=== PATIENT | male | born 1955 | race Caucasian/White ===

== ENCOUNTER 2021-05-28 09:05 | Outpatient (RCR) | payer MEDICARE | END 2021-08-26 | disposition home or self-care (01) | LOC: ONC 09:05 | PROVIDERS: ATTEND Radiology Radiation Oncology | DX: C61 Malignant neoplasm of prostate (principal); I25.10 Atherosclerotic heart disease of native coronary artery without angina pectoris; I11.0 Hypertensive heart disease with heart failure; I50.9 Heart failure, unspecified; J43.9 Emphysema, unspecified; E78.00 Pure hypercholesterolemia, unspecified; M06.9 Rheumatoid arthritis, unspecified | CPT/HCPCS: 99204 ==

== ENCOUNTER → 2021-11-21 | Outpatient (CLI) | payer MEDICARE | END | disposition home or self-care (01) | LOC: PREOP 05:29 | PROVIDERS: ATTEND Radiology Radiation Oncology | DX: Z01.818 Encounter for other preprocedural examination (principal) ==

== ENCOUNTER 2021-11-28 10:45 | Day surgery (SDC) | payer MEDICARE, MEDICAID ==
[~2021-11-28] VITALS: Ht 165.1 cm; Wt 82.7 kg
[2021-11-28] VITALS (11 sets, daily range): BP systolic 130–163; BP diastolic 83–106
[~2021-11-28 10:45] MED LIST: ACHD5005 PO; ATOR20TA66 PO; DILT120T3 PO; FURO40TA4 PO; GUAI120013 PO; IPRA3AMP31 IH; IRON; MAGN500C15 PO; PANT40TA52 PO
[2021-11-28] MEDS ORDERED: LACTATED RINGERS 1,000 ML IV PRN (11:00)
--- NOTE | 2021-11-28 11:26 | Progress Note-Pre Operative ---
Pre-Operative Progress Note H&P Reviewed The H&P was reviewed, patient examined and no changes noted. Date Seen by Provider: Nov 28, 2021 Time Seen by Provider: 11: Date H&P Reviewed: Nov 28, 2021 Time H&P Reviewed: 11: Pre-Operative Diagnosis: Prostate cancer cT1c, PSA 11.5, Flavia 7 (3+4) BINDU KIM MD Nov 28, 2021 11:26
--- NOTE | 2021-11-28 11:29 | Discharge Inst-Simple/Standard ---
Discharge Inst-Standard Reconcile Patient Problems Problems Reviewed?: Yes Discharge Medications New, Converted or Re-Newed RX: Other (Patient already has) Patient Instructions/Follow Up Plan of Care/Instructions/FU: Treatment planning ct scan at [facility] cancer center 12/12/21 at 1:00 pm. Activity as Tolerated: Yes Discharge Diet: No Restrictions BINDU KIM MD Nov 28, 2021 11:29
[2021-11-28] MEDS ORDERED: proPOfol 200 MG/20 ML (DIPRIVAN) VIAL IV ONE (13:34)
[2021-11-28] MEDS ORDERED: LIDOCAINE PF 2% 5 ML (XYLOCAINE) VIAL ONE (13:34)
[2021-11-28] MEDS ORDERED: fentaNYL INJ 100 MCG/2 ML AMP ONE (13:34)
[2021-11-28] MEDS ORDERED: SEVOFLURANE (ULTANE) 15 ML INHAL SOLN ONE (14:11)
[2021-11-28] MEDS ORDERED: ONDANSETRON 4 MG/2 ML (SDV) Z0FRAN ONE (14:11)
--- NOTE | 2021-11-28 14:21 | Progress Note-Post Operative ---
Post-Operative Progess Note Surgeon (s)/Web Editor (s) Surgeon Ashley CISNEROS MD Web Editor: BINDU KIM MD Pre-Operative Diagnosis Prostate cancer cT1c, PSA 11.5, Lynn 7 (3+4) Post-Operative Diagnosis Same as preop Procedure & Operative Findings Date of Procedure 11/28/21 Procedure Performed/Findings (1) Placement of fiducial gold seed markers (2) Injection of biodegradable hydrogel prostate-rectal spacer utilizing the [employer] system Anesthesia Type General Estimated Blood Loss Estimated blood loss (mL): None Specimens/Packing Specimens Removed None Packing: None BINDU KIM MD Nov 28, 2021 14:21
--- NOTE | 2021-11-28 14:24 | Anesthesia-General Post-Op ---
General Patient Condition Mental Status/LOC: Same as Preop Cardiovascular: Satisfactory Nausea/Vomiting: Absent Respiratory: Satisfactory Pain: Controlled Complications: Absent Post Op Complications Complications None Follow Up Care/Instructions Patient Instructions None needed. Anesthesia/Patient Condition Patient Condition Patient is doing well, no complaints, stable vital signs, no apparent adverse anesthesia problems. No complications reported per nursing. BENJAMÍN VELEZ CRNA Nov 28, 2021 14:24
[2021-11-28] MEDS ORDERED: morphine INJ 10 MG/ML 1ML (SYR OR VIAL) ONE (14:29)
[2021-11-28] MEDS ORDERED: morphine INJ 10 MG/ML 1ML (SYR OR VIAL) IVP STA (14:32)
[2021-11-28] MEDS ORDERED: HYDROcodone/APAP 5 MG/325 MG (LORTAB) TAB ONE (15:25)
[2021-11-28] MEDS ORDERED: HYDROcodone/APAP 5 MG/325 MG (LORTAB) TAB PO ONE (15:30)
== END 2021-11-28 16:57 | disposition home or self-care (01) ==
LOC: SDC 10:45
PROVIDERS: ATTEND Radiology Radiation Oncology
DX: C61 Malignant neoplasm of prostate (principal); I11.0 Hypertensive heart disease with heart failure; I50.9 Heart failure, unspecified; I25.10 Atherosclerotic heart disease of native coronary artery without angina pectoris; F17.210 Nicotine dependence, cigarettes, uncomplicated; J44.9 Chronic obstructive pulmonary disease, unspecified; M06.9 Rheumatoid arthritis, unspecified; I73.9 Peripheral vascular disease, unspecified; I25.2 Old myocardial infarction; E78.00 Pure hypercholesterolemia, unspecified; Z85.3 Personal history of malignant neoplasm of breast; Z79.899 Other long term (current) drug therapy; Z99.81 Dependence on supplemental oxygen; Z79.891 Long term (current) use of opiate analgesic; Z98.890 Other specified postprocedural states; Z85.49 Personal history of malignant neoplasm of other male genital organs; Z85.118 Personal history of other malignant neoplasm of bronchus and lung
CPT/HCPCS: 87081

== ENCOUNTER → 2022-01-17 | Outpatient (RCR) | payer MEDICARE, MEDICAID | END | disposition home or self-care (01) | LOC: ONC 12-19 08:50 | PROVIDERS: ATTEND Radiology Radiation Oncology | DX: Z51.0 Encounter for antineoplastic radiation therapy (principal); C61 Malignant neoplasm of prostate; I25.10 Atherosclerotic heart disease of native coronary artery without angina pectoris; I11.0 Hypertensive heart disease with heart failure; I50.9 Heart failure, unspecified; J43.9 Emphysema, unspecified; E78.00 Pure hypercholesterolemia, unspecified; M06.9 Rheumatoid arthritis, unspecified | CPT/HCPCS: 77300; 77301; 77334; 77336; 77338; 77385 ==

== ENCOUNTER 2022-02-05 08:52 | Outpatient (RCR) | payer MEDICARE, MEDICAID ==
[2022-02-13] MEDS ORDERED: FERR325T18 PO (15:07)
[2022-02-13] MEDS ORDERED: POTA-179 PO (15:07)
[2022-02-13] MEDS ORDERED: MULT-1136 PO (15:07)
[2022-02-13] MEDS ORDERED: HYDR-3817 PO (15:07)
[2022-02-13] MEDS ORDERED: MAGN400T7 PO (15:07)
[2022-02-13] MEDS ORDERED: DILT120C85 PO (15:07)
== END 2022-02-16 | disposition home or self-care (01) ==
LOC: ONC 08:52
PROVIDERS: ATTEND Radiology Radiation Oncology
DX: Z51.0 Encounter for antineoplastic radiation therapy (principal); C61 Malignant neoplasm of prostate; I25.10 Atherosclerotic heart disease of native coronary artery without angina pectoris; I11.0 Hypertensive heart disease with heart failure; I50.9 Heart failure, unspecified; J43.9 Emphysema, unspecified; E78.00 Pure hypercholesterolemia, unspecified; M06.9 Rheumatoid arthritis, unspecified
CPT/HCPCS: 77336; 77385

== ENCOUNTER 2022-02-12 09:28 | Inpatient (IN) | payer MEDICARE, MEDICAID ==
[~2022-02-12] VITALS: Ht 165.1 cm; Wt 79.8 kg
[2022-02-12] MEDS ORDERED: RT-ALBUTEROL/IPRATROPIUM 3 ML (DUONEB) VIAL INH ONE (09:45)
[2022-02-12] MEDS ORDERED: fentaNYL INJ 100 MCG/2 ML AMP IVP ONE (09:45)
[2022-02-12] MEDS ORDERED: methylPREDNISolone 125 MG (Solu-MEDROL) VIAL IVP ONE (09:45)
[2022-02-12 09:54] LABS: BASOPHILS % (AUTO) 0 % (0-10); EOSINOPHILS # (AUTO) 0.1 10^3/uL (0.0-0.3); EOSINOPHILS % (AUTO) 1 % (0-10); HEMATOCRIT 40 % (40-54); HEMOGLOBIN 12.9 g/dL (13.3-17.7); LYMPHOCYTES # (AUTO) 1.1 10^3/uL (1.0-4.0); LYMPHOCYTES % (AUTO) 17 % (12-44); MEAN CORPUSCULAR HEMOGLOBIN 31 pg (25-34); MEAN CORPUSCULAR HGB CONC 33 g/dL (32-36); MEAN CORPUSCULAR VOLUME 94 fL (80-99); MEAN PLATELET VOLUME 10.3 fL (9.0-12.2); MONOCYTES # (AUTO) 0.5 10^3/uL (0.0-1.0); MONOCYTES % (AUTO) 8 % (0-12); NEUTROPHILS # (AUTO) 4.7 10^3/uL (1.8-7.8); NEUTROPHILS % (AUTO) 74 % (42-75); PLATELET COUNT 205 10^3/uL (130-400); WHITE BLOOD COUNT 6.4 10^3/uL (4.3-11.0)
[2022-02-12 09:58] LABS: ALBUMIN 4.1 GM/DL (3.2-4.5); POTASSIUM 3.7 MMOL/L (3.6-5.0)
[2022-02-12 09:59] LABS: CALCIUM 9.7 MG/DL (8.5-10.1)
[2022-02-12 10:00] LABS: INR 0.9 (0.8-1.4); PROTHROMBIN TIME PATIENT 12.9 SEC (12.2-14.7); TOTAL PROTEIN 7.4 GM/DL (6.4-8.2)
[2022-02-12 10:02] LABS: BILIRUBIN,TOTAL 0.7 MG/DL (0.1-1.0)
[2022-02-12 10:04] LABS: CREATININE SERUM 0.93 MG/DL (0.60-1.30)
[2022-02-12 10:07] LABS: MAGNESIUM 2.1 MG/DL (1.6-2.4)
--- NOTE | 2022-02-12 10:48 | Diagnostic Imaging Report ---
INDICATION: Cough, dyspnea. TECHNIQUE/COMPARISON: A portable AP view of the chest was obtained. There is no previous study for comparison. FINDINGS: The overall heart size is within normal limits. The pulmonary vascularity is at the upper limits of normal without overt edema. There may be slight basilar atelectasis. No consolidation or significant pleural fluid is seen. IMPRESSION: Borderline pulmonary venous congestion with slight basilar atelectasis. Dictated by: Dictated on workstation # [id number]
[2022-02-12] MEDS ORDERED: HOLD METFORMIN - RECEIVED CONTRAST 20 ML VIAL IV SCH (11:00)
[2022-02-12] MEDS ORDERED: NS 100 ML (IVPB) BAG IV ONE (11:00)
[2022-02-12] MEDS ORDERED: IOHEXOL 350 MG/ML 100 ML (OMNIPAQUE 350) VIAL IV ONE (11:00)
[2022-02-12] MEDS ORDERED: CATHETER FLUSH 10 ML SYR IV PRN ×2 (11:00→15:00)
--- NOTE | 2022-02-12 11:24 | Diagnostic Imaging Report ---
PROCEDURE: CT angiography Chest TECHNIQUE: After intravenous administration of contrast, thin section axial CT angiography of the chest was performed. 3D MIP reconstructions were made. All CT scans use one or more of the following dose optimizing techniques: automated exposure control, MA and/or KvP adjustment based on a patient size and exam type, or iterative reconstruction. INDICATION: Chest pain, cough and shortness of air COMPARISON: Chest radiograph from earlier same day. FINDINGS: Vasculature: No pulmonary emboli. No CT evidence of pulmonary hypertension or right ventricular strain. Thoracic aorta is normal in caliber. No aortic dissection or pseudoaneurysm. Heart and mediastinum: Visualized thyroid is normal. No supraclavicular, axillary, or intra-thoracic lymphadenopathy. The heart is normal in size without pericardial effusion. Dense mitral annulus calcifications are present. Calcification is also present in the aortic valve leaflets. Pleura: Small left and trace right pleural effusions. Lungs and airway: Severe centrilobular emphysema is present. Bandlike opacities are present in the left apex with architectural distortion. There are few patchy centrilobular micro-nodules and groundglass in the left upper lobe as well. No interlobular septal thickening. Upper abdomen: Allowing for the phase of contrast, no acute abnormality in the upper abdomen is seen. Musculoskeletal: No concerning osseous lesion. IMPRESSION: 1. No pulmonary emboli or acute aortic syndrome. 2. Left upper lobe scattered centrilobular opacities and nodules are likely due to an infectious process. 3. Severe emphysema with left apical bandlike opacity and architectural distortion. This is likely due to an area of scar, but no prior imaging is available to document stability. Therefore, advise followup CT chest without contrast in 3 months to reassess 4. Small left and trace right pleural effusions. 5. Calcified aortic valve leaflets can be seen with aortic stenosis. Dictated by: Dictated on workstation # [id number]
[2022-02-12] MEDS ORDERED: CEFEPIME INJECTION 2,000 MG in NS (IVPB) 50 ML IV ONE (13:30)
--- NOTE | 2022-02-12 13:33 | ED General ---
General Chief Complaint: Chest Pain Stated Complaint: SOB Nursing Triage Note: PT TO RM 10 PT CO OF C/P, L SIDE NECK PAIN, COUGH, SOA, DENIES FEVERS. RATES 8/10. PT WEARS O2 @3L PER N/C. Source of Information: Patient Exam Limitations: No Limitations History of Present Illness Date Seen by Provider: Feb 12, 2022 Time Seen by Provider: 09:42 Initial Comments This is 66-year-old gentleman presents to the emergency room by private vehicle with complaints of left-sided pain from his neck down through the upper abdomen with coughing and deep breathing. He has had significant shortness of breath and wheezing for the past several days. It has been progressive and he is now barely able to even walk to the bathroom. He normally wears oxygen at 3 L/min by nasal cannula but has bumped it up to 4 L and is still struggling. He has been afebrile. His primary care provider is at the [facility] clinic in [place]. Allergies and Home Medications Allergies Coded Allergies: No Known Drug Allergies (Unverified , 11/26/21) Patient Home Medication List Home Medication List Reviewed: Yes Atorvastatin Calcium (Atorvastatin Calcium) 20 Mg Tablet, 20 MG PO DAILY, (Reported) Entered as Reported by: GENIA CODY on 11/26/21 1307 Diltiazem HCl (Diltiazem HCl) 120 Mg Tablet, 120 MG PO DAILY, (Reported) Entered as Reported by: GENIA CODY on 11/26/21 1307 Furosemide (Furosemide) 40 Mg Tablet, 40 MG PO DAILY, (Reported) Entered as Reported by: GENIA CODY on 11/26/21 1307 Guaifenesin (Mucinex) 1,200 Mg Tab.er.12h, 1,200 MG PO UD, (Reported) Entered as Reported by: GENIA CODY on 11/26/21 1307 Hydrocodone/Acetaminophen (Hydrocodone-Acetamin 5-325 mg) 1 Each Tablet, 1 TAB PO UD PRN for PAIN-MODERATE (5-7), (Reported) Entered as Reported by: GENIA CODY on 11/26/21 1307 Ipratropium/Albuterol Sulfate (Iprat-Albut 0.5-3(2.5) mg/3 ml) 3 Ml Ampul.neb, 3 ML IH QID PRN for SHORTNESS OF BREATH, (Reported) Entered as Reported by: GENIAMARYCARMEN CODY on 11/26/211306 Magnesium Oxide (Magnesium) 500 Mg Capsule, 500 MG PO HS, (Reported) Entered as Reported by: GENIAMARYCARMEN CODY on 11/26/211306 Pantoprazole Sodium (Pantoprazole Sodium) 40 Mg Tablet.dr, 40 MG PO HS, (Reported) Entered as Reported by: GENIA CODY on 11/26/211306 [Iron] , (Reported) Entered as Reported by: GENIA CODY on 11/26/211306 Review of Systems Review of Systems Constitutional: No fever; weakness EENTM: no symptoms reported Respiratory: see HPI Cardiovascular: no symptoms reported Gastrointestinal: no symptoms reported Genitourinary: no symptoms reported Musculoskeletal: no symptoms reported Skin: no symptoms reported Psychiatric/Neurological: No Symptoms Reported Hematologic/Lymphatic: No Symptoms Reported Immunological/Allergic: no symptoms reported Past Szitwkl-Appbpl-Ggvhpx Hx Patient Social History Tobacco Use?: Yes Tobacco type used: Cigarettes Smoking Status: Current Everyday Smoker Substance use?: No Alcohol Use?: Yes Alcohol type: Beer Alcohol Frequency: Daily Pt feels they are or have been: No Immunizations Up To Date First/Initial COVID19 Vaccinat: APRIL 2021 Second COVID19 Vaccination [place]: MAY 2021 Third COVID19 Vaccination Date: APRIL 2021 Seasonal Allergies Seasonal Allergies: No Past Medical History Surgery/Hospitalization HX: COPD, CHF, PROSTRATE CA Surgeries: Yes Respiratory: Yes COPD, Emphysema Currently Using CPAP: No Currently Using BIPAP: No Cardiac: Yes (CHF) Coronary Artery Disease, Heart Attack, High Cholesterol, Hypertension, Peripheral Vascular Neurological: No Genitourinary: Yes Prostate Problems Gastrointestinal: Yes (HEP C) Gastroesophageal Reflux Musculoskeletal: Yes Arthritis, Rheumatoid Arthritis Endocrine: No HEENT: No Cancer: Yes Prostate Psychosocial: Yes Depression Integumentary: No Physical Exam Vital Signs Vital Signs - First Documented 02/12/22 09:30 Temp 36.6 Pulse 95 Resp 24 B/P (MAP) 154/85 (108) Pulse Ox 95 O2 Delivery Nasal Cannula O2 Flow Rate 2.00 Capillary Refill : Less Than 3 Seconds Height, Weight, BMI Height: '" Weight: lbs. oz. kg; 30.00 BMI Method: General Appearance: No Apparent Distress, WD/WN HEENT: PERRL/EOMI, Normal ENT Inspection Neck: Normal Inspection; No JVD Respiratory: No Respiratory Distress, Crackles (Bibasilar), Decreased Breath Sounds, Wheezing Cardiovascular: Regular Rate, Rhythm, No Edema, No Murmur Gastrointestinal: Normal Bowel Sounds, Non Tender, Soft Extremity: Normal Inspection, Non Tender, No Pedal Edema Neurologic/Psychiatric: Alert, Oriented x3, No Motor/Sensory Deficits, Normal Mood/Affect Skin: Normal Color, Warm/Dry Progress/Results/Core Measures Suspected Sepsis SIRS Temperature: Pulse: 95 Respiratory Rate: 24 Laboratory Tests 02/12/22 09:35: White Blood Count 6.4 Blood Pressure 154 /85 Mean: 108 Laboratory Tests 02/12/22 09:35: Creatinine 0.93, INR Comment 0.9, Platelet Count 205, Total Bilirubin 0.7 Results/Orders Lab Results Laboratory Tests Test 02/12/22 09:35 02/12/22 09:44 Range/Units White Blood Count 6.4 4.3-11.0 10^3/uL Red Blood Count 4.21 L 4.30-5.52 10^6/uL Hemoglobin 12.9 L 13.3-17.7 g/dL Hematocrit 40 40-54 % Mean Corpuscular Volume 94 80-99 fL Mean Corpuscular Hemoglobin 31 25-34 pg Mean Corpuscular Hemoglobin Concent 33 32-36 g/dL Red Cell Distribution Width 16.4 H 10.0-14.5 % Platelet Count 205 130-400 10^3/uL Mean Platelet Volume 10.3 9.0-12.2 fL Immature Granulocyte % (Auto) 1 % Neutrophils (%) (Auto) 74 42-75 % Lymphocytes (%) (Auto) 17 12-44 % Monocytes (%) (Auto) 8 0-12 % Eosinophils (%) (Auto) 1 0-10 % Basophils (%) (Auto) 0 0-10 % Neutrophils # (Auto) 4.7 1.8-7.8 10^3/uL Lymphocytes # (Auto) 1.1 1.0-4.0 10^3/uL Monocytes # (Auto) 0.5 0.0-1.0 10^3/uL Eosinophils # (Auto) 0.1 0.0-0.3 10^3/uL Basophils # (Auto) 0.0 0.0-0.1 10^3/uL Immature Granulocyte # (Auto) 0.0 0.0-0.1 10^3/uL Prothrombin Time 12.9 12.2-14.7 SEC INR Comment 0.9 0.8-1.4 Activated Partial Thromboplast Time 28 24-35 SEC D-Dimer 1.32 H 0.00-0.49 UG/ML Sodium Level 141 135-145 MMOL/L Potassium Level 3.7 3.6-5.0 MMOL/L Chloride Level 102 98-107 MMOL/L Carbon Dioxide Level 23 21-32 MMOL/L Anion Gap 16 H 5-14 MMOL/L Blood Urea Nitrogen 9 7-18 MG/DL Creatinine 0.93 0.60-1.30 MG/DL Estimat Glomerular Filtration Rate 91 BUN/Creatinine Ratio 10 Glucose Level 113 H 70-105 MG/DL Calcium Level 9.7 8.5-10.1 MG/DL Corrected Calcium 9.6 8.5-10.1 MG/DL Magnesium Level 2.1 1.6-2.4 MG/DL Total Bilirubin 0.7 0.1-1.0 MG/DL Aspartate Amino Transf (AST/SGOT) 27 5-34 U/L Alanine Aminotransferase (ALT/SGPT) 26 0-55 U/L Alkaline Phosphatase 114 40-136 U/L Myoglobin 80.5 10.0-92.0 NG/ML Troponin I < 0.028 <0.028 NG/ML C-Reactive Protein High Sensitivity 1.59 H 0.00-0.50 MG/DL B-Type Natriuretic Peptide 376.2 H <100.0 PG/ML Total Protein 7.4 6.4-8.2 GM/DL Albumin 4.1 3.2-4.5 GM/DL Influenza Type A (RT-PCR) Not Detected Not Detecte Influenza Type B (RT-PCR) Not Detected Not Detecte SARS-CoV-2 RNA (RT-PCR) Not Detected Not Detecte My Orders Orders - SHAWN BROWN MD Fentanyl Inj (Sublimaze Injection) (02/12/22 09:45) Cbc With Automated Diff (02/12/22 09:41) Magnesium (02/12/22 09:41) Chest 1 View, Ap/Pa Only (02/12/22 09:41) Ekg Tracing (02/12/22 09:41) Comprehensive Metabolic Panel (02/12/22 09:41) Myoglobin Serum (02/12/22 09:41) Protime With Inr (02/12/22 09:41) Partial Thromboplastin Time (02/12/22 09:41) O2 (02/12/22 09:41) Monitor-Rhythm Ecg Trace Only (02/12/22 09:41) Lipid Panel (02/13/22 06:00) Ed Iv/Invasive Line Start (02/12/22 09:41) Bnp Abdiel (02/12/22 09:41) Fibrin Degradation Products (02/12/22 09:41) Troponin I Abdiel (02/12/22 09:41) Methylprednisolone Sod Succ (Solu-Medrol (02/12/22 09:45) Albuterol/Ipra Inhalation Soln (Duoneb I (02/12/22 09:45) Svn Small Volume Nebulizer (02/12/22 09:42) Covid 19 Inhouse Test (02/12/22 09:42) Influenza A And B By Pcr (02/12/22 09:42) Hs C Reactive Protein (02/12/22 09:45) Ct Angio Chest W (02/12/22 10:43) Iohexol Injection (Omnipaque 350 Mg/Ml 1 (02/12/22 11:00) Received Contrast (Hold Metformin- Contr (02/12/22 11:00) Ns (Ivpb) (Sodium Chloride 0.9% Ivpb Bag (02/12/22 11:00) Sodium Chloride Flush (Catheter Flush Sy (02/12/22 11:00) Blood Culture (02/12/22 13:24) Lactic Acid Analyzer (02/12/22 13:24) Cefepime Injection (Maxipime Injection) (02/12/22 13:30) Medications Given in ED Current Medications Medications Dose Ordered Sig/Elvia Route Start Time Stop Time Status Last Admin Dose Admin Albuterol/ Ipratropium 3 ml ONCE ONCE INH 02/12/22 09:45 02/12/22 09:46 DC 02/12/22 09:58 3 ML Cefepime HCl 2000 mg/Sodium Chloride 50 ml @ 100 mls/hr ONCE ONCE IV 02/12/22 13:30 02/12/22 13:59 DC 02/12/22 13:54 100 MLS/HR Fentanyl Citrate 50 mcg ONCE ONCE IVP 02/12/22 09:45 02/12/22 09:46 DC 02/12/22 09:52 50 MCG Iohexol 100 ml ONCE ONCE IV 02/12/22 11:00 02/12/22 11:01 DC 02/12/22 11:10 75 ML Methylprednisolone Sodium Succinate 125 mg ONCE ONCE IVP 02/12/22 09:45 02/12/22 09:46 DC 02/12/22 09:52 125 MG Sodium Chloride 10 ml NEEDED PRN IV 02/12/22 11:00 02/12/22 14:32 DC 02/12/22 11:10 10 ML Sodium Chloride 100 ml ONCE ONCE IV 02/12/22 11:00 02/12/22 11:01 DC 02/12/22 11:10 80 ML Vital Signs/I&O 02/12/22 02/12/22 02/12/22 09:30 09:30 09:59 Temp 36.6 Pulse 95 Resp 24 B/P (MAP) 154/85 (108) Pulse Ox 95 95 95 O2 Delivery Nasal Cannula Nasal Cannula O2 Flow Rate 2.00 3.00 Capillary Refill : Less Than 3 Seconds Blood Pressure Mean: 108 Progress Note #1: Time: 13:31 Progress Note Cardiac work-up was unremarkable. D-dimer was mildly elevated. CT angiogram was obtained and revealed no PE but did reveal pneumonia. Patient is being treated with cefepime after blood cultures and lactic acid. Case was discussed with Dr. Cabezas who is agreeable to admission. I discussed CODE STATUS with the patient and he wishes to remain full code. Solu-Medrol was given for COPD exacerbation and DuoNeb treatment was administered. DuoNeb significantly improved his breathing. Patient does not feel he is compensating well at home and is at risk for falls and other complications. Admission to the hospital seems reasonable due to his severity of symptoms and increased oxygen demand. Progress Note #2: Progress Note We did discuss the abnormalities on his CT scan in the left lung. Patient states he is aware of those and they are being monitored by his search specialist in [place]. ECG Initial ECG Impression Date: Feb 12, 2022 Initial ECG Impression Time: 09:53 Initial ECG Rate: 91 Initial ECG Rhythm: Normal Sinus Initial ECG Intervals: Normal Comment Normal sinus rhythm with no ST elevation or depression. No abnormal intervals. Borderline left axis deviation. Diagnostic Imaging Diagonstic Imaging: Xray Plain Films/CT/US/NM/MRI: chest Comments Chest x-ray viewed by me and report reviewed. See report below: NAME: EL CLIFFORD [facility] REC#: [id number] PT STATUS: REG ER : 1955 PHYSICIAN: SHAWN BROWN MD ADMIT DATE: 02/12/22/ER Signed Date of Exam:02/12/22 CHEST 1 VIEW, AP/PA ONLY INDICATION: Cough, dyspnea. TECHNIQUE/COMPARISON: A portable AP view of the chest was obtained. There is no previous study for comparison. FINDINGS: The overall heart size is within normal limits. The pulmonary vascularity is at the upper limits of normal without overt edema. There may be slight basilar atelectasis. No consolidation or significant pleural fluid is seen. IMPRESSION: Borderline pulmonary venous congestion with slight basilar atelectasis. Dictated by: Dictated on workstation # [id number] Dict: 02/12/22 1044 Trans: 02/12/22 1138 [id number] Interpreted by: FLORINDA ROBERTSON MD Electronically signed by: FLORINDA ROBERTSON MD 02/12/22 1138 Diagonstic Imaging: CT Plain Films/CT/US/NM/MRI: chest Comments CT angiogram chest viewed by me and report reviewed. See report below: NAME: EL CLIFFORD [facility] REC#: [id number] PT STATUS: REG ER : 1955 PHYSICIAN: SHAWN BROWN MD ADMIT DATE: 02/12/22/ER Signed Date of Exam:02/12/22 CT ANGIO CHEST W PROCEDURE: CT angiography Chest TECHNIQUE: After intravenous administration of contrast, thin section axial CT angiography of the chest was performed. 3D MIP reconstructions were made. All CT scans use one or more of the following dose optimizing techniques: automated exposure control, MA and/or KvP adjustment based on a patient size and exam type, or iterative reconstruction. INDICATION: Chest pain, cough and shortness of air COMPARISON: Chest radiograph from earlier same day. FINDINGS: Vasculature: No pulmonary emboli. No CT evidence of pulmonary hypertension or right ventricular strain. Thoracic aorta is normal in caliber. No aortic dissection or pseudoaneurysm. Heart and mediastinum: Visualized thyroid is normal. No supraclavicular, axillary, or intra-thoracic lymphadenopathy. The heart is normal in size without pericardial effusion. Dense mitral annulus calcifications are present. Calcification is also present in the aortic valve leaflets. Pleura: Small left and trace right pleural effusions. Lungs and airway: Severe centrilobular emphysema is present. Bandlike opacities are present in the left apex with architectural distortion. There are few patchy centrilobular micro-nodules and groundglass in the left upper lobe as well. No interlobular septal thickening. Upper abdomen: Allowing for the phase of contrast, no acute abnormality in the upper abdomen is seen. Musculoskeletal: No concerning osseous lesion. IMPRESSION: 1. No pulmonary emboli or acute aortic syndrome. 2. Left upper lobe scattered centrilobular opacities and nodules are likely due to an infectious process. 3. Severe emphysema with left apical bandlike opacity and architectural distortion. This is likely due to an area of scar, but no prior imaging is available to document stability. Therefore, advise followup CT chest without contrast in 3 months to reassess 4. Small left and trace right pleural effusions. 5. Calcified aortic valve leaflets can be seen with aortic stenosis. Dictated by: Dictated on workstation # [id number] Dict: 02/12/22 1117 Trans: 02/12/22 1127 [id number] [id number] Interpreted by: EDGAR ESCOBEDO MD Electronically signed by: EDGAR ESCOBEDO MD 02/12/22 1127 Departure Communication (Admissions) Time/Spoke to Admitting Phy: 13:20 Dr. Cabezas Impression Primary Impression: Pneumonia Qualified Codes: J18.9 - Pneumonia, unspecified organism Additional Impressions: Atypical chest pain COPD exacerbation Disposition: ADMITTED INPATIENT Condition: Improved Admissions Decision to Admit Reason: Admit from ER (General) Decision to Admit/Date: Feb 12, 2022 Time/Decision to Admit Time: 13:20 Departure-Patient Inst. [facility] Primary Care Physician SHAWN BROWN MD Feb 12, 2022 13:33
[2022-02-12] MEDS ORDERED: KETOROLAC 30 MG/ML VIAL IVP ONE (13:45)
[2022-02-12] MEDS ORDERED: RT-ALBUTEROL/IPRATROPIUM 3 ML (DUONEB) VIAL ONE (14:52)
[2022-02-12] MEDS ORDERED: ONDANSETRON 4 MG/2 ML (SDV) Z0FRAN IVP PRN (15:00)
[2022-02-12 15:01] VITALS: BP 124/69
[2022-02-12 16:00] VITALS: BP 107/71
[2022-02-12] MEDS: methylPREDNISolone 40 MG/ML (Solu-MEDROL) VIAL IV SCH ×2 (16:33→21:05)
[2022-02-12] MEDS ORDERED: NICOTINE 21 MG (NICODERM) PATCH ONE (16:42)
[2022-02-12] MEDS: RT-ALBUTEROL/IPRATROPIUM 3 ML (DUONEB) VIAL INH SCH ×2 (18:48→21:24)
[2022-02-12 20:00] VITALS: BP 126/76
[2022-02-12] MEDS: CATHETER FLUSH 10 ML SYR IV SCH (21:05)
[2022-02-12] MEDS: HYDROcodone/APAP 7.5 MG/325 MG (LORTAB, LORCET PLUS) TABLET PO PRN (21:39)
[2022-02-13 00:20] VITALS: BP 139/71
[2022-02-13] MEDS: RT-ALBUTEROL/IPRATROPIUM 3 ML (DUONEB) VIAL INH SCH ×6 (01:50→21:39)
[2022-02-13] MEDS: CEFEPIME INJECTION 2,000 MG in NS (IVPB) 50 ML IV SCH ×2 (01:55→13:16)
[2022-02-13] MEDS: HYDROcodone/APAP 7.5 MG/325 MG (LORTAB, LORCET PLUS) TABLET PO PRN ×2 (03:27→13:54)
[2022-02-13] MEDS: methylPREDNISolone 40 MG/ML (Solu-MEDROL) VIAL IV SCH ×4 (03:55→21:34)
[2022-02-13] MEDS: CATHETER FLUSH 10 ML SYR IV SCH ×3 (03:55→21:39)
[2022-02-13 03:59] VITALS: BP 124/68
[2022-02-13] MEDS: ALPRAZolam 0.5 MG (XANAX) TAB PO PRN ×2 (05:16→14:32)
[2022-02-13 06:04] LABS: BASOPHILS % (AUTO) 0 % (0-10); EOSINOPHILS % (AUTO) 0 % (0-10); HEMATOCRIT 34 % (40-54); HEMOGLOBIN 11.2 g/dL (13.3-17.7); LYMPHOCYTES # (AUTO) 0.4 X 10^3 (1.0-4.0); LYMPHOCYTES % (AUTO) 7 % (12-44); MEAN CORPUSCULAR HEMOGLOBIN 31 pg (25-34); MEAN CORPUSCULAR HGB CONC 33 g/dL (32-36); MEAN CORPUSCULAR VOLUME 93 fL (80-99); MEAN PLATELET VOLUME 10.5 fL (9.0-12.2); MONOCYTES # (AUTO) 0.2 X 10^3 (0.0-1.0); MONOCYTES % (AUTO) 3 % (0-12); NEUTROPHILS # (AUTO) 5.5 X 10^3 (1.8-7.8); NEUTROPHILS % (AUTO) 89 % (42-75); PLATELET COUNT 206 10^3/uL (130-400); WHITE BLOOD COUNT 6.2 10^3/uL (4.3-11.0)
[2022-02-13 06:09] LABS: POTASSIUM 3.9 MMOL/L (3.6-5.0)
[2022-02-13 06:10] LABS: CALCIUM 9.9 MG/DL (8.5-10.1)
[2022-02-13 06:15] LABS: CREATININE SERUM 1.1 MG/DL (0.60-1.30)
[2022-02-13 07:19] LABS: BAND NEUTROPHILS 1 %; BASOPHILS % (MANUAL) 0 %; EOSINOPHILS % (MANUAL) 0 %; LYMPHOCYTES % (MANUAL) 8 %; METAMYELOCYTES % 1 %; MONOCYTES % (MANUAL) 2 %; NEUTROPHILS % (MANUAL) 88 %; RBC MORPH NORMAL
--- NOTE | 2022-02-13 07:41 | Diagnostic Imaging Report ---
Indication: Cough with dyspnea. Comparison with 02/12/2022. FINDINGS: Heart is not enlarged. The lungs are well-aerated. There does appear to be developing atelectasis or infiltrate in the right lung base. Costophrenic angles are sharp. No evidence of pulmonary edema. IMPRESSION: Increasing infiltrate and/or atelectasis right lung base since previous exam. Dictated by: Dictated on workstation # [id number]
[2022-02-13] MEDS: RT-ALBUTEROL/IPRATROPIUM 3 ML (DUONEB) VIAL INH PRN (07:54)
[2022-02-13 07:56] VITALS: BP 103/63
[2022-02-13] MEDS ORDERED: NICOTINE 21 MG (NICODERM) PATCH TD SCH (09:00)
[2022-02-13] MEDS: NICOTINE 21 MG (NICODERM) PATCH TD SCH (09:12)
[2022-02-13 11:40] VITALS: BP 103/63
[2022-02-13] MEDS ORDERED: morphine INJ 10 MG/ML 1ML (SYR OR VIAL) IVP PRN (12:00)
[2022-02-13] MEDS: morphine INJ 4 MG/ML 1 ML (VIAL/SYRINGE) IV PRN ×3 (13:14→19:55)
[2022-02-13] MEDS: PROMETHAZINE/ CODEINE SYRUP 5 ML UDC PO PRN ×3 (13:14→23:30)
[2022-02-13] MEDS ORDERED: MULT-1136 PO (15:07)
[2022-02-13] MEDS ORDERED: POTA-179 PO (15:07)
[2022-02-13] MEDS ORDERED: MAGN400T7 PO (15:07)
[2022-02-13] MEDS ORDERED: HYDR-3817 PO (15:07)
[2022-02-13] MEDS ORDERED: DILT120C85 PO (15:07)
[2022-02-13] MEDS ORDERED: FERR325T18 PO (15:07)
[2022-02-13 16:00] VITALS: BP 109/63
--- NOTE | 2022-02-13 19:59 | History & Physical ---
HPI History of Present Illness: 66 yo M with known severe COPD with baseline oxygen need. Patient states that about the last week he has been getting progressively short of breath and has had several attacks. States that in those attacks he was able to sit down and rest and take his inhalers and has felt better but last night that did not help. He is also complaining of rib and abdominal pain which he attributes to his coughing. Denies any chest pain, N/V. Denies any recent contacts and states that he stays at home and is not around many people. Denies missing any doses of his inhalers. No fevers or chills. Source: patient Exam Limitations: no limitations Date seen by provider: Feb 13, 2022 Time Seen by Provider: 10:25 Attending Physician Jean Marie Cabezas MD PCP [facility] Consult Date of Admission Feb 12, 2022 at 13:35 Home Medications Home Medications Reviewed patient Home Medication Reconciliation performed by pharmacy medication reconciliations skin care technician and/or nursing. Patients Allergies have been reviewed. 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: [employer] Past Medical History COPD with baseline oxygen need 4L HTN HLD Iron Def anemia Review of Systems (CHC) Constitutional: weakness EENTM: nose congestion, throat pain Respiratory: cough, dyspnea on exertion, phlegm, short of breath Cardiovascular: no symptoms reported Gastrointestinal: abdominal pain, loss of appetite Genitourinary: no symptoms reported Musculoskeletal: back pain, muscle pain Skin: no symptoms reported Psychiatric/Neurological: No Symptoms Reported Reviewed Test Results Reviewed Test Results Lab Laboratory Tests Test 02/13/22 05:45 Range/Units White Blood Count 6.2 4.3-11.0 10^3/uL Red Blood Count 3.65 L 4.30-5.52 10^6/uL Hemoglobin 11.2 L 13.3-17.7 g/dL Hematocrit 34 L 40-54 % Mean Corpuscular Volume 93 80-99 fL Mean Corpuscular Hemoglobin 31 25-34 pg Mean Corpuscular Hemoglobin Concent 33 32-36 g/dL Red Cell Distribution Width 15.9 H 10.0-14.5 % Platelet Count 206 130-400 10^3/uL Mean Platelet Volume 10.5 9.0-12.2 fL Immature Granulocyte % (Auto) 1 % Neutrophils (%) (Auto) 89 H 42-75 % Lymphocytes (%) (Auto) 7 L 12-44 % Monocytes (%) (Auto) 3 0-12 % Eosinophils (%) (Auto) 0 0-10 % Basophils (%) (Auto) 0 0-10 % Neutrophils # (Auto) 5.5 1.8-7.8 X 10^3 Lymphocytes # (Auto) 0.4 L 1.0-4.0 X 10^3 Monocytes # (Auto) 0.2 0.0-1.0 X 10^3 Eosinophils # (Auto) 0.0 0.0-0.3 10^3/uL Basophils # (Auto) 0.0 0.0-0.1 10^3/uL Immature Granulocyte # (Auto) 0.1 0.0-0.1 10^3/uL Neutrophils % (Manual) 88 % Lymphocytes % (Manual) 8 % Monocytes % (Manual) 2 % Eosinophils % (Manual) 0 % Basophils % (Manual) 0 % Metamyelocytes % 1 % Band Neutrophils 1 % Blood Morphology Comment NORMAL Sodium Level 140 135-145 MMOL/L Potassium Level 3.9 3.6-5.0 MMOL/L Chloride Level 106 98-107 MMOL/L Carbon Dioxide Level 20 L 21-32 MMOL/L Anion Gap 14 5-14 MMOL/L Blood Urea Nitrogen 26 H 7-18 MG/DL Creatinine 1.10 0.60-1.30 MG/DL Estimat Glomerular Filtration Rate 74 BUN/Creatinine Ratio 24 Glucose Level 146 H 70-105 MG/DL Calcium Level 9.9 8.5-10.1 MG/DL C-Reactive Protein High Sensitivity 1.12 H 0.00-0.50 MG/DL Triglycerides Level 69 <150 MG/DL Cholesterol Level 115 < 200 MG/DL LDL Cholesterol Direct 57 1-129 MG/DL VLDL Cholesterol 14 5-40 MG/DL HDL Cholesterol 41 40-60 MG/DL Procalcitonin 1.75 H <0.10 NG/ML Physical Exam-(CHC) Physical Exam Vital Signs VS - Last 72 Hours, by Label 02/12/22 02/12/22 02/12/22 02/12/22 09:30 09:30 09:59 14:00 Temp 36.6 Pulse 95 84 Resp 24 18 B/P (MAP) 154/85 (108) 124/69 Pulse Ox 95 95 95 96 O2 Delivery Nasal Cannula Nasal Cannula Nasal Cannula O2 Flow Rate 2.00 3.00 3.00 02/12/22 02/12/22 02/12/22 02/12/22 14:41 14:59 15:01 16:00 Temp 36.6 37.0 Pulse 84 89 Resp 16 B/P (MAP) 107/71 (83) Pulse Ox 91 95 95 95 O2 Delivery Nasal Cannula Nasal Cannula Nasal Cannula O2 Flow Rate 5.00 4.00 5.00 02/12/22 02/12/22 02/12/22 02/12/22 18:48 19:50 20:00 21:24 Temp 37.2 Pulse 100 Resp 20 B/P (MAP) 126/76 (93) Pulse Ox 97 96 97 96 O2 Delivery Nasal Cannula Nasal Cannula Nasal Cannula Nasal Cannula O2 Flow Rate 5.00 5.00 5.00 5.00 02/13/22 02/13/22 02/13/22 02/13/22 00:20 01:50 03:59 07:54 Temp 36.7 36.9 Pulse 103 100 Resp 20 20 B/P (MAP) 139/71 (93) 124/68 (86) Pulse Ox 92 94 92 98 O2 Delivery Nasal Cannula Nasal Cannula Nasal Cannula Nasal Cannula O2 Flow Rate 3.00 5.00 3.00 5.00 02/13/22 02/13/22 02/13/22 02/13/22 07:56 07:59 08:00 08:13 Temp 36.5 Pulse 87 Resp 19 B/P (MAP) 103/63 (76) Pulse Ox 94 94 97 O2 Delivery Nasal Cannula Nasal Cannula Nasal Cannula Nasal Cannula O2 Flow Rate 3.00 3.00 3.00 3.00 02/13/22 02/13/22 02/13/22 02/13/22 10:40 11:40 15:03 16:00 Temp 36.8 36.9 Pulse 108 100 Resp 20 20 B/P (MAP) 103/63 (76) 109/63 (78) Pulse Ox 94 94 96 93 O2 Delivery Nasal Cannula Nasal Cannula Nasal Cannula Nasal Cannula O2 Flow Rate 3.00 3.00 3.00 3.00 02/13/22 18:24 Pulse Ox 93 O2 Delivery Nasal Cannula O2 Flow Rate 3.00 Capillary Refill : Less Than 3 Seconds General Appearance: moderate distress (several coughing fits during visit) HEENT: PERRL/EOMI Neck: non-tender, supple Respiratory: accessory muscle use, wheezing, expiration, other (chest ttp) Cardiovascular: normal peripheral pulses, regular rate, rhythm, no edema, no murmur Gastrointestinal: normal bowel sounds, soft Back: no CVA tenderness Extremities: no calf tenderness, normal capillary refill, pedal edema (1+ pitting edema in LE equal bilaterally) Neurologic/Psychiatric: possum trapper II-XII nml as tested, alert, oriented x 3 Skin: normal color, warm/dry Lymphatic: no adenopathy Assessment/Plan Assessment/Plan Admission Status: Inpatient Order (span 2 midnights) Reason for Inpatient Admission: Patient requiring increase oxygen need, high risk of decompensation with COPD and reported CHF (1) COPD exacerbation Status: Acute Assessment & Plan: - IV steroids/antibiotics, Cefepime, blood cultures pending, MAT protocol (2) PNA (pneumonia) Status: Acute Qualifiers: Qualified Codes: J18.9 - Pneumonia, unspecified organism (3) Abdominal pain Status: Acute Assessment & Plan: - thought to be more from coughing, started on cough medicine and his home pain meds Qualifiers: Qualified Codes: R10.13 - Epigastric pain (4) Rib pain Status: Acute (5) Lower extremity weakness Status: Acute Assessment & Plan: - Will order PT Qualifiers: Qualified Codes: R29.898 - Other symptoms and signs involving the musculoskeletal system (6) HLD (hyperlipidemia) Status: Chronic Assessment & Plan: - Continue home meds (7) HTN (hypertension) Status: Chronic Assessment & Plan: - Holding home bp meds due to normotension and risk of developing sepsis (8) DVT prophylaxis Status: Acute Assessment & Plan: - lovenox Clinical Quality Measures AMI/AHF: ASA po Prior to arrival: JEAN MARIE Bennett MD Feb 13, 2022 19:59
[2022-02-13 20:00] VITALS: BP 99/65
[2022-02-13] MEDS ORDERED: ENOXAPARIN 40 MG/0.4 ML (LOVENOX) SYR SQ SCH (21:30)
[2022-02-14] VITALS: BP 115/68
[2022-02-14] MEDS: morphine INJ 4 MG/ML 1 ML (VIAL/SYRINGE) IV PRN (01:54)
[2022-02-14] MEDS: CEFEPIME INJECTION 2,000 MG in NS (IVPB) 50 ML IV SCH ×2 (01:56→13:44)
[2022-02-14] MEDS: RT-ALBUTEROL/IPRATROPIUM 3 ML (DUONEB) VIAL INH SCH ×6 (02:10→22:04)
[2022-02-14] MEDS: ALPRAZolam 0.5 MG (XANAX) TAB PO PRN (02:32)
[2022-02-14] MEDS: methylPREDNISolone 40 MG/ML (Solu-MEDROL) VIAL IV SCH ×4 (04:01→21:45)
[2022-02-14 04:03] VITALS: BP 117/70
[2022-02-14] MEDS: CATHETER FLUSH 10 ML SYR IV SCH ×3 (04:04→21:48)
[2022-02-14] MEDS: HYDROcodone/APAP 7.5 MG/325 MG (LORTAB, LORCET PLUS) TABLET PO PRN ×3 (04:07→20:45)
[2022-02-14 06:10] LABS: BASOPHILS % (AUTO) 0 % (0-10); EOSINOPHILS % (AUTO) 0 % (0-10); HEMATOCRIT 34 % (40-54); LYMPHOCYTES # (AUTO) 0.4 10^3/uL (1.0-4.0); LYMPHOCYTES % (AUTO) 5 % (12-44); MEAN CORPUSCULAR HEMOGLOBIN 30 pg (25-34); MEAN CORPUSCULAR HGB CONC 32 g/dL (32-36); MEAN CORPUSCULAR VOLUME 94 fL (80-99); MEAN PLATELET VOLUME 10.7 fL (9.0-12.2); MONOCYTES # (AUTO) 0.3 10^3/uL (0.0-1.0); MONOCYTES % (AUTO) 4 % (0-12); NEUTROPHILS # (AUTO) 6.4 10^3/uL (1.8-7.8); NEUTROPHILS % (AUTO) 90 % (42-75); PLATELET COUNT 213 10^3/uL (130-400); WHITE BLOOD COUNT 7.1 10^3/uL (4.3-11.0)
[2022-02-14 06:23] LABS: ALBUMIN 3.7 GM/DL (3.2-4.5); POTASSIUM 4.6 MMOL/L (3.6-5.0)
[2022-02-14 06:24] LABS: CALCIUM 9.8 MG/DL (8.5-10.1)
[2022-02-14 06:26] LABS: TOTAL PROTEIN 6.6 GM/DL (6.4-8.2)
[2022-02-14 06:27] LABS: BILIRUBIN,TOTAL 0.4 MG/DL (0.1-1.0)
[2022-02-14 06:29] LABS: CREATININE SERUM 0.95 MG/DL (0.60-1.30)
[2022-02-14] MEDS: NICOTINE 21 MG (NICODERM) PATCH TD SCH (07:43)
[2022-02-14] MEDS: NICOTINE PATCH REMOVAL TP SCH (07:43)
[2022-02-14] MEDS: PROMETHAZINE/ CODEINE SYRUP 5 ML UDC PO PRN ×3 (07:47→20:56)
[2022-02-14 08:07] VITALS: BP 117/75
[2022-02-14] MEDS ORDERED: PATCH REMOVAL TP SCH (09:00)
--- NOTE | 2022-02-14 09:11 | Physical Therapy Progress Note ---
Therapy Progress Note Patient on Hold per RN due to decline in respiratory status. PT will monitor patient status and initiate treatment when patient is medically stable. DOUGLAS WILEY PT Feb 14, 2022 09:11
[2022-02-14] MEDS: morphine INJ 4 MG/ML 1 ML (VIAL/SYRINGE) IVP PRN ×4 (10:25→21:45)
[2022-02-14] MEDS ORDERED: morphine INJ 4 MG/ML 1 ML (VIAL/SYRINGE) IV PRN (10:30)
--- NOTE | 2022-02-14 10:49 | Tele-ICU Progress Note ---
Subjective Date Seen by a Provider: Feb 14, 2022 Time Seen by a Provider: 10:15 Subjective/Events-last exam This virtual visit was conducted using real time audio/video. Thank you for asking us to see this patient for respiratory insufficiency due to AECOPD, posssible pna. PMH: COPD/HOME O2 3 LPM, hl, chf,cad, htn, gerd, rheum arth., prost CA, PAD, CAD. SH: smoking history: current FH: Non-contributory ROS: as in HPI. PE: Mild distress. VSS. O2 sat 94% on BiPAP HEENT: No obvious masses, adenopathy or JVD. Chest: Diminished, with wheezes on auscultation. CV: RRR S1 S2 No murmur or added sounds. Abd: Non-tender. Bowel sounds Y. : Unremarkable. Vanessa N. BRICKLAYER TENDER/psychiatric: Grossly intact. No obvious focal findings. Extremities: No edema. Capillary refill < 3 seconds. Skin: unremarkable. Results: Decreased Hb 11. BG: pending. CXR: hyperinflated w possible bibasilar infilts. CTAC neg for PE. Available chart/ vitals / labs / images reviewed. Video assessment done using teleICU camera, rest of exam as per RN. A/P: Respiratory insufficiency: Continue present management with BiPAP, medrol, duonebs Monitor for increasing oxygenation needs and/or need for intubation. Critical Care: critically ill patient. Cont. abx, promise., nicotine patch. Discussed with RN Margarita. Asked RN to reach out to eICU if any questions or concerns later. Time spent with patient/coordination of care with other health professionals (mins):35 Sepsis Event Evaluation Height, Weight, BMI Height: '" Weight: lbs. oz. kg; 30.04 BMI Method: Focused Exam Lactate Level 02/12/22 13:50: Lactic Acid Level 1.24 Exam Exam Patient acknowledged, consented, and participated in this virtual visit which was conducted using real time audio/video Vital Signs Date Time Temp Pulse Resp B/P (MAP) Pulse Ox O2 Delivery O2 Flow Rate FiO2 02/14/22 10:15 NIV Bilevel 35.00 02/14/22 10:09 36.4 22 128/76 Nasal Cannula 3.00 02/14/22 10:08 113 02/14/22 08:07 36.4 92 20 117/75 (89) 94 Nasal Cannula 3.00 02/14/22 08:00 3 Nasal Cannula 02/14/22 04:03 36.4 85 20 117/70 (86) 95 Nasal Cannula 3.00 02/14/22 02:10 90 Nasal Cannula 3.00 02/14/22 00:00 36.2 94 20 115/68 (84) 93 Nasal Cannula 3.00 02/13/22 21:39 96 Nasal Cannula 3.00 02/13/22 20:00 36.6 100 18 99/65 (76) 93 Nasal Cannula 3.00 02/13/22 19:50 96 Nasal Cannula 3.00 02/13/22 18:24 93 Nasal Cannula 3.00 02/13/22 16:00 36.9 100 20 109/63 (78) 93 Nasal Cannula 3.00 02/13/22 15:03 96 Nasal Cannula 3.00 02/13/22 11:40 36.8 108 20 103/63 (76) 94 Nasal Cannula 3.00 02/13/22 10:40 94 Nasal Cannula 3.00 I & O 02/14/22 06:59 Intake Total 2845 ml Output Total 975 ml Balance 1870 ml Height & Weight Height: '" Weight: lbs. oz. kg; 30.04 BMI Method: General Appearance: No Apparent Distress, WD/WN HEENT: PERRL/EOMI, Normal ENT Inspection Neck: Normal Inspection; No JVD Respiratory: No Respiratory Distress, Crackles (Bibasilar), Decreased Breath Sounds, Wheezing Cardiovascular: Regular Rate, Rhythm, No Edema, No Murmur Capillary Refill: Less Than 3 Seconds Gastrointestinal: normal bowel sounds, soft Extremity: Normal Inspection, Non Tender, No Pedal Edema Neurologic/Psychiatric: Alert, Oriented x3, No Motor/Sensory Deficits, Normal Mood/Affect Skin: Normal Color, Warm/Dry Results Lab Laboratory Tests 02/13/22 05:45 02/14/22 05:44 Assessment/Plan Assessment/Plan See free text. Critical Care: Critically Ill Patient MARGARITA PETTY MD Feb 14, 2022 10:49
[2022-02-14] MEDS: LORazepam INJ 2 MG/ML (ATIVAN) VIAL IVP PRN ×3 (11:08→21:45)
[2022-02-14 12:46] LABS: ABG BASE EXCESS -2.2 MMOL/L (-2.5-2.5); ABG OXYGEN SATURATION 84 % (94-100); ABG PCO2 36 MMHG (35-45); ABG PO2 50 MMHG (79-93); ABG TCO2 23.1 MMOL/L (21.0-31.0)
[2022-02-14 12:47] LABS: ALLENS TEST POSITIVE; INSPIRED O2 35%; PATIENT TEMP 36.4; VENTILATOR NO
[2022-02-14 13:35] VITALS: BP 118/92
[2022-02-14] MEDS ORDERED: dilTIAZem120 MG (CARDIZEM CD) CAP PO NR (17:00)
[2022-02-14] MEDS ORDERED: FUROSEMIDE 40 MG (LASIX) TAB PO NR (17:00)
[2022-02-14] MEDS: inSUlin ASPART (NovoLOG) 1 UNIT/0.01 ML (CHARGE PER UNIT) SC SCH ×2 (17:44→21:47)
--- NOTE | 2022-02-14 18:15 | Progress Note ---
Subjective Subjective/Events-last exam Called to patient's room due to increase in shortness of breath. RT gave patient hr long treatment with minimal improvement and suggests that patient be started on bipap. He states he is having alot of pain with coughing and increasing shortness of breath. Review of Systems Pulmonary: Dyspnea, Cough Cardiovascular: Palpitations Musculoskeletal: back pain Neurological: Weakness, Incoordination Focused Exam Lactate Level 02/12/22 13:50: Lactic Acid Level 1.24 Objective Exam Last Set of Vital Signs Vital Signs Date Time Temp Pulse Resp B/P (MAP) Pulse Ox O2 Delivery O2 Flow Rate FiO2 02/14/22 17:00 113 22 123/78 94 Nasal Cannula 4.00 02/14/22 12:00 35 02/14/22 11:59 36.5 Capillary Refill : Less Than 3 Seconds I&O Intake and Output 02/14/22 00:00 Intake Total 2820 ml Output Total 850 ml Balance 1970 ml Intake Oral 2770 ml IV Total 50 ml Output Urine Total 850 ml # Voids 3 General: Alert, Moderate Distress Lungs: Other (Diffuse wheezing) Heart: Other (tachycardic rate) Abdomen: Soft Extremities: No Edema, No Tenderness/Swelling Neuro: Normal Speech Results/Procedures Lab Laboratory Tests 02/14/22 05:44: White Blood Count 7.1, Red Blood Count 3.62L, Hemoglobin 11.0L, Hematocrit 34L, Mean Corpuscular Volume 94, Mean Corpuscular Hemoglobin 30, Mean Corpuscular Hemoglobin Concent 32, Red Cell Distribution Width 16.3H, Platelet Count 213, Mean Platelet Volume 10.7, Immature Granulocyte % (Auto) 1, Neutrophils (%) (Auto) 90H, Lymphocytes (%) (Auto) 5L, Monocytes (%) (Auto) 4, Eosinophils (%) (Auto) 0, Basophils (%) (Auto) 0, Neutrophils # (Auto) 6.4, Lymphocytes # (Auto) 0.4L, Monocytes # (Auto) 0.3, Eosinophils # (Auto) 0.0, Basophils # (Auto) 0.0, Immature Granulocyte # (Auto) 0.1, Sodium Level 139, Potassium Level 4.6, Chloride Level 106, Carbon Dioxide Level 19L, Anion Gap 14, Blood Urea Nitrogen 30H, Creatinine 0.95, Estimat Glomerular Filtration Rate 88, BUN/Creatinine Ratio 32, Glucose Level 145H, Calcium Level 9.8, Corrected Calcium 10.0, Total Bilirubin 0.4, Aspartate Amino Transf (AST/SGOT) 54H, Alanine Aminotransferase (ALT/SGPT) 23, Alkaline Phosphatase 83, Total Protein 6.6, Albumin 3.7 02/14/22 12:40: Blood Gas Puncture Site RIGHT RADIAL, Blood Gas Patient Temperature 36.4, Arterial Blood pH 7.40, Arterial Blood Partial Pressure CO2 36, Arterial Blood Partial Pressure O2 50L, Arterial Blood HCO3 22L, Arterial Blood Total CO2 23.1, Arterial Blood Oxygen Saturation 84L, Arterial Blood Base Excess -2.2, Jarad Test POSITIVE, Blood Gas Ventilator Setting NO, Blood Gas Inspired Oxygen 35% 02/14/22 16:58: Glucometer 194H Microbiology 02/12/22 Blood Culture - Preliminary, Resulted No growth Assessment/Plan Assessment/Plan (1) Acute and chronic respiratory failure with hypoxia Status: Acute Assessment & Plan: 02/14: Patient with acute decompensation this AM, RT did 1hr long treatment with minimal improvement and recommend bipap, Patient transferred to ICU, Spoke with patient again regarding code status and patient wishes to be intubated if he needs it. (2) COPD exacerbation Status: Acute Assessment & Plan: - IV steroids/antibiotics, Cefepime, blood cultures pending, MAT protocol 02/14: Likely contaminent in blood culture, continue IV antibiotics (3) PNA (pneumonia) Status: Acute Qualifiers: Qualified Codes: J18.9 - Pneumonia, unspecified organism (4) Abdominal pain Status: Acute Assessment & Plan: - thought to be more from coughing, started on cough medicine and his home pain meds Qualifiers: Qualified Codes: R10.13 - Epigastric pain (5) Rib pain Status: Acute (6) Lower extremity weakness Status: Acute Assessment & Plan: - Will order PT Qualifiers: Qualified Codes: R29.898 - Other symptoms and signs involving the musculosk eletal system (7) HLD (hyperlipidemia) Status: Chronic Assessment & Plan: - Continue home meds (8) HTN (hypertension) Status: Chronic Assessment & Plan: - Holding home bp meds due to normotension and risk of developing sepsis (9) DVT prophylaxis Status: Acute Assessment & Plan: - lovenox Clinical Quality Measures AMI/AHF: ASA po Prior to arrival: JEAN MARIE Bennett MD Feb 14, 2022 18:15
[2022-02-14] MEDS: guaiFENesin (MUCINEX) 600 MG TAB PO SCH (20:45)
[2022-02-14] MEDS: ENOXAPARIN 40 MG/0.4 ML (LOVENOX) SYR SQ SCH (20:45)
[2022-02-14] MEDS: DOCUSATE SODIUM 100 MG (COLACE) CAP PO SCH (21:44)
[2022-02-14 22:04] VITALS: BP 110/72
[2022-02-15] MEDS: CEFEPIME INJECTION 2,000 MG in NS (IVPB) 50 ML IV SCH ×2 (01:27→15:07)
[2022-02-15 02:32] VITALS: BP 129/103
[2022-02-15] MEDS: RT-ALBUTEROL/IPRATROPIUM 3 ML (DUONEB) VIAL INH SCH ×6 (02:32→21:20)
[2022-02-15] MEDS: LORazepam INJ 2 MG/ML (ATIVAN) VIAL IVP PRN ×4 (03:22→20:06)
[2022-02-15] MEDS: PROMETHAZINE/ CODEINE SYRUP 5 ML UDC PO PRN ×3 (03:22→17:29)
[2022-02-15] MEDS: HYDROcodone/APAP 7.5 MG/325 MG (LORTAB, LORCET PLUS) TABLET PO PRN ×2 (03:22→17:29)
[2022-02-15] MEDS: methylPREDNISolone 40 MG/ML (Solu-MEDROL) VIAL IV SCH ×4 (03:22→22:28)
[2022-02-15] MEDS: morphine INJ 4 MG/ML 1 ML (VIAL/SYRINGE) IVP PRN ×6 (03:54→22:33)
[2022-02-15 05:33] LABS: POTASSIUM 4.4 MMOL/L (3.6-5.0)
[2022-02-15 05:34] LABS: CALCIUM 9.9 MG/DL (8.5-10.1)
[2022-02-15 05:38] LABS: CREATININE SERUM 1.07 MG/DL (0.60-1.30)
[2022-02-15 05:41] LABS: MAGNESIUM 2.1 MG/DL (1.6-2.4)
[2022-02-15] MEDS: KCL 20 MEQ TAB (K-DUR) PO SCH (05:41)
[2022-02-15] MEDS: POTASSIUM CL 10MEQ/50ML IVPB 50 ML IV SCH (05:41)
[2022-02-15] MEDS: inSUlin ASPART (NovoLOG) 1 UNIT/0.01 ML (CHARGE PER UNIT) SC SCH ×4 (05:42→20:41)
[2022-02-15 05:56] LABS: BASOPHILS % (AUTO) 0 % (0-10); EOSINOPHILS % (AUTO) 0 % (0-10); HEMATOCRIT 37 % (40-54); HEMOGLOBIN 11.7 g/dL (13.3-17.7); LYMPHOCYTES # (AUTO) 0.3 10^3/uL (1.0-4.0); LYMPHOCYTES % (AUTO) 4 % (12-44); MEAN CORPUSCULAR HEMOGLOBIN 30 pg (25-34); MEAN CORPUSCULAR HGB CONC 32 g/dL (32-36); MEAN CORPUSCULAR VOLUME 95 fL (80-99); MEAN PLATELET VOLUME 10.6 fL (9.0-12.2); MONOCYTES # (AUTO) 0.2 10^3/uL (0.0-1.0); MONOCYTES % (AUTO) 3 % (0-12); NEUTROPHILS # (AUTO) 5.2 10^3/uL (1.8-7.8); NEUTROPHILS % (AUTO) 90 % (42-75); PLATELET COUNT 232 10^3/uL (130-400); WHITE BLOOD COUNT 5.9 10^3/uL (4.3-11.0)
[2022-02-15] MEDS: CATHETER FLUSH 10 ML SYR IV SCH ×3 (06:38→22:28)
[2022-02-15] MEDS: MAGNESIUM 1 GM/100 ML IVPB 100 ML IV SCH (06:38)
[2022-02-15 07:03] VITALS: BP 123/91
--- NOTE | 2022-02-15 07:58 | Physical Therapy Progress Note ---
Therapy Progress Note Patient was transferred to ICU from the medical floor due to medical complications. PT will need new orders to evaluate when appropriate. JENNYFER NAVARRETE PT Feb 15, 2022 07:58
[2022-02-15] MEDS: DOCUSATE SODIUM 100 MG (COLACE) CAP PO SCH ×3 (08:10→20:41)
[2022-02-15] MEDS: guaiFENesin (MUCINEX) 600 MG TAB PO SCH ×2 (08:10→20:06)
[2022-02-15] MEDS: NICOTINE 21 MG (NICODERM) PATCH TD SCH (08:10)
[2022-02-15] MEDS: FUROSEMIDE 40 MG (LASIX) TAB PO SCH (08:11)
[2022-02-15] MEDS: dilTIAZem120 MG (CARDIZEM CD) CAP PO SCH (08:11)
[2022-02-15] MEDS: NICOTINE PATCH REMOVAL TP SCH (08:11)
--- NOTE | 2022-02-15 08:48 | Tele-ICU Progress Note ---
Subjective Date Seen by a Provider: Feb 15, 2022 Time Seen by a Provider: 08:15 Subjective/Events-last exam This virtual visit was conducted using real time audio/video. Thank you for asking us to see this patient for respiratory insufficiency due to AECOPD, posssible pna. PMH: COPD/HOME O2 3 LPM, hl, chf,cad, htn, gerd, rheum arth., prost CA, PAD, CAD. SH: smoking history: current PE: Mild-moderate distress. VSS. O2 sat 90% on3 LPM NC. HEENT: No obvious masses, adenopathy or JVD. Chest: Diminished, with wheezes on auscultation. CV: RRR S1 S2 No murmur or added sounds. Abd: Non-tender. Bowel sounds Y. : Unremarkable. Vanessa N. MEAT SEAFOOD ASSOCIATE/psychiatric: Grossly intact. No obvious focal findings. Extremities: No edema. Capillary refill < 3 seconds. Skin: unremarkable. Results: Decreased Hb 11.7. Elevated BUN 34, BG 138. AB.4/36/50 on 35%.. CXR: hyperinflated w possible bibasilar infilts. CTAC neg for PE. Available chart/ vitals / labs / images reviewed. Video assessment done using teleICU camera, rest of exam as per RN. A/P: Respiratory insufficiency: Continue present management NC/PRN BiPAP, medro l, duonebs Monitor for increasing oxygenation needs and/or need for intubation. Critical Care: critically ill patient. Cont. abx, promise., nicotine patch, Dilt., Lasix. Discussed with CHAYITO Ashton. Asked RN to reach out to eICU if any questions or concerns later. Time spent with patient/coordination of care with other health professionals (mins):30 Sepsis Event Evaluation Height, Weight, BMI Height: '" Weight: lbs. oz. kg; 30.04 BMI Method: Focused Exam Lactate Level 02/12/22 13:50: Lactic Acid Level 1.24 Exam Exam Patient acknowledged, consented, and participated in this virtual visit which was conducted using real time audio/video Vital Signs Date Time Temp Pulse Resp B/P (MAP) Pulse Ox O2 Delivery O2 Flow Rate FiO2 02/15/22 08:00 92 119/75 96 Nasal Cannula 6.00 02/15/22 07:30 Nasal Cannula 6.00 02/15/22 07:30 96 Nasal Cannula 6.00 02/15/22 07:03 89 24 96 35.00 02/15/22 07:00 85 02/15/22 07:00 87 123/91 95 NIV Bilevel 30.00 02/15/22 06:00 79 124/79 94 NIV Bilevel 30.00 02/15/22 05:45 NIV Bilevel 30.00 02/15/22 05:00 89 125/81 97 NIV Bilevel 35.00 02/15/22 04:00 96 103/80 97 NIV Bilevel 35.00 02/15/22 04:00 36.3 02/15/22 04:00 NIV Bilevel 30 02/15/22 03:00 107 146/91 90 NIV Bilevel 35.00 02/15/22 02:32 79 16 95 35.00 02/15/22 02:00 79 121/84 95 NIV Bilevel 35.00 02/15/22 01:00 77 02/15/22 01:00 NIV Bilevel 35.00 02/15/22 01:00 77 108/73 94 NIV Bilevel 35.00 02/15/22 00:16 Nasal Cannula 2.00 02/15/22 00:00 84 111/73 95 NIV Bilevel 30.00 02/15/22 00:00 NIV Bilevel 30 02/15/22 00:00 36.2 02/14/22 23:00 87 90/60 95 NIV Bilevel 30.00 02/14/22 22:04 100 21 95 35.00 02/14/22 22:00 102 110/72 96 NIV Bilevel 30.00 02/14/22 21:45 NIV Bilevel 30.00 02/14/22 21:00 124 22 115/70 90 Nasal Cannula 3.00 02/14/22 20:00 Nasal Cannula 4.00 02/14/22 20:00 36.0 02/14/22 20:00 99 18 108/71 93 Nasal Cannula 3.00 02/14/22 19:27 93 Nasal Cannula 3.00 02/14/22 19:02 Nasal Cannula 3.00 02/14/22 19:00 101 02/14/22 19:00 101 19 105/66 94 Nasal Cannula 3.00 02/14/22 18:00 113 24 127/80 94 Nasal Cannula 4.00 02/14/22 17:00 113 22 123/78 94 Nasal Cannula 4.00 02/14/22 16:00 Nasal Cannula 4.00 02/14/22 16:00 110 23 108/93 96 Nasal Cannula 4.00 02/14/22 15:00 104 21 94/57 93 Nasal Cannula 4.00 02/14/22 14:00 113 28 123/85 96 Nasal Cannula 4.00 02/14/22 13:49 Nasal Cannula 4.00 02/14/22 13:37 97 Nasal Cannula 3.00 02/14/22 13:35 112 35 98 35.00 02/14/22 13:00 105 02/14/22 13:00 104 23 91/64 97 NIV Bilevel 35.00 02/14/22 12:00 NIV Bilevel 35 02/14/22 12:00 109 27 100/76 95 NIV Bilevel 35.00 02/14/22 11:59 36.5 02/14/22 11:00 114 27 108/74 98 NIV Bilevel 35.00 02/14/22 10:30 112 26 105/70 99 NIV Bilevel 35.00 02/14/22 10:15 NIV Bilevel 35.00 02/14/22 10:09 36.4 22 128/76 Nasal Cannula 3.00 02/14/22 10:08 113 I & O 02/15/22 06:59 Intake Total 500 ml Output Total 635 ml Balance -135 ml Height & Weight Height: '" Weight: lbs. oz. kg; 30.04 BMI Method: General Appearance: No Apparent Distress, WD/WN HEENT: PERRL/EOMI, Normal ENT Inspection Neck: Normal Inspection; No JVD Respiratory: No Respiratory Distress, Crackles (Bibasilar), Decreased Breath Sounds, Wheezing Cardiovascular: Regular Rate, Rhythm, No Edema, No Murmur Capillary Refill: Less Than 3 Seconds Gastrointestinal: normal bowel sounds, soft Extremity: Normal Inspection, Non Tender, No Pedal Edema Neurologic/Psychiatric: Alert, Oriented x3, No Motor/Sensory Deficits, Normal Mood/Affect Skin: Normal Color, Warm/Dry Results Lab Laboratory Tests 02/14/22 05:44 02/15/22 04:38 02/15/22 04:58 Assessment/Plan Assessment/Plan See free text. Critical Care: Critically Ill Patient MARGARITA PETTY MD Feb 15, 2022 08:48
--- NOTE | 2022-02-15 09:24 | Progress Note ---
Subjective Subjective/Events-last exam Patient states that he is not feeling any better. The cough is somewhat better. Now having generalize body pain but can not localize pain. Tolerating PO diet when off bipap. Sitting to side of the bed this AM. Review of Systems Pulmonary: Dyspnea, Cough Musculoskeletal: back pain Neurological: Weakness, Incoordination Focused Exam Lactate Level 02/12/22 13:50: Lactic Acid Level 1.24 Objective Exam Last Set of Vital Signs Vital Signs Date Time Temp Pulse Resp B/P (MAP) Pulse Ox O2 Delivery O2 Flow Rate FiO2 02/15/22 09:00 87 20 118/71 93 NIV Bilevel 35.00 02/15/22 04:00 36.3 02/15/22 04:00 30 Capillary Refill : Less Than 3 Seconds I&O Intake and Output 02/15/22 00:00 Intake Total 875 ml Output Total 960 ml Balance -85 ml Intake Oral 875 ml Output Urine Total 960 ml General: Alert, Oriented X3, Moderate Distress Lungs: Other (diffuse wheezing, increased work of breathing at rest.) Heart: Regular Rate, No Murmurs Abdomen: Soft, No Tenderness Extremities: No Edema, No Tenderness/Swelling Results/Procedures Lab Laboratory Tests 02/14/22 12:40: Blood Gas Puncture Site RIGHT RADIAL, Blood Gas Patient Temperature 36.4, Arterial Blood pH 7.40, Arterial Blood Partial Pressure CO2 36, Arterial Blood Partial Pressure O2 50L, Arterial Blood HCO3 22L, Arterial Blood Total CO2 23.1, Arterial Blood Oxygen Saturation 84L, Arterial Blood Base Excess -2.2, Jarad Test POSITIVE, Blood Gas Ventilator Setting NO, Blood Gas Inspired Oxygen 35% 02/14/22 16:58: Glucometer 194H 02/14/22 20:32: Glucometer 199H 02/15/22 04:38: White Blood Count 5.9, Red Blood Count 3.90L, Hemoglobin 11.7L, Hematocrit 37L, Mean Corpuscular Volume 95, Mean Corpuscular Hemoglobin 30, Mean Corpuscular Hemoglobin Concent 32, Red Cell Distribution Width 16.5H, Platelet Count 232, Mean Platelet Volume 10.6, Immature Granulocyte % (Auto) 3, Neutrophils (%) (Auto) 90H, Lymphocytes (%) (Auto) 4L, Monocytes (%) (Auto) 3, Eosinophils (%) (Auto) 0, Basophils (%) (Auto) 0, Neutrophils # (Auto) 5.2, Lymphocytes # (Auto) 0.3L, Monocytes # (Auto) 0.2, Eosinophils # (Auto) 0.0, Basophils # (Auto) 0.0, Immature Granulocyte # (Auto) 0.2H 02/15/22 04:58: Sodium Level 143, Potassium Level 4.4, Chloride Level 106, Carbon Dioxide Level 19L, Anion Gap 18H, Blood Urea Nitrogen 34H, Creatinine 1.07, Estimat Glomerular Filtration Rate 77, BUN/Creatinine Ratio 32, Glucose Level 138H, Calcium Level 9.9, Magnesium Level 2.1 Microbiology 02/12/22 Blood Culture - Preliminary, Resulted No growth Assessment/Plan Assessment/Plan (1) Acute and chronic respiratory failure with hypoxia Status: Acute Assessment & Plan: 02/14: Patient with acute decompensation this AM, RT did 1hr long treatment with minimal improvement and recommend bipap, Patient transferred to ICU, Spoke with patient again regarding code status and patient wishes to be intubated if he needs it. 02/15: Bipap and able to wean to vapotherm to eat and then back on bipap, poor p rognosis, End stage COPD (2) COPD exacerbation Status: Acute Assessment & Plan: - IV steroids/antibiotics, Cefepime, blood cultures pending, MAT protocol 02/14: Likely contaminent in blood culture, continue IV antibiotics (3) PNA (pneumonia) Status: Acute Qualifiers: Qualified Codes: J18.9 - Pneumonia, unspecified organism (4) Abdominal pain Status: Acute Assessment & Plan: - thought to be more from coughing, started on cough medicine and his home pain meds Qualifiers: Qualified Codes: R10.13 - Epigastric pain (5) Rib pain Status: Acute (6) Lower extremity weakness Status: Acute Assessment & Plan: - Will order PT Qualifiers: Qualified Codes: R29.898 - Other symptoms and signs involving the musculoskeletal system (7) HLD (hyperlipidemia) Status: Chronic Assessment & Plan: - Continue home meds (8) HTN (hypertension) Status: Chronic Assessment & Plan: - Holding home bp meds due to normotension and risk of developing sepsis (9) DVT prophylaxis Status: Acute Assessment & Plan: - lovenox Clinical Quality Measures AMI/AHF: ASA po Prior to arrival: JEAN MARIE Bennett MD Feb 15, 2022 09:24
[2022-02-15] MEDS: oxyCODONE ER 10 MG (OxyCONTIN CR) TAB PO SCH ×2 (09:53→20:06)
[2022-02-15] MEDS: polyethylene glycoL POWDER 17 GM (MIRALAX) PACK PO SCH ×2 (09:53→20:06)
[2022-02-15 10:59] VITALS: BP 138/113
[2022-02-15 15:37] VITALS: BP 138/113
[2022-02-15] MEDS: ENOXAPARIN 40 MG/0.4 ML (LOVENOX) SYR SQ SCH (21:00)
[2022-02-15 21:20] VITALS: BP 169/114
[2022-02-16] VITALS (7 sets, daily range): BP systolic 106–162; BP diastolic 64–99
[2022-02-16] MEDS: CEFEPIME INJECTION 2,000 MG in NS (IVPB) 50 ML IV SCH ×2 (02:08→14:35)
[2022-02-16] MEDS: RT-ALBUTEROL/IPRATROPIUM 3 ML (DUONEB) VIAL INH SCH ×6 (03:02→21:28)
[2022-02-16] MEDS: methylPREDNISolone 40 MG/ML (Solu-MEDROL) VIAL IV SCH ×4 (03:46→23:31)
[2022-02-16] MEDS: morphine INJ 4 MG/ML 1 ML (VIAL/SYRINGE) IVP PRN ×6 (04:26→23:32)
[2022-02-16] MEDS: LORazepam INJ 2 MG/ML (ATIVAN) VIAL IVP PRN ×3 (04:26→22:49)
[2022-02-16] MEDS: HYDROcodone/APAP 7.5 MG/325 MG (LORTAB, LORCET PLUS) TABLET PO PRN (05:08)
[2022-02-16] MEDS: PROMETHAZINE/ CODEINE SYRUP 5 ML UDC PO PRN (05:08)
[2022-02-16 05:20] LABS: BASOPHILS % (AUTO) 0 % (0-10); EOSINOPHILS % (AUTO) 0 % (0-10); HEMATOCRIT 37 % (40-54); LYMPHOCYTES # (AUTO) 0.4 10^3/uL (1.0-4.0); LYMPHOCYTES % (AUTO) 6 % (12-44); MEAN CORPUSCULAR HEMOGLOBIN 31 pg (25-34); MEAN CORPUSCULAR HGB CONC 32 g/dL (32-36); MEAN CORPUSCULAR VOLUME 95 fL (80-99); MEAN PLATELET VOLUME 10.9 fL (9.0-12.2); MONOCYTES # (AUTO) 0.3 10^3/uL (0.0-1.0); MONOCYTES % (AUTO) 4 % (0-12); NEUTROPHILS # (AUTO) 6.1 10^3/uL (1.8-7.8); NEUTROPHILS % (AUTO) 86 % (42-75); PLATELET COUNT 250 10^3/uL (130-400); WHITE BLOOD COUNT 7.1 10^3/uL (4.3-11.0)
[2022-02-16 05:32] LABS: POTASSIUM 4.3 MMOL/L (3.6-5.0)
[2022-02-16 05:33] LABS: CALCIUM 9.6 MG/DL (8.5-10.1)
[2022-02-16] MEDS: KCL 20 MEQ TAB (K-DUR) PO SCH (05:35)
[2022-02-16] MEDS: POTASSIUM CL 10MEQ/50ML IVPB 50 ML IV SCH (05:35)
[2022-02-16] MEDS: inSUlin ASPART (NovoLOG) 1 UNIT/0.01 ML (CHARGE PER UNIT) SC SCH ×4 (05:35→22:54)
[2022-02-16 05:37] LABS: CREATININE SERUM 1.47 MG/DL (0.60-1.30)
[2022-02-16 05:40] LABS: MAGNESIUM 2.2 MG/DL (1.6-2.4)
[2022-02-16] MEDS: MAGNESIUM 1 GM/100 ML IVPB 100 ML IV SCH (05:41)
[2022-02-16] MEDS: CATHETER FLUSH 10 ML SYR IV SCH ×3 (06:20→22:55)
[2022-02-16] MEDS: polyethylene glycoL POWDER 17 GM (MIRALAX) PACK PO SCH ×2 (07:43→22:54)
[2022-02-16] MEDS: NICOTINE 21 MG (NICODERM) PATCH TD SCH (07:44)
[2022-02-16] MEDS: NICOTINE PATCH REMOVAL TP SCH (07:44)
[2022-02-16] MEDS: DOCUSATE SODIUM 100 MG (COLACE) CAP PO SCH ×4 (07:45→22:54)
[2022-02-16] MEDS: FUROSEMIDE 40 MG (LASIX) TAB PO SCH (07:45)
[2022-02-16] MEDS: guaiFENesin (MUCINEX) 600 MG TAB PO SCH ×2 (07:45→20:59)
[2022-02-16] MEDS: oxyCODONE ER 10 MG (OxyCONTIN CR) TAB PO SCH ×2 (07:45→21:00)
[2022-02-16] MEDS: dilTIAZem120 MG (CARDIZEM CD) CAP PO SCH (07:45)
[2022-02-16] MEDS: RT-ALBUTEROL/IPRATROPIUM 3 ML (DUONEB) VIAL INH PRN (08:06)
[2022-02-16] MEDS: DexMEDEtomidine 250 ML DRIP 250 ML IV SCH ×2 (08:32→23:32)
--- NOTE | 2022-02-16 09:19 | Progress Note - Hospitalist ---
Subjective HPI/CC On Admission Date Seen by Provider: Feb 16, 2022 Time Seen by Provider: 09:30 Subjective/Events-last exam Patient currently on Precedex and that is helping Maintained on BiPAP Lungs are very distant Reviewed meds and labs Updated partner outside the elevators today Patient likely will require intubation ultimately Poor prognosis given the severity of his end-stage COPD Review of Systems General: Fatigue, Malaise Pulmonary: Dyspnea Objective Exam Vital Signs Vital Signs Date Time Temp Pulse Resp B/P (MAP) Pulse Ox O2 Delivery O2 Flow Rate FiO2 02/16/22 11:00 77 13 103/72 93 NIV Bilevel 35.00 02/16/22 08:15 36.1 02/16/22 07:45 30 Capillary Refill : Less Than 3 Seconds General Appearance: No Apparent Distress, WD/WN, Chronically ill Respiratory: Crackles, Decreased Breath Sounds, Wheezing Cardiovascular: Regular Rate, Rhythm Neurologic/Psychiatric: Alert Results/Procedures Lab Laboratory Tests 02/16/22 04:34 Patient resulted labs reviewed. Assessment/Plan Assessment and Plan Assess & Plan/Chief Complaint Assessment: Acute on chronic respiratory failure requiring BiPAP End-stage COPD but still remains full code and intubation if needed Pneumonia Hypertension Hyperlipidemia Plan: ICU care Precedex BiPAP Critical Care Critically Ill Patient Clinical Quality Measures AMI/AHF: ASA po Prior to arrival: CURTIS Patterson DO Feb 16, 2022 09:19
--- NOTE | 2022-02-16 10:52 | Tele-ICU Progress Note ---
Progress Note video rounds completed 66 y/o male with hypoxemic resp failure on AVAPS Settings: TV 450 Mac 30/Min 7 FIO2 35% PE: comfortable now on precedex Vanessa inserted Pulse: 86 BP" 114/72 PLAN: conitune Non invasive ventilation Focused Exam Height, Weight, BMI Height: '" Weight: lbs. oz. kg; 30.04 BMI Method: Laboratory Tests 02/16/22 04:34 Labs Labs Laboratory Tests 02/15/22 11:49: Glucometer 169H 02/15/22 15:36: Glucometer 190H 02/15/22 20:39: Glucometer 176H 02/16/22 04:34: White Blood Count 7.1, Red Blood Count 3.92L, Hemoglobin 12.0L, Hematocrit 37L, Mean Corpuscular Volume 95, Mean Corpuscular Hemoglobin 31, Mean Corpuscular Hemoglobin Concent 32, Red Cell Distribution Width 16.3H, Platelet Count 250, Mean Platelet Volume 10.9, Immature Granulocyte % (Auto) 4, Neutrophils (%) (A uto) 86H, Lymphocytes (%) (Auto) 6L, Monocytes (%) (Auto) 4, Eosinophils (%) (Auto) 0, Basophils (%) (Auto) 0, Neutrophils # (Auto) 6.1, Lymphocytes # (Auto) 0.4L, Monocytes # (Auto) 0.3, Eosinophils # (Auto) 0.0, Basophils # (Auto) 0.0, Immature Granulocyte # (Auto) 0.3H, Sodium Level 139, Potassium Level 4.3, Chloride Level 103, Carbon Dioxide Level 19L, Anion Gap 17H, Blood Urea Nitrogen 44H, Creatinine 1.47H, Estimat Glomerular Filtration Rate 52, BUN/Creatinine Ratio 30, Glucose Level 140H, Calcium Level 9.6, Magnesium Level 2.2 02/16/22 10:38: Glucometer 172H Microbiology 02/12/22 Blood Culture - Preliminary, Resulted No growth Lab results: Laboratory Tests Test 02/15/22 11:49 02/15/22 15:36 02/15/22 20:39 02/16/22 04:34 Range/Units Glucometer 169 H 190 H 176 H 70-110 MG/DL White Blood Count 7.1 4.3-11.0 10^3/uL Red Blood Count 3.92 L 4.30-5.52 10^6/uL Hemoglobin 12.0 L 13.3-17.7 g/dL Hematocrit 37 L 40-54 % Mean Corpuscular Volume 95 80-99 fL Mean Corpuscular Hemoglobin 31 25-34 pg Mean Corpuscular Hemoglobin Concent 32 32-36 g/dL Red Cell Distribution Width 16.3 H 10.0-14.5 % Platelet Count 250 130-400 10^3/uL Mean Platelet Volume 10.9 9.0-12.2 fL Immature Granulocyte % (Auto) 4 % Neutrophils (%) (Auto) 86 H 42-75 % Lymphocytes (%) (Auto) 6 L 12-44 % Monocytes (%) (Auto) 4 0-12 % Eosinophils (%) (Auto) 0 0-10 % Basophils (%) (Auto) 0 0-10 % Neutrophils # (Auto) 6.1 1.8-7.8 10^3/uL Lymphocytes # (Auto) 0.4 L 1.0-4.0 10^3/uL Monocytes # (Auto) 0.3 0.0-1.0 10^3/uL Eosinophils # (Auto) 0.0 0.0-0.3 10^3/uL Basophils # (Auto) 0.0 0.0-0.1 10^3/uL Immature Granulocyte # (Auto) 0.3 H 0.0-0.1 10^3/uL Sodium Level 139 135-145 MMOL/L Potassium Level 4.3 3.6-5.0 MMOL/L Chloride Level 103 98-107 MMOL/L Carbon Dioxide Level 19 L 21-32 MMOL/L Anion Gap 17 H 5-14 MMOL/L Blood Urea Nitrogen 44 H 7-18 MG/DL Creatinine 1.47 H 0.60-1.30 MG/DL Estimat Glomerular Filtration Rate 52 BUN/Creatinine Ratio 30 Glucose Level 140 H 70-105 MG/DL Calcium Level 9.6 8.5-10.1 MG/DL Magnesium Level 2.2 1.6-2.4 MG/DL Test 02/16/22 10:38 Range/Units Glucometer 172 H 70-110 MG/DL My orders: Orders - GIDEON CAZARES MD Dexmedetomidine 250 Ml Drip (Precedex Dr (02/16/22 08:30) GIDEON CAZARES MD Feb 16, 2022 10:52
[2022-02-16 11:33] LABS: BILIRUBIN,URINE NEGATIVE (NEGATIVE); CLARITY,URINE CLEAR; COLOR,URINE YELLOW; GLUCOSE, URINE (UA) NEGATIVE (NEGATIVE); KETONES,URINE NEGATIVE (NEGATIVE); NITRITE,URINE NEGATIVE (NEGATIVE); PROTEIN,URINE NEGATIVE (NEGATIVE)
[2022-02-16 11:34] LABS: BACTERIA,URINE NEGATIVE /HPF; LEUKOCYTE ESTERASE ,URINE NEGATIVE (NEGATIVE)
[2022-02-16] MEDS: ENOXAPARIN 40 MG/0.4 ML (LOVENOX) SYR SQ SCH (20:59)
[2022-02-17 00:49] LABS: ABG BASE EXCESS -1.3 MMOL/L (-2.5-2.5); ABG OXYGEN SATURATION 91 % (94-100); ABG PCO2 42 MMHG (35-45); ABG PH 7.36 (7.37-7.43); ABG PO2 58 MMHG (79-93)
[2022-02-17 00:51] LABS: ALLENS TEST YES-POS; INSPIRED O2 50%; PATIENT TEMP 35.5; VENTILATOR NO
[2022-02-17] MEDS: CEFEPIME INJECTION 2,000 MG in NS (IVPB) 50 ML IV SCH (02:26)
[2022-02-17 02:29] VITALS: BP 133/90
[2022-02-17] MEDS: RT-ALBUTEROL/IPRATROPIUM 3 ML (DUONEB) VIAL INH SCH ×6 (02:29→21:59)
[2022-02-17 03:59] LABS: ABG BASE EXCESS -0.6 MMOL/L (-2.5-2.5); ABG OXYGEN SATURATION 92 % (94-100); ABG PCO2 39 MMHG (35-45); ABG PO2 62 MMHG (79-93); ABG TCO2 25.1 MMOL/L (21.0-31.0)
[2022-02-17 04:00] LABS: ALLENS TEST YES-POS; INSPIRED O2 50%; PATIENT TEMP 35.5; VENTILATOR NO
[2022-02-17] MEDS: methylPREDNISolone 40 MG/ML (Solu-MEDROL) VIAL IV SCH ×4 (04:30→21:08)
[2022-02-17] MEDS: morphine INJ 4 MG/ML 1 ML (VIAL/SYRINGE) IVP PRN ×2 (04:53→10:59)
[2022-02-17 05:04] LABS: BASOPHILS % (AUTO) 0 % (0-10); EOSINOPHILS % (AUTO) 0 % (0-10); HEMATOCRIT 39 % (40-54); HEMOGLOBIN 12.6 g/dL (13.3-17.7); LYMPHOCYTES # (AUTO) 0.2 10^3/uL (1.0-4.0); LYMPHOCYTES % (AUTO) 6 % (12-44); MEAN CORPUSCULAR HEMOGLOBIN 30 pg (25-34); MEAN CORPUSCULAR HGB CONC 32 g/dL (32-36); MEAN CORPUSCULAR VOLUME 94 fL (80-99); MEAN PLATELET VOLUME 10.8 fL (9.0-12.2); MONOCYTES # (AUTO) 0.2 10^3/uL (0.0-1.0); MONOCYTES % (AUTO) 4 % (0-12); NEUTROPHILS # (AUTO) 3.7 10^3/uL (1.8-7.8); NEUTROPHILS % (AUTO) 87 % (42-75); PLATELET COUNT 218 10^3/uL (130-400); WHITE BLOOD COUNT 4.3 10^3/uL (4.3-11.0)
[2022-02-17 05:18] LABS: CALCIUM 9.1 MG/DL (8.5-10.1)
[2022-02-17 05:23] LABS: CREATININE SERUM 0.95 MG/DL (0.60-1.30)
[2022-02-17 05:25] LABS: MAGNESIUM 2.4 MG/DL (1.6-2.4)
[2022-02-17 05:29] LABS: BAND NEUTROPHILS 3 %; LYMPHOCYTES % (MANUAL) 5 %; MONOCYTES % (MANUAL) 4 %; NEUTROPHILS % (MANUAL) 88 %; RBC MORPH NORMAL
[2022-02-17] MEDS: CATHETER FLUSH 10 ML SYR IV SCH ×3 (06:02→21:08)
[2022-02-17] MEDS: inSUlin ASPART (NovoLOG) 1 UNIT/0.01 ML (CHARGE PER UNIT) SC SCH ×3 (06:03→18:19)
[2022-02-17] MEDS: POTASSIUM CL 10MEQ/50ML IVPB 50 ML IV SCH (06:03)
[2022-02-17] MEDS: MAGNESIUM 1 GM/100 ML IVPB 100 ML IV SCH (06:03)
[2022-02-17] MEDS: KCL 20 MEQ TAB (K-DUR) PO SCH (06:03)
--- NOTE | 2022-02-17 06:28 | Progress Note - Hospitalist ---
Subjective HPI/CC On Admission Date Seen by Provider: February 17, 2022 Time Seen by Provider: 11:30 Subjective/Events-last exam Patient worse Maintained on BiPAP but he appears to be cyanotic Will intubate Updated patient and family Poor prognosis overall given the severity of his COPD He has been intubated several times before he reports Reviewed meds and labs Review of Systems General: Fatigue, Malaise Pulmonary: Dyspnea Objective Exam Vital Signs Vital Signs Date Time Temp Pulse Resp B/P (MAP) Pulse Ox O2 Delivery O2 Flow Rate FiO2 02/18/22 05:13 163/96 02/18/22 05:12 85 02/18/22 04:00 94 Mechanical Ventilator 50 02/18/22 04:00 37.3 02/18/22 02:36 17 02/17/22 23:00 55.00 Capillary Refill : Less Than 3 Seconds General Appearance: Anxious, Chronically ill, Moderate Distress Respiratory: Decreased Breath Sounds Cardiovascular: Regular Rate, Rhythm Neurologic/Psychiatric: Alert, Oriented x3 Results/Procedures Lab Laboratory Tests 02/18/22 03:45 Patient resulted labs reviewed. Assessment/Plan Assessment and Plan Assess & Plan/Chief Complaint Assessment: Acute on chronic respiratory failure requiring BiPAP but failed and intubated on 02/17/2022 End-stage COPD but still remains full code and intubation if needed per patient request Pneumonia Hypertension Hyperlipidemia Plan: ICU care Precedex BiPAP 02/17/2022: Intubated Appreciate eICU Critical Care Critically Ill Patient Clinical Quality Measures AMI/AHF: ASA po Prior to arrival: CURTIS Patterson DO February 17, 2022 06:28
[2022-02-17] MEDS: DexMEDEtomidine 250 ML DRIP 250 ML IV SCH ×2 (07:00→21:12)
[2022-02-17] MEDS: LORazepam INJ 2 MG/ML (ATIVAN) VIAL IVP PRN (07:44)
--- NOTE | 2022-02-17 10:49 | Tele-ICU Progress Note ---
Subjective Date Seen by a Provider: February 17, 2022 Time Seen by a Provider: 10:00 Subjective/Events-last exam This virtual visit was conducted using real time audio/video. Thank you for asking us to see this patient for respiratory insufficiency due to AECOPD, posssible pna. PE: no distress despite BiPAP need. VSS. O2 sat 92% on BiPAP 15/8, 50%. HEENT: No obvious masses, adenopathy or JVD. Chest: Diminished, with wheezes on auscultation. CV: RRR S1 S2 No murmur or added sounds. Abd: Non-tender. Bowel sounds Y. : Unremarkable. 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 No obvious focal findings. Extremities: No edema. Capillary refill < 3 seconds. Skin: unremarkable. Results: Decreased Hb 12.6. Elevated BUN 34, BG 138. AB.4/36/50 on 35%.. CXR: hyperinflated w possible bibasilar infilts. CTAC neg for PE. AB.4/39/62 on 50%. Available chart/ vitals / labs / images reviewed. Video assessment done using teleICU camera, rest of exam as per RN. A/P: Respiratory insufficiency: Continue present management with NC, PRN BiPAP, medrol, duonebs, prec. Monitor for increasing oxygenation needs and/or need for intubation. Critical Care: critically ill patient. Cont. promise., nicotine patch, Dilt., Lasix, SSI. Discussed with CHAYITO Ashton. Asked RN to reach out to eICU if any questions or co ncerns later. Time spent with patient/coordination of care with other health professionals (mins):30 Sepsis Event Evaluation Height, Weight, BMI Height: '" Weight: lbs. oz. kg; 30.04 BMI Method: Exam Exam Patient acknowledged, consented, and participated in this virtual visit which was conducted using real time audio/video Vital Signs Date Time Temp Pulse Resp B/P (MAP) Pulse Ox O2 Delivery O2 Flow Rate FiO2 02/17/22 10:00 72 20 132/80 94 NIV Bilevel 50.00 02/17/22 09:00 72 15 137/86 92 NIV Bilevel 50.00 02/17/22 08:00 73 16 131/84 93 NIV Bilevel 50.00 02/17/22 07:58 36.5 02/17/22 07:40 93 NIV Bilevel 50 02/17/22 07:02 70 21 92 50.00 02/17/22 07:00 68 13 130/90 92 NIV Bilevel 50.00 02/17/22 07:00 70 02/17/22 07:00 69 120/83 02/17/22 06:00 70 17 126/93 94 NIV Bilevel 50.00 02/17/22 05:00 73 16 129/96 95 NIV Bilevel 50.00 02/17/22 04:00 71 15 145/88 94 NIV Bilevel 50.00 02/17/22 04:00 93 NIV Bilevel 50 02/17/22 03:00 71 15 131/94 92 NIV Bilevel 50.00 02/17/22 02:29 72 23 91 50.00 02/17/22 02:00 70 15 136/90 92 NIV Bilevel 50.00 02/17/22 01:00 71 02/17/22 01:00 71 17 133/91 94 NIV Bilevel 50.00 02/17/22 00:00 93 NIV Bilevel 50 02/17/22 00:00 72 17 128/76 91 NIV Bilevel 50.00 02/16/22 23:32 76 125/82 02/16/22 23:00 74 18 125/93 93 NIV Bilevel 50.00 02/16/22 22:00 75 17 135/86 95 NIV Bilevel 50.00 02/16/22 21:28 76 22 92 50.00 02/16/22 21:00 77 18 125/82 97 NIV Bilevel 50.00 02/16/22 20:00 76 18 125/79 93 NIV Bilevel 50.00 02/16/22 20:00 93 NIV Bilevel 40 02/16/22 20:00 35.9 NIV Bilevel 50.00 02/16/22 19:04 83 34 92 30.00 02/16/22 19:00 74 25 127/80 93 NIV Bilevel 35.00 02/16/22 19:00 80 02/16/22 18:00 77 17 117/79 91 NIV Bilevel 35.00 02/16/22 17:00 75 17 104/64 93 NIV Bilevel 35.00 02/16/22 16:13 93 NIV Bilevel 40 02/16/22 16:00 76 16 107/71 92 NIV Bilevel 35.00 02/16/22 15:00 78 18 122/79 97 NIV Bilevel 35.00 02/16/22 14:21 75 17 92 30.00 02/16/22 14:00 78 32 119/81 91 NIV Bilevel 35.00 02/16/22 13:00 78 109/72 92 NIV Bilevel 35.00 02/16/22 12:44 80 02/16/22 12:11 93 NIV Bilevel 35 02/16/22 12:00 77 13 114/74 93 NIV Bilevel 35.00 02/16/22 11:46 36.3 02/16/22 11:00 77 13 103/72 93 NIV Bilevel 35.00 02/16/22 11:00 NIV Bilevel 35.00 I & O 02/17/22 07:00 Intake Total 375 ml Output Total 2575 ml Balance -2200 ml Height & Weight Height: '" Weight: lbs. oz. kg; 30.04 BMI Method: General Appearance: No Apparent Distress, WD/WN, Chronically ill HEENT: PERRL/EOMI, Normal ENT Inspection Neck: Normal Inspection; No JVD Respiratory: Crackles, Decreased Breath Sounds, Wheezing Cardiovascular: Regular Rate, Rhythm Capillary Refill: Less Than 3 Seconds Gastrointestinal: normal bowel sounds, soft Extremity: Normal Inspection, Non Tender, No Pedal Edema Neurologic/Psychiatric: Alert Skin: Normal Color, Warm/Dry Results Lab Laboratory Tests 02/16/22 04:34 02/17/22 04:12 Assessment/Plan Assessment/Plan See free text. Critical Care: Critically Ill Patient MARGARITA PETTY MD February 17, 2022 10:49
[2022-02-17] MEDS: NICOTINE PATCH REMOVAL TP SCH (10:56)
[2022-02-17] MEDS: NICOTINE 21 MG (NICODERM) PATCH TD SCH (10:57)
[2022-02-17] MEDS: FUROSEMIDE 40 MG (LASIX) TAB PO SCH (11:07)
[2022-02-17] MEDS: dilTIAZem120 MG (CARDIZEM CD) CAP PO SCH (11:07)
[2022-02-17] MEDS: DOCUSATE SODIUM 100 MG (COLACE) CAP PO SCH ×3 (11:07→20:50)
[2022-02-17] MEDS: guaiFENesin (MUCINEX) 600 MG TAB PO SCH ×2 (11:07→20:49)
[2022-02-17] MEDS: polyethylene glycoL POWDER 17 GM (MIRALAX) PACK PO SCH ×2 (11:07→20:48)
[2022-02-17] MEDS: oxyCODONE ER 10 MG (OxyCONTIN CR) TAB PO SCH ×2 (11:08→20:58)
[2022-02-17 11:10] VITALS: BP 137/95
[2022-02-17] MEDS ORDERED: fentaNYL DRIP PRE-MIX 250 ML IV ONE (12:19)
[2022-02-17] MEDS ORDERED: PROPOFOL DRIP (ICU) 100 ML IV ONE (12:19)
[2022-02-17] MEDS ORDERED: NS IV 1000 ML 1,000 ML ONE ×2 (12:24→12:29)
[2022-02-17] MEDS ORDERED: HALOPERIDOL 5 MG/ML (HALDOL) VIAL IV PRN (12:30)
[2022-02-17] MEDS ORDERED: DexMEDEtomidine 250 ML DRIP 250 ML IV SCH (12:30)
[2022-02-17] MEDS ORDERED: LORazepam/NS DRIP 100 ML IV SCH (12:30)
[2022-02-17 12:34] VITALS: BP 141/104
--- NOTE | 2022-02-17 13:04 | Diagnostic Imaging Report ---
Indication: Dyspnea. Comparison: 02/13/2022. Discussion: 2 frontal views of the chest were obtained. New intubation with endotracheal tube in good position within the mid trachea. Stable heart size. Bilateral mixed interstitial and alveolar infiltrates are new, likely pneumonia or edema. Infiltrates are greatest within the right lung. No pleural fluid or pneumothorax. No osseous abnormality. Enteric tube is also new with tip in the gastric body. Impression: 1. New severe pulmonary infiltrates, likely pneumonia or edema. 2. Endotracheal tube in good position. Dictated by: Dictated on workstation # [id number]
--- NOTE | 2022-02-17 13:08 | Anesthesia-Procedure Note ---
Procedures/Interventions Procedure Start/Stop/Diagnosis Date of Procedure: February 17, 2022 Start Time: 12:30 Referring Physician: Catalina Stop Time: 12:58 Intubation Reason Intubation/Diagnosis: Resp Failure RSI: No 100% pre-Ox, [id number]: Yes Intubation Method: orotracheal Videoscope used: Yes Grade View: 1 Medications: Propofol (100), Rocuronium (50), Succinylcholine (100) Mask Ventilation: positive Positive End Tide CO2: Yes Breath Sounds after Intubation: bilateral-equal ETT Securred @ (cm): 24 Intubated with ease: Yes Intubation Complications: no complications Post Intubation Xray-done: Yes Progress/Xray Impression: Deep, removed to 23 cm Care turned over to: ICU staff and RT Arterial Line Arterial Line Catheter: 20G (Ultrasound guided. ) Type: Radial Location: Right Procedure: prepped, draped in sterile fashion, good wave-form was obtained, patient tolerated procedure well, no immediate complications, post procedure area cleaned, post procedure dressing applied RUBY ROSS CRNA February 17, 2022 13:08
[2022-02-17 13:51] LABS: ABG BASE EXCESS -1.5 MMOL/L (-2.5-2.5); ABG OXYGEN SATURATION 91 % (94-100); ABG PCO2 46 MMHG (35-45); ABG PO2 60 MMHG (79-93); ABG TCO2 25.3 MMOL/L (21.0-31.0)
[2022-02-17 13:52] LABS: ALLENS TEST YES-POS; INSPIRED O2 60%; PATIENT TEMP 35.8; VENTILATOR YES
[2022-02-17 13:53] LABS: ABG PH 7.33 (7.37-7.43)
[2022-02-17] MEDS: PROPOFOL DRIP (ICU) 100 ML IV SCH ×3 (13:53→21:11)
[2022-02-17] MEDS: fentaNYL DRIP PRE-MIX 250 ML IV SCH (13:54)
[2022-02-17 14:08] VITALS: BP 133/85
[2022-02-17] MEDS ORDERED: SUCCINYLCHOLINE INJ 100 MG/5 ML SYR/VIAL INJ ONE (15:46)
[2022-02-17] MEDS ORDERED: proPOfol 200 MG/20 ML (DIPRIVAN) VIAL IV ONE (15:46)
[2022-02-17] MEDS ORDERED: ROCURONIUM 50 MG/5 ML (ZEMURON) VIAL IV ONE (15:46)
[2022-02-17 18:49] VITALS: BP 141/82
[2022-02-17] MEDS: ENOXAPARIN 40 MG/0.4 ML (LOVENOX) SYR SQ SCH (20:50)
[2022-02-17 21:59] VITALS: BP 157/83
[2022-02-18] MEDS: inSUlin ASPART (NovoLOG) 1 UNIT/0.01 ML (CHARGE PER UNIT) SC SCH ×5 (00:41→23:16)
[2022-02-18] MEDS: PROPOFOL DRIP (ICU) 100 ML IV SCH ×7 (01:09→22:57)
[2022-02-18 02:36] VITALS: BP 161/81
[2022-02-18] MEDS: RT-ALBUTEROL/IPRATROPIUM 3 ML (DUONEB) VIAL INH SCH ×6 (02:36→22:07)
[2022-02-18 03:57] LABS: ABG BASE EXCESS -1.5 MMOL/L (-2.5-2.5); ABG OXYGEN SATURATION 95 % (94-100); ABG PCO2 34 MMHG (35-45); ABG PH 7.43 (7.37-7.43); ABG PO2 73 MMHG (79-93); ABG TCO2 23.4 MMOL/L (21.0-31.0)
[2022-02-18 03:58] LABS: ALLENS TEST ART LINE; BASOPHILS % (AUTO) 0 % (0-10); EOSINOPHILS % (AUTO) 0 % (0-10); HEMATOCRIT 38 % (40-54); HEMOGLOBIN 12.5 g/dL (13.3-17.7); INSPIRED O2 50%; LYMPHOCYTES # (AUTO) 0.1 10^3/uL (1.0-4.0); LYMPHOCYTES % (AUTO) 3 % (12-44); MEAN CORPUSCULAR HEMOGLOBIN 31 pg (25-34); MEAN CORPUSCULAR HGB CONC 33 g/dL (32-36); MEAN CORPUSCULAR VOLUME 94 fL (80-99); MEAN PLATELET VOLUME 10.3 fL (9.0-12.2); MONOCYTES # (AUTO) 0.3 10^3/uL (0.0-1.0); MONOCYTES % (AUTO) 5 % (0-12); NEUTROPHILS # (AUTO) 4.8 10^3/uL (1.8-7.8); NEUTROPHILS % (AUTO) 86 % (42-75); PATIENT TEMP 36.6; PLATELET COUNT 228 10^3/uL (130-400); VENTILATOR YES; WHITE BLOOD COUNT 5.6 10^3/uL (4.3-11.0)
[2022-02-18 04:08] LABS: POTASSIUM 3.9 MMOL/L (3.6-5.0)
[2022-02-18 04:09] LABS: CALCIUM 8.6 MG/DL (8.5-10.1)
[2022-02-18 04:13] LABS: CREATININE SERUM 0.81 MG/DL (0.60-1.30)
[2022-02-18 04:15] LABS: MAGNESIUM 2.5 MG/DL (1.6-2.4)
[2022-02-18] MEDS: methylPREDNISolone 40 MG/ML (Solu-MEDROL) VIAL IV SCH ×4 (04:31→21:13)
[2022-02-18] MEDS: DexMEDEtomidine 250 ML DRIP 250 ML IV SCH ×3 (05:12→20:01)
--- NOTE | 2022-02-18 06:18 | Progress Note - Hospitalist ---
Subjective HPI/CC On Admission Date Seen by Provider: February 18, 2022 Time Seen by Provider: 10:00 Subjective/Events-last exam Patient still intubated Likely will be long-term and possible trach placement requirement Updated at bedside Reviewed meds and labs Objective Exam Vital Signs Vital Signs Date Time Temp Pulse Resp B/P (MAP) Pulse Ox O2 Delivery O2 Flow Rate FiO2 02/18/22 11:00 82 9 94 Mechanical Ventilator 50.00 02/18/22 10:09 50 02/18/22 08:00 36.9 Capillary Refill : Less Than 3 Seconds General Appearance: No Apparent Distress, WD/WN, Chronically ill, Other (Sedated and intubated) Respiratory: No Accessory Muscle Use, No Respiratory Distress, Decreased Breath Sounds Results/Procedures Lab Laboratory Tests 02/18/22 03:45 Patient resulted labs reviewed. Assessment/Plan Assessment and Plan Assess & Plan/Chief Complaint Assessment: Acute on chronic respiratory failure requiring BiPAP but failed and intubated on 02/17/2022 End-stage COPD but still remains full code and intubation if needed per patient request Pneumonia Hypertension Hyperlipidemia Plan: ICU care Precedex BiPAP 02/17/2022: Intubated Appreciate eICU 02/18/2022: Supportive care Maintain intubation Critical Care Critically Ill Patient Clinical Quality Measures AMI/AHF: ASA po Prior to arrival: CURTIS Patterson DO February 18, 2022 06:18
[2022-02-18] MEDS: CATHETER FLUSH 10 ML SYR IV SCH ×3 (06:25→22:56)
--- NOTE | 2022-02-18 06:45 | Occ Therapy Progress Note ---
Therapy Progress Note OT orders received. Pt is currently intubated. OT will monitor pt's status and will initiate treatment when pt is medically stable and able to actively participate in skilled therapy. TI OCAMPO February 18, 2022 06:45
[2022-02-18] MEDS: MAGNESIUM 1 GM/100 ML IVPB 100 ML IV SCH (06:54)
[2022-02-18] MEDS: POTASSIUM CL 10MEQ/50ML IVPB 50 ML IV SCH (06:54)
[2022-02-18] MEDS: KCL 20 MEQ TAB (K-DUR) PO SCH (06:55)
[2022-02-18 06:58] VITALS: BP 157/84
--- NOTE | 2022-02-18 07:36 | Physical Therapy Progress Note ---
Therapy Progress Note Patient currently sedated and intubated. PT will continue to monitor patient status and initiate treatment when patient is able to actively participate with skilled therapy. DOUGLAS WILEY PT February 18, 2022 07:36
[2022-02-18] MEDS: polyethylene glycoL POWDER 17 GM (MIRALAX) PACK PO SCH ×2 (07:38→20:02)
--- NOTE | 2022-02-18 07:47 | Diagnostic Imaging Report ---
EXAMINATION: Chest 1 view HISTORY: Intubation COMPARISON: 02/17/2022 FINDINGS: Endotracheal tube tip terminates 2 cm above the camille. Gastric tube terminates in body of stomach. There are extensive bilateral interstitial and airspace opacities. No pneumothorax. Heart size is normal. IMPRESSION: 1. Stable extensive bilateral interstitial and airspace opacities concerning for pneumonia. Dictated by: Dictated on workstation # [id number]
[2022-02-18] MEDS: NICOTINE 21 MG (NICODERM) PATCH TD SCH (08:21)
[2022-02-18] MEDS: PANTOPRAZOLE 40 MG (PROTONIX) VIAL IV SCH (08:21)
[2022-02-18] MEDS: NICOTINE PATCH REMOVAL TP SCH (08:21)
[2022-02-18] MEDS: guaiFENesin (MUCINEX) 600 MG TAB PO SCH ×2 (08:22→20:02)
[2022-02-18] MEDS: dilTIAZem120 MG (CARDIZEM CD) CAP PO SCH (08:22)
[2022-02-18] MEDS: DOCUSATE SODIUM 100 MG (COLACE) CAP PO SCH ×2 (08:22→20:03)
[2022-02-18] MEDS: FUROSEMIDE 40 MG (LASIX) TAB PO SCH (08:22)
[2022-02-18] MEDS: oxyCODONE ER 10 MG (OxyCONTIN CR) TAB PO SCH ×2 (08:23→20:03)
--- NOTE | 2022-02-18 09:22 | Tele-ICU Progress Note ---
Subjective Date Seen by a Provider: February 18, 2022 Time Seen by a Provider: 08:45 Subjective/Events-last exam This virtual visit was conducted using real time audio/video. Thank you for asking us to see this patient for respiratory insufficiency due to AECOPD, posssible pna. Pt intubated 02/18/2020 at approx 12:30 PM. PE: sedated on vent. VSS. O2 sat 94% on vent 50%/+8. HEENT: No obvious masses, adenopathy or JVD. Chest: Diminished breath sounds. CV: RRR S1 S2 No murmur or added sounds. Abd: Non-tender. Bowel sounds Y. : Unremarkable. Vanessa Y. 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 No obvious focal findings. Extremities: No edema. Capillary refill < 3 seconds. Skin: unremarkable. Results: Decreased Hb 8.1. Elevated BUN 35, BG 160. AB.4// on 50%/+8%.. CXR: hyperinflated w bibasilar infilts R>L. CTAC neg for PE. AB.4// on 50%. Available chart/ vitals / labs / images reviewed. Video assessment done using teleICU camera, rest of exam as per RN. A/P: Respiratory insufficiency: Continue present management with vent, medrol, duonebs, prec. No SBT currently. Monitor for increasing oxygenation needs. Critical Care: critically ill patient. Cont. promise., Dilt.,abx, SSI. Discussed with RN SAMANTHA. Asked RN to reach out to eICU if any questions or concerns later. Time spent with patient/coordination of care with other health professionals (mins):30 Sepsis Event Evaluation Height, Weight, BMI Height: '" Weight: lbs. oz. kg; 30.04 BMI Method: Exam Exam Patient acknowledged, consented, and participated in this virtual visit which was conducted using real time audio/video Vital Signs Date Time Temp Pulse Resp B/P (MAP) Pulse Ox O2 Delivery O2 Flow Rate FiO2 02/18/22 09:00 82 15 94 Mechanical Ventilator 50.00 02/18/22 08:56 85 157/84 02/18/22 08:00 36.9 02/18/22 08:00 85 18 94 Mechanical Ventilator 50.00 02/18/22 08:00 94 Mechanical Ventilator 50 02/18/22 07:00 85 10 94 Mechanical Ventilator 50.00 02/18/22 07:00 Mechanical Ventilator 50.00 02/18/22 07:00 85 02/18/22 06:58 84 17 94 50 02/18/22 06:00 84 15 94 Mechanical Ventilator 55.00 02/18/22 05:13 163/96 02/18/22 05:12 85 02/18/22 05:00 85 15 94 Mechanical Ventilator 55.00 02/18/22 04:00 94 Mechanical Ventilator 50 02/18/22 04:00 37.3 02/18/22 04:00 84 15 93 Mechanical Ventilator 55.00 02/18/22 03:00 84 16 93 Mechanical Ventilator 55.00 02/18/22 02:36 80 17 93 50 02/18/22 02:00 78 15 94 Mechanical Ventilator 55.00 02/18/22 01:09 157/83 02/18/22 01:00 80 02/18/22 01:00 79 16 94 Mechanical Ventilator 55.00 02/18/22 00:00 36.6 02/18/22 00:00 94 Mechanical Ventilator 55 02/18/22 00:00 79 16 95 Mechanical Ventilator 55.00 02/17/22 23:00 79 16 94 Mechanical Ventilator 55.00 02/17/22 22:00 Mechanical Ventilator 55.00 02/17/22 22:00 76 16 95 Mechanical Ventilator 55.00 02/17/22 21:59 76 17 94 55 02/17/22 21:12 76 164/85 02/17/22 21:11 77 166/86 02/17/22 21:00 76 14 95 Mechanical Ventilator 60.00 02/17/22 20:00 76 15 95 Mechanical Ventilator 60.00 02/17/22 20:00 36.4 02/17/22 20:00 94 Mechanical Ventilator 60 02/17/22 19:00 74 15 95 Mechanical Ventilator 60.00 02/17/22 19:00 80 02/17/22 18:49 75 16 94 60 02/17/22 18:00 74 20 94 Mechanical Ventilator 60.00 02/17/22 17:00 73 16 93 Mechanical Ventilator 60.00 02/17/22 16:39 73 150/87 02/17/22 16:00 73 16 93 Mechanical Ventilator 60.00 02/17/22 16:00 94 Mechanical Ventilator 60 02/17/22 15:00 70 16 93 Mechanical Ventilator 60.00 02/17/22 14:08 67 16 94 60 02/17/22 14:00 70 16 91 Mechanical Ventilator 60.00 02/17/22 13:53 72 141/91 02/17/22 13:00 74 02/17/22 13:00 72 16 91 Mechanical Ventilator 100.00 02/17/22 12:34 71 16 99 100 02/17/22 12:00 93 NIV Bilevel 50 02/17/22 12:00 73 17 151/96 95 NIV Bilevel 50.00 02/17/22 11:56 36.0 02/17/22 11:10 71 20 94 50.00 02/17/22 11:00 71 14 136/92 94 NIV Bilevel 50.00 02/17/22 10:00 72 20 132/80 94 NIV Bilevel 50.00 I & O 02/18/22 07:00 Intake Total 850 ml Output Total 2445 ml Balance -1595 ml Height & Weight Height: '" Weight: lbs. oz. kg; 30.04 BMI Method: General Appearance: Anxious, Chronically ill, Moderate Distress HEENT: PERRL/EOMI, Normal ENT Inspection Neck: Normal Inspection; No JVD Respiratory: Decreased Breath Sounds Cardiovascular: Regular Rate, Rhythm Capillary Refill: Less Than 3 Seconds Gastrointestinal: normal bowel sounds, soft Extremity: Normal Inspection, Non Tender, No Pedal Edema Neurologic/Psychiatric: Alert, Oriented x3 Skin: Normal Color, Warm/Dry Results Lab Laboratory Tests 02/17/22 04:12 02/18/22 03:45 Assessment/Plan Assessment/Plan See free text. Critical Care: Ventilator Management MARGARITA PETTY MD February 18, 2022 09:22
[2022-02-18 10:09] VITALS: BP 154/77
[2022-02-18] MEDS: fentaNYL DRIP PRE-MIX 250 ML IV SCH ×3 (10:53→20:02)
--- NOTE | 2022-02-18 13:47 | Occ Therapy Progress Note ---
Therapy Progress Note Per nrsg report, pt is expected to be intubated for extended time and is a critically ill pt. OT to discharge pt at this time. Pt will need new orders when medically stable and able to actively participate in skilled therapy. TI OCAMPO February 18, 2022 13:47
--- NOTE | 2022-02-18 14:00 | Physical Therapy Progress Note ---
Therapy Progress Note Per RN report, pt is expected to be intubated for extended time and is a critically ill pt. PT to discharge pt at this time. Pt will need new orders when medically stable and able to actively participate in skilled therapy. DOUGLAS WILEY PT February 18, 2022 14:00
[2022-02-18 14:50] VITALS: BP 157/87
[2022-02-18 18:52] VITALS: BP 156/87
[2022-02-18] MEDS: ENOXAPARIN 40 MG/0.4 ML (LOVENOX) SYR SQ SCH (20:02)
[2022-02-18 22:07] VITALS: BP 171/84
[2022-02-19] MEDS: fentaNYL DRIP PRE-MIX 250 ML IV SCH ×6 (02:05→22:10)
[2022-02-19] MEDS: PROPOFOL DRIP (ICU) 100 ML IV SCH ×6 (02:06→20:46)
[2022-02-19 02:34] VITALS: BP 159/81
[2022-02-19] MEDS: RT-ALBUTEROL/IPRATROPIUM 3 ML (DUONEB) VIAL INH SCH ×6 (02:34→22:19)
[2022-02-19] MEDS: DexMEDEtomidine 250 ML DRIP 250 ML IV SCH ×3 (02:40→18:19)
[2022-02-19] MEDS: methylPREDNISolone 40 MG/ML (Solu-MEDROL) VIAL IV SCH ×4 (03:18→22:13)
[2022-02-19 04:41] LABS: ABG BASE EXCESS -1.5 MMOL/L (-2.5-2.5); ABG OXYGEN SATURATION 96 % (94-100); ABG PCO2 38 MMHG (35-45); ABG PO2 79 MMHG (79-93); ABG TCO2 23.6 MMOL/L (21.0-31.0); ALLENS TEST YES-POS; INSPIRED O2 50%; PATIENT TEMP 37.8; VENTILATOR YES
--- NOTE | 2022-02-19 05:23 | Progress Note - Hospitalist ---
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
[2022-02-19 06:03] LABS: BASOPHILS % (AUTO) 0 % (0-10); EOSINOPHILS % (AUTO) 0 % (0-10); HEMATOCRIT 38 % (40-54); HEMOGLOBIN 12.4 g/dL (13.3-17.7); LYMPHOCYTES # (AUTO) 0.2 10^3/uL (1.0-4.0); LYMPHOCYTES % (AUTO) 2 % (12-44); MEAN CORPUSCULAR HEMOGLOBIN 31 pg (25-34); MEAN CORPUSCULAR HGB CONC 33 g/dL (32-36); MEAN CORPUSCULAR VOLUME 96 fL (80-99); MEAN PLATELET VOLUME 10.8 fL (9.0-12.2); MONOCYTES # (AUTO) 0.3 10^3/uL (0.0-1.0); MONOCYTES % (AUTO) 5 % (0-12); NEUTROPHILS # (AUTO) 5.3 10^3/uL (1.8-7.8); NEUTROPHILS % (AUTO) 84 % (42-75); PLATELET COUNT 215 10^3/uL (130-400); WHITE BLOOD COUNT 6.2 10^3/uL (4.3-11.0)
[2022-02-19] MEDS: CATHETER FLUSH 10 ML SYR IV SCH ×3 (06:14→22:13)
[2022-02-19 06:19] LABS: POTASSIUM 3.8 MMOL/L (3.6-5.0)
[2022-02-19 06:20] LABS: CALCIUM 8.2 MG/DL (8.5-10.1)
[2022-02-19] MEDS: KCL 20 MEQ TAB (K-DUR) PO SCH (06:21)
[2022-02-19] MEDS: POTASSIUM CL 10MEQ/50ML IVPB 50 ML IV SCH (06:21)
[2022-02-19 06:25] LABS: CREATININE SERUM 0.86 MG/DL (0.60-1.30)
[2022-02-19 06:27] LABS: MAGNESIUM 2.6 MG/DL (1.6-2.4)
[2022-02-19] MEDS: inSUlin ASPART (NovoLOG) 1 UNIT/0.01 ML (CHARGE PER UNIT) SC SCH ×4 (06:31→23:16)
[2022-02-19] MEDS: MAGNESIUM 1 GM/100 ML IVPB 100 ML IV SCH (06:31)
--- NOTE | 2022-02-19 07:15 | Diagnostic Imaging Report ---
INDICATION: Respiratory distress. Comparison made with prior examination from 02/18/2022. FINDINGS: There is cardiomegaly. There is diffuse bilateral airspace disease. There is some venous congestion. There is no pneumothorax. ET and NG tubes are in satisfactory position. IMPRESSION: Cardiomegaly and some central pulmonary venous congestion with bibasal pulmonary infiltrates. Dictated by: Dictated on workstation # [id number]
[2022-02-19 07:19] VITALS: BP 181/92
[2022-02-19] MEDS: NICOTINE PATCH REMOVAL TP SCH (07:57)
[2022-02-19] MEDS: FUROSEMIDE 40 MG (LASIX) TAB PO SCH (07:57)
[2022-02-19] MEDS: guaiFENesin (MUCINEX) 600 MG TAB PO SCH ×2 (07:57→19:59)
[2022-02-19] MEDS: PANTOPRAZOLE 40 MG (PROTONIX) VIAL IV SCH (07:57)
[2022-02-19] MEDS: dilTIAZem120 MG (CARDIZEM CD) CAP PO SCH (07:57)
[2022-02-19] MEDS: polyethylene glycoL POWDER 17 GM (MIRALAX) PACK PO SCH ×2 (07:57→19:59)
[2022-02-19] MEDS: NICOTINE 21 MG (NICODERM) PATCH TD SCH (07:57)
[2022-02-19] MEDS: DOCUSATE SODIUM 100 MG (COLACE) CAP PO SCH ×3 (07:58→21:00)
[2022-02-19] MEDS: oxyCODONE ER 10 MG (OxyCONTIN CR) TAB PO SCH ×2 (07:58→20:00)
--- NOTE | 2022-02-19 09:49 | Tele-ICU Progress Note ---
Subjective Date Seen by a Provider: February 19, 2022 Time Seen by a Provider: 09:05 Subjective/Events-last exam This virtual visit was conducted using real time audio/video. Thank you for asking us to see this patient for respiratory insufficiency due to AECOPD, pna. Pt intubated 02/18/2020 at approx 12:30 PM. PE: sedated on vent. VSS. O2 sat 92% on vent 50%/+12. HEENT: No obvious masses, adenopathy or JVD. Chest: Diminished breath sounds. CV: RRR S1 S2 No murmur or added sounds. Abd: Non-tender. Bowel sounds Y. : Unremarkable. Vanessa Y. ADMINISTRATION SPECIALIST/psychiatric: Grossly intact. No obvious focal findings. Extremities: No edema. Capillary refill < 3 seconds. Skin: unremarkable. Results: Decreased Hb 12.4. Elevated BUN 34, BG 164. AB.4/38/79 on 50%/+12%.. CXR: hyperinflated w bibasilar infilts R>L. CTAC neg for PE. Available chart/ vitals / labs / images reviewed. Video assessment done using teleICU camera, rest of exam as per RN. A/P: Respiratory insufficiency: Continue present management with vent, medrol, duonebs, prec., ativan, fent. No SBT currently. Monitor for increasing oxygenation needs. Critical Care: critically ill patient. Cont. promise., Dilt., PPI,, nicotine patch, lasix, abx, SSI. Discussed with RN Ilsa and RT. Asked RN to reach out to eICU if any questions or concerns later. Time spent with patient/coordination of care with other health professionals (mins):30 Sepsis Event Evaluation Height, Weight, BMI Height: '" Weight: lbs. oz. kg; 30.04 BMI Method: Exam Exam Patient acknowledged, consented, and participated in this virtual visit which was conducted using real time audio/video Vital Signs Date Time Temp Pulse Resp B/P (MAP) Pulse Ox O2 Delivery O2 Flow Rate FiO2 02/19/22 09:00 90 22 143/85 93 Mechanical Ventilator 50.00 02/19/22 08:58 89 148/82 02/19/22 08:00 88 6 170/92 92 Mechanical Ventilator 50.00 02/19/22 08:00 93 Mechanical Ventilator 50 02/19/22 07:30 38.0 02/19/22 07:19 85 18 94 50 02/19/22 07:00 87 02/19/22 07:00 86 14 180/93 93 Mechanical Ventilator 50.00 02/19/22 06:14 90 185/96 02/19/22 06:00 87 16 170/91 93 Mechanical Ventilator 50.00 02/19/22 05:00 120 26 02/19/22 05:00 87 16 171/89 95 Mechanical Ventilator 50.00 02/19/22 04:00 37.7 02/19/22 04:00 95 Mechanical Ventilator 50 02/19/22 04:00 87 16 166/84 93 Mechanical Ventilator 50.00 02/19/22 03:00 89 16 161/83 92 Mechanical Ventilator 50.00 02/19/22 02:40 82 159/81 02/19/22 02:34 80 17 95 50 02/19/22 02:06 80 154/88 02/19/22 02:00 80 16 155/875 95 Mechanical Ventilator 50.00 02/19/22 01:00 81 16 156/79 95 Mechanical Ventilator 50.00 02/19/22 01:00 81 02/19/22 00:37 37.3 02/19/22 00:00 95 Mechanical Ventilator 50 02/19/22 00:00 82 16 158/87 95 Mechanical Ventilator 50.00 02/18/22 23:00 85 16 157/84 92 Mechanical Ventilator 50.00 02/18/22 22:57 84 162/95 02/18/22 22:41 37.3 02/18/22 22:07 81 16 94 50 02/18/22 22:00 81 16 163/93 94 Mechanical Ventilator 50.00 02/18/22 21:00 80 16 161/91 94 Mechanical Ventilator 50.00 02/18/22 20:02 79 159/85 02/18/22 20:01 78 159/85 02/18/22 20:00 78 16 158/85 94 Mechanical Ventilator 50.00 02/18/22 20:00 94 Mechanical Ventilator 50 02/18/22 19:56 37.2 02/18/22 19:00 77 02/18/22 19:00 77 16 156/94 95 Mechanical Ventilator 50.00 02/18/22 18:52 75 16 96 50 02/18/22 18:00 75 16 158/89 96 Mechanical Ventilator 50.00 02/18/22 17:00 78 16 159/90 96 Mechanical Ventilator 50.00 02/18/22 16:00 80 16 158/85 95 Mechanical Ventilator 50.00 02/18/22 16:00 95 Mechanical Ventilator 50 02/18/22 16:00 80 158/85 02/18/22 15:52 37.0 02/18/22 15:00 79 14 157/83 94 Mechanical Ventilator 50.00 02/18/22 14:50 77 16 96 50 02/18/22 14:00 78 16 155/88 95 Mechanical Ventilator 50.00 02/18/22 13:00 79 16 160/85 95 Mechanical Ventilator 50.00 02/18/22 13:00 79 02/18/22 12:30 95 149/89 02/18/22 12:30 81 149/89 02/18/22 12:00 36.3 02/18/22 12:00 95 Mechanical Ventilator 50 02/18/22 12:00 81 16 149/89 95 Mechanical Ventilator 50.00 02/18/22 11:00 82 9 94 Mechanical Ventilator 50.00 02/18/22 10:09 80 17 93 50 02/18/22 10:00 81 14 94 Mechanical Ventilator 50.00 I & O 02/19/22 06:59 Intake Total 1460 ml Output Total 1700 ml Balance -240 ml Height & Weight Height: '" Weight: lbs. oz. kg; 30.04 BMI Method: General Appearance: No Apparent Distress, WD/WN, Chronically ill, Other (Sedated and intubated) HEENT: PERRL/EOMI, Normal ENT Inspection Neck: Normal Inspection; No JVD Respiratory: No Accessory Muscle Use, No Respiratory Distress, Decreased Breath Sounds Cardiovascular: Regular Rate, Rhythm Capillary Refill: Less Than 3 Seconds Gastrointestinal: normal bowel sounds, soft Extremity: Normal Inspection, Non Tender, No Pedal Edema Neurologic/Psychiatric: Alert, Oriented x3 Skin: Normal Color, Warm/Dry Results Lab Laboratory Tests 02/18/22 03:45 02/19/22 05:44 Assessment/Plan Assessment/Plan See free text. Critical Care: Ventilator Management MARGARITA PETTY MD February 19, 2022 09:49
[2022-02-19 10:45] VITALS: BP 145/85
[2022-02-19 14:52] VITALS: BP 135/76
[2022-02-19 18:37] VITALS: BP 155/85
[2022-02-19] MEDS: IBUPROFEN TABLET 200 MG TAB PO PRN (19:59)
[2022-02-19] MEDS: ENOXAPARIN 40 MG/0.4 ML (LOVENOX) SYR SQ SCH (19:59)
[2022-02-19 22:19] VITALS: BP 145/80
[2022-02-20] MEDS: DexMEDEtomidine 250 ML DRIP 250 ML IV SCH ×4 (01:15→23:05)
[2022-02-20] MEDS: fentaNYL DRIP PRE-MIX 250 ML IV SCH ×7 (01:42→23:04)
[2022-02-20 02:05] VITALS: BP 131/80
[2022-02-20] MEDS: RT-ALBUTEROL/IPRATROPIUM 3 ML (DUONEB) VIAL INH SCH ×6 (02:05→21:30)
[2022-02-20] MEDS: PROPOFOL DRIP (ICU) 100 ML IV SCH ×4 (03:01→19:23)
[2022-02-20] MEDS: methylPREDNISolone 40 MG/ML (Solu-MEDROL) VIAL IV SCH ×4 (03:31→21:33)
[2022-02-20 04:41] LABS: BASOPHILS % (AUTO) 1 % (0-10); EOSINOPHILS % (AUTO) 0 % (0-10); HEMATOCRIT 38 % (40-54); HEMOGLOBIN 11.9 g/dL (13.3-17.7); LYMPHOCYTES # (AUTO) 0.2 10^3/uL (1.0-4.0); LYMPHOCYTES % (AUTO) 5 % (12-44); MEAN CORPUSCULAR HEMOGLOBIN 30 pg (25-34); MEAN CORPUSCULAR HGB CONC 31 g/dL (32-36); MEAN CORPUSCULAR VOLUME 96 fL (80-99); MEAN PLATELET VOLUME 10.5 fL (9.0-12.2); MONOCYTES # (AUTO) 0.3 10^3/uL (0.0-1.0); MONOCYTES % (AUTO) 6 % (0-12); NEUTROPHILS # (AUTO) 3.6 10^3/uL (1.8-7.8); NEUTROPHILS % (AUTO) 82 % (42-75); PLATELET COUNT 187 10^3/uL (130-400); WHITE BLOOD COUNT 4.4 10^3/uL (4.3-11.0)
[2022-02-20 04:55] LABS: POTASSIUM 3.7 MMOL/L (3.6-5.0)
[2022-02-20 04:56] LABS: CALCIUM 8.1 MG/DL (8.5-10.1)
[2022-02-20 05:01] LABS: CREATININE SERUM 0.77 MG/DL (0.60-1.30)
[2022-02-20 05:03] LABS: MAGNESIUM 2.7 MG/DL (1.6-2.4)
[2022-02-20 05:03] LABS: ABG BASE EXCESS -1.6 MMOL/L (-2.5-2.5); ABG OXYGEN SATURATION 94 % (94-100); ABG PCO2 43 MMHG (35-45); ABG PH 7.35 (7.37-7.43); ABG PO2 65 MMHG (79-93); ABG TCO2 24.8 MMOL/L (21.0-31.0)
[2022-02-20 05:04] LABS: ALLENS TEST YES-POS; INSPIRED O2 50%; VENTILATOR YES
[2022-02-20] MEDS: POTASSIUM CL 10MEQ/50ML IVPB 50 ML IV SCH (05:40)
[2022-02-20] MEDS: MAGNESIUM 1 GM/100 ML IVPB 100 ML IV SCH (05:41)
[2022-02-20] MEDS: KCL 20 MEQ TAB (K-DUR) PO SCH (05:41)
[2022-02-20] MEDS: inSUlin ASPART (NovoLOG) 1 UNIT/0.01 ML (CHARGE PER UNIT) SC SCH ×3 (05:41→18:50)
--- NOTE | 2022-02-20 05:57 | Progress Note - Hospitalist ---
Subjective HPI/CC On Admission Date Seen by Provider: February 20, 2022 Time Seen by Provider: 09:00 Subjective/Events-last exam Pt remains on the ventilator Will start tube feedings Long course ahead given his end stage COPD Starting tube feeds Objective Exam Vital Signs Vital Signs Date Time Temp Pulse Resp B/P (MAP) Pulse Ox O2 Delivery O2 Flow Rate FiO2 02/21/22 04:00 91 Mechanical Ventilator 50 02/21/22 02:19 73 16 02/21/22 01:08 122/78 02/21/22 00:00 50.00 02/20/22 22:36 36.2 Capillary Refill : Less Than 3 Seconds General Appearance: No Apparent Distress, WD/WN, Chronically ill, Other (Sedated and intubated) Respiratory: No Accessory Muscle Use, No Respiratory Distress, Decreased Breath Sounds Cardiovascular: Regular Rate, Rhythm Results/Procedures Lab Patient resulted labs reviewed. 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
[2022-02-20] MEDS: CATHETER FLUSH 10 ML SYR IV SCH ×3 (06:44→21:33)
[2022-02-20 07:08] VITALS: BP 120/77
--- NOTE | 2022-02-20 07:23 | Diagnostic Imaging Report ---
INDICATION: Respiratory distress. Comparison with 02/19/2022. FINDINGS: ET tube and NG tube remain in good position. There has been improved aeration. There are decreasing infiltrates when compared with previous exam. Heart remains mildly enlarged. IMPRESSION: The 1. Support lines remain in good position. 2. Improved aeration with decreasing pulmonary edema. Dictated by: Dictated on workstation # [id number]
[2022-02-20] MEDS: polyethylene glycoL POWDER 17 GM (MIRALAX) PACK PO SCH ×2 (08:54→20:56)
[2022-02-20] MEDS: dilTIAZem120 MG (CARDIZEM CD) CAP PO SCH (08:55)
[2022-02-20] MEDS: guaiFENesin (MUCINEX) 600 MG TAB PO SCH ×2 (08:55→20:56)
[2022-02-20] MEDS: DOCUSATE SODIUM 100 MG (COLACE) CAP PO SCH ×2 (08:55→20:56)
[2022-02-20] MEDS: PANTOPRAZOLE 40 MG (PROTONIX) VIAL IV SCH (08:55)
[2022-02-20] MEDS: FUROSEMIDE 40 MG (LASIX) TAB PO SCH (08:55)
[2022-02-20] MEDS: NICOTINE 21 MG (NICODERM) PATCH TD SCH (08:55)
[2022-02-20] MEDS: oxyCODONE ER 10 MG (OxyCONTIN CR) TAB PO SCH ×2 (08:56→20:56)
[2022-02-20] MEDS: NICOTINE PATCH REMOVAL TP SCH (08:56)
--- NOTE | 2022-02-20 09:29 | Tele-ICU Progress Note ---
Subjective Date Seen by a Provider: February 20, 2022 Time Seen by a Provider: 08:25 Subjective/Events-last exam This virtual visit was conducted using real time audio/video. Thank you for asking us to see this patient for respiratory insufficiency due to AECOPD, pna. Pt intubated 02/18/2020 at approx 12:30 PM. PE: sedated on vent. VSS. O2 sat 93% on vent 50%/+12. HEENT: No obvious masses, adenopathy or JVD. Chest: Diminished breath sounds. CV: RRR S1 S2 No murmur or added sounds. Abd: Non-tender. Bowel sounds Y. : Unremarkable. Vanessa Y. AUTOMATION CLERK/psychiatric: Grossly intact. No obvious focal findings. Extremities: No edema. Capillary refill < 3 seconds. Skin: unremarkable. Results: Decreased Hb 11.9. Elevated BUN 34, BG 164. AB.36/43/65 on 50%/+12%.. CXR: hyperinflated w bibasilar infilts R>L, somewhat decreased. CTAC neg for PE. Available chart/ vitals / labs / images reviewed. Video assessment done using teleICU camera, rest of exam as per RN. A/P: Respiratory insufficiency: Continue present management with vent, medrol, duonebs, prec., propofol, fent. No SBT currently. Monitor for increasing oxygenation needs. Consider Palliative Care consult. Critical Care: critically ill patient. Cont. promise., Dilt., PPI,, nicotine patch, lasix, nicotine patch. SSI. Discussed with CHAYITO Sunshine and RT. Asked RN to reach out to eICU if any questions or concerns later. Time spent with patient/coordination of care with other health professionals (mins):30 Sepsis Event Evaluation Height, Weight, BMI Height: '" Weight: lbs. oz. kg; 30.04 BMI Method: Exam Exam Patient acknowledged, consented, and participated in this virtual visit which was conducted using real time audio/video Vital Signs Date Time Temp Pulse Resp B/P (MAP) Pulse Ox O2 Delivery O2 Flow Rate FiO2 02/20/22 09:00 66 16 113/73 92 Mechanical Ventilator 50.00 02/20/22 08:00 67 16 120/75 92 Mechanical Ventilator 50.00 02/20/22 07:51 66 120/77 02/20/22 07:50 66 120/77 02/20/22 07:44 36.0 02/20/22 07:08 66 16 92 50 02/20/22 07:00 68 02/20/22 07:00 67 16 120/77 93 Mechanical Ventilator 50.00 02/20/22 06:00 68 16 122/78 92 Mechanical Ventilator 50.00 02/20/22 05:00 80 21 02/20/22 05:00 71 16 119/76 92 Mechanical Ventilator 50.00 02/20/22 04:00 71 16 121/76 94 Mechanical Ventilator 50.00 02/20/22 04:00 93 Mechanical Ventilator 50 02/20/22 03:01 69 131/80 02/20/22 03:00 70 16 118/73 96 Mechanical Ventilator 50.00 02/20/22 02:05 69 16 95 50 02/20/22 02:00 68 16 135/78 95 Mechanical Ventilator 50.00 02/20/22 01:15 72 141/83 02/20/22 01:00 71 16 135/80 95 Mechanical Ventilator 50.00 02/20/22 01:00 71 02/20/22 00:00 92 Mechanical Ventilator 50 02/20/22 00:00 36.3 02/20/22 00:00 72 16 141/83 95 Mechanical Ventilator 50.00 02/19/22 23:00 75 16 143/79 94 Mechanical Ventilator 50.00 02/19/22 22:19 77 17 94 50 02/19/22 22:00 78 16 145/80 93 Mechanical Ventilator 50.00 02/19/22 22:00 36.9 02/19/22 21:00 76 15 142/81 94 Mechanical Ventilator 50.00 02/19/22 20:46 85 155/85 02/19/22 20:29 36.7 02/19/22 20:00 92 Mechanical Ventilator 50 02/19/22 20:00 82 14 154/85 93 Mechanical Ventilator 50.00 02/19/22 19:59 38.0 02/19/22 19:58 37.9 02/19/22 19:00 85 13 157/86 94 Mechanical Ventilator 50.00 02/19/22 19:00 85 02/19/22 18:37 84 17 94 50 02/19/22 18:19 85 152/81 02/19/22 18:00 87 14 152/85 90 Mechanical Ventilator 50.00 02/19/22 17:56 90 Mechanical Ventilator 50.00 02/19/22 17:00 83 15 137/78 91 Mechanical Ventilator 40.00 02/19/22 16:13 37.3 02/19/22 16:00 94 Mechanical Ventilator 50 02/19/22 16:00 81 16 138/79 93 Mechanical Ventilator 40.00 Arterial Line 02/19/22 15:32 80 139/76 02/19/22 15:00 80 16 142/78 99 Mechanical Ventilator 40.00 02/19/22 14:52 80 16 93 50 02/19/22 14:27 94 Mechanical Ventilator 40.00 02/19/22 14:00 80 9 140/75 95 Mechanical Ventilator 50.00 02/19/22 13:00 82 10 142/80 95 Mechanical Ventilator 50.00 02/19/22 12:59 81 02/19/22 12:08 83 144/79 02/19/22 12:00 95 Mechanical Ventilator 50 02/19/22 12:00 81 13 144/79 94 Mechanical Ventilator 50.00 02/19/22 11:36 37.3 02/19/22 11:00 82 16 142/77 96 Mechanical Ventilator 50.00 02/19/22 10:48 81 145/84 02/19/22 10:45 81 18 97 50 02/19/22 10:00 82 8 149/86 97 Mechanical Ventilator 50.00 I & O 02/20/22 07:00 Intake Total 100 ml Output Total 2475 ml Balance -2375 ml Height & Weight Height: '" Weight: lbs. oz. kg; 30.04 BMI Method: General Appearance: Chronically ill, Other (sedated and intubated) HEENT: PERRL/EOMI, Normal ENT Inspection Neck: Normal Inspection; No JVD Respiratory: Lungs Clear, Normal Breath Sounds Cardiovascular: Regular Rate, Rhythm Capillary Refill: Less Than 3 Seconds Gastrointestinal: normal bowel sounds, soft Extremity: Normal Inspection, Non Tender, No Pedal Edema Neurologic/Psychiatric: Alert, Oriented x3 Skin: Normal Color, Warm/Dry Results Lab Laboratory Tests 02/19/22 05:44 02/20/22 04:14 Assessment/Plan Assessment/Plan See free text. Critical Care: Ventilator Management MARGARITA PETTY MD February 20, 2022 09:29
[2022-02-20 11:20] VITALS: BP 98/68
[2022-02-20 15:11] VITALS: BP 117/75
[2022-02-20 18:30] VITALS: BP 106/70
[2022-02-20] MEDS: ENOXAPARIN 40 MG/0.4 ML (LOVENOX) SYR SQ SCH (20:58)
[2022-02-20 21:30] VITALS: BP 118/73
[2022-02-21] MEDS: inSUlin ASPART (NovoLOG) 1 UNIT/0.01 ML (CHARGE PER UNIT) SC SCH ×5 (00:07→23:27)
[2022-02-21] MEDS: PROPOFOL DRIP (ICU) 100 ML IV SCH ×4 (01:08→21:28)
[2022-02-21] MEDS: fentaNYL DRIP PRE-MIX 250 ML IV SCH ×7 (02:13→23:24)
[2022-02-21 02:19] VITALS: BP 132/84
[2022-02-21] MEDS: RT-ALBUTEROL/IPRATROPIUM 3 ML (DUONEB) VIAL INH SCH ×6 (02:19→21:36)
[2022-02-21] MEDS: methylPREDNISolone 40 MG/ML (Solu-MEDROL) VIAL IV SCH ×4 (03:39→21:27)
[2022-02-21 05:19] LABS: BASOPHILS % (AUTO) 0 % (0-10); EOSINOPHILS % (AUTO) 0 % (0-10); HEMATOCRIT 40 % (40-54); HEMOGLOBIN 12.6 g/dL (13.3-17.7); LYMPHOCYTES # (AUTO) 0.2 10^3/uL (1.0-4.0); LYMPHOCYTES % (AUTO) 3 % (12-44); MEAN CORPUSCULAR HEMOGLOBIN 31 pg (25-34); MEAN CORPUSCULAR HGB CONC 31 g/dL (32-36); MEAN CORPUSCULAR VOLUME 97 fL (80-99); MEAN PLATELET VOLUME 10.9 fL (9.0-12.2); MONOCYTES # (AUTO) 0.3 10^3/uL (0.0-1.0); MONOCYTES % (AUTO) 5 % (0-12); NEUTROPHILS # (AUTO) 5.6 10^3/uL (1.8-7.8); NEUTROPHILS % (AUTO) 87 % (42-75); PLATELET COUNT 181 10^3/uL (130-400); WHITE BLOOD COUNT 6.5 10^3/uL (4.3-11.0)
[2022-02-21 05:25] LABS: ABG BASE EXCESS -0.1 MMOL/L (-2.5-2.5); ABG OXYGEN SATURATION 91 % (94-100); ABG PCO2 44 MMHG (35-45); ABG PH 7.37 (7.37-7.43); ABG PO2 67 MMHG (79-93); ABG TCO2 25.9 MMOL/L (21.0-31.0)
[2022-02-21 05:28] LABS: ALLENS TEST YES-POS; INSPIRED O2 50%; VENTILATOR YES
[2022-02-21 05:34] LABS: POTASSIUM 3.7 MMOL/L (3.6-5.0)
[2022-02-21 05:35] LABS: CALCIUM 8.1 MG/DL (8.5-10.1)
[2022-02-21 05:37] LABS: BAND NEUTROPHILS 8 %; NEUTROPHILS % (MANUAL) 88 %
[2022-02-21 05:38] LABS: ANISOCYTOSIS SLIGHT; BASOPHILS % (MANUAL) 0 %; EOSINOPHILS % (MANUAL) 0 %; LYMPHOCYTES % (MANUAL) 1 %; MONOCYTES % (MANUAL) 3 %
[2022-02-21 05:39] LABS: CREATININE SERUM 0.75 MG/DL (0.60-1.30)
[2022-02-21 05:42] LABS: MAGNESIUM 2.7 MG/DL (1.6-2.4)
[2022-02-21] MEDS: POTASSIUM CL 10MEQ/50ML IVPB 50 ML IV SCH (05:48)
[2022-02-21] MEDS: MAGNESIUM 1 GM/100 ML IVPB 100 ML IV SCH (05:49)
[2022-02-21] MEDS: KCL 20 MEQ TAB (K-DUR) PO SCH (05:49)
[2022-02-21] MEDS: DexMEDEtomidine 250 ML DRIP 250 ML IV SCH ×3 (05:58→19:55)
--- NOTE | 2022-02-21 06:01 | Progress Note - Hospitalist ---
Subjective HPI/CC On Admission Date Seen by Provider: February 21, 2022 Time Seen by Provider: 10:30 Subjective/Events-last exam Pt is doing the same Sodium level 150 so we will change the free water through his OG tube to 200ccs per tube every 4 hours instead of 100 Updated his about a trach possibility and superintendent terminal ventilator status He has end stage COPD, I doubt he will be able to get off the ventilator Objective Exam Vital Signs Vital Signs Date Time Temp Pulse Resp B/P (MAP) Pulse Ox O2 Delivery O2 Flow Rate FiO2 02/22/22 04:09 91 Mechanical Ventilator 55 02/22/22 03:02 82 144/65 02/22/22 03:00 37.0 55.00 02/22/22 03:00 16 Capillary Refill : Less Than 3 Seconds General Appearance: No Apparent Distress, Chronically ill, Other (Sedated and intubated) Respiratory: Lungs Clear, Normal Breath Sounds Cardiovascular: Regular Rate, Rhythm Results/Procedures Lab Laboratory Tests 02/22/22 05:05 Patient resulted labs reviewed. 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
[2022-02-21] MEDS: CATHETER FLUSH 10 ML SYR IV SCH ×3 (06:05→21:28)
[2022-02-21 07:39] VITALS: BP 138/81
[2022-02-21] MEDS: oxyCODONE ER 10 MG (OxyCONTIN CR) TAB PO SCH ×2 (08:50→21:27)
[2022-02-21] MEDS: polyethylene glycoL POWDER 17 GM (MIRALAX) PACK PO SCH ×2 (08:58→21:27)
[2022-02-21] MEDS: PANTOPRAZOLE 40 MG (PROTONIX) VIAL IV SCH (08:59)
[2022-02-21] MEDS: NICOTINE 21 MG (NICODERM) PATCH TD SCH (08:59)
[2022-02-21] MEDS: FUROSEMIDE 40 MG (LASIX) TAB PO SCH (08:59)
[2022-02-21] MEDS: NICOTINE PATCH REMOVAL TP SCH (08:59)
[2022-02-21] MEDS: guaiFENesin (MUCINEX) 600 MG TAB PO SCH ×2 (08:59→21:27)
[2022-02-21] MEDS: dilTIAZem120 MG (CARDIZEM CD) CAP PO SCH (08:59)
[2022-02-21] MEDS: DOCUSATE SODIUM 10 MG/ML 10 ML UDC (COLACE) GT SCH ×2 (09:21→21:27)
[2022-02-21 10:36] VITALS: BP 110/67
--- NOTE | 2022-02-21 11:38 | Tele-ICU Progress Note ---
Subjective Date Seen by a Provider: February 21, 2022 Time Seen by a Provider: 11:37 Subjective/Events-last exam (Tele-ICU Physician , Progress Note ) Available chart/ vitals / labs / Images reviewed Video assessment done using teleICU camera, rest of exam as per RN Discussed with RN , EXAM PER RN Events overnight : Afebrile FiO2 - 85% peep 10 I/O = neg Drips: Pressors: , hemodynamically stable Sedation gtt: propfol 30 fent 350 precedex 1.5 ( RASS -1 ) VENT SETTINGS and ABG reviewed ? candidate for SBT today REVIEWED Cardiovascular Stability / Sedation Score / FI02/PEEP / ABG / CXR Consultants: Hospital course: (02/12) 66 y/o make admitted for CHF, COPD exac. pneumonia (02/14) transferred to ICU, worsening resp status. bipap applied (02/15) Avaps. (02/17) Emergently intubated @ 1234 A/P Acute resp failure ( CTA 02/12 - no pe , small effusions - 50% peep 8 - EF 65% , dist grI dsfnct AECOPD - SM 40 q 6 h -duoneb q 4 LRTI - sputum 02/17 - ususl ravi Pulm HTN - ECHO 02/14 - RVSP 70 mmHg Hypernatremia - increased H20 TF SASKIA - 02/16 - resolved ELV TGL - to wean down propofol left apical bandlike opacity - for follow as outpt by PCP Lines : peripf (Central Line Necessity Reviewed) Vanessa: + OG: + Nutrition: TF Analgesia: Anxiety/ delirium VTE Prophylaxis: promise 40 Stress Ulcer Prophylaxis: ppi Plans in collaboration with bedside consultants and IM MDs. Discussed with RN to reach out if any questions or concerns A total of 31minutes of critical care time was devoted to this patient today, required to treat and/or prevent further deterioration of critical care condition ( as above) . Sepsis Event Evaluation Height, Weight, BMI Height: '" Weight: lbs. oz. kg; 30.04 BMI Method: Exam Exam Patient acknowledged, consented, and participated in this virtual visit which was conducted using real time audio/video Vital Signs Date Time Temp Pulse Resp B/P (MAP) Pulse Ox O2 Delivery O2 Flow Rate FiO2 02/21/22 11:00 67 16 107/62 93 Mechanical Ventilator 50.00 02/21/22 10:36 62 16 91 50 02/21/22 10:00 61 16 110/67 93 Mechanical Ventilator 50.00 02/21/22 09:00 68 16 140/81 93 Mechanical Ventilator 50.00 02/21/22 08:00 70 16 138/81 93 Mechanical Ventilator 50.00 02/21/22 08:00 94 Mechanical Ventilator 50 02/21/22 07:39 69 16 93 50 02/21/22 07:36 36.1 02/21/22 07:28 70 02/21/22 07:00 70 16 138/81 93 Mechanical Ventilator 50.00 02/21/22 06:00 75 16 147/84 92 Mechanical Ventilator 50.00 02/21/22 05:58 74 132/84 02/21/22 05:58 74 132/84 02/21/22 05:00 75 16 147/94 91 Mechanical Ventilator 50.00 02/21/22 05:00 74 21 02/21/22 04:00 37.0 02/21/22 04:00 91 Mechanical Ventilator 50 02/21/22 04:00 74 16 137/80 91 Mechanical Ventilator 50.00 02/21/22 03:00 75 16 138/82 93 Mechanical Ventilator 50.00 02/21/22 02:19 73 16 92 50 02/21/22 02:00 73 16 132/84 93 Mechanical Ventilator 50.00 02/21/22 01:08 71 122/78 02/21/22 01:00 71 16 126/79 90 Mechanical Ventilator 50.00 02/21/22 01:00 71 02/21/22 00:00 91 Mechanical Ventilator 50 02/21/22 00:00 71 16 122/78 90 Mechanical Ventilator 50.00 02/20/22 23:05 66 118/73 02/20/22 23:00 71 16 122/75 92 Mechanical Ventilator 50.00 02/20/22 22:36 36.2 02/20/22 22:00 69 16 126/78 92 Mechanical Ventilator 50.00 02/20/22 21:30 66 16 92 50 02/20/22 21:00 66 16 117/72 92 Mechanical Ventilator 50.00 02/20/22 20:00 66 16 117/72 91 Mechanical Ventilator 50.00 02/20/22 19:58 91 Mechanical Ventilator 50 02/20/22 19:32 35.9 02/20/22 19:23 61 106/70 02/20/22 19:00 64 16 113/69 90 Mechanical Ventilator 50.00 02/20/22 19:00 64 02/20/22 18:30 61 16 91 50 02/20/22 18:00 61 16 127/74 93 Mechanical Ventilator 50.00 02/20/22 17:00 63 16 112/71 91 Mechanical Ventilator 50.00 02/20/22 16:16 57 119/73 02/20/22 16:00 91 Mechanical Ventilator 50 02/20/22 16:00 119/73 93 Mechanical Ventilator 50.00 02/20/22 15:27 35.8 02/20/22 15:11 57 16 94 50 02/20/22 15:00 117/75 94 Mechanical Ventilator 50.00 02/20/22 14:26 63 103/67 02/20/22 14:00 63 16 102/68 92 Mechanical Ventilator 50.00 02/20/22 13:00 63 02/20/22 13:00 63 16 103/67 91 Mechanical Ventilator 50.00 02/20/22 12:59 80 02/20/22 12:00 91 Mechanical Ventilator 50 02/20/22 12:00 66 16 94/65 89 Mechanical Ventilator 50.00 02/20/22 11:49 36.8 I & O 02/21/22 07:00 Intake Total 530 ml Output Total 2150 ml Balance -1620 ml Height & Weight Height: '" Weight: lbs. oz. kg; 30.04 BMI Method: General Appearance: No Apparent Distress, WD/WN, Chronically ill, Other (Sedated and intubated) HEENT: PERRL/EOMI, Normal ENT Inspection Neck: Normal Inspection; No JVD Respiratory: No Accessory Muscle Use, No Respiratory Distress, Decreased Breath Sounds Cardiovascular: Regular Rate, Rhythm Capillary Refill: Less Than 3 Seconds Gastrointestinal: normal bowel sounds, soft Extremity: Normal Inspection, Non Tender, No Pedal Edema Neurologic/Psychiatric: Alert, Oriented x3 Skin: Normal Color, Warm/Dry Results Lab Laboratory Tests 02/20/22 04:14 02/21/22 05:13 Assessment/Plan Assessment/Plan ` IGNACIO ALDRICH MD February 21, 2022 11:38
[2022-02-21 14:06] VITALS: BP 123/69
[2022-02-21 18:22] VITALS: BP 137/69
[2022-02-21] MEDS: ENOXAPARIN 40 MG/0.4 ML (LOVENOX) SYR SQ SCH (21:27)
[2022-02-21 21:36] VITALS: BP 147/72
[2022-02-22 02:32] VITALS: BP 144/65
[2022-02-22] MEDS: RT-ALBUTEROL/IPRATROPIUM 3 ML (DUONEB) VIAL INH SCH ×6 (02:32→21:57)
[2022-02-22] MEDS: PROPOFOL DRIP (ICU) 100 ML IV SCH ×5 (03:02→21:19)
[2022-02-22] MEDS: fentaNYL DRIP PRE-MIX 250 ML IV SCH ×6 (03:02→21:27)
[2022-02-22] MEDS: DexMEDEtomidine 250 ML DRIP 250 ML IV SCH ×3 (03:02→17:05)
[2022-02-22] MEDS: methylPREDNISolone 40 MG/ML (Solu-MEDROL) VIAL IV SCH ×4 (04:00→21:00)
[2022-02-22 04:13] LABS: ABG BASE EXCESS 2.5 MMOL/L (-2.5-2.5); ABG OXYGEN SATURATION 96 % (94-100); ABG PCO2 39 MMHG (35-45); ABG PH 7.44 (7.37-7.43); ABG PO2 82 MMHG (79-93); ABG TCO2 27.5 MMOL/L (21.0-31.0)
[2022-02-22 04:16] LABS: ALLENS TEST POSITIVE; INSPIRED O2 55; PATIENT TEMP 37; VENTILATOR YES
[2022-02-22 05:25] LABS: BASOPHILS % (AUTO) 0 % (0-10); EOSINOPHILS % (AUTO) 0 % (0-10); HEMATOCRIT 40 % (40-54); HEMOGLOBIN 12.4 g/dL (13.3-17.7); LYMPHOCYTES # (AUTO) 0.2 10^3/uL (1.0-4.0); LYMPHOCYTES % (AUTO) 3 % (12-44); MEAN CORPUSCULAR HEMOGLOBIN 30 pg (25-34); MEAN CORPUSCULAR HGB CONC 31 g/dL (32-36); MEAN CORPUSCULAR VOLUME 96 fL (80-99); MEAN PLATELET VOLUME 11.1 fL (9.0-12.2); MONOCYTES # (AUTO) 0.3 10^3/uL (0.0-1.0); MONOCYTES % (AUTO) 6 % (0-12); NEUTROPHILS % (AUTO) 86 % (42-75); PLATELET COUNT 176 10^3/uL (130-400); WHITE BLOOD COUNT 5.9 10^3/uL (4.3-11.0)
[2022-02-22 05:29] LABS: POTASSIUM 3.3 MMOL/L (3.6-5.0)
[2022-02-22 05:30] LABS: CALCIUM 8.2 MG/DL (8.5-10.1)
[2022-02-22 05:34] LABS: CREATININE SERUM 0.72 MG/DL (0.60-1.30)
[2022-02-22 05:37] LABS: MAGNESIUM 2.7 MG/DL (1.6-2.4)
[2022-02-22] MEDS: POTASSIUM CL 10MEQ/50ML IVPB 50 ML IV SCH ×5 (05:43→06:40)
[2022-02-22] MEDS: inSUlin ASPART (NovoLOG) 1 UNIT/0.01 ML (CHARGE PER UNIT) SC SCH ×3 (05:44→17:57)
[2022-02-22] MEDS: KCL 20 MEQ TAB (K-DUR) PO SCH (05:44)
[2022-02-22] MEDS: CATHETER FLUSH 10 ML SYR IV SCH ×3 (05:44→22:00)
[2022-02-22] MEDS: MAGNESIUM 1 GM/100 ML IVPB 100 ML IV SCH (05:54)
[2022-02-22 06:01] LABS: ANISOCYTOSIS SLIGHT; LYMPHOCYTES % (MANUAL) 3 %; MICROCYTOSIS SLIGHT; MONOCYTES % (MANUAL) 7 %; NEUTROPHILS % (MANUAL) 90 %
[2022-02-22 07:05] VITALS: BP 159/77
--- NOTE | 2022-02-22 07:05 | Progress Note - Hospitalist ---
Subjective HPI/CC On Admission Date Seen by Provider: February 22, 2022 Time Seen by Provider: 10:30 Subjective/Events-last exam Pt failed the wean trial Having some episodes of v tach PEEP is at 8, FiO2 is at 50% Updated at the bedside Trach and PEG tube will be placed by Dr. Morales on Friday Objective Exam Vital Signs Vital Signs Date Time Temp Pulse Resp B/P (MAP) Pulse Ox O2 Delivery O2 Flow Rate FiO2 02/23/22 05:00 69 16 125/65 95 Mechanical Ventilator 50.00 02/23/22 04:00 60 02/23/22 04:00 37.8 Capillary Refill : Less Than 3 Seconds General Appearance: No Apparent Distress, WD/WN, Chronically ill, Obese, Other (Intubated and sedated) Respiratory: Decreased Breath Sounds Cardiovascular: Regular Rate, Rhythm Results/Procedures Lab Laboratory Tests 02/23/22 04:40 Patient resulted labs reviewed. Assessment/Plan Assessment and Plan Assess & Plan/Chief Complaint Assessment: Acute on chronic respiratory failure requiring BiPAP but failed and intubated on 02/17/2022 End-stage COPD but still remains full code and intubation if needed per patient request Pneumonia Hypertension Hyperlipidemia Plan: ICU care Precedex BiPAP 02/17/2022: Intubated Appreciate eICU 02/18/2022: Supportive care Maintain intubation 02/19/22: Monitor closely 02/20/2022: Start tube feeds 02/21/2022: Appreciate ventilator management Poor prognosis 02/22/2022: Trach and PEG placement on Friday Poor prognosis Critical Care Ventilator Management Clinical Quality Measures AMI/AHF: ASA po Prior to arrival: CURTIS Patterson DO February 22, 2022 07:05
--- NOTE | 2022-02-22 07:40 | Diagnostic Imaging Report ---
Indication: Respiratory failure AP view of chest is obtained with comparison made to study of 02/20/2022. Endotracheal tube remains in place with tip just below the thoracic inlet. Overall heart size is within normal limits. There is background air trapping. Prominent interstitial markings are seen throughout the lungs with blunting of the costophrenic sulci, greater on the right. There is no evidence of consolidation. IMPRESSION: Findings suggest probable background pulmonary edema or pneumonitis with mild to moderate right pleural effusion. Dictated by: Dictated on workstation # [id number]
[2022-02-22] MEDS: guaiFENesin (MUCINEX) 600 MG TAB PO SCH ×2 (08:59→20:58)
[2022-02-22] MEDS: oxyCODONE ER 10 MG (OxyCONTIN CR) TAB PO SCH ×2 (08:59→20:59)
--- NOTE | 2022-02-22 09:17 | Tele-ICU Progress Note ---
Subjective Date Seen by a Provider: February 22, 2022 Time Seen by a Provider: 09:16 Subjective/Events-last exam (Tele-ICU Physician , Progress Note ) Available chart/ vitals / labs / Images reviewed Video assessment done using teleICU camera, rest of exam as per RN Discussed with RN , EXAM PER RN Events overnight : Afebrile - 37 FiO2 - 55% peep 10 I/O = neg Drips: Pressors: , hemodynamically stable Sedation gtt: propfol 30 fent 350 precedex 1.5 ( RASS -1 ) VENT SETTINGS and ABG reviewed ? candidate for SBT today REVIEWED Cardiovascular Stability / Sedation Score / FI02/PEEP / ABG / CXR Consultants: Hospital course: (02/12) 66 y/o make admitted for CHF, COPD exac. pneumonia (02/14) transferred to ICU, worsening resp status. bipap applied (02/15) Avaps. (02/17) Emergently intubated @ 1234 02/22- 55% peep 8 - failed SBT with agitation A/P Acute resp failure ( CTA 02/12 - no pe , small effusions - SBT for 10 min - restless ( on precedex1.5 ) not follow commands but moves all extramities , HT and RR andf BP increases - WILL RESUME NG HOME PAIN MEDS AND REASSESS - 55% peep 8 - EF 65% , dist grI dsfnct -02/22 - CXR with worsening on RIGHT AECOPD - SM 40 q 6 h- to cont same dose today -duoneb q 4 LRTI - sputum 02/17 - ususl ravi Pulm HTN - ECHO 02/14 - RVSP 70 mmHg - cont diuresis Hypernatremia - increased H20 TF SASKIA - 02/16 - resolved ELV TGL - to wean down propofol left apical bandlike opacity - for follow as outpt by PCP Lines : peripf (Central Line Necessity Reviewed) Vanessa: + OG: + Nutrition: TF Analgesia: Anxiety/ delirium VTE Prophylaxis: promise 40 Stress Ulcer Prophylaxis: ppi Plans in collaboration with bedside consultants and IM MDs. Discussed with RN to reach out if any questions or concerns A total of 31minutes of critical care time was devoted to this patient today, required to treat and/or prevent further deterioration of critical care condition ( as above) . Sepsis Event Evaluation Height, Weight, BMI Height: '" Weight: lbs. oz. kg; 30.04 BMI Method: Exam Exam Patient acknowledged, consented, and participated in this virtual visit which was conducted using real time audio/video Vital Signs Date Time Temp Pulse Resp B/P (MAP) Pulse Ox O2 Delivery O2 Flow Rate FiO2 02/22/22 09:00 77 16 149/74 93 Mechanical Ventilator 55.00 02/22/22 08:00 37.8 02/22/22 08:00 84 16 160/77 93 Mechanical Ventilator 55.00 02/22/22 07:59 93 Mechanical Ventilator 55 02/22/22 07:05 81 16 93 55 02/22/22 07:00 80 15 147/79 93 Mechanical Ventilator 55.00 02/22/22 07:00 82 02/22/22 06:00 89 15 163/81 93 Mechanical Ventilator 55.00 02/22/22 05:00 84 22 93 02/22/22 05:00 79 16 171/93 93 Mechanical Ventilator 55.00 02/22/22 04:09 91 Mechanical Ventilator 55 02/22/22 04:00 82 16 151/75 94 Mechanical Ventilator 55.00 02/22/22 03:02 82 144/65 02/22/22 03:02 82 144/65 02/22/22 03:00 37.0 Mechanical Ventilator 55.00 02/22/22 03:00 85 16 138/76 93 Mechanical Ventilator 55.00 02/22/22 02:32 82 16 93 55 02/22/22 02:00 82 16 138/72 93 Mechanical Ventilator 55.00 02/22/22 01:00 89 17 145/74 91 Mechanical Ventilator 55.00 02/22/22 00:46 83 02/22/22 00:00 81 15 129/80 92 Mechanical Ventilator 55.00 02/22/22 00:00 93 Mechanical Ventilator 55 02/21/22 23:00 78 18 144/74 93 Mechanical Ventilator 55.00 02/21/22 22:57 36.7 Mechanical Ventilator 55.00 02/21/22 22:00 79 18 126/70 91 Mechanical Ventilator 55.00 02/21/22 21:36 76 16 93 55 02/21/22 21:28 70 137/69 02/21/22 21:00 73 18 142/72 93 Mechanical Ventilator 55.00 02/21/22 20:00 93 Mechanical Ventilator 55 02/21/22 20:00 72 17 148/76 93 Mechanical Ventilator 55.00 02/21/22 19:55 70 137/69 02/21/22 19:00 75 16 140/73 92 Mechanical Ventilator 55.00 02/21/22 19:00 73 02/21/22 19:00 36.8 Mechanical Ventilator 55.00 02/21/22 18:22 70 17 93 55 02/21/22 18:00 81 16 112/62 94 Mechanical Ventilator 50.00 02/21/22 17:00 92 16 110/67 97 Mechanical Ventilator 50.00 02/21/22 16:00 37.1 02/21/22 16:00 69 16 135/74 92 Mechanical Ventilator 50.00 02/21/22 16:00 92 Mechanical Ventilator 50 02/21/22 15:00 67 16 130/70 92 Mechanical Ventilator 50.00 02/21/22 14:06 66 16 90 50 02/21/22 14:00 73 16 109/60 91 Mechanical Ventilator 50.00 02/21/22 13:11 67 02/21/22 13:00 81 16 116/63 97 Mechanical Ventilator 50.00 02/21/22 12:10 67 107/62 02/21/22 12:09 67 107/62 02/21/22 12:00 65 16 112/65 91 Mechanical Ventilator 50.00 02/21/22 12:00 92 Mechanical Ventilator 50 02/21/22 12:00 36.2 02/21/22 11:00 67 16 107/62 93 Mechanical Ventilator 50.00 02/21/22 10:36 62 16 91 50 02/21/22 10:00 61 16 110/67 93 Mechanical Ventilator 50.00 I & O 02/22/22 07:00 Intake Total 3870 ml Output Total 3500 ml Balance 370 ml Height & Weight Height: '" Weight: lbs. oz. kg; 30.04 BMI Method: General Appearance: No Apparent Distress, Chronically ill, Other (Sedated and intubated) HEENT: PERRL/EOMI, Normal ENT Inspection Neck: Normal Inspection; No JVD Respiratory: Lungs Clear, Normal Breath Sounds Cardiovascular: Regular Rate, Rhythm Capillary Refill: Less Than 3 Seconds Gastrointestinal: normal bowel sounds, soft Extremity: Normal Inspection, Non Tender, No Pedal Edema Neurologic/Psychiatric: Alert, Oriented x3 Skin: Normal Color, Warm/Dry Results Lab Laboratory Tests 02/21/22 05:13 02/22/22 05:05 Assessment/Plan Assessment/Plan ` IGNACIO ALDRICH MD February 22, 2022 09:17
[2022-02-22] MEDS: DOCUSATE SODIUM 10 MG/ML 10 ML UDC (COLACE) GT SCH ×2 (09:22→20:59)
[2022-02-22] MEDS: PANTOPRAZOLE 40 MG (PROTONIX) VIAL IV SCH (09:22)
[2022-02-22] MEDS: NICOTINE 21 MG (NICODERM) PATCH TD SCH (09:22)
[2022-02-22] MEDS: polyethylene glycoL POWDER 17 GM (MIRALAX) PACK PO SCH ×2 (09:23→20:59)
[2022-02-22] MEDS: NICOTINE PATCH REMOVAL TP SCH (09:23)
[2022-02-22] MEDS: FUROSEMIDE 40 MG (LASIX) TAB PO SCH (09:23)
--- NOTE | 2022-02-22 12:52 | Consultation-Cardiology ---
HPI-Cardiology Cardiology Consultation: Date of Consultation 02/22/22 Date of Admission 02/12/22 Attending Physician Sherri Arnold DO Admitting Physician [facility] Consulting Physician CAROL LEWIS JR, MD HPI: Time Seen by a Provider: 12:48 Chief Complaint: Reason for consultation: Ventricular tachycardia. I had the pleasure of seeing Audie in the intensive care unit at [facility] in [place], [place] today. He is currently intubated and sedated. I obtained the history from his nurse, his who was at the bedside as well as the electronic medical record. He was admitted to the hospital last week due to an exacerbation of his chronic obstructive pulmonary disease. He was placed on the usual treatment but his respiratory status continued to decline. He was then placed on BiPAP and transferred to the intensive care unit 5 days ago. He then ended up requiring intubation and mechanical ventilation. Earlier today his nurse was attempting to wean his sedation for a ventilator weaning trial and he became agitated, more hypoxemic and then was having some short runs of nonsustained ventricular tachycardia. As such, a cardiology consultation was requested. His states that he follows with a payroll assistant in [place] for an ill-defined arrhythmia. She tells me that he has no previous history of a myocardial infarction but does have a history of heart failure. She tells me that despite him being hospitalized on 4 different occasions over the past year for acute respiratory failure, he continues to smoke cigarettes. He apparently has chronic dyspnea on exertion. I am not able to obtain any history from the patient due to his sedation. Certain portions of this document may have been dictated utilizing voice recognition technology. Inherent to this technology, typographical and grammatical errors may exist. As much as I am diligent to identify and correct these mistakes, some errors may remain in the document. Review of Systems-Cardiology Review of Systems Other comments Not obtainable due to clinical status. [id number] Hx Patient Social History Marrital Status: Living Status: Lives at home independently with his Smoking Status: Current Everyday Smoker Have you traveled recently?: No Alcohol Use?: Yes Pt feels they are or have been: No Tobacco type used: Cigarettes Immunizations Up To Date Date of Influenza Vaccine: Jul 26, 2021 Past Medical History PMH As described under Assessment. Family Medical History Family Medical History: His does not know of any family history of premature coronary artery disease in first-degree relatives. Allergies and Home Medications Allergies Coded Allergies: No Known Drug Allergies (Unverified , 11/26/21) Patient Home Medication List Home Medication List Reviewed: Yes Atorvastatin Calcium (Atorvastatin Calcium) 20 Mg Tablet, 20 MG PO DAILY, (Reported) Entered as Reported by: GENIA CODY on 11/26/211306 Last Action: Reviewed Diltiazem HCl (Diltiazem ER) 120 Mg Capsule.er, 120 MG PO DAILY, (Reported) Entered as Reported by: ADDIS ZAPATA on 02/13/221506 Last Action: Reviewed Ferrous Sulfate (Ferrous Sulfate) 325 Mg (65 Mg Iron) Tablet, 325 MG PO Q48H, (Reported) Entered as Reported by: ADDIS ZAPATA on 02/13/221506 Last Action: Reviewed Furosemide (Furosemide) 40 Mg Tablet, 40 MG PO DAILY, (Reported) Entered as Reported by: GENIA CODY on 11/26/211306 Last Action: Reviewed Guaifenesin (Mucinex) 1,200 Mg Tab.er.12h, 1,200 MG PO BID, (Reported) Entered as Reported by: GENIA CODY on 11/26/211306 Last Action: Reviewed Hydrocodone/Acetaminophen (Hydrocodone-Acetamin 7.5-325) 7.5 Mg-325 Mg Tablet, 1 EA PO Q8H PRN for PAIN-MODERATE (5-7), (Reported) Entered as Reported by: ADDIS ZAPATA on 02/13/221506 Last Action: Reviewed Ipratropium/Albuterol Sulfate (Iprat-Albut 0.5-3(2.5) mg/3 ml) 3 Ml Ampul.neb, 3 ML IH QID PRN for SHORTNESS OF BREATH, (Reported) Entered as Reported by: GENIA CODY on 11/26/211306 Last Action: Reviewed Magnesium Oxide (Magnesium Oxide) 400 Mg Tablet, 400 MG PO HS, (Reported) Entered as Reported by: ADDIS ZAPATA on 02/13/221506 Last Action: Reviewed Multivitamin (Multivitamin) 1 Each Tablet, 1 EACH PO DAILY, (Reported) Entered as Reported by: ADDIS ZAPATA on 02/13/221506 Last Action: Reviewed Pantoprazole Sodium (Pantoprazole Sodium) 40 Mg Tablet.dr, 40 MG PO HS, (Reported) Entered as Reported by: GENIA CODY on 11/26/21 1307 Last Action: Reviewed Potassium Chloride (Potassium Chloride) 20 Meq Tab.er.prt, 20 MEQ PO DAILY, (Reported) Entered as Reported by: ADDIS ZAPATA on 02/13/22 1507 Last Action: Reviewed Exam Vital Signs Vital Signs Date Time Temp Pulse Resp B/P (MAP) Pulse Ox O2 Delivery O2 Flow Rate FiO2 02/22/22 16:00 80 16 137/74 93 Mechanical Ventilator 55.00 02/22/22 15:32 37.7 02/22/22 14:53 55 Physical Exam General: Intubated and sedated. Well nourished and appears stated age. Eye: Conjunctivae are clear. There are no xanthelasma. HENT: Normocephalic. Atraumatic. Carotid pulsations 2/2 without bruits. Neck: Jugular venous pressure does not appear elevated. No thyromegaly appreciated. Respiratory: Symmetrical expansion bilaterally. Coarse breath sounds due to the ventilator. Cardiovascular: Normal rate. Regular rhythm. No murmur. No gallop. Point of maximal impulse is not appear displaced. Good pulses equal in all extremities. No edema. Gastrointestinal: Soft. Normal bowel sounds. Skin: Skin turgor is normal. There is no pallor. Musculoskeletal: No obvious deformities. Neurologic: Intubated and sedated. Psychiatric: Not obtainable due to clinical status. Labs Laboratory Tests Test 02/21/22 17:42 02/21/22 23:26 02/22/22 04:05 02/22/22 05:05 Range/Units Glucometer 172 H 220 H 70-110 MG/DL Blood Gas Puncture Site RIGHT RADIAL Blood Gas Patient Temperature 37 Arterial Blood pH 7.44 H 7.37-7.43 Arterial Blood Partial Pressure CO2 39 35-45 MMHG Arterial Blood Partial Pressure O2 82 79-93 MMHG Arterial Blood HCO3 26 23-27 MMOL/L Arterial Blood Total CO2 27.5 21.0-31.0 MMOL/L Arterial Blood Oxygen Saturation 96 94-100 % Arterial Blood Base Excess 2.5 -2.5-2.5 MMOL/L Jarad Test POSITIVE Blood Gas Ventilator Setting YES Blood Gas Inspired Oxygen 55 White Blood Count 5.9 4.3-11.0 10^3/uL Red Blood Count 4.13 L 4.30-5.52 10^6/uL Hemoglobin 12.4 L 13.3-17.7 g/dL Hematocrit 40 40-54 % Mean Corpuscular Volume 96 80-99 fL Mean Corpuscular Hemoglobin 30 25-34 pg Mean Corpuscular Hemoglobin Concent 31 L 32-36 g/dL Red Cell Distribution Width 16.6 H 10.0-14.5 % Platelet Count 176 130-400 10^3/uL Mean Platelet Volume 11.1 9.0-12.2 fL Immature Granulocyte % (Auto) 6 % Neutrophils (%) (Auto) 86 H 42-75 % Lymphocytes (%) (Auto) 3 L 12-44 % Monocytes (%) (Auto) 6 0-12 % Eosinophils (%) (Auto) 0 0-10 % Basophils (%) (Auto) 0 0-10 % Neutrophils # (Auto) 5.0 1.8-7.8 10^3/uL Lymphocytes # (Auto) 0.2 L 1.0-4.0 10^3/uL Monocytes # (Auto) 0.3 0.0-1.0 10^3/uL Eosinophils # (Auto) 0.0 0.0-0.3 10^3/uL Basophils # (Auto) 0.0 0.0-0.1 10^3/uL Immature Granulocyte # (Auto) 0.3 H 0.0-0.1 10^3/uL Neutrophils % (Manual) 90 % Lymphocytes % (Manual) 3 % Monocytes % (Manual) 7 % Anisocytosis SLIGHT Microcytosis SLIGHT Sodium Level 149 H 135-145 MMOL/L Potassium Level 3.3 L 3.6-5.0 MMOL/L Chloride Level 113 H 98-107 MMOL/L Carbon Dioxide Level 22 21-32 MMOL/L Anion Gap 14 5-14 MMOL/L Blood Urea Nitrogen 35 H 7-18 MG/DL Creatinine 0.72 0.60-1.30 MG/DL Estimat Glomerular Filtration Rate 101 BUN/Creatinine Ratio 49 Glucose Level 170 H 70-105 MG/DL Calcium Level 8.2 L 8.5-10.1 MG/DL Magnesium Level 2.7 H 1.6-2.4 MG/DL Test 02/22/22 11:20 Range/Units Glucometer 186 H 70-110 MG/DL Radiology ECHOCARDIOGRAM (02/14/2022): 1. Left ventricle: The cavity size is normal. Wall thickness is normal. Systolic function is normal. The estimated ejection fraction is 65-70%. There were no regional wall motion abnormalities identified. Doppler parameters are consistent with abnormal left ventricular relaxation (grade 1 diastolic dysfunction). 2. Left atrium: The atrium is mildly dilated. 3. Aortic valve: Thickening, consistent with sclerosis. 4. Pulmonary arteries: Systolic pressure is in the range of 70 mmHg to 75 mmHg. ECG Impression ECG Comment Electrocardiogram from this morning shows sinus rhythm with left atrial abnormality and possible old septal myocardial infarction. Diagnosis/Problems Diagnosis/Problems (1) Ventricular tachycardia Assessment & Plan: I suspect this was brought on by hypoxia that occurred during lightening of his sedation and weaning trials. He had an echocardiogram during this hospitalization that shows a normal ejection fraction. His magnesium level is normal but his potassium level is slightly low. I would try to keep his potassium level closer to 4. Continue diltiazem. He may need an ischemic evaluation once he recovers from this acute illness. 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 (2) Chronic heart failure with preserved ejection fraction (HFpEF) Assessment & Plan: His chest x-ray from this morning shows pulmonary congestion and a pleural effusion. I will give him 1 dose of IV Lasix. He has been taking oral Lasix while here in the hospital. (3) Pulmonary hypertension Assessment & Plan: He has severe pulmonary hypertension as noted on his echocardiogram earlier in this hospitalization. I suspect this is due to his chronic obstructive pulmonary disease and chronic hypoxic respiratory failure. He may benefit from home oxygen if he has not already been using this. He needs to quit smoking. (4) Primary hypertension Assessment & Plan: Continue diltiazem. He is receiving short acting diltiazem while he has been intubated. This can be changed back to diltiazem CD if and when he is extubated and can take oral medications. (5) Mixed hyperlipidemia Assessment & Plan: He was taking atorvastatin at home which I have reordered. (6) Acute and chronic respiratory failure with hypoxia Status: Acute Assessment & Plan: Most likely due to his chronic obstructive pulmonary disease and possibly a mild component of his chronic heart failure. The hospitalist and eICU are managing the ventilator. (7) Cigarette smoker Assessment & Plan: A needs to quit smoking. His was counseled in this regard. The patient will also need to be counseled. CAROL LEWIS JR, MD February 22, 2022 12:52
--- NOTE | 2022-02-22 13:14 | Consultation - Surgery ---
History of Present Illness History of Present Illness Patient Consulted On(ofelia/time) 02/22/22 13:07 Time Seen by Provider: 12:44 History of Present Illness Surgery asked to consult regarding possible Trach and Peg. HPI per ED: This is 66-year-old gentleman presents to the emergency room by private vehicle with complaints of left-sided pain from his neck down through the upper abdomen with coughing and deep breathing. He has had significant shortness of breath and wheezing for the past several days. It has been progressive and he is now barely able to even walk to the bathroom. He normally wears oxygen at 3 L/min by nasal cannula but has bumped it up to 4 L and is still struggling. He has been afebrile. His primary care provider is at the [facility] clinic in [place]. HPI per IM: 66 yo M with known severe COPD with baseline oxygen need. Patient states that about the last week he has been getting progressively short of breath and has had several attacks. States that in those attacks he was able to sit down and rest and take his inhalers and has felt better but last night that did not help. He is also complaining of rib and abdominal pain which he attributes to his coughing. Denies any chest pain, N/V. Denies any recent contacts and states that he stays at home and is not around many people. Denies missing any doses of his inhalers. No fevers or chills. Pt is currently intubated so this H&P obtained from chart and . His COPD got progressively worse and was intubated on Friday. IM does not think he will be able to be extubated and would like to get him to a LTAC for treatment. He needs trach and peg for that to happen. Allergies and Home Medications Allergies Coded Allergies: No Known Drug Allergies (Unverified , 11/26/21) Patient Home Medication List Home Medication List Reviewed: Yes Atorvastatin Calcium (Atorvastatin Calcium) 20 Mg Tablet, 20 MG PO DAILY, (Reported) Entered as Reported by: GENIA CODY on 11/26/21 1307 Last Action: Reviewed Diltiazem HCl (Diltiazem ER) 120 Mg Capsule.er, 120 MG PO DAILY, (Reported) Entered as Reported by: ADDIS ZAPATA on 02/13/22 1507 Last Action: Reviewed Ferrous Sulfate (Ferrous Sulfate) 325 Mg (65 Mg Iron) Tablet, 325 MG PO Q48H, (Reported) Entered as Reported by: ADDIS ZAPATA on 02/13/221506 Last Action: Reviewed Furosemide (Furosemide) 40 Mg Tablet, 40 MG PO DAILY, (Reported) Entered as Reported by: GENIA CODY on 11/26/211306 Last Action: Reviewed Guaifenesin (Mucinex) 1,200 Mg Tab.er.12h, 1,200 MG PO BID, (Reported) Entered as Reported by: GENIA CODY on 11/26/211306 Last Action: Reviewed Hydrocodone/Acetaminophen (Hydrocodone-Acetamin 7.5-325) 7.5 Mg-325 Mg Tablet, 1 EA PO Q8H PRN for PAIN-MODERATE (5-7), (Reported) Entered as Reported by: ADDIS ZAPATA on 02/13/221506 Last Action: Reviewed Ipratropium/Albuterol Sulfate (Iprat-Albut 0.5-3(2.5) mg/3 ml) 3 Ml Ampul.neb, 3 ML IH QID PRN for SHORTNESS OF BREATH, (Reported) Entered as Reported by: GENIA CODY on 11/26/211306 Last Action: Reviewed Magnesium Oxide (Magnesium Oxide) 400 Mg Tablet, 400 MG PO HS, (Reported) Entered as Reported by: ADDIS ZAPATA on 02/13/221506 Last Action: Reviewed Multivitamin (Multivitamin) 1 Each Tablet, 1 EACH PO DAILY, (Reported) Entered as Reported by: ADDIS ZAPATA on 02/13/221506 Last Action: Reviewed Pantoprazole Sodium (Pantoprazole Sodium) 40 Mg Tablet.dr, 40 MG PO HS, (Reported) Entered as Reported by: GENIA CODY on 11/26/211306 Last Action: Reviewed Potassium Chloride (Potassium Chloride) 20 Meq Tab.er.prt, 20 MEQ PO DAILY, (Reported) Entered as Reported by: ADDIS ZAPATA on 02/13/221506 Last Action: Reviewed Past Qxknrxk-Ccxyik-Eyqwma Hx Patient Social History Smoking Status: Current Everyday Smoker Type Used: Cigarettes Recent Hopitalizations: No Alcohol Use?: Yes Have you traveled recently?: No Immunizations Up To Date Date of Influenza Vaccine: Jul 26, 2021 Seasonal Allergies Seasonal Allergies: No Surgeries History of Surgeries: Yes Respiratory History of Respiratory Disorde: Yes Respiratory Disorders: COPD, Emphysema Cardiovascular History of Cardiac Disorders: Yes (CHF) Cardiac Disorders: Coronary Artery Disease, Heart Attack, High Cholesterol, Hypertension, Peripheral Vascular Neurological History of Neurological Disord: No Genitourinary History of Genitourinary Disor: Yes Genitourinary Disorders: Prostate Problems Gastrointestinal History of Gastrointestinal Di: Yes (HEP C) Gastrointestinal Disorders: Gastroesophageal Reflux Musculoskeletal History of Musculoskeletal Dis: Yes Musculoskeletal Disorders: Arthritis, Rheumatoid Arthritis Endocrine History of Endocrine Disorders: No HEENT History of HEENT Disorders: No Cancer History of Cancer: Yes Cancer: Prostate Psychosocial History of Psychiatric Problem: Yes Behavioral Health Disorders: Depression Integumentary History of Skin or Integumenta: No Family Medical History Significant Family History: COPD (mother), Diabetes (grandmother), Hypertension (mother) Review of Systems-General ROS-Unable to Obtain: pt intubated and sedated Respiratory: dyspnea on exertion, orthopnea, short of breath Physical Exam-General Problems Physical Exam Vital Signs Vital Signs - First Documented 02/16/22 00:00 Temp 36.6 Pulse 91 Resp 16 B/P (MAP) 145/97 Pulse Ox 94 O2 Delivery NIV Bilevel O2 Flow Rate 30.00 FiO2 35 Capillary Refill : Less Than 3 Seconds General Appearance: no apparent distress, other (pt sedated and intubated) Eyes: Bilateral Eye PERRL HEENT: other (ET tube in place) Respiratory: decreased breath sounds, accessory muscle use, crackles Cardiovascular: regular rate, rhythm, no murmur Gastrointestinal: soft Extremities: pedal edema Skin: normal color, warm/dry Lymphatic: no adenopathy (neck, axilla or groin) Data Review Labs Laboratory Tests 02/21/22 17:42: Glucometer 172H 02/21/22 23:26: Glucometer 220H 02/22/22 04:05: Blood Gas Puncture Site RIGHT RADIAL, Blood Gas Patient Temperature 37, Arterial Blood pH 7.44H, Arterial Blood Partial Pressure CO2 39, Arterial Blood Partial Pressure O2 82, Arterial Blood HCO3 26, Arterial Blood Total CO2 27.5, Arterial Blood Oxygen Saturation 96, Arterial Blood Base Excess 2.5, Jarad Test POSITIVE, Blood Gas Ventilator Setting YES, Blood Gas Inspired Oxygen 55 02/22/22 05:05: White Blood Count 5.9, Red Blood Count 4.13L, Hemoglobin 12.4L, Hematocrit 40, Mean Corpuscular Volume 96, Mean Corpuscular Hemoglobin 30, Mean Corpuscular Hemoglobin Concent 31L, Red Cell Distribution Width 16.6H, Platelet Count 176, Mean Platelet Volume 11.1, Immature Granulocyte % (Auto) 6, Neutrophils (%) (Auto) 86H, Lymphocytes (%) (Auto) 3L, Monocytes (%) (Auto) 6, Eosinophils (%) (Auto) 0, Basophils (%) (Auto) 0, Neutrophils # (Auto) 5.0, Lymphocytes # (Auto) 0.2L, Monocytes # (Auto) 0.3, Eosinophils # (Auto) 0.0, Basophils # (Auto) 0.0, Immature Granulocyte # (Auto) 0.3H, Neutrophils % (Manual) 90, Lymphocytes % (Manual) 3, Monocytes % (Manual) 7, Anisocytosis SLIGHT, Microcytosis SLIGHT, Sodium Level 149H, Potassium Level 3.3L, Chloride Level 113H, Carbon Dioxide Level 22, Anion Gap 14, Blood Urea Nitrogen 35H, Creatinine 0.72, Estimat Glomerular Filtration Rate 101, BUN/Creatinine Ratio 49, Glucose Level 170H, Calcium Level 8.2L, Magnesium Level 2.7H 02/22/22 11:20: Glucometer 186H Microbiology 02/17/22 Gram Stain - Final, Complete 02/17/22 Sputum Culture - Final, Complete Usual upper respiratory ravi 02/12/22 Blood Culture - Final, Complete No growth Radiology Date of Exam:02/12/22 CT ANGIO CHEST W PROCEDURE: CT angiography Chest TECHNIQUE: After intravenous administration of contrast, thin section axial CT angiography of the chest was performed. 3D MIP reconstructions were made. All CT scans use one or more of the following dose optimizing techniques: automated exposure control, MA and/or KvP adjustment based on a patient size and exam type, or iterative reconstruction. INDICATION: Chest pain, cough and shortness of air COMPARISON: Chest radiograph from earlier same day. FINDINGS: Vasculature: No pulmonary emboli. No CT evidence of pulmonary hypertension or right ventricular strain. Thoracic aorta is normal in caliber. No aortic dissection or pseudoaneurysm. Heart and mediastinum: Visualized thyroid is normal. No supraclavicular, axillary, or intra-thoracic lymphadenopathy. The heart is normal in size without pericardial effusion. Dense mitral annulus calcifications are present. Calcification is also present in the aortic valve leaflets. Pleura: Small left and trace right pleural effusions. Lungs and airway: Severe centrilobular emphysema is present. Bandlike opacities are present in the left apex with architectural distortion. There are few patchy centrilobular micro-nodules and groundglass in the left upper lobe as well. No interlobular septal thickening. Upper abdomen: Allowing for the phase of contrast, no acute abnormality in the upper abdomen is seen. Musculoskeletal: No concerning osseous lesion. IMPRESSION: 1. No pulmonary emboli or acute aortic syndrome. 2. Left upper lobe scattered centrilobular opacities and nodules are likely due to an infectious process. 3. Severe emphysema with left apical bandlike opacity and architectural distortion. This is likely due to an area of scar, but no prior imaging is available to document stability. Therefore, advise followup CT chest without contrast in 3 months to reassess 4. Small left and trace right pleural effusions. 5. Calcified aortic valve leaflets can be seen with aortic stenosis. Dictated by: Dictated on workstation # [id number] Dict: 02/12/22 1117 Trans: 02/12/22 1127 CVB [id number] Interpreted by: EDGAR ESCOBEDO MD Electronically signed by: EDGAR ESCOBEDO MD 02/12/22 1127 Assessment/Plan Assessment/Plan Assessment/Plan Respiratory Failure secondary to COPD exacerbation Malnutrition Pneumonia Hypertension Hyperlipidemia I had discussion with and son, explaining why we were thinking about possible Trach and PEG. He would come off sedation with trach and then be able to work with PT/OT, etc. We don't know if he will be able to swallow and early nutrition would help with recovery. I did talk to them about watching through the weekend and if he improves enough to be extubated or looks like he may be extubated soon; then we would hold off. Otherwise he is tentatively scheduled for Friday. They understood this and all questions answered to their satisfaction. Clinical Quality Measures AMI/AHF: ASA po Prior to arrival: FAN Lou DO February 22, 2022 13:14
[2022-02-22 14:53] VITALS: BP 134/70
[2022-02-22] MEDS ORDERED: FUROSEMIDE 40 MG/4 ML INJ (LASIX) IVP NR (17:00)
[2022-02-22 18:33] VITALS: BP 118/65
[2022-02-22] MEDS: ENOXAPARIN 40 MG/0.4 ML (LOVENOX) SYR SQ SCH (20:59)
[2022-02-22 21:57] VITALS: BP 110/64
[2022-02-23] MEDS: PROPOFOL DRIP (ICU) 100 ML IV SCH ×2 (00:15→04:33)
[2022-02-23] MEDS: DexMEDEtomidine 250 ML DRIP 250 ML IV SCH ×2 (00:16→07:42)
[2022-02-23] MEDS: inSUlin ASPART (NovoLOG) 1 UNIT/0.01 ML (CHARGE PER UNIT) SC SCH ×4 (00:16→17:11)
[2022-02-23] MEDS: fentaNYL DRIP PRE-MIX 250 ML IV SCH ×2 (01:05→04:32)
[2022-02-23 02:05] VITALS: BP 103/59
[2022-02-23] MEDS: RT-ALBUTEROL/IPRATROPIUM 3 ML (DUONEB) VIAL INH SCH ×6 (02:05→22:21)
[2022-02-23] MEDS: methylPREDNISolone 40 MG/ML (Solu-MEDROL) VIAL IV SCH ×3 (04:33→17:08)
[2022-02-23 04:47] LABS: BASOPHILS % (AUTO) 0 % (0-10); EOSINOPHILS % (AUTO) 0 % (0-10); HEMATOCRIT 37 % (40-54); LYMPHOCYTES # (AUTO) 0.3 10^3/uL (1.0-4.0); LYMPHOCYTES % (AUTO) 3 % (12-44); MEAN CORPUSCULAR HEMOGLOBIN 31 pg (25-34); MEAN CORPUSCULAR HGB CONC 33 g/dL (32-36); MEAN CORPUSCULAR VOLUME 96 fL (80-99); MEAN PLATELET VOLUME 10.9 fL (9.0-12.2); MONOCYTES # (AUTO) 0.6 10^3/uL (0.0-1.0); MONOCYTES % (AUTO) 6 % (0-12); NEUTROPHILS # (AUTO) 8.6 10^3/uL (1.8-7.8); NEUTROPHILS % (AUTO) 87 % (42-75); PLATELET COUNT 148 10^3/uL (130-400); WHITE BLOOD COUNT 9.9 10^3/uL (4.3-11.0)
[2022-02-23 04:56] LABS: POTASSIUM 3.2 MMOL/L (3.6-5.0)
[2022-02-23 04:57] LABS: CALCIUM 7.7 MG/DL (8.5-10.1)
[2022-02-23 05:02] LABS: CREATININE SERUM 0.83 MG/DL (0.60-1.30)
[2022-02-23 05:04] LABS: MAGNESIUM 2.4 MG/DL (1.6-2.4)
[2022-02-23] MEDS: MAGNESIUM 1 GM/100 ML IVPB 100 ML IV SCH (05:10)
[2022-02-23] MEDS: POTASSIUM CL 10MEQ/50ML IVPB 50 ML IV SCH ×5 (05:10→10:12)
[2022-02-23] MEDS: KCL 20 MEQ TAB (K-DUR) PO SCH (05:11)
[2022-02-23 05:38] LABS: ANISOCYTOSIS SLIGHT; ATYPICAL LYMPHOCYTES 3 %; EOSINOPHILS % (MANUAL) 1 %; LYMPHOCYTES % (MANUAL) 6 %; MICROCYTOSIS SLIGHT; MONOCYTES % (MANUAL) 3 %; NEUTROPHILS % (MANUAL) 87 %; POLYCHROMASIA SLIGHT
[2022-02-23 05:47] LABS: ABG OXYGEN SATURATION 96 % (94-100); ABG PCO2 43 MMHG (35-45); ABG PH 7.39 (7.37-7.43); ABG PO2 81 MMHG (79-93); ABG TCO2 26.6 MMOL/L (21.0-31.0); INSPIRED O2 50%
[2022-02-23 05:48] LABS: PATIENT TEMP 37.8; VENTILATOR NO
[2022-02-23] MEDS: CATHETER FLUSH 10 ML SYR IV SCH ×2 (05:49→15:38)
[2022-02-23 06:00] VITALS: BP 121/83
--- NOTE | 2022-02-23 06:37 | Progress Note - Hospitalist ---
Subjective HPI/CC On Admission Date Seen by Provider: February 23, 2022 Time Seen by Provider: 09:30 Subjective/Events-last exam Patient was extubated High risk for aspiration Bowels moved Family at bedside Review of Systems General: Fatigue Pulmonary: Dyspnea Objective Exam Vital Signs Vital Signs Date Time Temp Pulse Resp B/P (MAP) Pulse Ox O2 Delivery O2 Flow Rate FiO2 02/23/22 11:00 129 17 116/81 90 High Flow N/C 6.00 02/23/22 09:03 37.1 02/23/22 06:00 50 Capillary Refill : Less Than 3 Seconds General Appearance: WD/WN, Anxious, Chronically ill Respiratory: Accessory Muscle Use, Crackles, Decreased Breath Sounds, Rales Cardiovascular: Regular Rate, Rhythm Neurologic/Psychiatric: Alert, Oriented x3, No Motor/Sensory Deficits, Normal Mood/Affect Results/Procedures Lab Laboratory Tests 02/23/22 04:40 Patient resulted labs reviewed. 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 and intubation if needed per patient request Pneumonia Hypertension Hyperlipidemia Plan: ICU care Precedex BiPAP 02/17/2022: Intubated Appreciate eICU 02/18/2022: Supportive care Maintain intubation 02/19/22: Monitor closely 02/20/2022: Start tube feeds 02/21/2022: Appreciate ventilator management Poor prognosis 02/22/2022: Trach and PEG placement on Friday Poor prognosis 02/23/2022: Extubated End-stage COPD places patient at risk for recurrent respiratory failure Critical Care Ventilator Management Clinical Quality Measures AMI/AHF: ASA po Prior to arrival: CURTIS Patterson DO February 23, 2022 06:37
[2022-02-23 07:02] LABS: ABG BASE EXCESS 1.4 MMOL/L (-2.5-2.5); ABG OXYGEN SATURATION 96 % (94-100); ABG PCO2 42 MMHG (35-45); ABG PH 7.41 (7.37-7.43); ABG PO2 76 MMHG (79-93); ABG TCO2 26.7 MMOL/L (21.0-31.0)
[2022-02-23 07:04] LABS: ALLENS TEST POSITIVE; INSPIRED O2 50%; PATIENT TEMP 37.8; VENTILATOR YES
[2022-02-23] MEDS: PANTOPRAZOLE 40 MG (PROTONIX) VIAL IV SCH (07:42)
--- NOTE | 2022-02-23 07:49 | Diagnostic Imaging Report ---
EXAMINATION: Chest 1 view HISTORY: Intubation COMPARISON: 02/22/2022. FINDINGS: Heart size and pulmonary vasculature are stable. Medical support lines and tubes are unchanged. Stable small left pleural effusion with bibasilar interstitial opacities. Decreased right pleural effusion. The osseous structures are intact. IMPRESSION: 1. Stable left and decreased right pleural effusion. Stable bibasilar interstitial opacities. Dictated by: Dictated on workstation # [id number]
[2022-02-23] MEDS: NICOTINE PATCH REMOVAL TP SCH (09:25)
[2022-02-23] MEDS: FUROSEMIDE 40 MG (LASIX) TAB PO SCH (09:47)
[2022-02-23] MEDS: DOCUSATE SODIUM 10 MG/ML 10 ML UDC (COLACE) GT SCH ×2 (09:48→20:23)
[2022-02-23] MEDS: oxyCODONE ER 10 MG (OxyCONTIN CR) TAB PO SCH (09:48)
[2022-02-23] MEDS: guaiFENesin (MUCINEX) 600 MG TAB PO SCH (09:48)
[2022-02-23] MEDS: polyethylene glycoL POWDER 17 GM (MIRALAX) PACK PO SCH ×2 (09:48→20:24)
--- NOTE | 2022-02-23 09:52 | Cardiology Progress Note ---
Progress Note-Cardiology Events since last exam Date Seen by Provider: February 23, 2022 Time Seen by Provider: 09:47 Events since last exam I am following him due to nonsustained ventricular tachycardia. He remains in the intensive care unit. He was extubated this morning. He is on nasal cannula oxygen. He still feels fairly short of breath. He denies chest pain, palpitations, syncope, or ankle edema. Certain portions of this document may have been dictated utilizing voice recognition technology. Inherent to this technology, typographical and grammatical errors may exist. As much as I am diligent to identify and correct these mistakes, some errors may remain in the document. Vitals Last set of Vitals Signs Vital Signs 02/23/22 02/23/22 02/23/22 06:00 09:00 09:03 Temp 37.1 Pulse 76 Resp 17 B/P (MAP) 112/67 Pulse Ox 91 O2 Delivery High Flow N/C O2 Flow Rate 6.00 FiO2 50 Labs Labs Laboratory Tests 02/23/22 04:40 Exam Vital Signs Vital Signs Date Time Temp Pulse Resp B/P (MAP) Pulse Ox O2 Delivery O2 Flow Rate FiO2 02/23/22 09:03 37.1 02/23/22 09:00 76 17 112/67 91 High Flow N/C 6.00 02/23/22 06:00 50 Physical Exam General: Alert. No acute distress. He is obese. He is wearing oxygen by nasal cannula. Eye: No xanthelasma. HENT: Normocephalic. Neck: Jugular venous pressure does not appear elevated. Respiratory: Lungs have diffuse inspiratory wheezes. Respirations are non- labored. Breath sounds are equal. Symmetrical chest wall expansion. Cardiovascular: Normal rate. Regular rhythm. Distant S1/S2. No murmur. No gallop. No edema. Gastrointestinal: Soft. Normal bowel sounds. Skin: Warm. Dry. Neurologic: Alert and oriented to person and time but not place. Cranial nerves 3-11 grossly intact. Psychiatric: Cooperative. Appropriate mood & affect. Labs Laboratory Tests Test 02/22/22 11:20 02/22/22 17:42 02/23/22 00:12 02/23/22 04:40 Range/Units Glucometer 186 H 187 H 154 H 70-110 MG/DL White Blood Count 9.9 4.3-11.0 10^3/uL Red Blood Count 3.82 L 4.30-5.52 10^6/uL Hemoglobin 12.0 L 13.3-17.7 g/dL Hematocrit 37 L 40-54 % Mean Corpuscular Volume 96 80-99 fL Mean Corpuscular Hemoglobin 31 25-34 pg Mean Corpuscular Hemoglobin Concent 33 32-36 g/dL Red Cell Distribution Width 16.8 H 10.0-14.5 % Platelet Count 148 130-400 10^3/uL Mean Platelet Volume 10.9 9.0-12.2 fL Immature Granulocyte % (Auto) 4 % Neutrophils (%) (Auto) 87 H 42-75 % Lymphocytes (%) (Auto) 3 L 12-44 % Monocytes (%) (Auto) 6 0-12 % Eosinophils (%) (Auto) 0 0-10 % Basophils (%) (Auto) 0 0-10 % Neutrophils # (Auto) 8.6 H 1.8-7.8 10^3/uL Lymphocytes # (Auto) 0.3 L 1.0-4.0 10^3/uL Monocytes # (Auto) 0.6 0.0-1.0 10^3/uL Eosinophils # (Auto) 0.0 0.0-0.3 10^3/uL Basophils # (Auto) 0.0 0.0-0.1 10^3/uL Immature Granulocyte # (Auto) 0.4 H 0.0-0.1 10^3/uL Neutrophils % (Manual) 87 % Lymphocytes % (Manual) 6 % Monocytes % (Manual) 3 % Eosinophils % (Manual) 1 % Atypical Lymphocytes 3 % Polychromasia SLIGHT Anisocytosis SLIGHT Microcytosis SLIGHT Sodium Level 147 H 135-145 MMOL/L Potassium Level 3.2 L 3.6-5.0 MMOL/L Chloride Level 111 H 98-107 MMOL/L Carbon Dioxide Level 21 21-32 MMOL/L Anion Gap 15 H 5-14 MMOL/L Blood Urea Nitrogen 38 H 7-18 MG/DL Creatinine 0.83 0.60-1.30 MG/DL Estimat Glomerular Filtration Rate 97 BUN/Creatinine Ratio 46 Glucose Level 216 H 70-105 MG/DL Calcium Level 7.7 L 8.5-10.1 MG/DL Magnesium Level 2.4 1.6-2.4 MG/DL Test 02/23/22 05:17 02/23/22 06:45 Range/Units Blood Gas Puncture Site RIGHT RADIAL RIGHT RADIAL Blood Gas Patient Temperature 37.8 37.8 Arterial Blood pH 7.39 7.41 7.37-7.43 Arterial Blood Partial Pressure CO2 43 42 35-45 MMHG Arterial Blood Partial Pressure O2 81 76 L 79-93 MMHG Arterial Blood HCO3 25 26 23-27 MMOL/L Arterial Blood Total CO2 26.6 26.7 21.0-31.0 MMOL/L Arterial Blood Oxygen Saturation 96 96 94-100 % Arterial Blood Base Excess 1.0 1.4 -2.5-2.5 MMOL/L Jarad Test UNKNOWN POSITIVE Blood Gas Ventilator Setting NO YES Blood Gas Inspired Oxygen 50% 50% Diagnosis/Problems Diagnosis/Problems (1) Ventricular tachycardia Assessment & Plan: I suspect this was brought on by hypoxia that occurred during lightening of his sedation and weaning trials. He had an echocardiogram during this hospitalization that shows a normal ejection fraction. His magnesium level is normal but his potassium level was slightly low. I would try to keep his potassium level closer to 4. Continue diltiazem. He may need an ischemic evaluation once he recovers from this acute illness. 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 (2) Chronic heart failure with preserved ejection fraction (HFpEF) Assessment & Plan: His chest x-ray from this morning shows improvement in the pleural effusions following 1 dose of intravenous Lasix on 02/22. I will give him 1 more dose of IV Lasix. His oral Lasix is on hold for the time being and to the nurses have a better idea about his aspiration risk following extubation earlier this morning. (3) Pulmonary hypertension Assessment & Plan: He has severe pulmonary hypertension as noted on his echocardiogram earlier in this hospitalization. I suspect this is due to his chronic obstructive pulmonary disease and chronic hypoxic respiratory failure. He may benefit from home oxygen if he has not already been using this. He needs to quit smoking. (4) Primary hypertension Assessment & Plan: Continue diltiazem. He has been receiving short acting diltiazem while he was intubated. This can be changed back to diltiazem CD once he has been cleared from an aspiration risk. (5) Mixed hyperlipidemia Assessment & Plan: He was taking atorvastatin at home which should be continued. (6) Acute and chronic respiratory failure with hypoxia Status: Acute Assessment & Plan: Most likely due to his chronic obstructive pulmonary disease and possibly a mild component of his chronic heart failure. The hospitalist and eICU are managing his pulmonary status. (7) Cigarette smoker Assessment & Plan: He needs to quit smoking. He seems to understand that this will be imperative. He stated that he is done with smoking. CAROL LEWIS JR, MD February 23, 2022 09:52
[2022-02-23] MEDS ORDERED: FUROSEMIDE 40 MG/4 ML INJ (LASIX) IVP NR (10:00)
--- NOTE | 2022-02-23 10:08 | Tele-ICU Progress Note ---
Subjective Date Seen by a Provider: February 23, 2022 Time Seen by a Provider: 08:00 Subjective/Events-last exam This virtual visit was conducted using real time audio/video. Thank you for asking us to see this patient for respiratory insufficiency due to AECOPD, pna. Pt intubated 02/18/2020 and extubated on my order 02/23 at approx 0715. PE: Appears comfortable on camera.. VSS. O2 sat 90% on 6 LPM NC. HEENT: No obvious masses, adenopathy or JVD. Chest: Diminished breath sounds. CV: RRR S1 S2 No murmur or added sounds. Abd: Non-tender. Bowel sounds Y. : Unremarkable. Vanessa Y. [employer] WORKER/psychiatric: Grossly intact. No obvious focal findings. Extremities: No edema. Capillary refill < 3 seconds. Skin: unremarkable. Results: Decreased Hb 12, K 3.2. Elevated Na 147 BUN 34, BG 216. ABG: CXR: hyperinflated w bibasilar infilts R>L, somewhat decreased. CTAC neg for PE. Available chart/ vitals / labs / images reviewed. Video assessment done using teleICU camera, rest of exam as per RN. A/P: Respiratory insufficiency: Continue present management with NC, medrol, duonebs. Monitor for increasing oxygenation needs/need for reintubation. Possible transfer to floor on PMs if he continues to do well. Consider stopping Medrol and giving Prednisone PO 40 mg/day for 5 days. Critical Care: critically ill patient. Cont. promise., Dilt., PPI,, nicotine patch, nicotine patch. SSI. Hold lasix w rising BUN, Na. Gonzalez K. Discussed with CHAYITO Ayala and RT. Asked RN to reach out to eICU if any questions or concerns later. Time spent with patient/coordination of care with other health professionals (mins):33 Sepsis Event Evaluation Height, Weight, BMI Height: '" Weight: lbs. oz. kg; 30.04 BMI Method: Exam Exam Patient acknowledged, consented, and participated in this virtual visit which was conducted using real time audio/video Vital Signs Date Time Temp Pulse Resp B/P (MAP) Pulse Ox O2 Delivery O2 Flow Rate FiO2 02/23/22 09:03 37.1 02/23/22 09:00 76 17 112/67 91 High Flow N/C 6.00 02/23/22 08:00 75 24 109/65 90 High Flow N/C 6.00 02/23/22 07:46 94 High Flow N/C 02/23/22 07:42 72 139/74 02/23/22 07:26 92 High Flow N/C 6.00 02/23/22 07:00 72 02/23/22 07:00 73 10 139/74 93 Mechanical Ventilator 50.00 02/23/22 06:00 76 10 96 50 02/23/22 06:00 71 16 121/83 94 Mechanical Ventilator 50.00 02/23/22 05:40 71 20 95 02/23/22 05:00 69 16 125/65 95 Mechanical Ventilator 50.00 02/23/22 04:33 72 113/62 02/23/22 04:00 93 Mechanical Ventilator 60 02/23/22 04:00 37.8 02/23/22 04:00 76 16 104/62 91 Mechanical Ventilator 50.00 02/23/22 03:00 78 16 104/59 92 Mechanical Ventilator 50.00 02/23/22 02:10 77 16 93 Mechanical Ventilator 50.00 02/23/22 02:05 77 18 93 55 02/23/22 02:00 77 16 103/59 93 Mechanical Ventilator 60.00 02/23/22 01:00 81 16 102/57 93 Mechanical Ventilator 60.00 02/23/22 01:00 81 02/23/22 00:16 89 107/59 02/23/22 00:15 88 107/59 02/23/22 00:00 88 20 98/53 92 Mechanical Ventilator 60.00 02/23/22 00:00 93 Mechanical Ventilator 60 02/23/22 00:00 37.9 02/22/22 23:15 84 16 101/63 90 Mechanical Ventilator 60.00 02/22/22 23:00 84 16 95/61 91 Mechanical Ventilator 55.00 02/22/22 22:00 84 16 110/64 93 Mechanical Ventilator 55.00 02/22/22 21:57 82 22 93 55 02/22/22 21:19 80 113/67 02/22/22 21:00 81 16 107/64 93 Mechanical Ventilator 55.00 02/22/22 20:00 80 16 93/62 92 Mechanical Ventilator 55.00 02/22/22 20:00 93 Mechanical Ventilator 55 02/22/22 19:56 37.0 02/22/22 19:00 80 16 108/64 92 Mechanical Ventilator 55.00 02/22/22 19:00 80 02/22/22 18:33 79 16 94 55 02/22/22 18:00 80 16 134/69 93 Mechanical Ventilator 55.00 02/22/22 17:05 81 140/71 02/22/22 17:04 80 140/71 02/22/22 17:00 80 13 140/71 92 Mechanical Ventilator 55.00 02/22/22 16:00 80 16 137/74 93 Mechanical Ventilator 55.00 02/22/22 16:00 93 Mechanical Ventilator 55 02/22/22 15:32 37.7 02/22/22 15:00 80 16 137/73 94 Mechanical Ventilator 55.00 02/22/22 14:53 79 16 93 55 02/22/22 14:00 81 16 138/71 93 Mechanical Ventilator 55.00 02/22/22 13:54 136/71 02/22/22 13:00 77 16 134/71 93 Mechanical Ventilator 55.00 02/22/22 12:35 79 02/22/22 12:00 80 16 142/75 93 Mechanical Ventilator 55.00 02/22/22 12:00 93 Mechanical Ventilator 55 02/22/22 11:19 145/74 02/22/22 11:00 81 16 145/76 92 Mechanical Ventilator 55.00 I & O 02/23/22 06:59 Intake Total 2800 ml Output Total 4620 ml Balance -1820 ml Height & Weight Height: '" Weight: lbs. oz. kg; 30.04 BMI Method: General Appearance: No Apparent Distress, WD/WN, Chronically ill, Obese, Other (Intubated and sedated) HEENT: PERRL/EOMI, Normal ENT Inspection Neck: Normal Inspection; No JVD Respiratory: Decreased Breath Sounds Cardiovascular: Regular Rate, Rhythm Capillary Refill: Less Than 3 Seconds Gastrointestinal: soft Extremity: Normal Inspection, Non Tender, No Pedal Edema Neurologic/Psychiatric: Alert, Oriented x3 Skin: Normal Color, Warm/Dry Results Lab Laboratory Tests 02/22/22 05:05 02/23/22 04:40 Assessment/Plan Assessment/Plan See free text Critical Care: Ventilator Management MARGARITA PETTY MD February 23, 2022 10:08
[2022-02-23] MEDS: NICOTINE 21 MG (NICODERM) PATCH TD SCH (10:12)
[2022-02-23] MEDS ORDERED: AMIODARONE (BOLUS) 150 MG/3 ML IV ONE (11:22)
[2022-02-23] MEDS ORDERED: AMIODARONE 450 MG/9 ML (CORDARONE) VIAL IV ONE (11:22)
[2022-02-23] MEDS ORDERED: D5W 100 ML IVPB 100 ML IV ONE (11:23)
[2022-02-23] MEDS ORDERED: D5W IV SOLUTION (EXCEL) 250 ML IV ONE (11:23)
[2022-02-23] MEDS ORDERED: AMIODARONE FOR BOLUS 150 MG in NS (IVPB) 100 ML IV ONE ×2 (11:30→13:45)
[2022-02-23] MEDS ORDERED: AMIODARONE FOR BOLUS 150 MG in NS (IVPB) 100 ML IV NR (11:30)
[2022-02-23] MEDS ORDERED: AMIODARONE INJECTION 450 MG in D5W IV SOLUTION (EXCEL) 250 ML IV SCH ×4 (11:30)
[2022-02-23] MEDS ORDERED: dilTIAZem DRIP PRE-MIX 125 ML IV ONE (11:41)
[2022-02-23] MEDS: dilTIAZem DRIP PRE-MIX 125 ML IV SCH ×2 (12:08→19:15)
[2022-02-23] MEDS: AMIODARONE INJECTION 450 MG in D5W IV SOLUTION (EXCEL) 250 ML IV SCH ×2 (12:34→19:16)
[2022-02-23] MEDS ORDERED: NS IV 1000 ML 1,000 ML ONE (15:40)
[2022-02-23] MEDS ORDERED: proPOfol 200 MG/20 ML (DIPRIVAN) VIAL IV ONE (15:54)
--- NOTE | 2022-02-23 16:11 | Cardiac Procedure Note ---
Cardiology Procedures Date of Procedure 02/23/22 DIRECT-CURRENT CARDIOVERSION INDICATION: Paroxysmal atrial fibrillation. PROCEDURE: After informed consent and in the fasting state, deep sedation was provided by the anesthesia department. I subsequently performed direct-current cardioversion with 1 synchronized, biphasic shock at 120 J with successful conversion of atrial fibrillation to sinus rhythm. He did have some intermittent salvos of atrial fibrillation following the procedure but appears to be maintaining sinus rhythm the majority of the time. IMPRESSION: 1. Status post successful direct-current cardioversion with 1 synchronized biphasic shock at 120 J with successful conversion of atrial fibrillation to sinus rhythm. Certain portions of this document may have been dictated utilizing voice recognition technology. Inherent to this technology, typographical and grammatical errors may exist. As much as I am diligent to identify and correct these mistakes, some errors may remain in the document. CAROL LEWIS JR, MD February 23, 2022 16:11
--- NOTE | 2022-02-23 19:26 | Tele-ICU Progress Note ---
Subjective Date Seen by a Provider: February 23, 2022 Time Seen by a Provider: 19:24 Subjective/Events-last exam pt doesnt appear to be comfortable on vapotherm Sepsis Event Evaluation Height, Weight, BMI Height: '" Weight: lbs. oz. kg; 30.04 BMI Method: Exam Exam Patient acknowledged, consented, and participated in this virtual visit which was conducted using real time audio/video Vital Signs Date Time Temp Pulse Resp B/P (MAP) Pulse Ox O2 Delivery O2 Flow Rate FiO2 02/23/22 18:41 90 Vapotherm 30.00 70 02/23/22 18:00 152 14 104/90 91 High Flow N/C 10.00 02/23/22 17:00 124 14 100/61 93 High Flow N/C 10.00 02/23/22 16:00 115 23 90/72 96 High Flow N/C 10.00 02/23/22 15:34 96 Vapotherm 30.00 70 02/23/22 15:00 140 19 117/87 97 High Flow N/C 10.00 02/23/22 14:39 96 Vapotherm 30.00 70 02/23/22 14:00 165 26 99/71 88 High Flow N/C 10.00 02/23/22 13:45 108 113/95 02/23/22 13:00 110 23 113/95 90 High Flow N/C 10.00 02/23/22 13:00 108 02/23/22 12:08 129 116/81 02/23/22 12:00 104 9 133/94 90 High Flow N/C 10.00 02/23/22 12:00 92 High Flow N/C 8.00 02/23/22 12:00 High Flow N/C 10.00 02/23/22 11:59 36.2 02/23/22 11:00 129 17 116/81 90 High Flow N/C 6.00 02/23/22 10:25 92 High Flow N/C 6.00 02/23/22 10:00 70 11 136/84 96 High Flow N/C 6.00 02/23/22 09:03 37.1 02/23/22 09:00 76 17 112/67 91 High Flow N/C 6.00 02/23/22 08:00 75 24 109/65 90 High Flow N/C 6.00 02/23/22 07:46 94 High Flow N/C 02/23/22 07:42 72 139/74 02/23/22 07:26 92 High Flow N/C 6.00 02/23/22 07:00 72 02/23/22 07:00 73 10 139/74 93 Mechanical Ventilator 50.00 02/23/22 06:00 76 10 96 50 02/23/22 06:00 71 16 121/83 94 Mechanical Ventilator 50.00 02/23/22 05:40 71 20 95 02/23/22 05:00 69 16 125/65 95 Mechanical Ventilator 50.00 02/23/22 04:33 72 113/62 02/23/22 04:00 93 Mechanical Ventilator 60 02/23/22 04:00 37.8 02/23/22 04:00 76 16 104/62 91 Mechanical Ventilator 50.00 02/23/22 03:00 78 16 104/59 92 Mechanical Ventilator 50.00 02/23/22 02:10 77 16 93 Mechanical Ventilator 50.00 02/23/22 02:05 77 18 93 55 02/23/22 02:00 77 16 103/59 93 Mechanical Ventilator 60.00 02/23/22 01:00 81 16 102/57 93 Mechanical Ventilator 60.00 02/23/22 01:00 81 02/23/22 00:16 89 107/59 02/23/22 00:15 88 107/59 02/23/22 00:00 88 20 98/53 92 Mechanical Ventilator 60.00 02/23/22 00:00 93 Mechanical Ventilator 60 02/23/22 00:00 37.9 02/22/22 23:15 84 16 101/63 90 Mechanical Ventilator 60.00 02/22/22 23:00 84 16 95/61 91 Mechanical Ventilator 55.00 02/22/22 22:00 84 16 110/64 93 Mechanical Ventilator 55.00 02/22/22 21:57 82 22 93 55 02/22/22 21:19 80 113/67 02/22/22 21:00 81 16 107/64 93 Mechanical Ventilator 55.00 02/22/22 20:00 80 16 93/62 92 Mechanical Ventilator 55.00 02/22/22 20:00 93 Mechanical Ventilator 55 02/22/22 19:56 37.0 I & O 02/23/22 07:00 Intake Total 2800 ml Output Total 4620 ml Balance -1820 ml Height & Weight Height: '" Weight: lbs. oz. kg; 30.04 BMI Method: General Appearance: WD/WN, Anxious, Chronically ill HEENT: PERRL/EOMI, Normal ENT Inspection Neck: Normal Inspection; No JVD Respiratory: Accessory Muscle Use, Crackles, Decreased Breath Sounds, Rales, Respiratory Distress Cardiovascular: Regular Rate, Rhythm Capillary Refill: Less Than 3 Seconds Gastrointestinal: soft Extremity: Normal Inspection, Non Tender, No Pedal Edema Neurologic/Psychiatric: Alert, Oriented x3, No Motor/Sensory Deficits, Normal Mood/Affect Skin: Normal Color, Warm/Dry Results Lab Laboratory Tests 02/22/22 05:05 02/23/22 04:40 Assessment/Plan Assessment/Plan Acute on chronic resp failure -copds/ a fib with rvr failed cardioversion -ro vte - pt on steroids/ duo nebs/ dvt prophylaxis -check d dimer/ duplex of lower exr -abg ordered bipap to be attempted with the intent to prevent invasive mechanical ventilation pt was visualzied; dw bed side rn and teleicu rn chart was reviewed DOMINIC GROVES MD February 23, 2022 19:26
[2022-02-23] MEDS ORDERED: PHENYLEPHRINE IV ONE (19:40)
[2022-02-23 19:41] VITALS: BP 98/67
[2022-02-23] MEDS ORDERED: PHENYLEPHRINE INJECTION 10 MG in NS (IVPB) 250 ML IV SCH (19:45)
[2022-02-23] MEDS ORDERED: NORMAL SALINE 250 ML ONE ×2 (19:48)
[2022-02-23] MEDS ORDERED: PHENYLEPHRINE INJ 10 MG/ML (FOR PYXIS KITS ONLY) ONE (19:48)
[2022-02-23 20:14] LABS: ABG OXYGEN SATURATION 97 % (94-100); ABG PCO2 36 MMHG (35-45); ABG PH 7.48 (7.37-7.43); ABG PO2 79 MMHG (79-93); ABG TCO2 27.4 MMOL/L (21.0-31.0); ALLENS TEST POSITIVE; INSPIRED O2 70% BIPAP; VENTILATOR NO
[2022-02-23 20:15] LABS: PATIENT TEMP 36.9
--- NOTE | 2022-02-23 21:46 | Diagnostic Imaging Report ---
Clinical indication: Patient with pneumonia and COPD exacerbation. Comparison: None. Procedure: Ultrasound venous ultrasound of the bilateral lower extremities with multiple real-time grayscale images were obtained in various projections. Additional spectral analysis and color Doppler duplex images were also obtained. Findings: The deep venous system is well visualized and is easily compressible. There is no evidence of deep venous thrombosis, valvular incompetence, or significant collateral circulation. There is no fluid collection in the popliteal fossa regions. Impression: There is no ultrasound Doppler evidence of deep venous thrombosis in the bilateral lower extremities. Dictated by: Dictated on workstation # [id number]
[2022-02-23 22:22] VITALS: BP 126/94
[2022-02-24] MEDS: guaiFENesin (MUCINEX) 600 MG TAB PO SCH ×3 (00:48→20:52)
[2022-02-24] MEDS: oxyCODONE ER 10 MG (OxyCONTIN CR) TAB PO SCH ×3 (00:48→20:53)
[2022-02-24] MEDS: ENOXAPARIN 40 MG/0.4 ML (LOVENOX) SYR SQ SCH ×2 (00:49→20:53)
[2022-02-24] MEDS: CEFEPIME INJECTION 1,000 MG in NS (IVPB) 50 ML IV SCH ×5 (00:50→20:53)
[2022-02-24] MEDS: CATHETER FLUSH 10 ML SYR IV SCH ×4 (00:50→20:53)
[2022-02-24] MEDS: methylPREDNISolone 40 MG/ML (Solu-MEDROL) VIAL IV SCH ×2 (00:50→04:55)
[2022-02-24] MEDS: dilTIAZem DRIP PRE-MIX 125 ML IV SCH ×2 (00:51→06:48)
[2022-02-24] MEDS: RT-ALBUTEROL/IPRATROPIUM 3 ML (DUONEB) VIAL INH SCH ×6 (02:44→21:44)
[2022-02-24] MEDS: HYDROcodone/APAP 7.5 MG/325 MG (LORTAB, LORCET PLUS) TABLET PO PRN ×2 (04:55→12:41)
[2022-02-24] MEDS: inSUlin ASPART (NovoLOG) 1 UNIT/0.01 ML (CHARGE PER UNIT) SC SCH ×4 (04:56→17:40)
[2022-02-24 05:42] LABS: POTASSIUM 2.9 MMOL/L (3.6-5.0)
[2022-02-24 05:43] LABS: CALCIUM 8.3 MG/DL (8.5-10.1)
[2022-02-24 05:47] LABS: CREATININE SERUM 0.68 MG/DL (0.60-1.30)
[2022-02-24 05:50] LABS: MAGNESIUM 2.4 MG/DL (1.6-2.4)
--- NOTE | 2022-02-24 06:59 | Progress Note - Hospitalist ---
Subjective HPI/CC On Admission Date Seen by Provider: February 24, 2022 Time Seen by Provider: 10:00 Subjective/Events-last exam Patient doing a lot better this morning Had episode of A. fib with RVR requiring amiodarone and attempted cardioversion Spontaneously converted to normal sinus rhythm at 0300 Less secretions noted Lungs much improved Family at the bedside Will continue care in the ICU due to arrhythmia but hopefully tomorrow move to fourth floor Review of Systems General: Fatigue, Malaise Pulmonary: Dyspnea, Cough Focused Exam Lactate Level 02/23/22 19:44: Lactic Acid Level 1.78 Objective Exam Vital Signs Vital Signs Date Time Temp Pulse Resp B/P (MAP) Pulse Ox O2 Delivery O2 Flow Rate FiO2 02/25/22 04:00 96 Vapotherm 30.00 60 02/25/22 03:15 91 20 118/67 02/24/22 19:33 36.6 Capillary Refill : Less Than 3 Seconds General Appearance: Anxious, Chronically ill, Mild Distress Respiratory: No Accessory Muscle Use, No Respiratory Distress, Accessory Muscle Use, Decreased Breath Sounds Cardiovascular: Regular Rate, Rhythm Neurologic/Psychiatric: Alert, Oriented x3, No Motor/Sensory Deficits, Normal Mood/Affect Results/Procedures Lab Patient resulted labs reviewed. 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 and intubation if needed per patient request Pneumonia Hypertension Hyperlipidemia Atrial fibrillation with RVR status post conversion to normal sinus rhythm spontaneously on amiodarone drip Plan: ICU care Precedex BiPAP 02/17/2022: Intubated Appreciate eICU 02/18/2022: Supportive care Maintain intubation 02/19/22: Monitor closely 02/20/2022: Start tube feeds 02/21/2022: Appreciate ventilator management Poor prognosis 02/22/2022: Trach and PEG placement on Friday Poor prognosis 02/23/2022: Extubated End-stage COPD places patient at risk for recurrent respiratory failure 02/24/2022: Supportive care Appreciate cardiology Critical Care Ventilator Management Clinical Quality Measures AMI/AHF: ASA po Prior to arrival: No CURTIS MOSLEY DO February 24, 2022 06:59
[2022-02-24] MEDS: MAGNESIUM 1 GM/100 ML IVPB 100 ML IV SCH (07:02)
--- NOTE | 2022-02-24 07:17 | Diagnostic Imaging Report ---
INDICATION: Respiratory difficulty. Compared is made with prior exam of 02/23/2022. FINDINGS: There is cardiomegaly. There is is left basilar atelectasis and/or pneumonitis and small pleural effusion. No pneumothorax. Mediastinum is unremarkable. IMPRESSION: Left basilar atelectasis and/or pneumonitis and small left pleural effusion. Dictated by: Dictated on workstation # [id number]
[2022-02-24] MEDS ORDERED: KCL 20 MEQ TAB (K-DUR) PO NR ×3 (07:30→11:30)
[2022-02-24] MEDS: POTASSIUM CL 10MEQ/50ML IVPB 50 ML IV SCH (07:34)
[2022-02-24] MEDS: KCL 20 MEQ TAB (K-DUR) PO SCH (07:35)
[2022-02-24] MEDS: PROPOFOL DRIP (ICU) 100 ML IV SCH ×2 (07:35→16:29)
[2022-02-24] MEDS: polyethylene glycoL POWDER 17 GM (MIRALAX) PACK PO SCH (07:36)
[2022-02-24] MEDS: DOCUSATE SODIUM 10 MG/ML 10 ML UDC (COLACE) GT SCH (07:36)
[2022-02-24] MEDS: PANTOPRAZOLE 40 MG (PROTONIX) VIAL IV SCH (07:43)
[2022-02-24] MEDS: FUROSEMIDE 40 MG (LASIX) TAB PO SCH (07:43)
[2022-02-24] MEDS: NICOTINE 21 MG (NICODERM) PATCH TD SCH (07:51)
[2022-02-24] MEDS: NICOTINE PATCH REMOVAL TP SCH (07:51)
[2022-02-24] MEDS: AMIODARONE 200 MG (CORDARONE) TAB PO SCH ×2 (09:09→20:52)
[2022-02-24] MEDS: morphine INJ 4 MG/ML 1 ML (VIAL/SYRINGE) IVP PRN ×5 (09:16→18:07)
--- NOTE | 2022-02-24 09:19 | Cardiology Progress Note ---
Progress Note-Cardiology Events since last exam Date Seen by Provider: February 24, 2022 Time Seen by Provider: 09:14 Events since last exam I was initially seeing him due to nonsustained ventricular tachycardia and then on 02/23 he developed atrial fibrillation. I had him undergo a cardioversion on 02/23 due to persistent tachycardia. Overnight he has remained in sinus rhythm on amiodarone infusion and short acting oral diltiazem. He was also receiving intravenous diltiazem. This morning he is sitting up in bed in the intensive care unit. He states his breathing is improved. He is adamant that he will quit smoking. He complains of pain all over his body which is a chronic issue for him. He denies chest pain, per se. He denies palpitations, syncope, or ankle edema. Certain portions of this document may have been dictated utilizing voice recognition technology. Inherent to this technology, typographical and grammatical errors may exist. As much as I am diligent to identify and correct these mistakes, some errors may remain in the document. Vitals Last set of Vitals Signs Vital Signs 02/24/22 02/24/22 02/24/22 07:51 07:57 08:00 Temp 37.2 Pulse 90 Resp 17 B/P (MAP) 129/44 Pulse Ox 95 O2 Delivery Vapotherm O2 Flow Rate 30.00 70.00 FiO2 70 Labs Labs Laboratory Tests 02/24/22 05:10 Exam Vital Signs Vital Signs Date Time Temp Pulse Resp B/P (MAP) Pulse Ox O2 Delivery O2 Flow Rate FiO2 02/24/22 08:00 90 17 129/44 95 Vapotherm 30.00 70.00 02/24/22 07:57 70 02/24/22 07:51 37.2 Physical Exam General: Alert. No acute distress. He is obese. He is wearing oxygen by nasal cannula. Eye: No xanthelasma. HENT: Normocephalic. Neck: Jugular venous pressure does not appear elevated. Respiratory: Lungs have diffusely decreased breath sounds with some scattered wheezes, slightly improved from 1 day prior. Respirations are non-labored. Breath sounds are equal. Symmetrical chest wall expansion. Cardiovascular: Normal rate. Regular rhythm. No murmur. No gallop. No edema. Gastrointestinal: Soft. Normal bowel sounds. Skin: Warm. Dry. Neurologic: Alert and oriented to person, place, time. Cranial nerves 3-11 grossly intact. Psychiatric: Cooperative. Appropriate mood & affect. Labs Laboratory Tests Test 02/23/22 12:53 02/23/22 17:11 02/23/22 19:44 02/23/22 20:09 Range/Units Glucometer 156 H 161 H 70-110 MG/DL D-Dimer 2.04 H 0.00-0.49 UG/ML Lactic Acid Level 1.78 0.50-2.00 MMOL/L Blood Gas Puncture Site LEFT RADIAL Blood Gas Patient Temperature 36.9 Arterial Blood pH 7.48 H 7.37-7.43 Arterial Blood Partial Pressure CO2 36 35-45 MMHG Arterial Blood Partial Pressure O2 79 79-93 MMHG Arterial Blood HCO3 26 23-27 MMOL/L Arterial Blood Total CO2 27.4 21.0-31.0 MMOL/L Arterial Blood Oxygen Saturation 97 94-100 % Arterial Blood Base Excess 3.0 H -2.5-2.5 MMOL/L Jarad Test POSITIVE Blood Gas Ventilator Setting NO Blood Gas Inspired Oxygen 70% BIPAP Test 02/24/22 05:10 Range/Units Sodium Level 145 135-145 MMOL/L Potassium Level 2.9 L 3.6-5.0 MMOL/L Chloride Level 108 H 98-107 MMOL/L Carbon Dioxide Level 23 21-32 MMOL/L Anion Gap 14 5-14 MMOL/L Blood Urea Nitrogen 32 H 7-18 MG/DL Creatinine 0.68 0.60-1.30 MG/DL Estimat Glomerular Filtration Rate 103 BUN/Creatinine Ratio 47 Glucose Level 168 H 70-105 MG/DL Calcium Level 8.3 L 8.5-10.1 MG/DL Magnesium Level 2.4 1.6-2.4 MG/DL Diagnosis/Problems Diagnosis/Problems (1) Paroxysmal atrial fibrillation Assessment & Plan: He has now developed atrial fibrillation. He had persistent tachycardia despite high-dose of intravenous diltiazem as well as an amiodarone infusion. As such, I had him undergo a cardioversion on 02/23 which was successful. Overnight, he has remained in sinus rhythm. I will transition intravenous amiodarone over to oral amiodarone. I will stop the intravenous diltiazem infusion. I suspect the atrial fibrillation was brought on by his acute, noncardiac illness. The atrial fibrillation lasted for less than 24 hours. As such, I do not see any strong indication for oral anticoagulation at this time. (2) Ventricular tachycardia Assessment & Plan: I suspect this was brought on by hypoxia that occurred during lightening of his sedation and weaning trials. He had an echocardiogram during this hospitalization that shows a normal ejection fraction. His magnesium level is normal but his potassium level was slightly low. I would try to keep his potassium level closer to 4. Continue diltiazem. He may need an ischemic evaluation once he recovers from this acute illness. This could certainly be done as an outpatient by his regular tower helper at the outside facility in [place], [place]. (3) Chronic heart failure with preserved ejection fraction (HFpEF) Assessment & Plan: His chest x-ray seems to be improving. I recommend he continue on the oral furosemide. I had given him 2 daily doses of intravenous furosemide and I will hold off on any further intravenous furosemide at this time. (4) Pulmonary hypertension Assessment & Plan: He has severe pulmonary hypertension as noted on his echocardiogram earlier in this hospitalization. I suspect this is due to his chronic obstructive pulmonary disease and chronic hypoxic respiratory failure. He may benefit from home oxygen if he has not already been using this. He needs to quit smoking. (5) Primary hypertension Assessment & Plan: Continue diltiazem. He has been receiving short acting diltiazem while he was intubated. This can be changed back to diltiazem CD once he has been cleared from an aspiration risk. (6) Mixed hyperlipidemia Assessment & Plan: He was taking atorvastatin at home which should be continued. (7) Acute and chronic respiratory failure with hypoxia Status: Acute Assessment & Plan: Most likely due to his chronic obstructive pulmonary disease and possibly a mild component of his chronic heart failure. The hospitalist and eICU are managing his pulmonary status. (8) Cigarette smoker Assessment & Plan: He needs to quit smoking. He seems to understand that this will be imperative. He stated that he is done with smoking. CAROL LEWIS JR, MD February 24, 2022 09:19
--- NOTE | 2022-02-24 09:53 | Tele-ICU Progress Note ---
Subjective Date Seen by a Provider: February 24, 2022 Time Seen by a Provider: 07:55 Subjective/Events-last exam This virtual visit was conducted using real time audio/video. Thank you for asking us to see this patient for respiratory insufficiency due to AECOPD, pna. Pt intubated 02/18/2020 and extubated on my order 57 AM. Went into afib/RVR 5/7 PM. Failed cardioversion but spontaneously converted on 02/24 at approx. 3 AM. PE: Appears comfortable on camera.. VSS. O2 sat 98% on Vapotherm 30 LPM, 70%. HEENT: No obvious masses, adenopathy or JVD. Chest: Diminished breath sounds. CV: Sinus with multiple PACs. S1 S2 No murmur or added sounds. Abd: Non-tender. Bowel sounds Y. : Unremarkable. Vanessa Y. FOOD CONSULTANT/psychiatric: Grossly intact. No obvious focal findings. Extremities: No edema. Capillary refill < 3 seconds. Skin: unremarkable. Results: Decreased Hb 12, K 2.9. Elevated Na 145 BUN 32, BG 168. CXR: hyperinflated w L basal infiltrate, . CTAC neg for PE. Available chart/ vitals / labs / images reviewed. Video assessment done using teleICU camera, rest of exam as per RN. A/P: Respiratory insufficiency: Continue present management with VT, medrol, duonebs. Monitor for increasing oxygenation needs/need for reintubation. Stopped Medrol and ordered Prednisone PO 40 mg/day for 5 days. Critical Care: critically ill patient. Cont. promise., Dilt., Amiodarone, PPI,, nicotine patch, SSI, lasix. Replace K. Discussed with CHAYITO Ayala and RT. Asked RN to reach out to eICU if any questions or concerns later. Time spent with patient/coordination of care with other health professionals (mins):35 Sepsis Event Evaluation Height, Weight, BMI Height: '" Weight: lbs. oz. kg; 30.04 BMI Method: Focused Exam Lactate Level 02/23/22 19:44: Lactic Acid Level 1.78 Exam Exam Patient acknowledged, consented, and participated in this virtual visit which was conducted using real time audio/video Vital Signs Date Time Temp Pulse Resp B/P (MAP) Pulse Ox O2 Delivery O2 Flow Rate FiO2 02/24/22 09:00 85 14 108/68 95 Vapotherm 30.00 70.00 02/24/22 08:00 90 17 129/44 95 Vapotherm 30.00 70.00 02/24/22 07:57 96 Vapotherm 30.00 70 02/24/22 07:51 37.2 02/24/22 07:00 110 24 102/63 96 Vapotherm 30.00 70.00 02/24/22 07:00 97 02/24/22 06:23 96 Vapotherm 30.00 70 02/24/22 06:00 93 22 103/52 97 High Flow N/C 10.00 02/24/22 05:00 96 23 105/83 99 High Flow N/C 10.00 02/24/22 04:00 83 26 121/68 97 High Flow N/C 10.00 02/24/22 04:00 96 Vapotherm 30.00 70 02/24/22 03:00 88 16 111/73 100 High Flow N/C 10.00 02/24/22 02:44 96 16 99 65.00 02/24/22 02:00 93 25 128/71 98 High Flow N/C 10.00 02/24/22 01:00 82 21 131/72 100 High Flow N/C 10.00 02/24/22 01:00 99 02/24/22 00:48 36.9 02/24/22 00:00 96 Vapotherm 30.00 70 02/24/22 00:00 89 15 132/74 99 High Flow N/C 10.00 02/23/22 23:00 96 26 107/88 100 High Flow N/C 10.00 02/23/22 22:22 112 17 100 70.00 02/23/22 22:00 109 26 109/86 100 High Flow N/C 10.00 02/23/22 21:00 125 19 110/85 99 High Flow N/C 10.00 02/23/22 20:22 103 98/67 02/23/22 20:22 103 98/67 02/23/22 20:00 106 21 110/90 100 High Flow N/C 10.00 02/23/22 20:00 96 Vapotherm 30.00 70 02/23/22 19:57 103 98/67 02/23/22 19:41 103 14 96 70.00 02/23/22 19:00 138 11 113/92 96 High Flow N/C 10.00 02/23/22 19:00 152 02/23/22 18:41 90 Vapotherm 30.00 70 02/23/22 18:00 152 14 104/90 91 High Flow N/C 10.00 02/23/22 17:00 124 14 100/61 93 High Flow N/C 10.00 02/23/22 16:00 115 23 90/72 96 High Flow N/C 10.00 02/23/22 15:34 96 Vapotherm 30.00 70 02/23/22 15:00 140 19 117/87 97 High Flow N/C 10.00 02/23/22 14:39 96 Vapotherm 30.00 70 02/23/22 14:00 165 26 99/71 88 High Flow N/C 10.00 02/23/22 13:45 108 113/95 02/23/22 13:00 110 23 113/95 90 High Flow N/C 10.00 02/23/22 13:00 108 02/23/22 12:08 129 116/81 02/23/22 12:00 104 9 133/94 90 High Flow N/C 10.00 02/23/22 12:00 92 High Flow N/C 8.00 02/23/22 12:00 High Flow N/C 10.00 02/23/22 11:59 36.2 02/23/22 11:00 129 17 116/81 90 High Flow N/C 6.00 02/23/22 10:25 92 High Flow N/C 6.00 02/23/22 10:00 70 11 136/84 96 High Flow N/C 6.00 I & O 02/24/22 07:00 Intake Total 406 ml Output Total 4025 ml Balance -3619 ml Height & Weight Height: '" Weight: lbs. oz. kg; 30.04 BMI Method: General Appearance: WD/WN, Anxious, Chronically ill HEENT: PERRL/EOMI, Normal ENT Inspection Neck: Normal Inspection; No JVD Respiratory: Accessory Muscle Use, Crackles, Decreased Breath Sounds, Rales, Respiratory Distress Cardiovascular: Regular Rate, Rhythm Capillary Refill: Less Than 3 Seconds Gastrointestinal: soft Extremity: Normal Inspection, Non Tender, No Pedal Edema Neurologic/Psychiatric: Alert, Oriented x3, No Motor/Sensory Deficits, Normal Mood/Affect Skin: Normal Color, Warm/Dry Results Lab Laboratory Tests 02/23/22 04:40 02/24/22 05:10 Assessment/Plan Assessment/Plan See free text. Critical Care: Critically Ill Patient MARGARITA PETTY MD February 24, 2022 09:53
[2022-02-24] MEDS: LORazepam INJ 2 MG/ML (ATIVAN) VIAL IVP PRN (22:30)
[2022-02-25] MEDS: morphine INJ 4 MG/ML 1 ML (VIAL/SYRINGE) IVP PRN ×5 (00:30→19:07)
[2022-02-25] MEDS: RT-ALBUTEROL/IPRATROPIUM 3 ML (DUONEB) VIAL INH SCH ×6 (01:43→21:54)
[2022-02-25] MEDS: LORazepam INJ 2 MG/ML (ATIVAN) VIAL IVP PRN (02:44)
[2022-02-25 03:46] LABS: ABG BASE EXCESS 3.4 MMOL/L (-2.5-2.5); ABG OXYGEN SATURATION 98 % (94-100); ABG PCO2 38 MMHG (35-45); ABG PH 7.46 (7.37-7.43); ABG PO2 88 MMHG (79-93); ABG TCO2 28.4 MMOL/L (21.0-31.0); INSPIRED O2 50%; VENTILATOR NO
[2022-02-25] MEDS: CEFEPIME INJECTION 1,000 MG in NS (IVPB) 50 ML IV SCH ×4 (04:21→20:37)
[2022-02-25] MEDS: HYDROcodone/APAP 7.5 MG/325 MG (LORTAB, LORCET PLUS) TABLET PO PRN ×3 (04:22→17:38)
[2022-02-25 05:18] LABS: CALCIUM 8.3 MG/DL (8.5-10.1); CREATININE SERUM 0.67 MG/DL (0.60-1.30); MAGNESIUM 2.5 MG/DL (1.6-2.4); POTASSIUM 3.5 MMOL/L (3.6-5.0)
[2022-02-25] MEDS: PROPOFOL DRIP (ICU) 100 ML IV SCH ×2 (07:04→12:05)
[2022-02-25] MEDS: polyethylene glycoL POWDER 17 GM (MIRALAX) PACK PO SCH ×3 (07:04→20:37)
[2022-02-25] MEDS: DOCUSATE SODIUM 10 MG/ML 10 ML UDC (COLACE) GT SCH ×3 (07:04→20:36)
[2022-02-25] MEDS: inSUlin ASPART (NovoLOG) 1 UNIT/0.01 ML (CHARGE PER UNIT) SC SCH ×5 (07:04→23:41)
[2022-02-25] MEDS: CATHETER FLUSH 10 ML SYR IV SCH ×3 (07:05→20:38)
[2022-02-25] MEDS: MAGNESIUM 1 GM/100 ML IVPB 100 ML IV SCH (07:06)
[2022-02-25] MEDS: KCL 20 MEQ TAB (K-DUR) PO SCH (07:06)
[2022-02-25] MEDS: POTASSIUM CL 10MEQ/50ML IVPB 50 ML IV SCH (07:06)
[2022-02-25] MEDS: guaiFENesin (MUCINEX) 600 MG TAB PO SCH ×2 (08:10→20:37)
[2022-02-25] MEDS: PANTOPRAZOLE 40 MG (PROTONIX) VIAL IV SCH (08:10)
[2022-02-25] MEDS: predniSONE 20 MG TAB PO SCH (08:10)
[2022-02-25] MEDS: FUROSEMIDE 40 MG (LASIX) TAB PO SCH (08:11)
[2022-02-25] MEDS: NICOTINE 21 MG (NICODERM) PATCH TD SCH (08:12)
[2022-02-25] MEDS: oxyCODONE ER 10 MG (OxyCONTIN CR) TAB PO SCH ×2 (08:12→20:38)
[2022-02-25] MEDS: AMIODARONE 200 MG (CORDARONE) TAB PO SCH ×2 (08:12→20:37)
--- NOTE | 2022-02-25 08:52 | Cardiology Progress Note ---
Progress Note-Cardiology Events since last exam Date Seen by Provider: February 25, 2022 Time Seen by Provider: 08:49 Events since last exam I am following him due to atrial fibrillation and nonsustained ventricular ta chycardia. He remains in the intensive care unit on high flow oxygen. He feels as though his breathing is improving. He denies chest pain, palpitations, syncope, or ankle edema. Certain portions of this document may have been dictated utilizing voice recognition technology. Inherent to this technology, typographical and grammatical errors may exist. As much as I am diligent to identify and correct these mistakes, some errors may remain in the document. Vitals Last set of Vitals Signs Vital Signs 02/25/22 02/25/22 02/25/22 14:33 15:00 15:38 Temp 35.6 Pulse 96 Resp 15 B/P (MAP) 118/71 Pulse Ox 98 O2 Delivery Vapotherm O2 Flow Rate 30.00 70.00 FiO2 55 Labs Labs Laboratory Tests 02/25/22 04:55 Exam Vital Signs Vital Signs Date Time Temp Pulse Resp B/P (MAP) Pulse Ox O2 Delivery O2 Flow Rate FiO2 02/25/22 15:38 35.6 02/25/22 15:00 96 15 118/71 98 Vapotherm 30.00 70.00 02/25/22 14:33 55 Physical Exam General: Alert. No acute distress. He is obese. He is on oxygen by nasal cannula Vapotherm. Eye: No xanthelasma. HENT: Normocephalic. Neck: Jugular venous pressure does not appear elevated. Respiratory: Lungs are clear to auscultation but slightly decreased throughout. Respirations are non-labored. Breath sounds are equal. Symmetrical chest wall expansion. Cardiovascular: Normal rate. Regular rhythm. Distant S1/S2. No murmur. No gallop. No edema. Gastrointestinal: Soft. Normal bowel sounds. Skin: Warm. Dry. Neurologic: Alert and oriented to person, place, time. Cranial nerves 3-11 grossly intact. Psychiatric: Cooperative. Appropriate mood & affect. Labs Laboratory Tests Test 02/24/22 17:38 02/25/22 03:30 02/25/22 04:55 02/25/22 11:26 Range/Units Glucometer 168 H 158 H 70-110 MG/DL Blood Gas Puncture Site UNK Blood Gas Patient Temperature 36.0 Arterial Blood pH 7.46 H 7.37-7.43 Arterial Blood Partial Pressure CO2 38 35-45 MMHG Arterial Blood Partial Pressure O2 88 79-93 MMHG Arterial Blood HCO3 27 23-27 MMOL/L Arterial Blood Total CO2 28.4 21.0-31.0 MMOL/L Arterial Blood Oxygen Saturation 98 94-100 % Arterial Blood Base Excess 3.4 H -2.5-2.5 MMOL/L Jarad Test NA Blood Gas Ventilator Setting NO Blood Gas Inspired Oxygen 50% Sodium Level 147 H 135-145 MMOL/L Potassium Level 3.5 L 3.6-5.0 MMOL/L Chloride Level 109 H 98-107 MMOL/L Carbon Dioxide Level 22 21-32 MMOL/L Anion Gap 16 H 5-14 MMOL/L Blood Urea Nitrogen 25 H 7-18 MG/DL Creatinine 0.67 0.60-1.30 MG/DL Estimat Glomerular Filtration Rate 103 BUN/Creatinine Ratio 37 Glucose Level 126 H 70-105 MG/DL Calcium Level 8.3 L 8.5-10.1 MG/DL Magnesium Level 2.5 H 1.6-2.4 MG/DL Triglycerides Level 266 H <150 MG/DL Diagnosis/Problems Diagnosis/Problems (1) Paroxysmal atrial fibrillation Status: Acute Assessment & Plan: He has now developed atrial fibrillation. He had persistent tachycardia despite high-dose of intravenous diltiazem as well as an amiodarone infusion. As such, I had him undergo a cardioversion on 02/23 which was successful. He has remained in sinus rhythm since that time. I transitioned the intravenous amiodarone over to oral amiodarone. I stopped the intravenous diltiazem infusion. I suspect the atrial fibrillation was brought on by his acute, noncardiac illness. The atrial fibrillation lasted for less than 24 hours. As such, I do not see any strong indication for oral anticoagulation at this time. We will need to taper the amiodarone over time. (2) Ventricular tachycardia Assessment & Plan: I suspect this was brought on by hypoxia that occurred during lightening of his sedation and weaning trials prior to his extubation. He had an echocardiogram during this hospitalization that shows a normal ejection fraction. His magnesium level is normal but his potassium level was slightly low. I would try to keep his potassium level closer to 4. Continue diltiazem. He may need an ischemic evaluation once he recovers from this acute illness. This could certainly be done as an outpatient by his regular excellence manager at the outside facility in [place], [place]. (3) Chronic heart failure with preserved ejection fraction (HFpEF) Assessment & Plan: His chest x-ray seems to be improving. I recommend he continue on the oral furosemide. I had given him 2 daily doses of intravenous furosemide on 02/22 and 02/23. I will hold off on any further intravenous furosemide at this time. (4) Pulmonary hypertension Assessment & Plan: He has severe pulmonary hypertension as noted on his echocardiogram earlier in this hospitalization. I suspect this is due to his chronic obstructive pulmonary disease and chronic hypoxic respiratory failure. He may benefit from home oxygen if he has not already been using this. He needs to quit smoking. (5) Primary hypertension Assessment & Plan: Continue diltiazem. He has been receiving short acting diltiazem while awaiting a swallow evaluation by speech therapy. This can be changed back to diltiazem CD once he has been cleared from an aspiration risk. (6) Mixed hyperlipidemia Assessment & Plan: He was taking atorvastatin at home which should be continued. (7) Acute and chronic respiratory failure with hypoxia Status: Acute Assessment & Plan: Most likely due to his chronic obstructive pulmonary disease and possibly a mild component of his chronic heart failure. The hospitalist and eICU are managing his pulmonary status. (8) Cigarette smoker Assessment & Plan: He needs to quit smoking. He seems to understand that this will be imperative. He stated that he is done with smoking. CAROL LEWIS JR, MD February 25, 2022 08:52
[2022-02-25] MEDS ORDERED: KCL 20 MEQ TAB (K-DUR) PO ONE (09:00)
[2022-02-25] MEDS: NICOTINE PATCH REMOVAL TP SCH (09:53)
--- NOTE | 2022-02-25 11:39 | Physical Therapy Evaluation ---
PT Evaluation-General Medical Diagnosis Admission Date Feb 12, 2022 at 13:35 Medical Diagnosis: pneumonia/COPD Onset Date: Feb 12, 2022 Therapy Diagnosis Therapy Diagnosis: generalized weakness/debility Precautions Precautions/Isolations: Fall Prevention, Standard Precautions Referral Physician: Raulito Reason for Referral: Evaluation/Treatment Medical History Pertinent Medical History: Atrial Fib, CAD, COPD (O2 dependent 3-4L), OR, PVD, Smoking Current History extubated 02/23/22 due to respiratory failure Reviewed History: Yes Social History Home: Single Level Current Living Status: Spouse Prior Prior Level of Function SCALE: Activities may be completed with or without assistive devices. 7-Qmihubkwzt-yowigaa completes the activity by him/herself with no assistance from a helper. 5-Set-up or Clean-up Assistance-helper sets up or cleans up; patient completes activity. [place] assists only prior to or following the activity. 4-Supervision or Touching Assistance-helper provides verbal cues and/or touchin g/steadying and/or contact guard assistance as patient completes activity. Assistance may be provided throughout the activity or intermittently. 3-Partial/Moderate Assistance-helper does LESS THAN HALF the effort. [place] lifts, holds or supports trunk or limbs, but provides less than half the effort. 2-Substantial/Maximal Assistance-helper does MORE THAN HALF the effort. [place] lifts or holds trunk or limbs and provides more than half the effort. 5-Dvbipjjkv-rddeay does ALL the effort. Patient does none of the effort to complete the activity. Or, the assistance of 2 or more helpers is required for the patient to complete the activity. If activity was not attempted, code reason: 7-Patient Refused. 9-Not Applicable-not attempted and the patient did not perform the activity before the current illness, exacerbation or injury. 10-Not Attempted due to Environmental Limitations-(lack of equipment, weather restraints, etc.). 88-Not Attempted due to Medical Conditions or Safety Concerns. Bed Mobility: 6 Transfers (B,C,W/C): 6 Gait: 6 Stairs: 6 Indoor Mobility (Ambulation): Independent Stairs: Independent Prior Devices Use: None PT Evaluation-Current Subjective Patient agrees to PT. Objective Patient Orientation: Person, Time, Situation Attachments: Oxygen (vapotherm), Vanessa Catheter, IV ROM/Strength ROM Lower Extremities bilateral LE WFL Strength Lower Extremities 2/5 grossly bilateral LE Integumentary/Posture Bladder Incontinence: Vanessa Cath Neuromuscular (Tone, Coordination, Reflexes) diminished coordination due to severe weakness Sensory Vision: Functional Hearing: Functional Transfers Roll Left to Right (QC): 1 (x 2) Sit to Lying (QC): 1 (x 2) Lying to Sitting/Side of Bed(Q: 1 (x 2) patient sat EOB dependent assist to maintain Gait Does the Patient Walk?: No and Walking Goal IS indicated Balance Sitting Static: Poor Sitting Dynamic: Poor Assessment/Needs 66 y.o. male, will benefit from skilled PT to address functional strength and mobility to improve current LOF. Patient sat EOB for 5 min dependent assist to attain and maintain. Patient fatigues with minimal activity. Rehab Potential: Guarded PT Short Term Goals Short Term Goals Time Frame: March 16, 2022 Roll Left & Right: 3 Sit to lyin Lying to sitting on side of be: 3 Sit to stand: 3 Chair/rew-gm-rhfvc transfer: 3 Toilet transfer: 3 Walk 10 feet: 3 PT Prison Goals Communication Manager Goals PT Communication Manager Goals Time Frame: Apr 06, 2022 Roll Left & Right (QC): 6 Sit to Lying (QC): 6 Lying-Sitting on Side/Bed(QC): 6 Sit to Stand (QC): 6 Chair/Bej-tn-Ozddh Xfer(QC): 6 Toilet Transfer (QC): 6 Car Transfer (QC): 6 Walk 10 feet (QC): 6 Walk 50ft with 2 Turns (QC): 6 Walk 150 ft (QC): 6 PT Plan Problem List Problem List: Activity Tolerance, Functional Strength, Safety, Balance, Gait, Transfer, Bed Mobility Treatment/Plan Treatment Plan: Continue Plan of Care Treatment Plan: Bed Mobility, Education, Functional Activity Yvette, Functional Strength, Gait, Safety, Therapeutic Exercise, Transfers Treatment Duration: Apr 06, 2022 Frequency: 6 times per week Estimated Hrs Per Day: .25 hour per day Patient and/or Family Agrees t: Yes Time/GCodes Time In: 1100 Time Out: 1113 Total Billed Treatment Time: 13 Total Billed Treatment 1 visit EVHighC 13 min DOUGLAS WILEY PT February 25, 2022 11:39
--- NOTE | 2022-02-25 11:43 | ST Dysphagia Evaluation ---
Speech Evaluation-General Medical Diagnosis Pneumonia Onset Date: February 17, 2022 Therapy Diagnosis Therapy Diagnosis: Oropharyngeal Dysphagia Precautions Precautions: Fall, Aspiration Precautions/Isolations: Aspiration, Fall Prevention, Standard Precautions Referral Referring Physician: Dr. Angel Pugh Reason for Referral: Evaluation/Treatment Medical History Current History The patient is a 66 year-old male with a past medical history of COPD, CHF, emphysema, CAD, HTN, high cholesterol and GERD, who presented to the emergency room with left-sided pain from his neck down through the upper abdomen with coughing and deep breathing. The patient wears 3L/min of supplemental oxygen via nasal cannula at baseline. The patient was intubated from 02/17/2022 to 02/23/2022. CXR: 02/24/2022: IMPRESSION: Left basilar atelectasis and/or pneumonitis and small left pleural effusion. Reviewed History: Yes Speech PLF/Current-Dysphagia Prior Level of Function The patient stated he consumed a regular consistency diet with thin liquids prior to admission. Subjective The patient was lying in bed, awake and alert upon entrance to his room by the clinician. The patient's is at bedside and remains for the evaluation. The patient greeted the clinician and was agreeable to participation in the clinical bedside swallowing evaluation. The patient was positioned upright in bed for safe swallowing. The patient is receiving Vapotherm at 30 LPM and 55% O2%. The patient's SpO2% is fluctuating between 93% and 91% at baseline. Cognitive Status Patient Orientation: Person, Place Oral Motor Skills Dentition: Edentalous Ability to Follow Directions: Fair Oral Expression Ability: Moderate Impairment Voice Voice Phonatory-Based Quality: Harsh Voice Pitch: Normal Voice Loudness: Normal Face Facial Symmetry: Symmetrical Oral-Facial Assessment Oral-Facial Dentition: Normal Labial Seal Description: Normal Smile: Normal Lingual Protrusion: Normal Lingual ROM: Normal Lingual Strength: Normal Volitional Dry Swallow: Yes Voluntary Cough: Yes Can Clear Throat Volitionally: Yes Productive Cough: Yes Productive Throat Clear: Yes Dysphagia Evaluation Consistencies Presented: Thin Liquid, [place] Thick Liquid, Pureed Oral Phase: Reduced Oral Transit The patient was able to accurately draw bolus material from a teaspoon and a straw. Intermittently, the patient would orally hold the thin liquid (water) bolus in the oral cavity and display a posterior head tilt to transfer the material posterior and elicit a pharyngeal swallow. The patient did not display this behavior with nectar-thick liquids or puree. Pharyngeal Phase: Decreased A/P Bolus Transit Funct. Velo/Pharyngeal Symptom: Cough After Swallow To note, the patient does display a rigorous, productive cough at baseline, prior to the introduction of bolus material. Laryngeal elevation was present to palpation. The patient was provided thin liquid via teaspoon and straw drink, nectar-thick liquid via teaspoon and straw drink, and puree. The patient demonstrated a delayed, rigorous, productive cough following two trials of thin liquid. Overt s/s of suspected aspiration were not present following any trial of nectar-thick liquid or puree. Dietary Recommendations: Pureed Liquid Recommendations: [place] Consistancy Recommendations: - Dysphagia one (pureed) diet consistency with mildly thick (nectar-thick) liquid, as tolerated. - Fully upright and alert for all P.O. intake. - 1:1 feeding assistance and supervision. - Small, single bites and sips. - Crush medication and place in puree for administration. - Monitor for s/s of suspected aspiration with P.O. intake. If demonstrated, contact speech pathology. The results and recommendations were discussed with the patient, the patient's family, and the RN. Additionally, the recommendations were placed on the in-room white board. The patient and the patient's verbalized comprehension of the material. Dysphagia Evaluation Summary The patient demonstrated suspected oropharyngeal dysphagia characterized by decreased lingual coordination and reduced airway protection in the presence of bolus material (thin liquid). Overt s/s of suspected aspiration were not demonstrated with nectar-thick liquid or puree. Speech Short Term Goals Short Term Goals Short Term Goals 1. The patient, staff, and family will follow safe swallowing strategies with 90% accuracy, independently. Time Frame-STG: Five Days. Speech Penitentiary Goals Integration Engineer Goals 1. The patient will tolerate the least restrictive diet consistency without s/s of suspected aspiration with P.O. intake. Time Frame: One Week. Speech-Plan Treatment Plan Speech Therapy Treatment Plan: Continue Plan of Care Treatment Duration: March 11, 2022 Frequency: 2 times per week Estimated Hrs Per Day: .25 hour per day Rehab Potential: Guarded Pt/Family Agrees to Plan: Yes Safety Risks/Education Teaching Recipient: Patient, Family Teaching Methods: Discussion Response to Teaching: Reinforcement Needed Education Topics Provided: Results of CBSE, Safe Swallowing Strategies, Recommendations Time Speech Therapy Time In: 10:03 Speech Therapy Time Out: 10:30 Total Billed Time: 27 Billed Treatment Time 1, BEATRIZ BLACKWELL [facility] February 25, 2022 11:42
--- NOTE | 2022-02-25 12:21 | Progress Note ---
Subjective Subjective/Events-last exam Patient feeling some better. Still has very little exercise tolerance. Swallow study pending today. Review of Systems General: Fatigue, Malaise Pulmonary: Dyspnea Neurological: Weakness, Incoordination Focused Exam Lactate Level 02/23/22 19:44: Lactic Acid Level 1.78 Objective Exam Last Set of Vital Signs Vital Signs Date Time Temp Pulse Resp B/P (MAP) Pulse Ox O2 Delivery O2 Flow Rate FiO2 02/25/22 12:00 95 21 126/88 97 Vapotherm 30.00 70.00 02/25/22 11:30 35.8 02/25/22 10:58 55 Capillary Refill : Less Than 3 Seconds I&O Intake and Output 02/25/22 00:00 Intake Total 150 ml Output Total 2650 ml Balance -2500 ml IV Total 150 ml Output Urine Total 2650 ml General: Alert, Oriented X3, Moderate Distress (Increased work of breathing with any activity) Lungs: Other (diffuse wheezing throughout) Heart: Regular Rate, No Murmurs Abdomen: Normal Bowel Sounds, Soft Results/Procedures Lab Laboratory Tests 02/24/22 17:38: Glucometer 168H 02/25/22 03:30: Blood Gas Puncture Site UNK, Blood Gas Patient Temperature 36.0, Arterial Blood pH 7.46H, Arterial Blood Partial Pressure CO2 38, Arterial Blood Partial Pressure O2 88, Arterial Blood HCO3 27, Arterial Blood Total CO2 28.4, Arterial Blood Oxygen Saturation 98, Arterial Blood Base Excess 3.4H, Jarad Test NA, Blood Gas Ventilator Setting NO, Blood Gas Inspired Oxygen 50% 02/25/22 04:55: Sodium Level 147H, Potassium Level 3.5L, Chloride Level 109H, Carbon Dioxide Level 22, Anion Gap 16H, Blood Urea Nitrogen 25H, Creatinine 0.67, Estimat Glomerular Filtration Rate 103, BUN/Creatinine Ratio 37, Glucose Level 126H, Calcium Level 8.3L, Magnesium Level 2.5H, Triglycerides Level 266H 02/25/22 11:26: Glucometer 158H Microbiology 02/23/22 Blood Culture - Preliminary, Resulted No growth 02/17/22 Gram Stain - Final, Complete 02/17/22 Sputum Culture - Final, Complete Usual upper respiratory ravi Radiology Date of Exam:02/12/22 CT ANGIO CHEST W PROCEDURE: CT angiography Chest TECHNIQUE: After intravenous administration of contrast, thin section axial CT angiography of the chest was performed. 3D MIP reconstructions were made. All CT scans use one or more of the following dose optimizing techniques: automated exposure control, MA and/or KvP adjustment based on a patient size and exam type, or iterative reconstruction. INDICATION: Chest pain, cough and shortness of air COMPARISON: Chest radiograph from earlier same day. FINDINGS: Vasculature: No pulmonary emboli. No CT evidence of pulmonary hypertension or right ventricular strain. Thoracic aorta is normal in caliber. No aortic dissection or pseudoaneurysm. Heart and mediastinum: Visualized thyroid is normal. No supraclavicular, axillary, or intra-thoracic lymphadenopathy. The heart is normal in size without pericardial effusion. Dense mitral annulus calcifications are present. Calcification is also present in the aortic valve leaflets. Pleura: Small left and trace right pleural effusions. Lungs and airway: Severe centrilobular emphysema is present. Bandlike opacities are present in the left apex with architectural distortion. There are few patchy centrilobular micro-nodules and groundglass in the left upper lobe as well. No interlobular septal thickening. Upper abdomen: Allowing for the phase of contrast, no acute abnormality in the upper abdomen is seen. Musculoskeletal: No concerning osseous lesion. IMPRESSION: 1. No pulmonary emboli or acute aortic syndrome. 2. Left upper lobe scattered centrilobular opacities and nodules are likely due to an infectious process. 3. Severe emphysema with left apical bandlike opacity and architectural distortion. This is likely due to an area of scar, but no prior imaging is available to document stability. Therefore, advise followup CT chest without contrast in 3 months to reassess 4. Small left and trace right pleural effusions. 5. Calcified aortic valve leaflets can be seen with aortic stenosis. Dictated by: Dictated on workstation # [id number] Dict: 02/12/22 1117 Trans: 02/12/22 112 CV [id number] Interpreted by: EDGAR ESCOBEDO MD Electronically signed by: EDGAR ESCOBEDO MD 02/12/22 1127 Assessment/Plan Assessment/Plan (1) Acute and chronic respiratory failure with hypoxia Status: Acute Assessment & Plan: 02/25: Extubated Friday, bipap friday and currently on Vapotherm, Still considering LTAC given very low exercise tolerance and likely will need long wean (2) COPD exacerbation Status: Acute Assessment & Plan: 02/25: End stage COPD, poor prognosis (3) PNA (pneumonia) Status: Acute Qualifiers: Qualified Codes: J18.9 - Pneumonia, unspecified organism (4) Lower extremity weakness Status: Acute Assessment & Plan: - Will order PT Qualifiers: Qualified Codes: R29.898 - Other symptoms and signs involving the musculoskeletal system (5) Paroxysmal atrial fibrillation Status: Acute Assessment & Plan: 02/25: Cardiology consulted and managing, appreciate recommendations (6) HLD (hyperlipidemia) Status: Chronic Assessment & Plan: - Continue home meds (7) HTN (hypertension) Status: Chronic Assessment & Plan: - Holding home bp meds due to normotension and risk of developing sepsis (8) DVT prophylaxis Status: Acute Assessment & Plan: - lovenox Clinical Quality Measures AMI/AHF: ASA po Prior to arrival: JEAN MARIE Bennett MD February 25, 2022 12:21
--- NOTE | 2022-02-25 13:24 | Tele-ICU Progress Note ---
Subjective Date Seen by a Provider: February 25, 2022 Time Seen by a Provider: 13:24 Subjective/Events-last exam (Tele-ICU Physician , Progress Note ) Available chart/ vitals / labs / Images reviewed Video assessment done using teleICU camera, rest of exam as per RN Discussed with RN , EXAM PER RN Events overnight : Afebrile - 37 FiO2 - VT 30L 55% I/O = neg 2500 Drips: Pressors: , hemodynamically stable Consultants: Hospital course: (02/12) 66 y/o make admitted for CHF, COPD exac. pneumonia (02/14) transferred to ICU, worsening resp status. bipap applied (02/15) Avaps. (02/17) Emergently intubated @ 1234 02/22- 55% peep 8 - failed SBT with agitation (02/23) extubated 0715 (placed to HFNC) (02/23) AFIB RVR on amiodarone and cardizem gtt// failed cardvsn and vapotherm.//Now on bipap and debi 02/24 US LE neg 02/25VT 30L 55%, started PO A/P Acute resp failure ( CTA 02/12 - no pe , small effusions -VT 30L 55% - cont to diurese , po steroid , IS AECOPD - prednisone 40 -duoneb q 4 LRTI - sputum 02/17 - ususl ravi - cefepime 02/23-12 Pulm HTN - ECHO 02/14 - RVSP 70 mmHg - cont diuresis , lasix po qd Hypernatremia - po SASKIA - 02/16 - resolved left apical bandlike opacity - for follow as outpt by PCP Lines : peripf (Central Line Necessity Reviewed) Vanessa: + OG: Nutrition: po 02/25 Analgesia: Anxiety/ delirium VTE Prophylaxis: promise 40 Stress Ulcer Prophylaxis: ppi Plans in collaboration with bedside consultants and IM MDs. Discussed with RN to reach out if any questions or concerns A total of 31minutes of critical care time was devoted to this patient today, required to treat and/or prevent further deterioration of critical care condition ( as above) . Sepsis Event Evaluation Height, Weight, BMI Height: '" Weight: lbs. oz. kg; 30.04 BMI Method: Focused Exam Lactate Level 02/23/22 19:44: Lactic Acid Level 1.78 Exam Exam Patient acknowledged, consented, and participated in this virtual visit which was conducted using real time audio/video Vital Signs Date Time Temp Pulse Resp B/P (MAP) Pulse Ox O2 Delivery O2 Flow Rate FiO2 02/25/22 12:58 95 02/25/22 12:00 95 21 126/88 97 Vapotherm 30.00 70.00 02/25/22 11:30 35.8 02/25/22 11:00 91 107/71 95 Vapotherm 30.00 70.00 02/25/22 10:58 96 Vapotherm 30.00 55 02/25/22 10:00 100 14 130/86 97 Vapotherm 30.00 70.00 02/25/22 09:00 93 14 123/79 97 Vapotherm 30.00 70.00 02/25/22 08:00 95 Vapotherm 30.00 55 02/25/22 08:00 97 136/85 99 Vapotherm 30.00 70.00 02/25/22 07:45 36.1 02/25/22 07:00 97 02/25/22 07:00 98 Vapotherm 30.00 55 02/25/22 07:00 96 9 139/78 96 Vapotherm 30.00 70.00 02/25/22 06:00 96 21 117/69 89 Vapotherm 30.00 70.00 02/25/22 05:00 87 16 96/55 93 Vapotherm 30.00 70.00 02/25/22 04:30 90 13 149/99 96 Vapotherm 30.00 70.00 02/25/22 04:00 90 16 121/73 94 NIV Bilevel 50.00 02/25/22 04:00 96 Vapotherm 30.00 60 02/25/22 03:45 91 19 109/83 96 NIV Bilevel 50.00 02/25/22 03:30 90 19 144/78 95 NIV Bilevel 50.00 02/25/22 03:15 91 20 118/67 94 NIV Bilevel 50.00 02/25/22 03:00 89 12 124/79 90 NIV Bilevel 50.00 02/25/22 02:45 93 12 120/73 94 NIV Bilevel 50.00 02/25/22 02:30 94 14 124/80 98 NIV Bilevel 50.00 02/25/22 02:15 97 11 118/79 94 NIV Bilevel 50.00 02/25/22 02:00 98 13 140/73 100 NIV Bilevel 50.00 02/25/22 01:45 96 12 129/88 95 NIV Bilevel 50.00 02/25/22 01:43 94 22 100 60.00 02/25/22 01:30 96 19 108/68 94 NIV Bilevel 50.00 02/25/22 01:15 96 12 115/76 94 NIV Bilevel 50.00 02/25/22 01:00 97 27 126/68 97 NIV Bilevel 50.00 02/25/22 01:00 97 02/25/22 00:45 96 22 113/78 95 NIV Bilevel 50.00 02/25/22 00:30 105 14 116/82 86 NIV Bilevel 50.00 02/25/22 00:15 102 13 143/84 97 NIV Bilevel 50.00 02/25/22 00:00 96 Vapotherm 30.00 60 02/25/22 00:00 97 17 120/75 100 NIV Bilevel 50.00 02/24/22 23:45 96 23 108/69 87 NIV Bilevel 50.00 02/24/22 23:30 96 10 130/70 100 NIV Bilevel 50.00 02/24/22 23:15 95 14 123/73 99 NIV Bilevel 50.00 02/24/22 23:00 96 14 134/64 100 NIV Bilevel 50.00 02/24/22 22:45 98 15 127/78 98 NIV Bilevel 50.00 02/24/22 22:40 98 19 99 NIV Bilevel 50.00 02/24/22 22:30 100 15 135/74 95 Vapotherm 30.00 70.00 02/24/22 22:15 103 11 120/66 Vapotherm 30.00 70.00 02/24/22 22:00 102 17 148/77 96 Vapotherm 30.00 70.00 02/24/22 21:45 104 15 145/85 97 Vapotherm 30.00 70.00 02/24/22 21:44 94 Vapotherm 30.00 55 02/24/22 21:30 100 16 124/69 97 Vapotherm 30.00 70.00 02/24/22 21:15 99 14 117/73 97 Vapotherm 30.00 70.00 02/24/22 21:00 100 13 122/73 96 Vapotherm 30.00 70.00 02/24/22 20:45 104 25 133/76 94 Vapotherm 30.00 70.00 02/24/22 20:30 100 16 149/134 90 Vapotherm 30.00 70.00 02/24/22 20:15 100 10 106/80 93 Vapotherm 30.00 70.00 02/24/22 20:00 96 Vapotherm 30.00 60 02/24/22 20:00 104 19 129/81 95 Vapotherm 30.00 70.00 02/24/22 19:45 98 13 113/73 96 Vapotherm 30.00 70.00 02/24/22 19:33 36.6 02/24/22 19:30 99 15 136/71 94 Vapotherm 30.00 70.00 02/24/22 19:15 101 21 131/69 94 Vapotherm 30.00 70.00 02/24/22 19:00 101 11 126/66 94 Vapotherm 30.00 70.00 02/24/22 19:00 107 02/24/22 18:13 95 Vapotherm 30.00 55 02/24/22 18:00 107 17 110/71 95 Vapotherm 30.00 70.00 02/24/22 17:00 96 15 123/70 96 Vapotherm 30.00 70.00 02/24/22 16:13 96 Vapotherm 30.00 60 02/24/22 16:00 96 17 117/80 97 Vapotherm 30.00 70.00 02/24/22 16:00 37.0 02/24/22 15:05 95 Vapotherm 30.00 55 02/24/22 15:00 87 10 126/72 97 Vapotherm 30.00 70.00 02/24/22 14:00 87 12 112/64 97 Vapotherm 30.00 70.00 I & O 02/25/22 07:00 Intake Total 150 ml Output Total 2300 ml Balance -2150 ml Height & Weight Height: '" Weight: lbs. oz. kg; 30.04 BMI Method: General Appearance: Anxious, Chronically ill, Mild Distress HEENT: PERRL/EOMI, Normal ENT Inspection Neck: Normal Inspection; No JVD Respiratory: No Accessory Muscle Use, No Respiratory Distress, Accessory Muscle Use, Decreased Breath Sounds Cardiovascular: Regular Rate, Rhythm Capillary Refill: Less Than 3 Seconds Gastrointestinal: soft Extremity: Normal Inspection, Non Tender, No Pedal Edema Neurologic/Psychiatric: Alert, Oriented x3, No Motor/Sensory Deficits, Normal Mood/Affect Skin: Normal Color, Warm/Dry Results Lab Laboratory Tests 02/24/22 05:10 02/25/22 04:55 Assessment/Plan Assessment/Plan 1 IGNACIO ALDRICH MD February 25, 2022 13:24
--- NOTE | 2022-02-25 14:38 | Occupational Therapy Eval ---
OT Evaluation-General/PLF Medical Diagnosis Admission Date Feb 12, 2022 at 13:35 Medical Diagnosis: Pneumonia Onset Date: February 17, 2022 Therapy Diagnosis Therapy Diagnosis: decreased ADL status Precautions Precautions/Isolations: Aspiration, Fall Prevention, Standard Precautions Referral Physician: Raulito Olea Reason: Evaluation/Treatment Medical History Pertinent Medical History: Atrial Fib, CAD, COPD (O2 dependent 3-4L), [place], PVD, Smoking Additional Medical History COPD with baseline 4L O2, HTN, HLD, iron def. anemia Current History ED with SOB, c/o rib and abdominal pain from coughing. Pt intubated, extubated 02/23/22 Social History Home: Single Level Current Living Status: Spouse ADL-Prior Level of Function SCALE: Activities may be completed with or without assistive devices. 6-[id number]-[id number] completes the activity by him/herself with no assistance from a helper. 5-Set-up or Clean-up Assistance-helper sets up or cleans up; patient completes activity. Clifton assists only prior to or following the activity. 4-Supervision or Touching Assistance-helper provides verbal cues and/or touching/steadying and/or contact guard assistance as patient completes activity. Assistance may be provided throughout the activity or intermittently. 3-Partial/Moderate Assistance-helper does LESS THAN HALF the effort. Clifton lifts, holds or supports trunk or limbs, but provides less than half the effort. 2-Substantial/Maximal Assistance-helper does MORE THAN HALF the effort. Clif[place] lifts or holds trunk or limbs and provides more than half the effort. 1-Zidawsjmj-hrmimd does ALL the effort. Patient does none of the effort to complete the activity. Or, the assistance of 2 or more helpers is required for the patient to complete the activity. If activity was not attempted, code reason: 7-Patient Refused. 9-Not Applicable-not attempted and the patient did not perform the activity before the current illness, exacerbation or injury. 10-Not Attempted due to Environmental Limitations-(lack of equipment, weather restraints, etc.). 88-Not Attempted due to Medical Conditions or Safety Concerns. ADL PLOF Comments Pt reports IND with ADLs and functional mobility at PLOF, no AD Self Care: Independent Functional Cognition: Independent DME/Equipment: Bath Chair, Shower OT Current Status Subjective Pt in bed, 1 visitor present. Pt agreeable to OT tx. Mental Status/Objective Patient Orientation: Person, Place, Situation Attachments: Vanessa Catheter, IV, Oxygen (vapotherm) Current Hand Dominance: Right Upper Extremity ROM Decreased BUE. RUE shoulder flexion to approx 20 degrees, LUE to approx 5 degrees Upper Extremity Strength grossly 2/5 BUEs ADL-Treatment Eating (QC): 2 (per report) Oral Hygiene (QC): 2 (per clinial judgment.) Lower Body Dressing (QC): 1 (per clinial judgment.) On/Off Footwear (QC): 1 (per clinial judgment.) Toileting Hygiene (QC): 1 (catheter) Other Treatments Pt in bed, agreeable to OT tx. Pt provided information about PLOF and home set up and participated in UE screen. Pt educated on energy conservation techniques. OT also educated pt on completing UE exercises throughout the day, increasing reps as tolerated, including shoulder flexion, elbow flexion/extension and finger flexion/extension. OT assisted pt with positioning to comfort in R sidelying position to off load pressure on buttocks, assist x2 required for positioning. Post tx, pt in bed, call light in reach and all needs met. Education OT Patient Education: Correct positioning, Energy conservation, Modified ADL techniques, Progress toward Goal/Update tx plan, Purpose of tx/functional activities Teaching Recipient: Patient Teaching Methods: Discussion Response to Teaching: Verbalize Understanding OT Jail Goals Sorting Grapple Operator Goals Time Frame: March 15, 2022 Eating (QC): 5 Oral Hygiene (QC): 5 Toileting Hygiene (QC): 4 Shower/Bathe Self (QC): 3 Upper Body Dressing (QC): 4 Lower Body Dressing (QC): 3 On/Off Footwear (QC): 3 Additional Goals: 1-Demonstrate ADL Tasks, 2-Verbalize Understanding, 3-Im proveStrength/Yvette 1=Demonstrate adherence to instructed precautions during ADL tasks. 2=Patient will verbalize/demonstrate understanding of assistive devices/modifications for ADL. 3=Patient will improve strength/tolerance for activity to enable patient to perform ADL's. OT Education/Plan Problem List/Assessment Assessment: Decreased Activ Tolerance, Decreased UE Strength, Dependent Transfers, Impaired Bed Mobility, Impaired Coordination, Impaired Funct Balance, Impaired I ADL's, Impaired Self-Care Skills, Restricted Funct UE ROM Discharge Recommendations Plan/Recommendations: Continue POC Treatment Plan/Plan of Care Patient would benefit from OT for education, treatment and training to promote independence in ADL's, mobility, safety and/or upper extremity function for ADL's. Plan of Care: ADL Retraining, Functional Mobility, UE Funct Exercise/Act Treatment Duration: March 15, 2022 Frequency: 3 times per week (3-5 times per week) Estimated Hrs Per Day: .25 hour per day Rehab Potential: Guarded Time/GCodes Start Time: 13:32 Stop Time: 13:46 Total Time Billed (hr/min): 14 Billed Treatment Time 1, NICOLAS JHA OT February 25, 2022 14:38
[2022-02-25] MEDS: ENOXAPARIN 40 MG/0.4 ML (LOVENOX) SYR SQ SCH (20:37)
[2022-02-26] MEDS: morphine INJ 4 MG/ML 1 ML (VIAL/SYRINGE) IVP PRN ×2 (00:39→06:04)
[2022-02-26] MEDS: RT-ALBUTEROL/IPRATROPIUM 3 ML (DUONEB) VIAL INH SCH ×6 (01:51→23:31)
[2022-02-26] MEDS: CEFEPIME INJECTION 1,000 MG in NS (IVPB) 50 ML IV SCH ×4 (03:58→22:06)
[2022-02-26] MEDS: HYDROcodone/APAP 7.5 MG/325 MG (LORTAB, LORCET PLUS) TABLET PO PRN ×2 (03:59→15:59)
[2022-02-26 04:20] LABS: ABG BASE EXCESS 6.1 MMOL/L (-2.5-2.5); ABG OXYGEN SATURATION 75 % (94-100); ABG PCO2 39 MMHG (35-45); ABG PH 7.49 (7.37-7.43); ABG TCO2 31.1 MMOL/L (21.0-31.0)
[2022-02-26 04:21] LABS: ALLENS TEST POSITIVE; INSPIRED O2 3L NC; PATIENT TEMP 36; VENTILATOR NO
[2022-02-26 04:22] LABS: ABG PO2 38 MMHG (79-93)
[2022-02-26 05:10] LABS: BASOPHILS % (AUTO) 0 % (0-10); EOSINOPHILS % (AUTO) 0 % (0-10); HEMATOCRIT 38 % (40-54); HEMOGLOBIN 12.4 g/dL (13.3-17.7); LYMPHOCYTES # (AUTO) 0.9 10^3/uL (1.0-4.0); LYMPHOCYTES % (AUTO) 9 % (12-44); MEAN CORPUSCULAR HEMOGLOBIN 31 pg (25-34); MEAN CORPUSCULAR HGB CONC 33 g/dL (32-36); MEAN CORPUSCULAR VOLUME 94 fL (80-99); MEAN PLATELET VOLUME 11.5 fL (9.0-12.2); MONOCYTES # (AUTO) 0.5 10^3/uL (0.0-1.0); MONOCYTES % (AUTO) 5 % (0-12); NEUTROPHILS # (AUTO) 8.2 10^3/uL (1.8-7.8); NEUTROPHILS % (AUTO) 83 % (42-75); PLATELET COUNT 117 10^3/uL (130-400); WHITE BLOOD COUNT 9.9 10^3/uL (4.3-11.0)
[2022-02-26 05:20] LABS: ALBUMIN 3.2 GM/DL (3.2-4.5); POTASSIUM 3.3 MMOL/L (3.6-5.0)
[2022-02-26 05:21] LABS: CALCIUM 8.4 MG/DL (8.5-10.1)
[2022-02-26 05:22] LABS: TOTAL PROTEIN 5.5 GM/DL (6.4-8.2)
[2022-02-26 05:24] LABS: BILIRUBIN,TOTAL 1.2 MG/DL (0.1-1.0)
[2022-02-26] MEDS: POTASSIUM CL 10MEQ/50ML IVPB 50 ML IV SCH (05:25)
[2022-02-26 05:26] LABS: CREATININE SERUM 0.65 MG/DL (0.60-1.30)
[2022-02-26] MEDS: KCL 20 MEQ TAB (K-DUR) PO SCH (05:27)
[2022-02-26 05:45] LABS: ANISOCYTOSIS SLIGHT; ATYPICAL LYMPHOCYTES 1 %; BAND NEUTROPHILS 2 %; LYMPHOCYTES % (MANUAL) 13 %; MICROCYTOSIS SLIGHT; MONOCYTES % (MANUAL) 4 %; NEUTROPHILS % (MANUAL) 80 %
[2022-02-26] MEDS: predniSONE 20 MG TAB PO SCH (06:04)
[2022-02-26] MEDS: CATHETER FLUSH 10 ML SYR IV SCH ×3 (06:05→22:05)
[2022-02-26] MEDS: inSUlin ASPART (NovoLOG) 1 UNIT/0.01 ML (CHARGE PER UNIT) SC SCH ×4 (06:05→23:56)
[2022-02-26] MEDS: MAGNESIUM 1 GM/100 ML IVPB 100 ML IV SCH (06:05)
[2022-02-26] MEDS: FUROSEMIDE 40 MG (LASIX) TAB PO SCH (07:58)
[2022-02-26] MEDS: AMIODARONE 200 MG (CORDARONE) TAB PO SCH ×2 (07:58→20:37)
[2022-02-26] MEDS: NICOTINE 21 MG (NICODERM) PATCH TD SCH (07:58)
[2022-02-26] MEDS: guaiFENesin (MUCINEX) 600 MG TAB PO SCH ×2 (07:58→20:36)
[2022-02-26] MEDS: DOCUSATE SODIUM 10 MG/ML 10 ML UDC (COLACE) GT SCH ×2 (07:59→20:36)
[2022-02-26] MEDS: oxyCODONE ER 10 MG (OxyCONTIN CR) TAB PO SCH ×2 (07:59→20:37)
[2022-02-26] MEDS: PANTOPRAZOLE 40 MG (PROTONIX) VIAL IV SCH (07:59)
[2022-02-26] MEDS ORDERED: KCL 20 MEQ TAB (K-DUR) PO ONE ×2 (08:00→10:00)
[2022-02-26] MEDS: NICOTINE PATCH REMOVAL TP SCH (08:00)
[2022-02-26] MEDS: polyethylene glycoL POWDER 17 GM (MIRALAX) PACK PO SCH ×2 (08:52→20:36)
--- NOTE | 2022-02-26 09:07 | Speech Therapy Daily Note ---
Speech Daily Progress Note Subjective Date Seen by Provider: February 26, 2022 Time Seen by Provider: 08:28 The patient was seated upright in bed, asleep with hand in his breakfast tray and residual of pureed eggs in the oral cavity. The patient woke with a verbal greeting from the clinician. - The clinician reviewed the recommendation and placed order of "feeding assistance" was reviewed with the patient. The patient stated he "needed to be able to do it at some point" and the clinician discussed the recommendation was not to discourage the patient from attempting to self-feed but rather to ensure the patient was at an appropriate alertness level for P.O. intake (as the keren machuca was found asleep with his breakfast tray upon the clinician's entrance on this date, details above). The recommendation of feeding assistance was shared with the RN following the initial documentation, documented in the patient's chart on 02/25/22 and placed on the in-room white board. - The patient's recommendation is for nectar-thick liquids. The recommendations is placed in the patient's chart, written on the patient's in room white board, discussed with the RN following the completion of the bedside swallowing evaluation, and documented as a physician order. Regardless, a large cup with thin liquid (water) and the patient's mug of thin liquid (water) was found at bedside. The clinician disposed of each. The patient's client care coordinator was present at the initiation of the session. The findings above and recommendations were shared with the patient client care coordinator, who verbalized comprehension. Objective The patient is currently receiving 3L of high flow oxygen via nasal cannula with SpO2% above 90% prior to, during, and following P.O. trials. The patient attempted to self-feed, however, was unable to bring the spoon to the oral cavity on this date. Due to this, the clinician assisted the patient with feeding and remained present to provide supervision for overall patient safety. The patient consumed pureed sausage, pureed scrambled eggs, and nectar-thick milk via straw. No s/s of suspected aspiration were demonstrated with any consistency tested. The patient's vocal quality remained clear following each swallow. Recommendations: - Dysphagia one (pureed) consistency diet with mildly thick (nectar-thick) liquids, as tolerated. - Fully upright and alert for P.O. intake. - Full, 1:1, feeding assistance and supervision to aid in feeding ability (when necessary) and ensure appropriate levels of alertness. - Small, single bites and sips. - Crush medication and place in puree for administration. - Monitor for s/s of suspected aspiration with P.O. intake. If demonstrated, contact speech pathology. Assessment Assessment Current Status: Good Progress Treatment Plan Continue Plan of Care Speech Short Term Goals Short Term Goals Short Term Goals 1. The patient, staff, and family will follow safe swallowing strategies with 90% accuracy, independently. Time Frame-STG: Five Days. Speech Work Order Sorting Clerk Goals Correction Goals 1. The patient will tolerate the least restrictive diet consistency without s/s of suspected aspiration with P.O. intake. Time Frame: One Week. Speech-Plan Treatment Plan Speech Therapy Treatment Plan: Continue Plan of Care Treatment Duration: March 11, 2022 Frequency: 2 times per week Estimated Hrs Per Day: .25 hour per day Rehab Potential: Guarded Pt/Family Agrees to Plan: Yes Safety Risks/Education Teaching Recipient: Patient Teaching Methods: Discussion Response to Teaching: Reinforcement Needed Education Topics Provided: Safe Swallowing Strategies Time Speech Therapy Time In: 08:28 Speech Therapy Time Out: 08:56 Total Billed Time: 28 Billed Treatment Time 1, DYST SWAPNA Jin February 26, 2022 09:07
--- NOTE | 2022-02-26 09:31 | Cardiology Progress Note ---
Progress Note-Cardiology Events since last exam Date Seen by Provider: February 26, 2022 Time Seen by Provider: 09:29 Events since last exam I am following him due to atrial fibrillation and nonsustained ventricular t achycardia. He remains in the intensive care unit but in the past 24 hours has been transitioned from high flow Vapotherm oxygen to nasal cannula oxygen. He feels as though his strength and breathing continues to improve daily. He denies chest pain, palpitations, syncope, or ankle edema. Certain portions of this document may have been dictated utilizing voice recognition technology. Inherent to this technology, typographical and grammatical errors may exist. As much as I am diligent to identify and correct these mistakes, some errors may remain in the document. Vitals Last set of Vitals Signs Vital Signs 02/25/22 02/26/22 21:54 12:20 Temp 36.0 Pulse 82 Resp 20 B/P (MAP) 126/71 Pulse Ox 96 O2 Delivery High Flow N/C O2 Flow Rate 3.00 FiO2 40 Labs Labs Laboratory Tests 02/26/22 05:00 Exam Vital Signs Vital Signs Date Time Temp Pulse Resp B/P (MAP) Pulse Ox O2 Delivery O2 Flow Rate FiO2 02/26/22 12:20 36.0 82 20 126/71 96 High Flow N/C 3.00 02/25/22 21:54 40 Physical Exam General: Alert. No acute distress. He is obese. He is wearing oxygen by nasal cannula. Eye: No xanthelasma. HENT: Normocephalic. Neck: Jugular venous pressure does not appear elevated. Respiratory: Lungs are clear to auscultation but with diffusely decreased breath sounds. Respirations are non-labored. Breath sounds are equal. Symmetrical chest wall expansion. Cardiovascular: Normal rate. Regular rhythm. No murmur. No gallop. No edema. Gastrointestinal: Soft. Normal bowel sounds. Skin: Warm. Dry. Neurologic: Alert and oriented to person, place, time. Cranial nerves 3-11 grossly intact. Psychiatric: Cooperative. Appropriate mood & affect. Labs Laboratory Tests Test 02/25/22 17:02 02/25/22 23:39 02/26/22 04:13 02/26/22 05:00 Range/Units Glucometer 147 H 110 70-110 MG/DL Blood Gas Puncture Site RIGHT RADIAL Blood Gas Patient Temperature 36 Arterial Blood pH 7.49 H 7.37-7.43 Arterial Blood Partial Pressure CO2 39 35-45 MMHG Arterial Blood Partial Pressure O2 38 *L 79-93 MMHG Arterial Blood HCO3 30 H 23-27 MMOL/L Arterial Blood Total CO2 31.1 H 21.0-31.0 MMOL/L Arterial Blood Oxygen Saturation 75 L 94-100 % Arterial Blood Base Excess 6.1 H -2.5-2.5 MMOL/L Jarad Test POSITIVE Blood Gas Ventilator Setting NO Blood Gas Inspired Oxygen 3L NC White Blood Count 9.9 4.3-11.0 10^3/uL Red Blood Count 4.03 L 4.30-5.52 10^6/uL Hemoglobin 12.4 L 13.3-17.7 g/dL Hematocrit 38 L 40-54 % Mean Corpuscular Volume 94 80-99 fL Mean Corpuscular Hemoglobin 31 25-34 pg Mean Corpuscular Hemoglobin Concent 33 32-36 g/dL Red Cell Distribution Width 15.9 H 10.0-14.5 % Platelet Count 117 L 130-400 10^3/uL Mean Platelet Volume 11.5 9.0-12.2 fL Immature Granulocyte % (Auto) 3 % Neutrophils (%) (Auto) 83 H 42-75 % Lymphocytes (%) (Auto) 9 L 12-44 % Monocytes (%) (Auto) 5 0-12 % Eosinophils (%) (Auto) 0 0-10 % Basophils (%) (Auto) 0 0-10 % Neutrophils # (Auto) 8.2 H 1.8-7.8 10^3/uL Lymphocytes # (Auto) 0.9 L 1.0-4.0 10^3/uL Monocytes # (Auto) 0.5 0.0-1.0 10^3/uL Eosinophils # (Auto) 0.0 0.0-0.3 10^3/uL Basophils # (Auto) 0.0 0.0-0.1 10^3/uL Immature Granulocyte # (Auto) 0.3 H 0.0-0.1 10^3/uL Neutrophils % (Manual) 80 % Lymphocytes % (Manual) 13 % Monocytes % (Manual) 4 % Band Neutrophils 2 % Atypical Lymphocytes 1 % Anisocytosis SLIGHT Microcytosis SLIGHT Sodium Level 143 135-145 MMOL/L Potassium Level 3.3 L 3.6-5.0 MMOL/L Chloride Level 106 98-107 MMOL/L Carbon Dioxide Level 26 21-32 MMOL/L Anion Gap 11 5-14 MMOL/L Blood Urea Nitrogen 23 H 7-18 MG/DL Creatinine 0.65 0.60-1.30 MG/DL Estimat Glomerular Filtration Rate 104 BUN/Creatinine Ratio 35 Glucose Level 114 H 70-105 MG/DL Calcium Level 8.4 L 8.5-10.1 MG/DL Corrected Calcium 9.0 8.5-10.1 MG/DL Magnesium Level 2.0 1.6-2.4 MG/DL Total Bilirubin 1.2 H 0.1-1.0 MG/DL Aspartate Amino Transf (AST/SGOT) 53 H 5-34 U/L Alanine Aminotransferase (ALT/SGPT) 101 H 0-55 U/L Alkaline Phosphatase 65 40-136 U/L Total Protein 5.5 L 6.4-8.2 GM/DL Albumin 3.2 3.2-4.5 GM/DL Test 02/26/22 11:42 Range/Units Glucometer 168 H 70-110 MG/DL Diagnosis/Problems Diagnosis/Problems (1) Paroxysmal atrial fibrillation Status: Acute Assessment & Plan: He developed atrial fibrillation on 02/23. He had persistent tachycardia despite high-dose of intravenous diltiazem as well as an amiodarone infusion. As such, I had him undergo a cardioversion on 02/23 which was successful. He has remained in sinus rhythm since that time. I transitioned the intravenous amiodarone over to oral amiodarone. I stopped the intravenous diltiazem infusion. I suspect the atrial fibrillation was brought on by his acute, noncardiac illness. The atrial fibrillation lasted for less than 24 hours. As such, I do not see any strong indication for oral anticoagulation at this time. We will need to taper the amiodarone over time. (2) Ventricular tachycardia Assessment & Plan: I suspect this was brought on by hypoxia that occurred during lightening of his sedation and weaning trials prior to his extubation. He had an echocardiogram during this hospitalization that shows a normal ejection fraction. His magnesium level is normal but his potassium level was slightly low. I would try to keep his potassium level closer to 4. Continue diltiazem. He may need an ischemic evaluation once he recovers from this acute illness. This could certainly be done as an outpatient by his regular commercial portfolio manager at the outside facility in [place], [place]. (3) Chronic heart failure with preserved ejection fraction (HFpEF) Assessment & Plan: His chest x-ray seems to be improving. I recommend he continue on the oral furosemide. I had given him 2 daily doses of intravenous f urosemide on 02/22 and 02/23. I will hold off on any further intravenous furosemide at this time. (4) Pulmonary hypertension Assessment & Plan: He has severe pulmonary hypertension as noted on his echocardiogram earlier in this hospitalization. I suspect this is due to his chronic obstructive pulmonary disease and chronic hypoxic respiratory failure. He may benefit from home oxygen if he has not already been using this. He needs to quit smoking. (5) Primary hypertension Assessment & Plan: Continue diltiazem. He has been receiving short acting diltiazem before and after being extubated. This can be changed back to diltiazem CD once he can swallow pills more easily. (6) Mixed hyperlipidemia Assessment & Plan: He was taking atorvastatin at home which should be continued. (7) Acute and chronic respiratory failure with hypoxia Status: Acute Assessment & Plan: Most likely due to his chronic obstructive pulmonary disease and possibly a mild component of his chronic heart failure. The hospitalist and eICU are managing his pulmonary status. (8) Cigarette smoker Assessment & Plan: He needs to quit smoking. He seems to understand that this will be imperative. He stated that he is done with smoking. CAROL LEWIS JR, MD February 26, 2022 09:31
--- NOTE | 2022-02-26 09:36 | Tele-ICU Progress Note ---
Subjective Date Seen by a Provider: February 26, 2022 Time Seen by a Provider: 09:36 Subjective/Events-last exam (Tele-ICU Physician , Progress Note ) Available chart/ vitals / labs / Images reviewed Video assessment done using teleICU camera, rest of exam as per RN Discussed with RN , EXAM PER RN Events overnight : Afebrile - 37 FiO2 - VT 30L 55% I/O = neg 2500 Drips: Pressors: , hemodynamically stable Consultants: Hospital course: (02/12) 66 y/o make admitted for CHF, COPD exac. pneumonia (02/14) transferred to ICU, worsening resp status. bipap applied (02/15) Avaps. (02/17) Emergently intubated @ 1234 02/22- 55% peep 8 - failed SBT with agitation (02/23) extubated 0715 (placed to HFNC) (02/23) AFIB RVR on amiodarone and cardizem gtt// failed cardvsn and vapotherm.//Now on bipap and debi 02/24 US LE neg 02/25VT 30L 55%, started PO 02/26 - 4L o2 A/P Acute resp failure ( CTA 02/12 - no pe , small effusions -NC 4 l - cont to diurese , po steroid , IS AECOPD - prednisone 40 -duoneb q 4 LRTI - sputum 02/17 - ususl ravi - cefepime 02/23-12 Pulm HTN - ECHO 02/14 - RVSP 70 mmHg - cont diuresis , lasix po qd Hypernatremia - po SASKIA - 02/16 - resolved left apical bandlike opacity - for follow as outpt by PCP Lines : peripf (Central Line Necessity Reviewed) Vanessa: + OG: Nutrition: po 02/25 Analgesia: Anxiety/ delirium VTE Prophylaxis: promise 40 Stress Ulcer Prophylaxis: ppi Plans in collaboration with bedside consultants and IM MDs. Discussed with RN to reach out if any questions or concerns A total of 31minutes of critical care time was devoted to this patient today, required to treat and/or prevent further deterioration of critical care condition ( as above) . Sepsis Event Evaluation Height, Weight, BMI Height: '" Weight: lbs. oz. kg; 30.04 BMI Method: Focused Exam Lactate Level 02/23/22 19:44: Lactic Acid Level 1.78 Exam Exam Patient acknowledged, consented, and participated in this virtual visit which was conducted using real time audio/video Vital Signs Date Time Temp Pulse Resp B/P (MAP) Pulse Ox O2 Delivery O2 Flow Rate FiO2 02/26/22 09:00 98 18 118/77 98 High Flow N/C 3.00 02/26/22 08:00 93 12 143/79 100 High Flow N/C 3.00 02/26/22 08:00 36.1 02/26/22 07:47 100 Nasal Cannula 4.00 02/26/22 07:45 High Flow N/C 3.00 02/26/22 07:36 86 02/26/22 07:00 89 29 123/69 93 High Flow N/C 4.00 02/26/22 06:00 96 21 136/79 90 High Flow N/C 4.00 02/26/22 05:58 High Flow N/C 4.00 02/26/22 05:00 97 19 139/84 91 High Flow N/C 3.00 02/26/22 04:04 90 High Flow N/C 3.00 02/26/22 04:00 101 15 133/80 91 High Flow N/C 3.00 02/26/22 03:34 36.0 High Flow N/C 3.00 02/26/22 03:00 101 19 127/72 92 High Flow N/C 3.00 02/26/22 02:00 94 18 123/76 100 High Flow N/C 3.00 02/26/22 01:51 94 Nasal Cannula 3.00 02/26/22 01:00 101 02/26/22 01:00 101 22 150/85 95 High Flow N/C 3.00 02/26/22 00:35 98 23 161/88 High Flow N/C 3.00 02/25/22 23:42 36.1 High Flow N/C 3.00 02/25/22 23:42 94 High Flow N/C 3.00 02/25/22 23:00 93 14 121/72 94 Nasal Cannula 3.00 02/25/22 22:00 97 16 126/73 97 Nasal Cannula 3.00 02/25/22 21:54 94 Vapotherm 20.00 40 02/25/22 21:00 111 20 118/71 95 Vapotherm 20.00 40.00 02/25/22 20:03 93 Vapotherm 20.00 40 02/25/22 20:00 104 18 113/84 95 Vapotherm 20.00 40.00 02/25/22 19:40 Vapotherm 20.00 40.00 02/25/22 19:33 35.9 02/25/22 19:00 104 02/25/22 19:00 Vapotherm 25.00 50.00 02/25/22 19:00 104 14 135/79 96 Vapotherm 25.00 50.00 02/25/22 18:29 15 95 Vapotherm 25.00 50.00 02/25/22 18:26 97 Vapotherm 30.00 55 02/25/22 18:00 101 21 125/74 98 Vapotherm 30.00 55.00 02/25/22 17:00 100 10 137/81 97 Vapotherm 30.00 55.00 02/25/22 16:00 94 Vapotherm 30.00 55 02/25/22 16:00 98 17 117/69 96 Vapotherm 30.00 70.00 02/25/22 15:38 35.6 02/25/22 15:00 96 15 118/71 98 Vapotherm 30.00 70.00 02/25/22 14:33 98 Vapotherm 30.00 55 02/25/22 14:00 94 13 117/68 95 Vapotherm 30.00 70.00 02/25/22 13:00 96 14 115/75 94 Vapotherm 30.00 70.00 02/25/22 12:58 95 02/25/22 12:00 95 Vapotherm 30.00 55 02/25/22 12:00 95 21 126/88 97 Vapotherm 30.00 70.00 02/25/22 11:30 35.8 02/25/22 11:00 91 107/71 95 Vapotherm 30.00 70.00 02/25/22 10:58 96 Vapotherm 30.00 55 02/25/22 10:00 100 14 130/86 97 Vapotherm 30.00 70.00 I & O 02/26/22 07:00 Intake Total 1040 ml Output Total 3550 ml Balance -2510 ml Height & Weight Height: '" Weight: lbs. oz. kg; 30.04 BMI Method: General Appearance: Anxious, Chronically ill, Mild Distress HEENT: PERRL/EOMI, Normal ENT Inspection Neck: Normal Inspection; No JVD Respiratory: No Accessory Muscle Use, No Respiratory Distress, Accessory Muscle Use, Decreased Breath Sounds Cardiovascular: Regular Rate, Rhythm Capillary Refill: Less Than 3 Seconds Gastrointestinal: soft Extremity: Normal Inspection, Non Tender, No Pedal Edema Neurologic/Psychiatric: Alert, Oriented x3, No Motor/Sensory Deficits, Normal Mood/Affect Skin: Normal Color, Warm/Dry Results Lab Laboratory Tests 02/25/22 04:55 02/26/22 05:00 Assessment/Plan Assessment/Plan ` IGNACIO ALDRICH MD February 26, 2022 09:36
--- NOTE | 2022-02-26 09:52 | Physical Therapy Daily Note ---
PT Daily Note-Current Subjective Patient is in bed and agrees to PT. Mental Status Patient Orientation: Person, Time, Situation Attachments: SCD's, Oxygen, Vanessa Catheter Transfers SCALE: Activities may be completed with or without assistive devices. 1-Sdxhxzinwx-yjwtzsy completes the activity by him/herself with no assistance from a helper. 5-Set-up or Clean-up Assistance-helper sets up or cleans up; patient completes activity. [place] assists only prior to or following the activity. 4-Supervision or Touching Assistance-helper provides verbal cues and/or touching/steadying and/or contact guard assistance as patient completes activi ty. Assistance may be provided throughout the activity or intermittently. 3-Partial/Moderate Assistance-helper does LESS THAN HALF the effort. [place] lifts, holds or supports trunk or limbs, but provides less than half the effort. 2-Substantial/Maximal Assistance-helper does MORE THAN HALF the effort. [place] lifts or holds trunk or limbs and provides more than half the effort. 4-Vhdbygffl-yfqrrj does ALL the effort. Patient does none of the effort to complete the activity. Or, the assistance of 2 or more helpers is required for the patient to complete the activity. If activity was not attempted, code reason: 7-Patient Refused. 9-Not Applicable-not attempted and the patient did not perform the activity before the current illness, exacerbation or injury. 10-Not Attempted due to Environmental Limitations-(lack of equipment, weather restraints, etc.). 88-Not Attempted due to Medical Conditions or Safety Concerns. Roll Left & Right (QC): 1 (x 2) Sit to Lying (QC): 1 (x 2) Lying to Sitting/Side of Bed(Q: 1 (x 2) Exercises Supine Ex: Ankle pumps, Heel Slides, Straight leg raise, Hip abd/add Supine Reps: 15 (AAROM x 2 sets) Assessment Patient sat EOB x 5 minutes with minimal assist to maintain. Patient slowly progressing with gross motor skills. PT Short Term Goals Short Term Goals Time Frame: March 16, 2022 Roll Left & Right: 3 Sit to lyin Lying to sitting on side of be: 3 Sit to stand: 3 Chair/tnb-dh-whkzb transfer: 3 Toilet transfer: 3 Walk 10 feet: 3 PT Wet Finisher Wool Goals Wet Finisher Wool Goals PT Wet Finisher Wool Goals Time Frame: Apr 06, 2022 Roll Left & Right (QC): 6 Sit to Lying (QC): 6 Lying-Sitting on Side/Bed(QC): 6 Sit to Stand (QC): 6 Chair/Rsl-ue-Syzoi Xfer(QC): 6 Toilet Transfer (QC): 6 Car Transfer (QC): 6 Walk 10 feet (QC): 6 Walk 50ft with 2 Turns (QC): 6 Walk 150 ft (QC): 6 PT Plan Treatment/Plan Treatment Plan: Continue Plan of Care Treatment Plan: Bed Mobility, Education, Functional Activity Yvette, Functional Strength, Gait, Safety, Therapeutic Exercise, Transfers Treatment Duration: Apr 06, 2022 Frequency: 6 times per week Estimated Hrs Per Day: .25 hour per day Patient and/or Family Agrees t: Yes Time/GCodes Time In: 735 Time Out: 747 Total Billed Treatment Time: 12 Total Billed Treatment 1 visit EX 12 min DOUGLAS WILEY PT February 26, 2022 09:52
[2022-02-26 13:34] VITALS: BP 126/71
--- NOTE | 2022-02-26 14:07 | Occupational Ther Daily Note ---
OT Current Status-Daily Note Subjective Pt in bed, agreeable to OT tx. 2 visitors present during tx. Pt doesn't appear to comprehend/understand current medical status, as he requests to go into the bathroom to use toilet. Pt has been unable to stand with PT, and requires total assist x2 to transfer to EOB, and assist to maintain sitting balance. Pt is unsafe to transfer to bathroom at this time. Mental Status/Objective Patient Orientation: Person, Place, Situation Attachments: Vanessa Catheter ADL-Treatment Therapy Code Descriptions/Definitions Functional [place] Measure: 0=Not Assessed/NA 4=Minimal Assistance 1=Total Assistance 5=Supervision or Setup 2=Maximal Assistance 6=Modified [place] 3=Moderate Assistance 7=Complete IndependenceSCALE: Activities may be completed with or without assistive devices. 0-Jregrlqghx-xrrgqmp completes the activity by him/herself with no assistance from a helper. 5-Set-up or Clean-up Assistance-helper sets up or cleans up; patient completes activity. [place] assists only prior to or following the activity. 4-Supervision or Touching Assistance-helper provides verbal cues and/or touching/steadying and/or contact guard assistance as patient completes activity. Assistance may be provided throughout the activity or intermittently. 3-Partial/Moderate Assistance-helper does LESS THAN HALF the effort. [place] lifts, holds or supports trunk or limbs, but provides less than half the effort. 2-Substantial/Maximal Assistance-helper does MORE THAN HALF the effort. [place] lifts or holds trunk or limbs and provides more than half the effort. 5-Nwqauvxls-fdbxxb does ALL the effort. Patient does none of the effort to complete the activity. Or, the assistance of 2 or more helpers is required for the patient to complete the activity. If activity was not attempted, code reason: 7-Patient Refused. 9-Not Applicable-not attempted and the patient did not perform the activity before the current illness, exacerbation or injury. 10-Not Attempted due to Environmental Limitations-(lack of equipment, weather restraints, etc.). 88-Not Attempted due to Medical Conditions or Safety Concerns. Toileting Hygiene (QC): 1 Other Treatment Pt in bed, agreeable to OT Tx with focus on increasing BUE strength and activity tolerance. Pt completed x10 reps each of the following AAROM exercises, BUES: Shoulder flexion, elbow flexion/extension. Pt required verbal cues for technique and pace with exercises. Pt requests to get up to bathroom. OT informed pt about current condition and requiring 2 person assistance to get to EOB, and how pt has not stood yet. Pt agreeable to bed young, but he doesn't seem to fully understand/comprehend current medical condition. Pt rolled towards L side, bed young placed. Post tx, pt in bed, call light in reach and all needs met, nurse erendira re of pt position. Education OT Patient Education: Correct positioning, Disease process, Energy conservation, Exercise program, Modified ADL techniques, Progress toward Goal/Update tx plan, Purpose of tx/functional activities Teaching Recipient: Patient Teaching Methods: Discussion Response to Teaching: Reinforcement Needed OT Longterm Goals Filter Operator Goals Time Frame: March 15, 2022 Eating (QC): 5 Oral Hygiene (QC): 5 Toileting Hygiene (QC): 4 Shower/Bathe Self (QC): 3 Upper Body Dressing (QC): 4 Lower Body Dressing (QC): 3 On/Off Footwear (QC): 3 Additional Goals: 1-Demonstrate ADL Tasks, 2-Verbalize Understanding, 3- ImproveStrength/Yvette 1=Demonstrate adherence to instructed precautions during ADL tasks. 2=Patient will verbalize/demonstrate understanding of assistive devices/modifications for ADL. 3=Patient will improve strength/tolerance for activity to enable patient to perform ADL's. OT Education/Plan Problem List/Assessment Assessment: Decreased Activ Tolerance, Decreased Safety Aware, Decreased UE Strength, Impaired Cognition, Impaired Funct Balance, Impaired I ADL's, Impaired Self-Care Skills Discharge Recommendations Plan/Recommendations: Continue POC Treatment Plan/Plan of Care Patient would benefit from OT for education, treatment and training to promote independence in ADL's, mobility, safety and/or upper extremity function for ADL's. Plan of Care: ADL Retraining, Functional Mobility, UE Funct Exercise/Act Treatment Duration: March 15, 2022 Frequency: 3 times per week (3-5 times per week) Estimated Hrs Per Day: .25 hour per day Rehab Potential: Guarded Time/GCodes Start Time: 13:12 Stop Time: 13:26 Total Time Billed (hr/min): 14 Billed Treatment Time 1, EX NICOLAS ALEX OT February 26, 2022 14:07
[2022-02-26 15:25] VITALS: BP 111/73
[2022-02-26] MEDS: IBUPROFEN TABLET 200 MG TAB PO PRN (18:28)
[2022-02-26 19:10] VITALS: BP 133/62
--- NOTE | 2022-02-26 20:19 | Progress Note ---
Subjective Subjective/Events-last exam Patient states that he feels better this AM. He is on NC this AM. Tolerating PO diet. States that he is still very weak. Review of Systems General: Malaise Pulmonary: Dyspnea Neurological: Weakness, Incoordination Objective Exam Last Set of Vital Signs Vital Signs Date Time Temp Pulse Resp B/P (MAP) Pulse Ox O2 Delivery O2 Flow Rate FiO2 02/26/22 19:10 36.8 76 18 133/62 (85) 96 High Flow N/C 3.00 02/25/22 21:54 40 Capillary Refill : Less Than 3 Seconds I&O Intake and Output 02/26/22 00:00 Intake Total 860 ml Output Total 3325 ml Balance -2465 ml Intake Oral 860 ml Output Urine Total 3325 ml General: Alert, Oriented X3, Moderate Distress Lungs: Other (Diminished breath sounds throughout, no crackles diffuse wheezing) Heart: Regular Rate, No Murmurs Abdomen: Soft, No Tenderness, No Masses Extremities: No Edema, No Tenderness/Swelling Neuro: Normal Speech Results/Procedures Lab Laboratory Tests 02/25/22 23:39: Glucometer 110 02/26/22 04:13: Blood Gas Puncture Site RIGHT RADIAL, Blood Gas Patient Temperature 36, Arterial Blood pH 7.49H, Arterial Blood Partial Pressure CO2 39, Arterial Blood Partial Pressure O2 38*L, Arterial Blood HCO3 30H, Arterial Blood Total CO2 31.1H, Arterial Blood Oxygen Saturation 75L, Arterial Blood Base Excess 6.1H, Jarad Test POSITIVE, Blood Gas Ventilator Setting NO, Blood Gas Inspired Oxygen 3L NC 02/26/22 05:00: White Blood Count 9.9, Red Blood Count 4.03L, Hemoglobin 12.4L, Hematocrit 38L, Mean Corpuscular Volume 94, Mean Corpuscular Hemoglobin 31, Mean Corpuscular Hemoglobin Concent 33, Red Cell Distribution Width 15.9H, Platelet Count 117L, Mean Platelet Volume 11.5, Immature Granulocyte % (Auto) 3, Neutrophils (%) (Auto) 83H, Lymphocytes (%) (Auto) 9L, Monocytes (%) (Auto) 5, Eosinophils (%) (Auto) 0, Basophils (%) (Auto) 0, Neutrophils # (Auto) 8.2H, Lymphocytes # (Auto) 0.9L, Monocytes # (Auto) 0.5, Eosinophils # (Auto) 0.0, Basophils # (Auto) 0.0, Immature Granulocyte # (Auto) 0.3H, Neutrophils % (Manual) 80, Lymphocytes % (Manual) 13, Monocytes % (Manual) 4, Band Neutrophils 2, Atypical Lymphocytes 1, Anisocytosis SLIGHT, Microcytosis SLIGHT, Sodium Level 143, Potassium Level 3.3L, Chloride Level 106, Carbon Dioxide Level 26, Anion Gap 11, Blood Urea Nitrogen 23H, Creatinine 0.65, Estimat Glomerular Filtration Rate 104, BUN/Creatinine Ratio 35, Glucose Level 114H, Calcium Level 8.4L, Corrected Calcium 9.0, Magnesium Level 2.0, Total Bilirubin 1.2H, Aspartate Amino Transf (AST/SGOT) 53H, Alanine Aminotransferase (ALT/SGPT) 101H, Alkaline Phosphatase 65, Total Protein 5.5L, Albumin 3.2 02/26/22 11:42: Glucometer 168H 02/26/22 18:16: Glucometer 143H Microbiology 02/23/22 Blood Culture - Preliminary, Resulted No growth 02/17/22 Gram Stain - Final, Complete 02/17/22 Sputum Culture - Final, Complete Usual upper respiratory ravi Radiology Date of Exam:02/12/22 CT ANGIO CHEST W PROCEDURE: CT angiography Chest TECHNIQUE: After intravenous administration of contrast, thin section axial CT angiography of the chest was performed. 3D MIP reconstructions were made. All CT scans use one or more of the following dose optimizing techniques: automated exposure control, MA and/or KvP adjustment based on a patient size and exam type, or iterative reconstruction. INDICATION: Chest pain, cough and shortness of air COMPARISON: Chest radiograph from earlier same day. FINDINGS: Vasculature: No pulmonary emboli. No CT evidence of pulmonary hypertension or right ventricular strain. Thoracic aorta is normal in caliber. No aortic dissection or pseudoaneurysm. Heart and mediastinum: Visualized thyroid is normal. No supraclavicular, axillary, or intra-thoracic lymphadenopathy. The heart is normal in size without pericardial effusion. Dense mitral annulus calcifications are present. Calcification is also present in the aortic valve leaflets. Pleura: Small left and trace right pleural effusions. Lungs and airway: Severe centrilobular emphysema is present. Bandlike opacities are present in the left apex with architectural distortion. There are few patchy centrilobular micro-nodules and groundglass in the left upper lobe as well. No interlobular septal thickening. Upper abdomen: Allowing for the phase of contrast, no acute abnormality in the upper abdomen is seen. Musculoskeletal: No concerning osseous lesion. IMPRESSION: 1. No pulmonary emboli or acute aortic syndrome. 2. Left upper lobe scattered centrilobular opacities and nodules are likely due to an infectious process. 3. Severe emphysema with left apical bandlike opacity and architectural distortion. This is likely due to an area of scar, but no prior imaging is available to document stability. Therefore, advise followup CT chest without contrast in 3 months to reassess 4. Small left and trace right pleural effusions. 5. Calcified aortic valve leaflets can be seen with aortic stenosis. Dictated by: Dictated on workstation # [id number] Dict: 02/12/22 1117 Trans: 02/12/22 112 CVB [id number] Interpreted by: EDGAR ESCOBEDO MD Electronically signed by: EDGAR ESCOBEDO MD 02/12/22 1127 Assessment/Plan Assessment/Plan (1) Acute and chronic respiratory failure with hypoxia Status: Acute Assessment & Plan: 02/25: Extubated Friday, bipap friday and currently on Vapotherm, Still considering LTAC given very low exercise tolerance and likely will need long wean 02/26: Patient on NC today, Will transfer out of ICU today but he remains guarded due to severe end stage COPD, will place ARU referral (2) COPD exacerbation Status: Acute Assessment & Plan: 02/25: End stage COPD, poor prognosis (3) PNA (pneumonia) Status: Acute Qualifiers: Qualified Codes: J18.9 - Pneumonia, unspecified organism (4) Lower extremity weakness Status: Acute Assessment & Plan: - Will order PT 02/26: Patient will need ARU vs SNF at d/c Qualifiers: Qualified Codes: R29.898 - Other symptoms and signs involving the musculoskeletal system (5) Paroxysmal atrial fibrillation Status: Acute Assessment & Plan: 02/25: Cardiology consulted and managing, appreciate recommendations (6) HLD (hyperlipidemia) Status: Chronic Assessment & Plan: - Continue home meds (7) HTN (hypertension) Status: Chronic Assessment & Plan: - Holding home bp meds due to normotension and risk of developing sepsis (8) DVT prophylaxis Status: Acute Assessment & Plan: - lovenox Clinical Quality Measures AMI/AHF: ASA po Prior to arrival: JEAN MARIE Bennett MD February 26, 2022 20:19
[2022-02-26] MEDS: ENOXAPARIN 40 MG/0.4 ML (LOVENOX) SYR SQ SCH (20:37)
[2022-02-26 23:52] VITALS: BP 166/70
[2022-02-27] MEDS: RT-ALBUTEROL/IPRATROPIUM 3 ML (DUONEB) VIAL INH SCH ×6 (02:18→22:01)
[2022-02-27] MEDS: CEFEPIME INJECTION 1,000 MG in NS (IVPB) 50 ML IV SCH ×4 (03:46→20:56)
[2022-02-27 03:47] VITALS: BP 146/87
[2022-02-27] MEDS: CATHETER FLUSH 10 ML SYR IV SCH ×3 (03:47→20:58)
[2022-02-27] MEDS: HYDROcodone/APAP 7.5 MG/325 MG (LORTAB, LORCET PLUS) TABLET PO PRN ×2 (03:53→13:49)
[2022-02-27] MEDS: inSUlin ASPART (NovoLOG) 1 UNIT/0.01 ML (CHARGE PER UNIT) SC SCH ×3 (05:16→17:57)
[2022-02-27] MEDS: predniSONE 20 MG TAB PO SCH (06:13)
[2022-02-27 06:16] VITALS: BP 160/85
[2022-02-27 07:26] VITALS: BP 137/75
[2022-02-27] MEDS: oxyCODONE ER 10 MG (OxyCONTIN CR) TAB PO SCH ×2 (08:06→20:57)
[2022-02-27] MEDS: polyethylene glycoL POWDER 17 GM (MIRALAX) PACK PO SCH ×2 (08:07→20:00)
[2022-02-27] MEDS: NICOTINE 21 MG (NICODERM) PATCH TD SCH (08:07)
[2022-02-27] MEDS: AMIODARONE 200 MG (CORDARONE) TAB PO SCH ×2 (08:07→20:57)
[2022-02-27] MEDS: DOCUSATE SODIUM 10 MG/ML 10 ML UDC (COLACE) GT SCH ×2 (08:07→20:56)
[2022-02-27] MEDS: guaiFENesin (MUCINEX) 600 MG TAB PO SCH ×2 (08:07→20:56)
[2022-02-27] MEDS: PANTOPRAZOLE 40 MG (PROTONIX) VIAL IV SCH (08:11)
[2022-02-27] MEDS: NICOTINE PATCH REMOVAL TP SCH (08:18)
[2022-02-27 08:19] LABS: EOSINOPHILS % (AUTO) 0 % (0-10); MEAN CORPUSCULAR VOLUME 93 fL (80-99)
[2022-02-27 08:21] LABS: BASOPHILS % (AUTO) 0 % (0-10); HEMATOCRIT 39 % (40-54); HEMOGLOBIN 12.9 g/dL (13.3-17.7); LYMPHOCYTES # (AUTO) 0.4 10^3/uL (1.0-4.0); LYMPHOCYTES % (AUTO) 5 % (12-44); MEAN CORPUSCULAR HEMOGLOBIN 31 pg (25-34); MEAN CORPUSCULAR HGB CONC 33 g/dL (32-36); MEAN PLATELET VOLUME 11.2 fL (9.0-12.2); MONOCYTES # (AUTO) 0.3 10^3/uL (0.0-1.0); MONOCYTES % (AUTO) 5 % (0-12); NEUTROPHILS # (AUTO) 6.5 10^3/uL (1.8-7.8); NEUTROPHILS % (AUTO) 86 % (42-75); PLATELET COUNT 106 10^3/uL (130-400); WHITE BLOOD COUNT 7.6 10^3/uL (4.3-11.0)
[2022-02-27 08:42] LABS: ALBUMIN 3.5 GM/DL (3.2-4.5); POTASSIUM 3.5 MMOL/L (3.6-5.0)
[2022-02-27 08:44] LABS: CALCIUM 8.8 MG/DL (8.5-10.1)
[2022-02-27 08:45] LABS: TOTAL PROTEIN 6.1 GM/DL (6.4-8.2)
[2022-02-27 08:47] LABS: BILIRUBIN,TOTAL 1.3 MG/DL (0.1-1.0)
[2022-02-27 08:48] LABS: CREATININE SERUM 0.65 MG/DL (0.60-1.30)
[2022-02-27] MEDS: MAGNESIUM 1 GM/100 ML IVPB 100 ML IV SCH (08:57)
[2022-02-27] MEDS: POTASSIUM CL 10MEQ/50ML IVPB 50 ML IV SCH (08:57)
[2022-02-27] MEDS: KCL 20 MEQ TAB (K-DUR) PO SCH (08:58)
[2022-02-27] MEDS ORDERED: KCL 20 MEQ TAB (K-DUR) PO ONE (09:00)
--- NOTE | 2022-02-27 09:46 | Speech Therapy Daily Note ---
Speech Daily Progress Note Subjective Date Seen by Provider: February 27, 2022 Time Seen by Provider: 09:15 The patient was lying in bed, awake and alert upon entrance to his room by the clinician. The patient greeted the clinician appropriately and was agreeable to participation in the dysphagia treatment session. The patient's was present at bedside and remains throughout the skilled treatment. The patient is currently receiving supplemental oxygen via nasal cannula at a rate of 3 lpm. Objective The patient was positioned upright in bed for safe swallowing. The patient reported excellent tolerance of his current diet consistency of pureed with nectar-thick liquids, denying the presence of s/s of suspected aspiration. The patient was provided multiple straw drinks of thin liquid, a teaspoon of puree, and a saltine cracker. Overt s/s of suspected aspiration were not demonstrated with any consistency tested. Slightly prolonged mastication was present with the saltine cracker with mild right buccal residue following. The patient was able to independently clear the residual material with a subsequent bolus of thin liquid. The patient continued to require clinician feeding due to upper extremity weakness. Recommendations: - Dysphagia two consistency diet with thin liquids, as tolerated. - Fully upright and alert for P.O. intake. - Feeding assistance through all P.O. intake due to upper extremity weakness and to conserve energy for the oropharyngeal swallow function. - Cease P.O. intake during periods of fatigue. - Small, single bites and sips. - Crush medication and place in puree for administration. - Monitor for s/s of suspected aspiration with P.O. intake. If demonstrated, contact speech pathology. The results and recommendations were discussed with the patient, the patient's and the RN following completion of the skilled treatment session. Additionally, the recommendations were placed on the in-room white board. Assessment Assessment Current Status: Fair Progress Treatment Plan Continue Plan of Care Speech Short Term Goals Short Term Goals Short Term Goals 1. The patient, staff, and family will follow safe swallowing strategies with 90% accuracy, independently. Time Frame-STG: Five Days. Speech Conservation Specialist Goals Conservation Specialist Goals 1. The patient will tolerate the least restrictive diet consistency without s/s of suspected aspiration with P.O. intake. Time Frame: One Week. Speech-Plan Treatment Plan Speech Therapy Treatment Plan: Continue Plan of Care Treatment Duration: March 11, 2022 Frequency: 2 times per week Estimated Hrs Per Day: .25 hour per day Rehab Potential: Guarded Pt/Family Agrees to Plan: Yes Safety Risks/Education Teaching Recipient: Patient, Family Teaching Methods: Discussion Response to Teaching: Reinforcement Needed Education Topics Provided: Results, Recommendations Time Speech Therapy Time In: 09:15 Speech Therapy Time Out: 09:30 Total Billed Time: 15 Billed Treatment Time 1BEATRIZ [address] ST February 27, 2022 09:46
[2022-02-27] MEDS: FUROSEMIDE 40 MG (LASIX) TAB PO SCH (09:49)
--- NOTE | 2022-02-27 09:51 | Cardiology Progress Note ---
Progress Note-Cardiology Events since last exam Date Seen by Provider: February 27, 2022 Time Seen by Provider: 09:50 Events since last exam I am following him due to atrial fibrillation and nonsustained ventricular t achycardia. He is now on the medical floor after having spent several days in the intensive care unit a few of which were on the ventilator. His breathing continues to improve. He is now on 3 L of oxygen by nasal cannula which he uses at home. He denies chest discomfort, palpitations, syncope, or ankle edema. He wants to know if he can go home today. I spoke to his at the bedside and she plans to call his regular training and development professional today to schedule a follow-up appointment in [place]. Certain portions of this document may have been dictated utilizing voice recognition technology. Inherent to this technology, typographical and grammatical errors may exist. As much as I am diligent to identify and correct these mistakes, some errors may remain in the document. Vitals Last set of Vitals Signs Vital Signs 02/25/22 02/27/22 21:54 11:18 Temp 36.6 Pulse 93 Resp 20 B/P (MAP) 130/83 (99) Pulse Ox 94 O2 Delivery High Flow N/C O2 Flow Rate 3.00 FiO2 40 Labs Labs Laboratory Tests 02/27/22 08:05 Exam Vital Signs Vital Signs Date Time Temp Pulse Resp B/P (MAP) Pulse Ox O2 Delivery O2 Flow Rate FiO2 02/27/22 11:18 36.6 93 20 130/83 (99) 94 High Flow N/C 3.00 02/25/22 21:54 40 Physical Exam General: Alert. No acute distress. Eye: No xanthelasma. HENT: Normocephalic. Neck: Jugular venous pressure does not appear elevated. Respiratory: Lungs are clear to auscultation but with diffusely decreased br eath. Respirations are non-labored. Breath sounds are equal. Symmetrical chest wall expansion. Cardiovascular: Normal rate. Regular rhythm. Distant S1/S2. 1/6 systolic ejection murmur. No gallop. No edema. Gastrointestinal: Soft. Normal bowel sounds. Skin: Warm. Dry. Neurologic: Alert and oriented to person, place, time. Cranial nerves 3-11 grossly intact. Psychiatric: Cooperative. Appropriate mood & affect. Labs Laboratory Tests Test 02/26/22 18:16 02/26/22 23:56 02/27/22 05:11 02/27/22 08:05 Range/Units Glucometer 143 H 147 H 120 H 70-110 MG/DL White Blood Count 7.6 4.3-11.0 10^3/uL Red Blood Count 4.18 L 4.30-5.52 10^6/uL Hemoglobin 12.9 L 13.3-17.7 g/dL Hematocrit 39 L 40-54 % Mean Corpuscular Volume 93 80-99 fL Mean Corpuscular Hemoglobin 31 25-34 pg Mean Corpuscular Hemoglobin Concent 33 32-36 g/dL Red Cell Distribution Width 15.8 H 10.0-14.5 % Platelet Count 106 L 130-400 10^3/uL Mean Platelet Volume 11.2 9.0-12.2 fL Immature Granulocyte % (Auto) 5 % Neutrophils (%) (Auto) 86 H 42-75 % Lymphocytes (%) (Auto) 5 L 12-44 % Monocytes (%) (Auto) 5 0-12 % Eosinophils (%) (Auto) 0 0-10 % Basophils (%) (Auto) 0 0-10 % Neutrophils # (Auto) 6.5 1.8-7.8 10^3/uL Lymphocytes # (Auto) 0.4 L 1.0-4.0 10^3/uL Monocytes # (Auto) 0.3 0.0-1.0 10^3/uL Eosinophils # (Auto) 0.0 0.0-0.3 10^3/uL Basophils # (Auto) 0.0 0.0-0.1 10^3/uL Immature Granulocyte # (Auto) 0.4 H 0.0-0.1 10^3/uL Percent Immature Platelet Fraction 7.4 0.0-7.6 % Sodium Level 142 135-145 MMOL/L Potassium Level 3.5 L 3.6-5.0 MMOL/L Chloride Level 103 98-107 MMOL/L Carbon Dioxide Level 27 21-32 MMOL/L Anion Gap 12 5-14 MMOL/L Blood Urea Nitrogen 20 H 7-18 MG/DL Creatinine 0.65 0.60-1.30 MG/DL Estimat Glomerular Filtration Rate 104 BUN/Creatinine Ratio 31 Glucose Level 132 H 70-105 MG/DL Calcium Level 8.8 8.5-10.1 MG/DL Corrected Calcium 9.2 8.5-10.1 MG/DL Total Bilirubin 1.3 H 0.1-1.0 MG/DL Aspartate Amino Transf (AST/SGOT) 58 H 5-34 U/L Alanine Aminotransferase (ALT/SGPT) 119 H 0-55 U/L Alkaline Phosphatase 84 40-136 U/L Total Protein 6.1 L 6.4-8.2 GM/DL Albumin 3.5 3.2-4.5 GM/DL Test 02/27/22 11:42 Range/Units Glucometer 187 H 70-110 MG/DL Diagnosis/Problems Diagnosis/Problems (1) Paroxysmal atrial fibrillation Status: Acute Assessment & Plan: He developed atrial fibrillation on 02/23. He had persistent tachycardia despite high-dose of intravenous diltiazem as well as an amiodarone infusion. As such, I had him undergo a cardioversion on 02/23 which was successful. He has remained in sinus rhythm since that time. I transitioned the intravenous amiodarone over to oral amiodarone. I stopped the intravenous d iltiazem infusion. I suspect the atrial fibrillation was brought on by his acute, noncardiac illness. The atrial fibrillation lasted for less than 24 hours. As such, I do not see any strong indication for oral anticoagulation at this time. We will need to taper the amiodarone over time. Given that his respiratory status is improved, I will reduce the amiodarone to 200 mg twice a day. This will need further tapering and can probably ultimately be discontinued following discharge. His is arranging for follow up with his regular training and development professional in [place] after discharge. (2) Ventricular tachycardia Assessment & Plan: I suspect this was brought on by hypoxia that occurred during lightening of his sedation and weaning trials prior to his extubation. He had an echocardiogram during this hospitalization that shows a normal ejection fraction. His magnesium level is normal but his potassium level was slightly low. I would try to keep his potassium level closer to 4. Continue diltiazem. He may need an ischemic evaluation once he recovers from this acute illness. This could certainly be done as an outpatient by his regular training and development professional at the outside facility in [place], [place]. (3) Chronic heart failure with preserved ejection fraction (HFpEF) Assessment & Plan: His chest x-rays improved. His oxygen requirements have improved. I recommend he continue on the oral furosemide. I had given him 2 daily doses of intravenous furosemide on 02/22 and 02/23. I will hold off on any further intravenous furosemide at this time. (4) Pulmonary hypertension Assessment & Plan: He has severe pulmonary hypertension as noted on his echocardiogram earlier in this hospitalization. I suspect this is due to his chronic obstructive pulmonary disease and chronic hypoxic respiratory failure. He may benefit from home oxygen if he has not already been using this. He needs to quit smoking. (5) Primary hypertension Assessment & Plan: Continue diltiazem. He has been receiving short acting diltiazem before and after being extubated. This can be changed back to diltiazem CD once he can swallow pills more easily. (6) Mixed hyperlipidemia Assessment & Plan: He was taking atorvastatin at home which should be continued. (7) Acute and chronic respiratory failure with hypoxia Status: Acute Assessment & Plan: Most likely due to his chronic obstructive pulmonary disease and possibly a mild component of his chronic heart failure. The hospitalist is managing his pulmonary status. (8) Cigarette smoker Assessment & Plan: He needs to quit smoking. He seems to understand that this will be imperative. He stated that he is done with smoking. CAROL LEWIS JR, MD February 27, 2022 09:51
--- NOTE | 2022-02-27 10:01 | Physical Therapy Daily Note ---
PT Daily Note-Current Subjective Patient was in bed upon entering with in room. He was compliant to treatment and seemed motivated. Pain Location: No Pain Reported Mental Status Patient Orientation: Person, Place, Situation Transfers SCALE: Activities may be completed with or without assistive devices. 3-Hjokbzypjh-dezdzpw completes the activity by him/herself with no assistance from a helper. 5-Set-up or Clean-up Assistance-helper sets up or cleans up; patient completes activity. [place] assists only prior to or following the activity. 4-Supervision or Touching Assistance-helper provides verbal cues and/or touching/steadying and/or contact guard assistance as patient completes activity. Assistance may be provided throughout the activity or intermittently. 3-Partial/Moderate Assistance-helper does LESS THAN HALF the effort. [place] lifts, holds or supports trunk or limbs, but provides less than half the effort. 2-Substantial/Maximal Assistance-helper does MORE THAN HALF the effort. [place] lifts or holds trunk or limbs and provides more than half the effort. 6-Acjmlxumr-qhagns does ALL the effort. Patient does none of the effort to complete the activity. Or, the assistance of 2 or more helpers is required for the patient to complete the activity. If activity was not attempted, code reason: 7-Patient Refused. 9-Not Applicable-not attempted and the patient did not perform the activity before the current illness, exacerbation or injury. 10-Not Attempted due to Environmental Limitations-(lack of equipment, weather restraints, etc.). 88-Not Attempted due to Medical Conditions or Safety Concerns. Roll Left & Right (QC): 3 (modA) Sit to Lying (QC): 1 Lying to Sitting/Side of Bed(Q: 1 modAx2 for lying<->sit Exercises Seated Therapy Exercises: Ankle pumps, Long arc quads, Hip flexion (10) Seated Reps: 15 Treatments LE strengthening, bed mobility, transfers Assessment Current Status: Poor Progress Patient still demonstrates weakness as he was only able to sit EOB for about 4min. At first he needed Snow for support, but then was able to support himself in sitting with both hands. Patient was left in bed with call light, tray, and all needs met bed alarm on. After getting back to bed he had to roll (mod assist) a couple of times to each side to position his drawsheet and then was scooted up in bed. PT Short Term Goals Short Term Goals Time Frame: March 16, 2022 Roll Left & Right: 3 Sit to lyin Lying to sitting on side of be: 3 Sit to stand: 3 Chair/flo-gm-vrcyf transfer: 3 Toilet transfer: 3 Walk 10 feet: 3 PT American History Teacher Goals American History Teacher Goals PT Fdc Goals Time Frame: Apr 06, 2022 Roll Left & Right (QC): 6 Sit to Lying (QC): 6 Lying-Sitting on Side/Bed(QC): 6 Sit to Stand (QC): 6 Chair/Hsd-qc-Civhj Xfer(QC): 6 Toilet Transfer (QC): 6 Car Transfer (QC): 6 Walk 10 feet (QC): 6 Walk 50ft with 2 Turns (QC): 6 Walk 150 ft (QC): 6 PT Plan Problem List Problem List: Activity Tolerance, Functional Strength, Safety, Balance, Gait, Transfer, Bed Mobility, ROM Treatment/Plan Treatment Plan: Continue Plan of Care Treatment Plan: Bed Mobility, Education, Functional Activity Yvette, Functional Strength, Gait, Safety, Therapeutic Exercise, Transfers Treatment Duration: Apr 06, 2022 Frequency: 6 times per week Estimated Hrs Per Day: .25 hour per day Patient and/or Family Agrees t: Yes Safety Risks/Education Patient Education: Transfer Techniques, Correct Positioning, Safety Issues Teaching Recipient: Patient Teaching Methods: Discussion Response to Teaching: Verbalize Understanding Time/GCodes Time In: 934 Time Out: 944 Total Billed Treatment Time: 10 Total Billed Treatment 1 visit FA 10min JENNYFER NAVARRETE PT February 27, 2022 10:00
[2022-02-27 11:18] VITALS: BP 130/83
--- NOTE | 2022-02-27 13:03 | Occupational Ther Daily Note ---
OT Current Status-Daily Note Subjective Pt in bed, family member at bedside. Pt unrealistic about his current medical condition, states he is leaving in a couple of hours. and OT attempt to inform pt that he is in the hospital and not discharging, but pt perseverates on believing he is discharging today. ADL-Treatment Therapy Code Descriptions/Definitions Functional [place] Measure: 0=Not Assessed/NA 4=Minimal Assistance 1=Total Assistance 5=Supervision or Setup 2=Maximal Assistance 6=Modified [place] 3=Moderate Assistance 7=Complete IndependenceSCALE: Activities may be completed with or without assistive devices. 0-Duxkbyaikq-vqgnswn completes the activity by him/herself with no assistance from a helper. 5-Set-up or Clean-up Assistance-helper sets up or cleans up; patient completes activity. [place] assists only prior to or following the activity. 4-Supervision or Touching Assistance-helper provides verbal cues and/or touching/steadying and/or contact guard assistance as patient completes activity. Assistance may be provided throughout the activity or intermittently. 3-Partial/Moderate Assistance-helper does LESS THAN HALF the effort. [place] lifts, holds or supports trunk or limbs, but provides less than half the effort. 2-Substantial/Maximal Assistance-helper does MORE THAN HALF the effort. [place] lifts or holds trunk or limbs and provides more than half the effort. 3-Tjtescgqe-jddmfm does ALL the effort. Patient does none of the effort to complete the activity. Or, the assistance of 2 or more helpers is required for the patient to complete the activity. If activity was not attempted, code reason: 7-Patient Refused. 9-Not Applicable-not attempted and the patient did not perform the activity before the current illness, exacerbation or injury. 10-Not Attempted due to Environmental Limitations-(lack of equipment, weather restraints, etc.). 88-Not Attempted due to Medical Conditions or Safety Concerns. Eating (QC): 2 (per report) Other Treatment Pt laying in bed, agreeable to OT Tx. Pt's assisting pt with eating lunch upon OT arrival. OT educated pt on attempting to complete task himself, he verbalized understanding. BUE exercises performed in order to increase BUE Strength and activity tolerance. Pt required AAROM LUE shoulder flexion x10 reps, then AROM x10 reps of the following performed: RUE shoulder flexion, elbow flexion/extension and front punch. OT provided hand held assist to guide pt in correct movement, providing cues to slow down and attempt full ROM. Pt encouraged to continue exercises throughout day, increasing reps as tolerated while focusing on the quality of movement, pt and verbalize agreement. Post tx, pt in bed, call light in reach and all needs met. Education OT Patient Education: Correct positioning, Energy conservation, Exercise p rogram, Modified ADL techniques, Progress toward Goal/Update tx plan, Purpose of tx/functional activities, Rehab process Teaching Recipient: Patient Teaching Methods: Discussion Response to Teaching: Verbalize Understanding OT Chcf Goals Tunnel Heading Inspector Goals Time Frame: March 15, 2022 Eating (QC): 5 Oral Hygiene (QC): 5 Toileting Hygiene (QC): 4 Shower/Bathe Self (QC): 3 Upper Body Dressing (QC): 4 Lower Body Dressing (QC): 3 On/Off Footwear (QC): 3 Additional Goals: 1-Demonstrate ADL Tasks, 2-Verbalize Understanding, 3- ImproveStrength/Yvette 1=Demonstrate adherence to instructed precautions during ADL tasks. 2=Patient will verbalize/demonstrate understanding of assistive devices/modifications for ADL. 3=Patient will improve strength/tolerance for activity to enable patient to perform ADL's. OT Education/Plan Problem List/Assessment Assessment: Decreased Activ Tolerance, Decreased UE Strength, Impaired Funct Balance, Impaired I ADL's, Impaired Self-Care Skills Discharge Recommendations Plan/Recommendations: Continue POC Treatment Plan/Plan of Care Patient would benefit from OT for education, treatment and training to promote independence in ADL's, mobility, safety and/or upper extremity function for ADL's. Plan of Care: ADL Retraining, Functional Mobility, UE Funct Exercise/Act Treatment Duration: March 15, 2022 Frequency: 3 times per week (3-5 times per week) Estimated Hrs Per Day: .25 hour per day Rehab Potential: Guarded Time/GCodes Start Time: 12:44 Stop Time: 12:54 Total Time Billed (hr/min): 10 Billed Treatment Time 1, EX NICOLAS ALEX OT February 27, 2022 13:03
--- NOTE | 2022-02-27 15:31 | Physician Query Clarification ---
Physician Query-General Query to Physician: The medical record reflects the following clinical evidence: Clinical Indicators: Admission VS/Labs: HR 95, RR 24, BP 154/85, SpO2 95% sat on 3L T 36.6, WBC 6.4, lactic acid 1.24, PCT drawn on day 2 of stay 1.75, BC x 2 from day of admission Pos, one with Gram positive bacilli and one with Staph Coag neg Coryneform bacteria Risk Factor(s): COPD with bouts of Pneumonia, Chronic steroid use, Pnuemonia on admission Treatment: Solu-Medrol IV, cefepime, no IV fluids initially, lab monitoring. 1. Possible Sepsis, unspecified organism, present on admission 2. Other explanation of clinical findings 3. Unable to determine (no explanation for clinical findings) Please clarify and document your clinical opinion in the progress notes and discharge summary including the definitive and/or presumptive diagnosis, (handy spected or probable), related to the above clinical findings. Please include clinical findings supporting your diagnosis. Gudelia Hurtado MSN, RN Clinical Tractor Mechanic [phone] [email or web address] PHYSICIAN RESPONSE: Based on the clinical findings in the record, please respond to the query above on this document as an addendum. Physician Response: Physician Response No sepsis on admission. End stage COPD with pna resulted in acute respiratory failure If you have questions please contact: Carton Folder: Ext: Thank you for your time and cooperation. Clinical Tractor Mechanic/Carton Folder This is a permanent part of the medical record GUDELIA HURTADO February 27, 2022 15:31 JEAN MARIE BLACK MD February 27, 2022 17:22 CURTIS MOSLEY DO February 27, 2022 20:09
[2022-02-27 15:51] VITALS: BP 111/52
--- NOTE | 2022-02-27 17:39 | Progress Note ---
Subjective Subjective/Events-last exam Patient states that he is feeling better. He is still requiring 3x assist with minimal movement. Tolerating PO diet. States that he was able to stand yesterday. Patient is wanting to return home at time of discharge. Discussed the need for SNF and at this time patient is refusing. Review of Systems Pulmonary: Dyspnea, Cough Neurological: Weakness, Incoordination Objective Exam Last Set of Vital Signs Vital Signs Date Time Temp Pulse Resp B/P (MAP) Pulse Ox O2 Delivery O2 Flow Rate FiO2 02/27/22 15:51 36.7 101 18 111/52 (71) 96 High Flow N/C 3.00 02/25/22 21:54 40 Capillary Refill : Less Than 3 Seconds I&O Intake and Output 02/27/22 00:00 Intake Total 1190 ml Output Total 3225 ml Balance -2035 ml Intake Oral 1090 ml IV Total 100 ml Output Urine Total 3225 ml # Bowel Movements 1 General: Alert, Moderate Distress (with any movement) Lungs: Other (Diffuse wheezing and increased work of breathing with minimal activity) Heart: Regular Rate, No Murmurs Abdomen: Normal Bowel Sounds, Soft, No Tenderness, No Masses Extremities: No Edema, No Tenderness/Swelling Neuro: Normal Speech Results/Procedures Lab Laboratory Tests 02/26/22 18:16: Glucometer 143H 02/26/22 23:56: Glucometer 147H 02/27/22 05:11: Glucometer 120H 02/27/22 08:05: White Blood Count 7.6, Red Blood Count 4.18L, Hemoglobin 12.9L, Hematocrit 39L, Mean Corpuscular Volume 93, Mean Corpuscular Hemoglobin 31, Mean Corpuscular Hemoglobin Concent 33, Red Cell Distribution Width 15.8H, Platelet Count 106L, Mean Platelet Volume 11.2, Immature Granulocyte % (Auto) 5, Neutrophils (%) (Auto) 86H, Lymphocytes (%) (Auto) 5L, Monocytes (%) (Auto) 5, Eosinophils (%) (Auto) 0, Basophils (%) (Auto) 0, Neutrophils # (Auto) 6.5, Lymphocytes # (Auto) 0.4L, Monocytes # (Auto) 0.3, Eosinophils # (Auto) 0.0, Basophils # (Auto) 0.0, Immature Granulocyte # (Auto) 0.4H, Percent Immature Platelet Fraction 7.4, Sodium Level 142, Potassium Level 3.5L, Chloride Level 103, Carbon Dioxide Level 27, Anion Gap 12, Blood Urea Nitrogen 20H, Creatinine 0.65, Estimat Glomerular Filtration Rate 104, BUN/Creatinine Ratio 31, Glucose Level 132H, Calcium Level 8.8, Corrected Calcium 9.2, Total Bilirubin 1.3H, Aspartate Amino Transf (AST/SGOT) 58H, Alanine Aminotransferase (ALT/SGPT) 119H, Alkaline Phosphatase 84, Total Protein 6.1L, Albumin 3.5 02/27/22 11:42: Glucometer 187H Microbiology 02/23/22 Blood Culture - Preliminary, Resulted No growth 02/17/22 Gram Stain - Final, Complete 02/17/22 Sputum Culture - Final, Complete Usual upper respiratory ravi Radiology Date of Exam:02/12/22 CT ANGIO CHEST W PROCEDURE: CT angiography Chest TECHNIQUE: After intravenous administration of contrast, thin section axial CT angiography of the chest was performed. 3D MIP reconstructions were made. All CT scans use one or more of the following dose optimizing techniques: automated exposure control, MA and/or KvP adjustment based on a patient size and exam type, or iterative reconstruction. INDICATION: Chest pain, cough and shortness of air COMPARISON: Chest radiograph from earlier same day. FINDINGS: Vasculature: No pulmonary emboli. No CT evidence of pulmonary hypertension or right ventricular strain. Thoracic aorta is normal in caliber. No aortic dissection or pseudoaneurysm. Heart and mediastinum: Visualized thyroid is normal. No supraclavicular, axillary, or intra-thoracic lymphadenopathy. The heart is normal in size without pericardial effusion. Dense mitral annulus calcifications are present. Calcification is also present in the aortic valve leaflets. Pleura: Small left and trace right pleural effusions. Lungs and airway: Severe centrilobular emphysema is present. Bandlike opacities are present in the left apex with architectural distortion. There are few patchy centrilobular micro-nodules and groundglass in the left upper lobe as well. No interlobular septal thickening. Upper abdomen: Allowing for the phase of contrast, no acute abnormality in the upper abdomen is seen. Musculoskeletal: No concerning osseous lesion. IMPRESSION: 1. No pulmonary emboli or acute aortic syndrome. 2. Left upper lobe scattered centrilobular opacities and nodules are likely due to an infectious process. 3. Severe emphysema with left apical bandlike opacity and architectural distortion. This is likely due to an area of scar, but no prior imaging is available to document stability. Therefore, advise followup CT chest without contrast in 3 months to reassess 4. Small left and trace right pleural effusions. 5. Calcified aortic valve leaflets can be seen with aortic stenosis. Dictated by: Dictated on workstation # [id number] Dict: 02/12/22 111 Trans: 02/12/22 112 CVB [id number] Interpreted by: EDGAR ESCOBEDO MD Electronically signed by: EDGAR ESCOBEDO MD 02/12/22 1127 Assessment/Plan Assessment/Plan (1) Acute and chronic respiratory failure with hypoxia Status: Acute Assessment & Plan: 02/25: Extubated Friday, bipap friday and currently on Vapotherm, Still considering LTAC given very low exercise tolerance and likely will need long wean 02/26: Patient on NC today, Will transfer out of ICU today but he remains guarded due to severe end stage COPD, will place ARU referral 02/27: Waiting on ARU decision, patient on home oxygen (2) COPD exacerbation Status: Acute Assessment & Plan: 02/25: End stage COPD, poor prognosis (3) PNA (pneumonia) Status: Acute Qualifiers: Qualified Codes: J18.9 - Pneumonia, unspecified organism (4) Lower extremity weakness Status: Acute Assessment & Plan: - Will order PT 02/26: Patient will need ARU vs SNF at d/c 02/27: Patient still requiring 3x assistance, patient wanting to go home but at this time it is not safe for patient to return home Qualifiers: Qualified Codes: R29.898 - Other symptoms and signs involving the musculoskeletal system (5) Paroxysmal atrial fibrillation Status: Acute Assessment & Plan: 02/25: Cardiology consulted and managing, appreciate recommendations (6) HLD (hyperlipidemia) Status: Chronic Assessment & Plan: - Continue home meds (7) HTN (hypertension) Status: Chronic Assessment & Plan: - Holding home bp meds due to normotension and risk of developing sepsis (8) DVT prophylaxis Status: Acute Assessment & Plan: - lovenox Clinical Quality Measures AMI/AHF: ASA po Prior to arrival: JEAN MARIE Bennett MD February 27, 2022 17:39
[2022-02-27 19:50] VITALS: BP 133/85
[2022-02-27] MEDS: morphine INJ 4 MG/ML 1 ML (VIAL/SYRINGE) IVP PRN (20:55)
[2022-02-27] MEDS: ENOXAPARIN 40 MG/0.4 ML (LOVENOX) SYR SQ SCH (20:57)
[2022-02-28] MEDS: inSUlin ASPART (NovoLOG) 1 UNIT/0.01 ML (CHARGE PER UNIT) SC SCH ×4 (00:04→17:38)
[2022-02-28 00:11] VITALS: BP 125/82
[2022-02-28] MEDS: HYDROcodone/APAP 7.5 MG/325 MG (LORTAB, LORCET PLUS) TABLET PO PRN ×2 (00:39→15:17)
[2022-02-28] MEDS: RT-ALBUTEROL/IPRATROPIUM 3 ML (DUONEB) VIAL INH SCH ×6 (02:10→22:24)
[2022-02-28 04:22] VITALS: BP 134/75
[2022-02-28] MEDS: CEFEPIME INJECTION 1,000 MG in NS (IVPB) 50 ML IV SCH ×2 (05:28→09:57)
[2022-02-28] MEDS: CATHETER FLUSH 10 ML SYR IV SCH ×4 (05:28→21:54)
[2022-02-28] MEDS: predniSONE 20 MG TAB PO SCH (05:29)
[2022-02-28] MEDS: morphine INJ 4 MG/ML 1 ML (VIAL/SYRINGE) IVP PRN ×2 (05:29→14:10)
[2022-02-28 06:14] LABS: MEAN CORPUSCULAR HEMOGLOBIN 31 pg (25-34); MEAN CORPUSCULAR HGB CONC 33 g/dL (32-36)
[2022-02-28 06:15] LABS: BASOPHILS % (AUTO) 0 % (0-10); EOSINOPHILS # (AUTO) 0.1 10^3/uL (0.0-0.3); EOSINOPHILS % (AUTO) 1 % (0-10); HEMATOCRIT 43 % (40-54); HEMOGLOBIN 14.1 g/dL (13.3-17.7); LYMPHOCYTES # (AUTO) 0.9 10^3/uL (1.0-4.0); LYMPHOCYTES % (AUTO) 7 % (12-44); MEAN CORPUSCULAR VOLUME 94 fL (80-99); MEAN PLATELET VOLUME 11.5 fL (9.0-12.2); MONOCYTES # (AUTO) 0.5 10^3/uL (0.0-1.0); MONOCYTES % (AUTO) 4 % (0-12); NEUTROPHILS # (AUTO) 11.9 10^3/uL (1.8-7.8); NEUTROPHILS % (AUTO) 87 % (42-75); PLATELET COUNT 95 10^3/uL (130-400); WHITE BLOOD COUNT 13.7 10^3/uL (4.3-11.0)
[2022-02-28 06:34] LABS: ALBUMIN 3.6 GM/DL (3.2-4.5); POTASSIUM 3.4 MMOL/L (3.6-5.0)
[2022-02-28] MEDS: POTASSIUM CL 10MEQ/50ML IVPB 50 ML IV SCH (06:36)
[2022-02-28] MEDS: MAGNESIUM 1 GM/100 ML IVPB 100 ML IV SCH (06:36)
[2022-02-28 06:37] LABS: TOTAL PROTEIN 6.4 GM/DL (6.4-8.2)
[2022-02-28 06:38] LABS: BILIRUBIN,TOTAL 1.3 MG/DL (0.1-1.0)
[2022-02-28] MEDS: KCL 20 MEQ TAB (K-DUR) PO SCH ×2 (06:38→09:00)
[2022-02-28 06:40] LABS: CREATININE SERUM 0.72 MG/DL (0.60-1.30)
[2022-02-28 07:55] VITALS: BP 141/70
[2022-02-28] MEDS: NICOTINE PATCH REMOVAL TP SCH (08:09)
[2022-02-28] MEDS ORDERED: KCL 20 MEQ TAB (K-DUR) PO ONE (09:00)
--- NOTE | 2022-02-28 09:28 | Cardiology Progress Note ---
Progress Note-Cardiology Events since last exam Date Seen by Provider: February 28, 2022 Time Seen by Provider: 09:22 Events since last exam I am following him due to atrial fibrillation and nonsustained ventricular t achycardia. He remains on the medical unit. He feels as though his breathing is about baseline. He denies chest discomfort, palpitations, syncope, or ankle edema. He is now thinking that he wants to go home instead of being transferred to inpatient rehab. Certain portions of this document may have been dictated utilizing voice recognition technology. Inherent to this technology, typographical and grammatical errors may exist. As much as I am diligent to identify and correct these mistakes, some errors may remain in the document. Vitals Last set of Vitals Signs Vital Signs 02/25/22 02/28/22 02/28/22 21:54 11:43 14:46 Temp 36.9 Pulse 98 Resp 20 B/P (MAP) 116/70 (85) Pulse Ox 97 O2 Delivery High Flow N/C O2 Flow Rate 3.00 FiO2 40 Labs Labs Laboratory Tests 02/28/22 06:00 Exam Vital Signs Vital Signs Date Time Temp Pulse Resp B/P (MAP) Pulse Ox O2 Delivery O2 Flow Rate FiO2 02/28/22 14:46 97 High Flow N/C 3.00 02/28/22 11:43 36.9 98 20 116/70 (85) 02/25/22 21:54 40 Physical Exam General: Alert. No acute distress. He is wearing oxygen by nasal cannula. Eye: No xanthelasma. HENT: Normocephalic. Neck: Jugular venous pressure does not appear elevated. Respiratory: Lungs are clear to auscultation with diffusely decreased breath sounds. Respirations are non-labored. Breath sounds are equal. Symmetrical chest wall expansion. Cardiovascular: Normal rate. Regular rhythm. No murmur. No gallop. No edema. Gastrointestinal: Soft. Normal bowel sounds. Skin: Warm. Dry. Neurologic: Alert and oriented to person, place, time. Cranial nerves 3-11 grossly intact. Psychiatric: Cooperative. Appropriate mood & affect. Labs Laboratory Tests Test 02/27/22 17:56 02/27/22 23:26 02/28/22 05:36 02/28/22 06:00 Range/Units Glucometer 132 H 107 102 70-110 MG/DL White Blood Count 13.7 H 4.3-11.0 10^3/uL Red Blood Count 4.59 4.30-5.52 10^6/uL Hemoglobin 14.1 13.3-17.7 g/dL Hematocrit 43 40-54 % Mean Corpuscular Volume 94 80-99 fL Mean Corpuscular Hemoglobin 31 25-34 pg Mean Corpuscular Hemoglobin Concent 33 32-36 g/dL Red Cell Distribution Width 15.9 H 10.0-14.5 % Platelet Count 95 L 130-400 10^3/uL Mean Platelet Volume 11.5 9.0-12.2 fL Immature Granulocyte % (Auto) 2 % Neutrophils (%) (Auto) 87 H 42-75 % Lymphocytes (%) (Auto) 7 L 12-44 % Monocytes (%) (Auto) 4 0-12 % Eosinophils (%) (Auto) 1 0-10 % Basophils (%) (Auto) 0 0-10 % Neutrophils # (Auto) 11.9 H 1.8-7.8 10^3/uL Lymphocytes # (Auto) 0.9 L 1.0-4.0 10^3/uL Monocytes # (Auto) 0.5 0.0-1.0 10^3/uL Eosinophils # (Auto) 0.1 0.0-0.3 10^3/uL Basophils # (Auto) 0.0 0.0-0.1 10^3/uL Immature Granulocyte # (Auto) 0.3 H 0.0-0.1 10^3/uL Percent Immature Platelet Fraction 10.0 H 0.0-7.6 % Sodium Level 142 135-145 MMOL/L Potassium Level 3.4 L 3.6-5.0 MMOL/L Chloride Level 102 98-107 MMOL/L Carbon Dioxide Level 26 21-32 MMOL/L Anion Gap 14 5-14 MMOL/L Blood Urea Nitrogen 21 H 7-18 MG/DL Creatinine 0.72 0.60-1.30 MG/DL Estimat Glomerular Filtration Rate 101 BUN/Creatinine Ratio 29 Glucose Level 102 70-105 MG/DL Calcium Level 9.0 8.5-10.1 MG/DL Corrected Calcium 9.3 8.5-10.1 MG/DL Total Bilirubin 1.3 H 0.1-1.0 MG/DL Aspartate Amino Transf (AST/SGOT) 58 H 5-34 U/L Alanine Aminotransferase (ALT/SGPT) 126 H 0-55 U/L Alkaline Phosphatase 86 40-136 U/L Total Protein 6.4 6.4-8.2 GM/DL Albumin 3.6 3.2-4.5 GM/DL Test 02/28/22 12:06 Range/Units Glucometer 246 H 70-110 MG/DL Diagnosis/Problems Diagnosis/Problems (1) Paroxysmal atrial fibrillation Status: Acute Assessment & Plan: He developed atrial fibrillation on 02/23. He had persistent tachycardia despite high-dose of intravenous diltiazem as well as an amiodarone infusion. As such, I had him undergo a cardioversion on 02/23 which was successful. He has remained in sinus rhythm since that time. I transitioned the intravenous amiodarone over to oral amiodarone. I stopped the intravenous diltiazem infusion. I suspect the atrial fibrillation was brought on by his acute, noncardiac illness. The atrial fibrillation lasted for less than 24 hours. As such, I do not see any strong indication for oral anticoagulation at this time. We will need to taper the amiodarone over time. Given that his respiratory status is improved, I reduced the amiodarone to 200 mg twice a day on 02/27. This will need further tapering and can probably ultimately be discontinued following discharge. His is arranging for follow up with his regular home restoration service supervisor in [place] after discharge. (2) Ventricular tachycardia Assessment & Plan: I suspect this was brought on by hypoxia that occurred during lightening of his sedation and weaning trials prior to his extubation. He had an echocardiogram during this hospitalization that shows a normal ejection fraction. His magnesium level is normal but his potassium level was slightly low. I would try to keep his potassium level closer to 4. Continue diltiazem. He may need an ischemic evaluation once he recovers from this acute illness. This could certainly be done as an outpatient by his regular home restoration service supervisor at the outside facility in [place], [place]. (3) Chronic heart failure with preserved ejection fraction (HFpEF) Assessment & Plan: His chest x-rays improved. His oxygen requirements have improved. I recommend he continue on the oral furosemide. I had given him 2 daily doses of intravenous furosemide on 02/22 and 02/23. I will hold off on any further intravenous furosemide at this time. (4) Pulmonary hypertension Assessment & Plan: He has severe pulmonary hypertension as noted on his echocardiogram earlier in this hospitalization. I suspect this is due to his chronic obstructive pulmonary disease and chronic hypoxic respiratory failure. He may benefit from home oxygen if he has not already been using this. He needs to quit smoking. (5) Primary hypertension Assessment & Plan: Continue diltiazem. He has been receiving short acting diltiazem before and after being extubated. This can be changed back to diltiazem CD once he can swallow pills more easily. (6) Mixed hyperlipidemia Assessment & Plan: He was taking atorvastatin at home which should be continued. (7) Acute and chronic respiratory failure with hypoxia Status: Resolved Assessment & Plan: Most likely due to his chronic obstructive pulmonary disease and possibly a mild component of his chronic heart failure. The hospitalist is managing his pulmonary status. Resolution Date/Time: 02/27/22 @ 14:58 (8) Cigarette smoker Assessment & Plan: He needs to quit smoking. He seems to understand that this will be imperative. He stated that he is done with smoking. CAROL LEWIS JR, MD February 28, 2022 09:28
[2022-02-28] MEDS: FUROSEMIDE 40 MG (LASIX) TAB PO SCH (09:56)
[2022-02-28] MEDS: AMIODARONE 200 MG (CORDARONE) TAB PO SCH ×2 (09:56→21:52)
[2022-02-28] MEDS: PANTOPRAZOLE 40 MG (PROTONIX) VIAL IV SCH (09:57)
[2022-02-28] MEDS: polyethylene glycoL POWDER 17 GM (MIRALAX) PACK PO SCH ×2 (09:57→21:52)
[2022-02-28] MEDS: guaiFENesin (MUCINEX) 600 MG TAB PO SCH ×2 (09:57→21:53)
[2022-02-28] MEDS: DOCUSATE SODIUM 10 MG/ML 10 ML UDC (COLACE) GT SCH ×2 (09:57→21:53)
[2022-02-28] MEDS: oxyCODONE ER 10 MG (OxyCONTIN CR) TAB PO SCH ×2 (09:57→21:53)
[2022-02-28] MEDS: NICOTINE 21 MG (NICODERM) PATCH TD SCH (09:58)
--- NOTE | 2022-02-28 11:20 | Physical Therapy Daily Note ---
PT Daily Note-Current Subjective Patient agrees to PT. Family present. Mental Status Patient Orientation: Person, Time, Situation Attachments: Oxygen, Vanessa Catheter Transfers SCALE: Activities may be completed with or without assistive devices. 3-Zptumbklts-masywmr completes the activity by him/herself with no assistance from a helper. 5-Set-up or Clean-up Assistance-helper sets up or cleans up; patient completes activity. [place] assists only prior to or following the activity. 4-Supervision or Touching Assistance-helper provides verbal cues and/or touching/steadying and/or contact guard assistance as patient completes activity. Assistance may be provided throughout the activity or intermittently. 3-Partial/Moderate Assistance-helper does LESS THAN HALF the effort. [place] lifts, holds or supports trunk or limbs, but provides less than half the effort. 2-Substantial/Maximal Assistance-helper does MORE THAN HALF the effort. [place] lifts or holds trunk or limbs and provides more than half the effort. 5-Jksveqrwm-zoivzq does ALL the effort. Patient does none of the effort to complete the activity. Or, the assistance of 2 or more helpers is required for the patient to complete the activity. If activity was not attempted, code reason: 7-Patient Refused. 9-Not Applicable-not attempted and the patient did not perform the activity before the current illness, exacerbation or injury. 10-Not Attempted due to Environmental Limitations-(lack of equipment, weather restraints, etc.). 88-Not Attempted due to Medical Conditions or Safety Concerns. Roll Left & Right (QC): 1 (x 2) Sit to Lying (QC): 1 (x 2) Lying to Sitting/Side of Bed(Q: 1 (x 2) Exercises Supine Ex: Ankle pumps, Heel Slides, Straight leg raise Supine Reps: 15 (AAROM bilaterally) Seated Therapy Exercises: Long arc quads Seated Reps: 15 (x 3 sets) Treatments Patient sat EOB x 8 min CGA to SBA performing bilateral LE exercises Assessment Patient fatigues with minimal activity but is motivated with progress. Noted bilateral LE atrophy. PT Short Term Goals Short Term Goals Time Frame: March 16, 2022 Roll Left & Right: 3 Sit to lyin Lying to sitting on side of be: 3 Sit to stand: 3 Chair/bpt-rd-pbppa transfer: 3 Toilet transfer: 3 Walk 10 feet: 3 PT Religious Education Director Goals Custodial Goals PT Religious Education Director Goals Time Frame: Apr 06, 2022 Roll Left & Right (QC): 6 Sit to Lying (QC): 6 Lying-Sitting on Side/Bed(QC): 6 Sit to Stand (QC): 6 Chair/Vio-qp-Lfdfp Xfer(QC): 6 Toilet Transfer (QC): 6 Car Transfer (QC): 6 Walk 10 feet (QC): 6 Walk 50ft with 2 Turns (QC): 6 Walk 150 ft (QC): 6 PT Plan Treatment/Plan Treatment Plan: Continue Plan of Care Treatment Plan: Bed Mobility, Education, Functional Activity Yvette, Functional Strength, Gait, Safety, Therapeutic Exercise, Transfers Treatment Duration: Apr 06, 2022 Frequency: 6 times per week Estimated Hrs Per Day: .25 hour per day Patient and/or Family Agrees t: Yes Time/GCodes Time In: 1030 Time Out: 1046 Total Billed Treatment Time: 16 Total Billed Treatment 1 visit EX 16 min DOUGLAS WILEY PT February 28, 2022 11:20
[2022-02-28 11:43] VITALS: BP 116/70
--- NOTE | 2022-02-28 11:46 | Occupational Ther Daily Note ---
OT Current Status-Daily Note Subjective Pt on BSC with nursing staff, agreeable to OT tx. Pt's nurse reports pt able to feed himself finger foods more independently. ADL-Treatment Therapy Code Descriptions/Definitions Functional [place] Measure: 0=Not Assessed/NA 4=Minimal Assistance 1=Total Assistance 5=Supervision or Setup 2=Maximal Assistance 6=Modified [place] 3=Moderate Assistance 7=Complete IndependenceSCALE: Activities may be completed with or without assistive devices. 4-Bvwnuqvtks-vlbwfdn completes the activity by him/herself with no assistance from a helper. 5-Set-up or Clean-up Assistance-helper sets up or cleans up; patient completes activity. [place] assists only prior to or following the activity. 4-Supervision or Touching Assistance-helper provides verbal cues and/or touching/steadying and/or contact guard assistance as patient completes activity. Assistance may be provided throughout the activity or intermittently. 3-Partial/Moderate Assistance-helper does LESS THAN HALF the effort. [place] lifts, holds or supports trunk or limbs, but provides less than half the effort. 2-Substantial/Maximal Assistance-helper does MORE THAN HALF the effort. [place] lifts or holds trunk or limbs and provides more than half the effort. 4-Gkpnrnpfn-vwrtwv does ALL the effort. Patient does none of the effort to complete the activity. Or, the assistance of 2 or more helpers is required for the patient to complete the activity. If activity was not attempted, code reason: 7-Patient Refused. 9-Not Applicable-not attempted and the patient did not perform the activity before the current illness, exacerbation or injury. 10-Not Attempted due to Environmental Limitations-(lack of equipment, weather restraints, etc.). 88-Not Attempted due to Medical Conditions or Safety Concerns. Toileting Hygiene (QC): 1 Toilet Transfer (QC): 1 Other Treatment Pt on BSC, emely lift utilized to transfer pt from BSC to recliner. Total assist with transfer and toileting. Post tx, pt up in recliner, call light in reach and all needs met. Education OT Patient Education: Correct positioning, Energy conservation, Modified ADL techniques, Progress toward Goal/Update tx plan, Purpose of tx/functional activities, Rehab process Teaching Recipient: Patient Teaching Methods: Discussion Response to Teaching: Verbalize Understanding OT Chcf Goals Pan Helper Goals Time Frame: March 15, 2022 Eating (QC): 5 Oral Hygiene (QC): 5 Toileting Hygiene (QC): 4 Shower/Bathe Self (QC): 3 Upper Body Dressing (QC): 4 Lower Body Dressing (QC): 3 On/Off Footwear (QC): 3 Additional Goals: 1-Demonstrate ADL Tasks, 2-Verbalize Understanding, 3-ImproveStrength/Yvette 1=Demonstrate adherence to instructed precautions during ADL tasks. 2=Patient will verbalize/demonstrate understanding of assistive devices/modifications for ADL. 3=Patient will improve strength/tolerance for activity to enable patient to perform ADL's. OT Education/Plan Problem List/Assessment Assessment: Decreased Activ Tolerance, Decreased Safety Aware, Decreased UE Strength, Dependent Transfers, Impaired Bed Mobility, Impaired Cognition, Impaired Coordination, Impaired Funct Balance, Impaired I ADL's, Impaired Self- Care Skills, Restricted Funct UE ROM Discharge Recommendations Plan/Recommendations: Continue POC Treatment Plan/Plan of Care Patient would benefit from OT for education, treatment and training to promote independence in ADL's, mobility, safety and/or upper extremity function for ADL's. Plan of Care: ADL Retraining, Functional Mobility, UE Funct Exercise/Act Treatment Duration: March 15, 2022 Frequency: 3 times per week (3-5 times per week) Estimated Hrs Per Day: .25 hour per day Rehab Potential: Guarded Time/GCodes Start Time: 11:30 Stop Time: 11:40 Total Time Billed (hr/min): 10 Billed Treatment Time 1, ADL NICOLAS ALEX OT February 28, 2022 11:46
--- NOTE | 2022-02-28 14:34 | Progress Note ---
Subjective Subjective/Events-last exam Patient states that he is feeling ok today. Tolerating PO diet. Working with PT and still requiring 2-3 people for assistance. Patient is really wanting to return home following discharge however his states that she is not able to care for him at home. Review of Systems Pulmonary: Cough Cardiovascular: Orthopnea Gastrointestinal: No: Nausea, Vomiting, Diarrhea, Constipation Neurological: Weakness, Incoordination, Confusion Objective Exam Last Set of Vital Signs Vital Signs Date Time Temp Pulse Resp B/P (MAP) Pulse Ox O2 Delivery O2 Flow Rate FiO2 02/28/22 11:43 36.9 98 20 116/70 (85) 96 High Flow N/C 3.00 02/25/22 21:54 40 Capillary Refill : Less Than 3 Seconds I&O Intake and Output 02/28/22 00:00 Intake Total 1340 ml Output Total 3675 ml Balance -2335 ml Intake Oral 1140 ml IV Total 200 ml Output Urine Total 3675 ml General: Alert, Oriented X3, Mild Distress Lungs: Other (diminished breath sounds throughout, diffuse wheezing) Heart: Regular Rate, No Murmurs Abdomen: Normal Bowel Sounds, Soft, No Tenderness Extremities: No Edema, No Tenderness/Swelling Neuro: Other (severe debility) Results/Procedures Lab Laboratory Tests 02/27/22 17:56: Glucometer 132H 02/27/22 23:26: Glucometer 107 02/28/22 05:36: Glucometer 102 02/28/22 06:00: White Blood Count 13.7H, Red Blood Count 4.59, Hemoglobin 14.1, Hematocrit 43, Mean Corpuscular Volume 94, Mean Corpuscular Hemoglobin 31, Mean Corpuscular Hemoglobin Concent 33, Red Cell Distribution Width 15.9H, Platelet Count 95L, Mean Platelet Volume 11.5, Immature Granulocyte % (Auto) 2, Neutrophils (%) (Auto) 87H, Lymphocytes (%) (Auto) 7L, Monocytes (%) (Auto) 4, Eosinophils (%) (Auto) 1, Basophils (%) (Auto) 0, Neutrophils # (Auto) 11.9H, Lymphocytes # (Auto) 0.9L, Monocytes # (Auto) 0.5, Eosinophils # (Auto) 0.1, Basophils # (Auto) 0.0, Immature Granulocyte # (Auto) 0.3H, Percent Immature Platelet Fraction 10.0H, Sodium Level 142, Potassium Level 3.4L, Chloride Level 102, Carbon Dioxide Level 26, Anion Gap 14, Blood Urea Nitrogen 21H, Creatinine 0.72, Estimat Glomerular Filtration Rate 101, BUN/Creatinine Ratio 29, Glucose Level 102, Calcium Level 9.0, Corrected Calcium 9.3, Total Bilirubin 1.3H, Aspartate Amino Transf (AST/SGOT) 58H, Alanine Aminotransferase (ALT/SGPT) 126H, Alkaline Phosphatase 86, Total Protein 6.4, Albumin 3.6 02/28/22 12:06: Glucometer 246H Microbiology 02/23/22 Blood Culture - Preliminary, Resulted No growth 02/17/22 Gram Stain - Final, Complete 02/17/22 Sputum Culture - Final, Complete Usual upper respiratory ravi Radiology Date of Exam:02/12/22 CT ANGIO CHEST W PROCEDURE: CT angiography Chest TECHNIQUE: After intravenous administration of contrast, thin section axial CT angiography of the chest was performed. 3D MIP reconstructions were made. All CT scans use one or more of the following dose optimizing techniques: automated exposure control, MA and/or KvP adjustment based on a patient size and exam type, or iterative reconstruction. INDICATION: Chest pain, cough and shortness of air COMPARISON: Chest radiograph from earlier same day. FINDINGS: Vasculature: No pulmonary emboli. No CT evidence of pulmonary hypertension or right ventricular strain. Thoracic aorta is normal in caliber. No aortic dissection or pseudoaneurysm. Heart and mediastinum: Visualized thyroid is normal. No supraclavicular, axillary, or intra-thoracic lymphadenopathy. The heart is normal in size without pericardial effusion. Dense mitral annulus calcifications are present. Calcification is also present in the aortic valve leaflets. Pleura: Small left and trace right pleural effusions. Lungs and airway: Severe centrilobular emphysema is present. Bandlike opacities are present in the left apex with architectural distortion. There are few patchy centrilobular micro-nodules and groundglass in the left upper lobe as well. No interlobular septal thickening. Upper abdomen: Allowing for the phase of contrast, no acute abnormality in the upper abdomen is seen. Musculoskeletal: No concerning osseous lesion. IMPRESSION: 1. No pulmonary emboli or acute aortic syndrome. 2. Left upper lobe scattered centrilobular opacities and nodules are likely due to an infectious process. 3. Severe emphysema with left apical bandlike opacity and architectural distortion. This is likely due to an area of scar, but no prior imaging is available to document stability. Therefore, advise followup CT chest without contrast in 3 months to reassess 4. Small left and trace right pleural effusions. 5. Calcified aortic valve leaflets can be seen with aortic stenosis. Dictated by: Dictated on workstation # [id number] Dict: 02/12/22 1117 Trans: 02/12/22 112 CVB [id number] Interpreted by: EDGAR ESCOBEDO MD Electronically signed by: EDGAR ESCOBEDO MD 02/12/22 1127 Assessment/Plan Assessment/Plan (1) Acute and chronic respiratory failure with hypoxia Status: Resolved Assessment & Plan: 02/25: Extubated Friday, bipap friday and currently on Vapotherm, Still considering LTAC given very low exercise tolerance and likely will need long wean 02/26: Patient on NC today, Will transfer out of ICU today but he remains guarded due to severe end stage COPD, will place ARU referral 02/27: Waiting on ARU decision, patient on home oxygen 02/28: Patient really wanting to go home, Still requiring 3x assistance, patient on home oxygen, discussed hospice and he not ready, states that he will consider SNF, Continue PT/OT (2) COPD exacerbation Status: Acute Assessment & Plan: 02/25: End stage COPD, poor prognosis (3) PNA (pneumonia) Status: Resolved Qualifiers: Qualified Codes: J18.9 - Pneumonia, unspecified organism (4) Lower extremity weakness Status: Acute Assessment & Plan: - Will order PT 02/26: Patient will need ARU vs SNF at d/c 02/27: Patient still requiring 3x assistance, patient wanting to go home but at this time it is not safe for patient to return home Qualifiers: Qualified Codes: R29.898 - Other symptoms and signs involving the musculoskeletal system (5) Paroxysmal atrial fibrillation Status: Acute Assessment & Plan: 02/25: Cardiology consulted and managing, appreciate recommendations (6) HLD (hyperlipidemia) Status: Chronic Assessment & Plan: - Continue home meds (7) HTN (hypertension) Status: Chronic Assessment & Plan: - Holding home bp meds due to normotension and risk of deve loping sepsis (8) DVT prophylaxis Status: Acute Assessment & Plan: - lovenox Clinical Quality Measures AMI/AHF: ASA po Prior to arrival: No JEAN MARIE BLACK MD February 28, 2022 14:34
[2022-02-28 15:48] VITALS: BP 132/63
[2022-02-28 19:45] VITALS: BP 138/73
[2022-02-28] MEDS: PROMETHAZINE/ CODEINE SYRUP 5 ML UDC PO PRN (21:52)
[2022-02-28] MEDS: ENOXAPARIN 40 MG/0.4 ML (LOVENOX) SYR SQ SCH (21:52)
[2022-02-28] MEDS: LORazepam INJ 2 MG/ML (ATIVAN) VIAL IVP PRN (21:52)
[2022-03-01] VITALS (7 sets, daily range): BP systolic 102–147; BP diastolic 66–85
[2022-03-01] MEDS: inSUlin ASPART (NovoLOG) 1 UNIT/0.01 ML (CHARGE PER UNIT) SC SCH ×4 (00:24→18:38)
[2022-03-01] MEDS: HYDROcodone/APAP 7.5 MG/325 MG (LORTAB, LORCET PLUS) TABLET PO PRN ×5 (00:28→22:54)
[2022-03-01] MEDS: RT-ALBUTEROL/IPRATROPIUM 3 ML (DUONEB) VIAL INH SCH ×6 (02:42→22:07)
--- NOTE | 2022-03-01 05:49 | Progress Note - Hospitalist ---
Subjective HPI/CC On Admission Date Seen by Provider: March 01, 2022 Time Seen by Provider: 08:00 Subjective/Events-[facility] still in place Very weak Not really eating or drinking well Checked meds and labs at the bedside Review of Systems Pulmonary: Dyspnea Objective Exam Vital Signs Vital Signs Date Time Temp Pulse Resp B/P (MAP) Pulse Ox O2 Delivery O2 Flow Rate FiO2 03/01/22 18:52 92 High Flow N/C 3.00 03/01/22 16:04 35.6 91 22 138/73 (94) 02/25/22 21:54 40 Capillary Refill : Less Than 3 Seconds General Appearance: No Apparent Distress, WD/WN, Chronically ill Respiratory: No Accessory Muscle Use, No Respiratory Distress, Decreased Breath Sounds Cardiovascular: Regular Rate, Rhythm Results/Procedures Lab Laboratory Tests 03/01/22 07:28 Patient resulted labs reviewed. 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 and intubation if needed per patient request Pneumonia Hypertension Hyperlipidemia Atrial fibrillation with RVR status post conversion to normal sinus rhythm spontaneously s/p amiodarone drip Plan: ICU care Precedex BiPAP 02/17/2022: Intubated Appreciate eICU 02/18/2022: Supportive care Maintain intubation 02/19/22: Monitor closely 02/20/2022: Start tube feeds 02/21/2022: Appreciate ventilator management Poor prognosis 02/22/2022: Trach and PEG placement on Friday Poor prognosis 02/23/2022: Extubated End-stage COPD places patient at risk for recurrent respiratory failure 02/24/2022: Supportive care Appreciate cardiology 03/01/2022: Medical [facility] Friday Poor prognosis Critical Care Critically Ill Patient Clinical Quality Measures AMI/AHF: ASA po Prior to arrival: CURTIS Patterson DO March 01, 2022 05:49
[2022-03-01] MEDS: predniSONE 20 MG TAB PO SCH (05:56)
[2022-03-01] MEDS: IBUPROFEN TABLET 200 MG TAB PO PRN (05:56)
[2022-03-01] MEDS: CATHETER FLUSH 10 ML SYR IV SCH ×3 (05:57→20:39)
[2022-03-01] MEDS: KCL 20 MEQ TAB (K-DUR) PO SCH (07:02)
[2022-03-01 07:40] LABS: BASOPHILS % (AUTO) 0 % (0-10); EOSINOPHILS # (AUTO) 0.1 10^3/uL (0.0-0.3); EOSINOPHILS % (AUTO) 1 % (0-10); HEMATOCRIT 41 % (40-54); HEMOGLOBIN 13.1 g/dL (13.3-17.7); LYMPHOCYTES # (AUTO) 0.8 10^3/uL (1.0-4.0); LYMPHOCYTES % (AUTO) 8 % (12-44); MEAN CORPUSCULAR HEMOGLOBIN 31 pg (25-34); MEAN CORPUSCULAR HGB CONC 32 g/dL (32-36); MEAN CORPUSCULAR VOLUME 95 fL (80-99); MEAN PLATELET VOLUME 11.2 fL (9.0-12.2); MONOCYTES # (AUTO) 0.3 10^3/uL (0.0-1.0); MONOCYTES % (AUTO) 3 % (0-12); NEUTROPHILS # (AUTO) 8.8 10^3/uL (1.8-7.8); NEUTROPHILS % (AUTO) 86 % (42-75); PLATELET COUNT 96 10^3/uL (130-400); WHITE BLOOD COUNT 10.3 10^3/uL (4.3-11.0)
[2022-03-01 07:54] LABS: ALBUMIN 3.4 GM/DL (3.2-4.5); BILIRUBIN,TOTAL 1.1 MG/DL (0.1-1.0); CALCIUM 8.9 MG/DL (8.5-10.1); CREATININE SERUM 0.77 MG/DL (0.60-1.30); POTASSIUM 3.9 MMOL/L (3.6-5.0); TOTAL PROTEIN 5.9 GM/DL (6.4-8.2)
--- NOTE | 2022-03-01 08:40 | Cardiology Progress Note ---
Progress Note-Cardiology Events since last exam Date Seen by Provider: March 01, 2022 Time Seen by Provider: 08:39 Events since last exam I am following him due to atrial fibrillation. He remains on the medical/handy rgical unit awaiting possible transfer to an inpatient rehabilitation facility. He feels as though his breathing is back to baseline but he does have fatigue and weakness. He denies chest pain, palpitations, syncope, or ankle edema. Certain portions of this document may have been dictated utilizing voice recognition technology. Inherent to this technology, typographical and grammatical errors may exist. As much as I am diligent to identify and correct these mistakes, some errors may remain in the document. Vitals Last set of Vitals Signs Vital Signs 02/25/22 03/01/22 03/01/22 21:54 07:56 10:48 Temp 36.4 Pulse 79 Resp 20 B/P (MAP) 147/85 (105) Pulse Ox 97 O2 Delivery High Flow N/C O2 Flow Rate 5.00 FiO2 40 Labs Labs Laboratory Tests 03/01/22 07:28 Exam Vital Signs Vital Signs Date Time Temp Pulse Resp B/P (MAP) Pulse Ox O2 Delivery O2 Flow Rate FiO2 03/01/22 10:48 97 High Flow N/C 5.00 03/01/22 07:56 36.4 79 20 147/85 (105) 02/25/22 21:54 40 Physical Exam General: Alert. No acute distress. Eye: No xanthelasma. HENT: Normocephalic. Neck: Jugular venous pressure does not appear elevated. Respiratory: Lungs are clear to auscultation. Respirations are non-labored. Breath sounds are equal. Symmetrical chest wall expansion. Cardiovascular: Normal rate. Regular rhythm. No murmur. No gallop. No edema. Gastrointestinal: Soft. Normal bowel sounds. Skin: Warm. Dry. Neurologic: Alert and oriented to person, place, time. Cranial nerves 3-11 grossly intact. Psychiatric: Cooperative. Appropriate mood & affect. Labs Laboratory Tests Test 02/28/22 17:34 02/28/22 23:14 03/01/22 05:20 03/01/22 07:28 Range/Units Glucometer 131 H 114 H 143 H 70-110 MG/DL White Blood Count 10.3 4.3-11.0 10^3/uL Red Blood Count 4.29 L 4.30-5.52 10^6/uL Hemoglobin 13.1 L 13.3-17.7 g/dL Hematocrit 41 40-54 % Mean Corpuscular Volume 95 80-99 fL Mean Corpuscular Hemoglobin 31 25-34 pg Mean Corpuscular Hemoglobin Concent 32 32-36 g/dL Red Cell Distribution Width 16.0 H 10.0-14.5 % Platelet Count 96 L 130-400 10^3/uL Mean Platelet Volume 11.2 9.0-12.2 fL Immature Granulocyte % (Auto) 2 % Neutrophils (%) (Auto) 86 H 42-75 % Lymphocytes (%) (Auto) 8 L 12-44 % Monocytes (%) (Auto) 3 0-12 % Eosinophils (%) (Auto) 1 0-10 % Basophils (%) (Auto) 0 0-10 % Neutrophils # (Auto) 8.8 H 1.8-7.8 10^3/uL Lymphocytes # (Auto) 0.8 L 1.0-4.0 10^3/uL Monocytes # (Auto) 0.3 0.0-1.0 10^3/uL Eosinophils # (Auto) 0.1 0.0-0.3 10^3/uL Basophils # (Auto) 0.0 0.0-0.1 10^3/uL Immature Granulocyte # (Auto) 0.2 H 0.0-0.1 10^3/uL Percent Immature Platelet Fraction 7.6 0.0-7.6 % Sodium Level 143 135-145 MMOL/L Potassium Level 3.9 3.6-5.0 MMOL/L Chloride Level 103 98-107 MMOL/L Carbon Dioxide Level 22 21-32 MMOL/L Anion Gap 18 H 5-14 MMOL/L Blood Urea Nitrogen 24 H 7-18 MG/DL Creatinine 0.77 0.60-1.30 MG/DL Estimat Glomerular Filtration Rate 99 BUN/Creatinine Ratio 31 Glucose Level 128 H 70-105 MG/DL Calcium Level 8.9 8.5-10.1 MG/DL Corrected Calcium 9.4 8.5-10.1 MG/DL Total Bilirubin 1.1 H 0.1-1.0 MG/DL Aspartate Amino Transf (AST/SGOT) 31 5-34 U/L Alanine Aminotransferase (ALT/SGPT) 84 H 0-55 U/L Alkaline Phosphatase 81 40-136 U/L Total Protein 5.9 L 6.4-8.2 GM/DL Albumin 3.4 3.2-4.5 GM/DL Test 03/01/22 12:06 Range/Units Glucometer 122 H 70-110 MG/DL Diagnosis/Problems Diagnosis/Problems (1) Paroxysmal atrial fibrillation Status: Acute Assessment & Plan: He developed atrial fibrillation on 02/23. He had persistent tachycardia despite high-dose of intravenous diltiazem as well as an amiodarone infusion. As such, I had him undergo a cardioversion on 02/23 which was successful. He has remained in sinus rhythm since that time. I transitioned the intravenous amiodarone over to oral amiodarone. I stopped the intravenous diltiazem infusion. I suspect the atrial fibrillation was brought on by his acute, noncardiac illness. The atrial fibrillation lasted for less than 24 hours. As such, I do not see any strong indication for oral anticoagulation at this time. We will need to taper the amiodarone over time. Given that his respiratory status is improved, I reduced the amiodarone to 200 mg twice a day on 02/27. This will need further tapering and can probably ultimately be discontinued following discharge. His is arranging for follow up with his regular workers' compensation mediator in [place] after discharge. (2) Ventricular tachycardia Assessment & Plan: I suspect this was brought on by hypoxia that occurred during lightening of his sedation and weaning trials prior to his extubation. He had an echocardiogram during this hospitalization that shows a normal eje ction fraction. His magnesium level is normal but his potassium level was slightly low. I would try to keep his potassium level closer to 4. Continue diltiazem. He may need an ischemic evaluation once he recovers from this acute illness. This could certainly be done as an outpatient by his regular workers' compensation mediator at the outside facility in [place], [place]. (3) Chronic heart failure with preserved ejection fraction (HFpEF) Assessment & Plan: His chest x-rays improved. His oxygen requirements have improved. I recommend he continue on the oral furosemide. I had given him 2 daily doses of intravenous furosemide on 02/22 and 02/23. I will hold off on any fu rther intravenous furosemide at this time. (4) Pulmonary hypertension Assessment & Plan: He has severe pulmonary hypertension as noted on his echocardiogram earlier in this hospitalization. I suspect this is due to his chronic obstructive pulmonary disease and chronic hypoxic respiratory failure. He may benefit from home oxygen if he has not already been using this. He needs to quit smoking. (5) Primary hypertension Assessment & Plan: Continue diltiazem. He has been receiving short acting diltiazem before and after being extubated. I will change his back over to diltiazem CD which he was taking at home. (6) Mixed hyperlipidemia Assessment & Plan: He was taking atorvastatin at home which should be continued. (7) Acute and chronic respiratory failure with hypoxia Status: Resolved Assessment & Plan: Most likely due to his chronic obstructive pulmonary disease and possibly a mild component of his chronic heart failure. The hospitalist is managing his pulmonary status. Resolution Date/Time: 02/27/22 @ 14:58 (8) Cigarette smoker Assessment & Plan: He needs to quit smoking. He seems to understand that this will be imperative. He stated that he is done with smoking. CAROL LEWIS JR, MD March 01, 2022 08:40
[2022-03-01] MEDS: oxyCODONE ER 10 MG (OxyCONTIN CR) TAB PO SCH ×2 (10:39→20:38)
[2022-03-01] MEDS: DOCUSATE SODIUM 10 MG/ML 10 ML UDC (COLACE) GT SCH ×2 (10:39→20:39)
[2022-03-01] MEDS: guaiFENesin (MUCINEX) 600 MG TAB PO SCH ×2 (10:39→20:38)
[2022-03-01] MEDS: AMIODARONE 200 MG (CORDARONE) TAB PO SCH ×2 (10:40→20:38)
[2022-03-01] MEDS: NICOTINE 21 MG (NICODERM) PATCH TD SCH (10:40)
[2022-03-01] MEDS: FUROSEMIDE 40 MG (LASIX) TAB PO SCH (10:40)
--- NOTE | 2022-03-01 10:56 | Physical Therapy Daily Note ---
PT Daily Note-Current Subjective Patient is very confused on this date. Mental Status Patient Orientation: Confused Attachments: Oxygen, Vanessa Catheter Transfers SCALE: Activities may be completed with or without assistive devices. 2-Xxofclxcov-zkosywk completes the activity by him/herself with no assistance from a helper. 5-Set-up or Clean-up Assistance-helper sets up or cleans up; patient completes activity. [place] assists only prior to or following the activity. 4-Supervision or Touching Assistance-helper provides verbal cues and/or touching/steadying and/or contact guard assistance as patient completes activity. Assistance may be provided throughout the activity or intermittently. 3-Partial/Moderate Assistance-helper does LESS THAN HALF the effort. [place] lifts, holds or supports trunk or limbs, but provides less than half the effort. 2-Substantial/Maximal Assistance-helper does MORE THAN HALF the effort. [place] lifts or holds trunk or limbs and provides more than half the effort. 3-Beuuvkdur-emgydc does ALL the effort. Patient does none of the effort to complete the activity. Or, the assistance of 2 or more helpers is required for the patient to complete the activity. If activity was not attempted, code reason: 7-Patient Refused. 9-Not Applicable-not attempted and the patient did not perform the activity before the current illness, exacerbation or injury. 10-Not Attempted due to Environmental Limitations-(lack of equipment, weather restraints, etc.). 88-Not Attempted due to Medical Conditions or Safety Concerns. Roll Left & Right (QC): 1 (x 2) Sit to Lying (QC): 1 (x 2) Lying to Sitting/Side of Bed(Q: 1 (x 2) patient able to maintain sitting EOB with CGA Exercises Supine Ex: Ankle pumps, Heel Slides, Straight leg raise Supine Reps: 14 (AAROM) Assessment Noted increase in confusion on this date. Did tolerate sitting EOB for 15 min. Increase activity as tolerated. PT Short Term Goals Short Term Goals Time Frame: March 16, 2022 Roll Left & Right: 3 Sit to lyin Lying to sitting on side of be: 3 Sit to stand: 3 Chair/oil-em-fdetg transfer: 3 Toilet transfer: 3 Walk 10 feet: 3 PT Mcfp Goals Mcfp Goals PT Graphic Design Teacher Goals Time Frame: Apr 06, 2022 Roll Left & Right (QC): 6 Sit to Lying (QC): 6 Lying-Sitting on Side/Bed(QC): 6 Sit to Stand (QC): 6 Chair/Mib-gf-Qlxlt Xfer(QC): 6 Toilet Transfer (QC): 6 Car Transfer (QC): 6 Walk 10 feet (QC): 6 Walk 50ft with 2 Turns (QC): 6 Walk 150 ft (QC): 6 PT Plan Treatment/Plan Treatment Plan: Continue Plan of Care Treatment Plan: Bed Mobility, Education, Functional Activity Yvette, Functional Strength, Gait, Safety, Therapeutic Exercise, Transfers Treatment Duration: Apr 06, 2022 Frequency: 6 times per week Estimated Hrs Per Day: .25 hour per day Patient and/or Family Agrees t: Yes Time/GCodes Time In: 1000 Time Out: 1023 Total Billed Treatment Time: 23 Total Billed Treatment 1 visit EX 8 min FA 15 min DOUGLAS WILEY PT March 01, 2022 10:56
[2022-03-01] MEDS: NICOTINE PATCH REMOVAL TP SCH (11:42)
[2022-03-01] MEDS: polyethylene glycoL POWDER 17 GM (MIRALAX) PACK PO SCH ×2 (11:42→20:39)
--- NOTE | 2022-03-01 12:39 | Occupational Ther Daily Note ---
OT Current Status-Daily Note Subjective Pt alert, lying in bed. Pt's at bedside. Pt is confused this date. Mental Status/Objective Patient Orientation: Person, Confused Attachments: Vanessa Catheter, IV ADL-Treatment Therapy Code Descriptions/Definitions Functional [employer] Measure: 0=Not Assessed/NA 4=Minimal Assistance 1=Total Assistance 5=Supervision or Setup 2=Maximal Assistance 6=Modified [employer] 3=Moderate Assistance 7=Complete IndependenceSCALE: Activities may be completed with or without assistive devices. 0-Dnxwgegice-fbwnasv completes the activity by him/herself with no assistance from a helper. 5-Set-up or Clean-up Assistance-helper sets up or cleans up; patient completes activity. [place] assists only prior to or following the activity. 4-Supervision or Touching Assistance-helper provides verbal cues and/or touching/steadying and/or contact guard assistance as patient completes activity. Assistance may be provided throughout the activity or intermittently. 3-Partial/Moderate Assistance-helper does LESS THAN HALF the effort. [place] lifts, holds or supports trunk or limbs, but provides less than half the effort. 2-Substantial/Maximal Assistance-helper does MORE THAN HALF the effort. [place] lifts or holds trunk or limbs and provides more than half the effort. 4-Tmgcxkgtk-hqxoaz does ALL the effort. Patient does none of the effort to complete the activity. Or, the assistance of 2 or more helpers is required for the patient to complete the activity. If activity was not attempted, code reason: 7-Patient Refused. 9-Not Applicable-not attempted and the patient did not perform the activity before the current illness, exacerbation or injury. 10-Not Attempted due to Environmental Limitations-(lack of equipment, weather restraints, etc.). 88-Not Attempted due to Medical Conditions or Safety Concerns. Other Treatment Assist x2 for bed mobility. CGA while sitting EOB. Tolerated EOB for 15 min. Max A for bathing. After therapy, pt sitting in recliner with call light/phone. Safety measures in place. OT Nursing Associate Goals Care Home Goals Time Frame: March 15, 2022 Eating (QC): 5 Oral Hygiene (QC): 5 Toileting Hygiene (QC): 4 Shower/Bathe Self (QC): 3 Upper Body Dressing (QC): 4 Lower Body Dressing (QC): 3 On/Off Footwear (QC): 3 Additional Goals: 1-Demonstrate ADL Tasks, 2-Verbalize Understanding, 3-Impr oveStrength/Yvette 1=Demonstrate adherence to instructed precautions during ADL tasks. 2=Patient will verbalize/demonstrate understanding of assistive devices/modifications for ADL. 3=Patient will improve strength/tolerance for activity to enable patient to perform ADL's. OT Education/Plan Problem List/Assessment Assessment: Decreased Activ Tolerance, Impaired Cognition, Impaired Self-Care Skills Discharge Recommendations Plan/Recommendations: Continue POC Treatment Plan/Plan of Care Patient would benefit from OT for education, treatment and training to promote independence in ADL's, mobility, safety and/or upper extremity function for ADL's. Plan of Care: ADL Retraining, Functional Mobility, UE Funct Exercise/Act Treatment Duration: March 15, 2022 Frequency: 3 times per week (3-5 times per week) Estimated Hrs Per Day: .25 hour per day Rehab Potential: Guarded Time/GCodes Start Time: 10:00 Stop Time: 10:23 Total Time Billed (hr/min): 23 Billed Treatment Time 1 visit-FA 2 (23 min) TI OCAMPO March 01, 2022 12:39
[2022-03-01] MEDS: ENOXAPARIN 40 MG/0.4 ML (LOVENOX) SYR SQ SCH (20:38)
[2022-03-01] MEDS: LORazepam INJ 2 MG/ML (ATIVAN) VIAL IVP PRN (21:46)
[2022-03-02] MEDS: inSUlin ASPART (NovoLOG) 1 UNIT/0.01 ML (CHARGE PER UNIT) SC SCH ×4 (00:17→17:02)
[2022-03-02] MEDS: RT-ALBUTEROL/IPRATROPIUM 3 ML (DUONEB) VIAL INH SCH ×4 (03:01→22:18)
[2022-03-02 04:01] VITALS: BP 149/88
[2022-03-02] MEDS: CATHETER FLUSH 10 ML SYR IV SCH ×3 (06:29→20:10)
[2022-03-02] MEDS: HYDROcodone/APAP 7.5 MG/325 MG (LORTAB, LORCET PLUS) TABLET PO PRN ×3 (06:29→23:34)
[2022-03-02] MEDS: predniSONE 20 MG TAB PO SCH (06:29)
[2022-03-02 07:11] VITALS: BP 149/88
[2022-03-02 07:22] VITALS: BP 150/81
[2022-03-02 07:55] LABS: BASOPHILS % (AUTO) 0 % (0-10); EOSINOPHILS # (AUTO) 0.1 10^3/uL (0.0-0.3); EOSINOPHILS % (AUTO) 1 % (0-10); HEMATOCRIT 40 % (40-54); HEMOGLOBIN 13.5 g/dL (13.3-17.7); LYMPHOCYTES # (AUTO) 0.5 10^3/uL (1.0-4.0); LYMPHOCYTES % (AUTO) 6 % (12-44); MEAN CORPUSCULAR HEMOGLOBIN 31 pg (25-34); MEAN CORPUSCULAR HGB CONC 34 g/dL (32-36); MEAN CORPUSCULAR VOLUME 93 fL (80-99); MEAN PLATELET VOLUME 11.4 fL (9.0-12.2); MONOCYTES # (AUTO) 0.2 10^3/uL (0.0-1.0); MONOCYTES % (AUTO) 2 % (0-12); NEUTROPHILS # (AUTO) 7.2 10^3/uL (1.8-7.8); NEUTROPHILS % (AUTO) 89 % (42-75); PLATELET COUNT 96 10^3/uL (130-400); WHITE BLOOD COUNT 8.1 10^3/uL (4.3-11.0)
[2022-03-02 08:37] LABS: ALBUMIN 3.7 GM/DL (3.2-4.5); BILIRUBIN,TOTAL 1.1 MG/DL (0.1-1.0); CALCIUM 9.1 MG/DL (8.5-10.1); CREATININE SERUM 0.7 MG/DL (0.60-1.30); POTASSIUM 3.2 MMOL/L (3.6-5.0); TOTAL PROTEIN 6.7 GM/DL (6.4-8.2)
[2022-03-02] MEDS ORDERED: KCL 20 MEQ TAB (K-DUR) PO ONE ×2 (08:45→11:00)
[2022-03-02] MEDS: KCL 20 MEQ TAB (K-DUR) PO SCH (08:47)
[2022-03-02] MEDS: AMIODARONE 200 MG (CORDARONE) TAB PO SCH ×2 (08:55→20:10)
[2022-03-02] MEDS: FUROSEMIDE 40 MG (LASIX) TAB PO SCH (08:55)
[2022-03-02] MEDS: guaiFENesin (MUCINEX) 600 MG TAB PO SCH ×2 (08:55→20:10)
[2022-03-02] MEDS: oxyCODONE ER 10 MG (OxyCONTIN CR) TAB PO SCH ×2 (08:56→20:10)
[2022-03-02] MEDS: polyethylene glycoL POWDER 17 GM (MIRALAX) PACK PO SCH ×2 (08:56→20:11)
[2022-03-02] MEDS: NICOTINE PATCH REMOVAL TP SCH (08:56)
[2022-03-02] MEDS: dilTIAZem120 MG (CARDIZEM CD) CAP PO SCH (08:56)
[2022-03-02] MEDS: NICOTINE 21 MG (NICODERM) PATCH TD SCH (08:56)
[2022-03-02] MEDS: DOCUSATE SODIUM 10 MG/ML 10 ML UDC (COLACE) GT SCH ×2 (08:56→20:11)
--- NOTE | 2022-03-02 09:10 | Physical Therapy Daily Note ---
PT Daily Note-Current Subjective Patient in bed pre tx, agrees to PT, has 9/10 pain in left leg, nurse notified. Patient would like to get into the recliner. Appearance Patient in recliner post tx with nurse call, phone, tray, chair alarm on. Mental Status Patient Orientation: Person, Confused Attachments: Oxygen Transfers SCALE: Activities may be completed with or without assistive devices. 9-Eglcmdvwsl-kxxhbqf completes the activity by him/herself with no assistance from a helper. 5-Set-up or Clean-up Assistance-helper sets up or cleans up; patient completes activity. [place] assists only prior to or following the activity. 4-Supervision or Touching Assistance-helper provides verbal cues and/or touching/steadying and/or contact guard assistance as patient completes activity. Assistance may be provided throughout the activity or intermittently. 3-Partial/Moderate Assistance-helper does LESS THAN HALF the effort. [place] lifts, holds or supports trunk or limbs, but provides less than half the effort. 2-Substantial/Maximal Assistance-helper does MORE THAN HALF the effort. [place] lifts or holds trunk or limbs and provides more than half the effort. 4-Ufludnccn-pwsvlg does ALL the effort. Patient does none of the effort to complete the activity. Or, the assistance of 2 or more helpers is required for the patient to complete the activity. If activity was not attempted, code reason: 7-Patient Refused. 9-Not Applicable-not attempted and the patient did not perform the activity before the current illness, exacerbation or injury. 10-Not Attempted due to Environmental Limitations-(lack of equipment, weather restraints, etc.). 88-Not Attempted due to Medical Conditions or Safety Concerns. Roll Left & Right (QC): 3 Lying to Sitting/Side of Bed(Q: 3 Sit to Stand (QC): 1 Chair/Nrq-lc-[place]tz[place] Xfer(QC): 1 dependent stand pivot transfer to recliner Exercises Seated Therapy Exercises: Ankle pumps, Long arc quads Seated Reps: 20 Treatments bed mobility and transfers, LE strengthening Assessment Current Status: Poor Progress patient very debilitated PT Short Term Goals Short Term Goals Time Frame: March 16, 2022 Roll Left & Right: 3 Sit to lyin Lying to sitting on side of be: 3 Sit to stand: 3 Chair/zaj-ds-gdseh transfer: 3 Toilet transfer: 3 Walk 10 feet: 3 PT Neon Tube Pumper Goals Alf Goals PT Alf Goals Time Frame: Apr 06, 2022 Roll Left & Right (QC): 6 Sit to Lying (QC): 6 Lying-Sitting on Side/Bed(QC): 6 Sit to Stand (QC): 6 Chair/Lmw-ug-Qyrke Xfer(QC): 6 Toilet Transfer (QC): 6 Car Transfer (QC): 6 Walk 10 feet (QC): 6 Walk 50ft with 2 Turns (QC): 6 Walk 150 ft (QC): 6 PT Plan Problem List Problem List: Activity Tolerance, Functional Strength, Safety, Balance, Gait, Transfer, Bed Mobility, ROM Treatment/Plan Treatment Plan: Continue Plan of Care Treatment Plan: Bed Mobility, Education, Functional Activity Yvette, Functional Strength, Gait, Safety, Therapeutic Exercise, Transfers Treatment Duration: Apr 06, 2022 Frequency: 6 times per week Estimated Hrs Per Day: .25 hour per day Patient and/or Family Agrees t: Yes Safety Risks/Education Patient Education: Transfer Techniques, Correct Positioning, Safety Issues Teaching Recipient: Patient Teaching Methods: Demonstration, Discussion Response to Teaching: Reinforcement Needed Time/GCodes Time In: 0836 Time Out: 0846 Total Billed Treatment Time: 10 Total Billed Treatment 1 visit FA JENNYFER RAMOS PT March 02, 2022 09:10
[2022-03-02] MEDS ORDERED: RT-ALBUTEROL/IPRATROPIUM 3 ML (DUONEB) VIAL INH PRN (09:45)
[2022-03-02 11:44] VITALS: BP 118/76
[2022-03-02 15:52] VITALS: BP 127/85
--- NOTE | 2022-03-02 18:11 | Progress Note - Hospitalist ---
ANN HINES 03/02/221810: Subjective HPI/CC On Admission Date Seen by Provider: March 02, 2022 Time Seen by Provider: 11:00 Subjective/Events-last exam The patient was sitting comfortably this morning. He reports his strength is improving. He reports his breathing is "good". He is not having any chest pains or dizzy episodes. He is not having any headaches. He reports having ankle pain. Review of Systems General: No Chills; Other (no fever) HEENT: No Head Aches, No Visual Changes Pulmonary: Dyspnea (improved); No Cough Cardiovascular: No: Chest Pain, Palpitations Gastrointestinal: No: Nausea, Vomiting Genitourinary: No Dysuria, No Hematuria Musculoskeletal: leg pain (in ankle) Neurological: No: Change in speech, Confusion Objective Exam Vital Signs Vital Signs Date Time Temp Pulse Resp B/P (MAP) Pulse Ox O2 Delivery O2 Flow Rate FiO2 03/02/22 15:52 36.2 85 22 127/85 (99) 95 High Flow N/C 3.00 03/02/22 07:11 32 Capillary Refill : Less Than 3 Seconds General Appearance: No Apparent Distress, Chronically ill HEENT: PERRL/EOMI, Moist Mucous Membranes Neck: Full Range of Motion, Normal Inspection Respiratory: Chest Non Tender, No Accessory Muscle Use, No Respiratory Distress, Decreased Breath Sounds (on R side) Cardiovascular: Regular Rate, Rhythm, No Edema, No Murmur, Normal Peripheral Pulses Gastrointestinal: Normal Bowel Sounds, No Organomegaly, No Pulsatile Mass, Non Tender, Soft Extremity: Normal Inspection, Normal Range of Motion, Non Tender, No Calf Tend erness, No Pedal Edema Neurologic/Psychiatric: Alert, Oriented x3, No Motor/Sensory Deficits, Normal Mood/Affect Skin: Normal Color, Warm/Dry Results/Procedures Lab Laboratory Tests 03/02/22 07:40 Patient resulted labs reviewed. Assessment/Plan Assessment and Plan Assess & Plan/Chief Complaint Assessment: Acute on chronic respiratory failure End stage COPD Pneumonia HTN HLP Afib with RVR DVT Acute on chronic respiratory failure End stage COPD Pneumonia Continue on Duoneb therapy. Continue on nasal canula oxygen currently at 3L. Continue daily Lasix 40mg PO. He is planned to be discharged to [facility] on Friday. HTN HLP Afib with RVR Continues to be in normal sinus rhythm. He had a successful cardioversion on 02/23 under the direction of Dr. Pugh. Monitor heart rate and rhythm. Cardiology following, appreciate recommendations. Continue home medications. DVT prophylaxis Lovenox injections Clinical Quality Measures AMI/AHF: ASA po Prior to arrival: No SHERRI MOSLEY DO 03/03/22 1440: Subjective Subjective/Events-last exam Pt doing about the same He is upset because supposedly he might not be going to [facility] on Friday I tried to reassure him and tell him nothing gets done on the weekend for that I tried to support him D/C catheter if he has retention, we will place it back in Labs pending Review of Systems General: Fatigue, Malaise Pulmonary: Dyspnea (improved) Objective Exam General Appearance: No Apparent Distress, WD/WN, Chronically ill Respiratory: No Accessory Muscle Use, No Respiratory Distress, Decreased Breath Sounds (on R side) Cardiovascular: Regular Rate, Rhythm Neurologic/Psychiatric: Alert, Oriented x3, No Motor/Sensory Deficits, Normal Mood/Affect Assessment/Plan Assessment and Plan Assess & Plan/Chief Complaint Await placement care home Monitor voiding since catheter DC'd Supervisory-Addendum Brief Verification & Attestation Participated in pt care: history, MDM, physical Personally performed: exam, history, MDM, supervision of care Care discussed with: Medical Student Procedures: n/a Results interpretation: Verified all documentation Verification and Attestation of Medical Student E/M Service A medical student performed and documented this service in my presence. I reviewed and verified all information documented by the medical student and made modifications to such information, when appropriate. I personally performed the physical exam and medical decision making. Sherri Mosley March 03, 2022,14:40 ANN HINES March 02, 2022 18:11 SHERRI MOSLEY DO March 03, 2022 14:40
[2022-03-02 19:23] VITALS: BP 128/79
[2022-03-02] MEDS: ENOXAPARIN 40 MG/0.4 ML (LOVENOX) SYR SQ SCH (20:10)
[2022-03-03 00:12] VITALS: BP 159/97
[2022-03-03] MEDS: inSUlin ASPART (NovoLOG) 1 UNIT/0.01 ML (CHARGE PER UNIT) SC SCH ×4 (00:29→16:17)
[2022-03-03] MEDS: RT-ALBUTEROL/IPRATROPIUM 3 ML (DUONEB) VIAL INH SCH ×4 (02:09→21:55)
[2022-03-03 03:42] VITALS: BP 125/74
--- NOTE | 2022-03-03 05:12 | Progress Note - Hospitalist ---
Subjective HPI/CC On Admission Date Seen by Provider: March 03, 2022 Time Seen by Provider: 05:15 Subjective/Events-last exam Pt doing really well Discontinued Catheter yesterday and voiding well Bowels are moving really well Eating and drinking fine No pain Review of Systems General: Fatigue, Malaise Objective Exam Vital Signs Vital Signs Date Time Temp Pulse Resp B/P (MAP) Pulse Ox O2 Delivery O2 Flow Rate FiO2 03/03/22 16:00 37.2 94 20 127/70 (89) 90 Room Air 03/03/22 10:51 3.00 03/02/22 07:11 32 Capillary Refill : Less Than 3 Seconds General Appearance: No Apparent Distress, WD/WN, Chronically ill Respiratory: Lungs Clear, No Accessory Muscle Use, No Respiratory Distress, Decreased Breath Sounds Cardiovascular: Regular Rate, Rhythm Neurologic/Psychiatric: Alert, Oriented x3 Results/Procedures Lab Laboratory Tests 03/03/22 06:25 Patient resulted labs reviewed. 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 and intubation if needed per patient request Pneumonia Hypertension Hyperlipidemia Atrial fibrillation with RVR status post conversion to normal sinus rhythm spontaneously s/p amiodarone drip Plan: ICU care Precedex BiPAP 02/17/2022: Intubated Appreciate eICU 02/18/2022: Supportive care Maintain intubation 02/19/22: Monitor closely 02/20/2022: Start tube feeds 02/21/2022: Appreciate ventilator management Poor prognosis 02/22/2022: Trach and PEG placement on Friday Poor prognosis 02/23/2022: Extubated End-stage COPD places patient at risk for recurrent respiratory failure 02/24/2022: Supportive care Appreciate cardiology 03/01/2022: [facility] Friday Poor prognosis 03/03/2022: Supportive care Await placement Critical Care Critically Ill Patient Clinical Quality Measures AMI/AHF: ASA po Prior to arrival: CURTIS Patterson DO March 03, 2022 05:12
[2022-03-03] MEDS: KCL 20 MEQ TAB (K-DUR) PO SCH (06:00)
[2022-03-03] MEDS: CATHETER FLUSH 10 ML SYR IV SCH ×3 (06:05→20:52)
[2022-03-03 06:34] LABS: BASOPHILS % (AUTO) 0 % (0-10); EOSINOPHILS # (AUTO) 0.1 10^3/uL (0.0-0.3); EOSINOPHILS % (AUTO) 1 % (0-10); HEMATOCRIT 37 % (40-54); HEMOGLOBIN 12.4 g/dL (13.3-17.7); LYMPHOCYTES # (AUTO) 0.4 10^3/uL (1.0-4.0); LYMPHOCYTES % (AUTO) 6 % (12-44); MEAN CORPUSCULAR HEMOGLOBIN 31 pg (25-34); MEAN CORPUSCULAR HGB CONC 34 g/dL (32-36); MEAN CORPUSCULAR VOLUME 93 fL (80-99); MEAN PLATELET VOLUME 11.8 fL (9.0-12.2); MONOCYTES # (AUTO) 0.2 10^3/uL (0.0-1.0); MONOCYTES % (AUTO) 3 % (0-12); NEUTROPHILS # (AUTO) 6.7 10^3/uL (1.8-7.8); NEUTROPHILS % (AUTO) 88 % (42-75); PLATELET COUNT 101 10^3/uL (130-400); WHITE BLOOD COUNT 7.5 10^3/uL (4.3-11.0)
[2022-03-03 06:43] LABS: ALBUMIN 3.5 GM/DL (3.2-4.5)
[2022-03-03 06:44] LABS: CALCIUM 9.2 MG/DL (8.5-10.1)
[2022-03-03 06:45] LABS: TOTAL PROTEIN 6.3 GM/DL (6.4-8.2)
[2022-03-03 06:47] LABS: BILIRUBIN,TOTAL 0.8 MG/DL (0.1-1.0)
[2022-03-03 06:49] LABS: CREATININE SERUM 0.79 MG/DL (0.60-1.30)
[2022-03-03] MEDS: NICOTINE PATCH REMOVAL TP SCH (07:38)
[2022-03-03 08:00] VITALS: BP 136/80
[2022-03-03] MEDS: polyethylene glycoL POWDER 17 GM (MIRALAX) PACK PO SCH ×2 (09:16→20:51)
[2022-03-03] MEDS: AMIODARONE 200 MG (CORDARONE) TAB PO SCH ×2 (09:16→20:51)
[2022-03-03] MEDS: FUROSEMIDE 40 MG (LASIX) TAB PO SCH (09:16)
[2022-03-03] MEDS: dilTIAZem120 MG (CARDIZEM CD) CAP PO SCH (09:16)
[2022-03-03] MEDS: DOCUSATE SODIUM 10 MG/ML 10 ML UDC (COLACE) GT SCH ×2 (09:16→20:51)
[2022-03-03] MEDS: guaiFENesin (MUCINEX) 600 MG TAB PO SCH ×2 (09:16→20:51)
[2022-03-03] MEDS: oxyCODONE ER 10 MG (OxyCONTIN CR) TAB PO SCH ×2 (09:17→20:51)
[2022-03-03] MEDS: NICOTINE 21 MG (NICODERM) PATCH TD SCH (09:23)
[2022-03-03 12:19] VITALS: BP 105/71
[2022-03-03 16:00] VITALS: BP 127/70
[2022-03-03] MEDS ORDERED: LIDOCAINE UROJET 2% GEL 10 ML PKG ONE (17:14)
[2022-03-03 19:02] VITALS: BP 103/71
[2022-03-03] MEDS: ENOXAPARIN 40 MG/0.4 ML (LOVENOX) SYR SQ SCH (20:51)
[2022-03-04] VITALS: BP 122/71
[2022-03-04] MEDS: RT-ALBUTEROL/IPRATROPIUM 3 ML (DUONEB) VIAL INH SCH ×4 (02:46→20:13)
[2022-03-04] MEDS: CATHETER FLUSH 10 ML SYR IV SCH ×3 (05:12→21:20)
--- NOTE | 2022-03-04 05:38 | Progress Note - Hospitalist ---
Subjective HPI/CC On Admission Date Seen by Provider: March 04, 2022 Time Seen by Provider: 09:00 Subjective/Events-last exam Pt is doing about the same Working with therapy Awaiting plan from insurance approval for skilled Checked meds and labs Bowels are moving Dysuria so will start Azo Review of Systems General: Fatigue, Malaise Objective Exam Vital Signs Vital Signs Date Time Temp Pulse Resp B/P (MAP) Pulse Ox O2 Delivery O2 Flow Rate FiO2 03/05/22 03:59 36.4 80 18 114/74 (87) 95 High Flow N/C 3.00 03/02/22 07:11 32 Capillary Refill : Less Than 3 Seconds General Appearance: No Apparent Distress, WD/WN, Chronically ill Respiratory: No Accessory Muscle Use, No Respiratory Distress, Decreased Breath Sounds Cardiovascular: Regular Rate, Rhythm Neurologic/Psychiatric: Alert, Oriented x3 Results/Procedures Lab Laboratory Tests 03/05/22 05:02 Patient resulted labs reviewed. 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 and intubation if needed per patient request Pneumonia Hypertension Hyperlipidemia Atrial fibrillation with RVR status post conversion to normal sinus rhythm spontaneously s/p amiodarone drip Plan: ICU care Precedex BiPAP 02/17/2022: Intubated Appreciate eICU 02/18/2022: Supportive care Maintain intubation 02/19/22: Monitor closely 02/20/2022: Start tube feeds 02/21/2022: Appreciate ventilator management Poor prognosis 02/22/2022: Trach and PEG placement on Friday Poor prognosis 02/23/2022: Extubated End-stage COPD places patient at risk for recurrent respiratory failure 02/24/2022: Supportive care Appreciate cardiology 03/01/2022: [facility] Friday Poor prognosis 03/03/2022: Supportive care Await placement 03/04/2022: Supportive care Awaiting placement Critical Care Critically Ill Patient Clinical Quality Measures AMI/AHF: ASA po Prior to arrival: CURTIS Patterson DO March 04, 2022 05:38
[2022-03-04 05:51] LABS: BASOPHILS % (AUTO) 0 % (0-10); MONOCYTES # (AUTO) 0.3 10^3/uL (0.0-1.0); MONOCYTES % (AUTO) 3 % (0-12)
[2022-03-04 05:53] LABS: EOSINOPHILS # (AUTO) 0.1 10^3/uL (0.0-0.3); EOSINOPHILS % (AUTO) 1 % (0-10); HEMATOCRIT 38 % (40-54); HEMOGLOBIN 12.8 g/dL (13.3-17.7); LYMPHOCYTES # (AUTO) 0.6 10^3/uL (1.0-4.0); LYMPHOCYTES % (AUTO) 7 % (12-44); MEAN CORPUSCULAR HEMOGLOBIN 31 pg (25-34); MEAN CORPUSCULAR HGB CONC 34 g/dL (32-36); MEAN CORPUSCULAR VOLUME 92 fL (80-99); NEUTROPHILS % (AUTO) 87 % (42-75); PLATELET COUNT 88 10^3/uL (130-400); WHITE BLOOD COUNT 9.1 10^3/uL (4.3-11.0)
[2022-03-04 05:55] LABS: ALBUMIN 3.6 GM/DL (3.2-4.5)
[2022-03-04 05:56] LABS: CALCIUM 9.2 MG/DL (8.5-10.1)
[2022-03-04 05:57] LABS: TOTAL PROTEIN 6.5 GM/DL (6.4-8.2)
[2022-03-04] MEDS: KCL 20 MEQ TAB (K-DUR) PO SCH (05:58)
[2022-03-04 05:59] LABS: BILIRUBIN,TOTAL 0.9 MG/DL (0.1-1.0)
[2022-03-04] MEDS: inSUlin ASPART (NovoLOG) 1 UNIT/0.01 ML (CHARGE PER UNIT) SC SCH ×4 (05:59→18:41)
[2022-03-04 06:01] LABS: CREATININE SERUM 0.76 MG/DL (0.60-1.30)
[2022-03-04 06:46] LABS: BAND NEUTROPHILS 3 %; EOSINOPHILS % (MANUAL) 1 %; LYMPHOCYTES % (MANUAL) 6 %; MONOCYTES % (MANUAL) 2 %; MYELOCYTES % 1 %; NEUTROPHILS % (MANUAL) 87 %
[2022-03-04 06:47] LABS: RBC MORPH NORMAL
[2022-03-04 07:43] VITALS: BP 104/73
[2022-03-04] MEDS: NICOTINE PATCH REMOVAL TP SCH (08:17)
[2022-03-04] MEDS: NICOTINE 21 MG (NICODERM) PATCH TD SCH (08:18)
[2022-03-04] MEDS: dilTIAZem120 MG (CARDIZEM CD) CAP PO SCH (08:18)
[2022-03-04] MEDS: guaiFENesin (MUCINEX) 600 MG TAB PO SCH ×2 (08:18→21:19)
[2022-03-04] MEDS: AMIODARONE 200 MG (CORDARONE) TAB PO SCH ×2 (08:19→21:19)
[2022-03-04] MEDS: DOCUSATE SODIUM 10 MG/ML 10 ML UDC (COLACE) GT SCH ×2 (08:19→21:19)
[2022-03-04] MEDS: oxyCODONE ER 10 MG (OxyCONTIN CR) TAB PO SCH ×2 (08:19→21:20)
[2022-03-04] MEDS: FUROSEMIDE 40 MG (LASIX) TAB PO SCH (08:19)
--- NOTE | 2022-03-04 08:21 | Occupational Ther Daily Note ---
OT Current Status-Daily Note ADL-Treatment Therapy Code Descriptions/Definitions Functional [place] Measure: 0=Not Assessed/NA 4=Minimal Assistance 1=Total Assistance 5=Supervision or Setup 2=Maximal Assistance 6=Modified [place] 3=Moderate Assistance 7=Complete IndependenceSCALE: Activities may be completed with or without assistive devices. 8-Hoopnsrtznq-edxmhva completes the activity by him/herself with no assistance from a helper. 5-Set-up or Clean-up Assistance-helper sets up or cleans up; patient completes activity. [place] assists only prior to or following the activity. 4-Supervision or Touching Assistance-helper provides verbal cues and/or touching/steadying and/or contact guard assistance as patient completes activity. Assistance may be provided throughout the activity or intermittently. 3-Partial/Moderate Assistance-helper does LESS THAN HALF the effort. [place] lifts, holds or supports trunk or limbs, but provides less than half the effort. 2-Substantial/Maximal Assistance-helper does MORE THAN HALF the effort. [place] lifts or holds trunk or limbs and provides more than half the effort. 5-Htfguevfo-nfjgtx does ALL the effort. Patient does none of the effort to complete the activity. Or, the assistance of 2 or more helpers is required for the patient to complete the activity. If activity was not attempted, code reason: 7-Patient Refused. 9-Not Applicable-not attempted and the patient did not perform the activity before the current illness, exacerbation or injury. 10-Not Attempted due to Environmental Limitations-(lack of equipment, weather restraints, etc.). 88-Not Attempted due to Medical Conditions or Safety Concerns. OT Shower Doors And Panels Fabricator Goals Shower Doors And Panels Fabricator Goals Time Frame: March 15, 2022 Eating (QC): 5 Oral Hygiene (QC): 5 Toileting Hygiene (QC): 4 Shower/Bathe Self (QC): 3 Upper Body Dressing (QC): 4 Lower Body Dressing (QC): 3 On/Off Footwear (QC): 3 Additional Goals: 1-Demonstrate ADL Tasks, 2-Verbalize Understanding, 3- ImproveStrength/Yvette 1=Demonstrate adherence to instructed precautions during ADL tasks. 2=Patient will verbalize/demonstrate understanding of assistive devices/modifications for ADL. 3=Patient will improve strength/tolerance for activity to enable patient to perform ADL's. OT Education/Plan Treatment Plan/Plan of Care Patient would benefit from OT for education, treatment and training to promote independence in ADL's, mobility, safety and/or upper extremity function for ADL's. Plan of Care: ADL Retraining, Functional Mobility, UE Funct Exercise/Act Treatment Duration: March 15, 2022 Frequency: 3 times per week (3-5 times per week) Estimated Hrs Per Day: .25 hour per day Rehab Potential: TI [place] March 04, 2022 08:21
[2022-03-04] MEDS: polyethylene glycoL POWDER 17 GM (MIRALAX) PACK PO SCH ×2 (08:22→21:19)
[2022-03-04] MEDS: PHENAZOPYRIDINE 100 MG (PYRIDIUM) TABLET PO SCH ×3 (10:17→18:40)
[2022-03-04] MEDS: HYDROcodone/APAP 7.5 MG/325 MG (LORTAB, LORCET PLUS) TABLET PO PRN ×2 (12:42→18:40)
--- NOTE | 2022-03-04 12:44 | Physical Therapy Daily Note ---
PT Daily Note-Current Subjective Patient in bed pre tx, agrees to PT, has pain in right ankle/calf. Appearance Patient in recliner post tx with nurse call, phone, tray, all needs met, chair alarm on. Mental Status Patient Orientation: Person, Place, Situation Attachments: Oxygen Transfers SCALE: Activities may be completed with or without assistive devices. 1-Qkpvpftqcv-etnfbnn completes the activity by him/herself with no assistance from a helper. 5-Set-up or Clean-up Assistance-helper sets up or cleans up; patient completes activity. [place] assists only prior to or following the activity. 4-Supervision or Touching Assistance-helper provides verbal cues and/or touching/steadying and/or contact guard assistance as patient completes act ivity. Assistance may be provided throughout the activity or intermittently. 3-Partial/Moderate Assistance-helper does LESS THAN HALF the effort. [place] lifts, holds or supports trunk or limbs, but provides less than half the effort. 2-Substantial/Maximal Assistance-helper does MORE THAN HALF the effort. [place] lifts or holds trunk or limbs and provides more than half the effort. 3-Xwxjhhrmr-iheiwb does ALL the effort. Patient does none of the effort to complete the activity. Or, the assistance of 2 or more helpers is required for the patient to complete the activity. If activity was not attempted, code reason: 7-Patient Refused. 9-Not Applicable-not attempted and the patient did not perform the activity before the current illness, exacerbation or injury. 10-Not Attempted due to Environmental Limitations-(lack of equipment, weather restraints, etc.). 88-Not Attempted due to Medical Conditions or Safety Concerns. Roll Left & Right (QC): 3 Lying to Sitting/Side of Bed(Q: 3 Sit to Stand (QC): 1 Chair/Bgt-ex-Hqyri Xfer(QC): 1 Patient could assist standing one time but only for a few seconds and then sat back down. Attempted again and it was dependent and the transfer was performed. Exercises Seated Therapy Exercises: Long arc quads Seated Reps: 20 Treatments bed mobility and transfers, LE AROM Assessment Current Status: Poor Progress dependent for transfers PT Short Term Goals Short Term Goals Time Frame: March 16, 2022 Roll Left & Right: 3 Sit to lyin Lying to sitting on side of be: 3 Sit to stand: 3 Chair/cfn-au-iixfa transfer: 3 Toilet transfer: 3 Walk 10 feet: 3 PT Rheumatology Nurse Goals Rheumatology Nurse Goals PT Rheumatology Nurse Goals Time Frame: Apr 06, 2022 Roll Left & Right (QC): 6 Sit to Lying (QC): 6 Lying-Sitting on Side/Bed(QC): 6 Sit to Stand (QC): 6 Chair/Dmp-iz-Nmjsp Xfer(QC): 6 Toilet Transfer (QC): 6 Car Transfer (QC): 6 Walk 10 feet (QC): 6 Walk 50ft with 2 Turns (QC): 6 Walk 150 ft (QC): 6 PT Plan Problem List Problem List: Activity Tolerance, Functional Strength, Safety, Balance, Gait, Transfer, Bed Mobility, ROM Treatment/Plan Treatment Plan: Continue Plan of Care Treatment Plan: Bed Mobility, Education, Functional Activity Yvette, Functional Strength, Gait, Safety, Therapeutic Exercise, Transfers Treatment Duration: Apr 06, 2022 Frequency: 6 times per week Estimated Hrs Per Day: .25 hour per day Patient and/or Family Agrees t: Yes Safety Risks/Education Patient Education: Transfer Techniques, Correct Positioning, Safety Issues Teaching Recipient: Patient Teaching Methods: Demonstration, Discussion Response to Teaching: Reinforcement Needed Time/GCodes Time In: 1130 Time Out: 1140 Total Billed Treatment Time: 10 Total Billed Treatment 1 visit FA JENNYFER RAMOS PT March 04, 2022 12:44
--- NOTE | 2022-03-04 14:07 | Occupational Ther Daily Note ---
OT Current Status-Daily Note Subjective Pt alert, sitting in recliner. Pt agrees to therapy. No c/o pain. Family present in room. Mental Status/Objective Patient Orientation: Person, Confused, Place Attachments: IV ADL-Treatment Therapy Code Descriptions/Definitions Functional [place] Measure: 0=Not Assessed/NA 4=Minimal Assistance 1=Total Assistance 5=Supervision or Setup 2=Maximal Assistance 6=Modified [place] 3=Moderate Assistance 7=Complete IndependenceSCALE: Activities may be completed with or without assistive devices. 5-Lihvgdxkjj-zfxyccy completes the activity by him/herself with no assistance from a helper. 5-Set-up or Clean-up Assistance-helper sets up or cleans up; patient completes activity. [place] assists only prior to or following the activity. 4-Supervision or Touching Assistance-helper provides verbal cues and/or touching/steadying and/or contact guard assistance as patient completes activity. Assistance may be provided throughout the activity or intermittently. 3-Partial/Moderate Assistance-helper does LESS THAN HALF the effort. [place] lifts, holds or supports trunk or limbs, but provides less than half the effort. 2-Substantial/Maximal Assistance-helper does MORE THAN HALF the effort. [place] lifts or holds trunk or limbs and provides more than half the effort. 8-Wtuynznou-qvdmas does ALL the effort. Patient does none of the effort to complete the activity. Or, the assistance of 2 or more helpers is required for the patient to complete the activity. If activity was not attempted, code reason: 7-Patient Refused. 9-Not Applicable-not attempted and the patient did not perform the activity before the current illness, exacerbation or injury. 10-Not Attempted due to Environmental Limitations-(lack of equipment, weather restraints, etc.). 88-Not Attempted due to Medical Conditions or Safety Concerns. Other Treatment Pt. alert in recliner. Pt. agreed to therapy. Worked on B UE exercises, needed verbal cues for correct technique. 3 B UE for skilled intervention to work on ADLs- shldr add/abd 1 set 20 reps, shldr flexion 90* reaching towards back of head 1 set 20 reps mod assist, shldr retraction 1 set 20 reps. Assist with LE marching while crossing midline to touch opposite knee. 10 leg extensions with verbal cues for full leg extension. Pt. sitting in recliner at end of session. Call light/phone in reach. Safety measures in place. Family present in room. OT Correction Goals Correction Goals Time Frame: March 15, 2022 Eating (QC): 5 Oral Hygiene (QC): 5 Toileting Hygiene (QC): 4 Shower/Bathe Self (QC): 3 Upper Body Dressing (QC): 4 Lower Body Dressing (QC): 3 On/Off Footwear (QC): 3 Additional Goals: 1-Demonstrate ADL Tasks, 2-Verbalize Understanding, 3-ImproveStrength/Yvette 1=Demonstrate adherence to instructed precautions during ADL tasks. 2=Patient will verbalize/demonstrate understanding of assistive devices/modifications for ADL. 3=Patient will improve strength/tolerance for activity to enable patient to perform ADL's. OT Education/Plan Problem List/Assessment Assessment: Decreased Activ Tolerance, Impaired Self-Care Skills Discharge Recommendations Plan/Recommendations: Continue POC Treatment Plan/Plan of Care Patient would benefit from OT for education, treatment and training to promote independence in ADL's, mobility, safety and/or upper extremity function for ADL's. Plan of Care: ADL Retraining, Functional Mobility, UE Funct Exercise/Act Treatment Duration: March 15, 2022 Frequency: 3 times per week (3-5 times per week) Estimated Hrs Per Day: .25 hour per day Rehab Potential: Guarded Time/GCodes Start Time: 13:37 Stop Time: 13:52 Total Time Billed (hr/min): 15 Billed Treatment Time 1 visit-EX 1 (15 min) TI OCAMPO March 04, 2022 14:07
[2022-03-04] MEDS: IBUPROFEN TABLET 200 MG TAB PO PRN (17:03)
[2022-03-04] MEDS: ENOXAPARIN 40 MG/0.4 ML (LOVENOX) SYR SQ SCH (21:19)
[2022-03-05] MEDS: inSUlin ASPART (NovoLOG) 1 UNIT/0.01 ML (CHARGE PER UNIT) SC SCH ×4 (00:07→18:19)
[2022-03-05 00:09] VITALS: BP 115/69
[2022-03-05] MEDS: HYDROcodone/APAP 7.5 MG/325 MG (LORTAB, LORCET PLUS) TABLET PO PRN ×4 (01:31→22:27)
[2022-03-05] MEDS: RT-ALBUTEROL/IPRATROPIUM 3 ML (DUONEB) VIAL INH SCH ×4 (02:20→21:44)
[2022-03-05 03:59] VITALS: BP 114/74
[2022-03-05 05:32] LABS: BASOPHILS % (AUTO) 0 % (0-10)
[2022-03-05 05:34] LABS: EOSINOPHILS # (AUTO) 0.1 10^3/uL (0.0-0.3); EOSINOPHILS % (AUTO) 2 % (0-10); HEMATOCRIT 35 % (40-54); HEMOGLOBIN 11.6 g/dL (13.3-17.7); LYMPHOCYTES # (AUTO) 0.6 10^3/uL (1.0-4.0); LYMPHOCYTES % (AUTO) 10 % (12-44); MEAN CORPUSCULAR HEMOGLOBIN 31 pg (25-34); MEAN CORPUSCULAR HGB CONC 34 g/dL (32-36); MEAN CORPUSCULAR VOLUME 92 fL (80-99); MEAN PLATELET VOLUME 11.2 fL (9.0-12.2); MONOCYTES # (AUTO) 0.2 10^3/uL (0.0-1.0); MONOCYTES % (AUTO) 4 % (0-12); NEUTROPHILS # (AUTO) 4.8 10^3/uL (1.8-7.8); NEUTROPHILS % (AUTO) 82 % (42-75); PLATELET COUNT 79 10^3/uL (130-400); WHITE BLOOD COUNT 5.9 10^3/uL (4.3-11.0)
--- NOTE | 2022-03-05 05:53 | Progress Note - Hospitalist ---
Subjective HPI/CC On Admission Date Seen by Provider: March 05, 2022 Time Seen by Provider: 09:00 Subjective/Events-last exam Pt is doing pretty well Awaiting retirement placement Pt appears to be very end-stage COPD Labs remain stable Review of Systems General: Fatigue, Malaise Pulmonary: Dyspnea Objective Exam Vital Signs Vital Signs Date Time Temp Pulse Resp B/P (MAP) Pulse Ox O2 Delivery O2 Flow Rate FiO2 03/06/22 04:49 36.4 87 18 110/53 (72) 93 High Flow N/C 3.00 03/06/22 01:01 32 Capillary Refill : Less Than 3 Seconds General Appearance: No Apparent Distress, WD/WN, Anxious, Chronically ill, Obese Respiratory: No Accessory Muscle Use, No Respiratory Distress, Decreased Breath Sounds Cardiovascular: Regular Rate, Rhythm Neurologic/Psychiatric: Alert, Oriented x3, No Motor/Sensory Deficits, Normal Mood/Affect Results/Procedures Lab Patient resulted labs reviewed. 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 and intubation if needed per patient request Pneumonia Hypertension Hyperlipidemia Atrial fibrillation with RVR status post conversion to normal sinus rhythm spo ntaneously s/p amiodarone drip Plan: ICU care Precedex BiPAP 02/17/2022: Intubated Appreciate eICU 02/18/2022: Supportive care Maintain intubation 02/19/22: Monitor closely 02/20/2022: Start tube feeds 02/21/2022: Appreciate ventilator management Poor prognosis 02/22/2022: Trach and PEG placement on Friday Poor prognosis 02/23/2022: Extubated End-stage COPD places patient at risk for recurrent respiratory failure 02/24/2022: Supportive care Appreciate cardiology 03/01/2022: [facility] Friday Poor prognosis 03/03/2022: Supportive care Await placement 03/04/2022: Supportive care Awaiting placement 03/05/2022: Awaiting placement Critical Care Critically Ill Patient Clinical Quality Measures AMI/AHF: ASA po Prior to arrival: CURTIS Patterson DO March 05, 2022 05:53
[2022-03-05 05:54] LABS: ALBUMIN 3.4 GM/DL (3.2-4.5); BILIRUBIN,TOTAL 0.6 MG/DL (0.1-1.0); CALCIUM 9.3 MG/DL (8.5-10.1); CREATININE SERUM 0.81 MG/DL (0.60-1.30); POTASSIUM 3.4 MMOL/L (3.6-5.0); TOTAL PROTEIN 6.2 GM/DL (6.4-8.2)
[2022-03-05] MEDS: KCL 20 MEQ TAB (K-DUR) PO SCH ×2 (06:09→08:23)
[2022-03-05] MEDS: CATHETER FLUSH 10 ML SYR IV SCH ×3 (06:27→22:03)
[2022-03-05] MEDS ORDERED: KCL 20 MEQ TAB (K-DUR) PO ONE (07:00)
[2022-03-05 07:36] VITALS: BP 117/62
[2022-03-05] MEDS: dilTIAZem120 MG (CARDIZEM CD) CAP PO SCH (08:22)
[2022-03-05] MEDS: guaiFENesin (MUCINEX) 600 MG TAB PO SCH ×2 (08:22→20:01)
[2022-03-05] MEDS: PHENAZOPYRIDINE 100 MG (PYRIDIUM) TABLET PO SCH ×3 (08:23→18:21)
[2022-03-05] MEDS: NICOTINE 21 MG (NICODERM) PATCH TD SCH (08:23)
[2022-03-05] MEDS: oxyCODONE ER 10 MG (OxyCONTIN CR) TAB PO SCH ×2 (08:23→20:01)
[2022-03-05] MEDS: FUROSEMIDE 40 MG (LASIX) TAB PO SCH (08:23)
[2022-03-05] MEDS: DOCUSATE SODIUM 10 MG/ML 10 ML UDC (COLACE) GT SCH ×2 (08:23→20:00)
[2022-03-05] MEDS: AMIODARONE 200 MG (CORDARONE) TAB PO SCH ×2 (08:23→20:01)
[2022-03-05] MEDS: NICOTINE PATCH REMOVAL TP SCH (08:45)
[2022-03-05] MEDS: polyethylene glycoL POWDER 17 GM (MIRALAX) PACK PO SCH ×2 (08:45→20:00)
--- NOTE | 2022-03-05 10:37 | Occupational Ther Daily Note ---
OT Current Status-Daily Note Subjective Pt alert, lying in bed. Pt agrees to therapy. No c/o pain. Mental Status/Objective Patient Orientation: Person, Place, Time, Situation Attachments: IV ADL-Treatment Pt completed oral care by self after set up. Pt has difficulty with B UE coordination though is demonstrating progress with this during functional tasks. Pt able to pull self up in bed with verbal cues and foot of bed elevated. After therapy, pt in bed with call light/phone in reach. All needs met in room. Safety measures in place. Therapy Code Descriptions/Definitions Functional [place] Measure: 0=Not Assessed/NA 4=Minimal Assistance 1=Total Assistance 5=Supervision or Setup 2=Maximal Assistance 6=Modified [place] 3=Moderate Assistance 7=Complete IndependenceSCALE: Activities may be completed with or without assistive devices. 4-Vfwvfdbzxv-baihiwc completes the activity by him/herself with no assistance from a helper. 5-Set-up or Clean-up Assistance-helper sets up or cleans up; patient completes activity. [place] assists only prior to or following the activity. 4-Supervision or Touching Assistance-helper provides verbal cues and/or touching/steadying and/or contact guard assistance as patient completes activity. Assistance may be provided throughout the activity or intermittently. 3-Partial/Moderate Assistance-helper does LESS THAN HALF the effort. [place] lifts, holds or supports trunk or limbs, but provides less than half the effort. 2-Substantial/Maximal Assistance-helper does MORE THAN HALF the effort. [place] lifts or holds trunk or limbs and provides more than half the effort. 0-Mtbjklgae-nhtpcd does ALL the effort. Patient does none of the effort to complete the activity. Or, the assistance of 2 or more helpers is required for the patient to complete the activity. If activity was not attempted, code reason: 7-Patient Refused. 9-Not Applicable-not attempted and the patient did not perform the activity before the current illness, exacerbation or injury. 10-Not Attempted due to Environmental Limitations-(lack of equipment, weather restraints, etc.). 88-Not Attempted due to Medical Conditions or Safety Concerns. Oral Hygiene (QC): 5 OT Longterm Goals Longterm Goals Time Frame: March 15, 2022 Eating (QC): 5 Oral Hygiene (QC): 5 Toileting Hygiene (QC): 4 Shower/Bathe Self (QC): 3 Upper Body Dressing (QC): 4 Lower Body Dressing (QC): 3 On/Off Footwear (QC): 3 Additional Goals: 1-Demonstrate ADL Tasks, 2-Verbalize Understanding, 3- ImproveStrength/Yvette 1=Demonstrate adherence to instructed precautions during ADL tasks. 2=Patient will verbalize/demonstrate understanding of assistive devices/modifications for ADL. 3=Patient will improve strength/tolerance for activity to enable patient to perform ADL's. OT Education/Plan Problem List/Assessment Assessment: Decreased UE Strength, Impaired Bed Mobility, Impaired Coordination, Impaired Self-Care Skills, Restricted Funct UE ROM Discharge Recommendations Plan/Recommendations: Continue POC Treatment Plan/Plan of Care Patient would benefit from OT for education, treatment and training to promote independence in ADL's, mobility, safety and/or upper extremity function for ADL's. Plan of Care: ADL Retraining, Functional Mobility, UE Funct Exercise/Act Treatment Duration: March 15, 2022 Frequency: 3 times per week (3-5 times per week) Estimated Hrs Per Day: .25 hour per day Rehab Potential: Guarded Time/GCodes Start Time: 09:55 Stop Time: 10:05 Total Time Billed (hr/min): 10 Billed Treatment Time 1 visit-ADL 1 (10 min) TI OCAMPO March 05, 2022 10:37
--- NOTE | 2022-03-05 13:55 | Physical Therapy Daily Note ---
PT Daily Note-Current Subjective Patient in bed pre tx, agrees to PT, has no complaints of pain. Appearance Patient in recliner post tx with nurse call, phone, tray, all needs met, chair alarm on. Mental Status Patient Orientation: Person, Place, Situation Attachments: Oxygen Transfers SCALE: Activities may be completed with or without assistive devices. 0-Ywatqgstsw-vizcgob completes the activity by him/herself with no assistance from a helper. 5-Set-up or Clean-up Assistance-helper sets up or cleans up; patient completes activity. [place] assists only prior to or following the activity. 4-Supervision or Touching Assistance-helper provides verbal cues and/or touching/steadying and/or contact guard assistance as patient completes activi ty. Assistance may be provided throughout the activity or intermittently. 3-Partial/Moderate Assistance-helper does LESS THAN HALF the effort. [place] lifts, holds or supports trunk or limbs, but provides less than half the effort. 2-Substantial/Maximal Assistance-helper does MORE THAN HALF the effort. [place] lifts or holds trunk or limbs and provides more than half the effort. 8-Sqpxhwxxm-mjmeke does ALL the effort. Patient does none of the effort to complete the activity. Or, the assistance of 2 or more helpers is required for the patient to complete the activity. If activity was not attempted, code reason: 7-Patient Refused. 9-Not Applicable-not attempted and the patient did not perform the activity before the current illness, exacerbation or injury. 10-Not Attempted due to Environmental Limitations-(lack of equipment, weather restraints, etc.). 88-Not Attempted due to Medical Conditions or Safety Concerns. Roll Left & Right (QC): 4 Lying to Sitting/Side of Bed(Q: 4 Sit to Stand (QC): 1 Chair/Ils-ry-Oqfiy Xfer(QC): 1 Patient was able to perform supine to sit with SBA today, he had some difficulty but did it without assist. Transfer from bed to recliner was still dependent though, no improvement. Exercises Seated Therapy Exercises: Ankle pumps, Long arc quads Seated Reps: 20 Treatments bed mobility and transfers, LE AROM Assessment Current Status: Fair Progress some improvement with bed mobility and supine to sit PT Short Term Goals Short Term Goals Time Frame: March 16, 2022 Roll Left & Right: 3 Sit to lyin Lying to sitting on side of be: 3 Sit to stand: 3 Chair/cpz-md-biltd transfer: 3 Toilet transfer: 3 Walk 10 feet: 3 PT Long-Term Goals Long-Term Goals PT Insurance Plan Specialist Goals Time Frame: Apr 06, 2022 Roll Left & Right (QC): 6 Sit to Lying (QC): 6 Lying-Sitting on Side/Bed(QC): 6 Sit to Stand (QC): 6 Chair/Tnp-si-Pnldb Xfer(QC): 6 Toilet Transfer (QC): 6 Car Transfer (QC): 6 Walk 10 feet (QC): 6 Walk 50ft with 2 Turns (QC): 6 Walk 150 ft (QC): 6 PT Plan Problem List Problem List: Activity Tolerance, Functional Strength, Safety, Balance, Gait, Transfer, Bed Mobility, ROM Treatment/Plan Treatment Plan: Continue Plan of Care Treatment Plan: Bed Mobility, Education, Functional Activity Yvette, Functional Strength, Gait, Safety, Therapeutic Exercise, Transfers Treatment Duration: Apr 06, 2022 Frequency: 6 times per week Estimated Hrs Per Day: .25 hour per day Patient and/or Family Agrees t: Yes Safety Risks/Education Patient Education: Transfer Techniques, Correct Positioning, Safety Issues Teaching Recipient: Patient Teaching Methods: Demonstration, Discussion Response to Teaching: Reinforcement Needed Time/GCodes Time In: 1325 Time Out: 1335 Total Billed Treatment Time: 10 Total Billed Treatment 1 visit FA JENNYFER RAMOS PT March 05, 2022 13:55
[2022-03-05] MEDS: ENOXAPARIN 40 MG/0.4 ML (LOVENOX) SYR SQ SCH (20:00)
[2022-03-05] MEDS: PROMETHAZINE/ CODEINE SYRUP 5 ML UDC PO PRN (22:02)
[2022-03-06 00:18] VITALS: BP 116/68
[2022-03-06] MEDS: inSUlin ASPART (NovoLOG) 1 UNIT/0.01 ML (CHARGE PER UNIT) SC SCH ×3 (00:22→11:20)
[2022-03-06 01:01] VITALS: BP 116/68
[2022-03-06] MEDS: RT-ALBUTEROL/IPRATROPIUM 3 ML (DUONEB) VIAL INH SCH ×2 (03:20→07:53)
[2022-03-06 04:49] VITALS: BP 110/53
[2022-03-06] MEDS: HYDROcodone/APAP 7.5 MG/325 MG (LORTAB, LORCET PLUS) TABLET PO PRN (04:57)
[2022-03-06 06:10] LABS: HEMOGLOBIN 11.4 g/dL (13.3-17.7); MEAN CORPUSCULAR HGB CONC 33 g/dL (32-36); MONOCYTES # (AUTO) 0.3 10^3/uL (0.0-1.0); NEUTROPHILS % (AUTO) 74 % (42-75)
[2022-03-06 06:12] LABS: BASOPHILS % (AUTO) 0 % (0-10); EOSINOPHILS # (AUTO) 0.1 10^3/uL (0.0-0.3); EOSINOPHILS % (AUTO) 2 % (0-10); HEMATOCRIT 35 % (40-54); LYMPHOCYTES # (AUTO) 0.9 10^3/uL (1.0-4.0); LYMPHOCYTES % (AUTO) 18 % (12-44); MEAN CORPUSCULAR HEMOGLOBIN 31 pg (25-34); MEAN CORPUSCULAR VOLUME 93 fL (80-99); MEAN PLATELET VOLUME 11.4 fL (9.0-12.2); MONOCYTES % (AUTO) 6 % (0-12); NEUTROPHILS # (AUTO) 3.7 10^3/uL (1.8-7.8); PLATELET COUNT 85 10^3/uL (130-400)
[2022-03-06 06:23] LABS: ALBUMIN 3.5 GM/DL (3.2-4.5); POTASSIUM 3.8 MMOL/L (3.6-5.0)
[2022-03-06 06:24] LABS: CALCIUM 9.5 MG/DL (8.5-10.1)
[2022-03-06 06:26] LABS: TOTAL PROTEIN 6.3 GM/DL (6.4-8.2)
[2022-03-06 06:28] LABS: BILIRUBIN,TOTAL 0.7 MG/DL (0.1-1.0)
[2022-03-06 06:29] LABS: CREATININE SERUM 0.71 MG/DL (0.60-1.30)
[2022-03-06] MEDS: KCL 20 MEQ TAB (K-DUR) PO SCH (06:30)
--- NOTE | 2022-03-06 06:33 | Progress Note - Hospitalist ---
Subjective HPI/CC On Admission Date Seen by Provider: March 06, 2022 Time Seen by Provider: 10:30 Objective Exam Vital Signs Vital Signs Date Time Temp Pulse Resp B/P (MAP) Pulse Ox O2 Delivery O2 Flow Rate FiO2 03/06/22 08:00 High Flow N/C 3.00 03/06/22 07:41 36.6 89 18 99/52 (68) 91 03/06/22 01:01 32 Capillary Refill : Less Than 3 Seconds Results/Procedures Lab Laboratory Tests 03/06/22 05:22 Patient resulted labs reviewed. 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 and intubation if needed per patient request Pneumonia Hypertension Hyperlipidemia Atrial fibrillation with RVR status post conversion to normal sinus rhythm spontaneously s/p amiodarone drip Plan: ICU care Precedex BiPAP 02/17/2022: Intubated Appreciate eICU 02/18/2022: Supportive care Maintain intubation 02/19/22: Monitor closely 02/20/2022: Start tube feeds 02/21/2022: Appreciate ventilator management Poor prognosis 02/22/2022: Trach and PEG placement on Friday Poor prognosis 02/23/2022: Extubated End-stage COPD places patient at risk for recurrent respiratory failure 02/24/2022: Supportive care Appreciate cardiology 03/01/2022: [facility] Friday Poor prognosis 03/03/2022: Supportive care Await placement 03/04/2022: Supportive care Awaiting placement 03/05/2022: Awaiting placement Critical Care Critically Ill Patient Clinical Quality Measures AMI/AHF: ASA po Prior to arrival: CURTIS Patterson DO March 06, 2022 06:33
[2022-03-06] MEDS: CATHETER FLUSH 10 ML SYR IV SCH (06:36)
[2022-03-06 07:41] VITALS: BP 99/52
[2022-03-06] MEDS: guaiFENesin (MUCINEX) 600 MG TAB PO SCH (08:42)
[2022-03-06] MEDS: dilTIAZem120 MG (CARDIZEM CD) CAP PO SCH (08:42)
[2022-03-06] MEDS: FUROSEMIDE 40 MG (LASIX) TAB PO SCH (08:42)
[2022-03-06] MEDS: PHENAZOPYRIDINE 100 MG (PYRIDIUM) TABLET PO SCH (08:42)
[2022-03-06] MEDS: AMIODARONE 200 MG (CORDARONE) TAB PO SCH (08:42)
[2022-03-06] MEDS: NICOTINE PATCH REMOVAL TP SCH (08:42)
[2022-03-06] MEDS: polyethylene glycoL POWDER 17 GM (MIRALAX) PACK PO SCH (08:43)
[2022-03-06] MEDS: NICOTINE 21 MG (NICODERM) PATCH TD SCH (08:43)
[2022-03-06] MEDS: DOCUSATE SODIUM 10 MG/ML 10 ML UDC (COLACE) GT SCH (08:43)
[2022-03-06] MEDS: oxyCODONE ER 10 MG (OxyCONTIN CR) TAB PO SCH (08:43)
--- NOTE | 2022-03-06 10:25 | Physical Therapy Daily Note ---
PT Daily Note-Current Subjective Patient in recliner pre tx, agrees to PT, has no complaints of pain. Appearance Patient in recliner post tx with nurse call, phone, tray, all needs met. Mental Status Patient Orientation: Person, Place, Situation Attachments: Oxygen Transfers SCALE: Activities may be completed with or without assistive devices. 6-Slgoglkboe-hxiwuun completes the activity by him/herself with no assistance from a helper. 5-Set-up or Clean-up Assistance-helper sets up or cleans up; patient completes activity. [place] assists only prior to or following the activity. 4-Supervision or Touching Assistance-helper provides verbal cues and/or touching/steadying and/or contact guard assistance as patient completes activity. Assistance may be provided throughout the activity or intermittently. 3-Partial/Moderate Assistance-helper does LESS THAN HALF the effort. [place] lifts, holds or supports trunk or limbs, but provides less than half the effort. 2-Substantial/Maximal Assistance-helper does MORE THAN HALF the effort. [place] lifts or holds trunk or limbs and provides more than half the effort. 7-Ohsbzgccj-xmfckv does ALL the effort. Patient does none of the effort to complete the activity. Or, the assistance of 2 or more helpers is required for the patient to complete the activity. If activity was not attempted, code reason: 7-Patient Refused. 9-Not Applicable-not attempted and the patient did not perform the activity before the current illness, exacerbation or injury. 10-Not Attempted due to Environmental Limitations-(lack of equipment, weather restraints, etc.). 88-Not Attempted due to Medical Conditions or Safety Concerns. Sit to Stand (QC): 1 Patient stood x2 for about 30 seconds each time with assist of 2. One person is required to stand patient while another is required to straighten hips. Exercises Seated Therapy Exercises: Ankle pumps, Long arc quads Seated Reps: 20 Treatments standing, LE exercise Assessment Current Status: Fair Progress Patient makes tiny improvements in strength every day. He was slightly improved with sit to stand (max assist), uses his arms more effectively pushing off of the arm rests. PT Short Term Goals Short Term Goals Time Frame: March 16, 2022 Roll Left & Right: 3 Sit to lyin Lying to sitting on side of be: 3 Sit to stand: 3 Chair/eij-zo-dxien transfer: 3 Toilet transfer: 3 Walk 10 feet: 3 PT Chief Technical Officer Goals Correction Goals PT Correction Goals Time Frame: Apr 06, 2022 Roll Left & Right (QC): 6 Sit to Lying (QC): 6 Lying-Sitting on Side/Bed(QC): 6 Sit to Stand (QC): 6 Chair/Vlr-hz-Opdlm Xfer(QC): 6 Toilet Transfer (QC): 6 Car Transfer (QC): 6 Walk 10 feet (QC): 6 Walk 50ft with 2 Turns (QC): 6 Walk 150 ft (QC): 6 PT Plan Problem List Problem List: Activity Tolerance, Functional Strength, Safety, Balance, Gait, Transfer, Bed Mobility, ROM Treatment/Plan Treatment Plan: Continue Plan of Care Treatment Plan: Bed Mobility, Education, Functional Activity Yvette, Functional Strength, Gait, Safety, Therapeutic Exercise, Transfers Treatment Duration: Apr 06, 2022 Frequency: 6 times per week Estimated Hrs Per Day: .25 hour per day Patient and/or Family Agrees t: Yes Safety Risks/Education Patient Education: Correct Positioning, Safety Issues Teaching Recipient: Patient Teaching Methods: Demonstration, Discussion Response to Teaching: Reinforcement Needed Time/GCodes Time In: 0957 Time Out: 1007 Total Billed Treatment Time: 10 Total Billed Treatment 1 visit FA JENNYFER RAMOS PT March 06, 2022 10:25
[2022-03-06] MEDS ORDERED: AMIO200T65 PO (10:58)
[2022-03-06] MEDS ORDERED: HYDR-3817 PO (10:58)
--- NOTE | 2022-03-06 11:00 | D/C HH Face to Face Order ---
D/C HH Face to Face Orders Reconcile Patient Problems Problems Reviewed?: Yes Instructions for Patient HH Patient Instructions/FollowUp: PCP 1 week Physician to follow Patient: [facility] Discharge Diet for Home: No Restrictions Patient Problems: COPD Patient Data-Allergies,Ht & Wt Patient Allergies: Coded Allergies: No Known Drug Allergies (Unverified , 11/26/21) Home Health Need/Face to Face Date of Face to Face: March 06, 2022 Clinical Findings: Generalized weakness and fatigue, Instability, Muscle weakn ess, Shortness of breath I have seen Pt osiu-bj-uwue: Yes Discharged To: Home Diagnosis/Conditions: COPD Patient is Homebound due to: CognItive deficits, Muscle weakness, Shortness of breath/distress Homebound Status Due to the above stated illness, injury or surgical procedure (medical condition or diagnosis) and associated clinical findings, the patient is homebound because of his/her inability to leave home except with aid of a supportive device and/or person AND leaving the home requires a considerable and taxing effort or is medically contraindicated. Pt req the following assistanc: Walker Home Health Nursing Orders Home Health Services Order: Nursing Services, Orthopaedic Technologist-Evaluate & Treat, Physical Therapy-Evaluate & Treat Home Health Infusion Therapy Line Start Date: February 28, 2022 Certify Stmt I certify that this patient is under my care and that I, a nurse practitioner or a physician; a melter assistant working with me, had a face to face encounter that - meets the physician face to face encounter requirements with this patient as dated. CURTIS MOSLEY DO March 06, 2022 11:00
--- NOTE | 2022-03-06 11:01 | Discharge Summary ---
Discharge Summary Hospital Course Was the Problem List Reviewed?: Yes Problems/Dx: (1) Paroxysmal atrial fibrillation Status: Acute (2) Ventricular tachycardia (3) Chronic heart failure with preserved ejection fraction (HFpEF) (4) Pulmonary hypertension (5) Primary hypertension (6) Mixed hyperlipidemia (7) Acute and chronic respiratory failure with hypoxia Status: Resolved (8) Cigarette smoker Hospital Course Date of Admission: Feb 12, 2022 at 13:35 Admission Diagnosis : Family Physician/Provider: [facility] Reggie Gutiérrez Date of Discharge: 03/06/22 Discharge Diagnosis: Acute on chronic respiratory failure, status post failure of BiPAP, status post long intubation, atrial fibrillation Hospital Course: Pt had a lengthy hospital course for 23 days, most of it in the ICU when he was intubated after he failed by BiPAP after several days of trial. His end stage COPD precluded anything but a poor prognosis. He ultimately was able to be extubated two days prior to PEG tube and trach placement and he actually stabilized. Although his end stage COPD was a concern for anything long filler cigar roller machine. He was optimized on medical therapy, PT and OT worked with him. He is awaiting mcc placement. He was deemed stable for discharge. Labs and Pending Lab Test: Laboratory Tests 03/06/22 00:17: Glucometer 107 03/06/22 05:22: White Blood Count 5.0, Red Blood Count 3.71L, Hemoglobin 11.4L, Hematocrit 35L, Mean Corpuscular Volume 93, Mean Corpuscular Hemoglobin 31, Mean Corpuscular Hemoglobin Concent 33, Red Cell Distribution Width 15.4H, Platelet Count 85L, Mean Platelet Volume 11.4, Immature Granulocyte % (Auto) 1, Neutrophils (%) (Auto) 74, Lymphocytes (%) (Auto) 18, Monocytes (%) (Auto) 6, Eosinophils (%) (Auto) 2, Basophils (%) (Auto) 0, Neutrophils # (Auto) 3.7, Lymphocytes # (Auto) 0.9L, Monocytes # (Auto) 0.3, Eosinophils # (Auto) 0.1, Basophils # (Auto) 0.0, Immature Granulocyte # (Auto) 0.1, Percent Immature Platelet Fraction 7.7H, Sodium Level 136, Potassium Level 3.8, Chloride Level 98, Carbon Dioxide Level 25, Anion Gap 13, Blood Urea Nitrogen 17, Creatinine 0.71, Estimat Glomerular Filtration Rate 101, BUN/Creatinine Ratio 24, Glucose Level 86, Calcium Level 9.5, Corrected Calcium 9.9, Total Bilirubin 0.7, Aspartate Amino Transf (AST/SGOT) 30, Alanine Aminotransferase (ALT/SGPT) 45, Alkaline Phosphatase 107, Total Protein 6.3L, Albumin 3.5 Microbiology 02/23/22 Blood Culture - Final, Complete No growth 02/17/22 Gram Stain - Final, Complete 02/17/22 Sputum Culture - Final, Complete Usual upper respiratory ravi Home Meds Active Amiodarone HCl 200 Mg Tablet 200 Mg PO BID Hydrocodone-Acetamin 7.5-325 (Hydrocodone/Acetaminophen) 7.5 Mg-325 Mg Tablet 1 Ea PO Q8H PRN Reported Ferrous Sulfate 325 Mg (65 Mg Iron) Tablet 325 Mg PO Q48H Multivitamin 1 Each Tablet 1 Each PO DAILY Diltiazem ER (Diltiazem HCl) 120 Mg Capsule.er 120 Mg PO DAILY Potassium Chloride 20 Meq Tab.er.prt 20 Meq PO DAILY Magnesium Oxide 400 Mg Tablet 400 Mg PO HS Pantoprazole Sodium 40 Mg Tablet.dr 40 Mg PO HS Mucinex (Guaifenesin) 1,200 Mg Tab.er.12h 1,200 Mg PO BID Iprat-Albut 0.5-3(2.5) mg/3 ml (Ipratropium/Albuterol Sulfate) 3 Ml Ampul.neb 3 Ml IH QID PRN Furosemide 40 Mg Tablet 40 Mg PO DAILY Atorvastatin Calcium 20 Mg Tablet 20 Mg PO DAILY Assessment/Pt Instructions PCP in 1 week Discharge Planning: <30 minutes discharge planning Discharge Instructions Discharge Diet: No Restrictions Activity as Tolerated: Yes Discharge Physical Examination Vital Signs Vital Signs Date Time Temp Pulse Resp B/P (MAP) Pulse Ox O2 Delivery O2 Flow Rate FiO2 03/06/22 08:00 High Flow N/C 3.00 03/06/22 07:41 36.6 89 18 99/52 (68) 91 03/06/22 01:01 32 General Appearance: No Apparent Distress, WD/WN, Chronically ill Respiratory: Lungs Clear, Normal Breath Sounds Cardiovascular: Regular Rate, Rhythm Neurologic/Psychiatric: Alert, Oriented x3 Allergies: Coded Allergies: No Known Drug Allergies (Unverified , 11/26/21) Discharge Summary Date of Admission Feb 12, 2022 at 13:35 Date of Discharge Discharge Date: March 06, 2022 Discharge Diagnosis Assessment: Acute on chronic respiratory failure requiring BiPAP but failed and intubated on 02/17/2022 and extubated on 02/23/2022 End-stage COPD but still remains full code and intubation if needed per patient request Pneumonia Hypertension Hyperlipidemia Atrial fibrillation with RVR status post conversion to normal sinus rhythm spontaneously s/p amiodarone drip Plan: ICU care Precedex BiPAP 02/17/2022: Intubated Appreciate eICU 02/18/2022: Supportive care Maintain intubation 02/19/22: Monitor closely 02/20/2022: Start tube feeds 02/21/2022: Appreciate ventilator management Poor prognosis 02/22/2022: Trach and PEG placement on Friday Poor prognosis 02/23/2022: Extubated End-stage COPD places patient at risk for recurrent respiratory failure 02/24/2022: Supportive care Appreciate cardiology 03/01/2022: Medical Griswold Barnhart Friday Poor prognosis 03/03/2022: Supportive care Await placement 03/04/2022: Supportive care Awaiting placement 03/05/2022: Awaiting placement (1) Paroxysmal atrial fibrillation Status: Acute Assessment & Plan: He developed atrial fibrillation on 02/23. He had persistent tachycardia despite high-dose of intravenous diltiazem as well as an amiodarone infusion. As such, I had him undergo a cardioversion on 02/23 which was successful. He has remained in sinus rhythm since that time. I transitioned the intravenous amiodarone over to oral amiodarone. I stopped the intravenous diltiazem infusion. I suspect the atrial fibrillation was brought on by his acute, noncardiac illness. The atrial fibrillation lasted for less than 24 hours. As such, I do not see any strong indication for oral anticoagulation at this time. We will need to taper the amiodarone over time. Given that his respiratory status is improved, I reduced the amiodarone to 200 mg twice a day on 02/27. This will need further tapering and can probably ultimately be discontinued following discharge. His is arranging for follow up with his regular fire engineer in [place] after discharge. (2) Ventricular tachycardia Assessment & Plan: I suspect this was brought on by hypoxia that occurred during lightening of his sedation and weaning trials prior to his extubation. He had an echocardiogram during this hospitalization that shows a normal ejection fraction. His magnesium level is normal but his potassium level was slightly low. I would try to keep his potassium level closer to 4. Continue diltiazem. He may need an ischemic evaluation once he recovers from this acute illness. This could certainly be done as an outpatient by his regular fire engineer at the outside facility in [place], [place]. (3) Chronic heart failure with preserved ejection fraction (HFpEF) Assessment & Plan: His chest x-rays improved. His oxygen requirements have improved. I recommend he continue on the oral furosemide. I had given him 2 daily doses of intravenous furosemide on 02/22 and 02/23. I will hold off on any further intravenous furosemide at this time. (4) Pulmonary hypertension Assessment & Plan: He has severe pulmonary hypertension as noted on his echocardiogram earlier in this hospitalization. I suspect this is due to his chronic obstructive pulmonary disease and chronic hypoxic respiratory failure. He may benefit from home oxygen if he has not already been using this. He needs to quit smoking. (5) Primary hypertension Assessment & Plan: Continue diltiazem. He has been receiving short acting diltiazem before and after being extubated. I will change his back over to diltiazem CD which he was taking at home. (6) Mixed hyperlipidemia Assessment & Plan: He was taking atorvastatin at home which should be continued. (7) Acute and chronic respiratory failure with hypoxia Status: Resolved Assessment & Plan: Most likely due to his chronic obstructive pulmonary disease and possibly a mild component of his chronic heart failure. The hospitalist is managing his pulmonary status. (8) Cigarette smoker Assessment & Plan: He needs to quit smoking. He seems to understand that this will be imperative. He stated that he is done with smoking. Clinical Quality Measures AMI/AHF: ASA po Prior to arrival: CURTIS Patterson DO March 06, 2022 11:01
[2022-03-06 11:42] VITALS: BP 111/62
[2022-03-06 12:50] VITALS: BP 111/62
--- NOTE | 2022-03-06 12:51 | Occupational Ther Daily Note ---
OT Current Status-Daily Note Subjective Pt alert, sitting in recliner. Pt stated that he is going home today and will have 4 people there to assist him getting into home. No c/o pain. Agrees to therapy. Mental Status/Objective Patient Orientation: Person, Place, Time, Situation Attachments: IV ADL-Treatment Therapy Code Descriptions/Definitions Functional [place] Measure: 0=Not Assessed/NA 4=Minimal Assistance 1=Total Assistance 5=Supervision or Setup 2=Maximal Assistance 6=Modified [place] 3=Moderate Assistance 7=Complete IndependenceSCALE: Activities may be completed with or without assistive devices. 6-Mlophlqcaw-rcjbkre completes the activity by him/herself with no assistance from a helper. 5-Set-up or Clean-up Assistance-helper sets up or cleans up; patient completes activity. [place] assists only prior to or following the activity. 4-Supervision or Touching Assistance-helper provides verbal cues and/or touching/steadying and/or contact guard assistance as patient completes activity. Assistance may be provided throughout the activity or intermittently. 3-Partial/Moderate Assistance-helper does LESS THAN HALF the effort. [place] lifts, holds or supports trunk or limbs, but provides less than half the effort. 2-Substantial/Maximal Assistance-helper does MORE THAN HALF the effort. [place] lifts or holds trunk or limbs and provides more than half the effort. 6-Fhxfewybf-iyzanv does ALL the effort. Patient does none of the effort to complete the activity. Or, the assistance of 2 or more helpers is required for the patient to complete the activity. If activity was not attempted, code reason: 7-Patient Refused. 9-Not Applicable-not attempted and the patient did not perform the activity before the current illness, exacerbation or injury. 10-Not Attempted due to Environmental Limitations-(lack of equipment, weather restraints, etc.). 88-Not Attempted due to Medical Conditions or Safety Concerns. Other Treatment Assist to place socks over feet then pt able to pull socks from ankles up calves with CGA for safety. Pt stood x2 for about 30 seconds each time with assist of 2. One person is required to stand patient while another is required to strai ghten hips. Pt completed shldr flexion 1 set 15 reps, shldrs 95*-90* in shldr flex only then fatigued ROM declined. After session, pt sitting in recliner with call light/phone in reach. OT Sealing Machine Operator Goals Snf Goals Time Frame: March 15, 2022 Eating (QC): 5 Oral Hygiene (QC): 5 Toileting Hygiene (QC): 4 Shower/Bathe Self (QC): 3 Upper Body Dressing (QC): 4 Lower Body Dressing (QC): 3 On/Off Footwear (QC): 3 Additional Goals: 1-Demonstrate ADL Tasks, 2-Verbalize Understanding, 3- ImproveStrength/Yvette 1=Demonstrate adherence to instructed precautions during ADL tasks. 2=Patient will verbalize/demonstrate understanding of assistive devices/modifications for ADL. 3=Patient will improve strength/tolerance for activity to enable patient to perform ADL's. OT Education/Plan Problem List/Assessment Assessment: Decreased Activ Tolerance, Decreased Safety Aware, Decreased UE St rength, Impaired Funct Balance, Impaired Self-Care Skills, Restricted Funct UE ROM Discharge Recommendations Plan/Recommendations: Continue POC Treatment Plan/Plan of Care Patient would benefit from OT for education, treatment and training to promote independence in ADL's, mobility, safety and/or upper extremity function for A DL's. Plan of Care: ADL Retraining, Functional Mobility, UE Funct Exercise/Act Treatment Duration: March 15, 2022 Frequency: 3 times per week (3-5 times per week) Estimated Hrs Per Day: .25 hour per day Rehab Potential: Guarded Time/GCodes Start Time: 09:57 Stop Time: 10:07 Total Time Billed (hr/min): 10 Billed Treatment Time 1 visit-FA 1 (10 min) TI OCAMPO March 06, 2022 12:51
== END 2022-03-06 12:50 | disposition home health service (06) | DRG 207 ==
LOC: EDUNIT# 09:28 → ER 09:29 → 4TH 13:35 → ICU 02-14 10:00 → 4TH 02-26 12:03
PROVIDERS: ADMIT Family Medicine; ATTEND Internal Medicine
PROC: 5A09457 Assistance with Respiratory Ventilation, 24-96 Consecutive Hours, Continuous Positive Airway Pressure (ICD-10-PCS; 2022-02-16)
PROC: 5A1955Z Respiratory Ventilation, Greater than 96 Consecutive Hours (ICD-10-PCS; principal; 2022-02-17)
PROC: 0BH18EZ Insertion of Endotracheal Airway into Trachea, Via Natural or Artificial Opening Endoscopic (ICD-10-PCS; 2022-02-17)
PROC: 5A2204Z Restoration of Cardiac Rhythm, Single (ICD-10-PCS; 2022-02-18)
PROC: 5A0955A Assistance with Respiratory Ventilation, Greater than 96 Consecutive Hours, High Flow/Velocity Cannula (ICD-10-PCS; 2022-02-27)
DX: J18.9 Pneumonia, unspecified organism (principal); J96.21 Acute and chronic respiratory failure with hypoxia; E46 Unspecified protein-calorie malnutrition; K52.0 Gastroenteritis and colitis due to radiation; I50.32 Chronic diastolic (congestive) heart failure; E87.0 Hyperosmolality and hypernatremia; N17.9 Acute kidney failure, unspecified; I47.2 Ventricular tachycardia; Z68.29 Body mass index [BMI] 29.0-29.9, adult; F17.210 Nicotine dependence, cigarettes, uncomplicated; J43.9 Emphysema, unspecified; I11.0 Hypertensive heart disease with heart failure; C61 Malignant neoplasm of prostate; I25.10 Atherosclerotic heart disease of native coronary artery without angina pectoris; I27.20 Pulmonary hypertension, unspecified; I48.0 Paroxysmal atrial fibrillation; R29.898 Other symptoms and signs involving the musculoskeletal system; Z20.822 Contact with and (suspected) exposure to COVID-19; E78.00 Pure hypercholesterolemia, unspecified; E78.5 Hyperlipidemia, unspecified; B19.20 Unspecified viral hepatitis C without hepatic coma; K21.9 Gastro-esophageal reflux disease without esophagitis; M19.91 Primary osteoarthritis, unspecified site; M06.9 Rheumatoid arthritis, unspecified; F32.A Depression, unspecified; I25.2 Old myocardial infarction
CPT/HCPCS: 36415; 36600; 71045; 71275; 80048; 80053; 80061; 81000; 82805; 82947; 83605; 83735; 83874; 83880; 84145; 84443; 84478; 84484; 85007; 85025; 85027; 85379; 85610; 85730; 86141; 87040; 87070; 87205; 87636; 93005; 93041; 93306; 93970; 94002; 94003; 94640; 94660; 94664; 94760; 94799; 96374; 96375

== ENCOUNTER 2022-05-26 06:13 | Inpatient (IN) | payer MEDICARE, MEDICAID ==
[~2022-05-26] VITALS: Ht 165 cm; Wt 94.0 kg
[~2022-05-26 06:13] MED LIST changes: +AMIO200T65 PO; +DILT120C85 PO; +FERR325T18 PO; +HYDR-3817 PO; +MAGN400T7 PO; +MULT-1136 PO; +POTA-179 PO
[2022-05-26] MEDS ORDERED: morphine INJ 10 MG/ML 1ML (SYR OR VIAL) IVP STA ×3 (06:21→07:00)
--- NOTE | 2022-05-26 06:29 | ED Respiratory ---
General Stated Complaint: SOA Source: patient, EMS History of Present Illness Date Seen by Provider: May 26, 2022 Time Seen by Provider: 06:10 Initial Comments Patient is a 66-year-old male history of COPD with multiple prior intubations. States that he has been getting sick with increasing shortness of breath over the last 2 weeks worse in the last couple of days. Nonproductive cough. No fevers or chills. Complains of body aches/joint pain all over. He has severe arthritis and takes hydrocodone daily. Recently had COVID within the last 3 weeks to months. Patient denies a history of heart attack in the past. He quit smoking about a month ago. He is wearing a nicotine patch on his right upper arm. He states that he saw his feeder associate 4 days ago and was started on antibiotics as well as a new inhaler. He denies smoking currently. Arrives per EMS in significant respiratory distress on 15 L simple facemask. Oxygen saturations 92 to 93%. Quite tachypneic in the upper 30s low 40s. Patient does desire intubation if necessary and full CODE STATUS. He is speaking in short 2-3 word sentences. Accessory muscle use. Quite wheezy and crackly in all lung lozada. All other review of systems reviewed and negative except as stated Timing/Duration: getting worse, other (2d-2weeks) Severity: severe Prior Episodes/Possible Cause: occasional episodes Associated Symptoms: chest pain/soreness, muscle aches, shortness of breath, other (arthritis pain) Allergies and Home Medications Allergies Coded Allergies: No Known Drug Allergies (Unverified , 11/26/21) Patient Home Medication List Home Medication List Reviewed: Yes Albuterol Sulfate (Albuterol Sulfate) 2.5 Mg/3 Ml (0.083 %) Vial.neb, 2.5 MG NEB Q6H PRN for SHORTNESS OF BREATH, (Reported) Entered as Reported by: ADDIS ZAPATA on 05/27/22 1455 Last Action: Reviewed Atorvastatin Calcium (Atorvastatin Calcium) 20 Mg Tablet, 20 MG PO DAILY, (Reported) Entered as Reported by: GENIA CODY on 11/26/21 1307 Last Action: Reviewed Diltiazem HCl (Diltiazem ER) 120 Mg Capsule.er, 120 MG PO DAILY, (Reported) Entered as Reported by: ADDIS ZAPATA on 02/13/221506 Last Action: Reviewed Ferrous Sulfate (Ferrous Sulfate) 325 Mg (65 Mg Iron) Tablet, 325 MG PO Q48H, (Reported) Entered as Reported by: ADDIS ZAPATA on 02/13/221506 Last Action: Reviewed Furosemide (Furosemide) 40 Mg Tablet, 40 MG PO DAILY, (Reported) Entered as Reported by: GENIA CODY on 11/26/211306 Last Action: Reviewed Guaifenesin (Mucinex) 1,200 Mg Tab.er.12h, 1,200 MG PO BID, (Reported) Entered as Reported by: GENIA CODY on 11/26/211306 Last Action: Reviewed Hydrocodone/Acetaminophen (Hydrocodone-Acetamin 10-325 mg) 10 Mg-325 Mg Tablet, 1 EACH PO TID PRN for PAIN-MODERATE (5-7), (Reported) Entered as Reported by: ROXANA WALLIS on 05/26/221308 Last Action: Reviewed Levofloxacin (Levofloxacin) 750 Mg Tablet, 750 MG PO DAILY, (Reported) Entered as Reported by: ADDIS ZAPATA on 05/27/221454 Last Action: Reviewed Magnesium Oxide (Magnesium Oxide) 400 Mg Tablet, 400 MG PO HS, (Reported) Entered as Reported by: ADDIS ZAPATA on 02/13/221506 Last Action: Reviewed Multivitamin (Multivitamin) 1 Each Tablet, 1 EACH PO DAILY, (Reported) Entered as Reported by: ADDIS ZAPATA on 02/13/221506 Last Action: Reviewed Pantoprazole Sodium (Pantoprazole Sodium) 40 Mg Tablet.dr, 40 MG PO HS, (Reported) Entered as Reported by: GENIA CODY on 11/26/211306 Last Action: Reviewed Potassium Chloride (Potassium Chloride) 20 Meq Tab.er.prt, 20 MEQ PO DAILY, (Reported) Entered as Reported by: ADDIS ZAPATA on 02/13/221506 Last Action: Reviewed Prednisone (Prednisone) 20 Mg Tab, MG PO DAILY, (Reported) Entered as Reported by: ADDIS ZAPATA on 05/27/221454 Last Action: Reviewed Tiotropium Br/Olodaterol HCl (Stiolto Respimat Inhal [place]) 2.5 Mcg-2.5 Mcg/Actuation Mist.inhal, 2 PUFF INH DAILY, (Reported) Entered as Reported by: ADDIS ZAPATA on 05/27/22 1455 Last Action: Reviewed Discontinued Medications Amiodarone HCl (Amiodarone HCl) 200 Mg Tablet, 200 MG PO BID Discontinued Reason: No Longer Taking Prescribed by: CURTIS MOSLEY on 03/06/22 1058 Last Action: Discontinued Hydrocodone/Acetaminophen (Hydrocodone-Acetamin 7.5-325) 7.5 Mg-325 Mg Tablet, 1 EA PO Q8H PRN for PAIN-MODERATE (5-7) Discontinued Reason: No Longer Taking Prescribed by: CURTIS MOSLEY on 03/06/22 1059 Last Action: Discontinued Ipratropium/Albuterol Sulfate (Iprat-Albut 0.5-3(2.5) mg/3 ml) 3 Ml Ampul.neb, 3 ML IH QID PRN for SHORTNESS OF BREATH, (Reported) Discontinued Reason: Duplicate Order Entered as Reported by: GENIA CODY on 11/26/21 1307 Last Action: Discontinued Review of Systems Review of Systems Constitutional: see HPI EENTM: no symptoms reported, other (dry mouth) Respiratory: short of breath, other (dry cough) Cardiovascular: no symptoms reported Gastrointestinal: abdominal pain Genitourinary: no symptoms reported Musculoskeletal: joint pain (arthritis) Skin: no symptoms reported Psychiatric/Neurological: Anxiety All Other Systems Reviewed Negative Unless Noted: Yes Past Uegamzc-Olhdky-Xshjwr Hx Immunizations Up To Date First/Initial COVID19 Vaccinat: APRIL 2021 Second COVID19 Vaccination [place]: MAY 2021 Third COVID19 Vaccination Date: APRIL 2021 Seasonal Allergies Seasonal Allergies: No Past Medical History Surgery/Hospitalization HX: COPD, CHF, PROSTRATE CA Surgeries: Yes Respiratory: Yes COPD, Emphysema Currently Using CPAP: No Currently Using BIPAP: No Cardiac: Yes (CHF) Coronary Artery Disease, Heart Attack, High Cholesterol, Hypertension, Peripheral Vascular Neurological: No Genitourinary: Yes Prostate Problems Gastrointestinal: Yes (HEP C) Gastroesophageal Reflux Musculoskeletal: Yes Arthritis, Rheumatoid Arthritis Endocrine: No HEENT: No Cancer: Yes Prostate Psychosocial: Yes Depression Integumentary: No Physical Exam Vital Signs - First Documented Capillary Refill : Height: '" Weight: lbs. oz. kg; 30.04 BMI Method: General Appearance: WD/WN, severe distress, obese Eyes: Bilateral Eye Normal Inspection HEENT: PERRL/EOMI, other (dry oral mucosa) Neck: normal inspection Respiratory: decreased breath sounds, accessory muscle use, crackles, wheezing Cardiovascular: tachycardia, other (2+ radial pulses bilaterally) Gastrointestinal: normal bowel sounds, soft Extremities: normal range of motion, non-tender, normal inspection, no pedal edema, normal capillary refill Neurologic/Psychiatric: no motor/sensory deficits, alert, normal mood/affect, oriented x 3 Skin: normal color, warm/dry Focused Exam Lactate Level 05/26/22 06:22: Lactic Acid Level 2.90*H 05/26/22 08:20: Lactic Acid Level 2.43*H Lactic Acid Level Laboratory Tests Test 05/26/22 06:22 05/26/22 08:20 Lactic Acid Level 2.90 MMOL/L (0.50-2.00) *H 2.43 MMOL/L (0.50-2.00) *H Progress/Results/Core Measures Suspected Sepsis SIRS Temperature: Pulse: Respiratory Rate: Laboratory Tests 05/26/22 06:22: White Blood Count 12.9H Blood Pressure / Mean: 05/26/22 06:22: Lactic Acid Level 2.90*H 05/26/22 08:20: Lactic Acid Level 2.43*H Laboratory Tests 05/26/22 06:22: Creatinine 1.19, INR Comment 0.9, Platelet Count 314, Total Bilirubin 0.3 Results/Orders Lab Results Laboratory Tests Test 05/26/22 06:22 05/26/22 07:23 05/26/22 07:30 05/26/22 08:20 Range/Units White Blood Count 12.9 H 4.3-11.0 10^3/uL Red Blood Count 4.50 4.30-5.52 10^6/uL Hemoglobin 12.7 L 13.3-17.7 g/dL Hematocrit 41 40-54 % Mean Corpuscular Volume 91 80-99 fL Mean Corpuscular Hemoglobin 28 25-34 pg Mean Corpuscular Hemoglobin Concent 31 L 32-36 g/dL Red Cell Distribution Width 15.9 H 10.0-14.5 % Platelet Count 314 130-400 10^3/uL Mean Platelet Volume 10.3 9.0-12.2 fL Immature Granulocyte % (Auto) 2 % Neutrophils (%) (Auto) 38 L 42-75 % Lymphocytes (%) (Auto) 52 H 12-44 % Monocytes (%) (Auto) 7 0-12 % Eosinophils (%) (Auto) 1 0-10 % Basophils (%) (Auto) 1 0-10 % Neutrophils # (Auto) 4.8 1.8-7.8 10^3/uL Lymphocytes # (Auto) 6.8 H 1.0-4.0 10^3/uL Monocytes # (Auto) 0.9 0.0-1.0 10^3/uL Eosinophils # (Auto) 0.1 0.0-0.3 10^3/uL Basophils # (Auto) 0.1 0.0-0.1 10^3/uL Immature Granulocyte # (Auto) 0.3 H 0.0-0.1 10^3/uL Neutrophils % (Manual) 39 % Lymphocytes % (Manual) 58 % Monocytes % (Manual) 2 % Myelocytes % 1 % Blood Morphology Comment NORMAL Prothrombin Time 12.9 12.2-14.7 SEC INR Comment 0.9 0.8-1.4 Activated Partial Thromboplast Time 28 24-35 SEC Sodium Level 142 135-145 MMOL/L Potassium Level 3.8 3.6-5.0 MMOL/L Chloride Level 105 98-107 MMOL/L Carbon Dioxide Level 20 L 21-32 MMOL/L Anion Gap 17 H 5-14 MMOL/L Blood Urea Nitrogen 22 H 7-18 MG/DL Creatinine 1.19 0.60-1.30 MG/DL Estimat Glomerular Filtration Rate 67 BUN/Creatinine Ratio 18 Glucose Level 269 H 70-105 MG/DL Lactic Acid Level 2.90 *H 2.43 *H 0.50-2.00 MMOL/L Calcium Level 9.2 8.5-10.1 MG/DL Corrected Calcium 9.0 8.5-10.1 MG/DL Total Bilirubin 0.3 0.1-1.0 MG/DL Aspartate Amino Transf (AST/SGOT) 89 H 5-34 U/L Alanine Aminotransferase (ALT/SGPT) 54 0-55 U/L Alkaline Phosphatase 118 40-136 U/L C-Reactive Protein High Sensitivity 0.12 0.00-0.50 MG/DL B-Type Natriuretic Peptide 454.9 H <100.0 PG/ML Total Protein 7.9 6.4-8.2 GM/DL Albumin 4.3 3.2-4.5 GM/DL Triglycerides Level 225 H <150 MG/DL Cholesterol Level 228 H < 200 MG/DL LDL Cholesterol Direct 130 H 1-129 MG/DL VLDL Cholesterol 45 H 5-40 MG/DL HDL Cholesterol 78 H 40-60 MG/DL Procalcitonin 0.05 <0.10 NG/ML Thyroid Stimulating Hormone (TSH) 5.14 H 0.35-4.94 UIU/ML Urine Color YELLOW Urine Clarity CLEAR Urine pH 6.5 5-9 Urine Specific [place] 1.020 1.016-1.022 Urine Protein 2+ H NEGATIVE Urine Glucose (UA) TRACE H NEGATIVE Urine Ketones NEGATIVE NEGATIVE Urine Nitrite NEGATIVE NEGATIVE Urine Bilirubin NEGATIVE NEGATIVE Urine Urobilinogen 0.2 < = 1.0 MG/DL Urine Leukocyte Esterase NEGATIVE NEGATIVE Urine RBC (Auto) NEGATIVE NEGATIVE Urine RBC NONE /HPF Urine WBC 0-2 /HPF Urine Squamous Epithelial Cells 0-2 /HPF Urine Crystals NONE /LPF Urine Bacteria FEW H /HPF Urine Casts PRESENT /LPF Urine Hyaline Casts 0-2 H /LPF Urine Mucus NEGATIVE /LPF Urine Culture Indicated CULTURE PENDING Blood Gas Puncture Site LT RAD Blood Gas Patient Temperature 37.0 Arterial Blood pH 7.31 *L 7.37-7.43 Arterial Blood Partial Pressure CO2 43 35-45 MMHG Arterial Blood Partial Pressure O2 94 H 79-93 MMHG Arterial Blood HCO3 21 L 23-27 MMOL/L Arterial Blood Total CO2 22.4 21.0-31.0 MMOL/L Arterial Blood Oxygen Saturation 98 94-100 % Arterial Blood Base Excess -4.2 L -2.5-2.5 MMOL/L Jarad Test NA Blood Gas Ventilator Setting NO Blood Gas Inspired Oxygen 60% Micro Results Microbiology 05/26/22 Urine Culture - Final, Complete NO GROWTH 05/26/22 Blood Culture - Preliminary, Resulted No growth 05/26/22 Blood Culture - Preliminary, Resulted No growth My Orders Orders - JODI LUO MD Cbc With Automated Diff (05/26/22 06:21) Comprehensive Metabolic Panel (05/26/22 06:21) Blood Culture (05/26/22 06:21) Sputum Culture (05/26/22 06:21) Urinalysis (05/26/22 06:21) Urine Culture (05/26/22 06:21) Protime With Inr (05/26/22 06:21) Partial Thromboplastin Time (05/26/22 06:21) Chest 1 View, Ap/Pa Only (05/26/22 06:21) Ed Iv/Invasive Line Start (05/26/22 06:21) Ed Iv/Invasive Line Start (05/26/22 06:21) Vital Signs Adult Sepsis Patie Q15M (05/26/22 06:21) O2 (05/26/22 06:21) Remove Rings In Anticipation O (05/26/22 06:21) Lactic Acid Analyzer (05/26/22 06:21) Procalcitonin (Pct) (05/26/22 06:21) Ekg Tracing (05/26/22 06:21) Hs C Reactive Protein (05/26/22 06:21) Methylprednisolone Sod Succ (Solu-Medrol (05/26/22 06:30) Ondansetron Injection (Zofran Injectio (05/26/22 06:30) Ns Iv 1000 Ml (Sodium Chloride 0.9%) (05/26/22 06:30) Arterial Blood Gas (05/26/22 06:27) Manual Differential (05/26/22 06:22) Catheter(Urinary) Insert & Ass 03,15 (05/26/22 06:35) Morphine Injection (Morphine Injection (05/26/22 07:00) Arterial Blood Draw - Obtain (05/26/22 08:02) Bnp Abdiel (05/26/22 08:22) Ns Iv 1000 Ml (Sodium Chloride 0.9%) (05/26/22 08:30) Ed Admission (Communication) (05/26/22 08:28) Medications Given in ED Vital Signs/I&O 05/26/22 05/26/22 05/26/22 06:13 06:13 07:50 Pulse 134 137 Resp 28 36 B/P (MAP) 137/99 (112) Pulse Ox 93 96 O2 Delivery Simple Mask Simple Mask O2 Flow Rate 15.00 15.00 60.00 Capillary Refill : Progress Note #1: Time: 06:51 Progress Note Patient starting to feel better. Still complaining of pain - has had 6 of morphine. But respiratory distress is improving. Lungs are clearing up - RR is down to low 20's. tolerating the Bipap fairly well Progress Note #2: Time: 08:34 Progress Note is in the room. She states that he normally wears 3 L of oxygen all the time. They did bump it up to 4. She noted oxygen saturations at home this morning down in the 40s. She reports to me that he was diagnosed with COVID on May 07 and he did complete 5 days of Paxlovid. She states that he has seemingly gotten "sicker" and had more respiratory complaints since he took that medication. ECG Initial ECG Impression Date: May 26, 2022 Initial ECG Impression Time: 07:22 Initial ECG Rate: 122 Initial ECG Rhythm: S.Tach Initial ECG Intervals NH 145 QRS [address] QTC [address]-T wave changes in the inferior leads, no ST elevation or depression is noted Q wave in lead III; poor R wave progression over the pr ecordium Critical Care Note Critical Care Start Time: 06:10 Stop Time: 07:35 Total Time (minutes) 45 minutes critical care time in the evaluation and management of this 66-year-old in respiratory distress. Time includes initial evaluation and management, supplemental oxygenation, BiPAP management. Review and interpretation of labs, EKG, imaging. Review of the medical record. Medication administration discussion with patient as well as hospitalist for admission Departure Communication (Admissions) Time/Spoke to Admitting Phy: 08:[address] Mosley Time/Spoke to Consulting Phy: 08:35 eICU - Dr Casas Impression Primary Impression: Acute exacerbation of chronic obstructive pulmonary disease (COPD) Additional Impression: Acute and chronic respiratory failure with hypoxia Disposition: ADMITTED INPATIENT Condition: Critical Admissions Decision to Admit Reason: Admit from ER (General) Decision to Admit/Date: May 26, 2022 Time/Decision to Admit Time: 07:39 Departure-Patient Inst. [facility] Primary Care Physician JODI LUO MD May 26, 2022 06:29
[2022-05-26] MEDS ORDERED: NS IV 1000 ML 1,000 ML IV SCH ×2 (06:30→08:30)
[2022-05-26] MEDS ORDERED: methylPREDNISolone 125 MG (Solu-MEDROL) VIAL IVP ONE (06:30)
[2022-05-26] MEDS ORDERED: ONDANSETRON 4 MG/2 ML (SDV) Z0FRAN IVP ONE (06:30)
[2022-05-26 06:32] LABS: BASOPHILS # (AUTO) 0.1 10^3/uL (0.0-0.1); BASOPHILS % (AUTO) 1 % (0-10); EOSINOPHILS # (AUTO) 0.1 10^3/uL (0.0-0.3); EOSINOPHILS % (AUTO) 1 % (0-10); HEMATOCRIT 41 % (40-54); HEMOGLOBIN 12.7 g/dL (13.3-17.7); LYMPHOCYTES # (AUTO) 6.8 10^3/uL (1.0-4.0); LYMPHOCYTES % (AUTO) 52 % (12-44); MEAN CORPUSCULAR HEMOGLOBIN 28 pg (25-34); MEAN CORPUSCULAR HGB CONC 31 g/dL (32-36); MEAN CORPUSCULAR VOLUME 91 fL (80-99); MEAN PLATELET VOLUME 10.3 fL (9.0-12.2); MONOCYTES # (AUTO) 0.9 10^3/uL (0.0-1.0); MONOCYTES % (AUTO) 7 % (0-12); NEUTROPHILS # (AUTO) 4.8 10^3/uL (1.8-7.8); NEUTROPHILS % (AUTO) 38 % (42-75); PLATELET COUNT 314 10^3/uL (130-400); WHITE BLOOD COUNT 12.9 10^3/uL (4.3-11.0)
[2022-05-26 06:42] LABS: ALBUMIN 4.3 GM/DL (3.2-4.5); POTASSIUM 3.8 MMOL/L (3.6-5.0)
[2022-05-26 06:43] LABS: CALCIUM 9.2 MG/DL (8.5-10.1)
[2022-05-26 06:44] LABS: INR 0.9 (0.8-1.4); PROTHROMBIN TIME PATIENT 12.9 SEC (12.2-14.7); TOTAL PROTEIN 7.9 GM/DL (6.4-8.2)
[2022-05-26] MEDS ORDERED: LIDOCAINE UROJET 2% GEL 10 ML PKG TOP ONE (06:45)
[2022-05-26 06:46] LABS: BILIRUBIN,TOTAL 0.3 MG/DL (0.1-1.0)
[2022-05-26 06:47] LABS: LYMPHOCYTES % (MANUAL) 58 %; MONOCYTES % (MANUAL) 2 %; MYELOCYTES % 1 %; NEUTROPHILS % (MANUAL) 39 %; RBC MORPH NORMAL
[2022-05-26 06:48] LABS: CREATININE SERUM 1.19 MG/DL (0.60-1.30)
[2022-05-26 07:28] LABS: BILIRUBIN,URINE NEGATIVE (NEGATIVE); CLARITY,URINE CLEAR; COLOR,URINE YELLOW; GLUCOSE, URINE (UA) TRACE (NEGATIVE); KETONES,URINE NEGATIVE (NEGATIVE); LEUKOCYTE ESTERASE ,URINE NEGATIVE (NEGATIVE); NITRITE,URINE NEGATIVE (NEGATIVE); PH,URINE 6.5 (5-9); PROTEIN,URINE 2+ (NEGATIVE)
[2022-05-26 07:36] LABS: BACTERIA,URINE FEW /HPF; HYALINE CASTS, URINE 0-2 /LPF; SQUAMOUS EPITHELIAL CELL,UR 0-2 /HPF; WBC,URINE 0-2 /HPF
[2022-05-26 07:50] VITALS: BP 142/92
[2022-05-26 07:58] LABS: ABG BASE EXCESS -4.2 MMOL/L (-2.5-2.5); ABG OXYGEN SATURATION 98 % (94-100); ABG PCO2 43 MMHG (35-45); ABG PO2 94 MMHG (79-93); ABG TCO2 22.4 MMOL/L (21.0-31.0)
[2022-05-26 07:59] LABS: ABG PH 7.31 (7.37-7.43); INSPIRED O2 60%; VENTILATOR NO
--- NOTE | 2022-05-26 08:45 | Diagnostic Imaging Report ---
INDICATION: Shortness of air. Recent COVID last month. COPD. EXAMINATION: Chest 05/26/2022 COMPARISON: 02/24/2022. FINDINGS: Single view chest Heart is prominent. Pulmonary vasculature is congested. There are increased interstitial markings throughout the lungs with more focal infiltrate at the right lung base. There are no effusions. There is no pneumothorax. IMPRESSION: 1. Findings of pulmonary edema with more focal right base infiltrate noted. Dictated by: Dictated on workstation # [id number]
[2022-05-26] MEDS ORDERED: HYDROcodone/APAP 7.5 MG/325 MG (LORTAB, LORCET PLUS) TABLET PO ONE ×2 (09:13→09:15)
[2022-05-26] MEDS ORDERED: CALCIUM CARBONATE 500 MG (TUMS) TAB.CHEW PO PRN (09:15)
[2022-05-26] MEDS ORDERED: LACTULOSE SYRUP 10GM/15ML (ENULOSE) 30ML UDC PO PRN (09:15)
[2022-05-26] MEDS ORDERED: BISACODYL 10 MG SUPP (DULCOLAX) PR PRN (09:15)
[2022-05-26] MEDS ORDERED: ANTACID SUSP 30 ML UDC (MYLANTA) PO PRN (09:15)
[2022-05-26] MEDS ORDERED: NS IV 500 ML 500 ML IV PRN (09:15)
[2022-05-26] MEDS ORDERED: ONDANSETRON 4 MG (ZOFRAN) ORAL DISSOLVE TAB PO PRN (09:15)
[2022-05-26] MEDS ORDERED: polyethylene glycoL POWDER 17 GM (MIRALAX) PACK PO PRN (09:15)
[2022-05-26] MEDS ORDERED: diphenhydrAMINE 50 MG/ML INJ (BENADRYL) IVP PRN (09:15)
[2022-05-26] MEDS ORDERED: MILK OF MAGNESIA 400 MG/5 ML 30 ML UDC PO PRN (09:15)
[2022-05-26] MEDS ORDERED: ACETAMINOPHEN 325 MG TABLET PO PRN (09:15)
[2022-05-26] MEDS ORDERED: ONDANSETRON 4 MG/2 ML (SDV) Z0FRAN IV PRN (09:15)
[2022-05-26 09:37] VITALS: BP 151/100
[2022-05-26] MEDS: RT-ALBUTEROL/IPRATROPIUM 3 ML (DUONEB) VIAL INH SCH ×4 (09:37→21:51)
--- NOTE | 2022-05-26 09:39 | Tele-ICU Progress Note ---
Subjective Date Seen by a Provider: May 26, 2022 Time Seen by a Provider: 07:45 Subjective/Events-last exam This virtual visit was conducted using real time audio/video. Thank you for asking us to see this patient for respiratory insufficiency due to AECOPD. Recent events: Covid 05/07/22. PMH: COPD, RA, CHF, CAD, PAD, GERD, Dep. SH: smoking history: until 1 month ago. FH: Non-contributory ROS: as in HPI. PE: VSS. O2 sat 96% on BiPAP 12/6 60%. HEENT: No obvious masses, adenopathy or JVD. Chest: Diminished w wheezes. CV: RRR S1 S2 No murmur or added sounds. Abd: Non-tender. Bowel sounds Y. : Unremarkable. Vanessa N. ALINING INSPECTOR/psychiatric: Grossly intact. No obvious focal findings. Extremities: No edema. Capillary refill < 3 seconds. Skin: unremarkable. Results: Elevated WCC 12.9, BUN 22, Lact. 2.9, BNP 454.9, BG 269 AB.31/43/94 on 60%. CXR hyperinflated. Vitals / labs / images reviewed. Video assessment done using teleICU camera, rest of exam as per RN. A/P: Respiratory insufficiency: Continue present management with BiPAP, medrol. Duonebs added. Monitor for increasing oxygenation needs and/or need for intubation. Discussed with RN Tammy and ER MD Dr. Camejo . Asked RN to reach out to eICU if any questions or concerns later. Time spent with patient/coordination of care with other health professionals (mins): 30 Sepsis Event Evaluation Height, Weight, BMI Height: '" Weight: lbs. oz. kg; 30.04 BMI Method: Focused Exam Lactate Level 05/26/22 06:22: Lactic Acid Level 2.90*H 05/26/22 08:20: Lactic Acid Level 2.43*H Lactic Acid Level Laboratory Tests Test 05/26/22 06:22 05/26/22 08:20 Lactic Acid Level 2.90 MMOL/L (0.50-2.00) *H 2.43 MMOL/L (0.50-2.00) *H Exam Exam Patient acknowledged, consented, and participated in this virtual visit which was conducted using real time audio/video Vital Signs Date Time Temp Pulse Resp B/P (MAP) Pulse Ox O2 Delivery O2 Flow Rate FiO2 05/26/22 07:50 137 36 96 60.00 05/26/22 06:13 Simple Mask 15.00 05/26/22 06:13 134 28 137/99 (112) 93 Simple Mask 15.00 Height & Weight Height: '" Weight: lbs. oz. kg; 30.04 BMI Method: General Appearance: Mild Distress, Obese Capillary Refill: Less Than 3 Seconds Peripheral Pulses: 2+ Dorsalis Pedis (R), 2+ Left Dors-Pedis (L) (See free text.) Gastrointestinal: normal bowel sounds, soft Results Lab Laboratory Tests 05/26/22 06:22 Assessment/Plan Assessment/Plan See free text. Critical Care: Critically Ill Patient MARGARITA PETTY MD May 26, 2022 09:38
[2022-05-26] MEDS: NICOTINE 21 MG (NICODERM) PATCH TD SCH (09:47)
[2022-05-26] MEDS: ENOXAPARIN 40 MG/0.4 ML (LOVENOX) SYR SC SCH (09:47)
[2022-05-26] MEDS: morphine INJ 4 MG/ML 1 ML (VIAL/SYRINGE) IV PRN ×3 (09:48→20:00)
[2022-05-26] MEDS: SENNOSIDES 8.6 MG (SENOKOT) TAB PO SCH ×2 (09:50→20:00)
--- NOTE | 2022-05-26 10:58 | Consultation-Cardiology ---
HPI-Cardiology Cardiology Consultation: Date of Consultation 05/26/22 Date of Admission 05/26/22 Attending Physician [facility] Admitting Physician Admitting Physician: Sherri Mosley DO Attending Physician: Sherri Mosley DO Consulting Physician CAROL LEWIS JR, MD HPI: Time Seen by a Provider: 10:53 Chief Complaint: REASON FOR CONSULTATION: Atrial fibrillation and heart failure. I had the pleasure of seeing Audie in the intensive care unit at [facility] in [place], [place] today. He is known to me from a previous hospitalization. He has a history of paroxysmal atrial fibrillation and chronic heart failure with preserved ejection fraction. He had COVID about 3 weeks ago and received the oral medication for this. He states that his symptoms had improved. However, then over about the past week he has sent a cough and increasing shortness of breath. He saw his jet engine mechanic earlier this week and was started on steroids and an antibiotic. However, his cough and shortness of breath persisted. Yesterday he slept much of the day and then stayed up until about 4:00 this morning when he went to sleep. Around 430 this morning he woke up severely short of breath and had his called 911 and he was brought to the emergency room. He denies any fever or chills. He quit smoking several months ago when he was in the hospital with similar problems. He denies any chest discomfort. He does get some occasional paroxysmal nocturnal dyspnea but not like he experienced this morning. He normally sleeps on his sofa with 3 pillows. He does get some intermittent palpitations with the sensation of fluttering in his chest. He has had some intermittent lightheaded spells but denies any syncope. He has mild, chronic intermittent lower extremity edema. Because of his cardiac history, a cardiology consultation was requested. Certain portions of this document may have been dictated utilizing voice recognition technology. Inherent to this technology, typographical and grammatical errors may exist. As much as I am diligent to identify and correct these mistakes, some errors may remain in the document. Review of Systems-Cardiology Review of Systems Other comments Review of 10 organ systems is as per the history of present illness, otherwise negative. All Other Systems Reviewed Negative Unless Noted: Yes BEB-[id number]-[id number] Hx Patient Social History Marrital Status: Smoking Status: Former Smoker Immunizations Up To Date Date of Influenza Vaccine: Jul 26, 2021 Past Medical History PMH As described under Assessment. Family Medical History Family Medical History: He does not report a family history of premature coronary artery disease. Allergies and Home Medications Allergies Coded Allergies: No Known Drug Allergies (Unverified , 11/26/21) Patient Home Medication List Home Medication List Reviewed: Yes Amiodarone HCl (Amiodarone HCl) 200 Mg Tablet, 200 MG PO BID Prescribed by: SHERRI MOSLEY on 03/06/22 1058 Atorvastatin Calcium (Atorvastatin Calcium) 20 Mg Tablet, 20 MG PO DAILY, (Reported) Entered as Reported by: GENIA CODY on 11/26/21 1307 Diltiazem HCl (Diltiazem ER) 120 Mg Capsule.er, 120 MG PO DAILY, (Reported) Entered as Reported by: ADDIS ZAPATA on 02/13/22 1507 Ferrous Sulfate (Ferrous Sulfate) 325 Mg (65 Mg Iron) Tablet, 325 MG PO Q48H, (Reported) Entered as Reported by: ADDIS ZAPATA on 02/13/22 1507 Furosemide (Furosemide) 40 Mg Tablet, 40 MG PO DAILY, (Reported) Entered as Reported by: GENIA CODY on 11/26/21 1307 Guaifenesin (Mucinex) 1,200 Mg Tab.er.12h, 1,200 MG PO BID, (Reported) Entered as Reported by: GENIA CODY on 11/26/21 1307 Hydrocodone/Acetaminophen (Hydrocodone-Acetamin 7.5-325) 7.5 Mg-325 Mg Tablet, 1 EA PO Q8H PRN for PAIN-MODERATE (5-7) Prescribed by: SHERRI MOSLEY on 03/06/22 1059 Ipratropium/Albuterol Sulfate (Iprat-Albut 0.5-3(2.5) mg/3 ml) 3 Ml Ampul.neb, 3 ML IH QID PRN for SHORTNESS OF BREATH, (Reported) Entered as Reported by: GENIA CODY on 11/26/21 1307 Magnesium Oxide (Magnesium Oxide) 400 Mg Tablet, 400 MG PO HS, (Reported) Entered as Reported by: ADDIS ZAPATA on 02/13/22 1507 Multivitamin (Multivitamin) 1 Each Tablet, 1 EACH PO DAILY, (Reported) Entered as Reported by: ADDIS ZAPATA on 02/13/22 1507 Pantoprazole Sodium (Pantoprazole Sodium) 40 Mg Tablet.dr, 40 MG PO HS, (Reported) Entered as Reported by: GENIA Torire ESCOBAR on 11/26/21 1307 Potassium Chloride (Potassium Chloride) 20 Meq Tab.er.prt, 20 MEQ PO DAILY, (Reported) Entered as Reported by: ADDIS ZAPATA on 02/13/22 1507 Exam Vital Signs Vital Signs Date Time Temp Pulse Resp B/P (MAP) Pulse Ox O2 Delivery O2 Flow Rate FiO2 05/26/22 10:00 105 18 120/100 100 NIV Bilevel 50.00 Physical Exam General: Alert. Breathing comfortably on BiPAP and able to answer questions. Well nourished and appears stated age. Eye: Extraocular movements are intact. Conjunctivae are clear. There are no xa nthelasma. HENT: Normocephalic. Atraumatic. Carotid pulsations 2/2 without bruits. Neck: Jugular venous pressure does not appear elevated. No thyromegaly appreciated. Respiratory: Lungs have scattered wheezes and some upper airway sounds from the BiPAP. Respirations are non-labored on BiPAP. Breath sounds are equal. Symmetrical chest wall expansion. Cardiovascular: Tachycardia. Regular rhythm. Distant S1/S2. No murmur. No gallop. Point of maximal impulse is not appear displaced. Good pulses equal in all extremities. No edema. Gastrointestinal: Soft. Normal bowel sounds. Skin: Skin turgor is normal. There is no pallor. Musculoskeletal: No kyphosis or scoliosis appreciated. Neurologic: Alert and oriented to person, place, time. Cranial nerves 3-12 appear grossly intact. The patient has good motor tone strength in the upper and lower extremities bilaterally. Psychiatric: Cooperative. Appropriate mood & affect. Labs Laboratory Tests Test 05/26/22 06:22 05/26/22 07:23 05/26/22 07:30 05/26/22 08:20 Range/Units White Blood Count 12.9 H 4.3-11.0 10^3/uL Red Blood Count 4.50 4.30-5.52 10^6/uL Hemoglobin 12.7 L 13.3-17.7 g/dL Hematocrit 41 40-54 % Mean Corpuscular Volume 91 80-99 fL Mean Corpuscular Hemoglobin 28 25-34 pg Mean Corpuscular Hemoglobin Concent 31 L 32-36 g/dL Red Cell Distribution Width 15.9 H 10.0-14.5 % Platelet Count 314 130-400 10^3/uL Mean Platelet Volume 10.3 9.0-12.2 fL Immature Granulocyte % (Auto) 2 % Neutrophils (%) (Auto) 38 L 42-75 % Lymphocytes (%) (Auto) 52 H 12-44 % Monocytes (%) (Auto) 7 0-12 % Eosinophils (%) (Auto) 1 0-10 % Basophils (%) (Auto) 1 0-10 % Neutrophils # (Auto) 4.8 1.8-7.8 10^3/uL Lymphocytes # (Auto) 6.8 H 1.0-4.0 10^3/uL Monocytes # (Auto) 0.9 0.0-1.0 10^3/uL Eosinophils # (Auto) 0.1 0.0-0.3 10^3/uL Basophils # (Auto) 0.1 0.0-0.1 10^3/uL Immature Granulocyte # (Auto) 0.3 H 0.0-0.1 10^3/uL Neutrophils % (Manual) 39 % Lymphocytes % (Manual) 58 % Monocytes % (Manual) 2 % Myelocytes % 1 % Blood Morphology Comment NORMAL Prothrombin Time 12.9 12.2-14.7 SEC INR Comment 0.9 0.8-1.4 Activated Partial Thromboplast Time 28 24-35 SEC Sodium Level 142 135-145 MMOL/L Potassium Level 3.8 3.6-5.0 MMOL/L Chloride Level 105 98-107 MMOL/L Carbon Dioxide Level 20 L 21-32 MMOL/L Anion Gap 17 H 5-14 MMOL/L Blood Urea Nitrogen 22 H 7-18 MG/DL Creatinine 1.19 0.60-1.30 MG/DL Estimat Glomerular Filtration Rate 67 BUN/Creatinine Ratio 18 Glucose Level 269 H 70-105 MG/DL Lactic Acid Level 2.90 *H 2.43 *H 0.50-2.00 MMOL/L Calcium Level 9.2 8.5-10.1 MG/DL Corrected Calcium 9.0 8.5-10.1 MG/DL Total Bilirubin 0.3 0.1-1.0 MG/DL Aspartate Amino Transf (AST/SGOT) 89 H 5-34 U/L Alanine Aminotransferase (ALT/SGPT) 54 0-55 U/L Alkaline Phosphatase 118 40-136 U/L C-Reactive Protein High Sensitivity 0.12 0.00-0.50 MG/DL B-Type Natriuretic Peptide 454.9 H <100.0 PG/ML Total Protein 7.9 6.4-8.2 GM/DL Albumin 4.3 3.2-4.5 GM/DL Procalcitonin 0.05 <0.10 NG/ML Urine Color YELLOW Urine Clarity CLEAR Urine pH 6.5 5-9 Urine Specific [place] 1.020 1.016-1.022 Urine Protein 2+ H NEGATIVE Urine Glucose (UA) TRACE H NEGATIVE Urine Ketones NEGATIVE NEGATIVE Urine Nitrite NEGATIVE NEGATIVE Urine Bilirubin NEGATIVE NEGATIVE Urine Urobilinogen 0.2 < = 1.0 MG/DL Urine Leukocyte Esterase NEGATIVE NEGATIVE Urine RBC (Auto) NEGATIVE NEGATIVE Urine RBC NONE /HPF Urine WBC 0-2 /HPF Urine Squamous Epithelial Cells 0-2 /HPF Urine Crystals NONE /LPF Urine Bacteria FEW H /HPF Urine Casts PRESENT /LPF Urine Hyaline Casts 0-2 H /LPF Urine Mucus NEGATIVE /LPF Urine Culture Indicated CULTURE PENDING Blood Gas Puncture Site LT RAD Blood Gas Patient Temperature 37.0 Arterial Blood pH 7.31 *L 7.37-7.43 Arterial Blood Partial Pressure CO2 43 35-45 MMHG Arterial Blood Partial Pressure O2 94 H 79-93 MMHG Arterial Blood HCO3 21 L 23-27 MMOL/L Arterial Blood Total CO2 22.4 21.0-31.0 MMOL/L Arterial Blood Oxygen Saturation 98 94-100 % Arterial Blood Base Excess -4.2 L -2.5-2.5 MMOL/L Jarad Test NA Blood Gas Ventilator Setting NO Blood Gas Inspired Oxygen 60% Test 05/26/22 10:31 Range/Units Lactic Acid Level 1.94 0.50-2.00 MMOL/L ECG Impression ECG Comment Electrocardiogram from the emergency room this morning shows sinus tachycardia 122 bpm with possible old anterior wall myocardial infarction. Diagnosis/Problems Diagnosis/Problems (1) Acute on chronic heart failure with preserved ejection fraction (HFpEF) Status: Acute Assessment & Plan: His BNP is slightly elevated and chest x-ray is consistent with some pulmonary edema. His echocardiogram from January 2022 showed a normal ejection fraction. I will start him on intravenous furosemide. (2) Paroxysmal atrial fibrillation Status: Chronic Assessment & Plan: He remains in sinus rhythm on amiodarone. I was planning to taper this as an outpatient but he was missing his appointments due to medical issues with his as well as his COVID. I will decrease the amiodarone to 200 mg once daily. I do not have him on oral anticoagulation because I felt the previous atrial fibrillation was brought on by pneumonia during a hospitalization earlier this year. (3) Ventricular tachycardia Assessment & Plan: He also had some possible ventricular tachycardia during his previous hospitalization earlier this year. There has been no evidence of recurrence. At some point I was planning on an outpatient ischemic evaluation but he was missing his appointments as outlined above. (4) Pulmonary hypertension Status: Chronic Assessment & Plan: His echocardiogram from earlier this year showed severe pulmonary hypertension. This is most likely due to his underlying chronic obstructive pulmonary disease. This will need to be followed longitudinally. He may benefit from home oxygen if he does not already have this in place. (5) Primary hypertension Status: Chronic Assessment & Plan: Continue diltiazem which she has been taking for hypertension and the previous atrial fibrillation. (6) Mixed hyperlipidemia Status: Chronic Assessment & Plan: Continue atorvastatin. (7) Acute and chronic respiratory failure with hypoxia Status: Acute Assessment & Plan: Most likely due to an exacerbation of his chronic obstructive pulmonary disease as well as some superimposed heart failure. CAROL LEWIS JR, MD May 26, 2022 10:58
[2022-05-26] MEDS ORDERED: dilTIAZem120 MG (CARDIZEM CD) CAP PO ONE (11:00)
[2022-05-26] MEDS ORDERED: FUROSEMIDE 40 MG/4 ML INJ (LASIX) IVP ONE (11:00)
[2022-05-26] MEDS: methylPREDNISolone 40 MG/ML (Solu-MEDROL) VIAL IV SCH ×3 (11:04→23:00)
[2022-05-26] MEDS: AMIODARONE 200 MG (CORDARONE) TAB PO SCH (11:09)
--- NOTE | 2022-05-26 11:34 | History & Physical-Hospitalist ---
History of Present Illness HPI/Chief Complaint CC: AECOPD with acute on chronic respiratory failure HPI: This is a 66yoWM known to me from prior respiratory failure s/p long ventilator course before extubated and ultimately DC home 1 week later who apparently started smoking when he arrived home after last critical illness admit who quit smoking 4 weeks ago after he had COVID received Paxlovid but he saw the Warehouse Team Member who placed him on Levaquin and Prednisone but his dyspnea worsened and he arrived in resp failure requiring biPAP. He has severe COPD and will be at high risk for re-intubation. Dr Pugh consulted. Source: patient Exam Limitations: no limitations Date Seen 05/26/22 Time Seen by a Provider: 11:00 Attending Physician [facility] Admitting Physician: Sherri Arnold DO Attending Physician: Sherri Arnold DO Referring Physician Date of Admission May 26, 2022 at 08:36 Home Medications & Allergies Home Medications Reviewed patient Home Medication Reconciliation performed by pharmacy medication reconciliations two way radio technician and/or nursing. Patients Allergies have been reviewed. Allergies Allergies Coded Allergies No Known Drug Allergies (Unverified11/26/21) Past Zlgotvw-Japzvb-Amktkl Hx Patient Social History Marrital Status: Tobacco Use?: Yes Smoking Status: Former Smoker Immunizations Up To Date Date of Influenza Vaccine: Jul 26, 2021 First/Initial COVID19 Vaccinat: APRIL 2021 Second COVID19 Vaccination [place]: MAY 2021 Tetanus Booster (TDap): Unknown Hepatitis A: No Hepatitis B: No Seasonal Allergies Seasonal Allergies: No Current Status Primary Language: Zambian Preferred Spoken Language: Zambian Past Medical History COPD, Emphysema Currently Using CPAP: No Currently Using BIPAP: No Coronary Artery Disease, Heart Attack, High Cholesterol, Hypertension, Peripheral Vascular Prostate Problems Gastroesophageal Reflux Arthritis, Rheumatoid Arthritis Prostate Depression COPD with baseline oxygen need 4L HTN HLD Iron Def anemia Review of Systems Constitutional: see HPI, malaise, weakness EENTM: no symptoms reported Respiratory: dyspnea on exertion, short of breath Cardiovascular: no symptoms reported Gastrointestinal: no symptoms reported Genitourinary: no symptoms reported Musculoskeletal: back pain, joint pain Skin: no symptoms reported Psychiatric/Neurological: No Symptoms Reported All Other Systems Reviewed Negative Unless Noted: Yes Physical Exam Physical Exam Vital Signs Vital Signs - First Documented 05/26/22 05/26/22 09:35 12:00 Temp 36.6 FiO2 50 Capillary Refill : Less Than 3 Seconds Height, Weight, BMI Height: '" Weight: lbs. oz. kg; 30.04 BMI Method: General Appearance: No Apparent Distress, Chronically ill Eyes: Right Eye Normal Inspection, Right Eye PERRL HEENT: PERRL/EOMI, Normal ENT Inspection, Pharynx Normal, Moist Mucous Membranes Neck: Full Range of Motion, Normal Inspection, Non Tender Respiratory: Chest Non Tender, Lungs Clear, Normal Breath Sounds, No Accessory Muscle Use, No Respiratory Distress, Decreased Breath Sounds Cardiovascular: Regular Rate, Rhythm, No Edema, No Gallop, No JVD, No Murmur, Normal Peripheral Pulses Gastrointestinal: Normal Bowel Sounds, No Organomegaly, No Pulsatile Mass, Non Tender, Soft Back: Normal Inspection, No CVA Tenderness, No Vertebral Tenderness Extremity: Normal Capillary Refill, Normal Inspection, Normal Range of Motion, Non Tender, No Calf Tenderness, No Pedal Edema Neurologic/Psychiatric: Alert, Oriented x3, No Motor/Sensory Deficits, Normal Mood/Affect Skin: Normal Color, Warm/Dry Lymphatic: No Adenopathy Results Results/Procedures Labs Laboratory Tests 05/26/22 06:22 05/27/22 04:29 Patient resulted labs reviewed. Assessment/Plan Admission Diagnosis Assessment: Acute on chronic respiratory failure requiring biPAP Severe COPD Heavy smoking history quit 4 weeks ago HTN AF HLP RA Chronic pain Plan: BiPAP O2 Steroids Pain control Admission Status: Inpatient Order (span 2 midnights) Reason for Inpatient Admission: resp failure Diagnosis/Problems Diagnosis/Problems (1) Acute exacerbation of chronic obstructive pulmonary disease (COPD) Status: Acute (2) Paroxysmal atrial fibrillation Status: Chronic (3) Pulmonary hypertension Status: Chronic (4) Mixed hyperlipidemia Status: Chronic (5) Primary hypertension Status: Chronic (6) Chronic heart failure with preserved ejection fraction (HFpEF) SHERRI ARNOLD DO May 26, 2022 11:34
[2022-05-26] MEDS ORDERED: HYDR-3820 PO (13:09)
[2022-05-26] MEDS ORDERED: HYDROmorphone 2 MG/ML VIAL (DILAUDID) IV PRN (15:00)
[2022-05-26] MEDS ORDERED: SALINE NASAL SPRAY (OCEAN) 45 ML BTL PRN (20:00)
[2022-05-26] MEDS: DOCUSATE SODIUM 100 MG (COLACE) CAP PO SCH (20:00)
[2022-05-27] MEDS: RT-ALBUTEROL/IPRATROPIUM 3 ML (DUONEB) VIAL INH SCH ×6 (02:29→21:20)
[2022-05-27] MEDS: ALPRAZolam 0.25 MG (XANAX) TAB PO PRN ×2 (02:59→20:03)
[2022-05-27] MEDS: morphine INJ 4 MG/ML 1 ML (VIAL/SYRINGE) IV PRN ×6 (03:59→20:03)
[2022-05-27 04:49] LABS: BASOPHILS % (AUTO) 0 % (0-10); EOSINOPHILS % (AUTO) 0 % (0-10); HEMATOCRIT 35 % (40-54); HEMOGLOBIN 11.2 g/dL (13.3-17.7); LYMPHOCYTES # (AUTO) 0.7 10^3/uL (1.0-4.0); LYMPHOCYTES % (AUTO) 13 % (12-44); MEAN CORPUSCULAR HEMOGLOBIN 28 pg (25-34); MEAN CORPUSCULAR HGB CONC 32 g/dL (32-36); MEAN CORPUSCULAR VOLUME 88 fL (80-99); MEAN PLATELET VOLUME 10.5 fL (9.0-12.2); MONOCYTES # (AUTO) 0.2 10^3/uL (0.0-1.0); MONOCYTES % (AUTO) 3 % (0-12); NEUTROPHILS # (AUTO) 4.5 10^3/uL (1.8-7.8); NEUTROPHILS % (AUTO) 83 % (42-75); PLATELET COUNT 212 10^3/uL (130-400); WHITE BLOOD COUNT 5.4 10^3/uL (4.3-11.0)
[2022-05-27 04:59] LABS: ALBUMIN 4.1 GM/DL (3.2-4.5)
[2022-05-27 05:00] LABS: POTASSIUM 3.6 MMOL/L (3.6-5.0)
[2022-05-27 05:01] LABS: CALCIUM 9.1 MG/DL (8.5-10.1)
[2022-05-27 05:02] LABS: TOTAL PROTEIN 7.3 GM/DL (6.4-8.2)
[2022-05-27] MEDS: POTASSIUM CL 10MEQ/50ML IVPB 50 ML IV SCH (05:02)
[2022-05-27] MEDS: MAGNESIUM 1 GM/100 ML IVPB 100 ML IV SCH ×4 (05:02→08:03)
[2022-05-27] MEDS: KCL 20 MEQ TAB (K-DUR) PO SCH (05:03)
[2022-05-27 05:04] LABS: BILIRUBIN,TOTAL 0.3 MG/DL (0.1-1.0)
[2022-05-27 05:05] LABS: PHOSPHORUS 3.6 MG/DL (2.3-4.7)
[2022-05-27 05:06] LABS: CREATININE SERUM 1.18 MG/DL (0.60-1.30)
[2022-05-27] MEDS: methylPREDNISolone 40 MG/ML (Solu-MEDROL) VIAL IV SCH ×2 (05:07→20:03)
[2022-05-27 05:09] LABS: MAGNESIUM 1.3 MG/DL (1.6-2.4)
[2022-05-27] MEDS ORDERED: KCL 20 MEQ TAB (K-DUR) PO ONE (05:15)
--- NOTE | 2022-05-27 07:36 | Diagnostic Imaging Report ---
EXAMINATION: Chest 1 view HISTORY: Dyspnea COMPARISON: 05/26/2022 FINDINGS: Heart size and pulmonary vasculature are normal. There are patchy interstitial opacities within the right mid and bilateral lower lungs, similar to prior exam. No pleural effusion or pneumothorax. The osseous structures are intact. IMPRESSION: 1. Stable interstitial opacities in the lungs compared 05/26/2022. Dictated by: Dictated on workstation # [id number]
[2022-05-27] MEDS: AMIODARONE 200 MG (CORDARONE) TAB PO SCH (07:56)
[2022-05-27] MEDS: dilTIAZem120 MG (CARDIZEM CD) CAP PO SCH (07:57)
[2022-05-27] MEDS: DOCUSATE SODIUM 100 MG (COLACE) CAP PO SCH ×2 (07:57→20:03)
[2022-05-27] MEDS: SENNOSIDES 8.6 MG (SENOKOT) TAB PO SCH ×2 (07:58→20:03)
[2022-05-27] MEDS: NICOTINE 21 MG (NICODERM) PATCH TD SCH (08:00)
[2022-05-27] MEDS: ENOXAPARIN 40 MG/0.4 ML (LOVENOX) SYR SC SCH (08:00)
--- NOTE | 2022-05-27 08:37 | Tele-ICU Progress Note ---
Subjective Date Seen by a Provider: May 27, 2022 Time Seen by a Provider: 08:32 Subjective/Events-last exam 66 yo M with COPD, now on 4 lpm NC, SpO2 97%, not in resp distress CBC BMP ok I reviewed CXR from today, shows mild hyperinflation and ? infiltrate near RLL heart border On cardizem, Medrol Sepsis Event Evaluation Height, Weight, BMI Height: '" Weight: lbs. oz. kg; 32.47 BMI Method: Focused Exam Lactate Level 05/26/22 06:22: Lactic Acid Level 2.90*H 05/26/22 08:20: Lactic Acid Level 2.43*H 05/26/22 10:31: Lactic Acid Level 1.94 Exam Exam Patient acknowledged, consented, and participated in this virtual visit which was conducted using real time audio/video Vital Signs Date Time Temp Pulse Resp B/P (MAP) Pulse Ox O2 Delivery O2 Flow Rate FiO2 05/27/22 08:00 103 12 139/84 99 High Flow N/C 4.00 05/27/22 08:00 97 High Flow N/C 4.00 05/27/22 07:40 High Flow N/C 4.00 05/27/22 07:26 95 05/27/22 07:00 111 27 146/88 96 High Flow N/C 4.00 05/27/22 07:00 36.4 High Flow N/C 4.00 05/27/22 06:50 97 High Flow N/C 4.00 05/27/22 06:00 99 15 115/76 98 High Flow N/C 5.00 05/27/22 05:00 105 21 129/114 95 High Flow N/C 5.00 05/27/22 04:06 126 29 168/93 92 High Flow N/C 5.00 05/27/22 04:00 96 High Flow N/C 5.00 05/27/22 04:00 36.5 120 22 168/93 96 High Flow N/C 5.00 05/27/22 04:00 109 28 153/101 100 High Flow N/C 5.00 05/27/22 03:04 118 22 162/102 100 NIV Bilevel 50.00 05/27/22 03:01 NIV Bilevel 50.00 05/27/22 03:00 129 23 130/117 92 High Flow N/C 5.00 05/27/22 02:57 High Flow N/C 5.00 05/27/22 02:30 96 High Flow N/C 5.00 05/27/22 02:00 97 13 123/71 95 High Flow N/C 3.00 05/27/22 01:00 97 22 127/80 98 High Flow N/C 3.00 05/27/22 01:00 97 05/27/22 00:00 99 16 119/75 98 High Flow N/C 3.00 05/26/22 23:00 106 24 150/88 98 High Flow N/C 3.00 05/26/22 23:00 99 High Flow N/C 3.00 05/26/22 22:55 36.3 High Flow N/C 3.00 05/26/22 22:00 102 11 132/87 100 High Flow N/C 5.00 05/26/22 21:52 99 High Flow N/C 5.00 05/26/22 21:00 101 23 134/107 99 High Flow N/C 5.00 05/26/22 20:00 99 18 121/79 99 High Flow N/C 5.00 05/26/22 19:30 98 High Flow N/C 5.00 05/26/22 19:00 36.5 105 28 136/82 98 High Flow N/C 5.00 05/26/22 19:00 112 05/26/22 18:43 100 High Flow N/C 5.00 05/26/22 18:00 102 15 123/89 98 NIV Bilevel 50.00 05/26/22 17:00 109 19 124/79 98 NIV Bilevel 50.00 05/26/22 16:15 98 High Flow N/C 6.00 05/26/22 16:09 37.0 05/26/22 16:00 103 18 105/76 97 NIV Bilevel 50.00 05/26/22 15:00 101 20 109/69 98 NIV Bilevel 50.00 05/26/22 14:52 95 High Flow N/C 5.00 05/26/22 14:00 103 20 105/70 99 NIV Bilevel 50.00 05/26/22 13:00 102 24 100/69 97 NIV Bilevel 50.00 05/26/22 12:41 114 05/26/22 12:15 97 High Flow N/C 6.00 05/26/22 12:00 113 15 120/96 94 NIV Bilevel 50.00 05/26/22 12:00 36.6 05/26/22 11:00 105 13 132/85 100 NIV Bilevel 50.00 05/26/22 10:00 105 18 120/100 100 NIV Bilevel 50.00 05/26/22 09:46 112 05/26/22 09:37 104 31 100 50.00 05/26/22 09:35 99 NIV Bilevel 50 05/26/22 09:30 100 16 119/86 94 NIV Bilevel I & O 05/27/22 07:00 Intake Total 3325 ml Output Total 3800 ml Balance -475 ml Height & Weight Height: '" Weight: lbs. oz. kg; 32.47 BMI Method: General Appearance: No Apparent Distress, Chronically ill HEENT: PERRL/EOMI, Normal ENT Inspection, Pharynx Normal, Moist Mucous Membranes Neck: Full Range of Motion, Normal Inspection, Non Tender Respiratory: Chest Non Tender, Lungs Clear, Normal Breath Sounds, No Accessory Muscle Use, No Respiratory Distress, Decreased Breath Sounds, Rhonci, Wheezing Cardiovascular: Regular Rate, Rhythm, No Edema, No Gallop, No JVD, No Murmur, Normal Peripheral Pulses Capillary Refill: Less Than 3 Seconds Peripheral Pulses: 2+ Dorsalis Pedis (R), 2+ Left Dors-Pedis (L) (See free text.) Gastrointestinal: normal bowel sounds, soft Extremity: Normal Capillary Refill, Normal Inspection, Normal Range of Motion, Non Tender, No Calf Tenderness, No Pedal Edema Neurologic/Psychiatric: Alert, Oriented x3, No Motor/Sensory Deficits, Normal Mood/Affect Skin: Normal Color, Warm/Dry Lymphatic: No Adenopathy Results Lab Laboratory Tests 05/26/22 06:22 05/27/22 04:29 Assessment/Plan Assessment/Plan COPD, will continue present meds, can place change roof bolter to po prednisone and will taper Looks stable enough to go to floor Critical Care: Critically Ill Patient Time spent with patient (mins): 30 GIDEON GILMORE MD May 27, 2022 08:37
[2022-05-27] MEDS ORDERED: predniSONE 10 MG TAB PO SCH (09:35)
--- NOTE | 2022-05-27 09:50 | Cardiology Progress Note ---
Progress Note-Cardiology Events since last exam Date Seen by Provider: May 27, 2022 Time Seen by Provider: 09:49 Events since last exam I am following him due to atrial fibrillation and heart failure. He remains in the ICU. He had a breathing treatment early this morning and a short while later he started coughing and became more short of breath. He called his nurse and he was put on BiPAP. He is now off the BiPAP. He came off to eat breakfast and remains off the BiPAP. He denies chest pain, palpitations or syncope. He has minimal ankle edema. Certain portions of this document may have been dictated utilizing voice recognition technology. Inherent to this technology, typographical and grammatical errors may exist. As much as I am diligent to identify and correct these mistakes, some errors may remain in the document. Vitals Last set of Vitals Signs Vital Signs 05/26/22 05/27/22 05/27/22 09:35 14:00 14:55 Pulse 103 Resp 12 B/P (MAP) 124/85 Pulse Ox 97 O2 Delivery High Flow N/C O2 Flow Rate 4.00 FiO2 50 Labs Labs Laboratory Tests 05/27/22 04:29 Exam Vital Signs Vital Signs Date Time Temp Pulse Resp B/P (MAP) Pulse Ox O2 Delivery O2 Flow Rate FiO2 05/27/22 14:55 97 High Flow N/C 4.00 05/27/22 14:00 103 12 124/85 05/27/22 12:00 35.6 05/26/22 09:35 50 Physical Exam General: Alert. Mild respiratory distress on nasal cannula oxygen. Eye: No xanthelasma. HENT: Normocephalic. Neck: Jugular venous pressure does not appear elevated. Respiratory: Lungs are clear to auscultation but decreased throughout. Respirations are non-labored. Breath sounds are equal. Symmetrical chest wall expansion. Cardiovascular: Normal rate. Regular rhythm. Distant S1/S2. No murmur. No gallop. Trace bilateral pretibial edema. Gastrointestinal: Soft. Normal bowel sounds. Skin: Warm. Dry. Neurologic: Alert and oriented to person, place, time. Cranial nerves 3-11 grossly intact. Psychiatric: Cooperative. Appropriate mood & affect. Labs Laboratory Tests Test 05/27/22 04:29 05/27/22 05:13 Range/Units White Blood Count 5.4 4.3-11.0 10^3/uL Red Blood Count 3.96 L 4.30-5.52 10^6/uL Hemoglobin 11.2 L 13.3-17.7 g/dL Hematocrit 35 L 40-54 % Mean Corpuscular Volume 88 80-99 fL Mean Corpuscular Hemoglobin 28 25-34 pg Mean Corpuscular Hemoglobin Concent 32 32-36 g/dL Red Cell Distribution Width 16.0 H 10.0-14.5 % Platelet Count 212 130-400 10^3/uL Mean Platelet Volume 10.5 9.0-12.2 fL Immature Granulocyte % (Auto) 1 % Neutrophils (%) (Auto) 83 H 42-75 % Lymphocytes (%) (Auto) 13 12-44 % Monocytes (%) (Auto) 3 0-12 % Eosinophils (%) (Auto) 0 0-10 % Basophils (%) (Auto) 0 0-10 % Neutrophils # (Auto) 4.5 1.8-7.8 10^3/uL Lymphocytes # (Auto) 0.7 L 1.0-4.0 10^3/uL Monocytes # (Auto) 0.2 0.0-1.0 10^3/uL Eosinophils # (Auto) 0.0 0.0-0.3 10^3/uL Basophils # (Auto) 0.0 0.0-0.1 10^3/uL Immature Granulocyte # (Auto) 0.1 0.0-0.1 10^3/uL Sodium Level 141 135-145 MMOL/L Potassium Level 3.6 3.6-5.0 MMOL/L Chloride Level 103 98-107 MMOL/L Carbon Dioxide Level 20 L 21-32 MMOL/L Anion Gap 18 H 5-14 MMOL/L Blood Urea Nitrogen 30 H 7-18 MG/DL Creatinine 1.18 0.60-1.30 MG/DL Estimat Glomerular Filtration Rate 68 BUN/Creatinine Ratio 25 Glucose Level 174 H 70-105 MG/DL Calcium Level 9.1 8.5-10.1 MG/DL Corrected Calcium 9.0 8.5-10.1 MG/DL Phosphorus Level 3.6 2.3-4.7 MG/DL Magnesium Level 1.3 L 1.6-2.4 MG/DL Total Bilirubin 0.3 0.1-1.0 MG/DL Aspartate Amino Transf (AST/SGOT) 40 H 5-34 U/L Alanine Aminotransferase (ALT/SGPT) 48 0-55 U/L Alkaline Phosphatase 84 40-136 U/L Total Protein 7.3 6.4-8.2 GM/DL Albumin 4.1 3.2-4.5 GM/DL Bedside Blood Gas pH (LAB) 7.405 7.310-7.410 Bedside Blood Gas pCO2 (LAB) 38.3 L 41.0-51.0 mmHg Bedside Blood Gas pO2 (LAB) 40 L 80-105 mmHg Bedside Blood Gas HCO3 (LAB) 24.0 23.0-28.0 mmol/L POC Blood Gas Total CO2 Calc 25 24-29 mmol/L Bedside Bl Gas O2 Saturation (Calc) 75 L 95-98 % Bedside Arterial Blood Base Excess -1 -2-3 mmol/L Diagnosis/Problems Diagnosis/Problems (1) Acute on chronic heart failure with preserved ejection fraction (HFpEF) Status: Acute Assessment & Plan: His BNP is slightly elevated and chest x-ray is consistent with some pulmonary edema. His echocardiogram from January 2022 showed a normal ejection fraction. I started him on intravenous furosemide. (2) Paroxysmal atrial fibrillation Status: Chronic Assessment & Plan: He remains in sinus rhythm on amiodarone. I was planning to taper this as an outpatient but he was missing his appointments due to medical issues with his as well as his COVID. I decreased the amiodarone to 200 mg once daily. This was supposed to be tapered as an outpatient when he got sick and missed his follow-up appointment. I do not have him on oral anticoagulation because I felt the previous atrial fibrillation was brought on by pneumonia during a hospitalization earlier this year. (3) Ventricular tachycardia Assessment & Plan: He also had some possible ventricular tachycardia during his previous hospitalization earlier this year. There has been no evidence of recurrence. At some point I was planning on an outpatient ischemic evaluation but he was missing his appointments as outlined above. (4) Pulmonary hypertension Status: Chronic Assessment & Plan: His echocardiogram from earlier this year showed severe pulmonary hypertension. This is most likely due to his underlying chronic obstructive pulmonary disease. This will need to be followed longitudinally. He may benefit from home oxygen if he does not already have this in place. (5) Primary hypertension Status: Chronic Assessment & Plan: Continue diltiazem which she has been taking for hyp ertension and the previous atrial fibrillation. (6) Mixed hyperlipidemia Status: Chronic Assessment & Plan: Continue atorvastatin. (7) Acute on chronic respiratory failure with hypoxemia Assessment & Plan: Most likely due to an exacerbation of his chronic obstructive pulmonary disease as well as some superimposed heart failure. CAROL LEWIS JR, MD May 27, 2022 09:50
--- NOTE | 2022-05-27 11:26 | Progress Note - Hospitalist ---
MEL FLETCHER 05/27/22 1126: Subjective HPI/CC On Admission Date Seen by Provider: May 27, 2022 CC: AECOPD with acute on chronic respiratory failure HPI: This is a 66yoWM known to me from prior respiratory failure s/p long ventilator course before extubated and ultimately DC home 1 week later who apparently started smoking when he arrived home after last critical illness admit who quit smoking 4 weeks ago after he had COVID received Paxlovid but he saw the Chemical Research Technician who placed him on Levaquin and Prednisone but his dyspnea worsened and he arrived in resp failure requiring biPAP. He has severe COPD and will be at high risk for re-intubation. Dr Pugh consulted. Subjective/Events-last exam Audie Gonzalez is a 66y/o M who is being seen for follow up for acute on chronic respiratory failure. Pt reports that around 3am this morning he had increased trouble breathing and required the BiPAP. When I saw his he was back on NC 4L. Continuing to have SOB and cough. When he coughs he feels like he needs to cough something up but he is unable to. Appetite is ok. Denies any other concerns. Review of Systems General: No Chills, No Other (fever) HEENT: Head Aches; No Visual Changes, No Eye Pain Pulmonary: Dyspnea, Cough Cardiovascular: No: Chest Pain, Palpitations Gastrointestinal: Nausea; No: Vomiting, Abdominal Pain Genitourinary: No Dysuria, No Frequency Musculoskeletal: No: neck pain, back pain Neurological: No: Weakness, Numbness Focused Exam Lactate Level 05/26/22 06:22: Lactic Acid Level 2.90*H 05/26/22 08:20: Lactic Acid Level 2.43*H 05/26/22 10:31: Lactic Acid Level 1.94 Objective Exam Vital Signs Vital Signs Date Time Temp Pulse Resp B/P (MAP) Pulse Ox O2 Delivery O2 Flow Rate FiO2 05/27/22 11:00 101 20 132/86 100 High Flow N/C 4.00 05/27/22 07:00 36.4 05/26/22 09:35 50 Capillary Refill : Less Than 3 Seconds General Appearance: No Apparent Distress, WD/WN Neck: Non Tender, Supple Respiratory: Wheezing (diffuse), Other (tachpneic ) Cardiovascular: Regular Rate, Rhythm, No Murmur, Normal Peripheral Pulses Gastrointestinal: Non Tender, Soft Extremity: Non Tender, No Calf Tenderness, No Pedal Edema Neurologic/Psychiatric: Alert, Oriented x3 Skin: Normal Color, Warm/Dry Lymphatic: No Adenopathy Results/Procedures Lab Laboratory Tests 05/27/22 04:29 Patient resulted labs reviewed. Assessment/Plan Assessment and Plan Assess & Plan/Chief Complaint Acute on chronic respiratory failure requiring biPAP Severe COPD Heavy smoking history quit 4 weeks ago HTN AF HLP RA Chronic pain Plan: BiPAP as needed Supplemental O2 as needed Solu-medrol decreased to 80mg Q12H Pain control Will continue to monitor on ICU due to history of prior intubation SHERRI MOSLEY DO 05/28/22 0528: Subjective HPI/CC On Admission Time Seen by Provider: 10:30 Subjective/Events-last exam Pt is off the BiPAP but he is still very wheezy and very SOB 4L of Oxygen, O2 set at 97% but he appears to be fatiguing IV steroids changed to 80 mg IV q12 Review of Systems Pulmonary: Dyspnea, Cough Objective Exam General Appearance: WD/WN, Anxious, Chronically ill, Mild Distress Respiratory: Accessory Muscle Use, Decreased Breath Sounds, Wheezing (diffuse) Cardiovascular: Regular Rate, Rhythm Neurologic/Psychiatric: Alert, Oriented x3 Assessment/Plan Assessment and Plan Assess & Plan/Chief Complaint Likely will need intubated as he had in the past Supervisory-Addendum Brief Verification & Attestation Participated in pt care: history, MDM, physical Personally performed: exam, history, MDM, supervision of care Care discussed with: Medical Student Procedures: n/a Results interpretation: Verified all documentation Verification and Attestation of Medical Student E/M Service A medical student performed and documented this service in my presence. I reviewed and verified all information documented by the medical student and made modifications to such information, when appropriate. I personally performed the physical exam and medical decision making. Sherri Mosley, May 28, 2022,05:26 MEL FLETCHER May 27, 2022 11:26 SHERRI MOSLEY DO May 28, 2022 05:28
--- NOTE | 2022-05-27 13:31 | Occupational Therapy Eval ---
OT Evaluation-General/PLF Medical Diagnosis Admission Date May 26, 2022 at 08:36 Medical Diagnosis: Respiratory failure Onset Date: May 26, 2022 Therapy Diagnosis Therapy Diagnosis: decreased ADL status and weakness Precautions Precautions/Isolations: Fall Prevention, Standard Precautions Referral Physician: Catalina Olea Reason: Evaluation/Treatment Medical History Additional Medical History COPD (4L 02 at baseline), emphysema, HTN, PVD, GERD, and arthritis. Current History Worsening dyspnea, arrived to ED in resp. failure Social History Home: Mobile home Current Living Status: Spouse Entry Into Home: Ramp ADL-Prior Level of Function SCALE: Activities may be completed with or without assistive devices. 2-Hgcxbbytap-scntcdb completes the activity by him/herself with no assistance from a helper. 5-Set-up or Clean-up Assistance-helper sets up or cleans up; patient completes activity. [place] assists only prior to or following the activity. 4-Supervision or Touching Assistance-helper provides verbal cues and/or t ouching/steadying and/or contact guard assistance as patient completes activity. Assistance may be provided throughout the activity or intermittently. 3-Partial/Moderate Assistance-helper does LESS THAN HALF the effort. [place] lifts, holds or supports trunk or limbs, but provides less than half the effort. 2-Substantial/Maximal Assistance-helper does MORE THAN HALF the effort. [place] lifts or holds trunk or limbs and provides more than half the effort. 2-Aovtpeuyp-gudpuj does ALL the effort. Patient does none of the effort to complete the activity. Or, the assistance of 2 or more helpers is required for the patient to complete the activity. If activity was not attempted, code reason: 7-Patient Refused. 9-Not Applicable-not attempted and the patient did not perform the activity before the current illness, exacerbation or injury. 10-Not Attempted due to Environmental Limitations-(lack of equipment, weather restraints, etc.). 88-Not Attempted due to Medical Conditions or Safety Concerns. ADL PLOF Comments Pt reports being IND with ADLs and using a FWW for functional mobility at [facility]. He reports having a similar episode around February 2022, so he is familiar with the recovery process and how to handle his SOB. Pt told clinician that "I can do anything that you can do, but I'm just weaker right now." Self Care: Independent Functional Cognition: Independent DME/Equipment: Bath Chair (built into shower), Shower, Shower Hose Child Care Provider Occupation: retired [address] Self: Yes OT Current Status Subjective Pt in bed with family present upon OT arrival, agreeable to eval/tx. Mental Status/Objective Patient Orientation: Person, Place, Situation Attachments: Oxygen, Telemetry Current Upper Extremity ROM bilaterally WFL Upper Extremity Sensation Pt denies BUE sensation deficits Upper Extremity Strength ~4/5 bilaterally ADL-Treatment Eating (QC): 6 (per nursing and pt report) On/Off Footwear (QC): 6 Toileting Hygiene (QC): 5 (with urinal) Other Treatments Pt provided information about PLOF and living situation and participated in BUE screen while seated in bed. Pt did not want to participate in OOB activities until he used his urinal and said he could not "talk and pee at the same time." After pt completed toileting at bed level, he transferred to EOB and de monstrated footwear. Pt was eager to show clinician that he was able to do everything but that he was "weaker" than his "normal state." He was SOB during activities, requiring cues for PLB. SPO2 levels would drop to mid-high 80's during activity and increase to <95 with PLB and taking drinks of water. He independently stood from bed and stood for ~1min with no LOB. Pt sat back on bed and returned to supine independently. Pt adamant that he is independent with ADLs and doesn't require OT services. Post tx, pt left in bed with call light in reach and all needs met. Education OT Patient Education: Correct positioning, Energy conservation, Exercise program, Modified ADL techniques, Progress toward Goal/Update tx plan, Purpose of tx/functional activities, Rehab process Teaching Recipient: Patient Teaching Methods: Discussion Response to Teaching: Verbalize Understanding OT Correction Goals Reading Assistant Goals 1=Demonstrate adherence to instructed precautions during ADL tasks. 2=Patient will verbalize/demonstrate understanding of assistive devices/modifications for ADL. 3=Patient will improve strength/tolerance for activity to enable patient to perform ADL's. OT Education/Plan Problem List/Assessment Assessment: No Skilled OT Needs ID'd No skilled OT services indicated at this time, as pt is independent with ADLs and at PLOF, and pt requests no further services as he is independent. D/C from OT. Discharge Recommendations Plan/Recommendations: Discharge/Goals Met Treatment Plan/Plan of Care Patient would benefit from OT for education, treatment and training to promote independence in ADL's, mobility, safety and/or upper extremity function for ADL's. Plan of Care: ADL Retraining, Functional Mobility, Group Exercise/Act as Ind, UE Funct Exercise/Act Treatment Duration: May 27, 2022 Frequency: 1 time per week (eval only) Estimated Hrs Per Day: .25 hour per day Time/GCodes Start Time: 13:05 Stop Time: 13:23 Total Time Billed (hr/min): 18 Billed Treatment Time 1, EVL (18') NICOLAS ALEX OT May 27, 2022 13:31
[2022-05-27] MEDS ORDERED: LEVO750T39 PO (14:55)
[2022-05-27] MEDS ORDERED: TIOT4MIS3 INH (14:55)
[2022-05-27] MEDS ORDERED: PRD20T PO (14:55)
[2022-05-27] MEDS ORDERED: ALBU2.5V4 NEB (14:55)
--- NOTE | 2022-05-27 15:21 | Physical Therapy Evaluation ---
PT Evaluation-General Medical Diagnosis Admission Date May 26, 2022 at 08:36 Medical Diagnosis: Respiratory failure Onset Date: May 26, 2022 Therapy Diagnosis Therapy Diagnosis: impaired mobility, strength Precautions Precautions/Isolations: Fall Prevention, Standard Precautions Weight Bear Status Right Lower Extremity: Right Weight Bearing/Tolerated Left Lower Extremity: Left Weight Bearing/Tolerated Referral Physician: Catalina Reason for Referral: Evaluation/Treatment Medical History Additional Medical History Past Medical History COPD, Emphysema Currently Using CPAP: No Currently Using BIPAP: No Coronary Artery Disease, Heart Attack, High Cholesterol, Hypertension, Peripheral Vascular Prostate Problems Gastroesophageal Reflux Arthritis, Rheumatoid Arthritis Prostate Depression COPD with baseline oxygen need 4L HTN HLD Iron Def anemia Reviewed History: Yes Social History Home: Single Level Current Living Status: Spouse Entry Into Home: Ramp Prior Prior Level of Function SCALE: Activities may be completed with or without assistive devices. 6-Wkygmadhyz-doxjbpt completes the activity by him/herself with no assistance from a helper. 5-Set-up or Clean-up Assistance-helper sets up or cleans up; patient completes activity. [place] assists only prior to or following the activity. 4-Supervision or Touching Assistance-helper provides verbal cues and/or touching/steadying and/or contact guard assistance as patient completes activity. Assistance may be provided throughout the activity or intermittently. 3-Partial/Moderate Assistance-helper does LESS THAN HALF the effort. [place] lifts, holds or supports trunk or limbs, but provides less than half the effort. 2-Substantial/Maximal Assistance-helper does MORE THAN HALF the effort. [place] lifts or holds trunk or limbs and provides more than half the effort. 4-Vocxlugda-nbldhs does ALL the effort. Patient does none of the effort to complete the activity. Or, the assistance of 2 or more helpers is required for the patient to complete the activity. If activity was not attempted, code reason: 7-Patient Refused. 9-Not Applicable-not attempted and the patient did not perform the activity before the current illness, exacerbation or injury. 10-Not Attempted due to Environmental Limitations-(lack of equipment, weather restraints, etc.). 88-Not Attempted due to Medical Conditions or Safety Concerns. Bed Mobility: 6 Transfers (B,C,W/C): 6 Gait: 6 Indoor Mobility (Ambulation): Independent PT Evaluation-Current Subjective Patient in bed pre tx, agrees to PT, has 6/10 pain in belly and chest. Pt/Family Goals to be independent at home Objective Patient Orientation: Person, Place, Situation Attachments: Oxygen ROM/Strength ROM Lower Extremities WNL Strength Lower Extremities LLE (hip flexion 3+/5, knee flexion 4+/5, knee extension 4+/5, dorsiflexion 3+/5), RLE (hip flexion 3+/5, knee flexion 4+/5, knee extension 4+/5, dorsiflexion 3+/5) Sensory Hearing: Functional Sensation Right Lower Extremit: Intact Sensation Left Lower Extremity: Intact Transfers Roll Left to Right (QC): 6 Sit to Lying (QC): 6 Lying to Sitting/Side of Bed(Q: 6 Sit to Stand (QC): 4 Chair/Hte-vu-Uirmv Xfer(QC): 4 Gait Does the Patient Walk?: Yes Mode of Locomotion: Walk Anticipated Mode of Locomotion: Walk Walk 10 feet (QC): 4 Distance: 150' Gait Assistive Device: None Comments/Gait Description SBA, slow but steady ambulation, O2 remained in mid 90's during ambulation Balance Sitting Static: Normal Sitting Dynamic: Normal Standing Static: Good Standing Dynamic: Good Treatment BLE supine exercises x20 (AP, HS) Assessment/Needs Patient has impaired mobility, strength, endurance. Patient in bed post tx with nurse call, phone, tray, all needs met. He is SBA for transfers and ambulation. Rehab Potential: Fair PT Detention Goals Detention Goals PT Manager Assurance Goals Time Frame: Jun 03, 2022 Roll Left & Right (QC): 6 Sit to Lying (QC): 6 Lying-Sitting on Side/Bed(QC): 6 Sit to Stand (QC): 6 Chair/Lwf-ui-Dyofu Xfer(QC): 6 Walk 10 feet (QC): 6 Walk 50ft with 2 Turns (QC): 6 Walk 150 ft (QC): 6 PT Plan Problem List Problem List: Activity Tolerance, Functional Strength, Safety, Balance, Gait, Transfer, ROM Treatment/Plan Treatment Plan: Continue Plan of Care Treatment Plan: Education, Functional Activity Yvette, Functional Strength, Gait, Safety, Therapeutic Exercise, Transfers Treatment Duration: Jun 03, 2022 Frequency: 6 times per week Estimated Hrs Per Day: .25 hour per day Patient and/or Family Agrees t: Yes Safety Risks/Education Patient Education: Gait Training, Transfer Techniques, Correct Positioning, Safety Issues Teaching Recipient: Patient Teaching Methods: Demonstration, Discussion Response to Teaching: Reinforcement Needed Discharge Recommendations Plan Patient will perform bed mobility and transfer training, balance and endurance training, functional strengthening, stair training, gait training, and education, to improve functional mobility and independence at home. Therapy Discharge Recommendati: Scheduled Assistance, Home & Family, Post Acute PT Time/GCodes Time In: 1459 Time Out: 1512 Total Billed Treatment Time: 13 Total Billed Treatment 1 visit DUKE 13' JENNYFER NAVARRETE PT May 27, 2022 15:21
[2022-05-28] MEDS: morphine INJ 4 MG/ML 1 ML (VIAL/SYRINGE) IV PRN ×6 (00:14→20:36)
[2022-05-28] MEDS: RT-ALBUTEROL/IPRATROPIUM 3 ML (DUONEB) VIAL INH SCH ×6 (02:04→21:58)
[2022-05-28 02:05] VITALS: BP 110/75
[2022-05-28 05:45] LABS: BASOPHILS % (AUTO) 0 % (0-10); EOSINOPHILS % (AUTO) 0 % (0-10); HEMATOCRIT 34 % (40-54); HEMOGLOBIN 10.9 g/dL (13.3-17.7); LYMPHOCYTES # (AUTO) 0.6 10^3/uL (1.0-4.0); LYMPHOCYTES % (AUTO) 10 % (12-44); MEAN CORPUSCULAR HEMOGLOBIN 29 pg (25-34); MEAN CORPUSCULAR HGB CONC 32 g/dL (32-36); MEAN CORPUSCULAR VOLUME 88 fL (80-99); MEAN PLATELET VOLUME 10.4 fL (9.0-12.2); MONOCYTES # (AUTO) 0.3 10^3/uL (0.0-1.0); MONOCYTES % (AUTO) 4 % (0-12); NEUTROPHILS # (AUTO) 5.2 10^3/uL (1.8-7.8); NEUTROPHILS % (AUTO) 84 % (42-75); PLATELET COUNT 218 10^3/uL (130-400); WHITE BLOOD COUNT 6.2 10^3/uL (4.3-11.0)
[2022-05-28 05:59] LABS: POTASSIUM 4.2 MMOL/L (3.6-5.0)
[2022-05-28 06:00] LABS: CALCIUM 9.4 MG/DL (8.5-10.1)
[2022-05-28 06:03] LABS: BILIRUBIN,TOTAL 0.5 MG/DL (0.1-1.0)
[2022-05-28 06:05] LABS: CREATININE SERUM 0.89 MG/DL (0.60-1.30); PHOSPHORUS 4.3 MG/DL (2.3-4.7)
[2022-05-28 06:08] LABS: MAGNESIUM 2.4 MG/DL (1.6-2.4)
[2022-05-28] MEDS: KCL 20 MEQ TAB (K-DUR) PO SCH (06:08)
[2022-05-28] MEDS: POTASSIUM CL 10MEQ/50ML IVPB 50 ML IV SCH (06:08)
[2022-05-28] MEDS: MAGNESIUM 1 GM/100 ML IVPB 100 ML IV SCH (06:08)
[2022-05-28] MEDS: methylPREDNISolone 40 MG/ML (Solu-MEDROL) VIAL IV SCH ×2 (08:00→20:36)
[2022-05-28] MEDS: AMIODARONE 200 MG (CORDARONE) TAB PO SCH (08:00)
[2022-05-28] MEDS: DOCUSATE SODIUM 100 MG (COLACE) CAP PO SCH ×2 (08:00→20:57)
[2022-05-28] MEDS: SENNOSIDES 8.6 MG (SENOKOT) TAB PO SCH ×2 (08:00→20:57)
[2022-05-28] MEDS: dilTIAZem120 MG (CARDIZEM CD) CAP PO SCH (08:00)
[2022-05-28] MEDS: NICOTINE 21 MG (NICODERM) PATCH TD SCH (08:01)
[2022-05-28] MEDS: ALPRAZolam 0.25 MG (XANAX) TAB PO PRN ×3 (08:08→20:05)
[2022-05-28] MEDS: ENOXAPARIN 40 MG/0.4 ML (LOVENOX) SYR SC SCH (08:16)
--- NOTE | 2022-05-28 08:59 | Diagnostic Imaging Report ---
EXAMINATION: Chest 1 view HISTORY: Dyspnea. Follow-up. COMPARISON: 05/27/2022. FINDINGS: Patchy opacities and interstitial prominence are again seen in the mid and lower lungs bilaterally, right greater than left. No large pleural effusion or pneumothorax. Stable cardiac silhouette. There is calcified aortic atherosclerotic plaque. IMPRESSION: 1. Stable chest with stable bilateral opacities in the mid and lower lungs, suggestive of edema and/or infection. Dictated by: Dictated on workstation # [id number]
--- NOTE | 2022-05-28 09:56 | Physical Therapy Daily Note ---
PT Daily Note-Current Subjective Patient is very talkative. Agrees to PT. Mental Status Patient Orientation: Person, Time, Situation Attachments: Oxygen Transfers SCALE: Activities may be completed with or without assistive devices. 2-Bfsorwjzum-szvmkem completes the activity by him/herself with no assistance from a helper. 5-Set-up or Clean-up Assistance-helper sets up or cleans up; patient completes activity. Maljamar assists only prior to or following the activity. 4-Supervision or Touching Assistance-helper provides verbal cues and/or touching/steadying and/or contact guard assistance as patient completes activity. Assistance may be provided throughout the activity or intermittently. 3-Partial/Moderate Assistance-helper does LESS THAN HALF the effort. Maljamar lifts, holds or supports trunk or limbs, but provides less than half the effort. 2-Substantial/Maximal Assistance-helper does MORE THAN HALF the effort. Maljamar lifts or holds trunk or limbs and provides more than half the effort. 3-Fwtcldxct-udziub does ALL the effort. Patient does none of the effort to complete the activity. Or, the assistance of 2 or more helpers is required for the patient to complete the activity. If activity was not attempted, code reason: 7-Patient Refused. 9-Not Applicable-not attempted and the patient did not perform the activity before the current illness, exacerbation or injury. 10-Not Attempted due to Environmental Limitations-(lack of equipment, weather restraints, etc.). 88-Not Attempted due to Medical Conditions or Safety Concerns. Lying to Sitting/Side of Bed(Q: 6 Sit to Stand (QC): 4 Chair/Wte-kv-Hsbma Xfer(QC): 4 Weight Bearing Right Lower Extremity: Right Weight Bearing/Tolerated Left Lower Extremity: Left Weight Bearing/Tolerated Gait Training Distance: 200' Walk 10 feet (QC): 4 Walk 50 ft with 2 Turns(QC): 4 Walk 150 ft (QC): 4 Gait Assistive Device: FWW SBA with ambulate with FWW/O2 in place Exercises Seated Therapy Exercises: Ankle pumps, Long arc quads Seated Reps: 15 Assessment Patient requires time and multiple standing recovery periods due to SOA with O2 in place. Patient continued to talk during entire session which also may cause increase SOA. PT Care Home Goals Care Home Goals PT Grazing Aide Goals Time Frame: Jun 03, 2022 Roll Left & Right (QC): 6 Sit to Lying (QC): 6 Lying-Sitting on Side/Bed(QC): 6 Sit to Stand (QC): 6 Chair/Fsb-dw-Lzobi Xfer(QC): 6 Walk 10 feet (QC): 6 Walk 50ft with 2 Turns (QC): 6 Walk 150 ft (QC): 6 PT Plan Treatment/Plan Treatment Plan: Continue Plan of Care Treatment Plan: Education, Functional Activity Yvette, Functional Strength, Gait, Safety, Therapeutic Exercise, Transfers Treatment Duration: Jun 03, 2022 Frequency: 6 times per week Estimated Hrs Per Day: .25 hour per day Patient and/or Family Agrees t: Yes Time/GCodes Time In: 725 Time Out: 748 Total Billed Treatment Time: 23 Total Billed Treatment 1 visit FA x 2 23 min DOUGLAS WILEY PT May 28, 2022 09:56
--- NOTE | 2022-05-28 12:52 | Progress Note - Hospitalist ---
MEL FLETCHER 05/28/22 1252: Subjective HPI/CC On Admission Date Seen by Provider: May 28, 2022 CC: AECOPD with acute on chronic respiratory failure HPI: This is a 66yoWM known to me from prior respiratory failure s/p long ventilator course before extubated and ultimately DC home 1 week later who apparently started smoking when he arrived home after last critical illness admit who quit smoking 4 weeks ago after he had COVID received Paxlovid but he saw the Sifting Operator who placed him on Levaquin and Prednisone but his dyspnea worsened and he arrived in resp failure requiring biPAP. He has severe COPD and will be at high risk for re-intubation. Dr Pugh consulted. Subjective/Events-last exam Audie Gonzalez is a 66y/o M who is being seen for follow up due to acute on chronic respiratory failure. Pt reports that he is still getting SOB easily. He did need to wear the BiPAP last night. States that his breathing fluctuates where he will not have any issues and then a little later he will feel increased SOB. Also complaining of back pain. Review of Systems General: No Chills, No Other (fever) HEENT: No Head Aches, No Visual Changes Pulmonary: Dyspnea, Cough Cardiovascular: No: Chest Pain, Palpitations Gastrointestinal: Abdominal Pain; No: Nausea, Vomiting Genitourinary: No Dysuria, No Hematuria Musculoskeletal: neck pain, back pain Neurological: No: Weakness, Numbness Focused Exam Lactate Level 05/26/22 06:22: Lactic Acid Level 2.90*H 05/26/22 08:20: Lactic Acid Level 2.43*H 05/26/22 10:31: Lactic Acid Level 1.94 Objective Exam Vital Signs Vital Signs Date Time Temp Pulse Resp B/P (MAP) Pulse Ox O2 Delivery O2 Flow Rate FiO2 05/28/22 12:45 36.3 05/28/22 12:40 94 05/28/22 12:15 96 High Flow N/C 5.00 05/28/22 12:00 25 139/83 05/26/22 09:35 50 Capillary Refill : Less Than 3 Seconds General Appearance: No Apparent Distress, WD/WN Neck: Non Tender, Supple Respiratory: No Respiratory Distress, Wheezing (diffuse) Cardiovascular: No Murmur, Normal Peripheral Pulses, Tachycardia Gastrointestinal: Non Tender, Soft Extremity: Non Tender, No Calf Tenderness Neurologic/Psychiatric: Alert, Oriented x3 Skin: Normal Color, Warm/Dry Lymphatic: No Adenopathy Results/Procedures Lab Laboratory Tests 05/28/22 05:34 Patient resulted labs reviewed. Assessment/Plan Assessment and Plan Assess & Plan/Chief Complaint Acute on chronic respiratory failure requiring biPAP Severe COPD Heavy smoking history quit 4 weeks ago HTN AF HLP RA Chronic pain Plan: BiPAP as needed Supplemental O2 as needed Solu-medrol continue at 80mg Q12H Pain control, starting baclofen Will continue to monitor on ICU due to history of prior intubation SHERRI MOSLEY DO 05/29/22 0527: Subjective HPI/CC On Admission Time Seen by Provider: 10:00 Subjective/Events-last exam Patient looking for at risk for respiratory arrest Patient usually fails oxygen and BiPAP for several days before is ultimately intubated Objective Exam General Appearance: Anxious, Chronically ill, Mild Distress Respiratory: Accessory Muscle Use, Wheezing (diffuse) Cardiovascular: Regular Rate, Rhythm Assessment/Plan Assessment and Plan Assess & Plan/Chief Complaint Monitor for intubation need Supervisory-Addendum Brief Verification & Attestation Participated in pt care: history, MDM, physical Personally performed: exam, history, MDM, supervision of care Care discussed with: Medical Student Procedures: n/a Results interpretation: Verified all documentation Verification and Attestation of Medical Student E/M Service A medical student performed and documented this service in my presence. I reviewed and verified all information documented by the medical student and made modifications to such information, when appropriate. I personally performed the physical exam and medical decision making. Sherri Mosley May 29, 2022,05:25 MEL FLETCHER May 28, 2022 12:52 SHERRI MOSLEY DO May 29, 2022 05:27
[2022-05-28] MEDS: BACLOFEN 10 MG (LIORESAL) TAB PO PRN ×2 (15:51→20:05)
--- NOTE | 2022-05-28 16:36 | Cardiology Progress Note ---
Progress Note-Cardiology Events since last exam Date Seen by Provider: May 28, 2022 Time Seen by Provider: 16:35 Events since last exam I am following him due to atrial fibrillation and heart failure. He remains in the intensive care unit. He is complaining on his back and body pain. He states the oral narcotic medication is not enough and he keeps asking the nurses for intravenous morphine. His breathing is about the same as yesterday. He gets more short of breath in the morning and as the day goes on, he feels somewhat better. However, he is still very short of breath with activity. He denies chest discomfort, palpitations, syncope, or ankle edema. Certain portions of this document may have been dictated utilizing voice recognition technology. Inherent to this technology, typographical and g rammatical errors may exist. As much as I am diligent to identify and correct these mistakes, some errors may remain in the document. Vitals Last set of Vitals Signs Vital Signs 05/26/22 05/28/22 05/28/22 05/28/22 09:35 12:00 15:43 16:00 Temp 35.5 Pulse 94 Resp 25 B/P (MAP) 124/49 Pulse Ox 95 O2 Delivery High Flow N/C O2 Flow Rate 5.00 FiO2 50 Labs Labs Laboratory Tests 05/28/22 05:34 Exam Vital Signs Vital Signs Date Time Temp Pulse Resp B/P (MAP) Pulse Ox O2 Delivery O2 Flow Rate FiO2 05/28/22 16:00 94 124/49 95 High Flow N/C 5.00 05/28/22 15:43 35.5 05/28/22 12:00 25 05/26/22 09:35 50 Physical Exam General: Alert. No acute distress. He is on oxygen by nasal cannula. Eye: No xanthelasma. HENT: Normocephalic. Neck: Jugular venous pressure does not appear elevated. Respiratory: Lungs have diffusely decreased breath sounds. Respirations are non- labored. Breath sounds are equal. Symmetrical chest wall expansion. Cardiovascular: Normal rate. Regular rhythm. Distant S1/S2. No murmur. No gallop. No edema. Gastrointestinal: Soft. Normal bowel sounds. Skin: Warm. Dry. Neurologic: Alert and oriented to person, place, time. Cranial nerves 3-11 grossly intact. Psychiatric: Cooperative. Appropriate mood & affect. Labs Laboratory Tests Test 05/28/22 05:11 05/28/22 05:34 Range/Units Bedside Blood Gas pH (LAB) 7.390 7.310-7.410 Bedside Blood Gas pCO2 (LAB) 35.0 L 41.0-51.0 mmHg Bedside Blood Gas pO2 (LAB) 75 L 80-105 mmHg Bedside Blood Gas HCO3 (LAB) 21.2 L 23.0-28.0 mmol/L POC Blood Gas Total CO2 Calc 22 L 24-29 mmol/L Bedside Bl Gas O2 Saturation (Calc) 95 95-98 % Bedside Arterial Blood Base Excess -4 L -2-3 mmol/L White Blood Count 6.2 4.3-11.0 10^3/uL Red Blood Count 3.83 L 4.30-5.52 10^6/uL Hemoglobin 10.9 L 13.3-17.7 g/dL Hematocrit 34 L 40-54 % Mean Corpuscular Volume 88 80-99 fL Mean Corpuscular Hemoglobin 29 25-34 pg Mean Corpuscular Hemoglobin Concent 32 32-36 g/dL Red Cell Distribution Width 16.2 H 10.0-14.5 % Platelet Count 218 130-400 10^3/uL Mean Platelet Volume 10.4 9.0-12.2 fL Immature Granulocyte % (Auto) 2 % Neutrophils (%) (Auto) 84 H 42-75 % Lymphocytes (%) (Auto) 10 L 12-44 % Monocytes (%) (Auto) 4 0-12 % Eosinophils (%) (Auto) 0 0-10 % Basophils (%) (Auto) 0 0-10 % Neutrophils # (Auto) 5.2 1.8-7.8 10^3/uL Lymphocytes # (Auto) 0.6 L 1.0-4.0 10^3/uL Monocytes # (Auto) 0.3 0.0-1.0 10^3/uL Eosinophils # (Auto) 0.0 0.0-0.3 10^3/uL Basophils # (Auto) 0.0 0.0-0.1 10^3/uL Immature Granulocyte # (Auto) 0.1 0.0-0.1 10^3/uL Sodium Level 134 L 135-145 MMOL/L Potassium Level 4.2 3.6-5.0 MMOL/L Chloride Level 104 98-107 MMOL/L Carbon Dioxide Level 19 L 21-32 MMOL/L Anion Gap 11 5-14 MMOL/L Blood Urea Nitrogen 32 H 7-18 MG/DL Creatinine 0.89 0.60-1.30 MG/DL Estimat Glomerular Filtration Rate 95 BUN/Creatinine Ratio 36 Glucose Level 140 H 70-105 MG/DL Calcium Level 9.4 8.5-10.1 MG/DL Corrected Calcium 9.4 8.5-10.1 MG/DL Phosphorus Level 4.3 2.3-4.7 MG/DL Magnesium Level 2.4 1.6-2.4 MG/DL Total Bilirubin 0.5 0.1-1.0 MG/DL Aspartate Amino Transf (AST/SGOT) 118 H 5-34 U/L Alanine Aminotransferase (ALT/SGPT) 76 H 0-55 U/L Alkaline Phosphatase 76 40-136 U/L Total Protein 7.0 6.4-8.2 GM/DL Albumin 4.0 3.2-4.5 GM/DL Diagnosis/Problems Diagnosis/Problems (1) Acute on chronic heart failure with preserved ejection fraction (HFpEF) Status: Acute Assessment & Plan: His BNP is slightly elevated and chest x-ray is consistent with some pulmonary edema. His echocardiogram from January 2022 showed a normal ejection fraction. I will give him another dose of intravenous furosemide this evening and get him back on once daily dosing. (2) Paroxysmal atrial fibrillation Status: Chronic Assessment & Plan: He remains in sinus rhythm on amiodarone. I decreased the amiodarone to 200 mg once daily at the time of admission. This was supposed to be tapered as an outpatient when he got sick and missed his follow-up appointment. I do not have him on oral anticoagulation because I felt the previous atrial fibrillation was brought on by pneumonia during a hospitalization earlier this year. (3) Ventricular tachycardia Assessment & Plan: He also had some possible ventricular tachycardia during his previous hospitalization earlier this year. There has been no evidence of recurrence. At some point I was planning on an outpatient ischemic evaluation but he was missing his appointments as outlined above. (4) Pulmonary hypertension Status: Chronic Assessment & Plan: His echocardiogram from earlier this year showed severe pulmonary hypertension. This is most likely due to his underlying chronic obstructive pulmonary disease. This will need to be followed longitudinally. He may benefit from home oxygen if he does not already have this in place. (5) Primary hypertension Status: Chronic Assessment & Plan: Continue diltiazem which she has been taking for hypertension and the previous atrial fibrillation. (6) Mixed hyperlipidemia Status: Chronic Assessment & Plan: Continue atorvastatin. (7) Acute on chronic respiratory failure with hypoxemia Assessment & Plan: Most likely due to an exacerbation of his chronic obstructive pulmonary disease as well as some superimposed heart failure. CAROL LEWIS JR, MD May 28, 2022 16:36
[2022-05-28] MEDS ORDERED: FUROSEMIDE 40 MG/4 ML INJ (LASIX) IVP NR (16:45)
[2022-05-29] MEDS: BACLOFEN 10 MG (LIORESAL) TAB PO PRN (00:06)
[2022-05-29] MEDS: ALPRAZolam 0.25 MG (XANAX) TAB PO PRN (00:07)
[2022-05-29] MEDS: morphine INJ 4 MG/ML 1 ML (VIAL/SYRINGE) IV PRN (00:44)
[2022-05-29] MEDS: RT-ALBUTEROL/IPRATROPIUM 3 ML (DUONEB) VIAL INH SCH ×6 (02:20→22:00)
[2022-05-29 05:58] LABS: BASOPHILS % (AUTO) 0 % (0-10); EOSINOPHILS % (AUTO) 0 % (0-10); HEMATOCRIT 33 % (40-54); HEMOGLOBIN 10.5 g/dL (13.3-17.7); LYMPHOCYTES # (AUTO) 0.4 10^3/uL (1.0-4.0); LYMPHOCYTES % (AUTO) 7 % (12-44); MEAN CORPUSCULAR HEMOGLOBIN 28 pg (25-34); MEAN CORPUSCULAR HGB CONC 32 g/dL (32-36); MEAN CORPUSCULAR VOLUME 90 fL (80-99); MEAN PLATELET VOLUME 10.5 fL (9.0-12.2); MONOCYTES # (AUTO) 0.3 10^3/uL (0.0-1.0); MONOCYTES % (AUTO) 6 % (0-12); NEUTROPHILS # (AUTO) 4.6 10^3/uL (1.8-7.8); NEUTROPHILS % (AUTO) 83 % (42-75); PLATELET COUNT 238 10^3/uL (130-400); WHITE BLOOD COUNT 5.5 10^3/uL (4.3-11.0)
[2022-05-29] MEDS: MAGNESIUM 1 GM/100 ML IVPB 100 ML IV SCH (06:00)
[2022-05-29] MEDS: KCL 20 MEQ TAB (K-DUR) PO SCH (06:00)
[2022-05-29] MEDS: POTASSIUM CL 10MEQ/50ML IVPB 50 ML IV SCH (06:00)
[2022-05-29 06:01] LABS: ALBUMIN 3.7 GM/DL (3.2-4.5); POTASSIUM 3.9 MMOL/L (3.6-5.0)
[2022-05-29 06:04] LABS: TOTAL PROTEIN 6.5 GM/DL (6.4-8.2)
[2022-05-29 06:05] LABS: BILIRUBIN,TOTAL 0.4 MG/DL (0.1-1.0)
[2022-05-29 06:07] LABS: CREATININE SERUM 1.04 MG/DL (0.60-1.30); PHOSPHORUS 4.3 MG/DL (2.3-4.7)
[2022-05-29 06:10] LABS: MAGNESIUM 2.4 MG/DL (1.6-2.4)
--- NOTE | 2022-05-29 07:59 | Diagnostic Imaging Report ---
INDICATION: Shortness of breath. Portable chest 4:48 AM Heart size and pulmonary vascularity are normal. Lungs are clear. There are no effusions or pneumothoraces. IMPRESSION: No acute abnormalities in the chest. Dictated by: Dictated on workstation # [id number]
[2022-05-29] MEDS: DOCUSATE SODIUM 100 MG (COLACE) CAP PO SCH ×2 (08:15→20:14)
[2022-05-29] MEDS: dilTIAZem120 MG (CARDIZEM CD) CAP PO SCH (08:15)
[2022-05-29] MEDS: SENNOSIDES 8.6 MG (SENOKOT) TAB PO SCH ×2 (08:15→20:14)
[2022-05-29] MEDS: NICOTINE 21 MG (NICODERM) PATCH TD SCH (08:15)
[2022-05-29] MEDS: AMIODARONE 200 MG (CORDARONE) TAB PO SCH (08:15)
[2022-05-29] MEDS: FUROSEMIDE 40 MG/4 ML INJ (LASIX) IVP SCH (08:16)
[2022-05-29] MEDS: methylPREDNISolone 40 MG/ML (Solu-MEDROL) VIAL IV SCH ×2 (08:16→20:15)
[2022-05-29] MEDS: ENOXAPARIN 40 MG/0.4 ML (LOVENOX) SYR SC SCH (08:16)
--- NOTE | 2022-05-29 08:37 | Tele-ICU Progress Note ---
Subjective Date Seen by a Provider: May 29, 2022 Time Seen by a Provider: 08:32 Subjective/Events-last exam c/o SOB and pain requiring morphine, has been on pain meds at home has pAF which is under control on po amiodarone, now in sinus, also on po cardizem Has severe pulm HTN on echo probably from COPD but there may be also a component of ASHLEIGH-but thinks he may have it COPD-ABG today 7.40/37/76, on Medrol, albuterol, IV Laaix CXR looks ok except for elevated diaphragms Sepsis Event Evaluation Height, Weight, BMI Height: '" Weight: lbs. oz. kg; 32.80 BMI Method: Focused Exam Lactate Level 05/26/22 10:31: Lactic Acid Level 1.94 Exam Exam Patient acknowledged, consented, and participated in this virtual visit which was conducted using real time audio/video Vital Signs Date Time Temp Pulse Resp B/P (MAP) Pulse Ox O2 Delivery O2 Flow Rate FiO2 05/29/22 08:00 35.7 05/29/22 08:00 93 16 117/83 94 High Flow N/C 5.00 05/29/22 07:49 84 05/29/22 07:09 90 High Flow N/C 5.00 05/29/22 07:00 81 10 106/69 89 High Flow N/C 5.00 05/29/22 06:00 85 11 98/67 94 High Flow N/C 5.00 05/29/22 05:00 96 24 150/126 96 High Flow N/C 5.00 05/29/22 04:00 95 High Flow N/C 5.00 05/29/22 04:00 89 10 110/73 91 High Flow N/C 5.00 05/29/22 03:58 36.8 05/29/22 03:00 97 12 114/74 93 High Flow N/C 5.00 05/29/22 02:20 95 High Flow N/C 5.00 05/29/22 02:00 93 11 105/66 95 High Flow N/C 5.00 05/29/22 01:00 91 05/29/22 01:00 90 11 117/73 93 High Flow N/C 5.00 05/29/22 00:00 96 12 141/85 94 High Flow N/C 5.00 05/28/22 23:59 94 High Flow N/C 5.00 05/28/22 23:49 36.4 05/28/22 23:00 92 13 106/67 93 High Flow N/C 5.00 05/28/22 22:00 101 13 125/85 High Flow N/C 5.00 05/28/22 21:58 93 High Flow N/C 5.00 05/28/22 21:04 111 21 162/84 94 High Flow N/C 5.00 05/28/22 20:00 95 High Flow N/C 5.00 05/28/22 20:00 106 18 116/72 92 High Flow N/C 5.00 05/28/22 19:51 36.2 05/28/22 19:02 110 05/28/22 19:00 33 132/73 88 High Flow N/C 5.00 05/28/22 18:28 94 High Flow N/C 5.00 05/28/22 18:00 95 37 115/86 95 High Flow N/C 5.00 05/28/22 17:00 105 130/73 87 High Flow N/C 5.00 05/28/22 16:00 94 124/49 95 High Flow N/C 5.00 05/28/22 15:43 35.5 05/28/22 15:18 94 High Flow N/C 5.00 05/28/22 15:18 96 High Flow N/C 5.00 05/28/22 15:00 101 128/78 90 High Flow N/C 5.00 05/28/22 14:00 98 113/80 95 High Flow N/C 5.00 05/28/22 13:00 91 109/68 94 High Flow N/C 5.00 05/28/22 12:45 36.3 05/28/22 12:40 94 05/28/22 12:15 96 High Flow N/C 5.00 05/28/22 12:00 102 25 139/83 94 High Flow N/C 5.00 05/28/22 11:03 96 High Flow N/C 5.00 05/28/22 11:00 101 17 113/80 95 High Flow N/C 5.00 05/28/22 10:00 103 157/90 90 High Flow N/C 5.00 05/28/22 09:00 98 122/85 96 High Flow N/C 5.00 I & O 05/29/22 07:00 Intake Total 900 ml Output Total 1950 ml Balance -1050 ml Height & Weight Height: '" Weight: lbs. oz. kg; 32.80 BMI Method: General Appearance: Anxious, Chronically ill, Mild Distress HEENT: PERRL/EOMI, Normal ENT Inspection, Pharynx Normal, Moist Mucous Membranes Neck: Non Tender, Supple Respiratory: Accessory Muscle Use, Wheezing (diffuse) Cardiovascular: Regular Rate, Rhythm Capillary Refill: Less Than 3 Seconds Peripheral Pulses: 2+ Dorsalis Pedis (R), 2+ Left Dors-Pedis (L) (See free text.) Gastrointestinal: normal bowel sounds, non tender, soft Extremity: Non Tender, No Calf Tenderness Neurologic/Psychiatric: Alert, Oriented x3 Skin: Normal Color, Warm/Dry Lymphatic: No Adenopathy Results Lab Laboratory Tests 05/28/22 05:34 05/29/22 05:29 Assessment/Plan Assessment/Plan pAF, rate under control, will continue amiodarone COPD, would continue present meds and can start prednisone and start to taper pulm HTN, would look into ASHLEIGH I strongly suspect he has severe ASHLEIGH and should be tested, I discussed this with pt Critical Care: Critically Ill Patient Time spent with patient (mins): 30 GIDEON GILMORE MD May 29, 2022 08:37
[2022-05-29] MEDS: MEROPENEM 1,000 MG in NS (IVPB) 100 ML IV SCH ×2 (10:33→17:15)
--- NOTE | 2022-05-29 11:31 | Progress Note - Hospitalist ---
MEL FLETCHER 05/29/22 1131: Subjective HPI/CC On Admission Date Seen by Provider: May 29, 2022 CC: AECOPD with acute on chronic respiratory failure HPI: This is a 66yoWM known to me from prior respiratory failure s/p long ventilator course before extubated and ultimately DC home 1 week later who apparently started smoking when he arrived home after last critical illness admit who quit smoking 4 weeks ago after he had COVID received Paxlovid but he saw the [employer] Screen Watcher who placed him on Levaquin and Prednisone but his dyspnea worsened and he arrived in resp failure requiring biPAP. He has severe COPD and will be at high risk for re-intubation. Dr Pugh consulted. Subjective/Events-last exam Audie Gonzalez is a 66y/o M who is being seen for follow up due to acute on chronic respiratory failure. He states that he is doing better today. Says that his cough and SOB seem to be improving. Appetite has been good. Nursing reported that pt did become somewhat confused last night. Review of Systems General: No Chills, No Other (fever) HEENT: No Head Aches, No Visual Changes Pulmonary: Dyspnea, Cough Cardiovascular: No: Chest Pain, Palpitations Gastrointestinal: No: Nausea, Vomiting, Abdominal Pain Genitourinary: No Dysuria, No Frequency Musculoskeletal: back pain; No: neck pain Neurological: No: Weakness, Numbness Objective Exam Vital Signs Vital Signs Date Time Temp Pulse Resp B/P (MAP) Pulse Ox O2 Delivery O2 Flow Rate FiO2 05/29/22 10:54 96 High Flow N/C 5.00 05/29/22 10:00 97 32 130/74 05/29/22 08:00 35.7 05/26/22 09:35 50 Capillary Refill : Less Than 3 Seconds General Appearance: No Apparent Distress, WD/WN Neck: Non Tender, Supple Respiratory: No Respiratory Distress, Wheezing Cardiovascular: Regular Rate, Rhythm, No Murmur, Normal Peripheral Pulses Gastrointestinal: Non Tender, Soft Extremity: Non Tender, No Calf Tenderness Neurologic/Psychiatric: Alert, Oriented x3, Normal Mood/Affect Skin: Normal Color, Warm/Dry Lymphatic: No Adenopathy Results/Procedures Lab Laboratory Tests 05/29/22 05:29 Patient resulted labs reviewed. Assessment/Plan Assessment and Plan Assess & Plan/Chief Complaint Acute on chronic respiratory failure requiring biPAP Severe COPD Heavy smoking history quit 4 weeks ago Bacteremia HTN AF HLP RA Chronic pain Plan: BiPAP as needed Supplemental O2 as needed Solu-medrol continue at 80mg Q12H Blood culture grew branching, gram positive rods, starting meropenum for 6 days Pain control Will move to cardiac step down today SHERRI MOSLEY DO 05/29/222052: Objective Exam General Appearance: WD/WN, Anxious, Chronically ill, Mild Distress Respiratory: Accessory Muscle Use, Wheezing Cardiovascular: Regular Rate, Rhythm Assessment/Plan Assessment and Plan Assess & Plan/Chief Complaint Move to [facility] High risk for intubation still Supervisory-Addendum Brief Verification & Attestation Participated in pt care: history, MDM, physical Personally performed: exam, history, MDM, supervision of care Care discussed with: Medical Student Procedures: n/a Results interpretation: Verified all documentation Verification and Attestation of Medical Student E/M Service A medical student performed and documented this service in my presence. I reviewed and verified all information documented by the medical student and made modifications to such information, when appropriate. I personally performed the physical exam and medical decision making. Sherri Mosley, May 29, 2022,20:53 MEL FLETCHER May 29, 2022 11:31 SHERRI MOSLEY DO May 29, 2022 20:53
--- NOTE | 2022-05-29 14:48 | Physical Therapy Daily Note ---
PT Daily Note-Current Subjective Patient in bed pre tx, agrees to PT but states he has been having a harder time breathing and is depressed because he thought he was getting better. Appearance Patient in bed post tx with nurse call, phone, tray, all needs met. Mental Status Patient Orientation: Person, Place, Situation Attachments: Oxygen Transfers SCALE: Activities may be completed with or without assistive devices. 6-Venswlabkq-ontjqvg completes the activity by him/herself with no assistance from a helper. 5-Set-up or Clean-up Assistance-helper sets up or cleans up; patient completes activity. [place] assists only prior to or following the activity. 4-Supervision or Touching Assistance-helper provides verbal cues and/or touching/steadying and/or contact guard assistance as patient completes activity. Assistance may be provided throughout the activity or intermittently. 3-Partial/Moderate Assistance-helper does LESS THAN HALF the effort. Hollywood lifts, holds or supports trunk or limbs, but provides less than half the effort. 2-Substantial/Maximal Assistance-helper does MORE THAN HALF the effort. [place] lifts or holds trunk or limbs and provides more than half the effort. 2-Pbqfgnozw-lccjic does ALL the effort. Patient does none of the effort to complete the activity. Or, the assistance of 2 or more helpers is required for the patient to complete the activity. If activity was not attempted, code reason: 7-Patient Refused. 9-Not Applicable-not attempted and the patient did not perform the activity before the current illness, exacerbation or injury. 10-Not Attempted due to Environmental Limitations-(lack of equipment, weather restraints, etc.). 88-Not Attempted due to Medical Conditions or Safety Concerns. Roll Left & Right (QC): 6 Sit to Lying (QC): 6 Lying to Sitting/Side of Bed(Q: 6 Sit to Stand (QC): 4 Chair/Aub-ze-Qccgf Xfer(QC): 4 Weight Bearing Right Lower Extremity: Right Weight Bearing/Tolerated Left Lower Extremity: Left Weight Bearing/Tolerated Gait Training Distance: 60' Walk 10 feet (QC): 4 Walk 50 ft with 2 Turns(QC): 4 Gait Persons Needed: 1 Gait Assistive Device: FWW slow ambulation, had one seated rest break due to fatigue, had one slight knee buckling but patient was able to catch himself Treatments bed mobility and transfers, ambulation Assessment Current Status: Poor Progress Patient's O2 dropped to 76% on 5L of O2 through nasal canula, he needed cues to purse lip breathe after getting back to bed and it took a couple of minutes to come back up to 90%. PT Custodial Goals Custodial Goals PT Weights And Measures Sealer Goals Time Frame: Jun 03, 2022 Roll Left & Right (QC): 6 Sit to Lying (QC): 6 Lying-Sitting on Side/Bed(QC): 6 Sit to Stand (QC): 6 Chair/Ovc-zq-Qswsx Xfer(QC): 6 Walk 10 feet (QC): 6 Walk 50ft with 2 Turns (QC): 6 Walk 150 ft (QC): 6 PT Plan Problem List Problem List: Activity Tolerance, Functional Strength, Safety, Balance, Gait, Transfer, ROM Treatment/Plan Treatment Plan: Continue Plan of Care Treatment Plan: Education, Functional Activity Yvette, Functional Strength, Gait, Safety, Therapeutic Exercise, Transfers Treatment Duration: Jun 03, 2022 Frequency: 6 times per week Estimated Hrs Per Day: .25 hour per day Patient and/or Family Agrees t: Yes Safety Risks/Education Patient Education: Gait Training, Transfer Techniques, Correct Positioning, Safety Issues Teaching Recipient: Patient Teaching Methods: Demonstration, Discussion Response to Teaching: Reinforcement Needed Time/GCodes Time In: 1417 Time Out: 1434 Total Billed Treatment Time: 17 Total Billed Treatment 1 visit FA Elizabeth' JENNYFER NAVARRETE PT May 29, 2022 14:48
--- NOTE | 2022-05-29 16:07 | Cardiology Progress Note ---
Progress Note-Cardiology Events since last exam Date Seen by Provider: May 29, 2022 Time Seen by Provider: 16:06 Events since last exam I am following him due to atrial fibrillation and heart failure. He remains in the intensive care unit. He feels like his shortness of breath is worse today although he is actually requiring less oxygen. He feels very weak and tired. Pain control is still an issue for him. He denies chest discomfort, palpitations, syncope, or ankle edema. Certain portions of this document may have been dictated utilizing voice recognition technology. Inherent to this technology, typographical and grammatical errors may exist. As much as I am diligent to identify and correct these mistakes, some errors may remain in the document. Vitals Last set of Vitals Signs Vital Signs 05/26/22 05/29/22 05/29/22 05/29/22 09:35 17:00 18:00 18:34 Pulse 88 Resp 14 B/P (MAP) 92/49 Pulse Ox 90 O2 Delivery High Flow N/C O2 Flow Rate 5.00 FiO2 50 Labs Labs Laboratory Tests 05/29/22 05:29 Exam Vital Signs Vital Signs Date Time Temp Pulse Resp B/P (MAP) Pulse Ox O2 Delivery O2 Flow Rate FiO2 05/29/22 18:34 90 High Flow N/C 5.00 05/29/22 18:00 88 14 05/29/22 16:00 36.2 05/26/22 09:35 50 Physical Exam General: Alert. Mild respiratory distress when talking. He is obese. He is on oxygen by nasal cannula. Eye: No xanthelasma. HENT: Normocephalic. Neck: Jugular venous pressure does not appear elevated. Respiratory: Lungs have diffusely decreased breath sounds with some scattered wheezes. Respirations mildly labored with speaking. Breath sounds are equal. Symmetrical chest wall expansion. Cardiovascular: Normal rate. Regular rhythm. No murmur. No gallop. No edema. Gastrointestinal: Soft. Normal bowel sounds. Skin: Warm. Dry. Neurologic: Alert and oriented to person, place, time. Cranial nerves 3-11 grossly intact. Psychiatric: Cooperative. Appropriate mood & affect. Labs Laboratory Tests Test 05/29/22 05:29 05/29/22 06:03 Range/Units White Blood Count 5.5 4.3-11.0 10^3/uL Red Blood Count 3.72 L 4.30-5.52 10^6/uL Hemoglobin 10.5 L 13.3-17.7 g/dL Hematocrit 33 L 40-54 % Mean Corpuscular Volume 90 80-99 fL Mean Corpuscular Hemoglobin 28 25-34 pg Mean Corpuscular Hemoglobin Concent 32 32-36 g/dL Red Cell Distribution Width 16.1 H 10.0-14.5 % Platelet Count 238 130-400 10^3/uL Mean Platelet Volume 10.5 9.0-12.2 fL Immature Granulocyte % (Auto) 4 % Neutrophils (%) (Auto) 83 H 42-75 % Lymphocytes (%) (Auto) 7 L 12-44 % Monocytes (%) (Auto) 6 0-12 % Eosinophils (%) (Auto) 0 0-10 % Basophils (%) (Auto) 0 0-10 % Neutrophils # (Auto) 4.6 1.8-7.8 10^3/uL Lymphocytes # (Auto) 0.4 L 1.0-4.0 10^3/uL Monocytes # (Auto) 0.3 0.0-1.0 10^3/uL Eosinophils # (Auto) 0.0 0.0-0.3 10^3/uL Basophils # (Auto) 0.0 0.0-0.1 10^3/uL Immature Granulocyte # (Auto) 0.2 H 0.0-0.1 10^3/uL Sodium Level 138 135-145 MMOL/L Potassium Level 3.9 3.6-5.0 MMOL/L Chloride Level 104 98-107 MMOL/L Carbon Dioxide Level 20 L 21-32 MMOL/L Anion Gap 14 5-14 MMOL/L Blood Urea Nitrogen 38 H 7-18 MG/DL Creatinine 1.04 0.60-1.30 MG/DL Estimat Glomerular Filtration Rate 79 BUN/Creatinine Ratio 37 Glucose Level 180 H 70-105 MG/DL Calcium Level 9.0 8.5-10.1 MG/DL Corrected Calcium 9.2 8.5-10.1 MG/DL Phosphorus Level 4.3 2.3-4.7 MG/DL Magnesium Level 2.4 1.6-2.4 MG/DL Total Bilirubin 0.4 0.1-1.0 MG/DL Aspartate Amino Transf (AST/SGOT) 90 H 5-34 U/L Alanine Aminotransferase (ALT/SGPT) 95 H 0-55 U/L Alkaline Phosphatase 80 40-136 U/L Total Protein 6.5 6.4-8.2 GM/DL Albumin 3.7 3.2-4.5 GM/DL Bedside Blood Gas pH (LAB) 7.401 7.310-7.410 Bedside Blood Gas pCO2 (LAB) 37.2 L 41.0-51.0 mmHg Bedside Blood Gas pO2 (LAB) 76 L 80-105 mmHg Bedside Blood Gas HCO3 (LAB) 23.1 23.0-28.0 mmol/L POC Blood Gas Total CO2 Calc 24 24-29 mmol/L Bedside Bl Gas O2 Saturation (Calc) 95 95-98 % Bedside Arterial Blood Base Excess -2 -2-3 mmol/L Diagnosis/Problems Diagnosis/Problems (1) Acute on chronic heart failure with preserved ejection fraction (HFpEF) Status: Acute Assessment & Plan: His BNP was slightly elevated and chest x-ray is consistent with some pulmonary edema. His echocardiogram from January 2022 showed a normal ejection fraction. I gave him another dose of intravenous furosemide on 05/28. He is currently ordered for daily IV furosemide. We will need to watch his renal function closely. (2) Paroxysmal atrial fibrillation Status: Chronic Assessment & Plan: He remains in sinus rhythm on amiodarone. I decreased the amiodarone to 200 mg once daily at the time of admission. This was supposed to be tapered as an outpatient but then he got sick and missed his follow-up appointment. I do not have him on oral anticoagulation because I felt the previous atrial fibrillation was brought on by pneumonia during a hosp italization earlier this year. (3) Ventricular tachycardia Assessment & Plan: He also had some possible ventricular tachycardia during his previous hospitalization earlier this year. There has been no evidence of recurrence during this hospitalization. At some point I was planning on an outpatient ischemic evaluation but he was missing his appointments as outlined above. (4) Pulmonary hypertension Status: Chronic Assessment & Plan: His echocardiogram from earlier this year showed severe pulmonary hypertension. This is most likely due to his underlying chronic obstructive pulmonary disease. This will need to be followed longitudinally. He may benefit from home oxygen if he does not already have this in place. (5) Primary hypertension Status: Chronic Assessment & Plan: Continue diltiazem which she has been taking for hypertension and the previous atrial fibrillation. His blood pressures have been running on the low side at times. If this persists, we may need to adjust the diltiazem. (6) Mixed hyperlipidemia Status: Chronic Assessment & Plan: Continue atorvastatin. (7) Acute on chronic respiratory failure with hypoxemia Assessment & Plan: Most likely due to an exacerbation of his chronic obst ructive pulmonary disease as well as some superimposed heart failure. He does not seem to be making much progress. We may need to suggest palliative care if he does not make any improvement in the next few days. CAROL LEWIS JR, MD May 29, 2022 16:07
[2022-05-29] MEDS: MELATONIN 3 MG TABLET PO PRN (20:14)
[2022-05-30] MEDS: ALPRAZolam 0.25 MG (XANAX) TAB PO PRN ×5 (00:05→20:18)
[2022-05-30] MEDS: MEROPENEM 1,000 MG in NS (IVPB) 100 ML IV SCH ×3 (02:13→16:29)
[2022-05-30] MEDS: RT-ALBUTEROL/IPRATROPIUM 3 ML (DUONEB) VIAL INH SCH ×6 (02:14→21:52)
[2022-05-30 04:43] LABS: BASOPHILS % (AUTO) 0 % (0-10); EOSINOPHILS % (AUTO) 0 % (0-10); HEMATOCRIT 32 % (40-54); HEMOGLOBIN 10.2 g/dL (13.3-17.7); LYMPHOCYTES # (AUTO) 0.4 10^3/uL (1.0-4.0); LYMPHOCYTES % (AUTO) 7 % (12-44); MEAN CORPUSCULAR HEMOGLOBIN 28 pg (25-34); MEAN CORPUSCULAR HGB CONC 32 g/dL (32-36); MEAN CORPUSCULAR VOLUME 89 fL (80-99); MEAN PLATELET VOLUME 10.4 fL (9.0-12.2); MONOCYTES # (AUTO) 0.2 10^3/uL (0.0-1.0); MONOCYTES % (AUTO) 4 % (0-12); NEUTROPHILS # (AUTO) 4.4 10^3/uL (1.8-7.8); NEUTROPHILS % (AUTO) 84 % (42-75); PLATELET COUNT 211 10^3/uL (130-400); WHITE BLOOD COUNT 5.3 10^3/uL (4.3-11.0)
[2022-05-30 05:14] LABS: ALBUMIN 3.4 GM/DL (3.2-4.5); BILIRUBIN,TOTAL 0.4 MG/DL (0.1-1.0); CALCIUM 8.9 MG/DL (8.5-10.1); CREATININE SERUM 0.98 MG/DL (0.60-1.30); MAGNESIUM 2.5 MG/DL (1.6-2.4); POTASSIUM 4.1 MMOL/L (3.6-5.0); TOTAL PROTEIN 5.6 GM/DL (6.4-8.2)
--- NOTE | 2022-05-30 07:41 | Diagnostic Imaging Report ---
INDICATION: Dyspnea COMPARISON: 05/29/2022 TECHNIQUE: Single radiograph of the chest dated 05/30/2022. FINDINGS: The cardiac silhouette is within normal limits in size. No significant pulmonary vascular congestion. New infiltrate is noted within the right lung base. The lungs otherwise appear stable. No significant pleural effusion. No pneumothorax. No acute osseous abnormality. IMPRESSION: New right basilar infiltrate, which may relate to pneumonia versus aspiration. Dictated by: Dictated on workstation # [id number]
[2022-05-30] MEDS: dilTIAZem120 MG (CARDIZEM CD) CAP PO SCH (08:18)
[2022-05-30] MEDS: AMIODARONE 200 MG (CORDARONE) TAB PO SCH (08:18)
[2022-05-30] MEDS: SENNOSIDES 8.6 MG (SENOKOT) TAB PO SCH ×2 (08:18→20:19)
[2022-05-30] MEDS: NICOTINE 21 MG (NICODERM) PATCH TD SCH (08:18)
[2022-05-30] MEDS: ENOXAPARIN 40 MG/0.4 ML (LOVENOX) SYR SC SCH (08:19)
[2022-05-30] MEDS: DOCUSATE SODIUM 100 MG (COLACE) CAP PO SCH ×2 (08:19→20:18)
[2022-05-30] MEDS: FUROSEMIDE 40 MG/4 ML INJ (LASIX) IVP SCH (08:19)
[2022-05-30] MEDS: methylPREDNISolone 40 MG/ML (Solu-MEDROL) VIAL IV SCH ×2 (08:19→20:20)
--- NOTE | 2022-05-30 10:11 | Physical Therapy Progress Note ---
Therapy Progress Note Patient declined PT stating, "I'm have a bad breathing day." RN confirms. Will attempt tomorrow. 1 ref DOUGLAS WILEY PT May 30, 2022 10:11
--- NOTE | 2022-05-30 11:04 | Cardiology Progress Note ---
Progress Note-Cardiology Events since last exam Date Seen by Provider: May 30, 2022 Time Seen by Provider: 11:03 Events since last exam I am following him due to heart failure and history of atrial fibrillation. He feels as though his breathing is no better. He has a persistent cough. Now his ribs are hurting from the cough. Otherwise, he denies chest discomfort. He denies palpitations, syncope, or peripheral edema. Certain portions of this document may have been dictated utilizing voice recognition technology. Inherent to this technology, typographical and grammatical errors may exist. As much as I am diligent to identify and correct these mistakes, some errors may remain in the document. Vitals Last set of Vitals Signs Vital Signs 05/26/22 05/30/22 05/30/22 09:35 16:00 17:00 Temp 36.4 Pulse 96 Resp 22 B/P (MAP) 135/74 Pulse Ox 97 O2 Delivery High Flow N/C O2 Flow Rate 5.00 FiO2 50 Labs Labs Laboratory Tests 05/30/22 04:15 Exam Vital Signs Vital Signs Date Time Temp Pulse Resp B/P (MAP) Pulse Ox O2 Delivery O2 Flow Rate FiO2 05/30/22 17:00 96 22 135/74 97 High Flow N/C 5.00 05/30/22 16:00 36.4 05/26/22 09:35 50 Physical Exam General: Alert. Mild respiratory distress when speaking. He is wearing oxygen by nasal cannula. Eye: No xanthelasma. HENT: Normocephalic. Neck: Jugular venous pressure does not appear elevated. Respiratory: Lungs have scattered wheezes bilaterally. Respirations are non- labored. Breath sounds are equal. Symmetrical chest wall expansion. Cardiovascular: Normal rate. Regular rhythm. Distant S1/S2. No murmur. No gallop. No edema. Gastrointestinal: Soft. Normal bowel sounds. Skin: Warm. Dry. Neurologic: Alert and oriented to person, place, time. Cranial nerves 3-11 grossly intact. Psychiatric: Cooperative. Appropriate mood & affect. Labs Laboratory Tests Test 05/30/22 04:15 05/30/22 11:37 Range/Units White Blood Count 5.3 4.3-11.0 10^3/uL Red Blood Count 3.62 L 4.30-5.52 10^6/uL Hemoglobin 10.2 L 13.3-17.7 g/dL Hematocrit 32 L 40-54 % Mean Corpuscular Volume 89 80-99 fL Mean Corpuscular Hemoglobin 28 25-34 pg Mean Corpuscular Hemoglobin Concent 32 32-36 g/dL Red Cell Distribution Width 16.0 H 10.0-14.5 % Platelet Count 211 130-400 10^3/uL Mean Platelet Volume 10.4 9.0-12.2 fL Immature Granulocyte % (Auto) 4 % Neutrophils (%) (Auto) 84 H 42-75 % Lymphocytes (%) (Auto) 7 L 12-44 % Monocytes (%) (Auto) 4 0-12 % Eosinophils (%) (Auto) 0 0-10 % Basophils (%) (Auto) 0 0-10 % Neutrophils # (Auto) 4.4 1.8-7.8 10^3/uL Lymphocytes # (Auto) 0.4 L 1.0-4.0 10^3/uL Monocytes # (Auto) 0.2 0.0-1.0 10^3/uL Eosinophils # (Auto) 0.0 0.0-0.3 10^3/uL Basophils # (Auto) 0.0 0.0-0.1 10^3/uL Immature Granulocyte # (Auto) 0.2 H 0.0-0.1 10^3/uL Sodium Level 142 135-145 MMOL/L Potassium Level 4.1 3.6-5.0 MMOL/L Chloride Level 107 98-107 MMOL/L Carbon Dioxide Level 24 21-32 MMOL/L Anion Gap 11 5-14 MMOL/L Blood Urea Nitrogen 36 H 7-18 MG/DL Creatinine 0.98 0.60-1.30 MG/DL Estimat Glomerular Filtration Rate 85 BUN/Creatinine Ratio 37 Glucose Level 170 H 70-105 MG/DL Calcium Level 8.9 8.5-10.1 MG/DL Corrected Calcium 9.4 8.5-10.1 MG/DL Magnesium Level 2.5 H 1.6-2.4 MG/DL Total Bilirubin 0.4 0.1-1.0 MG/DL Aspartate Amino Transf (AST/SGOT) 33 5-34 U/L Alanine Aminotransferase (ALT/SGPT) 67 H 0-55 U/L Alkaline Phosphatase 72 40-136 U/L Total Protein 5.6 L 6.4-8.2 GM/DL Albumin 3.4 3.2-4.5 GM/DL Bedside Blood Gas pH (LAB) 7.460 H 7.310-7.410 Bedside Blood Gas pCO2 (LAB) 35.7 L 41.0-51.0 mmHg Bedside Blood Gas pO2 (LAB) 73 L 80-105 mmHg Bedside Blood Gas HCO3 (LAB) 25.4 23.0-28.0 mmol/L POC Blood Gas Total CO2 Calc 26 24-29 mmol/L Bedside Bl Gas O2 Saturation (Calc) 95 95-98 % Bedside Arterial Blood Base Excess 2 -2-3 mmol/L Diagnosis/Problems Diagnosis/Problems (1) Acute on chronic heart failure with preserved ejection fraction (HFpEF) Status: Acute Assessment & Plan: His BNP was slightly elevated and chest x-ray is consistent with some pulmonary edema. His echocardiogram from January 2022 showed a normal ejection fraction. I gave him another dose of intravenous furosemide on 05/28. He is currently ordered for daily IV furosemide. We will need to watch his renal function closely. (2) Paroxysmal atrial fibrillation Status: Chronic Assessment & Plan: He remains in sinus rhythm on amiodarone. I decreased the amiodarone to 200 mg once daily at the time of admission. This was supposed to be tapered as an outpatient but then he got sick and missed his follow-up petra ointment. I do not have him on oral anticoagulation because I felt the previous atrial fibrillation was brought on by pneumonia during a hospitalization earlier this year. (3) Ventricular tachycardia Assessment & Plan: He also had some possible ventricular tachycardia during his previous hospitalization earlier this year. There has been no evidence of recurrence during this hospitalization. At some point I was planning on an outpatient ischemic evaluation but he was missing his appointments as outlined above. (4) Pulmonary hypertension Status: Chronic Assessment & Plan: His echocardiogram from earlier this year showed severe pulmonary hypertension. This is most likely due to his underlying chronic obstructive pulmonary disease. This will need to be followed longitudinally. He may benefit from home oxygen if he does not already have this in place. (5) Primary hypertension Status: Chronic Assessment & Plan: Continue diltiazem which she has been taking for hypertension and the previous atrial fibrillation. His blood pressures have been running on the low side at times. If this persists, we may need to adjust the diltiazem. (6) Mixed hyperlipidemia Status: Chronic Assessment & Plan: Continue atorvastatin. (7) Acute on chronic respiratory failure with hypoxemia Assessment & Plan: Most likely due to an exacerbation of his chronic obstructive pulmonary disease as well as some superimposed heart failure. He does not seem to be making much progress. We may need to suggest palliative care if he does not make any improvement in the next few days. CAROL LEWIS JR, MD May 30, 2022 11:04
--- NOTE | 2022-05-30 12:43 | Tele-ICU Progress Note ---
Subjective Date Seen by a Provider: May 30, 2022 Time Seen by a Provider: 12:43 Subjective/Events-last exam (Tele-ICU Physician , Progress Note ) Available chart/ vitals / labs / Images reviewed Video assessment done using teleICU camera, rest of exam as per RN Discussed with RN Events overnight : Afebrile hemodynamically stable Respiratory - 5 l I/O =even Drips: Pressors- no A/P PAF which is under control on po amiodarone, now in sinus, also on po cardizem Severe pulm HTN on echo probably from COPD but there may be also a component of ASHLEIGH-but thinks he may have it, and should be tested ? COPD- Medrol, albuterol, IV Lasix- to decrease steroids tomorrow Empiric abx - merrem Lines : periph , (Central Line Necessity Reviewed) Vanessa: void OG: Nutrition: Po Analgesia: Anxiety/ delirium VTE Prophylaxis: promise 40 q12 Stress Ulcer Prophylaxis: Po Plans in collaboration with bedside consultants and IM MDs. Discussed with RN to reach out if any questions or concerns A total of 20 minutes of critical care time was devoted to this patient today, required to treat and/or prevent further deterioration of critical care condition ( as above ) . Sepsis Event Evaluation Height, Weight, BMI Height: '" Weight: lbs. oz. kg; 33.09 BMI Method: Exam Exam Patient acknowledged, consented, and participated in this virtual visit which was conducted using real time audio/video Vital Signs Date Time Temp Pulse Resp B/P (MAP) Pulse Ox O2 Delivery O2 Flow Rate FiO2 05/30/22 12:00 94 24 129/67 90 High Flow N/C 5.00 05/30/22 12:00 36.8 05/30/22 10:41 94 High Flow N/C 4.00 05/30/22 08:00 96 High Flow N/C 5.00 05/30/22 08:00 35.2 05/30/22 07:24 High Flow N/C 4.00 05/30/22 07:17 97 High Flow N/C 5.00 05/30/22 07:00 77 05/30/22 04:23 96 High Flow N/C 5.00 05/30/22 04:00 36.0 05/30/22 02:14 96 High Flow N/C 5.00 05/30/22 01:00 75 05/30/22 00:00 36.1 05/30/22 00:00 102 23 147/86 98 High Flow N/C 5.00 05/29/22 23:47 96 High Flow N/C 5.00 05/29/22 22:01 93 High Flow N/C 5.00 05/29/22 20:00 96 High Flow N/C 5.00 05/29/22 19:56 36.4 92 14 142/92 95 High Flow N/C 5.00 05/29/22 19:00 90 05/29/22 18:34 90 High Flow N/C 5.00 05/29/22 18:00 88 14 100 High Flow N/C 5.00 05/29/22 17:00 88 14 92/49 94 High Flow N/C 5.00 05/29/22 16:00 36.2 05/29/22 16:00 99 116/66 93 High Flow N/C 5.00 05/29/22 16:00 95 High Flow N/C 5.00 05/29/22 15:21 96 High Flow N/C 5.00 05/29/22 15:00 99 110/63 92 High Flow N/C 5.00 05/29/22 13:30 84 10 107/62 93 High Flow N/C 5.00 05/29/22 13:28 83 05/29/22 13:00 97 18 96 High Flow N/C 5.00 I & O 05/30/22 07:00 Intake Total 2297 ml Output Total 1850 ml Balance 447 ml Height & Weight Height: '" Weight: lbs. oz. kg; 33.09 BMI Method: General Appearance: WD/WN, Anxious, Chronically ill, Mild Distress HEENT: PERRL/EOMI, Normal ENT Inspection, Pharynx Normal, Moist Mucous Membranes Neck: Non Tender, Supple Respiratory: Accessory Muscle Use, Wheezing Cardiovascular: Regular Rate, Rhythm Capillary Refill: Less Than 3 Seconds Peripheral Pulses: 2+ Dorsalis Pedis (R), 2+ Left Dors-Pedis (L) (See free text.) Gastrointestinal: normal bowel sounds, non tender, soft Extremity: Non Tender, No Calf Tenderness Neurologic/Psychiatric: Alert, Oriented x3 Skin: Normal Color, Warm/Dry Lymphatic: No Adenopathy Results Lab Laboratory Tests 05/29/22 05:29 05/30/22 04:15 Assessment/Plan Assessment/Plan 1 IGNACIO ALDRICH MD May 30, 2022 12:43
--- NOTE | 2022-05-30 12:48 | Progress Note - Hospitalist ---
MEL FLETCHER 05/30/22 1248: Subjective HPI/CC On Admission Date Seen by Provider: May 30, 2022 CC: AECOPD with acute on chronic respiratory failure HPI: This is a 66yoWM known to me from prior respiratory failure s/p long ventilator course before extubated and ultimately DC home 1 week later who apparently started smoking when he arrived home after last critical illness admit who quit smoking 4 weeks ago after he had COVID received Paxlovid but he saw the Data Entry Operator who placed him on Levaquin and Prednisone but his dyspnea worsened and he arrived in resp failure requiring biPAP. He has severe COPD and will be at high risk for re-intubation. Dr Pugh consulted. Subjective/Events-last exam Audie Gonzalez is a 66y/o who is being seen for follow up due to acute on chronic respiratory failure. Pt reports that he is doing worse today. Says that his SOB has increased and he is laboring more to breath. It is painful for him to cough. Did not wear BiPAP at all yesterday he reports. Review of Systems General: No Chills, No Other (fever) HEENT: No Head Aches, No Visual Changes Pulmonary: Dyspnea, Cough Cardiovascular: No: Chest Pain, Palpitations Gastrointestinal: No: Nausea, Vomiting, Abdominal Pain Genitourinary: No Dysuria, No Frequency Musculoskeletal: back pain; No: neck pain Neurological: Weakness (muscle); No: Numbness Objective Exam Vital Signs Vital Signs Date Time Temp Pulse Resp B/P (MAP) Pulse Ox O2 Delivery O2 Flow Rate FiO2 05/30/22 12:00 94 24 129/67 90 High Flow N/C 5.00 05/30/22 12:00 36.8 05/26/22 09:35 50 Capillary Refill : Less Than 3 Seconds General Appearance: WD/WN, Mild Distress Neck: Non Tender, Supple Respiratory: Accessory Muscle Use, Wheezing (diffuse) Cardiovascular: No Murmur, Normal Peripheral Pulses, Tachycardia Gastrointestinal: Non Tender, Soft Extremity: Non Tender, No Calf Tenderness Neurologic/Psychiatric: Alert, Oriented x3 Skin: Normal Color, Warm/Dry Lymphatic: No Adenopathy Results/Procedures Lab Laboratory Tests 05/30/22 04:15 Patient resulted labs reviewed. Assessment/Plan Assessment and Plan Assess & Plan/Chief Complaint Acute on chronic respiratory failure requiring biPAP Severe COPD Heavy smoking history quit 4 weeks ago Bacteremia HTN AF HLP RA Chronic pain Plan: BiPAP as needed Supplemental O2 as needed Solu-medrol continue at 80mg Q12H Blood culture grew branching, gram positive rods, meropenum for 6 days CXR done today showed new right basilar infiltrates, covered by meropenum Pain control Return to ICU status SHERRI MOSLEY DO 05/30/222111: Subjective HPI/CC On Admission Time Seen by Provider: 11:00 Subjective/Events-last exam Patient doing about the same New infiltrate on chest x-ray My prediction is he will need intubation soon Review of Systems Pulmonary: Dyspnea Objective Exam General Appearance: Anxious, Mild Distress Assessment/Plan Assessment and Plan Assess & Plan/Chief Complaint icu meropenem Supervisory-Addendum Brief Verification & Attestation Participated in pt care: history, MDM, physical Personally performed: exam, history, MDM, supervision of care Care discussed with: Medical Student Procedures: n/a Results interpretation: Verified all documentation Verification and Attestation of Medical Student E/M Service A medical student performed and documented this service in my presence. I reviewed and verified all information documented by the medical student and made modifications to such information, when appropriate. I personally performed the physical exam and medical decision making. Sherri Mosley May 30, 2022,21:11 MEL FLETCHER May 30, 2022 12:48 SHERRI MOSLEY DO May 30, 2022 21:12
--- NOTE | 2022-05-30 17:08 | Physician Query Clarification ---
Physician Query-General Query to Physician: The medical record reflects the following clinical scenario: The patient, in the setting of History/Risk factors, chronic heart failure with preserved ejection fraction, HTN Clinical Findings BNP 454.9, (increased from previous admission- 376), 05/26/2022 chest x-ray "findings of pulmonary edema" "dyspnea worsened and he arrived in resp failure requiring biPAP." Treatment IV Lasix in ER and Daily, I and O, , Cardiac consult, Supplemental 02 and Bipap Question: Do you agree with the impression of Acute on chronic heart failure with preserved ejection fraction (HFpEF) per Dr. Joslyn Pugh? 1. Yes; will document Acute on chronic heart failure with preserved ejection fraction (HFpEF), present on admission in the Progress Notes 2. No; will continue current documentation in the Progress Notes 3. Other; will document explanation of clinical findings 4. Clinically undetermined; no explanation for clinical findings Please clarify and document your clinical opinion in the Progress Notes and Discharge Summary including the definitive and/or presumptive diagnosis, (s uspected or probable), related to the above clinical findings. Please include clinical findings supporting your diagnosis. In responding to this query, please exercise your independent professional judgment. The purpose of this communication is to more accurately reflect the complexity of your patients condition. The fact that a question is asked does not imply that any particular answer is desired or expected. Thank you for timely response to this clarification. Marshal Velez RN, MSN Clinical Patent Chemist [phone] PHYSICIAN RESPONSE: Based on the clinical findings in the record, please respond to the query above on this document as an addendum. Physician Response: Physician Response 1 If you have questions please contact: Phonograph Needle Tip Maker: Ext: Thank you for your time and cooperation. Clinical Patent Chemist/Phonograph Needle Tip Maker This is a permanent part of the medical record MARSHAL VELEZ May 30, 2022 17:08 CURTIS MOSLEY DO May 30, 2022 18:17
[2022-05-31] MEDS: ALPRAZolam 0.25 MG (XANAX) TAB PO PRN ×6 (00:19→20:18)
[2022-05-31] MEDS: MEROPENEM 1,000 MG in NS (IVPB) 100 ML IV SCH ×3 (01:35→18:25)
[2022-05-31] MEDS: RT-ALBUTEROL/IPRATROPIUM 3 ML (DUONEB) VIAL INH SCH ×6 (03:47→22:46)
[2022-05-31 04:30] LABS: BASOPHILS % (AUTO) 0 % (0-10); EOSINOPHILS % (AUTO) 0 % (0-10); HEMATOCRIT 36 % (40-54); HEMOGLOBIN 11.3 g/dL (13.3-17.7); LYMPHOCYTES # (AUTO) 0.7 10^3/uL (1.0-4.0); LYMPHOCYTES % (AUTO) 10 % (12-44); MEAN CORPUSCULAR HEMOGLOBIN 28 pg (25-34); MEAN CORPUSCULAR HGB CONC 31 g/dL (32-36); MEAN CORPUSCULAR VOLUME 89 fL (80-99); MEAN PLATELET VOLUME 10.5 fL (9.0-12.2); MONOCYTES # (AUTO) 0.4 10^3/uL (0.0-1.0); MONOCYTES % (AUTO) 5 % (0-12); NEUTROPHILS # (AUTO) 5.3 10^3/uL (1.8-7.8); NEUTROPHILS % (AUTO) 76 % (42-75); PLATELET COUNT 237 10^3/uL (130-400)
[2022-05-31 04:47] LABS: ALBUMIN 3.8 GM/DL (3.2-4.5); BILIRUBIN,TOTAL 0.4 MG/DL (0.1-1.0); CALCIUM 9.1 MG/DL (8.5-10.1); CREATININE SERUM 1.01 MG/DL (0.60-1.30); MAGNESIUM 2.2 MG/DL (1.6-2.4); POTASSIUM 3.5 MMOL/L (3.6-5.0); TOTAL PROTEIN 6.3 GM/DL (6.4-8.2)
[2022-05-31] MEDS ORDERED: NS IV 500 ML 500 ML IV PRN (05:45)
[2022-05-31] MEDS: POTASSIUM CL 10MEQ/50ML IVPB 50 ML IV SCH (05:59)
[2022-05-31] MEDS: MAGNESIUM 1 GM/100 ML IVPB 100 ML IV SCH (05:59)
[2022-05-31] MEDS: KCL 20 MEQ TAB (K-DUR) PO SCH (05:59)
[2022-05-31] MEDS: methylPREDNISolone 40 MG/ML (Solu-MEDROL) VIAL IV SCH ×2 (08:08→20:18)
[2022-05-31] MEDS: NICOTINE 21 MG (NICODERM) PATCH TD SCH (08:08)
[2022-05-31] MEDS: SENNOSIDES 8.6 MG (SENOKOT) TAB PO SCH ×2 (08:09→20:18)
[2022-05-31] MEDS: dilTIAZem120 MG (CARDIZEM CD) CAP PO SCH (08:09)
[2022-05-31] MEDS: FUROSEMIDE 40 MG/4 ML INJ (LASIX) IVP SCH (08:09)
[2022-05-31] MEDS: ENOXAPARIN 40 MG/0.4 ML (LOVENOX) SYR SC SCH (08:10)
[2022-05-31] MEDS: DOCUSATE SODIUM 100 MG (COLACE) CAP PO SCH ×2 (08:10→20:18)
[2022-05-31] MEDS: AMIODARONE 200 MG (CORDARONE) TAB PO SCH (08:10)
--- NOTE | 2022-05-31 08:13 | Diagnostic Imaging Report ---
EXAMINATION: Chest 1 view HISTORY: Intubated COMPARISON: 09/08/2022 FINDINGS: Small right pleural effusion. No pneumothorax. No edema or pneumonia. Heart size is stable. IMPRESSION: 1. Stable small right effusion. Dictated by: Dictated on workstation # [id number]
--- NOTE | 2022-05-31 09:02 | Cardiology Progress Note ---
Progress Note-Cardiology Events since last exam Date Seen by Provider: May 31, 2022 Time Seen by Provider: 09:00 Events since last exam I am following him due to heart failure and paroxysmal atrial fibrillation. Yesterday he was up walking in the laws with assistance. He got quite short of breath and had to go back to his room after he walked about 15 feet. This morning he was sitting up on the edge of the bed. He appeared less short of breath but states he still feels more short of breath than his baseline. He denies chest discomfort, palpitations, syncope, or ankle edema. Certain portions of this document may have been dictated utilizing voice recognition technology. Inherent to this technology, typographical and grammatical errors may exist. As much as I am diligent to identify and correct these mistakes, some errors may remain in the document. Vitals Last set of Vitals Signs Vital Signs 05/26/22 05/31/22 05/31/22 05/31/22 05/31/22 09:35 12:00 14:00 14:21 14:35 Temp 36.3 Pulse 89 Resp 20 B/P (MAP) 152/106 Pulse Ox 95 O2 Delivery High Flow N/C O2 Flow Rate 3.00 FiO2 50 Labs Labs Laboratory Tests 05/31/22 04:15 Exam Vital Signs Vital Signs Date Time Temp Pulse Resp B/P (MAP) Pulse Ox O2 Delivery O2 Flow Rate FiO2 05/31/22 14:35 High Flow N/C 3.00 05/31/22 14:21 95 05/31/22 14:00 89 20 152/106 05/31/22 12:00 36.3 05/26/22 09:35 50 Physical Exam General: Alert. No acute distress. He appears chronically ill. He is wearing oxygen by nasal cannula. Eye: No xanthelasma. HENT: Normocephalic. Neck: Jugular venous pressure does not appear elevated. Respiratory: Lungs are clear to auscultation. Respirations are non-labored. Breath sounds are equal. Symmetrical chest wall expansion. Cardiovascular: Normal rate. Regular rhythm. Distant S1/S2. No murmur. No gallop. No edema. Gastrointestinal: Soft. Normal bowel sounds. Skin: Warm. Dry. Neurologic: Alert and oriented to person, place, time. Cranial nerves 3-11 grossly intact. Psychiatric: Cooperative. Appropriate mood & affect. Labs Laboratory Tests Test 05/31/22 04:15 Range/Units White Blood Count 7.0 4.3-11.0 10^3/uL Red Blood Count 4.07 L 4.30-5.52 10^6/uL Hemoglobin 11.3 L 13.3-17.7 g/dL Hematocrit 36 L 40-54 % Mean Corpuscular Volume 89 80-99 fL Mean Corpuscular Hemoglobin 28 25-34 pg Mean Corpuscular Hemoglobin Concent 31 L 32-36 g/dL Red Cell Distribution Width 16.2 H 10.0-14.5 % Platelet Count 237 130-400 10^3/uL Mean Platelet Volume 10.5 9.0-12.2 fL Immature Granulocyte % (Auto) 8 % Neutrophils (%) (Auto) 76 H 42-75 % Lymphocytes (%) (Auto) 10 L 12-44 % Monocytes (%) (Auto) 5 0-12 % Eosinophils (%) (Auto) 0 0-10 % Basophils (%) (Auto) 0 0-10 % Neutrophils # (Auto) 5.3 1.8-7.8 10^3/uL Lymphocytes # (Auto) 0.7 L 1.0-4.0 10^3/uL Monocytes # (Auto) 0.4 0.0-1.0 10^3/uL Eosinophils # (Auto) 0.0 0.0-0.3 10^3/uL Basophils # (Auto) 0.0 0.0-0.1 10^3/uL Immature Granulocyte # (Auto) 0.6 H 0.0-0.1 10^3/uL Sodium Level 143 135-145 MMOL/L Potassium Level 3.5 L 3.6-5.0 MMOL/L Chloride Level 105 98-107 MMOL/L Carbon Dioxide Level 24 21-32 MMOL/L Anion Gap 14 5-14 MMOL/L Blood Urea Nitrogen 34 H 7-18 MG/DL Creatinine 1.01 0.60-1.30 MG/DL Estimat Glomerular Filtration Rate 82 BUN/Creatinine Ratio 34 Glucose Level 168 H 70-105 MG/DL Calcium Level 9.1 8.5-10.1 MG/DL Corrected Calcium 9.3 8.5-10.1 MG/DL Magnesium Level 2.2 1.6-2.4 MG/DL Total Bilirubin 0.4 0.1-1.0 MG/DL Aspartate Amino Transf (AST/SGOT) 25 5-34 U/L Alanine Aminotransferase (ALT/SGPT) 59 H 0-55 U/L Alkaline Phosphatase 77 40-136 U/L Total Protein 6.3 L 6.4-8.2 GM/DL Albumin 3.8 3.2-4.5 GM/DL Diagnosis/Problems Diagnosis/Problems (1) Acute on chronic heart failure with preserved ejection fraction (HFpEF) Status: Acute Assessment & Plan: His BNP was slightly elevated and chest x-ray has been con sistent with pulmonary edema. His echocardiogram from January 2022 showed a normal ejection fraction. I gave him another dose of intravenous furosemide on 05/28. He is currently ordered for daily IV furosemide. We will need to watch his renal function closely. (2) Paroxysmal atrial fibrillation Status: Chronic Assessment & Plan: He remains in sinus rhythm on amiodarone. I decreased the amiodarone to 200 mg once daily at the time of admission. This was supposed to be tapered as an outpatient but then he got sick and missed his follow-up appointment. I do not have him on oral anticoagulation because I felt the previous atrial fibrillation was brought on by pneumonia during a hospitalization earlier this year. My plan is to eventually titrate the amiodarone to off. This will be arranged as an outpatient. (3) Ventricular tachycardia Assessment & Plan: He also had some possible ventricular tachycardia during his previous hospitalization earlier this year. He has not been having any significant ventricular arrhythmias during this hospitalization. At some point I was planning on an outpatient ischemic evaluation but he was missing his appointments as outlined above. (4) Primary hypertension Status: Chronic Assessment & Plan: Continue diltiazem which she has been taking for hypertension and the previous atrial fibrillation. His blood pressures had been running on the low side but are now trending upwards. I will increase his dose of diltiazem. (5) Pulmonary hypertension Status: Chronic Assessment & Plan: His echocardiogram from earlier this year showed severe pulmonary hypertension. This is most likely due to his underlying chronic obstructive pulmonary disease. This will need to be followed longitudinally. He may benefit from home oxygen if he does not already have this in place. (6) Mixed hyperlipidemia Status: Chronic Assessment & Plan: Continue atorvastatin. (7) Acute on chronic respiratory failure with hypoxemia Assessment & Plan: Most likely due to an exacerbation of his chronic obstructive pulmonary disease as well as some superimposed heart failure. He does not seem to be making much progress. We may need to suggest palliative care if he does not make any improvement in the next few days. CAROL LEWIS JR, MD May 31, 2022 09:02
--- NOTE | 2022-05-31 09:17 | Physical Therapy Progress Note ---
Therapy Progress Note Patient declined PT stating," I need another day in bed to get stronger." PT attempted to educated patient on importance of OOB activity, however, patient continued to decline. 1 ref DOUGLAS WILEY PT May 31, 2022 09:17
--- NOTE | 2022-05-31 09:41 | Tele-ICU Progress Note ---
Subjective Date Seen by a Provider: May 31, 2022 Time Seen by a Provider: 09:41 Subjective/Events-last exam (Tele-ICU Physician , Progress Note ) Available chart/ vitals / labs / Images reviewed Video assessment done using teleICU camera, rest of exam as per RN Discussed with RN Events overnight : Afebrile hemodynamically stable Respiratory - 4L I/O =even Drips: off Pressors- no A/P PAF which is under control on po amiodarone, now in sinus, also on po cardizem Severe pulm HTN on echo probably from COPD but there may be also a component of ASHLEIGH-but thinks he may have it, and should be tested ? COPD - Medrol- decrtase dose today , add IS , albuterol, IV Lasix- to decrease steroids tomorrow Empiric abx - merrem Lines : periph , (Central Line Necessity Reviewed) Vanessa: void OG: Nutrition: Po Analgesia: Anxiety/ delirium VTE Prophylaxis: promise 40 q12 Stress Ulcer Prophylaxis: Po Plans in collaboration with bedside consultants and IM MDs. Discussed with RN to reach out if any questions or concerns A total of 20 minutes of critical care time was devoted to this patient today, required to treat and/or prevent further deterioration of critical care condition ( as above ) . Sepsis Event Evaluation Height, Weight, BMI Height: '" Weight: lbs. oz. kg; 33.24 BMI Method: Exam Exam Patient acknowledged, consented, and participated in this virtual visit which was conducted using real time audio/video Vital Signs Date Time Temp Pulse Resp B/P (MAP) Pulse Ox O2 Delivery O2 Flow Rate FiO2 05/31/22 09:00 101 20 155/103 97 High Flow N/C 4.00 05/31/22 08:00 98 20 136/91 96 High Flow N/C 4.00 05/31/22 07:49 36.0 High Flow N/C 4.00 05/31/22 07:15 High Flow N/C 4.00 05/31/22 07:11 96 High Flow N/C 5.00 05/31/22 07:00 101 05/31/22 07:00 98 22 143/72 95 High Flow N/C 5.00 05/31/22 06:00 104 24 132/74 95 High Flow N/C 5.00 8/12/22 05:00 105 21 137/70 95 High Flow N/C 5.00 05/31/22 04:00 94 High Flow N/C 5.00 05/31/22 04:00 18 133/71 94 High Flow N/C 5.00 05/31/22 03:47 97 High Flow N/C 4.00 05/31/22 03:00 87 14 98/61 94 High Flow N/C 5.00 05/31/22 02:00 36.3 89 16 90/47 93 High Flow N/C 5.00 05/31/22 01:00 95 05/31/22 01:00 94 17 120/66 93 High Flow N/C 5.00 05/31/22 00:00 98 17 150/103 95 High Flow N/C 5.00 05/30/22 23:59 96 High Flow N/C 5.00 05/30/22 23:00 103 22 131/70 94 High Flow N/C 5.00 05/30/22 22:00 112 17 101/85 97 High Flow N/C 5.00 05/30/22 21:53 97 High Flow N/C 5.00 05/30/22 21:00 102 17 85/50 96 High Flow N/C 5.00 05/30/22 20:00 101 14 138/81 96 High Flow N/C 5.00 05/30/22 20:00 94 High Flow N/C 5.00 05/30/22 19:00 106 05/30/22 19:00 108 28 147/104 95 High Flow N/C 5.00 05/30/22 18:43 98 High Flow N/C 5.00 05/30/22 18:00 111 25 146/101 96 High Flow N/C 5.00 05/30/22 17:00 96 22 135/74 97 High Flow N/C 5.00 05/30/22 16:00 96 High Flow N/C 5.00 05/30/22 16:00 96 20 111/61 97 High Flow N/C 5.00 05/30/22 16:00 36.4 05/30/22 15:00 97 22 127/44 94 High Flow N/C 5.00 05/30/22 14:35 94 High Flow N/C 4.00 05/30/22 14:00 105 24 132/88 94 High Flow N/C 5.00 05/30/22 13:00 98 05/30/22 13:00 98 18 129/72 95 High Flow N/C 5.00 05/30/22 12:00 94 24 129/67 90 High Flow N/C 5.00 05/30/22 12:00 96 High Flow N/C 5.00 05/30/22 12:00 36.8 05/30/22 10:41 94 High Flow N/C 4.00 I & O 05/31/22 07:00 Intake Total 1625 ml Output Total 2200 ml Balance -575 ml Height & Weight Height: '" Weight: lbs. oz. kg; 33.24 BMI Method: General Appearance: Anxious, Mild Distress HEENT: PERRL/EOMI, Normal ENT Inspection, Pharynx Normal, Moist Mucous Membranes Neck: Non Tender, Supple Respiratory: Accessory Muscle Use, Wheezing (diffuse) Cardiovascular: No Murmur, Normal Peripheral Pulses, Tachycardia Capillary Refill: Less Than 3 Seconds Peripheral Pulses: 2+ Dorsalis Pedis (R), 2+ Left Dors-Pedis (L) (See free text.) Gastrointestinal: normal bowel sounds, non tender, soft Extremity: Non Tender, No Calf Tenderness Neurologic/Psychiatric: Alert, Oriented x3 Skin: Normal Color, Warm/Dry Lymphatic: No Adenopathy Results Lab Laboratory Tests 05/30/22 04:15 05/31/22 04:15 Assessment/Plan Assessment/Plan 1 IGNACIO ALDRICH MD May 31, 2022 09:41
[2022-05-31] MEDS ORDERED: KCL 20 MEQ TAB (K-DUR) PO ONE (09:45)
--- NOTE | 2022-05-31 11:28 | Progress Note - Hospitalist ---
MEL FLETCHER 05/31/22 1128: Subjective HPI/CC On Admission CC: AECOPD with acute on chronic respiratory failure HPI: This is a 66yoWM known to me from prior respiratory failure s/p long ventilator course before extubated and ultimately DC home 1 week later who apparently started smoking when he arrived home after last critical illness admit who quit smoking 4 weeks ago after he had COVID received Paxlovid but he saw the [facility] who placed him on Levaquin and Prednisone but his dyspnea worsened and he arrived in resp failure requiring biPAP. He has severe COPD and will be at high risk for re-intubation. Dr Pugh consulted. Subjective/Events-last exam Audie Gonzalez is a 66y/o M who is being seen for follow up for acute on chronic respiratory failure. States that he feels slightly better today than he did yesterday. Still having SOB and a cough. States that he did get up and walk some yesterday but became winded quickly. Says that breathing requires increased effort from his normal. Review of Systems General: No Chills; Fatigue HEENT: Head Aches; No Visual Changes Pulmonary: Dyspnea, Cough Cardiovascular: No: Chest Pain, Palpitations Gastrointestinal: No: Nausea, Vomiting, Abdominal Pain Genitourinary: No Dysuria, No Frequency Musculoskeletal: No: neck pain, back pain Neurological: Weakness; No: Numbness Objective Exam Vital Signs Vital Signs Date Time Temp Pulse Resp B/P (MAP) Pulse Ox O2 Delivery O2 Flow Rate FiO2 05/31/22 11:00 101 24 129/103 96 High Flow N/C 4.00 05/31/22 07:49 36.0 05/26/22 09:35 50 Capillary Refill : Less Than 3 Seconds General Appearance: No Apparent Distress, WD/WN Neck: Non Tender, Supple Respiratory: No Respiratory Distress, Wheezing (diffuse) Cardiovascular: No Murmur, Normal Peripheral Pulses, Tachycardia Gastrointestinal: Non Tender, Soft Extremity: Normal Capillary Refill, Non Tender, No Calf Tenderness Neurologic/Psychiatric: Alert, Oriented x3 Lymphatic: No Adenopathy Results/Procedures Lab Laboratory Tests 05/31/22 04:15 Patient resulted labs reviewed. Assessment/Plan Assessment and Plan Assess & Plan/Chief Complaint Acute on chronic respiratory failure requiring biPAP Severe COPD Heavy smoking history quit 4 weeks ago Bacteremia HTN AF HLP RA Chronic pain Plan: BiPAP as needed Supplemental O2 as needed Solu-medrol decreased to 60mg Q12h Blood culture grew branching, gram positive rods, meropenum for 6 days CXR done yesterday showed new right basilar infiltrates, covered by meropenum Pain control Move to cardiac step down SHERRI MOSLEY DO 05/31/225: Subjective HPI/CC On Admission Date Seen by Provider: May 31, 2022 Time Seen by Provider: 12:00 Subjective/Events-last exam Pt is doing about the same Lungs are still very weak BiPAP needed at times High risk for intubation Objective Exam General Appearance: WD/WN, Anxious, Chronically ill, Mild Distress Respiratory: Accessory Muscle Use, Decreased Breath Sounds, Wheezing (diffuse) Cardiovascular: Regular Rate, Rhythm Neurologic/Psychiatric: Alert, Oriented x3 Supervisory-Addendum Brief Verification & Attestation Participated in pt care: history, MDM, physical Personally performed: exam, history, MDM, supervision of care Care discussed with: Medical Student Procedures: n/a Results interpretation: Verified all documentation Verification and Attestation of Medical Student E/M Service A medical student performed and documented this service in my presence. I reviewed and verified all information documented by the medical student and made modifications to such information, when appropriate. I personally performed the physical exam and medical decision making. Sherri Mosley, May 31, 2022,21:54 MEL FLETCHER May 31, 2022 11:28 SHERRI MOSLEY DO May 31, 2022 21:55
[2022-05-31] MEDS ORDERED: dilTIAZem120 MG (CARDIZEM CD) CAP PO ONE (14:45)
[2022-05-31] MEDS ORDERED: MEROPENEM 1000 MG (MERREM) VIAL IV ONE (18:22)
[2022-06-01] MEDS: ALPRAZolam 0.25 MG (XANAX) TAB PO PRN ×6 (00:01→20:01)
[2022-06-01] MEDS: RT-ALBUTEROL/IPRATROPIUM 3 ML (DUONEB) VIAL INH SCH ×6 (02:21→23:06)
[2022-06-01] MEDS: MEROPENEM 1,000 MG in NS (IVPB) 100 ML IV SCH ×3 (02:39→18:50)
[2022-06-01 05:10] LABS: BASOPHILS % (AUTO) 1 % (0-10); EOSINOPHILS % (AUTO) 0 % (0-10); HEMATOCRIT 37 % (40-54); HEMOGLOBIN 11.4 g/dL (13.3-17.7); LYMPHOCYTES # (AUTO) 0.8 10^3/uL (1.0-4.0); LYMPHOCYTES % (AUTO) 10 % (12-44); MEAN CORPUSCULAR HEMOGLOBIN 28 pg (25-34); MEAN CORPUSCULAR HGB CONC 31 g/dL (32-36); MEAN CORPUSCULAR VOLUME 90 fL (80-99); MEAN PLATELET VOLUME 10.1 fL (9.0-12.2); MONOCYTES # (AUTO) 0.5 10^3/uL (0.0-1.0); MONOCYTES % (AUTO) 7 % (0-12); NEUTROPHILS # (AUTO) 5.9 10^3/uL (1.8-7.8); NEUTROPHILS % (AUTO) 74 % (42-75); PLATELET COUNT 239 10^3/uL (130-400); WHITE BLOOD COUNT 7.9 10^3/uL (4.3-11.0)
[2022-06-01 05:30] LABS: ALBUMIN 3.8 GM/DL (3.2-4.5); BILIRUBIN,TOTAL 0.3 MG/DL (0.1-1.0); CREATININE SERUM 0.86 MG/DL (0.60-1.30); MAGNESIUM 2.1 MG/DL (1.6-2.4); POTASSIUM 3.9 MMOL/L (3.6-5.0); TOTAL PROTEIN 6.2 GM/DL (6.4-8.2)
[2022-06-01] MEDS: KCL 20 MEQ TAB (K-DUR) PO SCH (06:09)
[2022-06-01] MEDS: MAGNESIUM 1 GM/100 ML IVPB 100 ML IV SCH (06:09)
[2022-06-01] MEDS: POTASSIUM CL 10MEQ/50ML IVPB 50 ML IV SCH (06:09)
--- NOTE | 2022-06-01 07:47 | Diagnostic Imaging Report ---
EXAMINATION: Chest 1 view HISTORY: Follow-up, respiratory failure COMPARISON: 05/31/2022 FINDINGS: The lungs are clear without edema or pneumonia. No pleural effusion or pneumothorax. Heart size is normal. IMPRESSION: 1. Clear lungs. Dictated by: Dictated on workstation # [id number]
[2022-06-01] MEDS: FUROSEMIDE 40 MG/4 ML INJ (LASIX) IVP SCH (08:19)
[2022-06-01] MEDS: AMIODARONE 200 MG (CORDARONE) TAB PO SCH (08:19)
[2022-06-01] MEDS: NICOTINE 21 MG (NICODERM) PATCH TD SCH (08:19)
[2022-06-01] MEDS: dilTIAZem120 MG (CARDIZEM CD) CAP PO SCH (08:19)
[2022-06-01] MEDS: ENOXAPARIN 40 MG/0.4 ML (LOVENOX) SYR SC SCH (08:20)
[2022-06-01] MEDS: DOCUSATE SODIUM 100 MG (COLACE) CAP PO SCH ×2 (08:20→20:26)
[2022-06-01] MEDS: SENNOSIDES 8.6 MG (SENOKOT) TAB PO SCH ×2 (08:20→20:27)
[2022-06-01] MEDS: methylPREDNISolone 40 MG/ML (Solu-MEDROL) VIAL IV SCH ×2 (08:20→20:39)
--- NOTE | 2022-06-01 08:55 | Tele-ICU Progress Note ---
Subjective Date Seen by a Provider: Jun 01, 2022 Time Seen by a Provider: 08:54 Subjective/Events-last exam (Tele-ICU Physician , consultation) Available chart/ vitals / labs / Images reviewed H&P is from ER notes Patient's information available about PMH, allergy reviewed in EMR. ROS as per chart and RN report Video assessment done using teleICU camera, rest of exam as per RN Discussed with RN. Hospital course. Patient complains of shortness of breath with exertion. Currently he is on high flow nasal cannula 3 L. He is taking clear liquids. No fever Sepsis Event Evaluation Height, Weight, BMI Height: '" Weight: lbs. oz. kg; 33.24 BMI Method: Exam Exam Patient acknowledged, consented, and participated in this virtual visit which was conducted using real time audio/video Vital Signs Date Time Temp Pulse Resp B/P (MAP) Pulse Ox O2 Delivery O2 Flow Rate FiO2 06/01/22 08:00 87 16 94 High Flow N/C 5.00 06/01/22 08:00 36.1 06/01/22 07:10 96 High Flow N/C 3.00 06/01/22 07:00 79 06/01/22 07:00 82 24 96 High Flow N/C 5.00 06/01/22 06:00 90 20 145/95 96 High Flow N/C 5.00 06/01/22 05:00 85 16 95 High Flow N/C 5.00 06/01/22 04:00 94 High Flow N/C 5.00 06/01/22 04:00 87 19 134/96 94 High Flow N/C 5.00 06/01/22 03:58 36.0 06/01/22 03:00 68 12 101/71 93 High Flow N/C 5.00 06/01/22 02:22 97 High Flow N/C 3.00 06/01/22 02:00 77 19 114/67 95 High Flow N/C 5.00 06/01/22 01:00 79 06/01/22 01:00 87 21 150/123 93 High Flow N/C 5.00 06/01/22 00:00 95 20 136/84 91 High Flow N/C 5.00 05/31/22 23:59 94 High Flow N/C 5.00 05/31/22 23:33 36.0 05/31/22 23:00 95 21 93 High Flow N/C 5.00 05/31/22 22:46 High Flow N/C 05/31/22 22:00 81 17 110/75 96 High Flow N/C 5.00 05/31/22 21:00 81 14 109/61 94 High Flow N/C 5.00 05/31/22 20:00 94 High Flow N/C 5.00 05/31/22 20:00 104 23 132/83 96 High Flow N/C 5.00 05/31/22 20:00 36.5 05/31/22 19:00 96 05/31/22 19:00 96 24 124/81 100 High Flow N/C 5.00 05/31/22 18:57 98 High Flow N/C 3.00 05/31/22 18:00 85 16 132/68 96 High Flow N/C 4.00 05/31/22 17:00 81 15 126/71 96 High Flow N/C 4.00 05/31/22 16:15 94 High Flow N/C 5.00 05/31/22 16:00 36.3 05/31/22 16:00 88 18 139/85 98 High Flow N/C 4.00 05/31/22 15:00 90 28 136/104 95 High Flow N/C 4.00 05/31/22 14:35 High Flow N/C 3.00 05/31/22 14:21 95 High Flow N/C 4.00 05/31/22 14:00 89 20 152/106 95 High Flow N/C 4.00 05/31/22 13:00 90 20 154/74 96 High Flow N/C 4.00 05/31/22 12:23 90 05/31/22 12:15 97 High Flow N/C 5.00 05/31/22 12:00 90 15 156/80 91 High Flow N/C 4.00 05/31/22 12:00 36.3 05/31/22 11:00 101 24 129/103 96 High Flow N/C 4.00 05/31/22 10:00 101 18 134/74 94 High Flow N/C 4.00 05/31/22 09:00 101 20 155/103 97 High Flow N/C 4.00 I & O 06/01/22 07:00 Intake Total 2640 ml Output Total 3425 ml Balance -785 ml Height & Weight Height: '" Weight: lbs. oz. kg; 33.24 BMI Method: General Appearance: WD/WN, Anxious, Chronically ill, Mild Distress HEENT: PERRL/EOMI, Normal ENT Inspection, Pharynx Normal, Moist Mucous Membranes Neck: Non Tender, Supple Respiratory: Accessory Muscle Use, Decreased Breath Sounds, Wheezing (diffuse) Cardiovascular: Regular Rate, Rhythm Capillary Refill: Less Than 3 Seconds Peripheral Pulses: 2+ Dorsalis Pedis (R), 2+ Left Dors-Pedis (L) (See free text.) Gastrointestinal: normal bowel sounds, non tender, soft Extremity: Normal Capillary Refill, Non Tender, No Calf Tenderness Neurologic/Psychiatric: Alert, Oriented x3 Skin: Normal Color, Warm/Dry Lymphatic: No Adenopathy Results Lab Laboratory Tests 05/31/22 04:15 06/01/22 04:50 Assessment/Plan Assessment/Plan 1. Paroxysmal atrial fibrillation now converted to sinus rhythm on oral amiodarone 1 and oral Cardizem. 2. Severe pulmonary hypertension on echo probably from COPD and the possibility of a component of ASHLEIGH which should be tested as an outpatient 3. COPD exacerbation. Medrol to be decreased. Continue incentive spirometry Albuterol, IV Lasix. We will decrease steroids today Empiric antibiotics Merrem. VTE prophylaxis Lovenox 40 mg SQ every 12 hours Ulcer prophylaxis p.o. Pepcid Plan in collaboration with bedside consultants and IM MDs. Discussed with the RN to reach out if any questions or concern. Critical Care: Critically Ill Patient Time spent with patient (mins): 15 ELIZABETH RING MD Jun 01, 2022 08:55
[2022-06-01] MEDS ORDERED: FAMOTIDINE 20 MG (PEPCID) TABLET PO PRN (10:00)
--- NOTE | 2022-06-01 10:40 | Physical Therapy Daily Note ---
PT Daily Note-Current Subjective Pt in bed, agreeable. Reports "I am very depressed. If it weren't for my kids, I would just want to , I am tired of fighting. They took that medicine (morphine) away that was helping me get better". Nursing notified of Pt statements regarding depression. Pt reported pain but did not rate. Mental Status Patient Orientation: Person, Place, Time, Situation Attachments: Oxygen, IV Transfers SCALE: Activities may be completed with or without assistive devices. 2-Iehuiaigkp-spojnjx completes the activity by him/herself with no assistance from a helper. 5-Set-up or Clean-up Assistance-helper sets up or cleans up; patient completes activity. [place] assists only prior to or following the activity. 4-Supervision or Touching Assistance-helper provides verbal cues and/or touching/steadying and/or contact guard assistance as patient completes activity. Assistance may be provided throughout the activity or intermittently. 3-Partial/Moderate Assistance-helper does LESS THAN HALF the effort. [place] lifts, holds or supports trunk or limbs, but provides less than half the effort. 2-Substantial/Maximal Assistance-helper does MORE THAN HALF the effort. [place] lifts or holds trunk or limbs and provides more than half the effort. 2-Xbeovtekw-pbzues does ALL the effort. Patient does none of the effort to complete the activity. Or, the assistance of 2 or more helpers is required for the patient to complete the activity. If activity was not attempted, code reason: 7-Patient Refused. 9-Not Applicable-not attempted and the patient did not perform the activity before the current illness, exacerbation or injury. 10-Not Attempted due to Environmental Limitations-(lack of equipment, weather restraints, etc.). 88-Not Attempted due to Medical Conditions or Safety Concerns. Roll Left & Right (QC): 6 Lying to Sitting/Side of Bed(Q: 6 Sit to Stand (QC): 6 Chair/Ohp-pa-Yxqno Xfer(QC): 4 Pt requested PT step out while he utilized urinal. Pt then got OOB (I) and was standing at EOB upon PT re-entry. Pt stood for about 3' for dependent luanne-care. Incontinent of BM and Pt unaware. Weight Bearing Right Lower Extremity: Right Weight Bearing/Tolerated Left Lower Extremity: Left Weight Bearing/Tolerated Gait Training Does the Patient Walk?: No and Walking Goal IS indicated Treatments Transfer to chair. Pt up in chair with O2 in situ, needs met. Spouse returned to room and nursing to room. Assessment Current Status: Fair Progress Pt tolerated well despite c/o pain. Able to get OOB without assist. PT [facility] Goals Library Serials Assistant Goals PT [facility] Goals Time Frame: Jun 03, 2022 Roll Left & Right (QC): 6 Sit to Lying (QC): 6 Lying-Sitting on Side/Bed(QC): 6 Sit to Stand (QC): 6 Chair/Pxu-dh-Bjsxg Xfer(QC): 6 Walk 10 feet (QC): 6 Walk 50ft with 2 Turns (QC): 6 Walk 150 ft (QC): 6 PT Plan Problem List Problem List: Activity Tolerance, Functional Strength, Safety, Balance, Gait, Transfer, Bed Mobility Treatment/Plan Treatment Plan: Continue Plan of Care Treatment Plan: Education, Functional Activity Yvette, Functional Strength, Gait, Safety, Therapeutic Exercise, Transfers Treatment Duration: Jun 03, 2022 Frequency: 6 times per week Estimated Hrs Per Day: .25 hour per day Patient and/or Family Agrees t: Yes Time/GCodes Time In: 912 Time Out: 930 Total Billed Treatment Time: 18 Total Billed Treatment 1, FA x 18' MINDI MON DPSari Jun 01, 2022 10:40
--- NOTE | 2022-06-01 11:13 | Cardiology Progress Note ---
Subjective Date Seen by Provider: Jun 01, 2022 Time Seen by Provider: 11:09 Subjective/Events-last exam Patient was seen at bedside, still complaining of fatigue and loss of energy Shortness of breath and generalized body ache Review of Systems General: No Chills, No Night Sweats; Fatigue; No Malaise, No Appetite, No Other HEENT: No Head Aches, No Visual Changes, No Eye Pain, No Ear Pain, No Dysphasia, No Sinus Congestion, No Post Nasal Drip, No Sore Throat, No Other Pulmonary: Dyspnea; No Cough, No Pleuritic Chest Pain, No Other Cardiovascular: Edema; No: Chest Pain, Palpitations, Orthopnea, Paroxysmal Noc. Dyspnea, Lt Headedness, Other Objective-Cardiology Exam Last Set of Vital Signs Vital Signs 05/26/22 06/01/22 06/01/22 06/01/22 06/01/22 09:35 08:00 09:00 10:00 10:36 Temp 36.1 Pulse 91 Resp 16 B/P (MAP) 132/74 Pulse Ox 96 O2 Delivery High Flow N/C O2 Flow Rate 3.00 FiO2 50 I&O Intake and Output 06/01/22 00:00 Intake Total 2690 ml Output Total 3525 ml Balance -835 ml Intake Oral 2490 ml IV Total 200 ml Output Urine Total 3525 ml # Bowel Movements 1 General: Alert, Cooperative HEENT: Atraumatic, PERRLA Neck: Supple, No JVD, No Thyromegaly Lungs: Clear to Auscultation, Normal Air Movement, Other Heart: Regular Rate, Normal S1, Normal S2, No Murmurs Abdomen: Normal Bowel Sounds, Soft, No Tenderness, No Hepatosplenomegaly, No Masses Extremities: No Clubbing, No Cyanosis, Normal Pulses, No Tenderness/Swelling, Other (Peripheral edema) Skin: No Rashes, No Breakdown, No Significant Lesion Neuro: Normal Speech, Normal Tone, Sensation Intact Psych/Mental Status: Mental Status NL, Mood NL Results Lab Laboratory Tests 06/01/22 04:50 A/P-Cardiology Admission Diagnosis Congestive heart failure, acute on chronic left ventricular diastolic dysfunction Hypertension Hyperlipidemia Paroxysmal atrial fibrillation Assessment/Plan Congestive heart failure, acute on chronic left ventricular diastolic dysfunc tion Responded to diuretics. Reporting improvement, continue to monitor Paroxysmal atrial fibrillation, currently in sinus rhythm on amiodarone. Tolerating current medication well. Continue to monitor Debility and generalized weakness. Receiving physical therapy, managed by medical team History of nonsustained ventricular tachycardia, No further ventricular tachycardia was detected during this admission. Hypertension, continue on current medication monitor blood pressure Hyperlipidemia, monitor lipids Status post acute respiratory failure, improving Chest x-ray showed clear lungs. TAWNY MORGAN MD Jun 01, 2022 11:13
--- NOTE | 2022-06-01 12:17 | Progress Note - Hospitalist ---
Subjective HPI/CC On Admission Date Seen by Provider: Jun 01, 2022 Time Seen by Provider: 12:00 CC: AECOPD with acute on chronic respiratory failure HPI: This is a 66yoWM known to me from prior respiratory failure s/p long ventilator course before extubated and ultimately DC home 1 week later who apparently started smoking when he arrived home after last critical illness admit who quit smoking 4 weeks ago after he had COVID received Paxlovid but he saw the Endless Belt Finisher who placed him on Levaquin and Prednisone but his dyspnea worsened and he arrived in resp failure requiring biPAP. He has severe COPD and will be at high risk for re-intubation. Dr Pugh consulted. Subjective/Events-last exam Patient extremely talkative with no difficulty with conversation but reporting dyspnea with minimal exertion. He reports chest wall abdominal pain from coughing so much but was able to take deep breaths without coughing today. He denied night sweats chills or fever. Objective Exam Vital Signs Vital Signs Date Time Temp Pulse Resp B/P (MAP) Pulse Ox O2 Delivery O2 Flow Rate FiO2 06/01/22 12:00 36.6 06/01/22 12:00 89 129/103 93 High Flow N/C 5.00 06/01/22 11:00 17 05/26/22 09:35 50 Capillary Refill : Less Than 3 Seconds General Appearance: No Apparent Distress Respiratory: No Accessory Muscle Use, No Respiratory Distress, Other (Mild expiratory wheezing throughout with coarse breath sounds no focal consolidative findings noted.) Cardiovascular: Regular Rate, Rhythm, No Edema, No Gallop, No JVD, No Murmur Gastrointestinal: Normal Bowel Sounds, No Organomegaly, No Pulsatile Mass, Non Tender, Soft Results/Procedures Lab Laboratory Tests 06/01/22 04:50 Patient resulted labs reviewed. Assessment/Plan Assessment and Plan Assess & Plan/Chief Complaint Acute on chronic respiratory failure requiring biPAP Severe COPD Heavy smoking history quit 4 weeks ago Bacteremia HTN AF HLP RA Chronic pain 06/01/2022: Patient appears to be improving although still reporting significant dyspnea on exertion continue current Solu-Medrol and IV antibiotics. Plan: BiPAP as needed Supplemental O2 as needed Solu-medrol decreased to 60mg Q12h Blood culture grew branching, gram positive rods, meropenum for 6 days CXR done yesterday showed new right basilar infiltrates, covered by meropenum Critical Care Critically Ill Patient CLAUDIA GLOVER MD Jun 01, 2022 12:16
[2022-06-02] MEDS: ALPRAZolam 0.25 MG (XANAX) TAB PO PRN ×6 (00:05→21:35)
[2022-06-02] MEDS: MEROPENEM 1,000 MG in NS (IVPB) 100 ML IV SCH ×3 (02:18→17:51)
[2022-06-02] MEDS: RT-ALBUTEROL/IPRATROPIUM 3 ML (DUONEB) VIAL INH SCH ×6 (03:17→22:43)
[2022-06-02 04:52] LABS: BASOPHILS % (AUTO) 1 % (0-10); EOSINOPHILS % (AUTO) 0 % (0-10); HEMATOCRIT 36 % (40-54); HEMOGLOBIN 11.3 g/dL (13.3-17.7); LYMPHOCYTES # (AUTO) 0.6 10^3/uL (1.0-4.0); LYMPHOCYTES % (AUTO) 8 % (12-44); MEAN CORPUSCULAR HEMOGLOBIN 28 pg (25-34); MEAN CORPUSCULAR HGB CONC 31 g/dL (32-36); MEAN CORPUSCULAR VOLUME 90 fL (80-99); MEAN PLATELET VOLUME 10.7 fL (9.0-12.2); MONOCYTES # (AUTO) 0.6 10^3/uL (0.0-1.0); MONOCYTES % (AUTO) 7 % (0-12); NEUTROPHILS # (AUTO) 6.2 10^3/uL (1.8-7.8); NEUTROPHILS % (AUTO) 76 % (42-75); PLATELET COUNT 218 10^3/uL (130-400); WHITE BLOOD COUNT 8.1 10^3/uL (4.3-11.0)
[2022-06-02 05:12] LABS: ALBUMIN 3.7 GM/DL (3.2-4.5); BILIRUBIN,TOTAL 0.3 MG/DL (0.1-1.0); CALCIUM 9.4 MG/DL (8.5-10.1); CREATININE SERUM 0.94 MG/DL (0.60-1.30); MAGNESIUM 2.6 MG/DL (1.6-2.4); POTASSIUM 4.4 MMOL/L (3.6-5.0); TOTAL PROTEIN 6.6 GM/DL (6.4-8.2)
[2022-06-02 05:38] LABS: ANISOCYTOSIS SLIGHT; BAND NEUTROPHILS 4 %; LYMPHOCYTES % (MANUAL) 6 %; METAMYELOCYTES % 5 %; MICROCYTOSIS SLIGHT; MONOCYTES % (MANUAL) 6 %; MYELOCYTES % 4 %; NEUTROPHILS % (MANUAL) 75 %
[2022-06-02] MEDS: POTASSIUM CL 10MEQ/50ML IVPB 50 ML IV SCH (05:51)
[2022-06-02] MEDS: MAGNESIUM 1 GM/100 ML IVPB 100 ML IV SCH (05:52)
[2022-06-02] MEDS: KCL 20 MEQ TAB (K-DUR) PO SCH (05:52)
[2022-06-02] MEDS: AMIODARONE 200 MG (CORDARONE) TAB PO SCH (09:10)
[2022-06-02] MEDS: SENNOSIDES 8.6 MG (SENOKOT) TAB PO SCH ×2 (09:10→19:27)
[2022-06-02] MEDS: dilTIAZem120 MG (CARDIZEM CD) CAP PO SCH (09:10)
[2022-06-02] MEDS: DOCUSATE SODIUM 100 MG (COLACE) CAP PO SCH ×2 (09:10→19:27)
[2022-06-02] MEDS: methylPREDNISolone 40 MG/ML (Solu-MEDROL) VIAL IV SCH ×2 (09:10→20:02)
[2022-06-02] MEDS: NICOTINE 21 MG (NICODERM) PATCH TD SCH (09:10)
[2022-06-02] MEDS: FUROSEMIDE 40 MG/4 ML INJ (LASIX) IVP SCH (09:10)
[2022-06-02] MEDS: ENOXAPARIN 40 MG/0.4 ML (LOVENOX) SYR SC SCH (09:11)
--- NOTE | 2022-06-02 09:43 | Cardiology Progress Note ---
Subjective Date Seen by Provider: Jun 02, 2022 Time Seen by Provider: 09:43 Subjective/Events-last exam Patient was seen at bedside, sitting comfortably, eating breakfast Still complaining of generalized fatigue and weakness and loss of energy Review of Systems General: No Chills, No Night Sweats; Fatigue; No Malaise, No Appetite, No Other HEENT: No Head Aches, No Visual Changes, No Eye Pain, No Ear Pain, No Dysphasia, No Sinus Congestion, No Post Nasal Drip, No Sore Throat, No Other Pulmonary: No Dyspnea, No Cough, No Pleuritic Chest Pain, No Other Cardiovascular: No: Chest Pain, Palpitations, Orthopnea, Paroxysmal Noc. Dyspnea, Edema, Lt Headedness, Other Objective-Cardiology Exam Last Set of Vital Signs Vital Signs 06/02/22 06/02/22 07:48 09:00 Temp 36.3 Pulse 82 Resp 11 B/P (MAP) 112/78 Pulse Ox 93 O2 Delivery High Flow N/C O2 Flow Rate 3.00 I&O Intake and Output 06/01/22 23:59 Intake Total 1840 ml Output Total 2450 ml Balance -610 ml Intake Oral 1840 ml Output Urine Total 2450 ml # Bowel Movements 1 General: Alert, Cooperative HEENT: Atraumatic, PERRLA Neck: Supple, No JVD, No Thyromegaly Lungs: Clear to Auscultation, Normal Air Movement, Other Heart: Regular Rate, Normal S1, Normal S2, No Murmurs Abdomen: Normal Bowel Sounds, Soft, No Tenderness, No Hepatosplenomegaly, No Masses Extremities: No Clubbing, No Cyanosis, Normal Pulses, No Tenderness/Swelling, Other Skin: No Rashes, No Breakdown, No Significant Lesion Neuro: Normal Speech, Normal Tone, Sensation Intact Psych/Mental Status: Mental Status NL, Mood NL Results Lab Laboratory Tests 06/02/22 04:30 A/P-Cardiology Admission Diagnosis Congestive heart failure, acute on chronic left ventricular diastolic dysfunction Hypertension Hyperlipidemia Paroxysmal atrial fibrillation Assessment/Plan Congestive heart failure, acute on chronic left ventricular diastolic dysfunction Responded to diuretics. Reporting improvement, continue to monitor Paroxysmal atrial fibrillation, currently in sinus rhythm on amiodarone. Tolerating current medication well. Continue to monitor Debility and generalized weakness. Receiving physical therapy, managed by medical team History of nonsustained ventricular tachycardia, No further ventricular tachycardia was detected during this admission. Hypertension, continue on current medication monitor blood pressure Hyperlipidemia, monitor lipids Status post acute respiratory failure, improving Chest x-ray showed clear lungs. TAWNY MORGAN MD Jun 02, 2022 09:43
--- NOTE | 2022-06-02 10:10 | Progress Note - Hospitalist ---
Subjective HPI/CC On Admission Date Seen by Provider: Jun 02, 2022 Time Seen by Provider: 08:30 CC: AECOPD with acute on chronic respiratory failure HPI: This is a 66yoWM known to me from prior respiratory failure s/p long ventilator course before extubated and ultimately DC home 1 week later who apparently started smoking when he arrived home after last critical illness admit who quit smoking 4 weeks ago after he had COVID received Paxlovid but he saw the Film Projector Operator who placed him on Levaquin and Prednisone but his dyspnea worsened and he arrived in resp failure requiring biPAP. He has severe COPD and will be at high risk for re-intubation. Dr Pugh consulted. Subjective/Events-last exam Patient continues to complain about pain from all the coughing he has done. He appears to be in no acute distress and again exhibits no coughing even with deep breathing during the interview. Nurse reports he has been taking Xanax and 10 mg oxycodone on a regular basis. Biggest other complaint is dyspnea on exertion he was sleeping through the night with reduction in oxygen need down to 3 L per nasal cannula. He has had minimal sputum production and cannot tell me if there is any purulence or not. Objective Exam Vital Signs Vital Signs Date Time Temp Pulse Resp B/P (MAP) Pulse Ox O2 Delivery O2 Flow Rate FiO2 06/02/22 09:00 82 11 112/78 93 High Flow N/C 3.00 06/02/22 07:48 36.3 Capillary Refill : Less Than 3 Seconds General Appearance: No Apparent Distress Respiratory: Other (Patient exhibits pursed lip breathing without the use of accessory muscles with diffuse mild end expiratory wheezing throughout breath sounds equal bilaterally no focal consolidative findings noted.) Cardiovascular: Regular Rate, Rhythm, No Edema, No Gallop, No JVD, No Murmur, Normal Peripheral Pulses Extremity: Normal Inspection, Normal Range of Motion, Non Tender, No Calf Tenderness, No Pedal Edema Results/Procedures Lab Laboratory Tests 06/02/22 04:30 Patient resulted labs reviewed. Assessment/Plan Assessment and Plan Assess & Plan/Chief Complaint Acute on chronic respiratory failure requiring biPAP Severe COPD Heavy smoking history quit 4 weeks ago Bacteremia HTN AF HLP RA Chronic pain 06/01/2022: Patient appears to be improving although still reporting significant dyspnea on exertion continue current Solu-Medrol and IV antibiotics. 06/02/2022. Patient appears to be a slow steroid responder clinically he is responding but still has significant dyspnea on exertion with known baseline severe COPD. Oxygen requirements are diminishing. Will transfer to floor continuing current ICU medication. Plan: BiPAP as needed Supplemental O2 as needed Solu-medrol decreased to 60mg Q12h Blood culture grew branching, gram positive rods, meropenum for 6 days CXR done yesterday showed new right basilar infiltrates, covered by meropenum Critical Care Critically Ill Patient CLAUDIA GLOVER MD Jun 02, 2022 10:10
[2022-06-02 16:38] VITALS: BP 137/69
[2022-06-02 19:39] VITALS: BP 135/67
[2022-06-02 23:55] VITALS: BP 128/77
[2022-06-03] MEDS: MEROPENEM 1,000 MG in NS (IVPB) 100 ML IV SCH (01:40)
[2022-06-03] MEDS: ALPRAZolam 0.25 MG (XANAX) TAB PO PRN ×6 (01:40→22:15)
[2022-06-03] MEDS: RT-ALBUTEROL/IPRATROPIUM 3 ML (DUONEB) VIAL INH SCH ×6 (02:38→22:10)
[2022-06-03 03:30] VITALS: BP 113/75
[2022-06-03 05:15] LABS: BASOPHILS # (AUTO) 0.1 10^3/uL (0.0-0.1); BASOPHILS % (AUTO) 1 % (0-10); EOSINOPHILS % (AUTO) 0 % (0-10); HEMATOCRIT 36 % (40-54); HEMOGLOBIN 11.5 g/dL (13.3-17.7); LYMPHOCYTES # (AUTO) 0.7 10^3/uL (1.0-4.0); LYMPHOCYTES % (AUTO) 7 % (12-44); MEAN CORPUSCULAR HEMOGLOBIN 28 pg (25-34); MEAN CORPUSCULAR HGB CONC 32 g/dL (32-36); MEAN CORPUSCULAR VOLUME 89 fL (80-99); MEAN PLATELET VOLUME 10.9 fL (9.0-12.2); MONOCYTES # (AUTO) 0.6 10^3/uL (0.0-1.0); MONOCYTES % (AUTO) 7 % (0-12); NEUTROPHILS # (AUTO) 7.1 10^3/uL (1.8-7.8); NEUTROPHILS % (AUTO) 77 % (42-75); PLATELET COUNT 289 10^3/uL (130-400); WHITE BLOOD COUNT 9.2 10^3/uL (4.3-11.0)
[2022-06-03 05:36] LABS: ALBUMIN 3.4 GM/DL (3.2-4.5); BILIRUBIN,TOTAL 0.3 MG/DL (0.1-1.0); CALCIUM 9.1 MG/DL (8.5-10.1); CREATININE SERUM 0.94 MG/DL (0.60-1.30); POTASSIUM 4.6 MMOL/L (3.6-5.0); TOTAL PROTEIN 5.9 GM/DL (6.4-8.2)
[2022-06-03] MEDS: morphine INJ 4 MG/ML 1 ML (VIAL/SYRINGE) IV PRN (06:03)
[2022-06-03 08:00] VITALS: BP 128/78
--- NOTE | 2022-06-03 08:50 | Cardiology Progress Note ---
Progress Note-Cardiology Events since last exam Date Seen by Provider: Jun 03, 2022 Time Seen by Provider: 08:48 Events since last exam I am following him due to heart failure with preserved ejection fraction and atrial fibrillation. Over the weekend he was transferred out of the intensive care unit to the medical floor. He has been using BiPAP at night. He has a CPAP at home and uses this most nights but not all. He still has a fair amount of shortness of breath and fatigue. He denies chest pain, palpitations, syncope, or ankle edema. Certain portions of this document may have been dictated utilizing voice recognition technology. Inherent to this technology, typographical and grammatical errors may exist. As much as I am diligent to identify and correct these mistakes, some errors may remain in the document. Vitals Last set of Vitals Signs Vital Signs 06/03/22 06/03/22 06/03/22 08:00 08:34 10:50 Temp 36.1 Pulse 84 Resp 20 B/P (MAP) 128/78 (95) Pulse Ox 97 O2 Delivery NIV Bilevel O2 Flow Rate 50.00 Labs Labs Laboratory Tests 06/03/22 05:07 Exam Vital Signs Vital Signs Date Time Temp Pulse Resp B/P (MAP) Pulse Ox O2 Delivery O2 Flow Rate FiO2 06/03/22 10:50 84 20 97 50.00 06/03/22 08:34 NIV Bilevel 06/03/22 08:00 36.1 128/78 (95) Physical Exam General: Alert. No acute distress. He is obese. He is wearing oxygen by nasal cannula. He appears chronically ill. Eye: No xanthelasma. HENT: Normocephalic. Neck: Jugular venous pressure does not appear elevated. Respiratory: Lungs are clear to auscultation but diffusely decreased breath sounds. Respirations are non-labored. Breath sounds are equal. Symmetrical chest wall expansion. Cardiovascular: Normal rate. Regular rhythm. Distant S1/S2. No murmur. No gallop. No edema. Gastrointestinal: Soft. Normal bowel sounds. Skin: Warm. Dry. Neurologic: Alert and oriented to person, place, time. Cranial nerves 3-11 grossly intact. Psychiatric: Cooperative. Appropriate mood & affect. Labs Laboratory Tests Test 06/03/22 05:07 Range/Units White Blood Count 9.2 4.3-11.0 10^3/uL Red Blood Count 4.06 L 4.30-5.52 10^6/uL Hemoglobin 11.5 L 13.3-17.7 g/dL Hematocrit 36 L 40-54 % Mean Corpuscular Volume 89 80-99 fL Mean Corpuscular Hemoglobin 28 25-34 pg Mean Corpuscular Hemoglobin Concent 32 32-36 g/dL Red Cell Distribution Width 16.1 H 10.0-14.5 % Platelet Count 289 130-400 10^3/uL Mean Platelet Volume 10.9 9.0-12.2 fL Immature Granulocyte % (Auto) 9 % Neutrophils (%) (Auto) 77 H 42-75 % Lymphocytes (%) (Auto) 7 L 12-44 % Monocytes (%) (Auto) 7 0-12 % Eosinophils (%) (Auto) 0 0-10 % Basophils (%) (Auto) 1 0-10 % Neutrophils # (Auto) 7.1 1.8-7.8 10^3/uL Lymphocytes # (Auto) 0.7 L 1.0-4.0 10^3/uL Monocytes # (Auto) 0.6 0.0-1.0 10^3/uL Eosinophils # (Auto) 0.0 0.0-0.3 10^3/uL Basophils # (Auto) 0.1 0.0-0.1 10^3/uL Immature Granulocyte # (Auto) 0.8 H 0.0-0.1 10^3/uL Sodium Level 137 135-145 MMOL/L Potassium Level 4.6 3.6-5.0 MMOL/L Chloride Level 101 98-107 MMOL/L Carbon Dioxide Level 24 21-32 MMOL/L Anion Gap 12 5-14 MMOL/L Blood Urea Nitrogen 39 H 7-18 MG/DL Creatinine 0.94 0.60-1.30 MG/DL Estimat Glomerular Filtration Rate 89 BUN/Creatinine Ratio 41 Glucose Level 219 H 70-105 MG/DL Calcium Level 9.1 8.5-10.1 MG/DL Corrected Calcium 9.6 8.5-10.1 MG/DL Total Bilirubin 0.3 0.1-1.0 MG/DL Aspartate Amino Transf (AST/SGOT) 24 5-34 U/L Alanine Aminotransferase (ALT/SGPT) 42 0-55 U/L Alkaline Phosphatase 58 40-136 U/L Total Protein 5.9 L 6.4-8.2 GM/DL Albumin 3.4 3.2-4.5 GM/DL Diagnosis/Problems Diagnosis/Problems (1) Acute on chronic heart failure with preserved ejection fraction (HFpEF) Status: Acute Assessment & Plan: His BNP was slightly elevated and chest x-ray has been consistent with pulmonary edema but on 06/01 his chest x-ray was clear. His echocardiogram from January 2022 showed a normal ejection fraction. I will change the IV Lasix over to oral. He will probably need to be discharged with oral Lasix. His creatinine has been stable despite intravenous Lasix. (2) Paroxysmal atrial fibrillation Status: Chronic Assessment & Plan: He remains in sinus rhythm on amiodarone. I decreased the amiodarone to 200 mg once daily at the time of admission. This was supposed to be tapered as an outpatient but then he got sick and missed his follow-up appointment. I do not have him on oral anticoagulation because I felt the previous atrial fibrillation was brought on by pneumonia during a hospitalization earlier this year. My plan is to eventually taper the amiodarone to off as an outpatient. (3) Ventricular tachycardia Assessment & Plan: He also had some possible ventricular tachycardia during his previous hospitalization earlier this year. He has not been having any significant ventricular arrhythmias during this hospitalization. I will plan on an ischemic evaluation following discharge, assuming he makes it to his follow- up appointments with me. I am not sure he would tolerate a pharmacologic stress test given his current pulmonary status. (4) Primary hypertension Status: Chronic Assessment & Plan: Continue diltiazem which she has been taking for hypertension and the previous atrial fibrillation. His blood pressures had been running on the low side but are now trending upwards. I will increase his dose of diltiazem. (5) Pulmonary hypertension Status: Chronic Assessment & Plan: His echocardiogram from earlier this year showed severe pulmonary hypertension. This is most likely due to his underlying chronic obstructive pulmonary disease. This will need to be followed longitudinally. He may benefit from home oxygen if he does not already have this in place. (6) Mixed hyperlipidemia Status: Chronic Assessment & Plan: Continue atorvastatin. (7) Acute on chronic respiratory failure with hypoxemia Assessment & Plan: Most likely due to an exacerbation of his chronic obstructive pulmonary disease as well as some superimposed heart failure. He does not seem to be making much progress. We may need to suggest palliative care if he does not make any improvement in the next few days. CAROL LEWIS JR, MD Jun 03, 2022 08:50
[2022-06-03] MEDS: methylPREDNISolone 40 MG/ML (Solu-MEDROL) VIAL IV SCH ×2 (08:56→20:47)
[2022-06-03] MEDS: NICOTINE 21 MG (NICODERM) PATCH TD SCH (08:56)
[2022-06-03] MEDS: ENOXAPARIN 40 MG/0.4 ML (LOVENOX) SYR SC SCH (08:57)
[2022-06-03] MEDS: SENNOSIDES 8.6 MG (SENOKOT) TAB PO SCH ×2 (08:57→20:47)
[2022-06-03] MEDS: dilTIAZem120 MG (CARDIZEM CD) CAP PO SCH (08:58)
[2022-06-03] MEDS: DOCUSATE SODIUM 100 MG (COLACE) CAP PO SCH ×2 (08:58→20:47)
[2022-06-03] MEDS: AMIODARONE 200 MG (CORDARONE) TAB PO SCH (08:58)
[2022-06-03] MEDS: FUROSEMIDE 40 MG (LASIX) TAB PO SCH (10:06)
[2022-06-03 12:00] VITALS: BP 126/67
--- NOTE | 2022-06-03 13:25 | Physical Therapy Daily Note ---
PT Daily Note-Current Subjective Patient agrees to PT. Mental Status Patient Orientation: Normal For Age Attachments: Oxygen Transfers SCALE: Activities may be completed with or without assistive devices. 0-Aavxgicmsi-lqtfops completes the activity by him/herself with no assistance from a helper. 5-Set-up or Clean-up Assistance-helper sets up or cleans up; patient completes activity. [place] assists only prior to or following the activity. 4-Supervision or Touching Assistance-helper provides verbal cues and/or touching/steadying and/or contact guard assistance as patient completes activity. Assistance may be provided throughout the activity or intermittently. 3-Partial/Moderate Assistance-helper does LESS THAN HALF the effort. [place] lifts, holds or supports trunk or limbs, but provides less than half the effort. 2-Substantial/Maximal Assistance-helper does MORE THAN HALF the effort. [place] lifts or holds trunk or limbs and provides more than half the effort. 1-Mmxaxjllm-uukyot does ALL the effort. Patient does none of the effort to complete the activity. Or, the assistance of 2 or more helpers is required for the patient to complete the activity. If activity was not attempted, code reason: 7-Patient Refused. 9-Not Applicable-not attempted and the patient did not perform the activity before the current illness, exacerbation or injury. 10-Not Attempted due to Environmental Limitations-(lack of equipment, weather restraints, etc.). 88-Not Attempted due to Medical Conditions or Safety Concerns. Sit to Lying (QC): 6 Lying to Sitting/Side of Bed(Q: 6 Sit to Stand (QC): 4 Weight Bearing Right Lower Extremity: Right Weight Bearing/Tolerated Left Lower Extremity: Left Weight Bearing/Tolerated Gait Training Distance: 120' Walk 10 feet (QC): 4 Walk 50 ft with 2 Turns(QC): 4 Gait Assistive Device: FWW slow, steady Assessment Patient returned to bed with needs met. PT to continue to increase activity as tolerated by patient. PT Mcc Goals Mcc Goals PT Lead Project Engineer Goals Time Frame: Jun 03, 2022 Roll Left & Right (QC): 6 Sit to Lying (QC): 6 Lying-Sitting on Side/Bed(QC): 6 Sit to Stand (QC): 6 Chair/Zqw-nx-Yywgx Xfer(QC): 6 Walk 10 feet (QC): 6 Walk 50ft with 2 Turns (QC): 6 Walk 150 ft (QC): 6 PT Plan Treatment/Plan Treatment Plan: Continue Plan of Care Treatment Plan: Education, Functional Activity Yvette, Functional Strength, Gait, Safety, Therapeutic Exercise, Transfers Treatment Duration: Jun 03, 2022 Frequency: 6 times per week Estimated Hrs Per Day: .25 hour per day Patient and/or Family Agrees t: Yes Time/GCodes Time In: 1305 Time Out: 1318 Total Billed Treatment Time: 13 Total Billed Treatment 1 visit FA 13 min DOUGLAS WILEY PT Jun 03, 2022 13:25
[2022-06-03 16:00] VITALS: BP 125/60
--- NOTE | 2022-06-03 19:43 | Progress Note ---
Subjective Subjective/Events-last exam Pt seen at 1027, sitting at side of bed with bipap on, had it off for breakfast and a while after, but became very short of breath. Objective Exam Last Set of Vital Signs Vital Signs Date Time Temp Pulse Resp B/P (MAP) Pulse Ox O2 Delivery O2 Flow Rate FiO2 06/03/22 18:34 95 Nasal Cannula 4.00 06/03/22 16:00 36.5 81 20 125/60 (81) Capillary Refill : Less Than 3 Seconds I&O Intake and Output 06/03/22 00:00 Intake Total 2110 ml Output Total 2625 ml Balance -515 ml Intake Oral 2010 ml IV Total 100 ml Output Urine Total 2625 ml General: Alert, Mild Distress Lungs: Other (diffuse expiratory wheezing) Heart: Regular Rate Extremities: Other (1+ pitting edema) Neuro: Normal Speech Psych/Mental Status: Mood NL Results/Procedures Lab Laboratory Tests 06/03/22 05:07: White Blood Count 9.2, Red Blood Count 4.06L, Hemoglobin 11.5L, Hematocrit 36L, Mean Corpuscular Volume 89, Mean Corpuscular Hemoglobin 28, Mean Corpuscular Hemoglobin Concent 32, Red Cell Distribution Width 16.1H, Platelet Count 289, Mean Platelet Volume 10.9, Immature Granulocyte % (Auto) 9, Neutrophils (%) (Auto) 77H, Lymphocytes (%) (Auto) 7L, Monocytes (%) (Auto) 7, Eosinophils (%) (Auto) 0, Basophils (%) (Auto) 1, Neutrophils # (Auto) 7.1, Lymphocytes # (Auto) 0.7L, Monocytes # (Auto) 0.6, Eosinophils # (Auto) 0.0, Basophils # (Auto) 0.1, Immature Granulocyte # (Auto) 0.8H, Sodium Level 137, Potassium Level 4.6, Chloride Level 101, Carbon Dioxide Level 24, Anion Gap 12, Blood Urea Nitrogen 39H, Creatinine 0.94, Estimat Glomerular Filtration Rate 89, BUN/Creatinine Ratio 41, Glucose Level 219H, Calcium Level 9.1, Corrected Calcium 9.6, Total Bilirubin 0.3, Aspartate Amino Transf (AST/SGOT) 24, Alanine Aminotransferase (ALT/SGPT) 42, Alkaline Phosphatase 58, Total Protein 5.9L, Albumin 3.4 Microbiology 05/26/22 MRSA Screen - Final, Complete MRSA not isolated 05/26/22 Urine Culture - Final, Complete NO GROWTH 05/26/22 Blood Culture - Final, Complete [place] turbata Assessment/Plan Assessment/Plan (1) Acute on chronic respiratory failure with hypoxemia Status: Acute Assessment & Plan: Intermittently requiring bipap still, secondary to COPD exacerbation and CHF exacerbation. Was admitted 02/12-03/06 this year with severe COPD exacerbation and was on ventilator for long course. Has recently gone through COVID infection as well. (2) HLD (hyperlipidemia) Status: Chronic Assessment & Plan: Continue home statin (3) Primary hypertension Status: Chronic (4) Pulmonary hypertension Status: Chronic Assessment & Plan: Suspect secondary to lung disease. (5) Paroxysmal atrial fibrillation Status: Chronic Assessment & Plan: Appreciate Cardiology recommendations. Tapering off of amiodarone, not on anticoagulation due to suspected A fib related to pneumonia previously. (6) Acute exacerbation of chronic obstructive pulmonary disease (COPD) Status: Acute Assessment & Plan: Remains on IV solumedrol with slow improvement. Continue Duonebs, resume home Stiolto (7) Acute on chronic heart failure with preserved ejection fraction (HFpEF) Status: Acute Assessment & Plan: Appreciate Cardiology recommendations. EF normal 01/2022. BNP elevated and CXR initially with edema on this admit, now resolved. IV lasix transitioning to oral per Cards. (8) Right lower lobe consolidation Status: Acute Assessment & Plan: Treated with 5 days of meropenem, CXR now clear. One blood culture with [place]ia turbata. (9) DVT prophylaxis Status: Acute Assessment & Plan: Enoxaparin LINDA THOMPSON MD Jun 03, 2022 19:42
[2022-06-03 20:05] VITALS: BP 121/58
[2022-06-04 00:05] VITALS: BP 138/70
[2022-06-04] MEDS: diphenhydrAMINE 25 MG TAB (BENADRYL) PO PRN ×2 (02:09→20:21)
[2022-06-04] MEDS: ALPRAZolam 0.25 MG (XANAX) TAB PO PRN ×5 (02:09→22:14)
[2022-06-04] MEDS: RT-ALBUTEROL/IPRATROPIUM 3 ML (DUONEB) VIAL INH SCH ×6 (02:26→21:53)
[2022-06-04 05:33] VITALS: BP 140/82
[2022-06-04 05:40] LABS: BASOPHILS % (AUTO) 0 % (0-10); EOSINOPHILS % (AUTO) 0 % (0-10); HEMATOCRIT 35 % (40-54); HEMOGLOBIN 10.9 g/dL (13.3-17.7); LYMPHOCYTES # (AUTO) 0.5 10^3/uL (1.0-4.0); LYMPHOCYTES % (AUTO) 5 % (12-44); MEAN CORPUSCULAR HEMOGLOBIN 28 pg (25-34); MEAN CORPUSCULAR HGB CONC 31 g/dL (32-36); MEAN CORPUSCULAR VOLUME 89 fL (80-99); MEAN PLATELET VOLUME 10.9 fL (9.0-12.2); MONOCYTES # (AUTO) 0.4 10^3/uL (0.0-1.0); MONOCYTES % (AUTO) 5 % (0-12); NEUTROPHILS # (AUTO) 7.7 10^3/uL (1.8-7.8); NEUTROPHILS % (AUTO) 81 % (42-75); PLATELET COUNT 214 10^3/uL (130-400); WHITE BLOOD COUNT 9.5 10^3/uL (4.3-11.0)
[2022-06-04 05:54] LABS: ALBUMIN 3.4 GM/DL (3.2-4.5)
[2022-06-04 05:55] LABS: POTASSIUM 4.2 MMOL/L (3.6-5.0)
[2022-06-04 05:57] LABS: TOTAL PROTEIN 5.9 GM/DL (6.4-8.2)
[2022-06-04 05:59] LABS: BILIRUBIN,TOTAL 0.4 MG/DL (0.1-1.0)
[2022-06-04 06:01] LABS: CREATININE SERUM 0.95 MG/DL (0.60-1.30)
[2022-06-04 08:00] VITALS: BP 130/67
[2022-06-04] MEDS: ENOXAPARIN 40 MG/0.4 ML (LOVENOX) SYR SC SCH (08:14)
[2022-06-04] MEDS: methylPREDNISolone 40 MG/ML (Solu-MEDROL) VIAL IV SCH (08:14)
[2022-06-04] MEDS: SENNOSIDES 8.6 MG (SENOKOT) TAB PO SCH ×2 (08:14→20:21)
[2022-06-04] MEDS: NICOTINE 21 MG (NICODERM) PATCH TD SCH (08:14)
[2022-06-04] MEDS: dilTIAZem120 MG (CARDIZEM CD) CAP PO SCH (08:14)
[2022-06-04] MEDS: FUROSEMIDE 40 MG (LASIX) TAB PO SCH (08:14)
[2022-06-04] MEDS: DOCUSATE SODIUM 100 MG (COLACE) CAP PO SCH ×2 (08:15→20:21)
[2022-06-04] MEDS: AMIODARONE 200 MG (CORDARONE) TAB PO SCH (08:15)
--- NOTE | 2022-06-04 08:21 | Cardiology Progress Note ---
Progress Note-Cardiology Events since last exam Date Seen by Provider: Jun 04, 2022 Time Seen by Provider: 08:19 Events since last exam I am following him due to heart failure and paroxysmal atrial fibrillation. He is feeling better this morning. He was sitting up in a chair and had just finished breakfast. He is still short of breath but overall feels improved. He denies chest pain, palpitations, or syncope. He has mild bilateral lower extremity edema. He believes he was taking Lasix 10 mg twice daily at home but his medication profile shows 40 mg once daily. I just changed IV Lasix to oral on 06/03. Certain portions of this document may have been dictated utilizing voice recognition technology. Inherent to this technology, typographical and grammatical errors may exist. As much as I am diligent to identify and correct these mistakes, some errors may remain in the document. Vitals Last set of Vitals Signs Vital Signs 06/04/22 05:33 Temp 36.8 Pulse 78 Resp 18 B/P (MAP) 140/82 (101) Pulse Ox 98 O2 Delivery Nasal Cannula O2 Flow Rate 4.00 Labs Labs Laboratory Tests 06/04/22 05:27 Exam Vital Signs Vital Signs Date Time Temp Pulse Resp B/P (MAP) Pulse Ox O2 Delivery O2 Flow Rate FiO2 06/04/22 05:33 36.8 78 18 140/82 (101) 98 Nasal Cannula 4.00 Physical Exam General: Alert. No acute distress. He is obese. Eye: No xanthelasma. HENT: Normocephalic. Neck: Jugular venous pressure does not appear elevated. Respiratory: Lungs are clear to auscultation. Aeration is much better today. Respirations are non-labored. Breath sounds are equal. Symmetrical chest wall expansion. Cardiovascular: Normal rate. Regular rhythm. Distant S1/S2. No murmur. No gallop. 1+ bilateral pretibial edema. Gastrointestinal: Soft. Normal bowel sounds. Skin: Warm. Dry. Neurologic: Alert and oriented to person, place, time. Cranial nerves 3-11 grossly intact. Psychiatric: Cooperative. Appropriate mood & affect. Labs Laboratory Tests Test 06/04/22 05:27 Range/Units White Blood Count 9.5 4.3-11.0 10^3/uL Red Blood Count 3.94 L 4.30-5.52 10^6/uL Hemoglobin 10.9 L 13.3-17.7 g/dL Hematocrit 35 L 40-54 % Mean Corpuscular Volume 89 80-99 fL Mean Corpuscular Hemoglobin 28 25-34 pg Mean Corpuscular Hemoglobin Concent 31 L 32-36 g/dL Red Cell Distribution Width 16.1 H 10.0-14.5 % Platelet Count 214 130-400 10^3/uL Mean Platelet Volume 10.9 9.0-12.2 fL Immature Granulocyte % (Auto) 9 % Neutrophils (%) (Auto) 81 H 42-75 % Lymphocytes (%) (Auto) 5 L 12-44 % Monocytes (%) (Auto) 5 0-12 % Eosinophils (%) (Auto) 0 0-10 % Basophils (%) (Auto) 0 0-10 % Neutrophils # (Auto) 7.7 1.8-7.8 10^3/uL Lymphocytes # (Auto) 0.5 L 1.0-4.0 10^3/uL Monocytes # (Auto) 0.4 0.0-1.0 10^3/uL Eosinophils # (Auto) 0.0 0.0-0.3 10^3/uL Basophils # (Auto) 0.0 0.0-0.1 10^3/uL Immature Granulocyte # (Auto) 0.9 H 0.0-0.1 10^3/uL Sodium Level 138 135-145 MMOL/L Potassium Level 4.2 3.6-5.0 MMOL/L Chloride Level 99 98-107 MMOL/L Carbon Dioxide Level 28 21-32 MMOL/L Anion Gap 11 5-14 MMOL/L Blood Urea Nitrogen 39 H 7-18 MG/DL Creatinine 0.95 0.60-1.30 MG/DL Estimat Glomerular Filtration Rate 88 BUN/Creatinine Ratio 41 Glucose Level 180 H 70-105 MG/DL Calcium Level 9.0 8.5-10.1 MG/DL Corrected Calcium 9.5 8.5-10.1 MG/DL Total Bilirubin 0.4 0.1-1.0 MG/DL Aspartate Amino Transf (AST/SGOT) 31 5-34 U/L Alanine Aminotransferase (ALT/SGPT) 42 0-55 U/L Alkaline Phosphatase 62 40-136 U/L Total Protein 5.9 L 6.4-8.2 GM/DL Albumin 3.4 3.2-4.5 GM/DL Diagnosis/Problems Diagnosis/Problems (1) Acute on chronic heart failure with preserved ejection fraction (HFpEF) Status: Acute Assessment & Plan: His BNP was slightly elevated and chest x-rays had been consistent with pulmonary edema but on 06/01 his chest x-ray was clear. His echocardiogram from January 2022 showed a normal ejection fraction. I changed IV Lasix to oral on 06/03. He will probably need to be discharged with oral Lasix. His creatinine has been stable despite intravenous Lasix. (2) Paroxysmal atrial fibrillation Status: Chronic Assessment & Plan: He remains in sinus rhythm on amiodarone. I decreased the amiodarone to 200 mg once daily at the time of admission. This was supposed to be tapered as an outpatient but then he got sick and missed his follow-up appointment. I do not have him on oral anticoagulation because I felt the previous atrial fibrillation was brought on by pneumonia during a hospitalization earlier this year. My plan is to eventually taper the amiodarone to off as an outpatient. (3) Primary hypertension Status: Chronic Assessment & Plan: Continue diltiazem which she has been taking for hypertension and the previous atrial fibrillation. His blood pressures had been running on the low side but are now trending upwards. I will increase his dose of diltiazem. (4) Pulmonary hypertension Status: Chronic Assessment & Plan: His echocardiogram from earlier this year showed severe pulmonary hypertension. This is most likely due to his underlying chronic obstructive pulmonary disease. This will need to be followed longitudinally. He may benefit from home oxygen if he does not already have this in place. (5) Mixed hyperlipidemia Status: Chronic Assessment & Plan: Continue atorvastatin. (6) Ventricular tachycardia Status: Acute Assessment & Plan: He also had some possible ventricular tachycardia during his previous hospitalization earlier this year. He has not been having any significant ventricular arrhythmias during this hospitalization. I will plan on an ischemic evaluation following discharge, assuming he makes it to his follow- up appointments with me. I am not sure he would tolerate a pharmacologic stress test given his current pulmonary status. (7) Acute on chronic respiratory failure with hypoxemia Status: Acute Assessment & Plan: Most likely due to an exacerbation of his chronic obstructive pulmonary disease as well as some superimposed heart failure. He does not seem to be making much progress. We may need to suggest palliative care if he does not make any improvement in the next few days. CAROL LEWIS JR, MD Jun 04, 2022 08:21
[2022-06-04] MEDS: RT-ALBUTEROL HFA 8.5 GM INHALER IH SCH ×3 (08:54→15:23)
[2022-06-04] MEDS ORDERED: NON-FORMULARY MEDICATION 1 EA EA (Tiotropium Br/Olodaterol HCl (Stiolto Respimat Inhal Spr INH SCH (09:00)
--- NOTE | 2022-06-04 09:03 | Physical Therapy Daily Note ---
PT Daily Note-Current Subjective Patient in bed pre tx, agrees to PT, has unrated pain "all over". Appearance Patient in bed post tx with nurse call, phone, tray, all needs met. Mental Status Patient Orientation: Person, Place, Situation Attachments: Oxygen Transfers SCALE: Activities may be completed with or without assistive devices. 7-Cxsuaswnjk-adhbsdx completes the activity by him/herself with no assistance from a helper. 5-Set-up or Clean-up Assistance-helper sets up or cleans up; patient completes activity. Rison assists only prior to or following the activity. 4-Supervision or Touching Assistance-helper provides verbal cues and/or touching/steadying and/or contact guard assistance as patient completes activity. Assistance may be provided throughout the activity or intermittently. 3-Partial/Moderate Assistance-helper does LESS THAN HALF the effort. Rison lifts, holds or supports trunk or limbs, but provides less than half the effort. 2-Substantial/Maximal Assistance-helper does MORE THAN HALF the effort. Rison lifts or holds trunk or limbs and provides more than half the effort. 2-Nhqjboibb-yseqbs does ALL the effort. Patient does none of the effort to complete the activity. Or, the assistance of 2 or more helpers is required for the patient to complete the activity. If activity was not attempted, code reason: 7-Patient Refused. 9-Not Applicable-not attempted and the patient did not perform the activity before the current illness, exacerbation or injury. 10-Not Attempted due to Environmental Limitations-(lack of equipment, weather restraints, etc.). 88-Not Attempted due to Medical Conditions or Safety Concerns. Roll Left & Right (QC): 6 Sit to Lying (QC): 6 Lying to Sitting/Side of Bed(Q: 6 Sit to Stand (QC): 4 Chair/Iba-fe-Fkuap Xfer(QC): 4 Weight Bearing Right Lower Extremity: Right Weight Bearing/Tolerated Left Lower Extremity: Left Weight Bearing/Tolerated Gait Training Distance: 120' Walk 10 feet (QC): 4 Walk 50 ft with 2 Turns(QC): 4 Gait Persons Needed: 1 Gait Assistive Device: FWW slow ambulation, needs cues to stay close to the walker, needed a few standing rest breaks Treatments bed mobility and transfers, ambulation Assessment Current Status: Poor Progress Patient was pretty SOB after getting back to his room, sat on the side of the bed and performed purse lip breathing and recovered after about 20 sec. Patient is a little impulsive with movement. Patient states he thinks he ambulated a little too far. PT [facility] Goals Printing Supervisor Goals PT Printing Supervisor Goals Time Frame: Jun 03, 2022 Roll Left & Right (QC): 6 Sit to Lying (QC): 6 Lying-Sitting on Side/Bed(QC): 6 Sit to Stand (QC): 6 Chair/Ass-qn-Rqxrj Xfer(QC): 6 Walk 10 feet (QC): 6 Walk 50ft with 2 Turns (QC): 6 Walk 150 ft (QC): 6 PT Plan Problem List Problem List: Activity Tolerance, Functional Strength, Safety, Balance, Gait, Transfer, ROM Treatment/Plan Treatment Plan: Continue Plan of Care Treatment Plan: Education, Functional Activity Yvette, Functional Strength, Gait, Safety, Therapeutic Exercise, Transfers Treatment Duration: Jun 03, 2022 Frequency: 6 times per week Estimated Hrs Per Day: .25 hour per day Patient and/or Family Agrees t: Yes Safety Risks/Education Patient Education: Gait Training, Transfer Techniques, Correct Positioning, Safety Issues Teaching Recipient: Patient Teaching Methods: Demonstration, Discussion Response to Teaching: Reinforcement Needed Time/GCodes Time In: 0845 Time Out: 0855 Total Billed Treatment Time: 10 Total Billed Treatment 1 visit GT 10JENNYFER GUERRERO PT Jun 04, 2022 09:03
[2022-06-04] MEDS: UMECLIDINIUM BROMIDE (INCRUSE ELLIPTA) 7'S IH SCH (10:52)
[2022-06-04 12:00] VITALS: BP 149/77
--- NOTE | 2022-06-04 13:02 | Progress Note ---
Subjective Subjective/Events-last exam Lying in bed, appears less short of breath than yesterday. States he needs more pain medicine which helps him cough up/clear up his lungs better. He also is concerned that his legs are still swollen. Objective Exam Last Set of Vital Signs Vital Signs Date Time Temp Pulse Resp B/P (MAP) Pulse Ox O2 Delivery O2 Flow Rate FiO2 06/04/22 12:00 36.1 88 22 149/77 (101) 94 Nasal Cannula 4.00 Capillary Refill : Less Than 3 Seconds I&O Intake and Output 06/04/22 00:00 Intake Total 1840 ml Output Total 1475 ml Balance 365 ml Intake Oral 1740 ml IV Total 100 ml Output Urine Total 1475 ml # Bowel Movements 2 General: Alert, Mild Distress Lungs: Other (decreased air movement throughout) Heart: Regular Rate Abdomen: Normal Bowel Sounds, Soft Extremities: Other (1+ pitting edema bilaterally) Neuro: Normal Speech Psych/Mental Status: Mood NL Results/Procedures Lab Laboratory Tests 06/04/22 05:27: White Blood Count 9.5, Red Blood Count 3.94L, Hemoglobin 10.9L, Hematocrit 35L, Mean Corpuscular Volume 89, Mean Corpuscular Hemoglobin 28, Mean Corpuscular Hemoglobin Concent 31L, Red Cell Distribution Width 16.1H, Platelet Count 214, Mean Platelet Volume 10.9, Immature Granulocyte % (Auto) 9, Neutrophils (%) (Auto) 81H, Lymphocytes (%) (Auto) 5L, Monocytes (%) (Auto) 5, Eosinophils (%) (Auto) 0, Basophils (%) (Auto) 0, Neutrophils # (Auto) 7.7, Lymphocytes # (Auto) 0.5L, Monocytes # (Auto) 0.4, Eosinophils # (Auto) 0.0, Basophils # (Auto) 0.0, Immature Granulocyte # (Auto) 0.9H, Sodium Level 138, Potassium Level 4.2, Chloride Level 99, Carbon Dioxide Level 28, Anion Gap 11, Blood Urea Nitrogen 39H, Creatinine 0.95, Estimat Glomerular Filtration Rate 88, BUN/Creatinine Ratio 41, Glucose Level 180H, Calcium Level 9.0, Corrected Calcium 9.5, Total Bilirubin 0.4, Aspartate Amino Transf (AST/SGOT) 31, Alanine Aminotransferase (ALT/SGPT) 42, Alkaline Phosphatase 62, Total Protein 5.9L, Albumin 3.4 Microbiology 05/26/22 MRSA Screen - Final, Complete MRSA not isolated 05/26/22 Urine Culture - Final, Complete NO GROWTH 05/26/22 Blood Culture - Final, Complete [place] turbata Assessment/Plan Assessment/Plan (1) Acute on chronic respiratory failure with hypoxemia Status: Acute Assessment & Plan: Intermittently requiring bipap still, secondary to COPD exacerbation and CHF exacerbation. Was admitted 02/12-03/06 this year with severe COPD exacerbation and was on ventilator for long course. Has recently gone th rough COVID infection as well. (2) HLD (hyperlipidemia) Status: Chronic Assessment & Plan: Continue home statin (3) Primary hypertension Status: Chronic (4) Pulmonary hypertension Status: Chronic Assessment & Plan: Suspect secondary to lung disease. (5) Paroxysmal atrial fibrillation Status: Chronic Assessment & Plan: Appreciate Cardiology recommendations. Tapering off of amiodarone, not on anticoagulation due to suspected A fib related to pneumonia previously. (6) Acute exacerbation of chronic obstructive pulmonary disease (COPD) Status: Acute Assessment & Plan: Remains on IV solumedrol with slow improvement. Continue Duonebs, resume home Stiolto 06/04 change to oral prednisone taper (7) Acute on chronic heart failure with preserved ejection fraction (HFpEF) Status: Acute Assessment & Plan: Appreciate Cardiology recommendations. EF normal 01/2022. BNP elevated and CXR initially with edema on this admit, now resolved. IV lasix transitioning to oral per Cards. 06/04 discussed while peripheral edema persists, his CXR was clear and that overuse of diuretic can cause renal dysfunction (8) Right lower lobe consolidation Status: Acute Assessment & Plan: Treated with 5 days of meropenem, CXR now clear. One blood culture with [place] turbata. (9) DVT prophylaxis Status: Acute Assessment & Plan: Enoxaparin LINDA THOMPSON MD Jun 04, 2022 13:02
[2022-06-04 16:02] VITALS: BP 122/56
[2022-06-04 19:36] VITALS: BP 140/63
[2022-06-04] MEDS: MELATONIN 3 MG TABLET PO PRN (20:21)
[2022-06-05] VITALS (7 sets, daily range): BP systolic 119–147; BP diastolic 59–79
[2022-06-05] MEDS: RT-ALBUTEROL/IPRATROPIUM 3 ML (DUONEB) VIAL INH SCH ×6 (02:06→22:06)
[2022-06-05] MEDS: ALPRAZolam 0.25 MG (XANAX) TAB PO PRN ×4 (03:08→20:20)
[2022-06-05] MEDS: predniSONE 10 MG TAB PO SCH (05:47)
[2022-06-05] MEDS: UMECLIDINIUM BROMIDE (INCRUSE ELLIPTA) 7'S IH SCH (07:00)
[2022-06-05 08:09] LABS: BASOPHILS # (AUTO) 0.1 10^3/uL (0.0-0.1); BASOPHILS % (AUTO) 1 % (0-10); EOSINOPHILS % (AUTO) 0 % (0-10); HEMATOCRIT 36 % (40-54); HEMOGLOBIN 11.4 g/dL (13.3-17.7); LYMPHOCYTES # (AUTO) 1.2 10^3/uL (1.0-4.0); LYMPHOCYTES % (AUTO) 9 % (12-44); MEAN CORPUSCULAR HEMOGLOBIN 28 pg (25-34); MEAN CORPUSCULAR HGB CONC 32 g/dL (32-36); MEAN CORPUSCULAR VOLUME 88 fL (80-99); MEAN PLATELET VOLUME 10.5 fL (9.0-12.2); MONOCYTES # (AUTO) 1.2 10^3/uL (0.0-1.0); MONOCYTES % (AUTO) 9 % (0-12); NEUTROPHILS # (AUTO) 9.8 10^3/uL (1.8-7.8); NEUTROPHILS % (AUTO) 75 % (42-75); PLATELET COUNT 193 10^3/uL (130-400); WHITE BLOOD COUNT 13.1 10^3/uL (4.3-11.0)
[2022-06-05] MEDS: NICOTINE 21 MG (NICODERM) PATCH TD SCH (08:20)
[2022-06-05] MEDS: ENOXAPARIN 40 MG/0.4 ML (LOVENOX) SYR SC SCH (08:21)
[2022-06-05] MEDS: dilTIAZem120 MG (CARDIZEM CD) CAP PO SCH (08:21)
[2022-06-05] MEDS: AMIODARONE 200 MG (CORDARONE) TAB PO SCH (08:21)
[2022-06-05] MEDS: FUROSEMIDE 40 MG (LASIX) TAB PO SCH (08:21)
[2022-06-05] MEDS: morphine INJ 4 MG/ML 1 ML (VIAL/SYRINGE) IV PRN (08:32)
[2022-06-05 08:36] LABS: ALBUMIN 3.1 GM/DL (3.2-4.5); POTASSIUM 3.8 MMOL/L (3.6-5.0)
[2022-06-05 08:37] LABS: CALCIUM 8.6 MG/DL (8.5-10.1)
[2022-06-05 08:39] LABS: TOTAL PROTEIN 5.4 GM/DL (6.4-8.2)
[2022-06-05 08:40] LABS: BILIRUBIN,TOTAL 0.3 MG/DL (0.1-1.0)
[2022-06-05 08:42] LABS: CREATININE SERUM 0.81 MG/DL (0.60-1.30)
[2022-06-05] MEDS: SENNOSIDES 8.6 MG (SENOKOT) TAB PO SCH ×2 (08:55→20:20)
[2022-06-05] MEDS: DOCUSATE SODIUM 100 MG (COLACE) CAP PO SCH ×2 (08:55→20:20)
--- NOTE | 2022-06-05 08:55 | Cardiology Progress Note ---
Progress Note-Cardiology Events since last exam Date Seen by Provider: Jun 05, 2022 Time Seen by Provider: 08:54 Events since last exam I am following him due to heart failure. He still has mild ankle edema but improved over the past 24 hours. He has been coughing but cannot raise any sputum. He is still short of breath but may be close to his baseline shortness of breath. He denies chest pain, palpitations, or syncope. Certain portions of this document may have been dictated utilizing voice recognition technology. Inherent to this technology, typographical and grammatical errors may exist. As much as I am diligent to identify and correct these mistakes, some errors may remain in the document. Vitals Last set of Vitals Signs Vital Signs 06/05/22 12:14 Temp 36.1 Pulse 81 Resp 17 B/P (MAP) 126/76 (93) Pulse Ox 97 O2 Delivery Nasal Cannula O2 Flow Rate 4.00 Labs Labs Laboratory Tests 06/05/22 07:22 Exam Vital Signs Vital Signs Date Time Temp Pulse Resp B/P (MAP) Pulse Ox O2 Delivery O2 Flow Rate FiO2 06/05/22 12:14 36.1 81 17 126/76 (93) 97 Nasal Cannula 4.00 Physical Exam General: Alert. No acute distress. He is obese. He is on oxygen by nasal cannula. Eye: No xanthelasma. HENT: Normocephalic. Neck: Jugular venous pressure does not appear elevated. Respiratory: Lungs are clear to auscultation. Respirations are non-labored. Breath sounds are equal. Symmetrical chest wall expansion. Cardiovascular: Normal rate. Regular rhythm. Distant S1/S2. No murmur. No gallop. 1+ bilateral pretibial edema. Gastrointestinal: Soft. Normal bowel sounds. Skin: Warm. Dry. Neurologic: Alert and oriented to person, place, time. Cranial nerves 3-11 grossly intact. Psychiatric: Cooperative. Appropriate mood & affect. Labs Laboratory Tests Test 06/05/22 07:22 Range/Units White Blood Count 13.1 H 4.3-11.0 10^3/uL Red Blood Count 4.06 L 4.30-5.52 10^6/uL Hemoglobin 11.4 L 13.3-17.7 g/dL Hematocrit 36 L 40-54 % Mean Corpuscular Volume 88 80-99 fL Mean Corpuscular Hemoglobin 28 25-34 pg Mean Corpuscular Hemoglobin Concent 32 32-36 g/dL Red Cell Distribution Width 16.2 H 10.0-14.5 % Platelet Count 193 130-400 10^3/uL Mean Platelet Volume 10.5 9.0-12.2 fL Immature Granulocyte % (Auto) 6 % Neutrophils (%) (Auto) 75 42-75 % Lymphocytes (%) (Auto) 9 L 12-44 % Monocytes (%) (Auto) 9 0-12 % Eosinophils (%) (Auto) 0 0-10 % Basophils (%) (Auto) 1 0-10 % Neutrophils # (Auto) 9.8 H 1.8-7.8 10^3/uL Lymphocytes # (Auto) 1.2 1.0-4.0 10^3/uL Monocytes # (Auto) 1.2 H 0.0-1.0 10^3/uL Eosinophils # (Auto) 0.0 0.0-0.3 10^3/uL Basophils # (Auto) 0.1 0.0-0.1 10^3/uL Immature Granulocyte # (Auto) 0.8 H 0.0-0.1 10^3/uL Sodium Level 137 135-145 MMOL/L Potassium Level 3.8 3.6-5.0 MMOL/L Chloride Level 101 98-107 MMOL/L Carbon Dioxide Level 27 21-32 MMOL/L Anion Gap 9 5-14 MMOL/L Blood Urea Nitrogen 37 H 7-18 MG/DL Creatinine 0.81 0.60-1.30 MG/DL Estimat Glomerular Filtration Rate 97 BUN/Creatinine Ratio 46 Glucose Level 131 H 70-105 MG/DL Calcium Level 8.6 8.5-10.1 MG/DL Corrected Calcium 9.3 8.5-10.1 MG/DL Total Bilirubin 0.3 0.1-1.0 MG/DL Aspartate Amino Transf (AST/SGOT) 20 5-34 U/L Alanine Aminotransferase (ALT/SGPT) 34 0-55 U/L Alkaline Phosphatase 56 40-136 U/L Total Protein 5.4 L 6.4-8.2 GM/DL Albumin 3.1 L 3.2-4.5 GM/DL Diagnosis/Problems Diagnosis/Problems (1) Acute on chronic heart failure with preserved ejection fraction (HFpEF) Status: Acute Assessment & Plan: His BNP was slightly elevated and chest x-rays had been consistent with pulmonary edema but on 06/01 his chest x-ray was clear. His echocardiogram from January 2022 showed a normal ejection fraction. I changed IV Lasix to oral on 06/03. He will probably need to be discharged with oral Lasix. His creatinine has been stable despite intravenous Lasix. (2) Paroxysmal atrial fibrillation Status: Chronic Assessment & Plan: He remains in sinus rhythm on amiodarone. I decreased the amiodarone to 200 mg once daily at the time of admission. This was supposed to be tapered as an outpatient but then he got sick and missed his follow-up appointment. I do not have him on oral anticoagulation because I felt the previous atrial fibrillation was brought on by pneumonia during a h ospitalization earlier this year. My plan is to eventually taper the amiodarone to off as an outpatient. (3) Primary hypertension Status: Chronic Assessment & Plan: Continue diltiazem which she has been taking for hypertension and the previous atrial fibrillation. His blood pressures had been running on the low side but then started trending upwards and I increased the dose of diltiazem on 06/04. (4) Pulmonary hypertension Status: Chronic Assessment & Plan: His echocardiogram from earlier this year showed severe pulmonary hypertension. This is most likely due to his underlying chronic obstructive pulmonary disease. This will need to be followed longitudinally. He may benefit from home oxygen if he does not already have this in place. (5) Mixed hyperlipidemia Status: Chronic Assessment & Plan: Continue atorvastatin. (6) Ventricular tachycardia Status: Acute Assessment & Plan: He also had some possible ventricular tachycardia during his previous hospitalization earlier this year. He has not been having any significant ventricular arrhythmias during this hospitalization. I will plan on an ischemic evaluation following discharge, assuming he makes it to his follow- up appointments with me. I am not sure he would tolerate a pharmacologic stress test given his current pulmonary status. (7) Acute on chronic respiratory failure with hypoxemia Status: Acute Assessment & Plan: Most likely due to an exacerbation of his chronic obstructive pulmonary disease as well as some superimposed heart failure. He does not seem to be making much progress. We may need to suggest palliative care if he does not make any improvement in the next few days. CAROL LEWIS JR, MD Jun 05, 2022 08:55
[2022-06-05] MEDS ORDERED: guaiFENesin SYRUP 100 MG/5 ML 10 ML (ROBITUSSIN SF) PO PRN (09:00)
--- NOTE | 2022-06-05 15:08 | Physical Therapy Progress Note ---
Therapy Progress Note Pt sitting at EOB with company present upon arrival. Pt reports will be d/c today so declines tx. Per Nursing, no confirmed d/c today but pt still refuses tx stating "he is just ready to get his medicine and d/c". No tx rendered at pt request. 1, refused MAGDY JACOBO [employer]OTH D[employer]ING RANGE TENDER Jun 05, 2022 15:08
--- NOTE | 2022-06-05 17:14 | Progress Note ---
Subjective Subjective/Events-last exam Pt states he is aching all over and wants more for his pain. He had an episode of hypoxia overnight and was placed on bipap, is now on 4 lpm and uses 3-4 lpm at baseline at home. Objective Exam Last Set of Vital Signs Vital Signs Date Time Temp Pulse Resp B/P (MAP) Pulse Ox O2 Delivery O2 Flow Rate FiO2 06/05/22 15:30 36.7 94 18 133/79 (97) 95 Nasal Cannula 4.00 Capillary Refill : Less Than 3 Seconds I&O Intake and Output 06/05/22 00:00 Intake Total 2160 ml Output Total 2700 ml Balance -540 ml Intake Oral 2160 ml Output Urine Total 2700 ml # Bowel Movements 1 General: Alert, Mild Distress Lungs: Other (diffuse expiratory wheezing, increased work of breathing) Heart: Regular Rate Neuro: Normal Speech Psych/Mental Status: Mood NL Results/Procedures Lab Laboratory Tests 06/05/22 07:22: White Blood Count 13.1H, Red Blood Count 4.06L, Hemoglobin 11.4L, Hematocrit 36L , Mean Corpuscular Volume 88, Mean Corpuscular Hemoglobin 28, Mean Corpuscular Hemoglobin Concent 32, Red Cell Distribution Width 16.2H, Platelet Count 193, Mean Platelet Volume 10.5, Immature Granulocyte % (Auto) 6, Neutrophils (%) (Auto) 75, Lymphocytes (%) (Auto) 9L, Monocytes (%) (Auto) 9, Eosinophils (%) (Auto) 0, Basophils (%) (Auto) 1, Neutrophils # (Auto) 9.8H, Lymphocytes # (Auto) 1.2, Monocytes # (Auto) 1.2H, Eosinophils # (Auto) 0.0, Basophils # (Auto) 0.1, Immature Granulocyte # (Auto) 0.8H, Sodium Level 137, Potassium Level 3.8, Chloride Level 101, Carbon Dioxide Level 27, Anion Gap 9, Blood Urea Nitrogen 37H, Creatinine 0.81, Estimat Glomerular Filtration Rate 97, BUN/Creatinine Ratio 46, Glucose Level 131H, Calcium Level 8.6, Corrected Calcium 9.3, Total Bilirubin 0.3, Aspartate Amino Transf (AST/SGOT) 20, Alanine Aminotransferase (ALT/SGPT) 34, Alkaline Phosphatase 56, Total Protein 5.4L, Albumin 3.1L Microbiology 05/26/22 MRSA Screen - Final, Complete MRSA not isolated 05/26/22 Urine Culture - Final, Complete NO GROWTH 05/26/22 Blood Culture - Final, Complete [place] turbata Assessment/Plan Assessment/Plan (1) Acute on chronic respiratory failure with hypoxemia Status: Acute Assessment & Plan: Intermittently requiring bipap still, secondary to COPD exacerbation and CHF exacerbation. Was admitted 02/12-03/06 this year with severe COPD exacerbation and was on ventilator for long course. Has recently gone through COVID infection as well. 06/05 discussed difficulty of managing/balancing his shortness of breath, diffuse pain and respiratory status. He wants more opiate pain medications but discussed that I am hesitant to send him home with oxycodone for diffuse pain as it is not clear how helpful that is and may interfere with respiratory drive. He wants to have no pain, no shortness of breath and also stay healthy and we discussed that those may not all be achievable. Will look into bipap for home, but discussed uncertain whether he will qualify. (2) HLD (hyperlipidemia) Status: Chronic Assessment & Plan: Continue home statin (3) Primary hypertension Status: Chronic (4) Pulmonary hypertension Status: Chronic Assessment & Plan: Suspect secondary to lung disease. (5) Paroxysmal atrial fibrillation Status: Chronic Assessment & Plan: Appreciate Cardiology recommendations. Tapering off of amiodarone, not on anticoagulation due to suspected A fib related to pneumonia previously. (6) Acute exacerbation of chronic obstructive pulmonary disease (COPD) Status: Acute Assessment & Plan: Remains on IV solumedrol with slow improvement. Continue Duonebs, resume home Stiolto 06/04 change to oral prednisone taper (7) Acute on chronic heart failure with preserved ejection fraction (HFpEF) Status: Acute Assessment & Plan: Appreciate Cardiology recommendations. EF normal 01/2022. BNP elevated and CXR initially with edema on this admit, now resolved. IV lasix transitioning to oral per Cards. 06/04 discussed while peripheral edema persists, his CXR was clear and that overuse of diuretic can cause renal dysfunction (8) Right lower lobe consolidation Status: Acute Assessment & Plan: Treated with 5 days of meropenem, CXR now clear. One blood culture with oerskovia turbata. (9) DVT prophylaxis Status: Acute Assessment & Plan: Enoxaparin LINDA THOMPSON MD Jun 05, 2022 17:14
[2022-06-05] MEDS: diphenhydrAMINE 25 MG TAB (BENADRYL) PO PRN (20:20)
[2022-06-05] MEDS: MELATONIN 3 MG TABLET PO PRN (20:20)
[2022-06-06] MEDS: ALPRAZolam 0.25 MG (XANAX) TAB PO PRN ×4 (00:21→12:21)
[2022-06-06] MEDS: RT-ALBUTEROL/IPRATROPIUM 3 ML (DUONEB) VIAL INH SCH ×3 (02:37→10:01)
[2022-06-06 03:40] VITALS: BP 166/79
[2022-06-06] MEDS: predniSONE 10 MG TAB PO SCH (05:48)
[2022-06-06 06:40] LABS: ALBUMIN 3.2 GM/DL (3.2-4.5); POTASSIUM 4.1 MMOL/L (3.6-5.0)
[2022-06-06 06:41] LABS: CALCIUM 8.7 MG/DL (8.5-10.1)
[2022-06-06 06:43] LABS: TOTAL PROTEIN 5.6 GM/DL (6.4-8.2)
[2022-06-06 06:44] LABS: BILIRUBIN,TOTAL 0.4 MG/DL (0.1-1.0)
[2022-06-06 06:46] LABS: CREATININE SERUM 0.84 MG/DL (0.60-1.30)
[2022-06-06 08:27] VITALS: BP 130/88
[2022-06-06] MEDS: AMIODARONE 200 MG (CORDARONE) TAB PO SCH (08:29)
[2022-06-06] MEDS: FUROSEMIDE 40 MG (LASIX) TAB PO SCH (08:30)
[2022-06-06] MEDS: DOCUSATE SODIUM 100 MG (COLACE) CAP PO SCH (08:30)
[2022-06-06] MEDS: SENNOSIDES 8.6 MG (SENOKOT) TAB PO SCH (08:30)
[2022-06-06] MEDS: dilTIAZem120 MG (CARDIZEM CD) CAP PO SCH (08:30)
[2022-06-06] MEDS: ENOXAPARIN 40 MG/0.4 ML (LOVENOX) SYR SC SCH (08:30)
[2022-06-06] MEDS: NICOTINE 21 MG (NICODERM) PATCH TD SCH (08:31)
[2022-06-06 08:41] LABS: BASOPHILS # (AUTO) 0.1 10^3/uL (0.0-0.1); BASOPHILS % (AUTO) 0 % (0-10); EOSINOPHILS % (AUTO) 0 % (0-10); HEMATOCRIT 38 % (40-54); LYMPHOCYTES # (AUTO) 1.4 10^3/uL (1.0-4.0); LYMPHOCYTES % (AUTO) 8 % (12-44); MEAN CORPUSCULAR HEMOGLOBIN 28 pg (25-34); MEAN CORPUSCULAR HGB CONC 32 g/dL (32-36); MEAN CORPUSCULAR VOLUME 89 fL (80-99); MEAN PLATELET VOLUME 10.2 fL (9.0-12.2); MONOCYTES # (AUTO) 1.2 10^3/uL (0.0-1.0); MONOCYTES % (AUTO) 8 % (0-12); NEUTROPHILS # (AUTO) 12.6 10^3/uL (1.8-7.8); NEUTROPHILS % (AUTO) 78 % (42-75); PLATELET COUNT 217 10^3/uL (130-400); WHITE BLOOD COUNT 16.2 10^3/uL (4.3-11.0)
[2022-06-06 09:15] LABS: BAND NEUTROPHILS 1 %; BASOPHILS % (MANUAL) 0 %; EOSINOPHILS % (MANUAL) 0 %; LYMPHOCYTES % (MANUAL) 5 %; MONOCYTES % (MANUAL) 7 %; MYELOCYTES % 2 %; NEUTROPHILS % (MANUAL) 85 %
[2022-06-06 09:16] LABS: ANISOCYTOSIS SLIGHT
[2022-06-06] MEDS: UMECLIDINIUM BROMIDE (INCRUSE ELLIPTA) 7'S IH SCH (10:01)
--- NOTE | 2022-06-06 11:14 | Cardiology Progress Note ---
Progress Note-Cardiology Events since last exam Date Seen by Provider: Jun 06, 2022 Time Seen by Provider: 11:12 Events since last exam I am following him due to atrial fibrillation and heart failure. He was up walking around in his room. He plans to be discharged to home today. He still has a fair amount of swelling in his legs. He feels as though his chronic shortness of breath is about back to his baseline. He denies chest pain, palpitations, or syncope. Certain portions of this document may have been dictated utilizing voice recognition technology. Inherent to this technology, typographical and grammatical errors may exist. As much as I am diligent to identify and correct these mistakes, some errors may remain in the document. Vitals Last set of Vitals Signs Vital Signs 06/06/22 13:10 Temp 36.5 Pulse 93 Resp 20 B/P (MAP) 143/84 Pulse Ox 97 O2 Delivery High Flow N/C O2 Flow Rate 5.00 Labs Labs Laboratory Tests 06/06/22 06:13 06/06/22 08:25 Exam Vital Signs Vital Signs Date Time Temp Pulse Resp B/P (MAP) Pulse Ox O2 Delivery O2 Flow Rate FiO2 06/06/22 13:10 36.5 93 20 143/84 97 High Flow N/C 5.00 Physical Exam General: Alert. No acute distress. He is wearing oxygen by nasal cannula. He is obese. Eye: No xanthelasma. HENT: Normocephalic. Neck: Jugular venous pressure does not appear elevated. Respiratory: Lungs are clear to auscultation but with diffusely decreased breath sounds. Respirations are non-labored. Breath sounds are equal. Symmetrical chest wall expansion. Cardiovascular: Normal rate. Regular rhythm. Distant S1/S2. No murmur. No gallop. 1-2+ bilateral pretibial edema, more evident in his feet. Gastrointestinal: Soft. Normal bowel sounds. Skin: Warm. Dry. Neurologic: Alert and oriented to person, place, time. Cranial nerves 3-11 grossly intact. Psychiatric: Cooperative. Appropriate mood & affect. Labs Laboratory Tests Test 06/06/22 06:13 06/06/22 08:25 Range/Units Sodium Level 139 135-145 MMOL/L Potassium Level 4.1 3.6-5.0 MMOL/L Chloride Level 102 98-107 MMOL/L Carbon Dioxide Level 27 21-32 MMOL/L Anion Gap 10 5-14 MMOL/L Blood Urea Nitrogen 35 H 7-18 MG/DL Creatinine 0.84 0.60-1.30 MG/DL Estimat Glomerular Filtration Rate 96 BUN/Creatinine Ratio 42 Glucose Level 148 H 70-105 MG/DL Calcium Level 8.7 8.5-10.1 MG/DL Corrected Calcium 9.3 8.5-10.1 MG/DL Total Bilirubin 0.4 0.1-1.0 MG/DL Aspartate Amino Transf (AST/SGOT) 35 H 5-34 U/L Alanine Aminotransferase (ALT/SGPT) 37 0-55 U/L Alkaline Phosphatase 56 40-136 U/L Total Protein 5.6 L 6.4-8.2 GM/DL Albumin 3.2 3.2-4.5 GM/DL White Blood Count 16.2 H 4.3-11.0 10^3/uL Red Blood Count 4.25 L 4.30-5.52 10^6/uL Hemoglobin 12.0 L 13.3-17.7 g/dL Hematocrit 38 L 40-54 % Mean Corpuscular Volume 89 80-99 fL Mean Corpuscular Hemoglobin 28 25-34 pg Mean Corpuscular Hemoglobin Concent 32 32-36 g/dL Red Cell Distribution Width 16.3 H 10.0-14.5 % Platelet Count 217 130-400 10^3/uL Mean Platelet Volume 10.2 9.0-12.2 fL Immature Granulocyte % (Auto) 6 % Neutrophils (%) (Auto) 78 H 42-75 % Lymphocytes (%) (Auto) 8 L 12-44 % Monocytes (%) (Auto) 8 0-12 % Eosinophils (%) (Auto) 0 0-10 % Basophils (%) (Auto) 0 0-10 % Neutrophils # (Auto) 12.6 H 1.8-7.8 10^3/uL Lymphocytes # (Auto) 1.4 1.0-4.0 10^3/uL Monocytes # (Auto) 1.2 H 0.0-1.0 10^3/uL Eosinophils # (Auto) 0.0 0.0-0.3 10^3/uL Basophils # (Auto) 0.1 0.0-0.1 10^3/uL Immature Granulocyte # (Auto) 1.0 H 0.0-0.1 10^3/uL Neutrophils % (Manual) 85 % Lymphocytes % (Manual) 5 % Monocytes % (Manual) 7 % Eosinophils % (Manual) 0 % Basophils % (Manual) 0 % Myelocytes % 2 % Band Neutrophils 1 % Anisocytosis SLIGHT Diagnosis/Problems Diagnosis/Problems (1) Acute on chronic heart failure with preserved ejection fraction (HFpEF) Status: Acute Assessment & Plan: He is probably close to his baseline at this point in time. It is difficult to determine his functional class due to his severe chronic obstructive pulmonary disease. From a cardiac standpoint, I agree that he is ready to be discharged home today. He should continue on furosemide 40 mg daily at home. I have asked the staff to get him a follow-up appointment to see me in 1 week. (2) Paroxysmal atrial fibrillation Status: Chronic Assessment & Plan: He remains in sinus rhythm on amiodarone. I decreased the amiodarone to 200 mg once daily at the time of admission. I will plan to taper this off as an outpatient. (3) Primary hypertension Status: Chronic Assessment & Plan: Continue diltiazem which he has been taking for hypertension and the previous atrial fibrillation. (4) Mixed hyperlipidemia Status: Chronic Assessment & Plan: Continue atorvastatin. (5) Pulmonary hypertension Status: Chronic Assessment & Plan: His echocardiogram from earlier this year showed severe pulmonary hypertension. This is most likely due to his underlying chronic obstructive pulmonary disease. This will need to be followed longitudinally. He may benefit from home oxygen if he does not already have this in place. (6) Ventricular tachycardia Status: Acute Assessment & Plan: He also had some possible ventricular tachycardia during his previous hospitalization earlier this year. He has not been having any significant ventricular arrhythmias during this hospitalization. I will plan on an ischemic evaluation following discharge, assuming he makes it to his follow-up appointments with me. I am not sure he would tolerate a pharmacologic stress test given his current pulmonary status. (7) Acute on chronic respiratory failure with hypoxemia Status: Acute Assessment & Plan: Most likely due to an exacerbation of his chronic obstructive pulmonary disease as well as some superimposed heart failure. CAROL LEWIS JR, MD Jun 06, 2022 11:14
[2022-06-06 11:22] VITALS: BP 143/84
[2022-06-06] MEDS ORDERED: AMIO200T65 PO (12:38)
[2022-06-06] MEDS ORDERED: PRD10T PO (12:38)
[2022-06-06] MEDS ORDERED: DILT-27 PO (12:38)
--- NOTE | 2022-06-06 12:42 | Discharge Summary ---
Discharge Summary Hospital Course Problems/Diagnosis: (1) Acute on chronic respiratory failure with hypoxemia Status: Acute Assessment & Plan: Intermittently requiring bipap still, secondary to COPD exacerbation and CHF exacerbation. Was admitted 02/12-03/06 this year with severe COPD exacerbation and was on ventilator for long course. Has recently gone through COVID infection as well. 06/05 discussed difficulty of managing/balancing his shortness of breath, diffuse pain and respiratory status. He wants more opiate pain medications but discussed that I am hesitant to send him home with oxycodone for diffuse pain as it is not clear how helpful that is and may interfere with respiratory drive. He wants to have no pain, no shortness of breath and also stay healthy and we discussed that those may not all be achievable. Looked into bipap but he did not qualify. Discussed would recommend sleep study outpatient. (2) HLD (hyperlipidemia) Status: Chronic Assessment & Plan: Continue home statin (3) Primary hypertension Status: Chronic (4) Pulmonary hypertension Status: Chronic Assessment & Plan: Suspect secondary to lung disease. (5) Paroxysmal atrial fibrillation Status: Chronic Assessment & Plan: Appreciate Cardiology recommendations. Tapering off of amiodarone, continue diltiazem, not on anticoagulation due to suspected A fib related to pneumonia previously. (6) Acute exacerbation of chronic obstructive pulmonary disease (COPD) Status: Acute Assessment & Plan: Remained on IV solumedrol for quite sme time with slow im provement. Continue Duonebs, resume home Stiolto 06/04 changed to oral prednisone taper which was continued on d/c. (7) Acute on chronic heart failure with preserved ejection fraction (HFpEF) Status: Acute Assessment & Plan: Appreciate Cardiology recommendations. EF normal 01/2022. BNP elevated and CXR initially with edema on this admit, now resolved. IV lasix transitioning to oral per Cards. 06/04 discussed while peripheral edema persists, his CXR was clear and that overuse of diuretic can cause renal dysfunction 06/06 discharged on home lasix 40 mg daily. (8) Right lower lobe consolidation Status: Resolved Resolution Date/Time: 06/06/22 @ 12:41 Assessment & Plan: Treated with 5 days of meropenem, CXR now clear. One blood culture with oerskovia turbata, of uncertain significance. Hospital Course Date of Admission: May 26, 2022 at 08:36 Admission Diagnosis : [facility] Date of Discharge: 06/06/22 Discharge Diagnosis: SEe problem list Hospital Course: See problem list Labs and Pending Lab Test: Laboratory Tests 06/06/22 06:13: Sodium Level 139, Potassium Level 4.1, Chloride Level 102, Carbon Dioxide Level 27, Anion Gap 10, Blood Urea Nitrogen 35H, Creatinine 0.84, Estimat Glomerular Filtration Rate 96, BUN/Creatinine Ratio 42, Glucose Level 148H, Calcium Level 8.7, Corrected Calcium 9.3, Total Bilirubin 0.4, Aspartate Amino Transf (AST/SGOT) 35H, Alanine Aminotransferase (ALT/SGPT) 37, Alkaline Phosphatase 56, Total Protein 5.6L, Albumin 3.2 06/06/22 08:25: White Blood Count 16.2H, Red Blood Count 4.25L, Hemoglobin 12.0L, Hematocrit 38L , Mean Corpuscular Volume 89, Mean Corpuscular Hemoglobin 28, Mean Corpuscular Hemoglobin Concent 32, Red Cell Distribution Width 16.3H, Platelet Count 217, Mean Platelet Volume 10.2, Immature Granulocyte % (Auto) 6, Neutrophils (%) (Auto) 78H, Lymphocytes (%) (Auto) 8L, Monocytes (%) (Auto) 8, Eosinophils (%) (Auto) 0, Basophils (%) (Auto) 0, Neutrophils # (Auto) 12.6H, Lymphocytes # (Auto) 1.4, Monocytes # (Auto) 1.2H, Eosinophils # (Auto) 0.0, Basophils # (Auto) 0.1, Immature Granulocyte # (Auto) 1.0H, Neutrophils % (Manual) 85, Lymphocytes % (Manual) 5, Monocytes % (Manual) 7, Eosinophils % (Manual) 0, Basophils % (Manual) 0, Myelocytes % 2, Band Neutrophils 1, Anisocytosis SLIGHT Microbiology 05/26/22 MRSA Screen - Final, Complete MRSA not isolated 05/26/22 Urine Culture - Final, Complete NO GROWTH 05/26/22 Blood Culture - Final, Complete [place] turbata Home Meds Active Reported Albuterol Sulfate 2.5 Mg/3 Ml (0.083 %) Vial.neb 2.5 Mg NEB Q6H PRN Stiolto Respimat Inhal Loman (Tiotropium Br/Olodaterol HCl) 2.5 Mcg-2.5 Mcg/Actuation Mist.inhal 2 Puff INH DAILY Levofloxacin 750 Mg Tablet 750 Mg PO DAILY FILLED 05-22-2022 #07/29 DAY SUPPLY Prednisone 20 Mg Tab Mg PO DAILY FILLED 05-22-2022 #09/01 DAY SUPPLY TAKE 2 TABS DAILY X 3 DAYS, THEN 1 TAB DAILY X 3 DAYS, THEN TAB DAILY UNTIL ALL TAKEN Hydrocodone-Acetamin 10-325 mg (Hydrocodone/Acetaminophen) 10 Mg-325 Mg Tablet 1 Each PO TID PRN Ferrous Sulfate 325 Mg (65 Mg Iron) Tablet 325 Mg PO Q48H Multivitamin 1 Each Tablet 1 Each PO DAILY Diltiazem ER (Diltiazem HCl) 120 Mg Capsule.er 120 Mg PO DAILY Potassium Chloride 20 Meq Tab.er.prt 20 Meq PO DAILY Magnesium Oxide 400 Mg Tablet 400 Mg PO HS Pantoprazole Sodium 40 Mg Tablet.dr 40 Mg PO HS Mucinex (Guaifenesin) 1,200 Mg Tab.er.12h 1,200 Mg PO BID Furosemide 40 Mg Tablet 40 Mg PO DAILY Atorvastatin Calcium 20 Mg Tablet 20 Mg PO DAILY Assessment/Pt DC Instructions Follow up with Cardiology within a week or two of discharge. Follow up with your primary provider within a week of discharge. Talk to your primary provider about getting a sleep study. Discharge Diet: Low Sodium Diet Activity as Tolerated: Yes Discharge Physical Examination Allergies: Coded Allergies: No Known Drug Allergies (Unverified , 11/26/21) General Appearance: No Apparent Distress Respiratory: Lungs Clear, Normal Breath Sounds Cardiovascular: Regular Rate, Rhythm Extremity: Pedal Edema Skin: Normal Color, Warm/Dry Neurologic/Psychiatric: Alert, Normal Mood/Affect LINDA THOMPSON MD Jun 06, 2022 12:42
--- NOTE | 2022-06-06 12:43 | D/C HH Face to Face Order ---
D/C Face to Face Orders Instructions for Patient Patient Instructions/FollowUp: Follow up with Cardiology within 1-2 weeks and with primary provider within a week. Physician to follow Patient: BRISEK Discharge Diet for Home: Low Sodium Diet Patient Problems: Acute on chronic CHF Acute COPD exacerbation Pneumonia- resolved Paroxysmal atrial fibrillation Patient Data-Allergies,Ht & Wt Patient Allergies: Coded Allergies: No Known Drug Allergies (Unverified , 11/26/21) Home Health Need/Face to Face Date of Face to Face: Jun 06, 2022 Clinical Findings: Shortness of breath I have seen Pt [id number]: Yes Discharged To: Home Diagnosis/Conditions: See patient problems Patient is Homebound due to: Shortness of breath/distress Homebound Status Due to the above stated illness, injury or surgical procedure (medical c ondition or diagnosis) and associated clinical findings, the patient is homebound because of his/her inability to leave home except with aid of a supportive device and/or person AND leaving the home requires a considerable and taxing effort or is medically contraindicated. Pt req the following assistanc: Aid of another person Home Health Nursing Orders Home Health Services Order: Nursing Services, Physical Therapy-Evaluate & Treat Home Health Infusion Therapy Line Start Date: May 29, 2022 Certify Stmt I certify that this patient is under my care and that I, a nurse practitioner or a physician; a assistant librarian working with me, had a face to face encounter that - meets the physician face to face encounter requirements with this patient as dated. LINDA THOMPSON MD Jun 06, 2022 12:43
[2022-06-06 13:10] VITALS: BP 143/84
== END 2022-06-06 13:10 | disposition home health service (06) | DRG 291 ==
LOC: EDUNIT# 06:13 → ER 06:14 → ICU 08:36 → 4TH 06-02 14:02
PROVIDERS: ADMIT Internal Medicine; ATTEND Family Medicine
PROC: 5A09357 Assistance with Respiratory Ventilation, Less than 24 Consecutive Hours, Continuous Positive Airway Pressure (ICD-10-PCS; 2022-05-26)
PROC: 5A0955A Assistance with Respiratory Ventilation, Greater than 96 Consecutive Hours, High Flow/Velocity Cannula (ICD-10-PCS; principal; 2022-05-28)
DX: I11.0 Hypertensive heart disease with heart failure (principal); I50.33 Acute on chronic diastolic (congestive) heart failure; J96.21 Acute and chronic respiratory failure with hypoxia; J18.1 Lobar pneumonia, unspecified organism; J43.9 Emphysema, unspecified; E78.2 Mixed hyperlipidemia; I27.20 Pulmonary hypertension, unspecified; I48.0 Paroxysmal atrial fibrillation; M06.9 Rheumatoid arthritis, unspecified; M19.91 Primary osteoarthritis, unspecified site; K21.9 Gastro-esophageal reflux disease without esophagitis; F32.A Depression, unspecified; G47.33 Obstructive sleep apnea (adult) (pediatric); Z85.46 Personal history of malignant neoplasm of prostate; I25.2 Old myocardial infarction; Z86.16 Personal history of COVID-19; Z79.52 Long term (current) use of systemic steroids; Z87.891 Personal history of nicotine dependence
CPT/HCPCS: 36410; 36415; 36600; 71045; 76937; 80053; 80061; 81000; 82805; 83605; 83735; 83880; 84100; 84145; 84443; 85007; 85025; 85027; 85610; 85730; 86141; 87040; 87081; 87088; 93005; 94640; 94660; 94664; 94760; 96361; 96374; 96375; 99291

== ENCOUNTER 2022-06-07 08:28 | Observation (INO) | payer MEDICARE, MEDICAID ==
[~2022-06-07] VITALS: Ht 165.1 cm; Wt 89.2 kg
[~2022-06-07 08:28] MED LIST changes: +ALBU2.5V4 NEB; +DILT-27 PO; +HYDR-3820 PO; +LEVO750T39 PO; +PRD10T PO; +PRD20T PO; +TIOT4MIS3 INH
[2022-06-07] MEDS ORDERED: morphine INJ 4 MG/ML 1 ML (VIAL/SYRINGE) IV PRN (10:30)
[2022-06-07] MEDS ORDERED: NITROGLYCERIN 0.4 MG SL TABS BTL 25'S SL PRN (10:30)
[2022-06-07] MEDS ORDERED: ONDANSETRON 4 MG/2 ML (SDV) Z0FRAN IVP PRN (10:30)
[2022-06-07] MEDS ORDERED: PATIENT MAY USE OWN MEDS, ALL PO SCH (10:30)
--- NOTE | 2022-06-07 11:50 | History & Physical ---
HPI History of Present Illness: Pt states he woke up around 3 am, was sleeping on the couch and needed to have a bowel movement, he rolled off the couch and fell on to the floor which hurt his ribs, he called his who got him up, but then he felt short of breath and though he was going to imminently get worse so he told her to call an ambulance. At the ER in [place], he received a breathing treatment and his oxygen saturation was stable on 4 lpm which is his baseline oxygen. However, he had an elevated troponin that trended up. He denies chest pain. He states his swelling in his legs is slightly improved but they are still sore. He was discharged yesterday after a stay following respiratory failure requiring intubation due to CHF exacerbation and COPD exacerbation, and he was still on prednisone taper at d/c and oral lasix and his last CXR had showed no significant pulmonary edema, he did still have peripheral edema at d/c and had been complaining of diffuse body pain and requesting frequent opiate doses which were not continued on discharge due to his tenuous respiratory status and lack of clear benefit of opiates for this type of pain. Source: patient Date seen by provider: Jun 07, 2022 Time Seen by Provider: 10:45 [facility] Admitting Physician: Allegra Colorado MD Attending Physician: Allegra Colorado MD Consult Date of Admission Jun 07, 2022 at 10:27 Home Medications Home Medications Reviewed patient Home Medication Reconciliation performed by pharmacy medication reconciliations benefits technician and/or nursing. Patients Allergies have been reviewed. 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: [employer] Past Medical History PMHx: COPD with baseline oxygen need 4L HTN HLD Iron Def anemia CHF Review of Systems ([facility]) Constitutional: No fever Respiratory: dyspnea on exertion, short of breath Cardiovascular: No chest pain Musculoskeletal: muscle pain (diffuse) [facility]am[facility] Physical Exam Vital Signs VS - Last 72 Hours, by Label 06/07/22 06/07/22 11:02 12:43 Pulse 79 O2 Delivery Nasal Cannula O2 Flow Rate 4.00 Capillary Refill : General Appearance: no apparent distress Respiratory: wheezing Cardiovascular: regular rate, rhythm Gastrointestinal: normal bowel sounds, non tender, soft Extremities: pedal edema (1+ to mid-calf) Neurologic/Psychiatric: alert, normal mood/affect Skin: warm/dry Assessment/Plan Assessment/Plan Admission Status: Observation (1) Elevated troponin Status: Acute Assessment & Plan: Suspect type II MT, Cardiology consulted, appreciate recommendations. Check EKG, repeat troponin. (2) Paroxysmal atrial fibrillation Status: Chronic Assessment & Plan: History of a fib, has been in sinus rhythm, not on anticoagulation due to one previous episode of a fib thought to be related to pneumonia. Appreciate Cardiology recommendations. (3) Mixed hyperlipidemia Status: Chronic (4) Primary hypertension Status: Chronic (5) Chronic heart failure with preserved ejection fraction (HFpEF) Status: Chronic (6) COPD (chronic obstructive pulmonary disease) Assessment & Plan: Recently discharged after exacerbation, respiratory status appears similar to d/c, resume oral prednisone. (7) DVT prophylaxis Status: Acute Assessment & Plan: Enoxaparin, treatment dose given prior to admission here. ALLEGRA COLORADO MD Jun 07, 2022 11:50
[2022-06-07 12:00] VITALS: BP 144/99
--- NOTE | 2022-06-07 13:11 | Consultation-Cardiology ---
HPI-Cardiology Cardiology Consultation: Date of Consultation 06/07/22 Date of Admission 06/07/22 Attending Physician [facility] Admitting Physician Admitting Physician: Linda Thompson MD Attending Physician: Sherri Arnold DO Consulting Physician CAROL LEWIS JR, MD HPI: Time Seen by a Provider: 13:07 Chief Complaint: REASON FOR CONSULTATION: Shortness of breath and abnormal troponin level. I had the pleasure of seeing Audie on the cardiac stepdown unit at [facility] in [place], [place] today. He is well-known to me from previous hospitalizations. He was actually just discharged from the hospital yesterday following a somewhat prolonged course. He had been treated for acute on chronic heart failure with preserved ejection fraction as well as an exacerbation of chronic obstructive pulmonary disease with superimposed pneumonia. Yesterday when he went home, he was feeling okay. However, early this morning he woke up from sleep to have a bowel movement. When he walked into the bathroom, he suddenly became very short of breath. He called for his who helped him get into the living room and then he used 2 nebulizer treatments. However, he was still short of breath and his called 911 and he was taken to an outside emergency room. During his evaluation in the outside emergency room, he was found to have an elevated troponin level. At that time, the outside hospital called our hospital to arrange for transfer. His breathing is now somewhat improved. He denies chest discomfort. He has chronic orthopnea and has been sleeping upright on his sofa for a number of years. He denies paroxysmal nocturnal dyspnea or palpitations. He has had some lightheaded spells but d enies any syncope. He has chronic, mild lower extremity edema that has been unchanged. Because of the abnormal troponin level, a cardiology consultation was requested. Certain portions of this document may have been dictated utilizing voice recognition technology. Inherent to this technology, typographical and grammatical errors may exist. As much as I am diligent to identify and correct these mistakes, some errors may remain in the document. Review of Systems-Cardiology Review of Systems Other comments Review of 10 organ systems is as per the history of present illness, otherwise negative. EOB-Xzdtuw-Ipcwam Hx Patient Social History Marrital Status: Smoking Status: Former Smoker Have you traveled recently?: No Alcohol Use?: No Pt feels they are or have been: No Immunizations Up To Date Date of Influenza Vaccine: Jul 26, 2021 Past Medical History PMH As described under Assessment. Family Medical History Family Medical History: He does not report a family history of premature coronary artery disease. Allergies and Home Medications Allergies Coded Allergies: No Known Drug Allergies (Unverified , 11/26/21) Patient Home Medication List Home Medication List Reviewed: Yes Albuterol Sulfate (Albuterol Sulfate) 2.5 Mg/3 Ml (0.083 %) Vial.neb, 2.5 MG NEB Q6H PRN for SHORTNESS OF BREATH, (Reported) Entered as Reported by: ADDIS ZAPATA on 05/27/22 1455 Last Action: Reviewed Amiodarone HCl (Amiodarone HCl) 200 Mg Tablet, 200 MG PO DAILY Prescribed by: LINDA THOMPSON on 06/06/22 1238 Last Action: Continued Atorvastatin Calcium (Atorvastatin Calcium) 20 Mg Tablet, 20 MG PO DAILY, (Reported) Entered as Reported by: GENIA CODY on 11/26/21 1307 Last Action: Continued Diltiazem HCl (Diltiazem 24Hr ER) 120 Mg Cap.er.24h, 240 MG PO DAILY Prescribed by: LINDA THOMPSON on 06/06/22 1238 Last Action: Continued Ferrous Sulfate (Ferrous Sulfate) 325 Mg (65 Mg Iron) Tablet, 325 MG PO Q48H, (Reported) Entered as Reported by: ADDIS ZAPATA on 02/13/22 1507 Last Action: Continued Furosemide (Furosemide) 40 Mg Tablet, 40 MG PO DAILY, (Reported) Entered as Reported by: GENIA CODY on 11/26/21 1307 Last Action: Continued Guaifenesin (Mucinex) 1,200 Mg Tab.er.12h, 1,200 MG PO BID, (Reported) Entered as Reported by: GENIA CODY on 11/26/21 130 Last Action: Converted Hydrocodone/Acetaminophen (Hydrocodone-Acetamin 10-325 mg) 10 Mg-325 Mg Tablet, 1 EACH PO TID PRN for PAIN-MODERATE (5-7), (Reported) Entered as Reported by: ROXANA WALLIS on 05/26/22 1309 Last Action: Continued Magnesium Oxide (Magnesium Oxide) 400 Mg Tablet, 400 MG PO HS, (Reported) Entered as Reported by: ADDIS ZAPATA on 02/13/221506 Last Action: Converted Multivitamin (Multivitamin) 1 Each Tablet, 1 EACH PO DAILY, (Reported) Entered as Reported by: ADDIS ZAPATA on 02/13/221506 Last Action: Converted Pantoprazole Sodium (Pantoprazole Sodium) 40 Mg Tablet.dr, 40 MG PO HS, (Reported) Entered as Reported by: GENIA CODY on 11/26/21 1307 Last Action: Continued Potassium Chloride (Potassium Chloride) 20 Meq Tab.er.prt, 20 MEQ PO DAILY, (Reported) Entered as Reported by: ADDIS ZAPATA on 02/13/221506 Last Action: Continued Prednisone (Prednisone) 10 Mg Tab, 0 PO UD Prescribed by: LINDA THOMPSON on 06/06/22 1238 Last Action: Held Tiotropium Br/Olodaterol HCl (Stiolto Respimat Inhal [place]) 2.5 Mcg-2.5 Mcg/Actuation Mist.inhal, 2 PUFF INH DAILY, (Reported) Entered as Reported by: ADDIS ZAPATA on 05/27/221454 Last Action: Converted Discontinued Medications Diltiazem HCl (Diltiazem ER) 120 Mg Capsule.er, 120 MG PO DAILY, (Reported) Entered as Reported by: ADDIS ZAPATA on 02/13/221506 Levofloxacin (Levofloxacin) 750 Mg Tablet, 750 MG PO DAILY, (Reported) Entered as Reported by: ADDIS ZAPATA on 05/27/221454 Prednisone (Prednisone) 20 Mg Tab, MG PO DAILY, (Reported) Entered as Reported by: ADDIS ZAPATA on 05/27/221454 Exam Vital Signs Vital Signs Date Time Temp Pulse Resp B/P (MAP) Pulse Ox O2 Delivery O2 Flow Rate FiO2 06/07/22 12:43 79 06/07/22 12:00 10 144/99 (114) 97 Nasal Cannula 4.00 Physical Exam General: Alert. No acute distress. Well nourished and appears stated age. He is wearing oxygen by nasal cannula. Eye: Extraocular movements are intact. Conjunctivae are clear. There are no xanthelasma. HENT: Normocephalic. Atraumatic. Carotid pulsations 2/2 without bruits. Neck: Jugular venous pressure does not appear elevated. No thyromegaly appreciated. Respiratory: Lungs have some scattered upper airway sounds and minimal wheezing. Respirations are non-labored. Breath sounds are equal. Symmetrical chest wall expansion. Cardiovascular: Normal rate. Regular rhythm. Distant S1/S2. No murmur. No gallop. Point of maximal impulse is not appear displaced. Good pulses equal in all extremities. 1+ bilateral pretibial edema. Gastrointestinal: Soft. Normal bowel sounds. Skin: Skin turgor is normal. There is no pallor. Musculoskeletal: No kyphosis or scoliosis appreciated. Neurologic: Alert and oriented to person, place, time. Cranial nerves 3-12 appear grossly intact. The patient has good motor tone strength in the upper and lower extremities bilaterally. Psychiatric: Cooperative. Appropriate mood & affect. Labs Laboratory Tests Test 06/07/22 11:06 06/07/22 13:39 Range/Units Troponin I 0.077 H <0.028 NG/ML D-Dimer 0.75 H 0.00-0.49 UG/ML ECG Impression ECG Comment Sinus rhythm with left atrial abnormality and possible old anteroseptal myocardial infarction. Diagnosis/Problems Diagnosis/Problems (1) Elevated troponin Status: Acute Assessment & Plan: He has a marginally elevated troponin level. His D-dimer level was also elevated which raises a concern about venous thrombosis but his CT angiogram of the chest did not reveal a pulmonary embolism and his lower extremity venous Doppler did not reveal deep venous thrombosis of either leg. As such, this could represent a non-ST elevation myocardial infarction. I recommend we proceed with cardiac catheterization. I have explained the benefits and risks of the procedure to the patient and his family and they are in agreement to proceed. (2) Paroxysmal atrial fibrillation Status: Chronic Assessment & Plan: He had atrial fibrillation during a previous hospitalization but has remained in sinus rhythm on amiodarone which I plan to taper as an outpatient. I do not have him on oral anticoagulation because the previous atrial fibrillation was short-lived and most likely provoked by an acute pulmonary infection when it initially occurred earlier this year. (3) Ventricular tachycardia Status: Acute Assessment & Plan: He also had ventricular tachycardia during a previous hospitalization. I was planning on a noninvasive ischemic evaluation but given the current clinical situation, we will proceed with a cardiac catheterization. (4) Acute on chronic heart failure with preserved ejection fraction (HFpEF) Status: Acute Assessment & Plan: Although his pulmonary status had improved prior to discharge on 06/06, he still does have some peripheral edema and this may be related to ongoing heart failure that was present at the time of this admission. (5) Primary hypertension Status: Chronic Assessment & Plan: Resume diltiazem. (6) Mixed hyperlipidemia Status: Chronic Assessment & Plan: Resume statin medication. (7) Pulmonary hypertension Status: Chronic Assessment & Plan: Most likely related to his underlying pulmonary disease and superimposed heart failure. This will be followed longitudinally. CAROL LEWIS JR, MD Jun 07, 2022 13:11
[2022-06-07] MEDS ORDERED: HYDROmorphone 2 MG/ML VIAL (DILAUDID) IV PRN (13:30)
[2022-06-07] MEDS: PANTOPRAZOLE 40 MG (PROTONIX) VIAL IV SCH (14:07)
[2022-06-07] MEDS ORDERED: NS 100 ML (IVPB) BAG IV ONE (14:30)
[2022-06-07] MEDS ORDERED: IOHEXOL 350 MG/ML 100 ML (OMNIPAQUE 350) VIAL IV ONE (14:30)
[2022-06-07] MEDS ORDERED: CATHETER FLUSH 10 ML SYR IV PRN (14:30)
[2022-06-07] MEDS ORDERED: HOLD METFORMIN - RECEIVED CONTRAST 20 ML VIAL IV SCH (14:30)
[2022-06-07] MEDS ORDERED: predniSONE 20 MG TAB PO NR ×2 (15:15→21:00)
--- NOTE | 2022-06-07 15:37 | Diagnostic Imaging Report ---
PROCEDURE: US Venous Lower Ext [place]. TECHNIQUE: Multiple real-time grayscale images were obtained over the lower extremities in various projections, bilaterally. Additional duplex Doppler and color Doppler images were also obtained. INDICATION: Lower extremity edema. FINDINGS: There is no evidence of right or left lower extremity DVT. Both lower extremity deep venous systems demonstrate normal compressibility with normal response to augmentation and Valsalva. No fluid collection or mass is detected. IMPRESSION: No evidence of right or left lower extremity DVT. Dictated by: Dictated on workstation # [id number]
--- NOTE | 2022-06-07 15:38 | Diagnostic Imaging Report ---
EXAMINATION: CT angiography of the chest. TECHNIQUE: Contrast enhanced thin section helical images were obtained through the chest with intravenous contrast timed for the optimal opacification of the arterial structures per CTA protocol. Post-processing, reconstructions and interpretation of angiographic images of the vessels was performed. 3D MIP reconstructions were performed and reviewed. All CT scans use one or more of the following dose optimizing techniques: Automated exposure control, MA and/or KvP adjustment based on a patient size and exam type, or iterative reconstruction. HISTORY: Shortness of breath and elevated D-dimer. COMPARISON: 02/12/2022. FINDINGS: There is no pulmonary embolism. Subsegmental vessels in the bases are obscured by respiratory motion. There is no edema or pneumonia. There is a tiny left effusion. No pneumothorax. There is unchanged scarring in the left apex. Lungs are moderately emphysematous. There is no axillary or supraclavicular lymphadenopathy. There is no mediastinal lymphadenopathy. Aortic valve is calcified which can be seen with aortic stenosis. There are mitral annular calcifications. There is gynecomastia. Heart size is normal. There are mild coronary artery calcifications. No pericardial effusion. Aorta is normal in caliber. Limited views of the upper abdomen are unremarkable. There are no suspicious osseous lesions. IMPRESSION: 1. No pulmonary embolism. 2. Tiny left pleural effusion. Dictated by: Dictated on workstation # [id number]
[2022-06-07] MEDS ORDERED: NS IV 1000 ML 1,000 ML IV ONE (16:00)
[2022-06-07] MEDS ORDERED: fentaNYL INJ 100 MCG/2 ML AMP ONE (16:05)
[2022-06-07] MEDS ORDERED: HEParin 1000 UNIT/ML (10ML VIAL) FOR BOLUS ONE (16:05)
[2022-06-07] MEDS ORDERED: MIDAZOLAM 5 MG/5 ML (VERSED) VIAL ONE (16:05)
[2022-06-07] MEDS ORDERED: VERAPAMIL 5 MG/2 ML (CALAN) VIAL IV ONE (16:05)
[2022-06-07] MEDS ORDERED: NITRO DRIP 25000 MCG/D5W 250 ML IV ONE (16:05)
[2022-06-07] MEDS ORDERED: LIDOCAINE 1% INJ 20 ML VIAL ONE (16:05)
[2022-06-07] MEDS ORDERED: HEParin (CATH LAB) 2,000 ML IV ONE (16:07)
[2022-06-07] MEDS ORDERED: NS IV 1000 ML 0 ML ONE (16:07)
--- NOTE | 2022-06-07 16:17 | Pre-Op Note & Conscious Sedat ---
Pre-Operative Progress Note Date H&P Reviewed: Jun 07, 2022 Time H&P Reviewed: 16:16 History & Physical: H&P Reviewed, Patient Examed, No changes noted Pre-Op Diagnosis: Possible NSTEMI and acute on chronic heart failure with preserved ejection. Conscious Sedation Pre-Proced ASA Score 3 For ASA 3 and 4: Consider anesthesia and medical clearance. Also, for patients with a history of failed moderate sedation consider anesthesia. Airway Lungs Heart ASA score ASA 1: a normal healthy patient ASA 2: a patient with a mild systemic disease (mid diabetes, controlled hypertension, obesity ASA 3: a patient with a severe systemic disease that limits activity (angina, COPD, prior Myocardial infarction) ASA 4: a patient with an incapacitating disease that is a constant threat to life (CHF, renal failure) ASA 5: a moribund patient not expected to survive 24 hrs. (ruptured aneurysm) ASA 6: a declared brain- patient whose organs are being harvested. For emergent operations, add the letter E after the classification Mallampati Classification Grade 2 Sedation Plan Analgesia, Amnesia, Plan communicated to team members, Discussed options with patient/fam, Discussed risks with patient/fam The patient is an appropriate candidate to undergo the planned procedure, sedation, and anesthesia. The patient immediately re-assessed prior to indication. Given his current clinical status, he is considered moderately frail. He has class III acute on chronic heart failure with preserved ejection fraction. CAROL LEWIS JR, MD Jun 07, 2022 16:17
[2022-06-07] MEDS ORDERED: NS IV 1000 ML 1,000 ML IV SCH (17:15)
--- NOTE | 2022-06-07 17:26 | Cardiac Cath Report ---
CARDIAC CATHETERIZATION DATE OF PROCEDURE: 06/07/2020. INDICATION: Abnormal troponin level, chest pain and abnormal electrocardiogram. HISTORY: The patient is a 66 year old male with no known history of coronary artery disease who does have a history of chronic heart failure with preserved ejection fraction, paroxysmal atrial fibrillation, nonsustained ventricular tachycardia and peripheral vascular disease with previous lower extremity revascularization. He had just been discharged from the hospital yesterday after being treated for pneumonia and heart failure. Early this morning he developed worsening shortness of breath accompanied by some chest tightness. He went to an outside emergency room and he was found to have an elevated troponin level. He was then transferred to our hospital. He had another elevated troponin level. Therefore, he is now referred for further evaluation with a cardiac catheterization. He also has a baseline abnormal electrocardiogram. Given his current clinical status, he is considered moderately frail. He has class III acute on chronic heart failure with preserved ejection fraction that was present at the time of this admission. PROCEDURES PERFORMED: 1. Diagnostic coronary angiography. PROCEDURE DESCRIPTION: After informed consent and in the fasting state, left heart catheterization was performed through the right radial artery utilizing a 6 Algerian system by percutaneous approach. A 5 Algerian JR4 catheter was utilized for the diagnostic portion of the procedure. The catheter was exchanged over a guidewire. Following the procedure, a vascular band was applied to the radial artery access site and the sheath was removed with good hemostasis. RESULTS: HEMODYNAMICS: The aortic pressure was 130/73 mmHg. The aortic valve was not crossed. CORONARY ANGIOGRAPHY: The coronary arteries were mildly calcified. Left main coronary artery: Free of significant disease. Left anterior descending coronary artery: Free of significant disease. Left circumflex coronary artery: There were 2 moderate-sized first and second obtuse marginal branches which were free of significant disease. There was a smaller third obtuse marginal branch which contained 3 sequential 50-70% stenoses with JAIME-3 flow. Right coronary artery: Dominant and there was a long 40% stenosis in the midsegment. IMPRESSION: 1. Normal central aortic pressure. 2. There was moderate to severe disease of the small third obtuse marginal branch and mild disease of the mid segment of the dominant right coronary artery but no acute thrombotic occlusion of any vessels to explain a non-ST elevation myocardial infarction. No intervention was performed. Medical therapy is recommended. 3. The patient is known to have normal left ventricular systolic function with an estimated ejection fraction of 65-70% by previous echocardiogram that was performed on 02/14/2022. 4. These findings may be consistent with a type II non-ST elevation myocardial infarction due to supply/demand mismatch from his chronic heart failure and underlying chronic pulmonary disease. Certain portions of this document may have been dictated utilizing voice rec ognition technology. Inherent to this technology, typographical and grammatical errors may exist. As much as I am diligent to identify and correct these mistakes, some errors may remain in the document. CAROL LEWIS JR, MD Jun 07, 2022 17:26
[2022-06-07] MEDS: RT-ALBUTEROL/IPRATROPIUM 3 ML (DUONEB) VIAL INH SCH ×2 (19:09→22:31)
[2022-06-07 20:00] VITALS: BP 134/78
[2022-06-07] MEDS ORDERED: ENOXAPARIN 40 MG/0.4 ML (LOVENOX) SYR SC SCH (20:00)
[2022-06-07] MEDS ORDERED: PANTOPRAZOLE 40 MG (PROTONIX) TAB PO SCH (21:00)
[2022-06-07] MEDS ORDERED: NON-FORMULARY MEDICATION 1 EA EA (Guaifenesin (Mucinex) 1,200 MG) PO SCH (21:00)
[2022-06-07] MEDS ORDERED: NON-FORMULARY MEDICATION 1 EA EA (Magnesium Oxide 400 MG) PO SCH (21:00)
[2022-06-07] MEDS ORDERED: MAGNESIUM OXIDE (MAG-OX)400 MG TAB PO SCH (21:00)
[2022-06-07] MEDS: guaiFENesin (MUCINEX) 600 MG TAB PO SCH (21:14)
[2022-06-08 00:02] VITALS: BP 118/78
[2022-06-08] MEDS: RT-ALBUTEROL/IPRATROPIUM 3 ML (DUONEB) VIAL INH SCH ×3 (03:16→10:53)
[2022-06-08 04:21] VITALS: BP 113/73
[2022-06-08 05:54] LABS: ALBUMIN 3.2 GM/DL (3.2-4.5)
[2022-06-08 05:55] LABS: POTASSIUM 3.9 MMOL/L (3.6-5.0)
[2022-06-08 05:56] LABS: CALCIUM 8.5 MG/DL (8.5-10.1)
[2022-06-08 05:57] LABS: TOTAL PROTEIN 5.4 GM/DL (6.4-8.2)
[2022-06-08 05:59] LABS: BILIRUBIN,TOTAL 0.4 MG/DL (0.1-1.0)
[2022-06-08 06:01] LABS: CREATININE SERUM 0.92 MG/DL (0.60-1.30)
[2022-06-08] MEDS ORDERED: MULTIVIT W/MINERALS TAB (THERAGRAN M) PO SCH (07:00)
[2022-06-08] MEDS ORDERED: predniSONE 20 MG TAB PO SCH (07:00)
[2022-06-08 08:00] VITALS: BP 118/61
[2022-06-08] MEDS ORDERED: KCL 20 MEQ TAB (K-DUR) PO SCH (08:00)
[2022-06-08] MEDS ORDERED: FERROUS SULF 325 MG (IRON) TAB PO SCH (08:00)
[2022-06-08] MEDS: PANTOPRAZOLE 40 MG (PROTONIX) VIAL IV SCH (08:27)
[2022-06-08] MEDS: guaiFENesin (MUCINEX) 600 MG TAB PO SCH (08:27)
[2022-06-08] MEDS ORDERED: dilTIAZem120 MG (CARDIZEM CD) CAP PO SCH (09:00)
[2022-06-08] MEDS ORDERED: NON-FORMULARY MEDICATION 1 EA EA (Multivitamin 1 EACH) PO SCH (09:00)
[2022-06-08] MEDS ORDERED: FUROSEMIDE 40 MG (LASIX) TAB PO SCH (09:00)
[2022-06-08] MEDS ORDERED: NON-FORMULARY MEDICATION 1 EA EA (Tiotropium Br/Olodaterol HCl (Stiolto Respimat Inhal Spr INH SCH (09:00)
[2022-06-08] MEDS ORDERED: AMIODARONE 200 MG (CORDARONE) TAB PO SCH (09:00)
[2022-06-08] MEDS ORDERED: ASPIRIN E.C. 81 MG (ECOTRIN) TAB PO SCH (09:00)
[2022-06-08] MEDS ORDERED: NITR0.4T42 SL (09:03)
[2022-06-08] MEDS ORDERED: ASPI-1238 PO (09:03)
--- NOTE | 2022-06-08 09:11 | Cardiology Progress Note ---
Progress Note-Cardiology Events since last exam Date Seen by Provider: Jun 08, 2022 Time Seen by Provider: 09:05 Events since last exam I am following him due to probable type II NSTEMI. He denies any chest disc omfort. He feels like his breathing is at his baseline. His peripheral edema improved but is not completely resolved. He denies palpitations or syncope. He wants to go home today. Certain portions of this document may have been dictated utilizing voice recognition technology. Inherent to this technology, typographical and grammatical errors may exist. As much as I am diligent to identify and correct these mistakes, some errors may remain in the document. Vitals Last set of Vitals Signs Vital Signs 06/08/22 08:00 Temp 36.4 Pulse 81 Resp 12 B/P (MAP) 118/61 (80) Pulse Ox 95 O2 Delivery Nasal Cannula O2 Flow Rate 4.00 Labs Labs Laboratory Tests 06/08/22 05:24 Exam Vital Signs Vital Signs Date Time Temp Pulse Resp B/P (MAP) Pulse Ox O2 Delivery O2 Flow Rate FiO2 06/08/22 08:00 36.4 81 12 118/61 (80) 95 Nasal Cannula 4.00 Physical Exam General: Alert. No acute distress. He is wearing oxygen by nasal cannula. Eye: No xanthelasma. HENT: Normocephalic. Neck: Jugular venous pressure does not appear elevated. Respiratory: Lungs have some scattered upper airway sounds. Respirations are non-labored. Breath sounds are equal. Symmetrical chest wall expansion. Cardiovascular: Normal rate. Regular rhythm. Distant S1/S2. No murmur. No gallop. 1+ bilateral pretibial edema slightly worse on the right. Gastrointestinal: Soft. Normal bowel sounds. Skin: Warm. Dry. Neurologic: Alert and oriented to person, place, time. Cranial nerves 3-11 grossly intact. Psychiatric: Cooperative. Appropriate mood & affect. Labs Laboratory Tests Test 06/07/22 11:06 06/07/22 13:39 06/08/22 05:24 Range/Units Troponin I 0.077 H <0.028 NG/ML D-Dimer 0.75 H 0.00-0.49 UG/ML Sodium Level 137 135-145 MMOL/L Potassium Level 3.9 3.6-5.0 MMOL/L Chloride Level 101 98-107 MMOL/L Carbon Dioxide Level 23 21-32 MMOL/L Anion Gap 13 5-14 MMOL/L Blood Urea Nitrogen 31 H 7-18 MG/DL Creatinine 0.92 0.60-1.30 MG/DL Estimat Glomerular Filtration Rate 92 BUN/Creatinine Ratio 34 Glucose Level 309 H 70-105 MG/DL Calcium Level 8.5 8.5-10.1 MG/DL Corrected Calcium 9.1 8.5-10.1 MG/DL Total Bilirubin 0.4 0.1-1.0 MG/DL Aspartate Amino Transf (AST/SGOT) 22 5-34 U/L Alanine Aminotransferase (ALT/SGPT) 35 0-55 U/L Alkaline Phosphatase 52 40-136 U/L Total Protein 5.4 L 6.4-8.2 GM/DL Albumin 3.2 3.2-4.5 GM/DL Diagnosis/Problems Diagnosis/Problems (1) Non-ST elevation myocardial infarction (NSTEMI), initial care episode Assessment & Plan: He had moderate to severe disease of the third obtuse sade inal branch noted on his cardiac catheterization from 06/07. There was no evidence of any thrombotic occlusions of any coronary vessel. I suspect he had a type II non-ST elevation myocardial infarction due to supply/demand mismatch from is acute on chronic respiratory failure with hypoxia. He is not on beta- jelena due to his severe underlying chronic obstructive pulmonary disease. He was supposed to be taking aspirin at home although this did not profile to his medication list. I will also add clopidogrel. He is on diltiazem for his history of atrial fibrillation which does have some antianginal properties. He should continue on statin medication. From a cardiac standpoint, he can be discharged home today. He should already have a follow-up appointment scheduled with me in the office that should have been made before he was discharged earlier this week. (2) Paroxysmal atrial fibrillation Status: Chronic Assessment & Plan: He had atrial fibrillation during a previous hospitalization but has remained in sinus rhythm on amiodarone which I plan to taper as an outpatient. I do not have him on oral anticoagulation because the previous atrial fibrillation was short-lived and most likely provoked by an acute pulm onary infection when it initially occurred earlier this year. (3) Ventricular tachycardia Status: Acute Assessment & Plan: He also had ventricular tachycardia during a previous hospitalization. He should continue on diltiazem. As above, he does not have any coronary artery disease that requires revascularization. (4) Acute on chronic heart failure with preserved ejection fraction (HFpEF) Status: Acute Assessment & Plan: Although his pulmonary status had improved prior to discharge on 06/06, he still does have some peripheral edema and this may be related to ongoing heart failure that was present at the time of this admission. He should continue on oral furosemide at home. (5) Primary hypertension Status: Chronic Assessment & Plan: Continue diltiazem. (6) Mixed hyperlipidemia Status: Chronic Assessment & Plan: I will increase his dose of atorvastatin in light of the probable type II non-ST elevation myocardial infarction and now diagnosed with coronary artery disease during this hospitalization. (7) Coronary artery disease with unstable angina pectoris Assessment & Plan: As above. He did have an echocardiogram earlier in the year that showed a normal ejection fraction. (8) Pulmonary hypertension Status: Chronic Assessment & Plan: Most likely related to his underlying pulmonary disease and superimposed heart failure. This will be followed longitudinally. (9) Peripheral arterial disease Assessment & Plan: From his description he had a previous femorofemoral bypass and possibly a stent in one of his legs. He is asymptomatic at this point in regards to the peripheral vascular disease. Recommend he continue on aspirin and statin medication. CAROL LEWIS JR, MD Jun 08, 2022 09:11
[2022-06-08] MEDS ORDERED: CLOPIDOGREL 300 MG (PLAVIX) TABLET PO ONE (09:15)
[2022-06-08] MEDS ORDERED: PRD10T PO (09:49)
--- NOTE | 2022-06-08 09:50 | Discharge Summary ---
Discharge Summary Hospital Course Was the Problem List Reviewed?: Yes Problems/Dx: (1) Non-ST elevation myocardial infarction (NSTEMI), initial care episode (2) Paroxysmal atrial fibrillation Status: Chronic (3) Ventricular tachycardia Status: Acute (4) Acute on chronic heart failure with preserved ejection fraction (HFpEF) Status: Acute (5) Primary hypertension Status: Chronic (6) Mixed hyperlipidemia Status: Chronic (7) Coronary artery disease with unstable angina pectoris (8) Pulmonary hypertension Status: Chronic (9) Peripheral arterial disease Hospital Course Date of Admission: Jun 07, 2022 at 10:27 Admission Diagnosis : [facility] Date of Discharge: 06/08/22 Discharge Diagnosis: NSTEMI with mild coronary artery disease on catheterization Hospital Course: Brief course after he was admitted back from [facility] with an NSTEMI cardiac catheterization performed revealing only mild disease but likely a type II NSTEMI from severe lung disease. Overall prognosis remains poor. Labs and Pending Lab Test: Laboratory Tests 06/07/22 11:06: Troponin I 0.077H 06/07/22 13:39: D-Dimer 0.75H 06/08/22 05:24: White Blood Count [Pending], Red Blood Count [Pending], Hemoglobin [Pending], Hematocrit [Pending], Mean Corpuscular Volume [Pending], Mean Corpuscular Hemoglobin [Pending], Mean Corpuscular Hemoglobin Concent [Pending], Red Cell D istribution Width [Pending], Platelet Count [Pending], Mean Platelet Volume [Pending], Neutrophils (%) (Auto) [Pending], Lymphocytes (%) (Auto) [Pending], Monocytes (%) (Auto) [Pending], Eosinophils (%) (Auto) [Pending], Basophils (%) (Auto) [Pending], Neutrophils # (Auto) [Pending], Lymphocytes # (Auto) [Pending], Monocytes # (Auto) [Pending], Eosinophils # (Auto) [Pending], Basop hils # (Auto) [Pending], Sodium Level 137, Potassium Level 3.9, Chloride Level 101, Carbon Dioxide Level 23, Anion Gap 13, Blood Urea Nitrogen 31H, Creatinine 0.92, Estimat Glomerular Filtration Rate 92, BUN/Creatinine Ratio 34, Glucose Level 309H, Calcium Level 8.5, Corrected Calcium 9.1, Total Bilirubin 0.4, Aspartate Amino Transf (AST/SGOT) 22, Alanine Aminotransferase (ALT/SGPT) 35, Alkaline Phosphatase 52, Total Protein 5.4L, Albumin 3.2 Home Meds Active Aspirin EC (Aspirin) 81 Mg Tablet.dr 81 Mg PO DAILY Nitroglycerin 0.4 Mg Tab.subl 0.4 Mg SL UD PRN Prednisone 10 Mg Tab 0 PO UD Take 5 tabs(50mg)daily, decrease by 1 tab(10mg) every other day. Diltiazem 24Hr ER (Diltiazem HCl) 120 Mg Cap.er.24h 240 Mg PO DAILY Amiodarone HCl 200 Mg Tablet 200 Mg PO DAILY Reported Albuterol Sulfate 2.5 Mg/3 Ml (0.083 %) Vial.neb 2.5 Mg NEB Q6H PRN Stiolto Respimat Inhal Melbeta (Tiotropium Br/Olodaterol HCl) 2.5 Mcg-2.5 Mcg/Actuation Mist.inhal 2 Puff INH DAILY Hydrocodone-Acetamin 10-325 mg (Hydrocodone/Acetaminophen) 10 Mg-325 Mg Tablet 1 Each PO TID PRN Ferrous Sulfate 325 Mg (65 Mg Iron) Tablet 325 Mg PO Q48H Multivitamin 1 Each Tablet 1 Each PO DAILY Potassium Chloride 20 Meq Tab.er.prt 20 Meq PO DAILY Magnesium Oxide 400 Mg Tablet 400 Mg PO HS Pantoprazole Sodium 40 Mg Tablet.dr 40 Mg PO HS Mucinex (Guaifenesin) 1,200 Mg Tab.er.12h 1,200 Mg PO BID Furosemide 40 Mg Tablet 40 Mg PO DAILY Atorvastatin Calcium 20 Mg Tablet 20 Mg PO DAILY Assessment/Pt Instructions PCP 1 week Discharge Planning: <30 minutes discharge planning Discharge Instructions Discharge Diet: No Restrictions Discharge Physical Examination Vital Signs Vital Signs Date Time Temp Pulse Resp B/P (MAP) Pulse Ox O2 Delivery O2 Flow Rate FiO2 06/08/22 08:00 36.4 81 12 118/61 (80) 95 Nasal Cannula 4.00 General Appearance: No Apparent Distress, WD/WN, Anxious, Chronically ill Respiratory: No Accessory Muscle Use, No Respiratory Distress, Decreased Breath Sounds Cardiovascular: Regular Rate, Rhythm Neurologic/Psychiatric: Alert, Oriented x3, No Motor/Sensory Deficits, Normal Mood/Affect Allergies: Coded Allergies: No Known Drug Allergies (Unverified , 11/26/21) Discharge Summary Date of Admission Jun 07, 2022 at 10:27 Date of Discharge Discharge Date: Jun 08, 2022 Discharge Diagnosis (1) Non-ST elevation myocardial infarction (NSTEMI), initial care episode Assessment & Plan: He had moderate to severe disease of the third obtuse marginal branch noted on his cardiac catheterization from 06/07. There was no evidence of any thrombotic occlusions of any coronary vessel. I suspect he had a type II non-ST elevation myocardial infarction due to supply/demand mismatch from is acute on chronic respiratory failure with hypoxia. He is not on beta- jelena due to his severe underlying chronic obstructive pulmonary disease. He was supposed to be taking aspirin at home although this did not profile to his medication list. I will also add clopidogrel. He is on diltiazem for his history of atrial fibrillation which does have some antianginal properties. He should continue on statin medication. From a cardiac standpoint, he can be discharged home today. He should already have a follow-up appointment scheduled with me in the office that should have been made before he was discharged earlier this week. (2) Paroxysmal atrial fibrillation Status: Chronic Assessment & Plan: He had atrial fibrillation during a previous hospitalization but has remained in sinus rhythm on amiodarone which I plan to taper as an outpatient. I do not have him on oral anticoagulation because the previous atrial fibrillation was short-lived and most likely provoked by an acute pulmonary infection when it initially occurred earlier this year. (3) Ventricular tachycardia Status: Acute Assessment & Plan: He also had ventricular tachycardia during a previous hospitalization. He should continue on diltiazem. As above, he does not have any coronary artery disease that requires revascularization. (4) Acute on chronic heart failure with preserved ejection fraction (HFpEF) Status: Acute Assessment & Plan: Although his pulmonary status had improved prior to discharge on 06/06, he still does have some peripheral edema and this may be related to ongoing heart failure that was present at the time of this admission. He should continue on oral furosemide at home. (5) Primary hypertension Status: Chronic Assessment & Plan: Continue diltiazem. (6) Mixed hyperlipidemia Status: Chronic Assessment & Plan: I will increase his dose of atorvastatin in light of the probable type II non-ST elevation myocardial infarction and now diagnosed with coronary artery disease during this hospitalization. (7) Coronary artery disease with unstable angina pectoris Assessment & Plan: As above. He did have an echocardiogram earlier in the year that showed a normal ejection fraction. (8) Pulmonary hypertension Status: Chronic Assessment & Plan: Most likely related to his underlying pulmonary disease and superimposed heart failure. This will be followed longitudinally. (9) Peripheral arterial disease Assessment & Plan: From his description he had a previous femorofemoral bypass and possibly a stent in one of his legs. He is asymptomatic at this point in regards to the peripheral vascular disease. Recommend he continue on aspirin and statin medication. CURTIS MOSLEY DO Jun 08, 2022 09:50
[2022-06-08 10:36] LABS: BASOPHILS % (AUTO) 0 % (0-10); EOSINOPHILS % (AUTO) 0 % (0-10); HEMATOCRIT 36 % (40-54); HEMOGLOBIN 11.6 g/dL (13.3-17.7); LYMPHOCYTES # (AUTO) 0.3 10^3/uL (1.0-4.0); LYMPHOCYTES % (AUTO) 4 % (12-44); MEAN CORPUSCULAR HEMOGLOBIN 28 pg (25-34); MEAN CORPUSCULAR HGB CONC 32 g/dL (32-36); MEAN CORPUSCULAR VOLUME 88 fL (80-99); MEAN PLATELET VOLUME 10.6 fL (9.0-12.2); MONOCYTES # (AUTO) 0.6 10^3/uL (0.0-1.0); MONOCYTES % (AUTO) 7 % (0-12); NEUTROPHILS # (AUTO) 7.6 10^3/uL (1.8-7.8); NEUTROPHILS % (AUTO) 85 % (42-75); PLATELET COUNT 183 10^3/uL (130-400); WHITE BLOOD COUNT 8.9 10^3/uL (4.3-11.0)
[2022-06-08] MEDS ORDERED: CLOP75TA28 PO (11:14)
[2022-06-08 12:00] VITALS: BP 140/69
[2022-06-08 12:15] VITALS: BP 140/69
[2022-06-09] MEDS ORDERED: CLOPIDOGREL 75 MG (PLAVIX) TABLET PO SCH (09:00)
== END 2022-06-08 09:48 | disposition home or self-care (01) ==
LOC: CSD 10:27 → UNDOADMOB 10:27 → CSD 11:06 → UNDODISOB 06-08 09:48
PROVIDERS: ADMIT Family Medicine; ATTEND Internal Medicine
DX: I25.110 Atherosclerotic heart disease of native coronary artery with unstable angina pectoris (principal); I21.4 Non-ST elevation (NSTEMI) myocardial infarction; I48.0 Paroxysmal atrial fibrillation; I47.2 Ventricular tachycardia; I11.0 Hypertensive heart disease with heart failure; I50.33 Acute on chronic diastolic (congestive) heart failure; E78.2 Mixed hyperlipidemia; I27.20 Pulmonary hypertension, unspecified; I73.9 Peripheral vascular disease, unspecified; Z87.891 Personal history of nicotine dependence
CPT/HCPCS: 36415; 71275; 80053; 84484; 85025; 85379; 93005; 93454; 93970; 94640; 96372; 96374; 96375; 96376

== ENCOUNTER 2022-06-08 23:16 | Inpatient (IN) | payer MEDICARE, MEDICAID ==
[~2022-06-08] VITALS: Ht 162.1 cm; Wt 89.4 kg
[~2022-06-08 23:16] MED LIST changes: +ASPI-1238 PO; +CLOP75TA28 PO; +NITR0.4T42 SL
[2022-06-08] MEDS ORDERED: methylPREDNISolone 125 MG (Solu-MEDROL) VIAL IV STA (23:28)
[2022-06-08] MEDS ORDERED: RT-ALBUTEROL/IPRATROPIUM 3 ML (DUONEB) VIAL INH ONE (23:30)
[2022-06-08 23:38] LABS: BILIRUBIN,URINE NEGATIVE (NEGATIVE); CLARITY,URINE CLEAR; COLOR,URINE YELLOW; GLUCOSE, URINE (UA) NEGATIVE (NEGATIVE); KETONES,URINE NEGATIVE (NEGATIVE); LEUKOCYTE ESTERASE ,URINE NEGATIVE (NEGATIVE); NITRITE,URINE NEGATIVE (NEGATIVE); PROTEIN,URINE 2+ (NEGATIVE)
[2022-06-08 23:57] LABS: BASOPHILS % (AUTO) 0 % (0-10); EOSINOPHILS % (AUTO) 0 % (0-10); HEMATOCRIT 39 % (40-54); HEMOGLOBIN 12.4 g/dL (13.3-17.7); LYMPHOCYTES # (AUTO) 0.8 10^3/uL (1.0-4.0); LYMPHOCYTES % (AUTO) 7 % (12-44); MEAN CORPUSCULAR HEMOGLOBIN 28 pg (25-34); MEAN CORPUSCULAR HGB CONC 32 g/dL (32-36); MEAN CORPUSCULAR VOLUME 88 fL (80-99); MEAN PLATELET VOLUME 10.5 fL (9.0-12.2); MONOCYTES # (AUTO) 0.9 10^3/uL (0.0-1.0); MONOCYTES % (AUTO) 7 % (0-12); NEUTROPHILS # (AUTO) 10.3 10^3/uL (1.8-7.8); NEUTROPHILS % (AUTO) 81 % (42-75); PLATELET COUNT 214 10^3/uL (130-400); WHITE BLOOD COUNT 12.7 10^3/uL (4.3-11.0)
[2022-06-09 00:08] LABS: BILIRUBIN,TOTAL 0.7 MG/DL (0.1-1.0); CALCIUM 8.9 MG/DL (8.5-10.1); CREATININE SERUM 0.96 MG/DL (0.60-1.30); MAGNESIUM 2.2 MG/DL (1.6-2.4); POTASSIUM 3.7 MMOL/L (3.6-5.0); TOTAL PROTEIN 6.6 GM/DL (6.4-8.2)
[2022-06-09 00:16] LABS: ERYTHROCYTE SEDIMENTATION RATE 5 MM/HR (0-30)
[2022-06-09 00:20] LABS: BACTERIA,URINE TRACE /HPF
[2022-06-09] MEDS ORDERED: MEROPENEM 1,000 MG in NS (IVPB) 100 ML IV ONE (00:30)
[2022-06-09 00:31] LABS: FIBRIN DEGRADATION PRODUCTS 0.93 UG/ML (0.00-0.49); INR 0.9 (0.8-1.4); PROTHROMBIN TIME PATIENT 12.5 SEC (12.2-14.7)
[2022-06-09] MEDS ORDERED: FUROSEMIDE 40 MG/4 ML INJ (LASIX) IVP ONE (00:45)
--- NOTE | 2022-06-09 00:58 | ED Respiratory ---
General Chief Complaint: Respiratory Problems Stated Complaint: SOA Nursing Triage Note: patient arrived via ems with shortness of breath at rest. patient retracting, labored. patient on 5L NC. patient states he was released from the hospital this morning. Source: patient (PT IS A VERY LIMITED HISTORIAN ABOUT PMH), old records History of Present Illness Date Seen by Provider: Jun 08, 2022 Time Seen by Provider: 23:25 Initial Comments PT ARRIVES VIA [facility] FROM HOME C/O SHORTNESS OF BREATH PT HAS BEEN HOSPITALIZED SINCE 05/26/22 FOR COPD EXACERBATION, AND WAS RELEASED THIS MORNING--SEE OLD CHARTS FOR DETAILS STATES HE STARTED GETTING SHORT OF BREATH AGAIN THIS EVENING AND CALLED EMS O2 SATS IN THE MID 80'S ON 5L/NC BY EMS--PT NORMALLY WEARS O2 AT 3L/NC NO CHEST PAIN NO FEVER/SWEATS/CHILLS C/O CHRONIC BILATERAL LEG PAIN AND SWELLING AND ABDOMINAL SWELLING ALSO C/O CHRONIC BACK PAIN PT IS FIXATED ON ALL HIS CHRONIC PAIN COMPLAINTS FROM THE TIME OF ARRIVAL, AND WANTING PAIN MEDICATION LITERALLY SOON HE ARRIVES. PT HAS NOT TAKEN ANYTHING FOR PAIN PT IS NOT COVID VACCINATED MUCH LATER, PT STATES HE HAD COVID "3 WEEKS AGO". PT HAS HAD MULTIPLE INTUBATIONS IN THE PAST FOR RESPIRATORY FAILURE PT CONTINUES TO SMOKE AT LEAST 1 PPD, INCLUDING JUST PRIOR TO ARRIVAL PCP: JUAN CARLOS PT MOVED HERE FROM [place] IN THE LAST YEAR. Allergies and Home Medications Allergies Coded Allergies: No Known Drug Allergies (Unverified , 11/26/21) Patient Home Medication List Home Medication List Reviewed: Yes Albuterol Sulfate (Albuterol Sulfate) 2.5 Mg/3 Ml (0.083 %) Vial.neb, 2.5 MG NEB Q6H PRN for SHORTNESS OF BREATH, (Reported) Entered as Reported by: ADDIS ZAPATA on 05/27/22 1455 Last Action: Reviewed Amiodarone HCl (Amiodarone HCl) 200 Mg Tablet, 200 MG PO DAILY Prescribed by: LINDA THOMPSON on 06/06/22 1238 Last Action: Reviewed Aspirin (Aspirin EC) 81 Mg Tablet.dr, 81 MG PO DAILY Prescribed by: CAROL LEWIS JR, MD on 06/08/22 0903 Last Action: Reviewed Atorvastatin Calcium (Atorvastatin Calcium) 20 Mg Tablet, 20 MG PO DAILY, (Reported) Entered as Reported by: GENIA CODY on 11/26/211306 Last Action: Reviewed Clopidogrel Bisulfate (Clopidogrel) 75 Mg Tablet, 75 MG PO DAILY Prescribed by: CAROL LEWIS JR, MD on 06/08/22 1114 Last Action: Reviewed Diltiazem HCl (Diltiazem 24Hr ER) 120 Mg Cap.er.24h, 240 MG PO DAILY Prescribed by: LINDA THOMPSON on 06/06/22 1238 Last Action: Reviewed Ferrous Sulfate (Ferrous Sulfate) 325 Mg (65 Mg Iron) Tablet, 325 MG PO Q48H, (Reported) Entered as Reported by: ADDIS ZAPATA on 02/13/221506 Last Action: Reviewed Furosemide (Furosemide) 40 Mg Tablet, 40 MG PO DAILY, (Reported) Entered as Reported by: GENIA CODY on 11/26/211306 Last Action: Reviewed Guaifenesin (Mucinex) 1,200 Mg Tab.er.12h, 1,200 MG PO BID, (Reported) Entered as Reported by: GENIA CODY on 11/26/211306 Last Action: Reviewed Hydrocodone/Acetaminophen (Hydrocodone-Acetamin 10-325 mg) 10 Mg-325 Mg Tablet, 1 EACH PO TID PRN for PAIN-MODERATE (5-7), (Reported) Entered as Reported by: ROXANA WALLIS on 05/26/22 130 Last Action: Reviewed Magnesium Oxide (Magnesium Oxide) 400 Mg Tablet, 400 MG PO HS, (Reported) Entered as Reported by: ADDIS ZAPATA on 02/13/221506 Last Action: Reviewed Multivitamin (Multivitamin) 1 Each Tablet, 1 EACH PO DAILY, (Reported) Entered as Reported by: ADDIS ZAPATA on 02/13/221506 Last Action: Reviewed Nitroglycerin (Nitroglycerin) 0.4 Mg Tab.subl, 0.4 MG SL UD PRN for CHEST PAIN (ANGINA) Prescribed by: CAROL LEWIS JR, MD on 06/08/22 0903 Last Action: Reviewed Pantoprazole Sodium (Pantoprazole Sodium) 40 Mg Tablet.dr, 40 MG PO HS, (Reported) Entered as Reported by: GENIA CODY on 11/26/211306 Last Action: Reviewed Potassium Chloride (Potassium Chloride) 20 Meq Tab.er.prt, 20 MEQ PO DAILY, (Reported) Entered as Reported by: ADDIS ZAPATA on 02/13/221506 Last Action: Reviewed Prednisone (Prednisone) 10 Mg Tab, 0 PO UD Prescribed by: CURTIS MOSLEY on 06/08/22 0923 Last Action: Reviewed Tiotropium Br/Olodaterol HCl (Stiolto Respimat Inhal [place]) 2.5 Mcg-2.5 Mcg/Actuation Mist.inhal, 2 PUFF INH DAILY, (Reported) Entered as Reported by: ADDIS ZAPATA on 05/27/221454 Last Action: Reviewed Discontinued Medications Diltiazem HCl (Diltiazem ER) 120 Mg Capsule.er, 120 MG PO DAILY, (Reported) Entered as Reported by: ADDIS ZAPATA on 02/13/221506 Levofloxacin (Levofloxacin) 750 Mg Tablet, 750 MG PO DAILY, (Reported) Entered as Reported by: ADDIS ZAPATA on 05/27/221454 Prednisone (Prednisone) 20 Mg Tab, MG PO DAILY, (Reported) Entered as Reported by: ADDIS ZAPATA on 05/27/221454 Review of Systems Review of Systems Constitutional: no symptoms reported Respiratory: see HPI, cough, short of breath Cardiovascular: No chest pain; edema; No palpitations Gastrointestinal: see HPI; No diarrhea, No nausea, No vomiting Genitourinary: no symptoms reported Musculoskeletal: see HPI Skin: no symptoms reported Psychiatric/Neurological: No Symptoms Reported; Denies Headache Hematologic/Lymphatic: No Symptoms Reported Immunological/Allergic: no symptoms reported Past Utqsiop-Aoiajc-Qyylvy Hx Patient Social History Tobacco Use?: Yes Tobacco type used: Cigarettes Smoking Status: Current Everyday Smoker Alcohol Use?: Yes Alcohol type: Beer Alcohol Frequency: Daily Seasonal Allergies Seasonal Allergies: No Past Medical History Surgery/Hospitalization HX: COPD, CHF, PROSTATE CA Surgeries: Yes Respiratory: Yes (MULTIPLE INTUBATIONS FOR RESP FAILURE;PULM HTN) Pneumonia, COPD, Emphysema Currently Using CPAP: No Currently Using BIPAP: No Cardiac: Yes (CHF;PAD W/ STENTS & FEM-FEM & FEM-POP BYPASS;CAROTID ART STENT;NSTEMI) Atrial Fibrillation, Coronary Artery Disease, Heart Attack, High Cholesterol, Hypertension, Peripheral Vascular Neurological: No Genitourinary: Yes (PROSTATE CANCER) Prostate Problems Gastrointestinal: Yes (HEP C; REPORTED "PERFORATED STOMACH ULCERS"-HAD TRANSF USIONS) Gastroesophageal Reflux, Hepatitis, Ulcer Musculoskeletal: Yes (RA, PER PT) Arthritis, Rheumatoid Arthritis Endocrine: No HEENT: No Cancer: Yes Prostate Psychosocial: Yes Depression Integumentary: No Family Medical History SOCIAL HISTORY: -SMOKES 1 PPD -ETOH--DENIES USE -DRUGS--DENIES USE PAST SURGICAL HISTORY: -CARDIAC CATH 06/07/[address] LEWIS: IMPRESSION: 1. Normal central aortic pressure. 2. There was moderate to severe disease of the small third obtuse marginal branch and mild disease of the mid segment of the dominant right coronary artery but no acute thrombotic occlusion of any vessels to explain a non-ST elevation myocardial infarction. No intervention was performed. Medical therapy is recommended. 3. The patient is known to have normal left ventricular systolic function with an estimated ejection fraction of 65-70% by previous echocardiogram that was performed on 02/14/2022. 4. These findings may be consistent with a type II non-ST elevation myocardial infarction due to supply/demand mismatch from his chronic heart failure and underlying chronic pulmonary disease. -CARDIAC CATH WITH STENT -CAROTID ARTERY ANGIOPLASTY AND STENTING -FEMORAL TO FEMORAL BYPASS GRAFT 2013 -FEMORAL - POPLITEAL BYPASS GRAFT 2013 -LEFT EXTERNAL ILIAC ARTERY STENT -COLONOSCOPY 2014 -PROSTATE BIOPSY 10/25/20 -RADIATION SEED IMPLANTS PLACED IN PROSTATE 11/28/21 Physical Exam Vital Signs - First Documented 06/08/22 06/08/22 06/08/22 23:20 23:35 23:52 Temp 36.4 Pulse 120 Resp 23 B/P (MAP) 192/102 (132) Pulse Ox 98 O2 Delivery Room Air O2 Flow Rate 40.00 FiO2 40 Capillary Refill : Less Than 3 Seconds Height: '" Weight: lbs. oz. kg; 31.00 BMI Method: General Appearance: obese, other (MODERATELY DYSPNEIC, TALKS IN SHORT SENTENCES; REEKS OF CIGARETTES; UNKEMPT) Respiratory: respiratory distress, decreased breath sounds, accessory muscle use, rales, wheezing, other (DIFFUSE RALES AND WHEEZING BILATERALLY) Cardiovascular: regular rate, rhythm Gastrointestinal: soft, other (ROTUND) Extremities: no calf tenderness, normal capillary refill, pedal edema (3+ BILATERALLY) Neurologic/Psychiatric: no motor/sensory deficits, alert, normal mood/affect, oriented x 3 Skin: warm/dry Focused Exam Lactate Level 06/08/22 23:34: Lactic Acid Level 1.33 Lactic Acid Level Laboratory Tests Test 06/08/22 23:34 Lactic Acid Level 1.33 MMOL/L (0.50-2.00) Progress/Results/Core Measures Suspected Sepsis SIRS Temperature: Pulse: 100 Respiratory Rate: 30 Blood Pressure 192 /102 Mean: 132 06/08/22 23:34: Lactic Acid Level 1.33 Laboratory Tests 06/08/22 23:34: INR Comment 0.9 Results/Orders Lab Results Laboratory Tests Test 06/08/22 23:23 06/08/22 23:34 06/09/22 00:15 06/09/22 01:13 Range/Units Urine Color YELLOW Urine Clarity CLEAR Urine pH 7.0 5-9 Urine Specific [place] 1.015 L 1.016-1.022 Urine Protein 2+ H NEGATIVE Urine Glucose (UA) NEGATIVE NEGATIVE Urine Ketones NEGATIVE NEGATIVE Urine Nitrite NEGATIVE NEGATIVE Urine Bilirubin NEGATIVE NEGATIVE Urine Urobilinogen 1.0 < = 1.0 MG/DL Urine Leukocyte Esterase NEGATIVE NEGATIVE Urine RBC (Auto) TRACE-I H NEGATIVE Urine RBC NONE /HPF Urine WBC NONE /HPF Urine Squamous Epithelial Cells NONE /HPF Urine Crystals NONE /LPF Urine Bacteria TRACE /HPF Urine Casts NONE /LPF Urine Mucus NEGATIVE /LPF Urine Culture Indicated NO White Blood Count 12.7 H 4.3-11.0 10^3/uL Red Blood Count 4.40 4.30-5.52 10^6/uL Hemoglobin 12.4 L 13.3-17.7 g/dL Hematocrit 39 L 40-54 % Mean Corpuscular Volume 88 80-99 fL Mean Corpuscular Hemoglobin 28 25-34 pg Mean Corpuscular Hemoglobin Concent 32 32-36 g/dL Red Cell Distribution Width 16.7 H 10.0-14.5 % Platelet Count 214 130-400 10^3/uL Mean Platelet Volume 10.5 9.0-12.2 fL Immature Granulocyte % (Auto) 5 % Neutrophils (%) (Auto) 81 H 42-75 % Lymphocytes (%) (Auto) 7 L 12-44 % Monocytes (%) (Auto) 7 0-12 % Eosinophils (%) (Auto) 0 0-10 % Basophils (%) (Auto) 0 0-10 % Neutrophils # (Auto) 10.3 H 1.8-7.8 10^3/uL Lymphocytes # (Auto) 0.8 L 1.0-4.0 10^3/uL Monocytes # (Auto) 0.9 0.0-1.0 10^3/uL Eosinophils # (Auto) 0.0 0.0-0.3 10^3/uL Basophils # (Auto) 0.0 0.0-0.1 10^3/uL Immature Granulocyte # (Auto) 0.6 H 0.0-0.1 10^3/uL Erythrocyte Sedimentation Rate 5 0-30 MM/HR Prothrombin Time 12.5 12.2-14.7 SEC INR Comment 0.9 0.8-1.4 Activated Partial Thromboplast Time 24 24-35 SEC D-Dimer 0.93 H 0.00-0.49 UG/ML Sodium Level 142 135-145 MMOL/L Potassium Level 3.7 3.6-5.0 MMOL/L Chloride Level 103 98-107 MMOL/L Carbon Dioxide Level 26 21-32 MMOL/L Anion Gap 13 5-14 MMOL/L Blood Urea Nitrogen 29 H 7-18 MG/DL Creatinine 0.96 0.60-1.30 MG/DL Estimat Glomerular Filtration Rate 87 BUN/Creatinine Ratio 30 Glucose Level 152 H 70-105 MG/DL Lactic Acid Level 1.33 0.50-2.00 MMOL/L Calcium Level 8.9 8.5-10.1 MG/DL Corrected Calcium 8.9 8.5-10.1 MG/DL Magnesium Level 2.2 1.6-2.4 MG/DL Total Bilirubin 0.7 0.1-1.0 MG/DL Aspartate Amino Transf (AST/SGOT) 42 H 5-34 U/L Alanine Aminotransferase (ALT/SGPT) 48 0-55 U/L Alkaline Phosphatase 64 40-136 U/L Total Creatine Kinase 110 30-200 U/L Creatine Kinase MB 4.0 <6.6 NG/ML Myoglobin 61.3 10.0-92.0 NG/ML Troponin I 0.059 H <0.028 NG/ML C-Reactive Protein High Sensitivity 0.07 0.00-0.50 MG/DL B-Type Natriuretic Peptide 300.5 H <100.0 PG/ML Total Protein 6.6 6.4-8.2 GM/DL Albumin 4.0 3.2-4.5 GM/DL Procalcitonin 0.03 <0.10 NG/ML Influenza Type A (RT-PCR) Not Detected Not Detecte Influenza Type B (RT-PCR) Not Detected Not Detecte SARS-CoV-2 RNA (RT-PCR) Not Detected Not Detecte Bedside Blood Gas pH (LAB) 7.418 H 7.310-7.410 Bedside Blood Gas pCO2 (LAB) 46.2 41.0-51.0 mmHg Bedside Blood Gas pO2 (LAB) 53 L 80-105 mmHg Bedside Blood Gas HCO3 (LAB) 29.8 H 23.0-28.0 mmol/L POC Blood Gas Total CO2 Calc 31 H 24-29 mmol/L Bedside Bl Gas O2 Saturation (Calc) 87 L 95-98 % Bedside Arterial Blood Base Excess 5 H -2-3 mmol/L Urine Opiates Screen POSITIVE H NEGATIVE Urine Oxycodone Screen POSITIVE H NEGATIVE Urine Methadone Screen NEGATIVE NEGATIVE Urine Propoxyphene Screen NEGATIVE NEGATIVE Urine Barbiturates Screen NEGATIVE NEGATIVE Ur Tricyclic Antidepressants Screen NEGATIVE NEGATIVE Urine Phencyclidine Screen NEGATIVE NEGATIVE Urine Amphetamines Screen NEGATIVE NEGATIVE Urine Methamphetamines Screen NEGATIVE NEGATIVE Urine Benzodiazepines Screen POSITIVE H NEGATIVE Urine Cocaine Screen NEGATIVE NEGATIVE Urine Cannabinoids Screen NEGATIVE NEGATIVE Serum Alcohol < 10 <10 MG/DL Micro Results Microbiology 06/09/22 Blood Culture - Preliminary, Resulted No growth 06/08/22 Blood Culture - Preliminary, Resulted No growth My Orders Orders - ESTEPHANIA HINOJOSA DO Ed Iv/Invasive Line Start (06/08/22 23:28) O2 (06/08/22 23:28) Monitor-Rhythm Ecg Trace Only (06/08/22:28) Chest 1 View, Ap/Pa Only (06/08/22:28) Bnp Abdiel (06/08/22 23:28) Cbc With Automated Diff (06/08/22:28) Comprehensive Metabolic Panel (06/08/22 23:) Creatine Kinase (06/08/22 23:28) Creatine Kinase Mb (06/08/22:28) Hs C Reactive Protein (06/08/22:28) Fibrin Degradation Products (06/08/22:28) Lactic Acid Analyzer (06/08/22 23:28) Magnesium (06/08/22 23:28) Procalcitonin (Pct) (06/08/22:) Protime With Inr (06/08/22 23:) Partial Thromboplastin Time (06/08/22 23:28) Ua Culture If Indicated (06/08/22:) Blood Culture (06/08/22:) Erythrocyte Sedimentation Rate (06/08/22 23:28) Myoglobin Serum (06/08/22:28) Troponin I Abdiel (06/08/22 23:28) Albuterol/Ipra Inhalation Soln (Duoneb I (06/08/22 23:30) Dexamethasone Injection (Decadron Injec (06/08/22 23:30) Methylprednisolone Sod Succ (Solu-Medrol (06/08/22:) Svn Small Volume Nebulizer (06/08/22:) Covid 19 Inhouse Test (06/08/22 23:32) Influenza A And B By Pcr (06/08/22 23:32) Isolation Central Supply Req (06/08/22 23:32) Arterial Blood Draw - Obtain (06/09/22 ) Meropenem (Merrem 1000 Mg) (06/09/22 00:30) Ct Angio Chest W (06/09/22 00:41) Furosemide Injection (Lasix Injection) (06/09/22 00:45) Fentanyl Inj (Sublimaze Injection) (06/09/22 01:00) Alcohol (06/09/22 00:58) Drug Screen Stat (Urine) (06/09/22 00:58) Iohexol Injection (Omnipaque 350 Mg/Ml 1 (06/09/22 01:45) Received Contrast (Hold Metformin- Contr (06/09/22 01:45) Ns (Ivpb) (Sodium Chloride 0.9% Ivpb Bag (06/09/22 01:45) Medications Given in ED Vital Signs/I&O 06/08/22 06/08/22 06/08/22 06/08/22 23:20 23:35 23:35 23:52 Temp 36.4 Pulse 120 100 Resp 23 30 B/P (MAP) 192/102 (132) Pulse Ox 98 87 98 O2 Delivery Room Air Nasal Cannula NIV Bilevel O2 Flow Rate 40.00 5.00 5.00 FiO2 40 06/09/22 02:30 O2 Delivery NIV Bilevel Capillary Refill : Less Than 3 Seconds Blood Pressure Mean: 132 Progress Note : Progress Note PLACED ON BIPAP ON ARRIVAL, WITH IMPROVEMENT IN BREATHING PT CONTINUES TO WANT PAIN MEDICATION FOR HIS CHRONIC BACK AND LEG PAIN THROUGHOUT HIS ENTIRE ER STAY PT HAS NOT COMPLAINED ONCE ABOUT HIS BREATHING AT ANY TIME DURING ER STAY MARKED DELAY IN OBTAINING CT REPORT--EVENTUALLY READ BY ANNA RADIOLOGIST ECG Initial ECG Impression Date: Jun 08, 2022 Initial ECG Impression Time: 23:37 Initial ECG Rate: 103 Initial ECG Rhythm: S.Tach Initial ECG Impression: Nonspecific Changes Diagnostic Imaging Comments CT CHEST ANGIOGRAM--PER RADIOLOGIST REPORT AT 0242 FINDINGS: Heart size and changed. Small anterior pericardial effusion. No disproportionate right heart strain. Dense calcification aortic and mitral valve. Mild coronary artery calcification. No pathologic enlarged mediastinal lymph nodes. Mild calcification [place] aorta without evidence for aneurysm. No central pulmonary embolism. Smaller peripheral emboli would easily go undetected owing to motion artifact. Groundglass opacities both lung lozada. No consolidating infiltrate. Trace pleural effusions dependently. The visualized portions of the upper abdomen are unremarkable. Gynecomastia present. The visualized osseous structures demonstrate no acute findings. IMPRESSION: 1. No CTA evidence for pulmonary embolism or acute aortic syndrome. 2. Trace pleural effusions. 3. No significant interval change from study of 2 days ago. Reviewed: Reviewed by Me Departure Communication (Admissions) 024--SPOKE WITH DR. MOSLEY, HOSPITALIST, ACCEPTS PT FOR ADMIT 024--REPORT TO E-ICU PHYSICIAN Impression Primary Impression: Acute on chronic respiratory failure with hypoxemia Additional Impression: ACTIVE SMOKER Disposition: ADMITTED INPATIENT Condition: Stable Admissions Decision to Admit Reason: Admit from ER (General) Decision to Admit/Date: Jun 09, 2022 Time/Decision to Admit Time: 02:45 Departure-Patient Inst. [facility] Primary Care Physician ESTEPHANIA HINOJOSA DO Jun 09, 2022 00:58
[2022-06-09] MEDS ORDERED: fentaNYL INJ 100 MCG/2 ML AMP IVP ONE (01:00)
[2022-06-09 01:33] LABS: AMPHETAMINE SCREEN, URINE NEGATIVE (NEGATIVE); BARBITURATE SCREEN URINE NEGATIVE (NEGATIVE); BENZODIAZEPINES SCREEN URINE POSITIVE (NEGATIVE); CANNABINOID SCREEN, URINE NEGATIVE (NEGATIVE); COCAINE SCREEN URINE NEGATIVE (NEGATIVE); METHADONE STAT NEGATIVE (NEGATIVE); OPIATE SCREEN URINE POSITIVE (NEGATIVE); OXYCODONE STAT POSITIVE (NEGATIVE); PROPOXYPHENE STAT NEGATIVE (NEGATIVE); TRICYCLIC ANTIDEPRESSANTS SCRE NEGATIVE (NEGATIVE)
[2022-06-09] MEDS ORDERED: IOHEXOL 350 MG/ML 100 ML (OMNIPAQUE 350) VIAL IV ONE (01:45)
[2022-06-09] MEDS ORDERED: HOLD METFORMIN - RECEIVED CONTRAST 20 ML VIAL IV SCH (01:45)
[2022-06-09] MEDS ORDERED: NS 100 ML (IVPB) BAG IV ONE (01:45)
--- NOTE | 2022-06-09 02:39 | Diagnostic Imaging Report ---
PROCEDURE: CT angiography of the chest with contrast. TECHNIQUE: Multiple contiguous axial images were obtained through the chest after uneventful bolus administration of intravenous contrast. 3D reconstructed CTA MIP acquisitions were also performed. Auto Exposure Controls were utilized during the CT exam to meet ALARA standards for radiation dose reduction. INDICATION: Shortness of air CORRELATION: CTA chest 06/07/2022 FINDINGS: Heart size and changed. Small anterior pericardial effusion. No disproportionate right heart strain. Dense calcification aortic and mitral valve. Mild coronary artery calcification. No pathologic enlarged mediastinal lymph nodes. Mild calcification Rasky aorta without evidence for aneurysm. No central pulmonary embolism. Smaller peripheral emboli would easily go undetected owing to motion artifact. Groundglass opacities both lung lozada. No consolidating infiltrate. Irregular reticular interstitial prominence. Unchanged left apical scarring. Trace pleural effusions dependently. The visualized portions of the upper abdomen are unremarkable. Gynecomastia present. The visualized osseous structures demonstrate no acute findings. IMPRESSION: 1. No CTA evidence for pulmonary embolism or acute aortic syndrome. 2. Trace pleural effusions. 3. No significant interval change from study of 2 days ago. Dictated by: Dictated on workstation # [id number]
[2022-06-09 02:50] VITALS: BP 135/85
[2022-06-09] MEDS ORDERED: D5 1/2 NS W/KCL 20 MEQ/L 1,000 ML IV SCH (03:30)
[2022-06-09] MEDS ORDERED: EPINEPHrine 1 MG INJECTION 4 MG in NS (IVPB) 248 ML IV SCH (03:30)
[2022-06-09] MEDS: VASOPRESSIN INJECTION 20 UNIT in NS (IVPB) 100 ML IV SCH ×2 (03:41→15:06)
[2022-06-09] MEDS: NOREPINEPHRINE 8 MG/250 ML 250 ML IV SCH ×2 (03:41→17:56)
[2022-06-09] MEDS: fentaNYL INJ 100 MCG/2 ML AMP IV PRN ×2 (03:42→08:28)
[2022-06-09] MEDS ORDERED: ACETAMINOPHEN 500 MG TAB (TYLENOL) PO PRN (04:30)
[2022-06-09] MEDS ORDERED: RT-ALBUTEROL/IPRATROPIUM 3 ML (DUONEB) VIAL INH PRN (04:30)
[2022-06-09] MEDS ORDERED: NS IV 500 ML 500 ML IV PRN (05:30)
[2022-06-09] MEDS ORDERED: methylPREDNISolone 125 MG (Solu-MEDROL) VIAL IV ONE (06:00)
[2022-06-09] MEDS ORDERED: FUROSEMIDE 40 MG/4 ML INJ (LASIX) IV ONE (06:00)
--- NOTE | 2022-06-09 06:52 | Diagnostic Imaging Report ---
INDICATION: Dyspnea. Time of Exam: 12:01 AM Correlation is made with prior chest of 06/01/2022. Heart size is stable. There is some questionable infiltrate in the left base. Right lung is clear. There is no effusion or pneumothorax. IMPRESSION: Mild left-sided infiltrate in the mid and lower lung field. Dictated by: Dictated on workstation # [id number]
[2022-06-09] MEDS: RT-ALBUTEROL/IPRATROPIUM 3 ML (DUONEB) VIAL INH SCH ×5 (07:00→22:02)
[2022-06-09 07:43] LABS: BASOPHILS % (AUTO) 0 % (0-10); EOSINOPHILS % (AUTO) 0 % (0-10); HEMATOCRIT 38 % (40-54); HEMOGLOBIN 12.3 g/dL (13.3-17.7); LYMPHOCYTES # (AUTO) 0.2 10^3/uL (1.0-4.0); LYMPHOCYTES % (AUTO) 2 % (12-44); MEAN CORPUSCULAR HEMOGLOBIN 29 pg (25-34); MEAN CORPUSCULAR HGB CONC 33 g/dL (32-36); MEAN CORPUSCULAR VOLUME 87 fL (80-99); MEAN PLATELET VOLUME 10.5 fL (9.0-12.2); MONOCYTES # (AUTO) 0.2 10^3/uL (0.0-1.0); MONOCYTES % (AUTO) 2 % (0-12); NEUTROPHILS # (AUTO) 10.2 10^3/uL (1.8-7.8); NEUTROPHILS % (AUTO) 94 % (42-75); PLATELET COUNT 177 10^3/uL (130-400); WHITE BLOOD COUNT 10.9 10^3/uL (4.3-11.0)
[2022-06-09 07:54] LABS: POTASSIUM 3.2 MMOL/L (3.6-5.0)
[2022-06-09 07:55] LABS: CALCIUM 8.7 MG/DL (8.5-10.1)
[2022-06-09 07:57] LABS: TOTAL PROTEIN 6.7 GM/DL (6.4-8.2)
[2022-06-09 07:58] LABS: BILIRUBIN,TOTAL 0.7 MG/DL (0.1-1.0)
[2022-06-09 08:00] LABS: CREATININE SERUM 0.93 MG/DL (0.60-1.30); PHOSPHORUS 3.9 MG/DL (2.3-4.7)
--- NOTE | 2022-06-09 08:02 | History & Physical-Hospitalist ---
History of Present Illness HPI/Chief Complaint CC: Respiratory failure with volume overload HPI: This is a 66yoWM well known to me from multiple hospital stays for the same issue due to severe COPD and continued smoking until 4 weeks prior to last admit who presented to the ER with dyspnea after he was just DC after cardiac cath revealing mild CAD by Dr Pugh. Patient was given IV Lasix. O2 is at 5L/min. Patient did use biPAP last night and is now doing better and has received IV Lasix with good results. Source: patient Exam Limitations: no limitations Date Seen 06/09/22 Time Seen by a Provider: 11:30 [facility] Admitting Physician: Sherri Arnold DO Attending Physician: Sherri Arnold DO Referring Physician Date of Admission Jun 09, 2022 at 02:45 Home Medications & Allergies Home Medications Reviewed patient Home Medication Reconciliation performed by pharmacy medication reconciliations claims technician and/or nursing. Patients Allergies have been reviewed. Allergies Allergies Coded Allergies No Known Drug Allergies (Unverified11/26/21) Past Ykiykip-[id number]-[id number] Hx Patient Social History Marrital Status: Employed/Student: retired Tobacco Use?: No Tobacco type used: Cigarettes Smoking Status: Former Smoker Use of E-Cig and/or Vaping dev: No Substance use?: No Alcohol Use?: No Alcohol type: Beer Alcohol Frequency: Daily Pt feels they are or have been: No Immunizations Up To Date Date of Influenza Vaccine: Jul 26, 2021 First/Initial COVID19 Vaccinat: APRIL 2021 Second COVID19 Vaccination [place]: MAY 2021 Tetanus Booster (TDap): Unknown Hepatitis A: No Hepatitis B: No Seasonal Allergies Seasonal Allergies: No Current Status Advance Directives: No Communicates: Verbally Primary Language: Australian Preferred Spoken Language: Australian Is interpretation needed?: No Implanted or Applied Medical D: None Past Medical History COPD, Emphysema Currently Using CPAP: No Currently Using BIPAP: No Coronary Artery Disease, Heart Attack, High Cholesterol, Hypertension, Peripheral Vascular Prostate Problems Gastroesophageal Reflux Arthritis, Rheumatoid Arthritis Prostate Depression PMHx: COPD with baseline oxygen need 4L HTN HLD Iron Def anemia CHF Review of Systems Constitutional: see HPI, malaise, weakness EENTM: no symptoms reported Respiratory: dyspnea on exertion, short of breath, wheezing Cardiovascular: edema Gastrointestinal: no symptoms reported Genitourinary: no symptoms reported Musculoskeletal: back pain, joint pain Skin: no symptoms reported Psychiatric/Neurological: No Symptoms Reported All Other Systems Reviewed Negative Unless Noted: Yes Physical Exam Physical Exam Vital Signs Vital Signs - First Documented 06/08/22 06/08/22 06/08/22 23:20 23:35 23:52 Temp 36.4 Pulse 120 Resp 23 B/P (MAP) 192/102 (132) Pulse Ox 98 O2 Delivery Room Air O2 Flow Rate 40.00 FiO2 40 Capillary Refill : Less Than 3 Seconds Height, Weight, BMI Height: '" Weight: lbs. oz. kg; 33.64 BMI Method: General Appearance: Anxious, Chronically ill, Moderate Distress, Obese Eyes: Right Eye Normal Inspection, Right Eye PERRL HEENT: PERRL/EOMI, Normal ENT Inspection, Pharynx Normal, Moist Mucous Membranes Neck: Full Range of Motion, Normal Inspection, Non Tender Respiratory: Chest Non Tender, No Respiratory Distress, Accessory Muscle Use, Decreased Breath Sounds, Wheezing Cardiovascular: Regular Rate, Rhythm, No Gallop, No JVD, No Murmur, Normal Peripheral Pulses Gastrointestinal: Normal Bowel Sounds, No Organomegaly, No Pulsatile Mass, Non Tender, Soft Back: Normal Inspection, No CVA Tenderness, No Vertebral Tenderness Extremity: Normal Capillary Refill, Normal Inspection, Normal Range of Motion, Non Tender, No Calf Tenderness, No Pedal Edema Neurologic/Psychiatric: Alert, Oriented x3, No Motor/Sensory Deficits, Normal Mood/Affect Skin: Normal Color, Warm/Dry Lymphatic: No Adenopathy Results Results/Procedures Labs Laboratory Tests 06/08/22 23:34 06/09/22 07:34 Patient resulted labs reviewed. Assessment/Plan Admission Diagnosis Assessment: Acute on chronic respiratory failure BiPAP dependent Severe COPD/Emphysema PAF CAD mild disease in recent cath on Friday Dr Pugh Recent smoking cessation 4 weeks ago Previous respiratory failure with long ventilator course Anxiety RA Polyarthrlagia Plan: O2 BiPAP Monitor closely ICU IV steroids IV Lasix Cardiology consult EICU consult Admission Status: Inpatient Order (span 2 midnights) Reason for Inpatient Admission: resp failure SHERRI ARNOLD DO Jun 09, 2022 08:02
[2022-06-09] MEDS: MAGNESIUM 1 GM/100 ML IVPB 100 ML IV SCH (08:09)
[2022-06-09] MEDS: POTASSIUM CL 10MEQ/50ML IVPB 50 ML IV SCH (08:09)
[2022-06-09] MEDS: KCL 20 MEQ TAB (K-DUR) PO SCH (08:21)
[2022-06-09] MEDS: MEROPENEM 500 MG/NS 100 ML IVPB IV SCH ×6 (08:27→20:49)
[2022-06-09] MEDS ORDERED: KCL 20 MEQ TAB (K-DUR) PO ONE ×2 (08:30→10:30)
--- NOTE | 2022-06-09 10:04 | Tele-ICU Consult ---
History of Present Illness History of Present Illness Date Seen by Provider: Jun 09, 2022 Time Seen by Provider: 10:04 Date of Admission (Tele-ICU Physician , consultation) Available chart/ vitals / labs / Images reviewed H&P is from ER notes Patient's information available about PMH, Shx, Fhx allergy reviewed inEMR. ROS as per chart and RN report Now in ICU, hemodynamically stable Video assessment done using teleICU camera, rest of exam as per RN Discussed with RN. Hospital course: RECENT Admission 05/26-06/06 for CHF exacerbation, COPD exacerbation. Returned for eval 06/07 after rolling off the couch and injuring ribs, but found to have troponin elevation. Cath done 06/07 with insignificant disease. Thought to be type II [place] secondary to severe lung disease. Discharged earlier today 06/09- 66M with COPD requiring multiple prior intubations (most recent 01/2022), Stage 3 diastolic dysfunction with preserved EF, afib, VT, ongoing 1 ppd smoker, admitted with COPD exacerbation. A/P Acute resp failure ( on chronic ) - CTA 06/09 - NO PE - BIPAP used in ER - off now , ABG with mild chronic CO2 retention - doing well on 6 l o2 now - moniror AECOPD -given solumedrol x1 - to cont steroids ? CAN PATCHER po dose ? nebs. Merrem restarted in ER (had been on last admit) ? Recent nonSTEMI type II - sypply/demad - cath - no occlusions - afib: currently NSR -as per cards - no AC Lines : , (Central Line Necessity Reviewed) Vanessa: OG: Nutrition: Analgesia: Anxiety/ delirium VTE Prophylaxis: promise 40 Stress Ulcer Prophylaxis: na Plans in collaboration with bedside consultants and IM MDs. Discussed with RN to reach out if any questions or concerns A total of 20 minutes of critical care time was devoted to this patient today, required to treat and/or prevent further deterioration of critical care condition ( as above ) . Allergies and Home Medications Allergies Coded Allergies: No Known Drug Allergies (Unverified , 11/26/21) Home Medications Albuterol Sulfate 2.5 Mg/3 Ml (0.083 %) Vial.neb, 2.5 MG NEB Q6H PRN for SHORTNESS OF BREATH, (Reported) Amiodarone HCl 200 Mg Tablet, 200 MG PO DAILY Prescribed by: LINDA THOMPSON on 06/06/22 1238 Aspirin 81 Mg Tablet.dr, 81 MG PO DAILY Prescribed by: CAROL LEWIS JR, MD on 06/08/22 09 Atorvastatin Calcium 20 Mg Tablet, 20 MG PO DAILY, (Reported) Clopidogrel Bisulfate 75 Mg Tablet, 75 MG PO DAILY Prescribed by: CAROL LEWIS JR, MD on 06/08/22 1114 Diltiazem HCl 120 Mg Cap.er.24h, 240 MG PO DAILY Prescribed by: LINDA THOMPSON on 06/06/22 1238 Ferrous Sulfate 325 Mg (65 Mg Iron) Tablet, 325 MG PO Q48H, (Reported) Furosemide 40 Mg Tablet, 40 MG PO DAILY, (Reported) Guaifenesin 1,200 Mg Tab.er.12h, 1,200 MG PO BID, (Reported) Hydrocodone/Acetaminophen 10 Mg-325 Mg Tablet, 1 EACH PO TID PRN for PAIN- MODERATE (5-7), (Reported) Magnesium Oxide 400 Mg Tablet, 400 MG PO HS, (Reported) Multivitamin 1 Each Tablet, 1 EACH PO DAILY, (Reported) Nitroglycerin 0.4 Mg Tab.subl, 0.4 MG SL UD PRN for CHEST PAIN (ANGINA) Prescribed by: CAROL LEWIS JR, MD on 06/08/22902 Pantoprazole Sodium 40 Mg Tablet.dr, 40 MG PO HS, (Reported) Potassium Chloride 20 Meq Tab.er.prt, 20 MEQ PO DAILY, (Reported) Prednisone 10 Mg Tab, 0 PO UD Take 5 tabs(50mg)daily, decrease by 1 tab(10mg) every other day. Prescribed by: CURTIS MOSLEY on 06/08/22 09 Tiotropium Br/Olodaterol HCl 2.5 Mcg-2.5 Mcg/Actuation Mist.inhal, 2 PUFF INH DAILY, (Reported) Past Medical/Social/Family Hx Patient Social History Tobacco Use?: No Tobacco type used: Cigarettes Smoking Status: Former Smoker Use of E-Cig and/or Vaping dev: No Substance use?: No Alcohol Use?: No Alcohol type: Beer Alcohol Frequency: Daily Pt stated abuse/neglect: No Immunizations Up To Date Influenza Vaccine Up-to-Date: Yes; Up-to-Date First/Initial COVID19 Vaccinat: APRIL 2021 Second COVID19 Vaccination [place]: MAY 2021 Tetanus Booster (TDap): Unknown Hepatitis A: No Hepatitis B: No TB Skin Test: None Current Status Advance Directives: No Communicates: Verbally Primary Language: Belgian Preferred Spoken Language: Belgian Is interpretation needed?: No Implanted or Applied Medical D: None Past Medical History PMHx: COPD with baseline oxygen need 4L HTN HLD Iron Def anemia CHF Review of Systems Constitutional: see HPI Focused Exam Lactate Level 06/08/22 23:34: Lactic Acid Level 1.33 Height, Weight, BMI Height: '" Weight: lbs. oz. kg; 33.64 BMI Method: Exam Exam Patient acknowledged, consented, and participated in this virtual visit which was conducted using real time audio/video Vital Signs Date Time Temp Pulse Resp B/P (MAP) Pulse Ox O2 Delivery O2 Flow Rate FiO2 06/09/22 09:00 93 19 116/70 100 High Flow N/C 6.00 06/09/22 08:25 High Flow N/C 6.00 06/09/22 08:00 85 17 156/102 98 High Flow N/C 6.00 06/09/22 07:33 36.0 06/09/22 07:00 80 06/09/22 07:00 81 14 152/81 96 High Flow N/C 6.00 06/09/22 06:00 78 13 127/77 97 High Flow N/C 6.00 06/09/22 05:00 96 High Flow N/C 6.00 06/09/22 04:49 High Flow N/C 6.00 06/09/22 04:45 80 12 130/78 99 NIV Bilevel 30.00 06/09/22 04:30 36.5 NIV Bilevel 30.00 06/09/22 04:15 84 13 123/74 98 NIV Bilevel 30.00 06/09/22 04:12 95 30 06/09/22 03:45 86 33 147/86 93 NIV Bilevel 30.00 06/09/22 03:30 86 12 130/78 93 NIV Bilevel 30.00 06/09/22 03:22 NIV Bilevel 30 06/09/22 03:15 36.4 87 19 146/96 98 NIV Bilevel 30.00 06/09/22 03:14 90 06/09/22 03:00 30.00 06/09/22 03:00 87 16 146/96 97 NIV Bilevel 30.00 06/09/22 02:50 37.0 86 20 135/85 95 NIV Bilevel 06/09/22 02:30 NIV Bilevel 06/08/22 23:52 98 NIV Bilevel 40 06/08/22 23:35 36.4 100 30 192/102 (132) 87 Nasal Cannula 5.00 06/08/22 23:35 Room Air 5.00 06/08/22 23:20 120 23 98 40.00 I & O 06/09/22 07:00 Intake Total 850 ml Output Total 3800 ml Balance -2950 ml Height & Weight Height: '" Weight: lbs. oz. kg; 33.64 BMI Method: General Appearance: No Apparent Distress Capillary Refill: Less Than 3 Seconds Gastrointestinal: soft, other (ROTUND) Results Lab Laboratory Tests 06/08/22 23:34 06/09/22 07:34 Assessment/Plan Assessment/Plan 1 IGNACIO ALDRICH MD Jun 09, 2022 10:04
[2022-06-09] MEDS ORDERED: guaiFENesin/CODEINE (ROBITUSSIN AC) 10ML UDC PO PRN (11:15)
[2022-06-09] MEDS ORDERED: diphenhydrAMINE 25 MG TAB (BENADRYL) PO PRN (11:15)
[2022-06-09] MEDS ORDERED: ACETAMINOPHEN 325 MG TABLET PO PRN (11:15)
[2022-06-09] MEDS ORDERED: LOPERAMIDE 2 MG (IMODIUM) TABLET PO PRN (11:15)
[2022-06-09] MEDS ORDERED: CALCIUM CARBONATE 500 MG (TUMS) TAB.CHEW PO PRN (11:15)
[2022-06-09] MEDS ORDERED: DOCUSATE SODIUM 100 MG (COLACE) CAP PO PRN (11:15)
[2022-06-09] MEDS ORDERED: ONDANSETRON 4 MG/2 ML (SDV) Z0FRAN IVP PRN (11:15)
--- NOTE | 2022-06-09 11:52 | Consultation-Cardiology ---
HPI-Cardiology Cardiology Consultation: Date of Consultation 06/09/22 Date of Admission 06/08/22 Attending Physician [facility] Admitting Physician Admitting Physician: Sherri Mosley DO Attending Physician: Sherri Mosley DO Consulting Physician CAROL LEWIS JR, MD HPI: Time Seen by a Provider: 11:52 Chief Complaint: REASON FOR CONSULTATION: Dyspnea and abnormal troponin level. I had the pleasure of seeing Audie in the intensive care unit at [facility] in [place], [place] today. He is well-known to me from previous hospitalizations. He was actually here late last week after having just been discharged 1 day prior. He had presented to an outside facility with worsening shortness of breath and was found to have an elevated troponin level and he was transferred here with a presumptive diagnosis of non-ST elevation myocardial infarction. I had him undergo urgent cardiac catheterization and he was found to have mild to moderate two-vessel coronary disease that did not require revascularization. He was placed on clopidogrel in addition to the aspirin he was already taking at home. He was then discharged to home yesterday. I had prescribed a bottle of sublingual nitroglycerin which she got on his way home but within a few hours of arriving home, he felt like he was bloating and then had worsening shortness of breath. He used his nebulizer 3 times [id number] with albuterol. This did not help his breathing and he had his call 911. He did not remember about trying to take a nitroglycerin. He was then brought to our hospital for further treatment and evaluation. Overnight, he was given 2 doses of intravenous furosemide. He does not feel as though he is making much improvement in his dyspnea. He denies chest pain. He does have chronic, intermittent paroxysmal nocturnal dyspnea and orthopnea which are unchanged. He has been having some palpitations from time to time which are unchanged. He has also had lightheaded spells but denies syncope. His peripheral edema is about the same as it was when he was discharged yesterday. Because of the dyspnea and a borderline abnormal troponin level, a cardiology consultation was requested. Certain portions of this document may have been dictated utilizing voice recognition technology. Inherent to this technology, typographical and grammatical errors may exist. As much as I am diligent to identify and correct these mistakes, some errors may remain in the document. Review of Systems-Cardiology Review of Systems Other comments Review of 10 organ systems is as per the history of present illness, otherwise negative. [id number] Hx Patient Social History Marrital Status: Smoking Status: Former Smoker Have you traveled recently?: No Alcohol Use?: No Pt feels they are or have been: No Tobacco type used: Cigarettes Immunizations Up To Date Date of Influenza Vaccine: Jul 26, 2021 Past Medical History PMH As described under Assessment. Family Medical History Family Medical History: He does not report a family history of premature coronary artery disease. Allergies and Home Medications Allergies Coded Allergies: No Known Drug Allergies (Unverified , 11/26/21) Patient Home Medication List Home Medication List Reviewed: Yes Albuterol Sulfate (Albuterol Sulfate) 2.5 Mg/3 Ml (0.083 %) Vial.neb, 2.5 MG NEB Q6H PRN for SHORTNESS OF BREATH, (Reported) Entered as Reported by: ADDIS ZAPATA on 05/27/22 1455 Amiodarone HCl (Amiodarone HCl) 200 Mg Tablet, 200 MG PO DAILY Prescribed by: LINDA THOMPSON on 06/06/22 1238 Last Action: Continued Aspirin (Aspirin EC) 81 Mg Tablet.dr, 81 MG PO DAILY Prescribed by: CAROL LEWIS JR, MD on 06/08/22 0903 Last Action: Continued Atorvastatin Calcium (Atorvastatin Calcium) 20 Mg Tablet, 20 MG PO DAILY, (Reported) Entered as Reported by: GENIA CODY on 11/26/21 1307 Last Action: Continued Clopidogrel Bisulfate (Clopidogrel) 75 Mg Tablet, 75 MG PO DAILY Prescribed by: CAROL LEWIS JR, MD on 06/08/22 1114 Last Action: Continued Diltiazem HCl (Diltiazem 24Hr ER) 120 Mg Cap.er.24h, 240 MG PO DAILY Prescribed by: LINDA THOMPSON on 06/06/22 1238 Last Action: Continued Ferrous Sulfate (Ferrous Sulfate) 325 Mg (65 Mg Iron) Tablet, 325 MG PO Q48H, (Reported) Entered as Reported by: ADDIS ZAPATA on 02/13/22 1507 Furosemide (Furosemide) 40 Mg Tablet, 40 MG PO DAILY, (Reported) Entered as Reported by: GENIA CODY on 11/26/21 1307 Last Action: Continued Guaifenesin (Mucinex) 1,200 Mg Tab.er.12h, 1,200 MG PO BID, (Reported) Entered as Reported by: GENIA CODY on 11/26/211306 Last Action: Converted Hydrocodone/Acetaminophen (Hydrocodone-Acetamin 10-325 mg) 10 Mg-325 Mg Tablet, 1 EACH PO TID PRN for PAIN-MODERATE (5-7), (Reported) Entered as Reported by: ROXANA WALLIS on 05/26/22 130 Magnesium Oxide (Magnesium Oxide) 400 Mg Tablet, 400 MG PO HS, (Reported) Entered as Reported by: ADDIS ZAPATA on 02/13/221506 Last Action: Converted Multivitamin (Multivitamin) 1 Each Tablet, 1 EACH PO DAILY, (Reported) Entered as Reported by: ADDIS ZAPATA on 02/13/221506 Nitroglycerin (Nitroglycerin) 0.4 Mg Tab.subl, 0.4 MG SL UD PRN for CHEST PAIN (ANGINA) Prescribed by: CAROL LEWIS JR, MD on 06/08/22 09 Last Action: Continued Pantoprazole Sodium (Pantoprazole Sodium) 40 Mg Tablet.dr, 40 MG PO HS, (Reported) Entered as Reported by: GENIA CODY on 11/26/211306 Last Action: Continued Potassium Chloride (Potassium Chloride) 20 Meq Tab.er.prt, 20 MEQ PO DAILY, (Reported) Entered as Reported by: ADDIS ZAPATA on 02/13/221506 Last Action: Continued Prednisone (Prednisone) 10 Mg Tab, 0 PO UD Prescribed by: SHERRI MOSLEY on 06/08/22 09 Tiotropium Br/Olodaterol HCl (Stiolto Respimat Inhal Morgan) 2.5 Mcg-2.5 Mcg/Actuation Mist.inhal, 2 PUFF INH DAILY, (Reported) Entered as Reported by: ADDIS ZAPATA on 05/27/22 145 Discontinued Medications Diltiazem HCl (Diltiazem ER) 120 Mg Capsule.er, 120 MG PO DAILY, (Reported) Entered as Reported by: ADDIS ZAPATA on 02/13/22 150 Levofloxacin (Levofloxacin) 750 Mg Tablet, 750 MG PO DAILY, (Reported) Entered as Reported by: ADDIS ZAPATA on 8/06/10 1455 Prednisone (Prednisone) 20 Mg Tab, MG PO DAILY, (Reported) Entered as Reported by: ADDIS ZAPATA on 05/27/22 1455 Exam Vital Signs Vital Signs Date Time Temp Pulse Resp B/P (MAP) Pulse Ox O2 Delivery O2 Flow Rate FiO2 06/09/22 11:00 89 17 150/74 94 High Flow N/C 6.00 06/09/22 07:33 36.0 06/09/22 04:12 30 Physical Exam General: Alert. Mild respiratory distress while speaking. Well nourished and appears stated age. He is wearing oxygen by nasal cannula. Eye: Extraocular movements are intact. Conjunctivae are clear. There are no xanthelasma. HENT: Normocephalic. Atraumatic. Carotid pulsations 2/2 without bruits. Neck: Jugular venous pressure does not appear elevated. No thyromegaly appreciated. Respiratory: Lungs have scattered upper airway sounds bilaterally. Respirations are non-labored. Breath sounds are equal. Symmetrical chest wall expansion. Cardiovascular: Normal rate. Regular rhythm. Distant S1/S2. No murmur. No gallop. Point of maximal impulse is not appear displaced. Good pulses equal in all extremities. 1+ bilateral pretibial edema. Gastrointestinal: Soft. Normal bowel sounds. Skin: Skin turgor is normal. There is no pallor. Musculoskeletal: No kyphosis or scoliosis appreciated. Neurologic: Alert and oriented to person, place, time. Cranial nerves 3-12 appear grossly intact. The patient has good motor tone strength in the upper and lower extremities bilaterally. Psychiatric: Cooperative. Anxious. Labs Laboratory Tests Test 06/08/22 23:23 06/08/22 23:34 06/09/22 00:15 06/09/22 01:13 Range/Units Urine Color YELLOW Urine Clarity CLEAR Urine pH 7.0 5-9 Urine Specific Landis 1.015 L 1.016-1.022 Urine Protein 2+ H NEGATIVE Urine Glucose (UA) NEGATIVE NEGATIVE Urine Ketones NEGATIVE NEGATIVE Urine Nitrite NEGATIVE NEGATIVE Urine Bilirubin NEGATIVE NEGATIVE Urine Urobilinogen 1.0 < = 1.0 MG/DL Urine Leukocyte Esterase NEGATIVE NEGATIVE Urine RBC (Auto) TRACE-I H NEGATIVE Urine RBC NONE /HPF Urine WBC NONE /HPF Urine Squamous Epithelial Cells NONE /HPF Urine Crystals NONE /LPF Urine Bacteria TRACE /HPF Urine Casts NONE /LPF Urine Mucus NEGATIVE /LPF Urine Culture Indicated NO White Blood Count 12.7 H 4.3-11.0 10^3/uL Red Blood Count 4.40 4.30-5.52 10^6/uL Hemoglobin 12.4 L 13.3-17.7 g/dL Hematocrit 39 L 40-54 % Mean Corpuscular Volume 88 80-99 fL Mean Corpuscular Hemoglobin 28 25-34 pg Mean Corpuscular Hemoglobin Concent 32 32-36 g/dL Red Cell Distribution Width 16.7 H 10.0-14.5 % Platelet Count 214 130-400 10^3/uL Mean Platelet Volume 10.5 9.0-12.2 fL Immature Granulocyte % (Auto) 5 % Neutrophils (%) (Auto) 81 H 42-75 % Lymphocytes (%) (Auto) 7 L 12-44 % Monocytes (%) (Auto) 7 0-12 % Eosinophils (%) (Auto) 0 0-10 % Basophils (%) (Auto) 0 0-10 % Neutrophils # (Auto) 10.3 H 1.8-7.8 10^3/uL Lymphocytes # (Auto) 0.8 L 1.0-4.0 10^3/uL Monocytes # (Auto) 0.9 0.0-1.0 10^3/uL Eosinophils # (Auto) 0.0 0.0-0.3 10^3/uL Basophils # (Auto) 0.0 0.0-0.1 10^3/uL Immature Granulocyte # (Auto) 0.6 H 0.0-0.1 10^3/uL Erythrocyte Sedimentation Rate 5 0-30 MM/HR Prothrombin Time 12.5 12.2-14.7 SEC INR Comment 0.9 0.8-1.4 Activated Partial Thromboplast Time 24 24-35 SEC D-Dimer 0.93 H 0.00-0.49 UG/ML Sodium Level 142 135-145 MMOL/L Potassium Level 3.7 3.6-5.0 MMOL/L Chloride Level 103 98-107 MMOL/L Carbon Dioxide Level 26 21-32 MMOL/L Anion Gap 13 5-14 MMOL/L Blood Urea Nitrogen 29 H 7-18 MG/DL Creatinine 0.96 0.60-1.30 MG/DL Estimat Glomerular Filtration Rate 87 BUN/Creatinine Ratio 30 Glucose Level 152 H 70-105 MG/DL Lactic Acid Level 1.33 0.50-2.00 MMOL/L Calcium Level 8.9 8.5-10.1 MG/DL Corrected Calcium 8.9 8.5-10.1 MG/DL Magnesium Level 2.2 1.6-2.4 MG/DL Total Bilirubin 0.7 0.1-1.0 MG/DL Aspartate Amino Transf (AST/SGOT) 42 H 5-34 U/L Alanine Aminotransferase (ALT/SGPT) 48 0-55 U/L Alkaline Phosphatase 64 40-136 U/L Total Creatine Kinase 110 30-200 U/L Creatine Kinase MB 4.0 <6.6 NG/ML Myoglobin 61.3 10.0-92.0 NG/ML Troponin I 0.059 H <0.028 NG/ML C-Reactive Protein High Sensitivity 0.07 0.00-0.50 MG/DL B-Type Natriuretic Peptide 300.5 H <100.0 PG/ML Total Protein 6.6 6.4-8.2 GM/DL Albumin 4.0 3.2-4.5 GM/DL Procalcitonin 0.03 <0.10 NG/ML Influenza Type A (RT-PCR) Not Detected Not Detecte Influenza Type B (RT-PCR) Not Detected Not Detecte SARS-CoV-2 RNA (RT-PCR) Not Detected Not Detecte Bedside Blood Gas pH (LAB) 7.418 H 7.310-7.410 Bedside Blood Gas pCO2 (LAB) 46.2 41.0-51.0 mmHg Bedside Blood Gas pO2 (LAB) 53 L 80-105 mmHg Bedside Blood Gas HCO3 (LAB) 29.8 H 23.0-28.0 mmol/L POC Blood Gas Total CO2 Calc 31 H 24-29 mmol/L Bedside Bl Gas O2 Saturation (Calc) 87 L 95-98 % Bedside Arterial Blood Base Excess 5 H -2-3 mmol/L Urine Opiates Screen POSITIVE H NEGATIVE Urine Oxycodone Screen POSITIVE H NEGATIVE Urine Methadone Screen NEGATIVE NEGATIVE Urine Propoxyphene Screen NEGATIVE NEGATIVE Urine Barbiturates Screen NEGATIVE NEGATIVE Ur Tricyclic Antidepressants Screen NEGATIVE NEGATIVE Urine Phencyclidine Screen NEGATIVE NEGATIVE Urine Amphetamines Screen NEGATIVE NEGATIVE Urine Methamphetamines Screen NEGATIVE NEGATIVE Urine Benzodiazepines Screen POSITIVE H NEGATIVE Urine Cocaine Screen NEGATIVE NEGATIVE Urine Cannabinoids Screen NEGATIVE NEGATIVE Serum Alcohol < 10 <10 MG/DL Test 06/09/22 04:31 06/09/22 07:34 Range/Units Bedside Blood Gas pH (LAB) 7.499 H 7.310-7.410 Bedside Blood Gas pCO2 (LAB) 39.6 L 41.0-51.0 mmHg Bedside Blood Gas pO2 (LAB) 67 L 80-105 mmHg Bedside Blood Gas HCO3 (LAB) 30.8 H 23.0-28.0 mmol/L POC Blood Gas Total CO2 Calc 32 H 24-29 mmol/L Bedside Bl Gas O2 Saturation (Calc) 95 95-98 % Bedside Arterial Blood Base Excess 8 H -2-3 mmol/L White Blood Count 10.9 4.3-11.0 10^3/uL Red Blood Count 4.32 4.30-5.52 10^6/uL Hemoglobin 12.3 L 13.3-17.7 g/dL Hematocrit 38 L 40-54 % Mean Corpuscular Volume 87 80-99 fL Mean Corpuscular Hemoglobin 29 25-34 pg Mean Corpuscular Hemoglobin Concent 33 32-36 g/dL Red Cell Distribution Width 16.8 H 10.0-14.5 % Platelet Count 177 130-400 10^3/uL Mean Platelet Volume 10.5 9.0-12.2 fL Immature Granulocyte % (Auto) 2 % Neutrophils (%) (Auto) 94 H 42-75 % Lymphocytes (%) (Auto) 2 L 12-44 % Monocytes (%) (Auto) 2 0-12 % Eosinophils (%) (Auto) 0 0-10 % Basophils (%) (Auto) 0 0-10 % Neutrophils # (Auto) 10.2 H 1.8-7.8 10^3/uL Lymphocytes # (Auto) 0.2 L 1.0-4.0 10^3/uL Monocytes # (Auto) 0.2 0.0-1.0 10^3/uL Eosinophils # (Auto) 0.0 0.0-0.3 10^3/uL Basophils # (Auto) 0.0 0.0-0.1 10^3/uL Immature Granulocyte # (Auto) 0.2 H 0.0-0.1 10^3/uL Sodium Level 141 135-145 MMOL/L Potassium Level 3.2 L 3.6-5.0 MMOL/L Chloride Level 97 L 98-107 MMOL/L Carbon Dioxide Level 28 21-32 MMOL/L Anion Gap 16 H 5-14 MMOL/L Blood Urea Nitrogen 26 H 7-18 MG/DL Creatinine 0.93 0.60-1.30 MG/DL Estimat Glomerular Filtration Rate 91 BUN/Creatinine Ratio 28 Glucose Level 250 H 70-105 MG/DL Calcium Level 8.7 8.5-10.1 MG/DL Corrected Calcium 8.7 8.5-10.1 MG/DL Phosphorus Level 3.9 2.3-4.7 MG/DL Magnesium Level 2.0 1.6-2.4 MG/DL Total Bilirubin 0.7 0.1-1.0 MG/DL Aspartate Amino Transf (AST/SGOT) 27 5-34 U/L Alanine Aminotransferase (ALT/SGPT) 42 0-55 U/L Alkaline Phosphatase 60 40-136 U/L Troponin I 0.074 H <0.028 NG/ML B-Type Natriuretic Peptide 322.1 H <100.0 PG/ML Total Protein 6.7 6.4-8.2 GM/DL Albumin 4.0 3.2-4.5 GM/DL ECG Impression ECG Comment Electrocardiogram from the emergency room last evening showed sinus tachycardia at 103 bpm with possible old anterior myocardial infarction. Diagnosis/Problems Diagnosis/Problems (1) Coronary artery disease with unstable angina pectoris Assessment & Plan: He has a borderline elevated troponin level but I suspect this is the tail end of the non-ST elevation myocardial infarction he suffered last week. I have reordered his aspirin, clopidogrel and statin medication. He is not on beta-jelena due to severe underlying pulmonary disease. I will restart his diltiazem. I have also added long-acting nitrates. No additional cardiac testing is indicated at this time. (2) Acute on chronic heart failure with preserved ejection fraction (HFpEF) Status: Acute Assessment & Plan: He may again have some decompensation of his heart failure. He was treated with 2 doses of intravenous Lasix. I will resume his normal oral dose of Lasix tomorrow. (3) Paroxysmal atrial fibrillation Status: Chronic Assessment & Plan: He has been remaining in sinus rhythm on amiodarone. I do not have him on oral anticoagulation because his initial episode of atrial fibrillation was most likely provoked by a pulmonary embolus and has not recurred in several months. (4) Ventricular tachycardia Status: Acute Assessment & Plan: This occurred during a previous hospitalization and there have been no signs of recurrence. Continue diltiazem. (5) Pulmonary hypertension Status: Chronic Assessment & Plan: His echocardiogram from earlier this year showed pulmonary hypertension. This is most likely due to his pulmonary disease and heart failure. He should continue with home oxygen. He did also undergo a CT angiogram this admission which showed no evidence of pulmonary embolism. (6) Primary hypertension Status: Chronic Assessment & Plan: Continue diltiazem. (7) Mixed hyperlipidemia Status: Chronic Assessment & Plan: Continue statin medication. (8) Acute on chronic respiratory failure with hypoxemia Status: Acute Assessment & Plan: Most likely due to his underlying pulmonary disease with some superimposed heart failure. It appears as though he may still have a pulmonary infiltrate. CAROL LEWIS JR, MD Jun 09, 2022 11:52
[2022-06-09] MEDS ORDERED: ISOSORBIDE MONONITRATE 30 MG (IMDUR) TAB PO ONE (12:00)
[2022-06-09] MEDS ORDERED: NITROGLYCERIN 0.4 MG SL TABS BTL 25'S SL PRN (12:00)
[2022-06-09] MEDS: ENOXAPARIN 40 MG/0.4 ML (LOVENOX) SYR SC SCH (12:10)
[2022-06-09] MEDS: HYDROmorphone 2 MG/ML VIAL (DILAUDID) IV PRN ×5 (12:11→22:43)
[2022-06-09] MEDS: ASPIRIN E.C. 81 MG (ECOTRIN) TAB PO SCH (14:27)
[2022-06-09] MEDS: CLOPIDOGREL 75 MG (PLAVIX) TABLET PO SCH (14:28)
[2022-06-09] MEDS: MELATONIN 3 MG TABLET PO PRN (20:50)
[2022-06-09] MEDS: MAGNESIUM OXIDE (MAG-OX)400 MG TAB PO SCH (20:50)
[2022-06-09] MEDS: PANTOPRAZOLE 40 MG (PROTONIX) TAB PO SCH (20:50)
[2022-06-09] MEDS: guaiFENesin (MUCINEX) 600 MG TAB PO SCH (20:50)
[2022-06-09] MEDS: polyethylene glycoL POWDER 17 GM (MIRALAX) PACK PO SCH (21:50)
[2022-06-09] MEDS: SENNA W/DOCUSATE (SENOKOT S) TABLET PO SCH (21:50)
[2022-06-10] MEDS: HYDROmorphone 2 MG/ML VIAL (DILAUDID) IV PRN ×11 (00:59→23:10)
[2022-06-10] MEDS: VASOPRESSIN INJECTION 20 UNIT in NS (IVPB) 100 ML IV SCH (01:55)
[2022-06-10] MEDS: RT-ALBUTEROL/IPRATROPIUM 3 ML (DUONEB) VIAL INH SCH ×6 (02:12→21:00)
[2022-06-10] MEDS: MEROPENEM 500 MG/NS 100 ML IVPB IV SCH ×8 (02:40→20:34)
[2022-06-10 05:24] LABS: BASOPHILS % (AUTO) 0 % (0-10); EOSINOPHILS % (AUTO) 0 % (0-10); HEMATOCRIT 34 % (40-54); LYMPHOCYTES # (AUTO) 0.7 10^3/uL (1.0-4.0); LYMPHOCYTES % (AUTO) 7 % (12-44); MEAN CORPUSCULAR HEMOGLOBIN 28 pg (25-34); MEAN CORPUSCULAR HGB CONC 32 g/dL (32-36); MEAN CORPUSCULAR VOLUME 88 fL (80-99); MEAN PLATELET VOLUME 10.8 fL (9.0-12.2); MONOCYTES # (AUTO) 0.8 10^3/uL (0.0-1.0); MONOCYTES % (AUTO) 8 % (0-12); NEUTROPHILS # (AUTO) 8.3 10^3/uL (1.8-7.8); NEUTROPHILS % (AUTO) 83 % (42-75); PLATELET COUNT 172 10^3/uL (130-400)
[2022-06-10 05:39] LABS: ALBUMIN 3.4 GM/DL (3.2-4.5); POTASSIUM 4.5 MMOL/L (3.6-5.0)
[2022-06-10 05:42] LABS: TOTAL PROTEIN 5.8 GM/DL (6.4-8.2)
[2022-06-10 05:43] LABS: BILIRUBIN,TOTAL 0.5 MG/DL (0.1-1.0)
[2022-06-10 05:45] LABS: CREATININE SERUM 0.94 MG/DL (0.60-1.30); PHOSPHORUS 3.2 MG/DL (2.3-4.7)
[2022-06-10] MEDS: MAGNESIUM 1 GM/100 ML IVPB 100 ML IV SCH (06:27)
[2022-06-10] MEDS: KCL 20 MEQ TAB (K-DUR) PO SCH ×2 (06:27→08:40)
[2022-06-10] MEDS: POTASSIUM CL 10MEQ/50ML IVPB 50 ML IV SCH (06:27)
[2022-06-10] MEDS: polyethylene glycoL POWDER 17 GM (MIRALAX) PACK PO SCH ×2 (07:24→20:36)
[2022-06-10] MEDS: NOREPINEPHRINE 8 MG/250 ML 250 ML IV SCH (07:24)
[2022-06-10] MEDS: SENNA W/DOCUSATE (SENOKOT S) TABLET PO SCH ×2 (07:24→20:36)
--- NOTE | 2022-06-10 07:52 | Tele-ICU Progress Note ---
Subjective Date Seen by a Provider: Jun 10, 2022 Time Seen by a Provider: 07:47 Subjective/Events-last exam Now on 4 lpm NC with SpO2 94%. On this at home Had recent admnittsion 05/26-06/06 for CHF exacerbation, COPD exacerbation. Returned for eval 06/07 after rolling off the couch and injuring ribs, but found to have troponin elevation. Cath done 06/07 with insignificant disease. Thought to be type II SD secondary to severe lung disease. Discharged earlier today 06/09- 66M with COPD requiring multiple prior intubations (most recent 01/2022), Stage 3 diastolic dysfunction with preserved EF, afib, VT, ongoing 1 ppd smoker, admitted with COPD exacerbation. w/u so far Acute resp failure ( on chronic ) - CTA 06/09 - NO PE - BIPAP used in ER - off now , ABG with mild chronic CO2 retention - doing well on 4 l o2 now - moniror AECOPD -now on solumedrol nebs. Meropenem restarted in ER (had been on last admit) ? Recent nonSTEMI type II - sypply/demad - cath - no occlusions - afib: currently NSR -as per cards - no AC Sepsis Event Evaluation Height, Weight, BMI Height: '" Weight: lbs. oz. kg; 33.64 BMI Method: Focused Exam Lactate Level 06/08/22 23:34: Lactic Acid Level 1.33 Exam Exam Patient acknowledged, consented, and participated in this virtual visit which was conducted using real time audio/video Vital Signs Date Time Temp Pulse Resp B/P (MAP) Pulse Ox O2 Delivery O2 Flow Rate FiO2 06/10/22 07:29 94 High Flow N/C 4.00 06/10/22 06:00 68 13 108/64 95 High Flow N/C 4.00 06/10/22 05:00 81 11 132/75 96 High Flow N/C 4.00 06/10/22 04:00 High Flow N/C 4.00 06/10/22 04:00 36.3 06/10/22 04:00 75 10 99/67 92 High Flow N/C 4.00 06/10/22 03:00 79 12 117/47 97 High Flow N/C 4.00 06/10/22 02:12 98 High Flow N/C 4.00 06/10/22 02:00 73 9 99/63 94 High Flow N/C 4.00 06/10/22 01:00 81 06/10/22 01:00 81 20 142/88 96 High Flow N/C 4.00 06/10/22 00:00 36.3 06/10/22 00:00 76 11 113/66 94 High Flow N/C 4.00 06/09/22 23:59 High Flow N/C 4.00 06/09/22 23:00 77 11 110/63 94 High Flow N/C 4.00 06/09/22 22:04 96 High Flow N/C 4.00 06/09/22 22:00 73 13 110/62 95 High Flow N/C 4.00 06/09/22 21:00 89 14 127/73 92 High Flow N/C 4.00 06/09/22 20:00 High Flow N/C 4.00 06/09/22 20:00 36.6 06/09/22 20:00 82 17 104/58 97 High Flow N/C 4.00 06/09/22 19:33 84 20 133/74 97 High Flow N/C 4.00 06/09/22 19:00 84 06/09/22 18:47 97 High Flow N/C 4.00 06/09/22 18:00 81 15 101/63 96 High Flow N/C 4.00 06/09/22 17:00 90 14 143/79 96 High Flow N/C 4.00 06/09/22 16:00 89 25 147/85 96 High Flow N/C 4.00 06/09/22 16:00 High Flow N/C 6.00 06/09/22 15:29 98 High Flow N/C 4.00 06/09/22 15:00 89 24 136/95 97 High Flow N/C 4.00 06/09/22 14:00 83 18 139/79 100 High Flow N/C 4.00 06/09/22 13:00 90 15 130/70 98 High Flow N/C 4.00 06/09/22 12:57 83 06/09/22 12:14 36.1 06/09/22 12:00 High Flow N/C 6.00 06/09/22 12:00 80 11 131/77 98 High Flow N/C 4.00 06/09/22 11:00 89 17 150/74 94 High Flow N/C 4.00 06/09/22 10:00 82 12 113/62 95 High Flow N/C 4.00 06/09/22 09:00 93 19 116/70 100 High Flow N/C 4.00 06/09/22 08:25 High Flow N/C 6.00 06/09/22 08:00 85 17 156/102 98 High Flow N/C 6.00 I & O 06/10/22 06:59 Intake Total 2450 ml Output Total 4150 ml Balance -1700 ml Height & Weight Height: '" Weight: lbs. oz. kg; 33.64 BMI Method: General Appearance: Anxious, Chronically ill, Moderate Distress, Obese HEENT: PERRL/EOMI, Normal ENT Inspection, Pharynx Normal, Moist Mucous Membranes Neck: Full Range of Motion, Normal Inspection, Non Tender Respiratory: Chest Non Tender, Lungs Clear, No Respiratory Distress, Accessory Muscle Use, Decreased Breath Sounds, Wheezing Cardiovascular: Regular Rate, Rhythm, No Gallop, No JVD, No Murmur, Normal Peripheral Pulses Capillary Refill: Less Than 3 Seconds Gastrointestinal: normal bowel sounds, non tender, soft, other (ROTUND) Extremity: Normal Capillary Refill, Normal Inspection, Normal Range of Motion, Non Tender, No Calf Tenderness, No Pedal Edema Neurologic/Psychiatric: Alert, Oriented x3, No Motor/Sensory Deficits, Normal Mood/Affect Skin: Normal Color, Warm/Dry Lymphatic: No Adenopathy Results Lab Laboratory Tests 06/08/22 23:34 06/09/22 07:34 06/10/22 04:50 Assessment/Plan Assessment/Plan Recent exacerbation of COPD, doing better, remains on IV Meropenem, also on Cardizem po or a fib-now in sinus. ASA/Plavix, po daily Lasix, CXR 06/08 LLL infiltrate, CTA no pulm emb last ABG on 06/09 shows improvement in pCO2 from 46 to 39 Will continue on current meds, and can go to floor Critical Care: Critically Ill Patient Time spent with patient (mins): 30 GIDEON GILMORE MD Jun 10, 2022 07:52
[2022-06-10] MEDS: ENOXAPARIN 40 MG/0.4 ML (LOVENOX) SYR SC SCH (08:39)
[2022-06-10] MEDS: CLOPIDOGREL 75 MG (PLAVIX) TABLET PO SCH (08:40)
[2022-06-10] MEDS: ASPIRIN E.C. 81 MG (ECOTRIN) TAB PO SCH (08:40)
[2022-06-10] MEDS: AMIODARONE 200 MG (CORDARONE) TAB PO SCH (08:40)
[2022-06-10] MEDS: guaiFENesin (MUCINEX) 600 MG TAB PO SCH ×2 (08:40→20:35)
[2022-06-10] MEDS: FUROSEMIDE 40 MG (LASIX) TAB PO SCH (08:40)
[2022-06-10] MEDS: ALPRAZolam 0.25 MG (XANAX) TAB PO PRN ×2 (08:40→20:36)
[2022-06-10] MEDS: ISOSORBIDE MONONITRATE 30 MG (IMDUR) TAB PO SCH (08:40)
--- NOTE | 2022-06-10 08:42 | Cardiology Progress Note ---
Progress Note-Cardiology Events since last exam Date Seen by Provider: Jun 10, 2022 Time Seen by Provider: 08:41 Events since last exam I am following him due to heart failure and probable type II NSTEMI although his troponin levels may be elevated from his previous hospitalization. His breathing and peripheral edema are improved. He denies chest pain, palpitations, or syncope. Certain portions of this document may have been dictated utilizing voice recognition technology. Inherent to this technology, typographical and grammatical errors may exist. As much as I am diligent to identify and correct these mistakes, some errors may remain in the document. Vitals Last set of Vitals Signs Vital Signs 06/09/22 06/10/22 06/10/22 06/10/22 04:12 12:00 13:00 15:09 Pulse 82 Resp 9 Pulse Ox 94 O2 Delivery High Flow N/C O2 Flow Rate 4.00 FiO2 30 Labs Labs Laboratory Tests 06/10/22 04:50 Exam Vital Signs Vital Signs Date Time Temp Pulse Resp B/P (MAP) Pulse Ox O2 Delivery O2 Flow Rate FiO2 06/10/22 15:09 94 High Flow N/C 4.00 06/10/22 13:00 82 06/10/22 12:00 9 06/10/22 09:00 06/10/22 04:00 36.3 06/09/22 04:12 30 Physical Exam General: Alert. No acute distress. He is on oxygen by nasal cannula. He is obese. Eye: No xanthelasma. HENT: Normocephalic. Neck: Jugular venous pressure does not appear elevated. Respiratory: Lungs have some mild scattered upper airway sounds, improved. Respirations are non-labored. Breath sounds are equal. Symmetrical chest wall expansion. Cardiovascular: Normal rate. Regular rhythm. Distant S1/S2. No murmur. No gallop. Trace bilateral pretibial edema. Gastrointestinal: Soft. Normal bowel sounds. Skin: Warm. Dry. Neurologic: Alert and oriented to person, place, time. Cranial nerves 3-11 grossly intact. Psychiatric: Cooperative. Appropriate mood & affect. Labs Laboratory Tests Test 06/10/22 04:50 Range/Units White Blood Count 10.0 4.3-11.0 10^3/uL Red Blood Count 3.88 L 4.30-5.52 10^6/uL Hemoglobin 11.0 L 13.3-17.7 g/dL Hematocrit 34 L 40-54 % Mean Corpuscular Volume 88 80-99 fL Mean Corpuscular Hemoglobin 28 25-34 pg Mean Corpuscular Hemoglobin Concent 32 32-36 g/dL Red Cell Distribution Width 17.1 H 10.0-14.5 % Platelet Count 172 130-400 10^3/uL Mean Platelet Volume 10.8 9.0-12.2 fL Immature Granulocyte % (Auto) 3 % Neutrophils (%) (Auto) 83 H 42-75 % Lymphocytes (%) (Auto) 7 L 12-44 % Monocytes (%) (Auto) 8 0-12 % Eosinophils (%) (Auto) 0 0-10 % Basophils (%) (Auto) 0 0-10 % Neutrophils # (Auto) 8.3 H 1.8-7.8 10^3/uL Lymphocytes # (Auto) 0.7 L 1.0-4.0 10^3/uL Monocytes # (Auto) 0.8 0.0-1.0 10^3/uL Eosinophils # (Auto) 0.0 0.0-0.3 10^3/uL Basophils # (Auto) 0.0 0.0-0.1 10^3/uL Immature Granulocyte # (Auto) 0.3 H 0.0-0.1 10^3/uL Sodium Level 136 135-145 MMOL/L Potassium Level 4.5 3.6-5.0 MMOL/L Chloride Level 101 98-107 MMOL/L Carbon Dioxide Level 23 21-32 MMOL/L Anion Gap 12 5-14 MMOL/L Blood Urea Nitrogen 38 H 7-18 MG/DL Creatinine 0.94 0.60-1.30 MG/DL Estimat Glomerular Filtration Rate 89 BUN/Creatinine Ratio 40 Glucose Level 143 H 70-105 MG/DL Calcium Level 9.0 8.5-10.1 MG/DL Corrected Calcium 9.5 8.5-10.1 MG/DL Phosphorus Level 3.2 2.3-4.7 MG/DL Magnesium Level 2.0 1.6-2.4 MG/DL Total Bilirubin 0.5 0.1-1.0 MG/DL Aspartate Amino Transf (AST/SGOT) 21 5-34 U/L Alanine Aminotransferase (ALT/SGPT) 31 0-55 U/L Alkaline Phosphatase 54 40-136 U/L Total Protein 5.8 L 6.4-8.2 GM/DL Albumin 3.4 3.2-4.5 GM/DL Diagnosis/Problems Diagnosis/Problems (1) Coronary artery disease with unstable angina pectoris Assessment & Plan: He had a borderline elevated troponin level but I suspect this is the tail end of the non-ST elevation myocardial infarction he suffered last week. He should continue aspirin, clopidogrel, Ann-Marie and and statin medication. He is not on beta-jelena due to severe underlying pulmonary dise ase. I also added long-acting nitrates. No additional cardiac testing is indicated at this time. (2) Acute on chronic heart failure with preserved ejection fraction (HFpEF) Status: Acute Assessment & Plan: He may again have some decompensation of his heart failure. He was treated with 2 doses of intravenous Lasix. His breathing and peripheral edema have improved. I resumed his normal oral dose of Lasix. (3) Paroxysmal atrial fibrillation Status: Chronic Assessment & Plan: He has been remaining in sinus rhythm on amiodarone. I do not have him on oral anticoagulation because his initial episode of atrial fibrillation earlier in 2021 was most likely provoked by a pulmonary embolus and has not recurred in several months. (4) Ventricular tachycardia Status: Acute Assessment & Plan: This occurred during a previous hospitalization and there have been no signs of recurrence. Continue diltiazem. (5) Pulmonary hypertension Status: Chronic Assessment & Plan: His echocardiogram from earlier this year showed pulmonary hypertension. This is most likely due to his pulmonary disease and heart failure. He should continue with home oxygen. He did also undergo a CT angiogram this admission which showed no evidence of pulmonary embolism. (6) Primary hypertension Status: Chronic Assessment & Plan: Continue diltiazem. (7) Mixed hyperlipidemia Status: Chronic Assessment & Plan: Continue statin medication. (8) Acute on chronic respiratory failure with hypoxemia Status: Acute Assessment & Plan: Most likely due to his underlying pulmonary disease with some superimposed heart failure. It appears as though he may still have a p ulmonary infiltrate. CAROL LEWIS JR, MD Jun 10, 2022 08:42
[2022-06-10] MEDS ORDERED: ASPIRIN E.C. 81 MG (ECOTRIN) TAB PO SCH (09:00)
[2022-06-10] MEDS ORDERED: CLOPIDOGREL 75 MG (PLAVIX) TABLET PO SCH (09:00)
--- NOTE | 2022-06-10 10:10 | Physical Therapy Evaluation ---
PT Evaluation-General Medical Diagnosis Admission Date Jun 09, 2022 at 02:45 Medical Diagnosis: respiratory failure/CHF Onset Date: Jun 09, 2022 Therapy Diagnosis Therapy Diagnosis: impaired mobility/diminished pulmonary function Precautions Precautions/Isolations: Fall Prevention, Standard Precautions Referral Physician: Catalina Reason for Referral: Evaluation/Treatment Medical History Pertinent Medical History: CAD, COPD (O2 dependent), Heart Failure, HTN, PVD, Smoking Additional Medical History Covid Current History EMS secondary to SOA (dismissed from hospital same day he returned) Reviewed History: Yes Social History Home: Single Level Current Living Status: Spouse Prior Prior Level of Function SCALE: Activities may be completed with or without assistive devices. 8-Lzavnekvau-qyrdovn completes the activity by him/herself with no assistance from a helper. 5-Set-up or Clean-up Assistance-helper sets up or cleans up; patient completes activity. [place] assists only prior to or following the activity. 4-Supervision or Touching Assistance-helper provides verbal cues and/or touching/steadying and/or contact guard assistance as patient completes activity. Assistance may be provided throughout the activity or intermittently. 3-Partial/Moderate Assistance-helper does LESS THAN HALF the effort. [place] lifts, holds or supports trunk or limbs, but provides less than half the effort. 2-Substantial/Maximal Assistance-helper does MORE THAN HALF the effort. [place] lifts or holds trunk or limbs and provides more than half the effort. 7-Xlzrxltts-uiqwko does ALL the effort. Patient does none of the effort to co mplete the activity. Or, the assistance of 2 or more helpers is required for the patient to complete the activity. If activity was not attempted, code reason: 7-Patient Refused. 9-Not Applicable-not attempted and the patient did not perform the activity before the current illness, exacerbation or injury. 10-Not Attempted due to Environmental Limitations-(lack of equipment, weather restraints, etc.). 88-Not Attempted due to Medical Conditions or Safety Concerns. Bed Mobility: 6 Transfers (B,C,W/C): 6 Gait: 6 Indoor Mobility (Ambulation): Independent Prior Devices Use: Walker PT Evaluation-Current Subjective Patient agrees to PT. Objective Patient Orientation: Normal For Age Attachments: Oxygen ROM/Strength ROM Lower Extremities bilateral LE WFL Strength Lower Extremities 4-/5 grossly bilateral LE all planes Integumentary/Posture Bowel Incontinence: No Bladder Incontinence: No Posture slight kyphosis Neuromuscular (Tone, Coordination, Reflexes) grossly intact Sensory Vision: Functional Hearing: Functional Transfers Lying to Sitting/Side of Bed(Q: 6 Sit to Stand (QC): 4 Chair/Iwa-le-Jwkjo Xfer(QC): 4 Gait Does the Patient Walk?: Yes Mode of Locomotion: Walk Anticipated Mode of Locomotion: Walk Walk 10 feet (QC): 4 Distance: 10' Gait Assistive Device: FWW Comments/Gait Description safe and functional with no deviation Balance Sitting Static: Normal Sitting Dynamic: Normal Standing Static: Normal Standing Dynamic: Normal Assessment/Needs 66 y.o. male, will benefit from skilled PT to address functional mobility and strength to improve pulmonary function. Patient SAO2 decreases to 75% on O2 with minimal activity. Rehab Potential: Guarded PT Skilled Nursing Goals Party Coordinator Goals PT Skilled Nursing Goals Time Frame: Jun 22, 2022 Roll Left & Right (QC): 6 Sit to Lying (QC): 6 Lying-Sitting on Side/Bed(QC): 6 Sit to Stand (QC): 6 Chair/Pnj-zx-Yagcr Xfer(QC): 6 Toilet Transfer (QC): 6 Walk 10 feet (QC): 5 Walk 50ft with 2 Turns (QC): 5 Walk 150 ft (QC): 5 PT Plan Problem List Problem List: Activity Tolerance, Functional Strength, Safety, Balance, Gait, Transfer Treatment/Plan Treatment Plan: Continue Plan of Care Treatment Plan: Education, Functional Activity Yvette, Functional Strength, Gait, Safety, Therapeutic Exercise, Transfers Treatment Duration: Jun 22, 2022 Frequency: 6 times per week Estimated Hrs Per Day: .25 hour per day Time/GCodes Time In: 735 Time Out: 748 Total Billed Treatment Time: 13 Total Billed Treatment 1 visit EVMod 13 min DOUGLAS WILEY PT Jun 10, 2022 10:10
[2022-06-10] MEDS: methylPREDNISolone 40 MG/ML (Solu-MEDROL) VIAL IV SCH ×2 (10:34→20:35)
--- NOTE | 2022-06-10 11:42 | Progress Note - Hospitalist ---
IJKYLAHEML 06/10/22 1142: Subjective HPI/CC On Admission CC: Respiratory failure with volume overload HPI: This is a 66yoWM well known to me from multiple hospital stays for the same issue due to severe COPD and continued smoking until 4 weeks prior to last admit who presented to the ER with dyspnea after he was just DC after cardiac cath revealing mild CAD by Dr Pugh. Patient was given IV Lasix. O2 is at 5L/min. Patient did use biPAP last night and is now doing better and has received IV Lasix with good results. Subjective/Events-last exam Audie Gonzalez is a 66y/o M being seen for follow up due to acute on chronic respiratory failure. Pt reports that he has been coughing w/ some production of sputum. Denies any SOB. States that he has been having some generalized soreness and fatigue. Did not use the BiPAP last night. Reports frequent use of his incentive spirometer and aerobika devices. Denies any other concerns when asked. Review of Systems General: No Chills; Fatigue HEENT: No Head Aches, No Visual Changes Pulmonary: No Dyspnea; Cough Cardiovascular: No: Chest Pain, Palpitations Gastrointestinal: No: Nausea, Vomiting, Abdominal Pain Genitourinary: No Dysuria, No Hematuria Musculoskeletal: back pain; No: neck pain Neurological: Weakness; No: Numbness Focused Exam Lactate Level 06/08/22 23:34: Lactic Acid Level 1.33 Objective Exam Vital Signs Vital Signs Date Time Temp Pulse Resp B/P (MAP) Pulse Ox O2 Delivery O2 Flow Rate FiO2 06/10/22 11:07 96 High Flow N/C 4.00 06/10/22 10:00 81 13 06/10/22 09:00 06/10/22 04:00 36.3 06/09/22 04:12 30 Capillary Refill : Less Than 3 Seconds General Appearance: No Apparent Distress, WD/WN, Chronically ill Neck: Non Tender, Supple Respiratory: No Respiratory Distress, Decreased Breath Sounds (diffuse) Cardiovascular: Regular Rate, Rhythm, No Murmur, Normal Peripheral Pulses Gastrointestinal: Non Tender, Soft Extremity: Non Tender, No Calf Tenderness, Pedal Edema (1+/4) Neurologic/Psychiatric: Alert, Oriented x3, Normal Mood/Affect Skin: Normal Color, Warm/Dry Lymphatic: No Adenopathy Results/Procedures Lab Laboratory Tests 06/10/22 04:50 Patient resulted labs reviewed. Assessment/Plan Assessment and Plan Assess & Plan/Chief Complaint Assessment: Acute on chronic respiratory failure BiPAP dependent Severe COPD/Emphysema PAF CAD mild disease in recent cath on Friday Dr Pugh Recent smoking cessation 4 weeks ago Previous respiratory failure with long ventilator course Anxiety RA Polyarthrlagia Plan: Supplemental O2 BiPAP as needed Continue meropenem Start Solumedrol 80mg BID Oral lasix 40mg, on supplemental K+ Cardiology following Continue PT and RT Moving to 4th floor today SHERRI MOSLEY DO 06/11/22 0523: Subjective HPI/CC On Admission Date Seen by Provider: Jun 10, 2022 Time Seen by Provider: 09:30 Subjective/Events-last exam Pt is doing about the same Transferring to 4th floor Didn't wear BiPAP last night SoluMedrol maintained at 80 mg IV q 12 hours Meropenem antibiotic maintained Midline will be required Assessment/Plan Assessment and Plan Assess & Plan/Chief Complaint Move to [facility] Poor prognosis Supervisory-Addendum Brief Verification & Attestation Participated in pt care: history, MDM, physical Personally performed: exam, history, MDM, supervision of care Care discussed with: Medical Student Procedures: n/a Results interpretation: Verified all documentation Verification and Attestation of Medical Student E/M Service A medical student performed and documented this service in my presence. I reviewed and verified all information documented by the medical student and made modifications to such information, when appropriate. I personally performed the physical exam and medical decision making. Sherri Mosley Jun 11, 2022,05:23 MEL FLETCHER Jun 10, 2022 11:42 SHERRI MOSLEY DO Jun 11, 2022 05:23
--- NOTE | 2022-06-10 14:05 | Occupational Therapy Eval ---
OT Evaluation-General/PLF Medical Diagnosis Admission Date Jun 09, 2022 at 02:45 Medical Diagnosis: respiratory failure/CHF Onset Date: Jun 09, 2022 Therapy Diagnosis Therapy Diagnosis: reduced adl status Precautions Precautions/Isolations: Fall Prevention, Standard Precautions Referral Physician: Catalina Olea Reason: Evaluation/Treatment Medical History Pertinent Medical History: CAD, COPD (O2 dependent), Heart Failure, HTN, PVD, Smoking Current History Presents to ER with SOA. Chronic COPD. Pt lives with in a mobile home. Ramp entrance. Per patient, he was indep with adls and his manages all the iadls. He does not use any AD at baseline. Reviewed History: Yes Social History Home: Single Level (mobile home) Current Living Status: Spouse Entry Into Home: Ramp ADL-Prior Level of Function SCALE: Activities may be completed with or without assistive devices. 0-Qkrmoehmli-qxsayxb completes the activity by him/herself with no assistance from a helper. 5-Set-up or Clean-up Assistance-helper sets up or cleans up; patient completes activity. [place] assists only prior to or following the activity. 4-Supervision or Touching Assistance-helper provides verbal cues and/or touching/steadying and/or contact guard assistance as patient completes activity. Assistance may be provided throughout the activity or intermittently. 3-Partial/Moderate Assistance-helper does LESS THAN HALF the effort. [place] lifts, holds or supports trunk or limbs, but provides less than half the effort. 2-Substantial/Maximal Assistance-helper does MORE THAN HALF the effort. [place] lifts or holds trunk or limbs and provides more than half the effort. 4-Ktqfkmbez-hcatiu does ALL the effort. Patient does none of the effort to complete the activity. Or, the assistance of 2 or more helpers is required for the patient to complete the activity. If activity was not attempted, code reason: 7-Patient Refused. 9-Not Applicable-not attempted and the patient did not perform the activity before the current illness, exacerbation or injury. 10-Not Attempted due to Environmental Limitations-(lack of equipment, weather restraints, etc.). 88-Not Attempted due to Medical Conditions or Safety Concerns. Self Care: Independent Functional Cognition: Independent DME/Equipment: Bath Chair (built in seat), Grab Bars, Shower Drive Self: Yes OT Current Status Subjective Pt reports 9/10 pain in LUE secondary to bruising. RN notified. Appearance Pt returned to supine in bed, all needs within reach. Mental Status/Objective Patient Orientation: Person, Place, Situation Attachments: IV, Oxygen (4L), Telemetry Current Hand Dominance: Right Upper Extremity ROM WNL Upper Extremity Strength Bilateral shoulders: 3+/5 Elbow-distally: 4/5 ADL-Treatment Lower Body Dressing (QC): 4 On/Off Footwear (QC): 4 Pt sitting on side of bed at OT arrival. RN reports pt is transferring to medical floor. He stood and took 2-3 steps into transport chair with steadying assist. Slightly unsteady on feet. When transferring back to bed, OT provided pt with walker. Slightly improved balance notable, yet still requires CGA for safety. He was able to demonstrate donning/doffing bilateral socks with use of cross over method and SBA. SOB notable, cues for PLB. Education on energy conservation strategies and compensatory techniques during adls. Pt likely needing steadying assist with standing functional tasks at this time. Education OT Patient Education: Correct positioning, Energy conservation, Modified ADL techniques, Purpose of tx/functional activities, Safety issues, Transfer techniques Teaching Recipient: Patient Teaching Methods: Demonstration, Discussion Response to Teaching: Verbalize Understanding, Return Demonstration, Reinforcement Needed OT Postal Service Window Clerk Goals Postal Service Window Clerk Goals Time Frame: Jun 19, 2022 Eating (QC): 6 Oral Hygiene (QC): 5 Toileting Hygiene (QC): 4 Shower/Bathe Self (QC): 4 Upper Body Dressing (QC): 5 Lower Body Dressing (QC): 5 On/Off Footwear (QC): 5 1=Demonstrate adherence to instructed precautions during ADL tasks. 2=Patient will verbalize/demonstrate understanding of assistive devices/modifications for ADL. 3=Patient will improve strength/tolerance for activity to enable patient to perf orm ADL's. OT Education/Plan Problem List/Assessment Assessment: Decreased Activ Tolerance, Decreased Safety Aware, Decreased UE Strength, Edema, Impaired Funct Balance, Impaired Self-Care Skills Discharge Recommendations Plan/Recommendations: Continue POC Therapy Discharge Recommendati: Post Acute OT (Home Health OT ) Treatment Plan/Plan of Care Treatment,Training & Education: Yes Patient would benefit from OT for education, treatment and training to promote independence in ADL's, mobility, safety and/or upper extremity function for ADL's. Plan of Care: ADL Retraining, Functional Mobility, Group Exercise/Act as Ind, UE Funct Exercise/Act Treatment Duration: Jun 19, 2022 Frequency: 3 times per week (3-5x/week) Estimated Hrs Per Day: .25 hour per day Agreement: Yes Rehab Potential: Fair Time/GCodes Start Time: 13:37 Stop Time: 13:55 Total Time Billed (hr/min): 18 Billed Treatment Time 1 visit Tiny Orellana OT Jun 10, 2022 14:05
[2022-06-10] MEDS: MELATONIN 3 MG TABLET PO PRN (20:35)
[2022-06-10] MEDS: PANTOPRAZOLE 40 MG (PROTONIX) TAB PO SCH (20:35)
[2022-06-10] MEDS: MAGNESIUM OXIDE (MAG-OX)400 MG TAB PO SCH (20:35)
[2022-06-11] MEDS: MEROPENEM 500 MG/NS 100 ML IVPB IV SCH ×8 (02:05→18:59)
[2022-06-11] MEDS: HYDROmorphone 2 MG/ML VIAL (DILAUDID) IV PRN ×7 (02:06→18:40)
[2022-06-11] MEDS: RT-ALBUTEROL/IPRATROPIUM 3 ML (DUONEB) VIAL INH SCH ×6 (02:57→22:16)
[2022-06-11 06:47] LABS: BASOPHILS % (AUTO) 0 % (0-10); EOSINOPHILS % (AUTO) 0 % (0-10); HEMATOCRIT 33 % (40-54); HEMOGLOBIN 10.9 g/dL (13.3-17.7); LYMPHOCYTES # (AUTO) 0.3 10^3/uL (1.0-4.0); LYMPHOCYTES % (AUTO) 3 % (12-44); MEAN CORPUSCULAR HEMOGLOBIN 29 pg (25-34); MEAN CORPUSCULAR HGB CONC 33 g/dL (32-36); MEAN CORPUSCULAR VOLUME 87 fL (80-99); MEAN PLATELET VOLUME 10.9 fL (9.0-12.2); MONOCYTES # (AUTO) 0.1 10^3/uL (0.0-1.0); MONOCYTES % (AUTO) 2 % (0-12); NEUTROPHILS # (AUTO) 7.2 10^3/uL (1.8-7.8); NEUTROPHILS % (AUTO) 92 % (42-75); PLATELET COUNT 176 10^3/uL (130-400); WHITE BLOOD COUNT 7.8 10^3/uL (4.3-11.0)
[2022-06-11 07:09] LABS: ALBUMIN 3.6 GM/DL (3.2-4.5); POTASSIUM 3.9 MMOL/L (3.6-5.0)
[2022-06-11 07:10] LABS: CALCIUM 8.8 MG/DL (8.5-10.1)
[2022-06-11 07:12] LABS: TOTAL PROTEIN 5.9 GM/DL (6.4-8.2)
[2022-06-11 07:13] LABS: BILIRUBIN,TOTAL 0.6 MG/DL (0.1-1.0)
[2022-06-11 07:15] LABS: CREATININE SERUM 0.78 MG/DL (0.60-1.30)
[2022-06-11 07:18] LABS: MAGNESIUM 2.1 MG/DL (1.6-2.4)
[2022-06-11] MEDS: AMIODARONE 200 MG (CORDARONE) TAB PO SCH (08:24)
[2022-06-11] MEDS: KCL 20 MEQ TAB (K-DUR) PO SCH (08:26)
[2022-06-11] MEDS: guaiFENesin (MUCINEX) 600 MG TAB PO SCH ×2 (08:27→19:53)
[2022-06-11] MEDS: CLOPIDOGREL 75 MG (PLAVIX) TABLET PO SCH (08:27)
[2022-06-11] MEDS: ASPIRIN E.C. 81 MG (ECOTRIN) TAB PO SCH (08:27)
[2022-06-11] MEDS: FUROSEMIDE 40 MG (LASIX) TAB PO SCH (08:27)
[2022-06-11] MEDS: ISOSORBIDE MONONITRATE 30 MG (IMDUR) TAB PO SCH (08:28)
[2022-06-11] MEDS: methylPREDNISolone 40 MG/ML (Solu-MEDROL) VIAL IV SCH ×2 (08:29→19:54)
--- NOTE | 2022-06-11 09:08 | Cardiology Progress Note ---
Progress Note-Cardiology Events since last exam Date Seen by Provider: Jun 11, 2022 Time Seen by Provider: 09:07 Events since last exam I am following him due to heart failure and coronary artery disease. Last night he started racing some of the sputum that he has been trying to get out for at least several days. He denies chest discomfort. His breathing is about the same as yesterday. He denies palpitations or syncope. His peripheral edema has almost completely resolved. Certain portions of this document may have been dictated utilizing voice recognition technology. Inherent to this technology, typographical and grammatical errors may exist. As much as I am diligent to identify and correct these mistakes, some errors may remain in the document. Vitals Last set of Vitals Signs Vital Signs 06/09/22 06/11/22 06/11/22 04:12 08:27 09:53 Temp 36.0 Pulse 84 Resp 20 B/P (MAP) 148/70 Pulse Ox 96 O2 Delivery High Flow N/C O2 Flow Rate 4.00 FiO2 30 Labs Labs Laboratory Tests 06/11/22 05:32 Exam Vital Signs Vital Signs Date Time Temp Pulse Resp B/P (MAP) Pulse Ox O2 Delivery O2 Flow Rate FiO2 06/11/22 09:53 96 High Flow N/C 4.00 06/11/22 08:27 36.0 84 20 148/70 06/09/22 04:12 30 Physical Exam General: Alert. He gets visibly short of breath while speaking. He is obese. He is wearing oxygen by nasal cannula. Eye: No xanthelasma. HENT: Normocephalic. Neck: Jugular venous pressure does not appear elevated. Respiratory: Lungs have scattered wheezes and upper airway sounds bilaterally. Respirations are non-labored. Breath sounds are equal. Symmetrical chest wall expansion. Cardiovascular: Normal rate. Regular rhythm. Distant S1/S2. No murmur. No gallop. Trace bilateral pretibial edema. Gastrointestinal: Soft. Normal bowel sounds. Skin: Warm. Dry. Neurologic: Alert and oriented to person, place, time. Cranial nerves 3-11 grossly intact. Psychiatric: Cooperative. Appropriate mood & affect. Labs Laboratory Tests Test 06/11/22 05:32 Range/Units White Blood Count 7.8 4.3-11.0 10^3/uL Red Blood Count 3.83 L 4.30-5.52 10^6/uL Hemoglobin 10.9 L 13.3-17.7 g/dL Hematocrit 33 L 40-54 % Mean Corpuscular Volume 87 80-99 fL Mean Corpuscular Hemoglobin 29 25-34 pg Mean Corpuscular Hemoglobin Concent 33 32-36 g/dL Red Cell Distribution Width 16.7 H 10.0-14.5 % Platelet Count 176 130-400 10^3/uL Mean Platelet Volume 10.9 9.0-12.2 fL Immature Granulocyte % (Auto) 3 % Neutrophils (%) (Auto) 92 H 42-75 % Lymphocytes (%) (Auto) 3 L 12-44 % Monocytes (%) (Auto) 2 0-12 % Eosinophils (%) (Auto) 0 0-10 % Basophils (%) (Auto) 0 0-10 % Neutrophils # (Auto) 7.2 1.8-7.8 10^3/uL Lymphocytes # (Auto) 0.3 L 1.0-4.0 10^3/uL Monocytes # (Auto) 0.1 0.0-1.0 10^3/uL Eosinophils # (Auto) 0.0 0.0-0.3 10^3/uL Basophils # (Auto) 0.0 0.0-0.1 10^3/uL Immature Granulocyte # (Auto) 0.2 H 0.0-0.1 10^3/uL Sodium Level 136 135-145 MMOL/L Potassium Level 3.9 3.6-5.0 MMOL/L Chloride Level 100 98-107 MMOL/L Carbon Dioxide Level 24 21-32 MMOL/L Anion Gap 12 5-14 MMOL/L Blood Urea Nitrogen 31 H 7-18 MG/DL Creatinine 0.78 0.60-1.30 MG/DL Estimat Glomerular Filtration Rate 98 BUN/Creatinine Ratio 40 Glucose Level 181 H 70-105 MG/DL Calcium Level 8.8 8.5-10.1 MG/DL Corrected Calcium 9.1 8.5-10.1 MG/DL Magnesium Level 2.1 1.6-2.4 MG/DL Total Bilirubin 0.6 0.1-1.0 MG/DL Aspartate Amino Transf (AST/SGOT) 27 5-34 U/L Alanine Aminotransferase (ALT/SGPT) 39 0-55 U/L Alkaline Phosphatase 60 40-136 U/L Total Protein 5.9 L 6.4-8.2 GM/DL Albumin 3.6 3.2-4.5 GM/DL Diagnosis/Problems Diagnosis/Problems (1) Coronary artery disease with unstable angina pectoris Assessment & Plan: He had a borderline elevated troponin level but I suspect this is the tail end of the non-ST elevation myocardial infarction he suffered last week. He should continue aspirin, clopidogrel, diltiazem, long-acting nitrates, and statin medication. He is not on beta-jelena due to severe underlying pulmonary disease. No additional cardiac testing is indicated at this time. (2) Acute on chronic heart failure with preserved ejection fraction (HFpEF) Status: Acute Assessment & Plan: He may again have some decompensation of his heart failure. He was treated with 2 doses of intravenous Lasix. His breathing and peripheral edema have improved. I resumed his normal oral dose of Lasix. (3) Paroxysmal atrial fibrillation Status: Chronic Assessment & Plan: He has been remaining in sinus rhythm on amiodarone. I do not have him on oral anticoagulation because his initial episode of atrial fibrillation earlier in 2021 was most likely provoked by a pulmonary embolus and has not recurred in several months. I will decrease his amiodarone to 100 mg daily and ultimately, I plan to discontinue this as an outpatient. (4) Ventricular tachycardia Status: Acute Assessment & Plan: This occurred during a previous hospitalization and there have been no signs of recurrence. Continue diltiazem. (5) Pulmonary hypertension Status: Chronic Assessment & Plan: His echocardiogram from earlier this year showed pulmonary hypertension. This is most likely due to his pulmonary disease and heart failure. He should continue with home oxygen. He did also undergo a CT angiogram this admission which showed no evidence of pulmonary embolism. (6) Primary hypertension Status: Chronic Assessment & Plan: Continue diltiazem. (7) Mixed hyperlipidemia Status: Chronic Assessment & Plan: Continue statin medication. (8) Acute on chronic respiratory failure with hypoxemia Status: Acute Assessment & Plan: Most likely due to his underlying pulmonary disease with some superimposed heart failure and possibly residual pneumonia. I think he would benefit from having a CPAP or BiPAP at home prior to discharge. CAROL LEWIS JR, MD Jun 11, 2022 09:08
[2022-06-11] MEDS: SENNA W/DOCUSATE (SENOKOT S) TABLET PO SCH ×2 (10:24→19:53)
[2022-06-11] MEDS: polyethylene glycoL POWDER 17 GM (MIRALAX) PACK PO SCH ×2 (10:24→19:54)
[2022-06-11] MEDS: ENOXAPARIN 40 MG/0.4 ML (LOVENOX) SYR SC SCH (10:24)
--- NOTE | 2022-06-11 10:53 | Progress Note - Hospitalist ---
CHANCEMEL 06/11/22 1053: Subjective HPI/CC On Admission CC: Respiratory failure with volume overload HPI: This is a 66yoWM well known to me from multiple hospital stays for the same issue due to severe COPD and continued smoking until 4 weeks prior to last admit who presented to the ER with dyspnea after he was just DC after cardiac cath revealing mild CAD by Dr Pugh. Patient was given IV Lasix. O2 is at 5L/min. Patient did use biPAP last night and is now doing better and has received IV Lasix with good results. Subjective/Events-last exam Audie Gonzalze is a 65y/o M who is being seen for follow up due to acute on chronic respiratory failure. He reports that his cough has become more productive since last night. States that his breathing does feel better this morning. Says that his SOB is about the same as yesterday. His appetite is good. He has had 2 BMs in the last 24 hours he reported. Review of Systems General: No Chills, No Night Sweats HEENT: No Head Aches, No Visual Changes Pulmonary: Dyspnea, Cough Cardiovascular: No: Chest Pain, Palpitations Gastrointestinal: No: Nausea, Vomiting, Abdominal Pain Genitourinary: No Dysuria, No Hematuria Musculoskeletal: back pain, leg pain Neurological: No: Weakness, Numbness Focused Exam Lactate Level 06/08/22 23:34: Lactic Acid Level 1.33 Objective Exam Vital Signs Vital Signs Date Time Temp Pulse Resp B/P (MAP) Pulse Ox O2 Delivery O2 Flow Rate FiO2 06/11/22 09:53 96 High Flow N/C 4.00 06/11/22 08:27 36.0 84 20 148/70 06/09/22 04:12 30 Capillary Refill : Less Than 3 Seconds General Appearance: No Apparent Distress, WD/WN Neck: Non Tender, Supple Respiratory: No Respiratory Distress, Wheezing (diffuse) Cardiovascular: Regular Rate, Rhythm, No Murmur, Normal Peripheral Pulses Gastrointestinal: Non Tender, Soft Extremity: Non Tender, No Calf Tenderness Neurologic/Psychiatric: Alert, Oriented x3, Normal Mood/Affect Skin: Normal Color, Warm/Dry Lymphatic: No Adenopathy Results/Procedures Lab Laboratory Tests 06/11/22 05:32 Patient resulted labs reviewed. Assessment/Plan Assessment and Plan Assess & Plan/Chief Complaint Assessment: Acute on chronic respiratory failure BiPAP dependent Severe COPD/Emphysema PAF CAD mild disease in recent cath on Friday Dr Pugh Recent smoking cessation 4 weeks ago Previous respiratory failure with long ventilator course Anxiety RA Polyarthrlagia Plan: Supplemental O2 BiPAP as needed Continue meropenem Solumedrol 80mg BID Oral lasix 40mg, on supplemental K+ Cardiology following Continue PT and RT Consult pulmonology 4th floor SHERRI MOSLEY DO 06/11/222055: Subjective HPI/CC On Admission Date Seen by Provider: Jun 11, 2022 Time Seen by Provider: 10:00 Subjective/Events-last exam Pt is doing well Pulmonology evaluation ordered Productive cough which is good Bowels are moving Overall doing very well Supervisory-Addendum Brief Verification & Attestation Participated in pt care: history, MDM, physical Personally performed: exam, history, MDM, supervision of care Care discussed with: Medical Student Procedures: n/a Results interpretation: Verified all documentation Verification and Attestation of Medical Student E/M Service A medical student performed and documented this service in my presence. I reviewed and verified all information documented by the medical student and made modifications to such information, when appropriate. I personally performed the physical exam and medical decision making. Sherri Mosley, Jun 11, 2022,20:55 MEL FLETCHER Jun 11, 2022 10:53 SHERRI MOSLEY DO Jun 11, 2022 20:56
--- NOTE | 2022-06-11 11:00 | Occupational Ther Daily Note ---
OT Current Status-Daily Note Subjective Pt awake in bed with nrsg in room. Pt agrees to therapy. Pt c/o L UE weakness and pain. Pt required encouragement to participate in skilled therapy. present in room. Mental Status/Objective Patient Orientation: Person, Place, Time, Situation ADL-Treatment Pt completed 4 B UE exercises using light resistance theraband 3 sets of 10 reps to increase strength for daily functional tasks. Skilled instruction given for proper technique. Pt required 3 verbal cues throughout each set to continue with proper technique. Pt fatigued toward end of sets and needed modification to finish. Call light/phone in reach. Nrsg in room. All needs met. Therapy Code Descriptions/Definitions Functional [place] Measure: 0=Not Assessed/NA 4=Minimal Assistance 1=Total Assistance 5=Supervision or Setup 2=Maximal Assistance 6=Modified [place] 3=Moderate Assistance 7=Complete IndependenceSCALE: Activities may be completed with or without assistive devices. 6-Vbikjipwbu-jtrqocz completes the activity by him/herself with no assistance from a helper. 5-Set-up or Clean-up Assistance-helper sets up or cleans up; patient completes activity. [place] assists only prior to or following the activity. 4-Supervision or Touching Assistance-helper provides verbal cues and/or touching/steadying and/or contact guard assistance as patient completes activity. Assistance may be provided throughout the activity or intermittently. 3-Partial/Moderate Assistance-helper does LESS THAN HALF the effort. [place] lifts, holds or supports trunk or limbs, but provides less than half the effort. 2-Substantial/Maximal Assistance-helper does MORE THAN HALF the effort. [place] lifts or holds trunk or limbs and provides more than half the effort. 9-Jrfmvcruq-mdsebv does ALL the effort. Patient does none of the effort to complete the activity. Or, the assistance of 2 or more helpers is required for the patient to complete the activity. If activity was not attempted, code reason: 7-Patient Refused. 9-Not Applicable-not attempted and the patient did not perform the activity be fore the current illness, exacerbation or injury. 10-Not Attempted due to Environmental Limitations-(lack of equipment, weather restraints, etc.). 88-Not Attempted due to Medical Conditions or Safety Concerns. OT Crystal Grower Goals Crystal Grower Goals Time Frame: Jun 19, 2022 Eating (QC): 6 Oral Hygiene (QC): 5 Toileting Hygiene (QC): 4 Shower/Bathe Self (QC): 4 Upper Body Dressing (QC): 5 Lower Body Dressing (QC): 5 On/Off Footwear (QC): 5 1=Demonstrate adherence to instructed precautions during ADL tasks. 2=Patient will verbalize/demonstrate understanding of assistive devices/modifications for ADL. 3=Patient will improve strength/tolerance for activity to enable patient to perform ADL's. OT Education/Plan Problem List/Assessment Assessment: Decreased Activ Tolerance, Decreased UE Strength Discharge Recommendations Plan/Recommendations: Continue POC Treatment Plan/Plan of Care Patient would benefit from OT for education, treatment and training to promote independence in ADL's, mobility, safety and/or upper extremity function for ADL's. Plan of Care: ADL Retraining, Functional Mobility, Group Exercise/Act as Ind, UE Funct Exercise/Act Treatment Duration: Jun 19, 2022 Frequency: 3 times per week (3-5x/week) Estimated Hrs Per Day: .25 hour per day Agreement: Yes Rehab Potential: Fair Time/GCodes Start Time: 10:23 Stop Time: 10:31 Total Time Billed (hr/min): 8 Billed Treatment Time 1 visit-EX 1 (8 min) TI OCAMPO Jun 11, 2022 11:00
--- NOTE | 2022-06-11 11:23 | Tele-ICU Progress Note ---
Subjective Date Seen by a Provider: Jun 11, 2022 Time Seen by a Provider: 11:19 Subjective/Events-last exam PULMONARY CONSULT ( requested by PCP on patient with dyspnea. hy[poxia , copd , pna ) Hospital course: Long admission January - february 2022 with CHF and AECPD/ PNA , requaring intubation for 7 days , then NIPPV and VT Admission 05/26-06/06 for CHF exacerbation, COPD exacerbation. Returned for eval 06/07 after rolling off the couch and injuring ribs, but found to have troponin elevation. Cath done 06/07 with insignificant disease. Thought to be type II MN secondary to severe lung disease. Discharged earlier today 06/09- 66M with COPD requiring multiple prior intubations (most recent 01/2022), Stage 3 diastolic dysfunction with preserved EF, afib, VT, ongoing 1 ppd smoker, admitted with COPD exacerbation. Started on steroids , recived 12 doses IV lasix Now on NC 4 l , c/o hard cough with thick sputum . c/o pain AAO at bedside A/P Acute resp failure ( on chronic ) - IMPROVING - CTA 06/09 - NO PE - BIPAP used in ER - off now, on 4 l - doing well on 6 l o2 now - moniror - cont monitor volume status - given sever pulm HTN to avoid fluis shift and VO , diuresis as per cards AECOPD -given solumedrol - will decrease dose given 4 L o2 and no wheezign - cont nebs , cont IS and flatter valve - add mucomist - ? will re-assess effect - add guafenesin COPD -- CT 01/2022 with Severe centrilobular emphysema - need PFT latter , for now should consider to add LAMA - LABA ( preferably in one inhaler - SW = please to check with insurance - to wean off steroids Po as out pt , consider to add ICS PNA, suspected -Merrem restarted in ER - TODAY day #5 - will recheck cxt 2 view, repeat sputum cx - CT 01/2022 groundglass in the left upper lobe- very similar appearance 05/2022 - sputum 02/17/22 - usual resp ravi , but at risk for colonization given few recent ABX and steroid courses and other unusual pathogens ( will check for fungal sputum , doubt PCP since on 4 l only ) Blood cx 06/02/22- [place] turbata - THIS ORGANISM IS AN ACTINOMYCETE- -blood cx 06/10 pending Severe pulm HTN on echo 01/2022 RVSP 70 mmHg with chronically elevated BNP -probably from COPD ( PE was r/o x2 ) -may be also a component of ASHLEIGH-should be tested, but will discuss with patient if he will be willing to use CPAP nocturnal on d/c Recent nonSTEMI type II - sypply/demad - cath - no occlusions afib: currently NSR -as per cards - no AC discusse with patient pain control , needs to ambulat will need pulm rehab and pft as out pt considering NIPPBV at night VTE Prophylaxis: promise 40 Stress Ulcer Prophylaxis: PPI Sepsis Event Evaluation Height, Weight, BMI Height: '" Weight: lbs. oz. kg; 33.52 BMI Method: Focused Exam Lactate Level 06/08/22 23:34: Lactic Acid Level 1.33 Exam Exam Patient acknowledged, consented, and participated in this virtual visit which was conducted using real time audio/video Vital Signs Date Time Temp Pulse Resp B/P (MAP) Pulse Ox O2 Delivery O2 Flow Rate FiO2 06/11/22 09:53 96 High Flow N/C 4.00 06/11/22 08:27 36.0 84 20 148/70 98 Nasal Cannula 4.00 06/11/22 08:00 High Flow N/C 4.00 06/11/22 07:27 96 High Flow N/C 4.00 06/11/22 06:58 67 06/11/22 03:11 36.4 72 20 112/68 95 High Flow N/C 4.00 06/11/22 02:57 96 High Flow N/C 4.00 06/11/22 01:00 73 06/10/22 23:03 36.9 86 20 156/79 95 High Flow N/C 4.00 06/10/22 21:00 94 High Flow N/C 4.00 06/10/22 20:00 36.7 86 20 127/59 96 High Flow N/C 4.00 06/10/22 19:50 High Flow N/C 4.00 06/10/22 19:00 88 06/10/22 18:37 95 High Flow N/C 4.00 06/10/22 16:00 36.9 79 20 134/76 96 High Flow N/C 4.00 06/10/22 15:09 94 High Flow N/C 4.00 06/10/22 14:26 High Flow N/C 4.00 06/10/22 13:00 82 06/10/22 12:00 79 9 97 High Flow N/C 4.00 I & O 06/11/22 07:00 Intake Total 1200 ml Output Total 1825 ml Balance -625 ml Height & Weight Height: '" Weight: lbs. oz. kg; 33.52 BMI Method: General Appearance: No Apparent Distress, WD/WN HEENT: PERRL/EOMI, Normal ENT Inspection, Pharynx Normal, Moist Mucous Membranes Neck: Non Tender, Supple Respiratory: No Respiratory Distress, Wheezing (diffuse) Cardiovascular: Regular Rate, Rhythm, No Murmur, Normal Peripheral Pulses Capillary Refill: Less Than 3 Seconds Gastrointestinal: normal bowel sounds, non tender, soft, other (ROTUND) Extremity: Non Tender, No Calf Tenderness Neurologic/Psychiatric: Alert, Oriented x3, Normal Mood/Affect Skin: Normal Color, Warm/Dry Lymphatic: No Adenopathy Results Lab Laboratory Tests 06/10/22 04:50 06/11/22 05:32 Assessment/Plan Assessment/Plan 1 IGNACIO ALDIRCH MD Jun 11, 2022 11:23
--- NOTE | 2022-06-11 11:33 | Physical Therapy Progress Note ---
Therapy Progress Note Patient declined stating, "I'm up in my room by myself. I feel so much better today." Spouse present and confirms. RN notified. Will attempt tomorrow a.m. 1 ref DOUGLAS WILEY PT Jun 11, 2022 11:33
[2022-06-11] MEDS: aCETylcysteine 20% (MUCOMYST) 4 ML SOLN VIAL INH SCH ×2 (15:07→22:17)
[2022-06-11] MEDS: PANTOPRAZOLE 40 MG (PROTONIX) TAB PO SCH (19:53)
[2022-06-11] MEDS: MAGNESIUM OXIDE (MAG-OX)400 MG TAB PO SCH (19:53)
[2022-06-11] MEDS: ALPRAZolam 0.25 MG (XANAX) TAB PO PRN (19:56)
[2022-06-11] MEDS: MELATONIN 3 MG TABLET PO PRN (19:56)
[2022-06-12] MEDS: MEROPENEM 500 MG/NS 100 ML IVPB IV SCH ×8 (02:23→19:56)
[2022-06-12] MEDS: RT-ALBUTEROL/IPRATROPIUM 3 ML (DUONEB) VIAL INH SCH ×6 (02:39→21:59)
[2022-06-12] MEDS: aCETylcysteine 20% (MUCOMYST) 4 ML SOLN VIAL INH SCH ×2 (02:39→06:57)
[2022-06-12 04:45] LABS: BASOPHILS % (AUTO) 0 % (0-10); EOSINOPHILS % (AUTO) 0 % (0-10); HEMATOCRIT 32 % (40-54); HEMOGLOBIN 10.2 g/dL (13.3-17.7); LYMPHOCYTES # (AUTO) 0.2 10^3/uL (1.0-4.0); LYMPHOCYTES % (AUTO) 3 % (12-44); MEAN CORPUSCULAR HEMOGLOBIN 28 pg (25-34); MEAN CORPUSCULAR HGB CONC 32 g/dL (32-36); MEAN CORPUSCULAR VOLUME 87 fL (80-99); MEAN PLATELET VOLUME 10.4 fL (9.0-12.2); MONOCYTES # (AUTO) 0.4 10^3/uL (0.0-1.0); MONOCYTES % (AUTO) 5 % (0-12); NEUTROPHILS # (AUTO) 6.2 10^3/uL (1.8-7.8); NEUTROPHILS % (AUTO) 88 % (42-75); PLATELET COUNT 139 10^3/uL (130-400)
[2022-06-12 05:16] LABS: ALBUMIN 3.5 GM/DL (3.2-4.5)
[2022-06-12 05:17] LABS: CALCIUM 8.9 MG/DL (8.5-10.1)
[2022-06-12 05:18] LABS: TOTAL PROTEIN 5.7 GM/DL (6.4-8.2)
[2022-06-12 05:20] LABS: BILIRUBIN,TOTAL 0.5 MG/DL (0.1-1.0)
[2022-06-12 05:21] LABS: PHOSPHORUS 3.5 MG/DL (2.3-4.7)
[2022-06-12 05:22] LABS: CREATININE SERUM 0.85 MG/DL (0.60-1.30)
[2022-06-12 05:24] LABS: MAGNESIUM 2.2 MG/DL (1.6-2.4)
[2022-06-12] MEDS: HYDROmorphone 2 MG/ML VIAL (DILAUDID) IV PRN ×2 (06:24→08:31)
--- NOTE | 2022-06-12 08:01 | Diagnostic Imaging Report ---
CLINICAL INDICATION: Patient with pneumonia. EXAM: Chest x-ray PA and lateral views. COMPARISON: Portable chest x-ray dated 06/09/2022. FINDINGS: Lungs/pleura: There is slight improved aeration of the left lung base. There is curvilinear opacities in both lung bases. There is development of mild patchy airspace opacities involving the right lower lung field region. There is no pneumothorax. There is no pleural effusion. Mediastinum: Unremarkable. Pulmonary vasculature: Unremarkable. Heart: Unremarkable. Bones/extrathoracic soft tissue: Unremarkable. IMPRESSION: 1: Interval development of mild patchy airspace opacities involving the right lower lung field which may represent atelectasis versus infiltrate. 2: There is interval improved aeration of the left lower lung field with residual curvilinear opacities. Dictated by: Dictated on workstation # [id number]
[2022-06-12] MEDS: methylPREDNISolone 40 MG/ML (Solu-MEDROL) VIAL IV SCH ×2 (08:32→19:56)
[2022-06-12] MEDS: ENOXAPARIN 40 MG/0.4 ML (LOVENOX) SYR SC SCH (08:32)
[2022-06-12] MEDS: CLOPIDOGREL 75 MG (PLAVIX) TABLET PO SCH (08:32)
[2022-06-12] MEDS: AMIODARONE 200 MG (CORDARONE) TAB PO SCH (08:32)
[2022-06-12] MEDS: SENNA W/DOCUSATE (SENOKOT S) TABLET PO SCH ×2 (08:33→19:55)
[2022-06-12] MEDS: ASPIRIN E.C. 81 MG (ECOTRIN) TAB PO SCH (08:33)
[2022-06-12] MEDS: polyethylene glycoL POWDER 17 GM (MIRALAX) PACK PO SCH ×2 (08:33→19:56)
[2022-06-12] MEDS: KCL 20 MEQ TAB (K-DUR) PO SCH (08:33)
[2022-06-12] MEDS: guaiFENesin (MUCINEX) 600 MG TAB PO SCH ×2 (08:33→19:55)
[2022-06-12] MEDS: FUROSEMIDE 40 MG (LASIX) TAB PO SCH (08:33)
[2022-06-12] MEDS: ISOSORBIDE MONONITRATE 30 MG (IMDUR) TAB PO SCH (08:39)
--- NOTE | 2022-06-12 09:53 | Cardiology Progress Note ---
Progress Note-Cardiology Events since last exam Date Seen by Provider: Jun 12, 2022 Time Seen by Provider: 09:51 Events since last exam I am following him due to heart failure and coronary artery disease. Early this morning he woke up very short of breath. He called the nurse and was given 1 nebulizer and a Xanax and his breathing improved. He was not placed on CPAP or BiPAP. This morning he feels better. He denies chest pain, palpitations, or syncope. His peripheral edema has resolved. Certain portions of this document may have been dictated utilizing voice recognition technology. Inherent to this technology, typographical and grammatical errors may exist. As much as I am diligent to identify and correct these mistakes, some errors may remain in the document. Vitals Last set of Vitals Signs Vital Signs 06/09/22 06/12/22 04:12 16:06 Temp 36.6 Pulse 77 Resp 20 B/P (MAP) 136/69 Pulse Ox 97 O2 Delivery Nasal Cannula O2 Flow Rate 4.00 FiO2 30 Labs Labs Laboratory Tests 06/12/22 04:30 Exam Vital Signs Vital Signs Date Time Temp Pulse Resp B/P (MAP) Pulse Ox O2 Delivery O2 Flow Rate FiO2 06/12/22 16:06 36.6 77 20 136/69 97 Nasal Cannula 4.00 06/09/22 04:12 30 Physical Exam General: Alert. He gets visibly short of breath while speaking. He is obese. He is wearing oxygen by nasal cannula. Eye: No xanthelasma. HENT: Normocephalic. Neck: Jugular venous pressure does not appear elevated. Respiratory: Lungs have scattered wheezes and upper airway sounds bilaterally. Respirations are non-labored. Breath sounds are equal. Symmetrical chest wall expansion. Cardiovascular: Normal rate. Regular rhythm. Distant S1/S2. No murmur. No gallop. No edema. Gastrointestinal: Soft. Normal bowel sounds. Skin: Warm. Dry. Neurologic: Alert and oriented to person, place, time. Cranial nerves 3-11 grossly intact. Psychiatric: Cooperative. Appropriate mood & affect. Labs Laboratory Tests Test 06/12/22 04:30 06/12/22 15:35 Range/Units White Blood Count 7.0 4.3-11.0 10^3/uL Red Blood Count 3.61 L 4.30-5.52 10^6/uL Hemoglobin 10.2 L 13.3-17.7 g/dL Hematocrit 32 L 40-54 % Mean Corpuscular Volume 87 80-99 fL Mean Corpuscular Hemoglobin 28 25-34 pg Mean Corpuscular Hemoglobin Concent 32 32-36 g/dL Red Cell Distribution Width 16.7 H 10.0-14.5 % Platelet Count 139 130-400 10^3/uL Mean Platelet Volume 10.4 9.0-12.2 fL Immature Granulocyte % (Auto) 3 % Neutrophils (%) (Auto) 88 H 42-75 % Lymphocytes (%) (Auto) 3 L 12-44 % Monocytes (%) (Auto) 5 0-12 % Eosinophils (%) (Auto) 0 0-10 % Basophils (%) (Auto) 0 0-10 % Neutrophils # (Auto) 6.2 1.8-7.8 10^3/uL Lymphocytes # (Auto) 0.2 L 1.0-4.0 10^3/uL Monocytes # (Auto) 0.4 0.0-1.0 10^3/uL Eosinophils # (Auto) 0.0 0.0-0.3 10^3/uL Basophils # (Auto) 0.0 0.0-0.1 10^3/uL Immature Granulocyte # (Auto) 0.2 H 0.0-0.1 10^3/uL Sodium Level 138 135-145 MMOL/L Potassium Level 4.0 3.6-5.0 MMOL/L Chloride Level 100 98-107 MMOL/L Carbon Dioxide Level 27 21-32 MMOL/L Anion Gap 11 5-14 MMOL/L Blood Urea Nitrogen 35 H 7-18 MG/DL Creatinine 0.85 0.60-1.30 MG/DL Estimat Glomerular Filtration Rate 96 BUN/Creatinine Ratio 41 Glucose Level 159 H 70-105 MG/DL Calcium Level 8.9 8.5-10.1 MG/DL Corrected Calcium 9.3 8.5-10.1 MG/DL Phosphorus Level 3.5 2.3-4.7 MG/DL Magnesium Level 2.2 1.6-2.4 MG/DL Total Bilirubin 0.5 0.1-1.0 MG/DL Aspartate Amino Transf (AST/SGOT) 21 5-34 U/L Alanine Aminotransferase (ALT/SGPT) 32 0-55 U/L Alkaline Phosphatase 53 40-136 U/L Total Protein 5.7 L 6.4-8.2 GM/DL Albumin 3.5 3.2-4.5 GM/DL Blood Gas Puncture Site R RADIAL Blood Gas Patient Temperature 36.6 Arterial Blood pH 7.45 H 7.37-7.43 Arterial Blood Partial Pressure CO2 42 35-45 MMHG Arterial Blood Partial Pressure O2 72 L 79-93 MMHG Arterial Blood HCO3 29 H 23-27 MMOL/L Arterial Blood Total CO2 30.0 21.0-31.0 MMOL/L Arterial Blood Oxygen Saturation 96 94-100 % Arterial Blood Base Excess 4.8 H -2.5-2.5 MMOL/L Jarad Test YES-POS Blood Gas Ventilator Setting NO Blood Gas Inspired Oxygen 4 L Diagnosis/Problems Diagnosis/Problems (1) Coronary artery disease with unstable angina pectoris Assessment & Plan: He had a borderline elevated troponin level at the time of admission but I suspect this is the tail end of the non-ST elevation myocardial infarction he suffered last week. He should continue aspirin, clopidogrel, diltiazem, long-acting nitrates, and statin medication. He is not on beta- jelena due to severe underlying pulmonary disease. No additional cardiac testing is indicated at this time. (2) Acute on chronic heart failure with preserved ejection fraction (HFpEF) Status: Acute Assessment & Plan: He may again have some decompensation of his heart failure at the time of this admission. He was treated with 2 doses of intravenous Lasix. His breathing and peripheral edema have improved. I resumed his normal oral dose of Lasix. (3) Paroxysmal atrial fibrillation Status: Chronic Assessment & Plan: He has been remaining in sinus rhythm on amiodarone. I do not have him on oral anticoagulation because his initial episode of atrial fibrillation earlier in 2021 was most likely provoked by a pulmonary embolus and has not recurred in several months. I decreased his amiodarone to 100 mg daily on 06/11 and ultimately, I plan to discontinue this as an outpatient. (4) Ventricular tachycardia Status: Acute Assessment & Plan: This occurred during a previous hospitalization and there have been no signs of recurrence. Continue diltiazem. (5) Pulmonary hypertension Status: Chronic Assessment & Plan: His echocardiogram from earlier this year showed pulmonary hypertension. This is most likely due to his pulmonary disease and heart failure. He should continue with home oxygen. He did also undergo a CT angiogram this admission which showed no evidence of pulmonary embolism. (6) Primary hypertension Status: Chronic Assessment & Plan: His blood pressure has been reasonably well controlled during this admission. Continue diltiazem. (7) Mixed hyperlipidemia Status: Chronic Assessment & Plan: Continue statin medication. (8) Acute on chronic respiratory failure with hypoxemia Status: Acute Assessment & Plan: Most likely due to his underlying pulmonary disease with some superimposed heart failure and possibly residual pneumonia. I think he would benefit from having a CPAP or BiPAP at home prior to discharge. He also wears home oxygen 12/05. CAROL LEWIS JR, MD Jun 12, 2022 09:53
--- NOTE | 2022-06-12 10:52 | Physical Therapy Daily Note ---
PT Daily Note-Current Subjective Pt reports he doesn't need to go for a walk. He's been up since 3 am with bowel issues and has been walking (I) back and forth to the restroom. Transfers SCALE: Activities may be completed with or without assistive devices. 4-Hvwhihjemn-qeeybfs completes the activity by him/herself with no assistance from a helper. 5-Set-up or Clean-up Assistance-helper sets up or cleans up; patient completes activity. [place] assists only prior to or following the activity. 4-Supervision or Touching Assistance-helper provides verbal cues and/or touching/steadying and/or contact guard assistance as patient completes activity. Assistance may be provided throughout the activity or intermittently. 3-Partial/Moderate Assistance-helper does LESS THAN HALF the effort. [place] lifts, holds or supports trunk or limbs, but provides less than half the effort. 2-Substantial/Maximal Assistance-helper does MORE THAN HALF the effort. [place] lifts or holds trunk or limbs and provides more than half the effort. 6-Mfxddwosl-jzxdgr does ALL the effort. Patient does none of the effort to complete the activity. Or, the assistance of 2 or more helpers is required for the patient to complete the activity. If activity was not attempted, code reason: 7-Patient Refused. 9-Not Applicable-not attempted and the patient did not perform the activity before the current illness, exacerbation or injury. 10-Not Attempted due to Environmental Limitations-(lack of equipment, weather restraints, etc.). 88-Not Attempted due to Medical Conditions or Safety Concerns. Pt demonstrated supine to sit at EOB and standing balance with no need for assist. Had patient perform standing bedside wt shift and alternating foot lifts. Pt and encouraged to continue frequent out of bed activity but to have LEs elevated when possible due to LE swelling. Assessment Pt steady on his feet and has shown good to fair short distance mobility. Continue to encourage long distance ambulation in hallway. If patient can demonstrate safety in this area, he is ready for d/c from skilled PT services. PT Skilled Nursing Goals Supervisory Examiner Goals PT Supervisory Examiner Goals Time Frame: Jun 22, 2022 Roll Left & Right (QC): 6 Sit to Lying (QC): 6 Lying-Sitting on Side/Bed(QC): 6 Sit to Stand (QC): 6 Chair/Vxs-ud-Pzqps Xfer(QC): 6 Toilet Transfer (QC): 6 Walk 10 feet (QC): 5 Walk 50ft with 2 Turns (QC): 5 Walk 150 ft (QC): 5 PT Plan Treatment/Plan Treatment Plan: Continue Plan of Care Treatment Plan: Education, Functional Activity Yvette, Functional Strength, Gait, Safety, Therapeutic Exercise, Transfers Treatment Duration: Jun 22, 2022 Frequency: 6 times per week Estimated Hrs Per Day: .25 hour per day Time/GCodes Time In: 1020 Time Out: 1030 Total Billed Treatment Time: 10 Total Billed Treatment visit, FA 10 min CAMRON GUNN PT Jun 12, 2022 10:52
--- NOTE | 2022-06-12 11:24 | Progress Note - Hospitalist ---
MEL FLETCHER 06/12/22 1124: Subjective HPI/CC On Admission Date Seen by Provider: Jun 12, 2022 CC: Respiratory failure with volume overload HPI: This is a 66yoWM well known to me from multiple hospital stays for the same issue due to severe COPD and continued smoking until 4 weeks prior to last admit who presented to the ER with dyspnea after he was just DC after cardiac cath revealing mild CAD by Dr Pugh. Patient was given IV Lasix. O2 is at 5L/min. Patient did use biPAP last night and is now doing better and has received IV Lasix with good results. Subjective/Events-last exam Audie Gonzalez is a 66y/o M who is being seen for follow up due to acute on chronic respiratory failure. Pt reports that around 3am he woke up due to troubles breathing. Says that he was having increased SOB. Feels better this morning but states that his breathing is worse today that it was yesterday. Productive cough still present. Was have to have a BM today. Review of Systems General: No Chills, No Night Sweats HEENT: No Head Aches, No Visual Changes Pulmonary: Dyspnea, Cough Cardiovascular: No: Chest Pain, Palpitations Gastrointestinal: No: Nausea, Vomiting, Abdominal Pain Genitourinary: No Dysuria, No Hematuria Musculoskeletal: back pain; No: neck pain Neurological: No: Weakness, Numbness Objective Exam Vital Signs Vital Signs Date Time Temp Pulse Resp B/P (MAP) Pulse Ox O2 Delivery O2 Flow Rate FiO2 06/12/22 08:00 36.8 80 20 145/66 93 Nasal Cannula 4.00 06/09/22 04:12 30 Capillary Refill : Less Than 3 Seconds General Appearance: No Apparent Distress, WD/WN Neck: Non Tender, Supple Respiratory: No Respiratory Distress, Rales (diffuse), Wheezing (diffuse) Gastrointestinal: Non Tender, Soft Extremity: Non Tender, Pedal Edema (worse in right foot 2+/4) Neurologic/Psychiatric: Alert, Oriented x3, Normal Mood/Affect Skin: Normal Color, Warm/Dry Lymphatic: No Adenopathy Results/Procedures Lab Laboratory Tests 06/12/22 04:30 Patient resulted labs reviewed. Assessment/Plan Assessment and Plan Assess & Plan/Chief Complaint Assessment: Acute on chronic respiratory failure BiPAP dependent Severe COPD/Emphysema PAF CAD mild disease in recent cath on Friday Dr Pugh Recent smoking cessation 4 weeks ago Previous respiratory failure with long ventilator course Anxiety RA Polyarthrlagia Plan: Supplemental O2 BiPAP as needed Continue meropenem Solumedrol 40mg BID Oral lasix 40mg, on supplemental K+ Cardiology following Continue PT and RT Pulmonology consulted 4th floor Discussed with him his future options. Talked about the possibility of hospice care vs. [facility] placement vs. returning home. He asked about getting a BiPAP machine at home but he does not meet criteria. Pt is reluctant to be discharged because "he knows he will if he gets sent home and does not have a BiPAP". Reinforced to him that he does not meet criteria. Offered social work to come and talk with him about his options. Pt and agreed to that and stated that they wanted to have some time to talk about it together before making a decision. 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 He thinks he will pass away if he leaves the hospital which I think is absolutely correct baby formula worker did meet with him and they will have hospice meeting at 1300 today Assessment/Plan Assessment and Plan Assess & Plan/Chief Complaint Recommended hospice but patient declined after meeting with informational jessica stiles Appreciate pulmonology help My opinion is end stage COPD Supervisory-Addendum Brief Verification & Attestation Participated in pt care: history, MDM, physical Personally performed: exam, history, MDM, supervision of care Care discussed with: Medical Student Procedures: n/a Results interpretation: Verified all documentation Verification and Attestation of Medical Student E/M Service A medical student performed and documented this service in my presence. I reviewed and verified all information documented by the medical student and made modifications to such information, when appropriate. I personally performed the physical exam and medical decision making. Curtis Mosley, Jun 12, 2022,20:17 MEL FLETCHER Jun 12, 2022 11:24 CURTIS MOSLEY DO Jun 12, 2022 20:17
--- NOTE | 2022-06-12 11:55 | Pulmonary Progress Note ---
Subjective Date Seen by a Provider: Jun 12, 2022 Time Seen by a Provider: 11:49 Subjective/Events-last exam Hospital course: Long admission January - february 2022 with CHF and AECPD/ PNA , requiring intubation for 7 days , then NIPPV and VT Admission 05/26-06/06 for CHF exacerbation, COPD exacerbation. Returned for eval 06/07 after rolling off the couch and injuring ribs, but found to have troponin elevation. Cath done 06/07 with insignificant disease. Thought to be type II [place] secondary to severe lung disease. Discharged earlier today 06/09- 66M with COPD requiring multiple prior intubations (most recent 01/2022), Stage 3 diastolic dysfunction with preserved EF, ongoing 1 ppd smoker, admitted with COPD exacerbation. Started on steroids , received 12 doses IV lasix Now on NC 4L , c/o hard cough with thick sputum . c/o pain " all over " - same AAO afebrile i/o - oral intake 2 L at bedside reporting event last night with SOB at night otherwise today breathing is same , mucomist not helping m mucinex does help A/P Acute resp failure ( on chronic ) - IMPROVING - CTA 06/09 - NO PE - BIPAP used in ER - off now, on 4 l - doing well on 64 l o2 now - monitor - cont monitor volume status - given severe pulm HTN to avoid fluid shift and VO , diuresis as per cards ( of note ,patients PO intake reported 2l in 24 h with positive volume status AECOPD -given solumedrol - will decrease dose AGAIN given 4 L o2 and no wheezing - cont nebs , cont IS and flatter valve - add mucomist - ? will re-assess effect - add guafenesin COPD -- CT 01/2022 with Severe centrilobular emphysema - need PFT latter , for now should consider to add LAMA - LABA ( preferably in one inhaler - SW = please to check with insurance - to wean off steroids Po as out pt , consider to add ICS PNA, suspected -Merrem restarted in ER - TODAY day #5 - will recheck cxt 2 view, repeat sputum cx - CT 01/2022 groundless in the left upper lobe- very similar appearance 05/2022 - sputum 02/17/22 - usual resp ravi , but at risk for colonization given few recent ABX and steroid courses and other unusual pathogens ( will check for fungal sputum , doubt PCP since on 4 l only ) - recom STOP ABX TODAY 06/12 Blood cx 06/02/22- Oersjohnathania turbata - THIS ORGANISM IS AN ACTINOMYCETE- -blood cx 05/21o and 21- prelim negative Severe pulm HTN on echo 01/2022 RVSP 70 mmHg with chronically elevated BNP -probably from COPD ( PE was r/o x2 ) - ADVICE TO RECHECK WHEN IS NOT IN VOLUME OVERLADED STATE -may be also a component of ASHLEIGH-should be tested, but will discuss with patient if he will be willing to use CPAP nocturnal on d/c Patient might benefit from NIPPV - will check abg to check baseline 52 -will try BIPAP tonight - if patient will tolerate it well , like it and not willing to go with hospice route - will need to regroup discussed with Sw service Recent non STEMI type II - supply/demand - cath - no occlusions afib: currently NSR -as per cards - no AC discussed with patient pain control , needs to ambulate will need pulm rehab and pft as out pt considering NIPPBV at night VTE Prophylaxis: promise 40 Stress Ulcer Prophylaxis: PPI Sepsis Event Evaluation Height, Weight, BMI Height: '" Weight: lbs. oz. kg; 33.60 BMI Method: Exam Exam Patient acknowledged, consented, and participated in this virtual visit which was conducted using real time audio/video Vital Signs Date Time Temp Pulse Resp B/P (MAP) Pulse Ox O2 Delivery O2 Flow Rate FiO2 06/12/22 11:28 95 High Flow N/C 4.00 06/12/22 08:00 36.8 80 20 145/66 93 Nasal Cannula 4.00 06/12/22 07:36 High Flow N/C 4.00 06/12/22 07:01 77 06/12/22 06:59 98 High Flow N/C 6.00 06/12/22 03:22 36.4 82 22 128/71 97 Nasal Cannula 6.00 06/12/22 02:40 97 6.00 06/12/22 00:58 74 06/11/22 23:08 36.7 87 20 118/59 95 Nasal Cannula 4.00 06/11/22 22:21 96 High Flow N/C 4.00 06/11/22 22:17 96 High Flow N/C 4.00 06/11/22 20:05 High Flow N/C 4.00 06/11/22 19:50 88 06/11/22 19:05 36.3 88 20 136/71 95 Nasal Cannula 4.00 06/11/22 19:00 99 High Flow N/C 4.00 06/11/22 15:43 36.0 83 20 143/73 97 Nasal Cannula 4.00 06/11/22 15:10 96 High Flow N/C 4.00 06/11/22 15:08 96 High Flow N/C 4.00 06/11/22 12:30 86 06/11/22 12:18 36.2 83 20 118/67 95 4.00 I & O 06/12/22 07:00 Intake Total 2330 ml Output Total 1050 ml Balance 1280 ml Height & Weight Height: '" Weight: lbs. oz. kg; 33.60 BMI Method: General Appearance: No Apparent Distress, WD/WN HEENT: PERRL/EOMI, Normal ENT Inspection, Pharynx Normal, Moist Mucous Membranes Neck: Non Tender, Supple Respiratory: No Respiratory Distress, Rales (diffuse), Wheezing (diffuse) Cardiovascular: Regular Rate, Rhythm, No Murmur, Normal Peripheral Pulses Capillary Refill: Less Than 3 Seconds Gastrointestinal: normal bowel sounds, non tender, soft, other (ROTUND) Extremity: Non Tender, Pedal Edema (worse in right foot 2+/4) Neurologic/Psychiatric: Alert, Oriented x3, Normal Mood/Affect Skin: Normal Color, Warm/Dry Lymphatic: No Adenopathy Results Lab Laboratory Tests 06/11/22 05:32 06/12/22 04:30 Assessment/Plan Assessment/Plan 1 IGNACIO ALDRICH MD Jun 12, 2022 11:55
--- NOTE | 2022-06-12 13:55 | Physician Query Clarification ---
Physician Query-General Query to Physician: The medical record reflects the following clinical scenario: The patient, in the setting of History/Risk factors, Chronic HFpEF, At. fib, COPD, HTN, admission 2 weeks ago for Acute heart failure Clinical Findings Admission VS/LABS: HR 100, RR 30, BP 192/102, SpO2 87% sat on 5L, BNP 300.5 increased slightly to 322.1, 1+ pitting edema of lower extremities Treatment Several doses of IV Lasix, Cardiology consult, I and O, Daily wts, Question: Do you agree with the impression of Acute on chronic heart failure with preserved EF per Dr. Joslyn Pugh? 1. Yes; will Acute on chronic HFpEF, present on admisison in the Progress Notes 2. No; will continue current documentation in the Progress Notes 3. Other; will document explanation of clinical findings 4. Clinically undetermined; no explanation for clinical findings Please clarify and document your clinical opinion in the Progress Notes and Discharge Summary including the definitive and/or presumptive diagnosis, (suspected or probable), related to the above clinical findings. Please include clinical findings supporting your diagnosis. In responding to this query, please exercise your independent professional judgment. The purpose of this communication is to more accurately reflect the complexity of your patients condition. The fact that a question is asked does not imply that any particular answer is desired or expected. Thank you for timely response to this clarification. Marshal Velez RN, MSN Clinical [employer]re [employer]er [phone] PHYSICIAN RESPONSE: Based on the clinical findings in the record, please respond to the query above on this document as an addendum. Physician Response: Physician Response 1 If you have questions please contact: Production Analyst: Ext: Thank you for your time and cooperation. Clinical Ore Miner/Production Analyst This is a permanent part of the medical record MARSHAL VELEZ Jun 12, 2022 13:55 CURTIS MOSLEY DO Jun 12, 2022 15:58
--- NOTE | 2022-06-12 14:41 | Occ Therapy Progress Note ---
Therapy Progress Note Pt states that he does not need OT services because he is doing all of his toileting and stuff by himself. Pt is ambulating to bathroom by himself, in agreement. Pt educated on OT services and if pt or has questions before he leaves the hospital have nrsg get in touch with department. Pt very worried about O2 supplies and what type he will be able to get. 1 refusal, DC from OT. [id number] TI OCMAPO Jun 12, 2022 14:40
[2022-06-12 15:40] LABS: ABG BASE EXCESS 4.8 MMOL/L (-2.5-2.5); ABG OXYGEN SATURATION 96 % (94-100); ABG PCO2 42 MMHG (35-45); ABG PH 7.45 (7.37-7.43); ABG PO2 72 MMHG (79-93)
[2022-06-12 15:44] LABS: ALLENS TEST YES-POS; INSPIRED O2 4 L; PATIENT TEMP 36.6; VENTILATOR NO
[2022-06-12] MEDS: MELATONIN 3 MG TABLET PO PRN (19:55)
[2022-06-12] MEDS: ALPRAZolam 0.25 MG (XANAX) TAB PO PRN (19:55)
[2022-06-12] MEDS: MAGNESIUM OXIDE (MAG-OX)400 MG TAB PO SCH (19:55)
[2022-06-12] MEDS: PANTOPRAZOLE 40 MG (PROTONIX) TAB PO SCH (19:55)
[2022-06-13] MEDS: MEROPENEM 500 MG/NS 100 ML IVPB IV SCH ×8 (00:28→19:46)
[2022-06-13] MEDS: RT-ALBUTEROL/IPRATROPIUM 3 ML (DUONEB) VIAL INH SCH ×6 (03:07→22:51)
[2022-06-13 04:44] LABS: BASOPHILS % (AUTO) 0 % (0-10); EOSINOPHILS % (AUTO) 0 % (0-10); HEMATOCRIT 32 % (40-54); HEMOGLOBIN 10.3 g/dL (13.3-17.7); LYMPHOCYTES # (AUTO) 0.3 10^3/uL (1.0-4.0); LYMPHOCYTES % (AUTO) 3 % (12-44); MEAN CORPUSCULAR HEMOGLOBIN 29 pg (25-34); MEAN CORPUSCULAR HGB CONC 32 g/dL (32-36); MEAN CORPUSCULAR VOLUME 88 fL (80-99); MEAN PLATELET VOLUME 11.1 fL (9.0-12.2); MONOCYTES # (AUTO) 0.3 10^3/uL (0.0-1.0); MONOCYTES % (AUTO) 4 % (0-12); NEUTROPHILS # (AUTO) 7.4 10^3/uL (1.8-7.8); NEUTROPHILS % (AUTO) 91 % (42-75); PLATELET COUNT 136 10^3/uL (130-400); WHITE BLOOD COUNT 8.2 10^3/uL (4.3-11.0)
[2022-06-13 04:59] LABS: ALBUMIN 3.5 GM/DL (3.2-4.5); POTASSIUM 4.2 MMOL/L (3.6-5.0)
[2022-06-13 05:02] LABS: TOTAL PROTEIN 5.8 GM/DL (6.4-8.2)
[2022-06-13 05:04] LABS: BILIRUBIN,TOTAL 0.5 MG/DL (0.1-1.0)
[2022-06-13 05:06] LABS: CREATININE SERUM 0.85 MG/DL (0.60-1.30)
[2022-06-13 05:08] LABS: MAGNESIUM 2.1 MG/DL (1.6-2.4)
[2022-06-13 05:13] LABS: BAND NEUTROPHILS 1 %; ELLIPT/OVALOCYTES SLIGHT; LYMPHOCYTES % (MANUAL) 7 %; MONOCYTES % (MANUAL) 6 %; NEUTROPHILS % (MANUAL) 86 %
[2022-06-13 05:14] LABS: ANISOCYTOSIS SLIGHT
[2022-06-13] MEDS: methylPREDNISolone 40 MG/ML (Solu-MEDROL) VIAL IV SCH ×2 (08:27→19:47)
[2022-06-13] MEDS: CLOPIDOGREL 75 MG (PLAVIX) TABLET PO SCH (08:28)
[2022-06-13] MEDS: SENNA W/DOCUSATE (SENOKOT S) TABLET PO SCH ×2 (08:28→19:47)
[2022-06-13] MEDS: ASPIRIN E.C. 81 MG (ECOTRIN) TAB PO SCH (08:28)
[2022-06-13] MEDS: polyethylene glycoL POWDER 17 GM (MIRALAX) PACK PO SCH ×2 (08:28→19:47)
[2022-06-13] MEDS: AMIODARONE 200 MG (CORDARONE) TAB PO SCH (08:29)
[2022-06-13] MEDS: FUROSEMIDE 40 MG (LASIX) TAB PO SCH (08:29)
[2022-06-13] MEDS: guaiFENesin (MUCINEX) 600 MG TAB PO SCH ×2 (08:29→19:46)
[2022-06-13] MEDS: KCL 20 MEQ TAB (K-DUR) PO SCH (08:29)
[2022-06-13] MEDS: ISOSORBIDE MONONITRATE 30 MG (IMDUR) TAB PO SCH (08:29)
[2022-06-13] MEDS: ENOXAPARIN 40 MG/0.4 ML (LOVENOX) SYR SC SCH (10:48)
--- NOTE | 2022-06-13 11:02 | Pulmonary Progress Note ---
Subjective Date Seen by a Provider: Jun 13, 2022 Subjective/Events-last exam Pt used BiPAP overnight and feels breathing is signficantly better. Requesting home BiPAP. Remains on steroids and IV lasix. ABG yesterday with no evidence of hypercapnia. Hospital course: Long admission January - february 2022 with CHF and AECPD/ PNA , requiring intubation for 7 days , then NIPPV and VT Admission 05/26-06/06 for CHF exacerbation, COPD exacerbation. Returned for eval 06/07 after rolling off the couch and injuring ribs, but found to have troponin elevation. Cath done 06/07 with insignificant disease. Thought to be type II NE secondary to severe lung disease. Discharged earlier today 06/09- Readmitted for dyspnea thought 2/2 COPD exacerbation and volume overload. Sepsis Event Evaluation Height, Weight, BMI Height: '" Weight: lbs. oz. kg; 33.94 BMI Method: Exam Exam Patient acknowledged, consented, and participated in this virtual visit which was conducted using real time audio/video Vital Signs Date Time Temp Pulse Resp B/P (MAP) Pulse Ox O2 Delivery O2 Flow Rate FiO2 06/13/22 10:17 97 High Flow N/C 4.00 06/13/22 10:00 36.5 06/13/22 08:00 36.5 85 18 136/86 94 Nasal Cannula 4.00 06/13/22 07:00 82 06/13/22 06:42 97 High Flow N/C 4.00 06/13/22 04:00 36.7 75 15 138/81 99 NIV Bilevel 40.00 06/13/22 03:07 74 21 99 40.00 06/13/22 01:00 85 06/13/22 00:01 36.3 81 22 132/76 99 NIV Bilevel 40.00 06/12/22 21:59 78 16 98 40.00 06/12/22 20:07 36.5 88 20 123/66 98 Nasal Cannula 4.00 06/12/22 20:00 High Flow N/C 4.00 06/12/22 19:00 85 06/12/22 18:26 98 High Flow N/C 4.00 06/12/22 16:06 36.6 77 20 136/69 97 Nasal Cannula 4.00 06/12/22 15:37 98 High Flow N/C 4.00 06/12/22 12:11 74 06/12/22 12:00 36.6 82 20 140/67 98 Nasal Cannula 4.00 06/12/22 11:28 95 High Flow N/C 4.00 I & O 06/13/22 07:00 Intake Total 2120 ml Output Total 1825 ml Balance 295 ml Height & Weight Height: '" Weight: lbs. oz. kg; 33.94 BMI Method: General Appearance: No Apparent Distress, WD/WN HEENT: PERRL/EOMI, Normal ENT Inspection, Pharynx Normal, Moist Mucous Membranes Neck: Non Tender, Supple Respiratory: No Respiratory Distress, Rales (diffuse), Wheezing (diffuse) Cardiovascular: Regular Rate, Rhythm, No Murmur, Normal Peripheral Pulses Capillary Refill: Less Than 3 Seconds Gastrointestinal: soft, other (ROTUND) Extremity: Non Tender, Pedal Edema (worse in right foot 2+/4) Neurologic/Psychiatric: Alert, Oriented x3, Normal Mood/Affect Skin: Normal Color, Warm/Dry Lymphatic: No Adenopathy Results Lab Laboratory Tests 06/12/22 04:30 06/13/22 04:35 Assessment/Plan Assessment/Plan Acute on chronic hypoxemic resp failure likely multifactorial in setting of COPD and CHF: Improved, patient tolerated BiPAP overnight. Now on 4L NC. -Cont nocturnal NIPPV and wean oxygen -Cont monitor volume status and diurese as tolerated. AECOPD -Cont weaning steroids as tolerated. -Cont nebs, cont IS and flatter valve -Cont mucomist and guafenesin -Pulm as outpatient PNA -Ok to stop antibiotics given symptomatic improvement; completed 5 day course of meropenem - CT 01/2022 groundless in the left upper lobe- very similar appearance 05/2022 Blood cx 06/02/22- [place] turbata - THIS ORGANISM IS AN ACTINOMYCETE- -blood cx 05/21o and 21- prelim negative Severe pulm HTN on echo 01/2022 RVSP 70 mmHg with chronically elevated BNP -probably from COPD ( PE was r/o x2 ) -Can do outpatient sleep study as outpatient. MARYA BALTAZAR MD Jun 13, 2022 11:01
--- NOTE | 2022-06-13 11:35 | Physical Therapy Progress Note ---
Therapy Progress Note Patient declined PT stating, "I'm up independently." Spouse confirms. PT to dismiss patient from services at this time due to patient is at PLOF with all gross motor skills safely. 1 DOUGLAS WILKINS PT Jun 13, 2022 11:35
--- NOTE | 2022-06-13 12:40 | Cardiology Progress Note ---
Progress Note-Cardiology Events since last exam Date Seen by Provider: Jun 13, 2022 Time Seen by Provider: 12:39 Events since last exam I am following him due to heart failure and coronary artery disease. Last night he used the BiPAP and he feels fairly rested and less short of breath today. He denies chest pain, palpitations, syncope, or ankle edema. Certain portions of this document may have been dictated utilizing voice recognition technology. Inherent to this technology, typographical and grammatical errors may exist. As much as I am diligent to identify and correct these mistakes, some errors may remain in the document. Vitals Last set of Vitals Signs Vital Signs 06/09/22 06/13/22 04:12 15:22 Temp 36.7 Pulse 88 Resp 18 B/P (MAP) 133/61 Pulse Ox 96 O2 Delivery Nasal Cannula O2 Flow Rate 4.00 FiO2 30 Labs Labs Laboratory Tests 06/13/22 04:35 Exam Vital Signs Vital Signs Date Time Temp Pulse Resp B/P (MAP) Pulse Ox O2 Delivery O2 Flow Rate FiO2 06/13/22 15:22 36.7 88 18 133/61 96 Nasal Cannula 4.00 06/09/22 04:12 30 Physical Exam General: Alert. No acute distress. He is wearing oxygen by nasal cannula. Eye: No xanthelasma. HENT: Normocephalic. Neck: Jugular venous pressure does not appear elevated. Respiratory: Lungs have some mild scattered upper airway sounds bilaterally. Respirations are non-labored. Breath sounds are equal. Symmetrical chest wall expansion. Cardiovascular: Normal rate. Regular rhythm. No murmur. No gallop. No edema. Gastrointestinal: Soft. Normal bowel sounds. Skin: Warm. Dry. Neurologic: Alert and oriented to person, place, time. Cranial nerves 3-11 grossly intact. Psychiatric: Cooperative. Appropriate mood & affect. Labs Laboratory Tests Test 06/13/22 04:35 Range/Units White Blood Count 8.2 4.3-11.0 10^3/uL Red Blood Count 3.60 L 4.30-5.52 10^6/uL Hemoglobin 10.3 L 13.3-17.7 g/dL Hematocrit 32 L 40-54 % Mean Corpuscular Volume 88 80-99 fL Mean Corpuscular Hemoglobin 29 25-34 pg Mean Corpuscular Hemoglobin Concent 32 32-36 g/dL Red Cell Distribution Width 16.8 H 10.0-14.5 % Platelet Count 136 130-400 10^3/uL Mean Platelet Volume 11.1 9.0-12.2 fL Immature Granulocyte % (Auto) 2 % Neutrophils (%) (Auto) 91 H 42-75 % Lymphocytes (%) (Auto) 3 L 12-44 % Monocytes (%) (Auto) 4 0-12 % Eosinophils (%) (Auto) 0 0-10 % Basophils (%) (Auto) 0 0-10 % Neutrophils # (Auto) 7.4 1.8-7.8 10^3/uL Lymphocytes # (Auto) 0.3 L 1.0-4.0 10^3/uL Monocytes # (Auto) 0.3 0.0-1.0 10^3/uL Eosinophils # (Auto) 0.0 0.0-0.3 10^3/uL Basophils # (Auto) 0.0 0.0-0.1 10^3/uL Immature Granulocyte # (Auto) 0.2 H 0.0-0.1 10^3/uL Neutrophils % (Manual) 86 % Lymphocytes % (Manual) 7 % Monocytes % (Manual) 6 % Band Neutrophils 1 % Anisocytosis SLIGHT Elliptocytes SLIGHT Sodium Level 140 135-145 MMOL/L Potassium Level 4.2 3.6-5.0 MMOL/L Chloride Level 100 98-107 MMOL/L Carbon Dioxide Level 26 21-32 MMOL/L Anion Gap 14 5-14 MMOL/L Blood Urea Nitrogen 38 H 7-18 MG/DL Creatinine 0.85 0.60-1.30 MG/DL Estimat Glomerular Filtration Rate 96 BUN/Creatinine Ratio 45 Glucose Level 179 H 70-105 MG/DL Calcium Level 9.0 8.5-10.1 MG/DL Corrected Calcium 9.4 8.5-10.1 MG/DL Magnesium Level 2.1 1.6-2.4 MG/DL Total Bilirubin 0.5 0.1-1.0 MG/DL Aspartate Amino Transf (AST/SGOT) 18 5-34 U/L Alanine Aminotransferase (ALT/SGPT) 29 0-55 U/L Alkaline Phosphatase 53 40-136 U/L Total Protein 5.8 L 6.4-8.2 GM/DL Albumin 3.5 3.2-4.5 GM/DL Diagnosis/Problems Diagnosis/Problems (1) Coronary artery disease with unstable angina pectoris Assessment & Plan: He had a borderline elevated troponin level at the time of admission but I suspect this is the tail end of the non-ST elevation myocardial infarction he suffered last week. He should continue aspirin, clopidogrel, diltiazem, long-acting nitrates, and statin medication. He is not on beta- jelena due to severe underlying pulmonary disease. No additional cardiac testing is indicated at this time. (2) Acute on chronic heart failure with preserved ejection fraction (HFpEF) Status: Acute Assessment & Plan: He may again have some decompensation of his heart failure at the time of this admission. He was treated with 2 doses of intravenous Lasix. His breathing and peripheral edema have improved. I resumed his normal oral dose of Lasix. (3) Paroxysmal atrial fibrillation Status: Chronic Assessment & Plan: He has been remaining in sinus rhythm on amiodarone. I do not have him on oral anticoagulation because his initial episode of atrial fibrillation earlier in 2021 was most likely provoked by a pulmonary embolus and has not recurred in several months. I decreased his amiodarone to 100 mg daily on 06/11 and ultimately, I plan to discontinue this as an outpatient. (4) Ventricular tachycardia Status: Acute Assessment & Plan: This occurred during a previous hospitalization and there have been no signs of recurrence. Continue diltiazem. (5) Pulmonary hypertension Status: Chronic Assessment & Plan: His echocardiogram from earlier this year showed pulmonary hypertension. This is most likely due to his pulmonary disease and heart failure. He should continue with home oxygen. He did also undergo a CT angiogram this admission which showed no evidence of pulmonary embolism. (6) Primary hypertension Status: Chronic Assessment & Plan: His blood pressure has been reasonably well controlled during this admission. Continue diltiazem. (7) Mixed hyperlipidemia Status: Chronic Assessment & Plan: Continue statin medication. (8) Acute on chronic respiratory failure with hypoxemia Status: Acute Assessment & Plan: Most likely due to his underlying pulmonary disease with some superimposed heart failure and possibly residual pneumonia. I think he would benefit from having a CPAP or BiPAP at home prior to discharge. He also wears home oxygen 12/05. CAROL LEWIS JR, MD Jun 13, 2022 12:40
--- NOTE | 2022-06-13 13:35 | Progress Note - Hospitalist ---
MEL FLETCHER 06/13/22 1335: Subjective HPI/CC On Admission Date Seen by Provider: Jun 13, 2022 Time Seen by Provider: 09:42 CC: Respiratory failure with volume overload HPI: This is a 66yoWM well known to me from multiple hospital stays for the same issue due to severe COPD and continued smoking until 4 weeks prior to last admit who presented to the ER with dyspnea after he was just DC after cardiac cath rev ealing mild CAD by Dr Pugh. Patient was given IV Lasix. O2 is at 5L/min. Patient did use biPAP last night and is now doing better and has received IV Lasix with good results. Subjective/Events-last exam Audie Gonzalez is a 66y/o M who was admitted on 06/09 for acute on chronic respiratory failure and COPD exacebation. He has been hospitalized for this issue multiple times recently. He was started on IV steroids, duonebs, and meropenem. IV lasix was given due to decompensation of his heart failure. Also required BiPAP. Cardiology and eICU was consulted. Moved down to 4th floor on 06/10. On 06/11 his solumedrol was decreased from 80mg BID to 40 BID. Pt asked multiple times if he could get a BiPAP for home when he gets discharged. At the time he did not meet criteria. Discussed with pt about hospice care which at the time he declined. Pulmnology was consulted at 06/12. Worked with PT and OT over the course of his stay. Received duonebs, meropenem, and solumedrol throughout the stay. His SOB and productive cough has slowly improved while he was here. Plan is to try and see if there is any way he may qualify for a BiPAP. May be a possibility he could get a BiPAP if he elects to go hospice through one of the hospice services in [facility]. Pt reports he used a BiPAP last night and feels well rested. Believes that the BiPAP did help a lot. Believes that his chest congestion has improved. Appetite is good and he has been able to have bowel movements. Review of Systems General: No Chills, No Night Sweats HEENT: No Head Aches, No Visual Changes Pulmonary: Dyspnea, Cough Cardiovascular: No: Chest Pain, Palpitations Gastrointestinal: No: Nausea, Vomiting, Abdominal Pain Genitourinary: No Dysuria, No Hematuria Musculoskeletal: No: neck pain, shoulder pain Neurological: No: Weakness, Numbness Objective Exam Vital Signs Vital Signs Date Time Temp Pulse Resp B/P (MAP) Pulse Ox O2 Delivery O2 Flow Rate FiO2 06/13/22 11:27 36.8 84 18 125/64 92 Nasal Cannula 4.00 06/09/22 04:12 30 Capillary Refill : Less Than 3 Seconds General Appearance: No Apparent Distress, WD/WN Neck: Non Tender, Supple Respiratory: No Respiratory Distress, Wheezing (diffuse) Cardiovascular: Regular Rate, Rhythm, No Murmur Gastrointestinal: Non Tender, Soft Extremity: Non Tender, No Calf Tenderness, Pedal Edema (right worse than left 2+/4) Neurologic/Psychiatric: Alert, Normal Mood/Affect Skin: Normal Color Lymphatic: No Adenopathy Results/Procedures Lab Laboratory Tests 06/13/22 04:35 Patient resulted labs reviewed. Assessment/Plan Assessment and Plan Assess & Plan/Chief Complaint Assessment: Acute on chronic respiratory failure BiPAP dependent Severe COPD/Emphysema PAF CAD mild disease in recent cath on Friday Dr Pugh Recent smoking cessation 4 weeks ago Previous respiratory failure with long ventilator course Anxiety RA Polyarthrlagia Plan: Supplemental O2 BiPAP used at night Finishing meropenem Solumedrol 40mg BID Oral lasix 40mg, on supplemental K+ Cardiology following Continue PT and RT Pulmonology consulted 4th floor Discussed with him his future options on 06/12. Talked about the possibility of hospice care vs. snf placement vs. returning home. He asked about getting a BiPAP machine at home but he does not meet criteria. Pt is reluctant to be discharged because "he knows he will if he gets sent home and does not have a BiPAP". Reinforced to him that he does not meet criteria. Offered social work to come and talk with him about his options. Pt and agreed to that and stated that they wanted to have some time to talk about it together before making a decision. Ended up declining hospice 06/13: May be a chance he could get BiPAP if he decides to go on hospice care through one of the hospice providers. [employer] is looking into it SHERRI MOSLEY DO 06/14/22 0542: Subjective Subjective/Events-last exam Hospice will provide BiPAP and he will discharge tomorrow Assessment/Plan Assessment and Plan Assess & Plan/Chief Complaint Hospice will provide BiPAP and he will discharge tomorrow Supervisory-Addendum Brief Verification & Attestation Participated in pt care: history, MDM, physical Personally performed: exam, history, MDM, supervision of care Care discussed with: Medical Student Procedures: n/a Results interpretation: Verified all documentation Verification and Attestation of Medical Student E/M Service A medical student performed and documented this service in my presence. I reviewed and verified all information documented by the medical student and made modifications to such information, when appropriate. I personally performed the physical exam and medical decision making. Sherri Mosley, Jun 14, 2022,05:42 MEL FLETCHER Jun 13, 2022 13:35 SHERRI MOSLEY DO Jun 14, 2022 05:42
[2022-06-13] MEDS: PANTOPRAZOLE 40 MG (PROTONIX) TAB PO SCH (19:46)
[2022-06-13] MEDS: ALPRAZolam 0.25 MG (XANAX) TAB PO PRN (19:47)
[2022-06-13] MEDS: MAGNESIUM OXIDE (MAG-OX)400 MG TAB PO SCH (19:47)
[2022-06-14] MEDS: MEROPENEM 500 MG/NS 100 ML IVPB IV SCH ×2 (01:35)
[2022-06-14] MEDS: RT-ALBUTEROL/IPRATROPIUM 3 ML (DUONEB) VIAL INH SCH ×4 (02:34→13:39)
[2022-06-14 04:34] LABS: HEMOGLOBIN 9.3 g/dL (13.3-17.7)
[2022-06-14 04:36] LABS: BASOPHILS % (AUTO) 0 % (0-10); EOSINOPHILS % (AUTO) 0 % (0-10); HEMATOCRIT 29 % (40-54); LYMPHOCYTES # (AUTO) 0.2 10^3/uL (1.0-4.0); LYMPHOCYTES % (AUTO) 2 % (12-44); MEAN CORPUSCULAR HEMOGLOBIN 28 pg (25-34); MEAN CORPUSCULAR HGB CONC 32 g/dL (32-36); MEAN CORPUSCULAR VOLUME 88 fL (80-99); MONOCYTES # (AUTO) 0.3 10^3/uL (0.0-1.0); MONOCYTES % (AUTO) 4 % (0-12); NEUTROPHILS # (AUTO) 7.9 10^3/uL (1.8-7.8); NEUTROPHILS % (AUTO) 93 % (42-75); PLATELET COUNT 116 10^3/uL (130-400); WHITE BLOOD COUNT 8.5 10^3/uL (4.3-11.0)
[2022-06-14 04:47] LABS: ALBUMIN 3.4 GM/DL (3.2-4.5)
[2022-06-14 04:48] LABS: CALCIUM 8.6 MG/DL (8.5-10.1)
[2022-06-14 04:49] LABS: TOTAL PROTEIN 5.5 GM/DL (6.4-8.2)
[2022-06-14 04:51] LABS: BILIRUBIN,TOTAL 0.6 MG/DL (0.1-1.0)
[2022-06-14 04:53] LABS: CREATININE SERUM 0.77 MG/DL (0.60-1.30)
[2022-06-14 04:56] LABS: MAGNESIUM 2.1 MG/DL (1.6-2.4)
[2022-06-14] MEDS ORDERED: AMIO200T65 PO (08:25)
[2022-06-14] MEDS ORDERED: ISOS30TA82 PO (08:25)
--- NOTE | 2022-06-14 08:27 | Cardiology Progress Note ---
Progress Note-Cardiology Events since last exam Date Seen by Provider: Jun 14, 2022 Time Seen by Provider: 08:26 Events since last exam I am following him due to heart failure and coronary artery disease. He has been doing quite well with the BiPAP at night. Plans are in place for him to get a CPAP or BiPAP at home, hopefully later today. He does have some mild peripheral edema today. He denies chest pain, palpitations, or syncope. Certain portions of this document may have been dictated utilizing voice recognition technology. Inherent to this technology, typographical and grammatical errors may exist. As much as I am diligent to identify and correct these mistakes, some errors may remain in the document. Vitals Last set of Vitals Signs Vital Signs 06/09/22 06/14/22 06/14/22 06/14/22 04:12 03:45 07:00 07:27 Temp 36.5 Pulse 82 Resp 18 B/P (MAP) 115/58 Pulse Ox 95 O2 Delivery Nasal Cannula O2 Flow Rate 4.00 FiO2 30 Labs Labs Laboratory Tests 06/14/22 04:30 Exam Vital Signs Vital Signs Date Time Temp Pulse Resp B/P (MAP) Pulse Ox O2 Delivery O2 Flow Rate FiO2 06/14/22 07:27 95 Nasal Cannula 4.00 06/14/22 07:00 82 06/14/22 03:45 36.5 18 115/58 06/09/22 04:12 30 Physical Exam General: Alert. No acute distress. He is wearing oxygen by nasal cannula. Eye: No xanthelasma. HENT: Normocephalic. Neck: Jugular venous pressure does not appear elevated. Respiratory: Lungs have some scattered wheezes and upper airway sounds. Respirations are non-labored. Breath sounds are equal. Symmetrical chest wall expansion. Cardiovascular: Normal rate. Regular rhythm. Distant S1/S2. No murmur. No gallop. 1+ bilateral pretibial edema. Gastrointestinal: Soft. Normal bowel sounds. Skin: Warm. Dry. Neurologic: Alert and oriented to person, place, time. Cranial nerves 3-11 gross ly intact. Psychiatric: Cooperative. Appropriate mood & affect. Labs Laboratory Tests Test 06/14/22 04:30 Range/Units White Blood Count 8.5 4.3-11.0 10^3/uL Red Blood Count 3.27 L 4.30-5.52 10^6/uL Hemoglobin 9.3 L 13.3-17.7 g/dL Hematocrit 29 L 40-54 % Mean Corpuscular Volume 88 80-99 fL Mean Corpuscular Hemoglobin 28 25-34 pg Mean Corpuscular Hemoglobin Concent 32 32-36 g/dL Red Cell Distribution Width 16.9 H 10.0-14.5 % Platelet Count 116 L 130-400 10^3/uL Mean Platelet Volume 11.0 9.0-12.2 fL Immature Granulocyte % (Auto) 1 % Neutrophils (%) (Auto) 93 H 42-75 % Lymphocytes (%) (Auto) 2 L 12-44 % Monocytes (%) (Auto) 4 0-12 % Eosinophils (%) (Auto) 0 0-10 % Basophils (%) (Auto) 0 0-10 % Neutrophils # (Auto) 7.9 H 1.8-7.8 10^3/uL Lymphocytes # (Auto) 0.2 L 1.0-4.0 10^3/uL Monocytes # (Auto) 0.3 0.0-1.0 10^3/uL Eosinophils # (Auto) 0.0 0.0-0.3 10^3/uL Basophils # (Auto) 0.0 0.0-0.1 10^3/uL Immature Granulocyte # (Auto) 0.1 0.0-0.1 10^3/uL Percent Immature Platelet Fraction 3.9 0.0-7.6 % Sodium Level 136 135-145 MMOL/L Potassium Level 4.0 3.6-5.0 MMOL/L Chloride Level 100 98-107 MMOL/L Carbon Dioxide Level 25 21-32 MMOL/L Anion Gap 11 5-14 MMOL/L Blood Urea Nitrogen 37 H 7-18 MG/DL Creatinine 0.77 0.60-1.30 MG/DL Estimat Glomerular Filtration Rate 99 BUN/Creatinine Ratio 48 Glucose Level 154 H 70-105 MG/DL Calcium Level 8.6 8.5-10.1 MG/DL Corrected Calcium 9.1 8.5-10.1 MG/DL Magnesium Level 2.1 1.6-2.4 MG/DL Total Bilirubin 0.6 0.1-1.0 MG/DL Aspartate Amino Transf (AST/SGOT) 19 5-34 U/L Alanine Aminotransferase (ALT/SGPT) 27 0-55 U/L Alkaline Phosphatase 51 40-136 U/L Total Protein 5.5 L 6.4-8.2 GM/DL Albumin 3.4 3.2-4.5 GM/DL Diagnosis/Problems Diagnosis/Problems (1) Acute on chronic heart failure with preserved ejection fraction (HFpEF) Status: Acute Assessment & Plan: I suspect he had some decompensation of his heart failure at the time of this admission. He was treated with 2 doses of intravenous Lasix. His breathing and peripheral edema have improved. I resumed his normal oral dose of Lasix. (2) Coronary artery disease with unstable angina pectoris Assessment & Plan: He had a borderline elevated troponin level at the time of admission but I suspect this is the tail end of the non-ST elevation myocardial infarction he suffered last week. He should continue aspirin, clopidogrel, diltiazem, long-acting nitrates, and statin medication. He is not on beta- jelena due to severe underlying pulmonary disease. No additional cardiac testing is indicated at this time. (3) Paroxysmal atrial fibrillation Status: Chronic Assessment & Plan: He has been remaining in sinus rhythm on amiodarone. I do not have him on oral anticoagulation because his initial episode of atrial fibrillation earlier in 2021 was most likely provoked by a pulmonary embolus, was brief, and has not recurred in several months. I decreased his amiodarone t o 100 mg daily on 06/11 and ultimately, I plan to discontinue this as an outpatient. (4) Ventricular tachycardia Status: Acute Assessment & Plan: This occurred during a previous hospitalization and there have been no signs of recurrence. Continue diltiazem. (5) Pulmonary hypertension Status: Chronic Assessment & Plan: His echocardiogram from earlier this year showed pulmonary hypertension. This is most likely due to his pulmonary disease and heart failure. He should continue with home oxygen. He did also undergo a CT angiogram this admission which showed no evidence of pulmonary embolism. (6) Primary hypertension Status: Chronic Assessment & Plan: His blood pressure has been reasonably well controlled during this admission. Continue diltiazem. (7) Mixed hyperlipidemia Status: Chronic Assessment & Plan: Continue statin medication. (8) Acute on chronic respiratory failure with hypoxemia Status: Acute Assessment & Plan: Most likely due to his underlying pulmonary disease with some superimposed heart failure and possibly residual pneumonia. I think he wo uld benefit from having a CPAP or BiPAP at home prior to discharge. He also wears home oxygen 12/05. CAROL LEWIS JR, MD Jun 14, 2022 08:27
[2022-06-14] MEDS: methylPREDNISolone 40 MG/ML (Solu-MEDROL) VIAL IV SCH (08:47)
[2022-06-14] MEDS: ISOSORBIDE MONONITRATE 30 MG (IMDUR) TAB PO SCH (08:47)
[2022-06-14] MEDS: polyethylene glycoL POWDER 17 GM (MIRALAX) PACK PO SCH (08:47)
[2022-06-14] MEDS: CLOPIDOGREL 75 MG (PLAVIX) TABLET PO SCH (08:47)
[2022-06-14] MEDS: ASPIRIN E.C. 81 MG (ECOTRIN) TAB PO SCH (08:47)
[2022-06-14] MEDS: guaiFENesin (MUCINEX) 600 MG TAB PO SCH (08:47)
[2022-06-14] MEDS: FUROSEMIDE 40 MG (LASIX) TAB PO SCH (08:48)
[2022-06-14] MEDS: SENNA W/DOCUSATE (SENOKOT S) TABLET PO SCH (08:48)
[2022-06-14] MEDS: AMIODARONE 200 MG (CORDARONE) TAB PO SCH (08:48)
[2022-06-14] MEDS: KCL 20 MEQ TAB (K-DUR) PO SCH (08:48)
[2022-06-14] MEDS: ENOXAPARIN 40 MG/0.4 ML (LOVENOX) SYR SC SCH (10:21)
[2022-06-14] MEDS ORDERED: OXC5T PO (11:32)
[2022-06-14] MEDS ORDERED: LORA2ORA PO (11:32)
[2022-06-14] MEDS ORDERED: MORP100S7 PO (11:32)
--- NOTE | 2022-06-14 11:34 | Discharge Summary ---
Discharge Summary Hospital Course Was the Problem List Reviewed?: Yes Problems/Dx: (1) Acute on chronic heart failure with preserved ejection fraction (HFpEF) Status: Acute (2) Coronary artery disease with unstable angina pectoris (3) Paroxysmal atrial fibrillation Status: Chronic (4) Ventricular tachycardia Status: Acute (5) Pulmonary hypertension Status: Chronic (6) Primary hypertension Status: Chronic (7) Mixed hyperlipidemia Status: Chronic (8) Acute on chronic respiratory failure with hypoxemia Status: Acute Hospital Course Date of Admission: Jun 09, 2022 at 02:45 Admission Diagnosis : Family Physician/Provider: Reggie Arce Date of Discharge: 06/14/22 Discharge Diagnosis: end stage COPD Hospital Course: [ ] Labs and Pending Lab Test: Laboratory Tests 06/14/22 04:30: White Blood Count 8.5, Red Blood Count 3.27L, Hemoglobin 9.3L, Hematocrit 29L, Mean Corpuscular Volume 88, Mean Corpuscular Hemoglobin 28, Mean Corpuscular Hemoglobin Concent 32, Red Cell Distribution Width 16.9H, Platelet Count 116L, Mean Platelet Volume 11.0, Immature Granulocyte % (Auto) 1, Neutrophils (%) (Auto) 93H, Lymphocytes (%) (Auto) 2L, Monocytes (%) (Auto) 4, Eosinophils (%) (Auto) 0, Basophils (%) (Auto) 0, Neutrophils # (Auto) 7.9H, Lymphocytes # (Auto) 0.2L, Monocytes # (Auto) 0.3, Eosinophils # (Auto) 0.0, Basophils # (Auto) 0.0, Immature Granulocyte # (Auto) 0.1, Percent Immature Platelet Fraction 3.9, Sodium Level 136, Potassium Level 4.0, Chloride Level 100, Carbon Dioxide Level 25, Anion Gap 11, Blood Urea Nitrogen 37H, Creatinine 0.77, Estimat Glomerular Filtration Rate 99, BUN/Creatinine Ratio 48, Glucose Level 154H, Calcium Level 8.6, Corrected Calcium 9.1, Magnesium Level 2.1, Total Bilirubin 0.6, Aspartate Amino Transf (AST/SGOT) 19, Alanine Aminotransferase (ALT/SGPT) 27, Alkaline Phosphatase 51, Total Protein 5.5L, Albumin 3.4 Microbiology 06/11/22 Gram Stain - Final, Resulted 06/11/22 Sputum Culture - Preliminary, Resulted YEAST Usual upper respiratory ravi 06/11/22 Fungal Culture 1 - Preliminary, Resulted Aspergillus niger 06/09/22 Blood Culture - Preliminary, Resulted No growth Home Meds Active Isosorbide Mononitrate ER (Isosorbide Mononitrate) 30 Mg Tab.er.24h 30 Mg PO DAILY Amiodarone HCl 200 Mg Tablet 100 Mg PO DAILY Clopidogrel (Clopidogrel Bisulfate) 75 Mg Tablet 75 Mg PO DAILY Prednisone 10 Mg Tab 0 PO UD Take 5 tabs(50mg)daily, decrease by 1 tab(10mg) every other day. Aspirin EC (Aspirin) 81 Mg Tablet.dr 81 Mg PO DAILY Nitroglycerin 0.4 Mg Tab.subl 0.4 Mg SL UD PRN Diltiazem 24Hr ER (Diltiazem HCl) 120 Mg Cap.er.24h 240 Mg PO DAILY Amiodarone HCl 200 Mg Tablet 200 Mg PO DAILY Reported Albuterol Sulfate 2.5 Mg/3 Ml (0.083 %) Vial.neb 2.5 Mg NEB Q6H PRN Stiolto Respimat Inhal [place] (Tiotropium Br/Olodaterol HCl) 2.5 Mcg-2.5 Mcg/Actuation Mist.inhal 2 Puff INH DAILY Hydrocodone-Acetamin 10-325 mg (Hydrocodone/Acetaminophen) 10 Mg-325 Mg Tablet 1 Each PO TID PRN Ferrous Sulfate 325 Mg (65 Mg Iron) Tablet 325 Mg PO Q48H Multivitamin 1 Each Tablet 1 Each PO DAILY Potassium Chloride 20 Meq Tab.er.prt 20 Meq PO DAILY Magnesium Oxide 400 Mg Tablet 400 Mg PO HS Pantoprazole Sodium 40 Mg Tablet.dr 40 Mg PO HS Mucinex (Guaifenesin) 1,200 Mg Tab.er.12h 1,200 Mg PO BID Furosemide 40 Mg Tablet 40 Mg PO DAILY Atorvastatin Calcium 20 Mg Tablet 20 Mg PO DAILY Assessment/Pt Instructions BiPAP 09/24 and oxygen to be bled into biPAP at 40% Discharge Planning: <30 minutes discharge planning Discharge Instructions Discharge Diet: No Restrictions Discharge Physical Examination Vital Signs Vital Signs Date Time Temp Pulse Resp B/P (MAP) Pulse Ox O2 Delivery O2 Flow Rate FiO2 06/14/22 11:15 36.6 85 18 145/63 98 Nasal Cannula 5.00 06/09/22 04:12 30 General Appearance: No Apparent Distress, WD/WN, Chronically ill Respiratory: Lungs Clear, Decreased Breath Sounds Cardiovascular: Regular Rate, Rhythm Allergies: Coded Allergies: No Known Drug Allergies (Unverified , 11/26/21) Discharge Summary Date of Admission Jun 09, 2022 at 02:45 Date of Discharge Discharge Date: Jun 14, 2022 Admission Diagnosis Assessment: Acute on chronic respiratory failure BiPAP dependent Severe COPD/Emphysema PAF CAD mild disease in recent cath on Friday Dr Pugh Recent smoking cessation 4 weeks ago Previous respiratory failure with long ventilator course Anxiety RA Polyarthrlagia Plan: O2 BiPAP Monitor closely ICU IV steroids IV Lasix Cardiology consult EICU consult Discharge Diagnosis Hospice will provide BiPAP and he will discharge tomorrow (1) Acute on chronic heart failure with preserved ejection fraction (HFpEF) Status: Acute Assessment & Plan: I suspect he had some decompensation of his heart failure at the time of this admission. He was treated with 2 doses of intravenous Lasix. His breathing and peripheral edema have improved. I resumed his normal oral dose of Lasix. (2) Coronary artery disease with unstable angina pectoris Assessment & Plan: He had a borderline elevated troponin level at the time of admission but I suspect this is the tail end of the non-ST elevation myocardial infarction he suffered last week. He should continue aspirin, clopidogrel, diltiazem, long-acting nitrates, and statin medication. He is not on beta- jelena due to severe underlying pulmonary disease. No additional cardiac testing is indicated at this time. (3) Paroxysmal atrial fibrillation Status: Chronic Assessment & Plan: He has been remaining in sinus rhythm on amiodarone. I do not have him on oral anticoagulation because his initial episode of atrial fibrillation earlier in 2021 was most likely provoked by a pulmonary embolus, was brief, and has not recurred in several months. I decreased his amiodarone to 100 mg daily on 06/11 and ultimately, I plan to discontinue this as an outpatient. (4) Ventricular tachycardia Status: Acute Assessment & Plan: This occurred during a previous hospitalization and there have been no signs of recurrence. Continue diltiazem. (5) Pulmonary hypertension Status: Chronic Assessment & Plan: His echocardiogram from earlier this year showed pulmonary hypertension. This is most likely due to his pulmonary disease and heart failure. He should continue with home oxygen. He did also undergo a CT angiogram this admission which showed no evidence of pulmonary embolism. (6) Primary hypertension Status: Chronic Assessment & Plan: His blood pressure has been reasonably well controlled during this admission. Continue diltiazem. (7) Mixed hyperlipidemia Status: Chronic Assessment & Plan: Continue statin medication. (8) Acute on chronic respiratory failure with hypoxemia Status: Acute Assessment & Plan: Most likely due to his underlying pulmonary disease with some superimposed heart failure and possibly residual pneumonia. I think he would benefit from having a CPAP or BiPAP at home prior to discharge. He also wears home oxygen /. CURTIS MOSLEY DO Jun 14, 2022 11:33
[2022-06-14] MEDS ORDERED: PRED10TA22 PO (11:44)
--- NOTE | 2022-06-14 11:45 | Discharge Summary ---
Discharge Summary Hospital Course Was the Problem List Reviewed?: Yes Problems/Dx: (1) Acute on chronic heart failure with preserved ejection fraction (HFpEF) Status: Acute (2) Coronary artery disease with unstable angina pectoris (3) Paroxysmal atrial fibrillation Status: Chronic (4) Ventricular tachycardia Status: Acute (5) Pulmonary hypertension Status: Chronic (6) Primary hypertension Status: Chronic (7) Mixed hyperlipidemia Status: Chronic (8) Acute on chronic respiratory failure with hypoxemia Status: Acute Hospital Course Date of Admission: Jun 09, 2022 at 02:45 Admission Diagnosis : Family Physician/Provider: Reggie Arce Date of Discharge: 06/14/22 Discharge Diagnosis: [ ] Hospital Course: Hospital course: Audie Gonzalez is a 66y/o M who was admitted on 06/09 for acute on chronic respiratory failure and COPD exacebation. He has been hospitalized for this issue multiple times recently. He was started on IV steroids, duonebs, and meropenem. IV lasix was given due to decompensation of his heart failure. Also required BiPAP. Cardiology and eICU was consulted. Moved down to 4th floor on 06/10. On 06/11 his solumedrol was decreased from 80mg BID to 40 BID. Pt asked multiple times if he could get a BiPAP for home when he gets discharged. At the time he did not meet criteria. Discussed with pt about hospice care which at the time he declined. Pulmnology was consulted at 06/12. Worked with PT and OT over the course of his stay. Received duonebs, meropenem, and solumedrol throughout the stay. His SOB and productive cough has slowly improved while he was here. He has changed his mind about hospice care will be discharging to home on it. Will be getting a BiPAP machine at home to use through the hospice service. Prednisone taper to be done at home. MEL FLETCHER Labs and Pending Lab Test: Laboratory Tests 06/14/22 04:30: White Blood Count 8.5, Red Blood Count 3.27L, Hemoglobin 9.3L, Hematocrit 29L, Mean Corpuscular Volume 88, Mean Corpuscular Hemoglobin 28, Mean Corpuscular Hemoglobin Concent 32, Red Cell Distribution Width 16.9H, Platelet Count 116L, Mean Platelet Volume 11.0, Immature Granulocyte % (Auto) 1, Neutrophils (%) (Auto) 93H, Lymphocytes (%) (Auto) 2L, Monocytes (%) (Auto) 4, Eosinophils (%) (Auto) 0, Basophils (%) (Auto) 0, Neutrophils # (Auto) 7.9H, Lymphocytes # (Au to) 0.2L, Monocytes # (Auto) 0.3, Eosinophils # (Auto) 0.0, Basophils # (Auto) 0.0, Immature Granulocyte # (Auto) 0.1, Percent Immature Platelet Fraction 3.9, Sodium Level 136, Potassium Level 4.0, Chloride Level 100, Carbon Dioxide Level 25, Anion Gap 11, Blood Urea Nitrogen 37H, Creatinine 0.77, Estimat Glomerular Filtration Rate 99, BUN/Creatinine Ratio 48, Glucose Level 154H, Calcium Level 8.6, Corrected Calcium 9.1, Magnesium Level 2.1, Total Bilirubin 0.6, Aspartate Amino Transf (AST/SGOT) 19, Alanine Aminotransferase (ALT/SGPT) 27, Alkaline Phosphatase 51, Total Protein 5.5L, Albumin 3.4 Microbiology 06/11/22 Gram Stain - Final, Resulted 06/11/22 Sputum Culture - Final, Resulted Aspergillus niger Usual upper respiratory ravi 06/11/22 Fungal Culture 1 - Preliminary, Resulted Aspergillus niger 06/09/22 Blood Culture - Preliminary, Resulted No growth Home Meds Active Prednisone 10 Mg Tab.ds.pk 10 Mg PO DAILY Take 6 tabs(60mg)daily,decrease by 1 tab(10mg)every other day. Lorazepam Intensol (Lorazepam) 2 Mg/Ml Oral.conc 1 Mg PO Q2H PRN Morphine Conc. 20mg/ml (Morphine Sulfate) 100 Mg/5 Ml (20 Mg/Ml) Solution 10 Mg PO Q2H PRN Oxyir Tablet (Oxycodone HCl) 5 Mg Tab 10 Mg PO Q4H PRN Isosorbide Mononitrate ER (Isosorbide Mononitrate) 30 Mg Tab.er.24h 30 Mg PO DAILY Amiodarone HCl 200 Mg Tablet 100 Mg PO DAILY Clopidogrel (Clopidogrel Bisulfate) 75 Mg Tablet 75 Mg PO DAILY Prednisone 10 Mg Tab 0 PO UD Take 5 tabs(50mg)daily, decrease by 1 tab(10mg) every other day. Aspirin EC (Aspirin) 81 Mg Tablet.dr 81 Mg PO DAILY Nitroglycerin 0.4 Mg Tab.subl 0.4 Mg SL UD PRN Diltiazem 24Hr ER (Diltiazem HCl) 120 Mg Cap.er.24h 240 Mg PO DAILY Amiodarone HCl 200 Mg Tablet 200 Mg PO DAILY Reported Albuterol Sulfate 2.5 Mg/3 Ml (0.083 %) Vial.neb 2.5 Mg NEB Q6H PRN Stiolto Respimat Inhal [place] (Tiotropium Br/Olodaterol HCl) 2.5 Mcg-2.5 Mcg/Actuation Mist.inhal 2 Puff INH DAILY Hydrocodone-Acetamin 10-325 mg (Hydrocodone/Acetaminophen) 10 Mg-325 Mg Tablet 1 Each PO TID PRN Ferrous Sulfate 325 Mg (65 Mg Iron) Tablet 325 Mg PO Q48H Multivitamin 1 Each Tablet 1 Each PO DAILY Potassium Chloride 20 Meq Tab.er.prt 20 Meq PO DAILY Magnesium Oxide 400 Mg Tablet 400 Mg PO HS Pantoprazole Sodium 40 Mg Tablet.dr 40 Mg PO HS Mucinex (Guaifenesin) 1,200 Mg Tab.er.12h 1,200 Mg PO BID Furosemide 40 Mg Tablet 40 Mg PO DAILY Atorvastatin Calcium 20 Mg Tablet 20 Mg PO DAILY Assessment/Pt Instructions PCP with hospice Discharge Planning: <30 minutes discharge planning Discharge Instructions Discharge Diet: No Restrictions Discharge Physical Examination Vital Signs Vital Signs Date Time Temp Pulse Resp B/P (MAP) Pulse Ox O2 Delivery O2 Flow Rate FiO2 06/14/22 11:15 36.6 85 18 145/63 98 Nasal Cannula 5.00 06/09/22 04:12 30 General Appearance: No Apparent Distress, WD/WN, Anxious Allergies: Coded Allergies: No Known Drug Allergies (Unverified , 11/26/21) Discharge Summary Date of Admission Jun 09, 2022 at 02:45 Date of Discharge Discharge Date: Jun 14, 2022 Admission Diagnosis Assessment: Acute on chronic respiratory failure BiPAP dependent Severe COPD/Emphysema PAF CAD mild disease in recent cath on Friday Dr Pugh Recent smoking cessation 4 weeks ago Previous respiratory failure with long ventilator course Anxiety RA Polyarthrlagia Plan: O2 BiPAP Monitor closely ICU IV steroids IV Lasix Cardiology consult EICU consult Discharge Diagnosis Hospice will provide BiPAP and he will discharge tomorrow (1) Acute on chronic heart failure with preserved ejection fraction (HFpEF) Status: Acute Assessment & Plan: I suspect he had some decompensation of his heart failure at the time of this admission. He was treated with 2 doses of intravenous Lasix. His breathing and peripheral edema have improved. I resumed his normal oral dose of Lasix. (2) Coronary artery disease with unstable angina pectoris Assessment & Plan: He had a borderline elevated troponin level at the time of admission but I suspect this is the tail end of the non-ST elevation myocardial infarction he suffered last week. He should continue aspirin, clopidogrel, diltiazem, long-acting nitrates, and statin medication. He is not on beta- jelena due to severe underlying pulmonary disease. No additional cardiac testing is indicated at this time. (3) Paroxysmal atrial fibrillation Status: Chronic Assessment & Plan: He has been remaining in sinus rhythm on amiodarone. I do not have him on oral anticoagulation because his initial episode of atrial fibrillation earlier in 2021 was most likely provoked by a pulmonary embolus, was brief, and has not recurred in several months. I decreased his amiodarone to 100 mg daily on 06/11 and ultimately, I plan to discontinue this as an outpatient. (4) Ventricular tachycardia Status: Acute Assessment & Plan: This occurred during a previous hospitalization and there have been no signs of recurrence. Continue diltiazem. (5) Pulmonary hypertension Status: Chronic Assessment & Plan: His echocardiogram from earlier this year showed pulmonary hypertension. This is most likely due to his pulmonary disease and heart failure. He should continue with home oxygen. He did also undergo a CT angiogram this admission which showed no evidence of pulmonary embolism. (6) Primary hypertension Status: Chronic Assessment & Plan: His blood pressure has been reasonably well controlled during this admission. Continue diltiazem. (7) Mixed hyperlipidemia Status: Chronic Assessment & Plan: Continue statin medication. (8) Acute on chronic respiratory failure with hypoxemia Status: Acute Assessment & Plan: Most likely due to his underlying pulmonary disease with some superimposed heart failure and possibly residual pneumonia. I think he would benefit from having a CPAP or BiPAP at home prior to discharge. He also wears home oxygen 12/05. CURTIS MOSLEY DO Jun 14, 2022 11:45
--- NOTE | 2022-06-14 12:10 | Progress Note ---
MEL FLETCHER 06/14/22 1210: Progress Note Hospital course: Audie Gonzalez is a 66y/o M who was admitted on 06/09 for acute on chronic respiratory failure and COPD exacebation. He has been hospitalized for this issue multiple times recently. He was started on IV steroids, duonebs, and meropenem. IV lasix was given due to decompensation of his heart failure. Also required BiPAP. Cardiology and eICU was consulted. Moved down to 4th floor on 06/10. On 06/11 his solumedrol was decreased from 80mg BID to 40 BID. Pt asked multiple times if he could get a BiPAP for home when he gets discharged. At the time he did not meet criteria. Discussed with pt about hospice care which at the time he declined. Pulmnology was consulted at 06/12. Worked with PT and OT over the course of his stay. Received duonebs, meropenem, and solumedrol throughout the stay. His SOB and productive cough has slowly improved while he was here. He has changed his mind about hospice care will be discharging to home on it. Will be getting a BiPAP machine at home to use through the hospice service. Prednisone taper to be done at home. SHERRI MOSLEY DO 06/15/22 0555: Supervisory-Addendum Brief Verification & Attestation Participated in pt care: history, MDM, physical Personally performed: exam, history, MDM, supervision of care Care discussed with: Medical Student Procedures: n/a Results interpretation: Verified all documentation Verification and Attestation of Medical Student E/M Service A medical student performed and documented this service in my presence. I reviewed and verified all information documented by the medical student and made modifications to such information, when appropriate. I personally performed the physical exam and medical decision making. Sherri Mosley Jun 15, 2022,05:55 MEL FLETCHER Jun 14, 2022 12:10 SHERRI MOSLEY DO Jun 15, 2022 05:55
== END 2022-06-14 13:51 | disposition hospice, home (50) | DRG 280 ==
LOC: EDUNIT# 23:16 → ER 23:17 → ICU 06-09 02:45 → 4TH 06-10 13:00
PROVIDERS: ADMIT Internal Medicine; ATTEND Internal Medicine
PROC: 5A09357 Assistance with Respiratory Ventilation, Less than 24 Consecutive Hours, Continuous Positive Airway Pressure (ICD-10-PCS; principal; 2022-06-08)
PROC: 5A0945A Assistance with Respiratory Ventilation, 24-96 Consecutive Hours, High Flow/Velocity Cannula (ICD-10-PCS; 2022-06-09)
DX: I11.0 Hypertensive heart disease with heart failure (principal); J96.21 Acute and chronic respiratory failure with hypoxia; I21.A1 Myocardial infarction type 2; I50.33 Acute on chronic diastolic (congestive) heart failure; J18.9 Pneumonia, unspecified organism; I47.2 Ventricular tachycardia; I25.110 Atherosclerotic heart disease of native coronary artery with unstable angina pectoris; J43.2 Centrilobular emphysema; Z20.822 Contact with and (suspected) exposure to COVID-19; I27.20 Pulmonary hypertension, unspecified; I48.0 Paroxysmal atrial fibrillation; F17.210 Nicotine dependence, cigarettes, uncomplicated; E78.2 Mixed hyperlipidemia; K21.9 Gastro-esophageal reflux disease without esophagitis; I73.9 Peripheral vascular disease, unspecified; B19.20 Unspecified viral hepatitis C without hepatic coma; M06.9 Rheumatoid arthritis, unspecified; M19.91 Primary osteoarthritis, unspecified site; I25.2 Old myocardial infarction; F32.A Depression, unspecified; Z95.5 Presence of coronary angioplasty implant and graft; Z95.820 Peripheral vascular angioplasty status with implants and grafts; Z86.16 Personal history of COVID-19; Z28.310 Unvaccinated for COVID-19; Z85.46 Personal history of malignant neoplasm of prostate; Z79.82 Long term (current) use of aspirin; Z79.52 Long term (current) use of systemic steroids
CPT/HCPCS: 36410; 36415; 36600; 71045; 71046; 71275; 76937; 80053; 80306; 80320; 81000; 82550; 82553; 82805; 83605; 83735; 83874; 83880; 84100; 84145; 84484; 85007; 85025; 85027; 85379; 85610; 85652; 85730; 86141; 87040; 87070; 87081; 87101; 87106; 87205; 87636; 93041; 94640; 94660; 94664; 94760; 96374; 96375; 99291